=== PATIENT | male | born 1955 | race Caucasian/White ===

== ENCOUNTER 2016-09-21 14:53 | Emergency (ER) | payer BC ==
[2016-09-21 14:59] VITALS: RESP 18
--- NOTE | 2016-09-21 15:20 | ED ---
General Adult HPI - General Chief complaint: Wound/Laceration Stated complaint: Foot Pain Time Seen by Provider: 09/21/16 15:03 Source: patient, EMS Mode of arrival: EMS Limitations: no limitations - History of Present Illness Initial comments: Patient is a 61-year-old diabetic male who presents to the emergency department for evaluation of a laceration to the plantar surface of his left foot. Patient states that he stepped into a swimming pool and believes that he stepped on a broken plastic thermostat which immediately cut his foot. Patient reports that he saw a broken piece of plastic and is concerned that it may still be inside the wound. Patient takes 81 mg aspirin daily but no other antiplatelet or anticoagulant medications. He does have established follow-up care with the lay out machine operator. He is a poorly controlled diabetic but has no other obvious foot wounds or non-healing ulcers. Patient believes his last tetanus vaccination was in the past 3 years. Patient denies any other complaints or injuries. - Related Data Home Medications Medication Instructions Recorded Confirmed Aspirin EC [Ecotrin Low Dose] 81 mg PO DAILY 09/21/16 09/21/16 Diltiazem Cd [Cardizem Cd] 120 mg PO DAILY 09/21/16 09/21/16 HYDROcodone/APAP 10-325MG [Stanley 1 tab PO BID PRN 09/21/16 09/21/16 10-325] Metoprolol Tartrate [Lopressor] 25 mg PO BID 09/21/16 09/21/16 Pravastatin Sodium [Pravachol] 20 mg PO DAILY 09/21/16 09/21/16 Tamsulosin HCl [Flomax] 0.4 mg PO BID 09/21/16 09/21/16 Testosterone Cypionate 200 mg SQ Q84D 09/21/16 09/21/16 [Depo-Testosterone] metFORMIN HCL 1,000 mg PO BID 09/21/16 09/21/16 Allergies Allergy/AdvReac Type Severity Reaction Status Date / Time No Known Allergies Allergy Unverified 09/21/16 15:25 Review of Systems ROS Statement: Those systems with pertinent positive or pertinent negative responses have been documented in the HPI. ROS Other: All systems not noted in ROS Statement are negative. Eyes: Denies: vision change Respiratory: Denies: cough, dyspnea Cardiovascular: Denies: chest pain, palpitations Endocrine: Denies: fatigue Gastrointestinal: Denies: abdominal pain, nausea, vomiting Genitourinary: Denies: urgency, dysuria Musculoskeletal: Denies: back pain Skin: Reports: other (laceration to left foot) Neurological: Denies: headache Hematological/Lymphatic: Denies: easy bleeding, easy bruising Past Medical History Past Medical History: Diabetes Mellitus Additional Past Medical History / Comment(s): Bypass surgery History of Any Multi-Drug Resistant Organisms: None Reported Past Surgical History: Heart Catheterization Past Psychological History: No Psychological Hx Reported Smoking Status: Former smoker Past Alcohol Use History: None Reported Past Drug Use History: None Reported General Exam Limitations: no limitations General appearance: alert, in no apparent distress, obese Head exam: Present: atraumatic, normocephalic, normal inspection Eye exam: Present: normal appearance, PERRL, EOMI. Absent: scleral icterus, conjunctival injection, periorbital swelling ENT exam: Present: normal exam, mucous membranes moist Neck exam: Present: normal inspection. Absent: tenderness, meningismus, lymphadenopathy Respiratory exam: Present: normal lung sounds bilaterally. Absent: respiratory distress, wheezes, rales, rhonchi, stridor Cardiovascular Exam: Present: regular rate, normal rhythm, normal heart sounds. Absent: systolic murmur, diastolic murmur, rubs, gallop, clicks GI/Abdominal exam: Present: soft, normal bowel sounds. Absent: distended, tenderness, guarding, rebound, rigid Extremities exam: Present: full ROM, normal capillary refill. Absent: tenderness, pedal edema, joint swelling, calf tenderness Left Foot/Toe exam: Present: full ROM, laceration (Approximately 2 cm V-shaped laceration to the plantar surface of the foot). Absent: swelling, ecchymosis, deformity, crepitus, dislocation, erythema, amputation Back exam: Present: normal inspection Neurological exam: Present: alert, oriented X3, CN II-XII intact Psychiatric exam: Present: normal affect, normal mood Skin exam: Present: other (laceration as above) Course Vital Signs 09/21/16 14:55 Temperature 97.3 F L Pulse Rate 88 Respiratory 18 Rate Blood Pressure 150/70 O2 Sat by Pulse 96 Oximetry Procedures - Laceration Laceration #1 Consent Obtained: verbal consent Indication: laceration Site: foot Size (cm): 2 Description: linear Depth: simple, single layer Sedation/Analgesia: none Anesthetic Used: lidocaine 1% Anesthesia Technique: local infiltration Pre-repair: wound explored, irrigated extensively, deep structures intact Type of Sutures: vicryl Size of Sutures: 4-0 Number of Sutures: 4 Technique: simple, interrupted Patient Tolerated Procedure: well, no complications Medical Decision Making - Medical Decision Making Patient was seen and evaluated, vital signs were reviewed History is obtained from the patient Physical exam, laceration to the ball of the left foot Per patient his tetanus vaccination is up-to-date Patient has concern that there is foreign body X-ray ordered X-ray with no obvious foreign body Patient's wound was cleansed with Betadine, anesthetized with local anesthetic and explored there were no foreign bodies identified the wound was repaired with 4 simple interrupted sutures All questions pertaining to care were answered to the best my ability and the patient was discharged home in stable condition advised to follow up with PCP as well as podiatry for close monitoring of this foot wound. Had extensive conversation with the patient as well as his regarding the high risk of poor wound healing and development of chronic foot ulcers due to his poorly controlled diabetes. Patient and expressed understanding. Patient has follow-up appointment with an deckhand engineer next week to discuss further management of his diabetes. Disposition Clinical Impression: Laceration Disposition: HOME SELF-CARE Condition: Good Instructions: Care For Your Absorbable Stitches (ED) Referrals: Francesco Acosta MD [Primary Care Provider] - 1-2 days Time of Disposition: 16:15
--- NOTE | 2016-09-21 15:25 | XR ---
EXAMINATION TYPE: XR foot complete LT DATE OF EXAM: 09/21/2016 CLINICAL HISTORY: pain TECHNIQUE: Frontal, lateral and oblique images of the left foot are obtained. COMPARISON: None. FINDINGS: There is no acute fracture/dislocation evident. The joint spaces appear within normal tanner its. The overlying soft tissue appears unremarkable. IMPRESSION: There is no acute fracture or dislocation. ICD 10 NO FRACTURE, INITIAL EVALUATION
[2016-09-21] MEDS ORDERED: DIPH,PERTUS(ACELL)TETVAC-LF 0.5 ML VIAL IM ONE (16:47)
[2016-09-21 16:48] VITALS: BP 142/63; PULSE 86; TEMP 97.6
== END 2016-09-21 17:00 | disposition home or self-care (01) ==
LOC: EC 14:53
DX: S91.312A Laceration without foreign body, left foot, initial encounter (principal); E11.9 Type 2 diabetes mellitus without complications; Z23 Encounter for immunization; Z95.5 Presence of coronary angioplasty implant and graft; Z79.82 Long term (current) use of aspirin; Z79.84 Long term (current) use of oral hypoglycemic drugs; Z79.899 Other long term (current) drug therapy; Z87.891 Personal history of nicotine dependence; W45.8XXA Other foreign body or object entering through skin, initial encounter; Y92.34 Swimming pool (public) as the place of occurrence of the external cause
CPT/HCPCS: 12001; 90471; 90715; 99283

== ENCOUNTER 2016-10-01 10:28 | Emergency (ER) | payer BC ==
--- NOTE | 2016-10-01 12:17 | ED ---
Skin/Abscess/FB HPI - General Chief complaint: Skin/Abscess/Foreign Body Stated complaint: Revisit-Swollen Foot Source: patient Mode of arrival: wheelchair Limitations: no limitations - History of Present Illness Initial comments: 61-year-old male presented for reevaluation of laceration of the bottom of his left foot. He states 10 days ago that he was seen at this facility for a laceration to the foot which was repaired and he was discharged with instructions to follow with his primary care physician. He states during this time his foot remained sore and became harder to walk on. He was seen by billet worker and given a prescription for Cipro on Tuesday and although he's been taking it during this time his symptoms have continued progress. He states that there is also swelling to the left foot and erythema between his toes. He denies any nausea, vomiting, fevers, chills, chest pain, shortness of breath, myalgias, arthralgias. He states the wound remains intact and he's been cleaning it as often as possible. There is no discharge from the wound and is clean dry and intact. - Related Data Home Medications Medication Instructions Recorded Confirmed Aspirin EC [Ecotrin Low Dose] 81 mg PO DAILY 09/21/16 10/01/16 Diltiazem Cd [Cardizem Cd] 120 mg PO DAILY 09/21/16 10/01/16 HYDROcodone/APAP 10-325MG [Venus 1 tab PO BID PRN 09/21/16 10/01/16 10-325] Metoprolol Tartrate [Lopressor] 12.5 mg PO BID 09/21/16 10/01/16 Pravastatin Sodium [Pravachol] 20 mg PO DAILY 09/21/16 10/01/16 Tamsulosin HCl [Flomax] 0.4 mg PO BID 09/21/16 10/01/16 Testosterone Cypionate 200 mg SQ Q84D 09/21/16 10/01/16 [Depo-Testosterone] Repaglinide [Prandin] 2 mg PO TID 10/01/16 10/01/16 Previous Rx's Medication Instructions Recorded HYDROcodone/APAP 5-325MG [Venus 1 - 2 tab PO Q6HR PRN #14 tab 10/01/16 5-325] Allergies Allergy/AdvReac Type Severity Reaction Status Date / Time No Known Allergies Allergy Verified 10/01/16 10:50 Review of Systems ROS Statement: Those systems with pertinent positive or pertinent negative responses have been documented in the HPI. ROS Other: All systems not noted in ROS Statement are negative. Constitutional: Denies: fever, chills Eyes: Denies: eye pain, eye discharge ENT: Denies: ear pain, throat pain Respiratory: Denies: cough, dyspnea Cardiovascular: Denies: chest pain, palpitations, dyspnea on exertion, orthopnea Endocrine: Denies: fatigue, polydipsia, polyuria Gastrointestinal: Denies: abdominal pain, nausea, vomiting Genitourinary: Denies: urgency, dysuria Musculoskeletal: Reports: other (pain to the inferior portion of his left foot with overlying swelling). Denies: back pain, arthralgia Skin: Reports: other (healing laceration to the bottom of his left foot). Denies: rash, lesions Neurological: Denies: headache, weakness Psychiatric: Denies: anxiety, depression Hematological/Lymphatic: Denies: easy bleeding, easy bruising Past Medical History Past Medical History: Diabetes Mellitus Additional Past Medical History / Comment(s): Bypass surgery History of Any Multi-Drug Resistant Organisms: None Reported Past Surgical History: Heart Catheterization Past Psychological History: No Psychological Hx Reported Smoking Status: Former smoker Past Alcohol Use History: None Reported Past Drug Use History: None Reported General Exam Limitations: no limitations General appearance: alert, in no apparent distress Head exam: Present: atraumatic, normocephalic, normal inspection Eye exam: Present: normal appearance, PERRL, EOMI. Absent: scleral icterus, conjunctival injection, periorbital swelling ENT exam: Present: normal exam, mucous membranes moist Neck exam: Present: normal inspection. Absent: tenderness, meningismus, lymphadenopathy Respiratory exam: Present: normal lung sounds bilaterally. Absent: respiratory distress, wheezes, rales, rhonchi, stridor Cardiovascular Exam: Present: regular rate, normal rhythm, normal heart sounds. Absent: systolic murmur, diastolic murmur, rubs, gallop, clicks GI/Abdominal exam: Present: soft, normal bowel sounds. Absent: distended, tenderness, guarding, rebound, rigid Rectal exam: Present: deferred Extremities exam: Present: full ROM, tenderness (plantar surface of left foot), normal capillary refill, pedal edema (left foot). Absent: joint swelling, calf tenderness Back exam: Present: normal inspection Neurological exam: Present: alert, oriented X3, CN II-XII intact Psychiatric exam: Present: normal affect, normal mood Skin exam: Present: warm, dry, rash (Between toes most consistent with fungal infection), other (laceration well approximated, clean/dry/intact with minimal erythema and almost no induration. There is pedal edema to the left foot. ) Course Vital Signs 10/01/16 10/01/16 10:36 12:25 Temperature 99 F 97.7 F Pulse Rate 52 L 57 L Respiratory 20 16 Rate Blood Pressure 136/59 158/76 O2 Sat by Pulse 97 97 Oximetry Medical Decision Making - Medical Decision Making 61-year-old male presented for evaluation of laceration of bottom of his left foot. He was seen at this facility 10 days ago at which time the laceration was repaired without complication. Since then he has had progressively worsening pain to the foot and today started having swelling to the foot as well. On physical examination the laceration is clean dry and intact without discharge. There is minor erythema distal to the laceration with only minimal induration. There is swelling circumferentially to the foot however there is no spreading erythema/cellulitis. Rash to the interdigit webs is most consistent with a fungal infection. Given that the patient was just started on a course of Cipro and the wound appears to be healing well with only minimal surrounding cellulitis will advise him to continue on the ciprofloxacin , provide him with pain control, and have him follow-up with his primary care physician as an outpatient. He was given return instructions. The patient acknowledged an understanding of this information and agreed with this plan of care. Disposition Clinical Impression: Encounter for wound re-check, Cellulitis Disposition: HOME SELF-CARE Condition: Stable Instructions: Abscess Incision and Drainage (ED) Additional Instructions: Please use medication as discussed. Please follow up with family doctor if symptoms have not improved over the next two days. Please return to the emergency room if your symptoms increase or worsen or for any other concerns. Prescriptions: HYDROcodone/APAP 5-325MG [Venus 5-325] 1 - 2 tab PO Q6HR PRN #14 tab PRN Reason: Analgesia Referrals: Francesco Acosta MD [Primary Care Provider] - 1-2 days Time of Disposition: 12:17
[2016-10-01] MEDS ORDERED: HYDROcodone/APAP 5-325MG 1 EACH TAB PO STA (12:30)
[2016-10-01 12:40] VITALS: BP 158/76; PULSE 57; RESP 16; TEMP 97.7
== END 2016-10-01 12:37 | disposition home or self-care (01) ==
LOC: EC 10:28
DX: L03.116 Cellulitis of left lower limb (principal); S91.312D Laceration without foreign body, left foot, subsequent encounter; E11.9 Type 2 diabetes mellitus without complications; Z87.891 Personal history of nicotine dependence; Z79.82 Long term (current) use of aspirin; Z79.84 Long term (current) use of oral hypoglycemic drugs; Z79.899 Other long term (current) drug therapy; Y92.89 Other specified places as the place of occurrence of the external cause
CPT/HCPCS: 99282

== ENCOUNTER → 2017-09-23 | Outpatient (CLI) | payer BC ==
--- NOTE | 2017-09-23 11:56 | CT ---
EXAMINATION TYPE: CT pelvis w con DATE OF EXAM: 09/23/2017 COMPARISON: None HISTORY: Patient complains of pericoccygeal pain. CT DLP: 1155.1 mGycm Automated exposure control for dose reduction was used. CONTRAST: Performed with IV Contrast, patient injected with 100 mL of Isovue 300. FINDINGS: Right paracentral to the distal coccyx there is a 1.6 x 1.0 cm fluid collection containing foci of ai r and surrounding enhancing thick rim with adjacent phlegmonous changes. This is also adjacent to a l eft paracentral sacral decubitus ulceration with linear extent to the left ischial tuberosity. The di stal coccyx on the sagittal image is irregular and there is been destructive reabsorption of the most distal aspect of the coccyx such as on series 13 image 55. There is subsequent presacral soft tissue swelling and fluid measuring 2.4 cm without enhancing capsule to suggest additional site of abscess. There is thickening of the surrounding posterior pelvic floor musculature likely relating to myositi s. Surrounding the left ischial tuberosity at the most distal aspect of the left sacral linear decubitus ulceration there is surrounding extensive inflammatory fat stranding and phlegmonous changes with a very small fluid collection measuring approximately 0.9 x 1.0 cm and adjacent osseous irregularity kelly ch as on series 11 image 114 of the initial tuberosity suggesting osteomyelitis. Hagan catheter is seen within the nondistended urinary bladder. Bowel is nondilated. Mild mesenteric vascular congestion is seen although motion artifact is noted on the most superior images. Presumed l eft-sided ostomy is present. Increased density of the lower lumbar spine and lumbosacral junction in the region of the paraspinal musculature likely relates to postoperative fibrosis as there is no sign ificant surrounding inflammatory fat stranding and partial visualization of resection of the posterio r elements from L2 through S1 are noted. Anterior bridging osteophytes are seen with intervertebral d isc cage at L5-S1. There is a nonspecific sclerotic focus within the right pelvic bone measuring 1.2 cm with surrounding lucency. Extensive degenerative changes of the femoral acetabular joints are seen. IMPRESSION: 1. FINDINGS SUGGESTIVE OF MULTIFOCAL OSTEOMYELITIS. THE FIRST LOCATION INVOLVES THE DISTAL COCCYX WIT H RIGHT PARACENTRAL DISTAL COCCYGEAL SOFT TISSUE ABSCESS MEASURING ONLY 1.0 X 1.6 CM AND THE SECOND S ITE IS SEEN WITHIN THE LEFT ISCHIAL TUBEROSITY AND SURROUNDING SOFT TISSUE SWELLING IS WITHIN ABSCESS MEASURING 0.9 X 1.0 CM. BOTH SITES DEMONSTRATE CORTICAL IRREGULARITY COMPATIBLE WITH OSTEOMYELITIS. ELONGATED LEFT PARACENTRAL SACRAL DECUBITUS ULCERATION EXTENDS FROM THE SKIN SURFACE TO THE LEFT INIT IAL TUBEROSITY. 2. PRESACRAL SOFT TISSUE DENSITY AND LEFT-SIDED PELVIC FLOOR MUSCULATURE ENLARGEMENT LIKELY REACTIVE AND RELATED TO PRESACRAL EDEMA AND MYOSITIS. 3. SOFT TISSUE DENSITY IN THE PARASPINAL MUSCULATURE OF THE LUMBOSACRAL SPINE LIKELY RELATES TO POSTS URGICAL CHANGE. A Yellow level critical message alert has been initiated for Laureano Cancino MD via the [employer] Critical Results System on 09/23/2017 11:53 AM. This message alert has been sent to Laureano Cancino MD via the preferences provided by the clinician for the receipt of Radiology Critical Findings. [employer] e ID [id number].
== END | disposition home or self-care (01) ==
LOC: RADCTMAIN 10:13
PROVIDERS: ATTEND Internal Medicine Infectious Disease
DX: L02.212 Cutaneous abscess of back [any part, except buttock and flank] (principal); L89.159 Pressure ulcer of sacral region, unspecified stage
CPT/HCPCS: 72193; Q9967

== ENCOUNTER → 2017-10-05 | Day surgery (SDC) | payer BC ==
[2017-10-03 09:08] VITALS: BMI 31.6
[~2017-10-05] MED LIST: LIDOCAINE 1% INJ 10MG/ML (20 ML MDV) ONE; LIDOCAINE 1% INJ 10MG/ML (20 ML MDV) SQ ONE; PIPERACILLIN-TAZOBACTAM 3.375 GM in DEXTROSE/WATER 1 50ML.BAG IVPB ONE
[2017-10-05 11:52] LABS: Glucose,Whole Blood 163 mg/dL (75-99)
[2017-10-05 11:59] LABS: Basophils % (A) 0 %; Eosinophils # (A) 0.2 k/uL (0-0.7); Eosinophils % (A) 2 %; HCT 25.1 % (39.0-53.0); HGB 7.8 gm/dL (13.0-17.5); Hypochromasia Marked; Lymphocytes # (A) 0.8 k/uL (1.0-4.8); Lymphocytes % (A) 11 %; MCH 24.4 pg (25.0-35.0); MCV 78.4 fL (80.0-100.0); Mean Platelet Volume 6.7; Monocytes # (A) 0.3 k/uL (0-1.0); Monocytes % (A) 4 %; Neutrophils # (A) 5.9 k/uL (1.3-7.7); Neutrophils % (A) 80 %; Platelet Count 322 k/uL (150-450); RDW 14.8 % (11.5-15.5); WBC 7.3 k/uL (3.8-10.6)
[2017-10-05 12:05] LABS: Anion Gap 7 mmol/L; Blood Urea Nitrogen 10 mg/dL (9-20); Carbon Dioxide 27 mmol/L (22-30); Chloride 105 mmol/L (98-107); Potassium 3.9 mmol/L (3.5-5.1); Sodium 139 mmol/L (137-145)
--- NOTE | 2017-10-05 14:21 | IR ---
PICC LINE PLACEMENT: HISTORY: Infection requiring long-term antibiotic therapy PROCEDURE: Ultrasound and fluoroscopic guidance of PICC line placement. COMPLICATIONS: None ANESTHESIA: 1. 1% Lidocaine locally. FINDINGS/TECHNIQUE: The procedure was explained to the patient. The risks, complications, benefits and alternatives were discussed and any questions were answered. Informed consent was obtained. The patient was placed supine on the fluoroscopic table and prepped and draped in the usual sterile fas ion. Utilizing a 21 gauge needle and sonographic and fluoroscopic guidance, access in the vein was achieved and there is placement of a 0.018 guidewire. The vein is patent. A 4-F sheath was placed o ya the guidewire. The guidewire and dilator were removed and a 4-F. PICC line was placed through th e sheath with the tip at the level of the SVC. The sheath was removed, the catheter was flushed and sutured into position. The patient was stable throughout the procedure and remained stable upon disc harge from the Department of Radiology. The vein puncture was patent under ultrasound. A cuellar scale image was obtained to document patency of the vein punctured. All elements of the maximal barrier technique were utilized. FLUOROSCOPY TIME: 0.1 minute, one image submitted. IMPRESSION: Successful PICC line placement under ultrasound and fluoroscopic guidance.
[2017-10-05 14:36] VITALS: RESP 18
== END | disposition home or self-care (01) ==
LOC: CATHCVL 11:01
PROVIDERS: ATTEND Radiology Diagnostic Radiology
DX: M86.8X0 Other osteomyelitis, multiple sites (principal); L89.890 Pressure ulcer of other site, unstageable
CPT/HCPCS: 36569; 76937; 77001; 80051; 82565; 84520; 85025; C1751; C1769; J2001; J2543

== ENCOUNTER 2017-11-27 04:30 | Emergency (ER) | payer BC ==
--- NOTE | 2017-11-27 05:30 | XR ---
EXAM: XR Chest, 1 View CLINICAL HISTORY: Dyspnea. TECHNIQUE: Frontal view of the chest. COMPARISON: No relevant prior studies available. FINDINGS: Lungs: No focal consolidation. No evidence of pulmonary edema. Pleural space: No pleural effusion. No pneumothorax. Heart: Unremarkable. No cardiomegaly. Mediastinum: Unremarkable. No mediastinal widening. Bones/joints: Osseous degenerative changes. No evidence of acute fracture. Sternotomy wires present. IMPRESSION: No radiographic evidence of acute chest abnormality.
[2017-11-27 05:58] LABS: ALT 30 U/L (21-72); AST 22 U/L (17-59); Alkaline Phosphatase 94 U/L (38-126); Anion Gap 4 mmol/L; Blood Urea Nitrogen 12 mg/dL (9-20); Calcium 8.7 mg/dL (8.4-10.2); Carbon Dioxide 26 mmol/L (22-30); Chloride 110 mmol/L (98-107); Glucose 111 mg/dL (74-99); Magnesium 1.9 mg/dL (1.6-2.3); Potassium 3.7 mmol/L (3.5-5.1); Sodium 140 mmol/L (137-145); Total Bilirubin 0.6 mg/dL (0.2-1.3); Total Protein 6.2 g/dL (6.3-8.2)
[2017-11-27 06:23] LABS: Creatine Kinase 47 U/L (55-170)
[2017-11-27 06:29] LABS: Troponin I <0.012 ng/mL (0.000-0.034)
[2017-11-27 07:04] LABS: Anisocytosis Slight; Basophils % (A) 1 %; Eosinophils # (A) 0.3 k/uL (0-0.7); Eosinophils % (A) 5 %; HCT 33.7 % (39.0-53.0); HGB 10.8 gm/dL (13.0-17.5); Hypochromasia Slight; Lymphocytes # (A) 0.8 k/uL (1.0-4.8); Lymphocytes % (A) 13 %; MCH 27.7 pg (25.0-35.0); MCHC 32.2 g/dL (31.0-37.0); MCV 85.8 fL (80.0-100.0); Monocytes # (A) 0.4 k/uL (0-1.0); Monocytes % (A) 7 %; Neutrophils # (A) 4.3 k/uL (1.3-7.7); Neutrophils % (A) 74 %; Platelet Count 154 k/uL (150-450); Poikilocytosis Slight; RBC 3.92 m/uL (4.30-5.90); RDW 18.1 % (11.5-15.5); WBC 5.8 k/uL (3.8-10.6)
[2017-11-27 07:31] LABS: INR 1.2 (<1.2); Partial Thromboplastin Time 26.3 sec (22.0-30.0); Prothrombin Time 11.4 sec (9.0-12.0)
[2017-11-27 07:33] LABS: Creatine Kinase MB 1.7 ng/mL (0.0-2.4)
[2017-11-27 07:33] LABS: D-Dimer 0.69 mg/L FEU (<0.60)
--- NOTE | 2017-11-27 08:42 | CT ---
EXAMINATION TYPE: CT angio chest DATE OF EXAM: 11/27/2017 8:37 AM COMPARISON: HISTORY: SOB CT DLP: 798.5 mGycm Automated exposure control for dose reduction was used. CONTRAST: CTA scan of the thorax is performed with IV Contrast, patient injected with 66 mL of Isovue 370, pulm onary embolism protocol. . FINDINGS: There is dependent atelectasis or early consolidation in the dependent portions of both angella gs. There is no significant axillary, mediastinal or hilar adenopathy. There is no evidence of pulmonary embolus. The aorta is normal in caliber without evidence of dissection. The heart is enlarged. There is no pleural or pericardial fluid. There is some increased density with in the gallbladder. I could not exclude radiolucent gallstones. There is hypertrophic spondylosis within the spine. IMPRESSION: #1 THIS EXAMINATION IS NEGATIVE FOR PULMONARY EMBOLUS. 2. CARDIOMEGALY. 3. I CANNOT EXCLUDE RADIOLUCENT GALLSTONES.
--- NOTE | 2017-11-27 09:50 | ED ---
SOB HPI - General Chief Complaint: Shortness of Breath Stated Complaint: MALLIKA Time Seen by Provider: 11/27/17 04:55 Source: family, EMS Mode of arrival: EMS - History of Present Illness Initial Comments: This patient is a 62-year-old man who presents with an episode of dyspnea that came on tonight. The patient woke from sleep gasping to breathe and was feeling very short of breath. Patient's phoned EMS, who arrived promptly and place patient on oxygen. By the time the patient has arrived in the emergency department his symptoms have all resolved. Patient denies having any other associated symptoms. He did not have any chest pain or any sensation of palpitations. No fever or chills. No cough. Patient's does note that he recently has been given diazepam which she uses before bed, to help him relax for his hyperbaric oxygen chamber sessions. She does note that he has seemed very somnolent at times in the medicine seems to be giving him slurred speech. MD Complaint: shortness of breath -: minutes(s) Severity: severe Consistency: now resolved Improves With: oxygen Worsens With: nothing Context: other (medication change) Associated Symptoms: denies other symptoms Treatments Prior to Arrival: oxygen - Related Data Home Oxygen Therapy: No Home Medications Medication Instructions Recorded Confirmed Diltiazem Cd [Cardizem Cd] 120 mg PO DAILY 09/21/16 11/24/17 Metoprolol Tartrate [Lopressor] 25 mg PO BID 09/21/16 11/24/17 Apixaban [Eliquis] 5 mg PO BID 07/27/17 11/24/17 Atorvastatin [Lipitor] 20 mg PO HS 07/27/17 11/24/17 Finasteride [Proscar] 5 mg PO DAILY 07/27/17 11/24/17 HYDROcodone/APAP 7.5-325MG [[place] 1 tab PO Q6HR PRN 07/27/17 11/24/17 7.5-325] Insulin Glargine [Lantus] 40 unit SQ HS 07/27/17 11/24/17 Loratadine [Claritin] 10 mg PO DAILY 07/27/17 11/24/17 Multivitamins, Thera [Multivitamin 1 tab PO DAILY 07/27/17 11/24/17 (formulary)] Ferrous Sulfate [Feosol] 325 mg PO DAILY 10/03/17 11/24/17 Lisinopril [Prinivil] 5 mg PO DAILY 10/03/17 11/24/17 Pantoprazole Sodium 40 mg PO DAILY 10/03/17 11/24/17 Pravastatin Sodium [Pravachol] 20 mg PO DAILY 10/03/17 11/24/17 Repaglinide [Prandin] 2 mg PO AC-TID 10/03/17 11/24/17 Zinc 25 mg PO DAILY 10/03/17 11/24/17 amLODIPine [Norvasc] 5 mg PO DAILY 10/03/17 11/24/17 Piperacillin-Tazobactam [Zosyn] 3.375 gm IVPB Q6H 10/06/17 11/24/17 Diazepam [Valium] 5 mg PO HS 11/17/17 11/24/17 Allergies Allergy/AdvReac Type Severity Reaction Status Date / Time No Known Allergies Allergy Verified 11/24/17 09:00 Review of Systems ROS Statement: Those systems with pertinent positive or pertinent negative responses have been documented in the HPI. ROS Other: All systems not noted in ROS Statement are negative. Constitutional: Denies: fever, chills, weakness Eyes: Denies: vision change Respiratory: Reports: as per HPI, dyspnea. Denies: cough, wheezes, hemoptysis Cardiovascular: Denies: chest pain, palpitations, orthopnea, edema, syncope Gastrointestinal: Denies: abdominal pain, vomiting, diarrhea Genitourinary: Denies: dysuria, hematuria Musculoskeletal: Denies: back pain Skin: Denies: rash Neurological: Denies: headache Psychiatric: Reports: as per HPI, anxiety Past Medical History Past Medical History: Diabetes Mellitus, Deep Vein Thrombosis (DVT), GERD/Reflux , Hyperlipidemia, Hypertension Additional Past Medical History / Comment(s): DVT BILAT LEGS. PT IS BED RIDDEN- WOUNDS TO COCCYX AND BUTTOCKS WITH TUNNELLING. PARALIZED WAIST DOWN SINCE LAMINECTOMY FEB 15, 2017; has wound vac; History of Any Multi-Drug Resistant Organisms: MRSA, VRE Date of last positivie culture/infection: 07/28/17 VRE & MRSA MDRO Source:: Coccyx Past Surgical History: Back Surgery, Bowel Resection, Coronary Bypass/CABG, Heart Catheterization Additional Past Surgical History / Comment(s): LAMINECTOMY 02/15/17. COLONOSCOPY. COLOSTOMY. SUB PUBIC CATH. BACK SX X 4 Past Anesthesia/Blood Transfusion Reactions: Previous Problems w/ Anesthesia Additional Past Anesthesia/Blood Transfusion Reaction / Comment(s): SLOW TO COME OUT OF ANESTHESIA AFTER LAST PROCEDURE Past Psychological History: Anxiety Smoking Status: Former smoker Past Alcohol Use History: None Reported Past Drug Use History: None Reported - Past Family History Brother(s) Family Medical History: Cancer General Exam General appearance: alert, in no apparent distress Head exam: Present: atraumatic, normocephalic Eye exam: Present: normal appearance. Absent: scleral icterus, conjunctival injection ENT exam: Present: mucous membranes dry Neck exam: Present: normal inspection, other (No JVD) Respiratory exam: Present: normal lung sounds bilaterally. Absent: respiratory distress, wheezes, rales, rhonchi, stridor, accessory muscle use, decreased breath sounds, prolonged expiratory Cardiovascular Exam: Present: regular rate, normal rhythm, normal heart sounds. Absent: systolic murmur, diastolic murmur, rubs, gallop GI/Abdominal exam: Present: soft. Absent: distended, tenderness, guarding, rebound, mass Extremities exam: Present: normal inspection, normal capillary refill. Absent: pedal edema, calf tenderness Neurological exam: Present: alert Skin exam: Present: warm, dry, intact, normal color. Absent: rash, cyanosis, diaphoretic, erythema, petechiae, pallor, mottled Course Vital Signs 11/27/17 04:43 Temperature 97.0 F L Pulse Rate 67 Respiratory 16 Rate Blood Pressure 131/60 O2 Sat by Pulse 97 Oximetry Medical Decision Making - Medical Decision Making Patient is 62-year-old man presenting with an episode of dyspnea that has resolved by the time he has arrived. His workup is negative. I did have a fairly lengthy discussion with the patient and his and they informed me that he has been suspected of having sleep apnea by a number of his previous physicians, but they were not able to obtain a sleep study for him. I did take the patient also oxygen and had a 20 minute conversation and he at no point becomes dyspneic from conversation and he remains comfortable. I discussed admission for further workup, but he is feeling well and wants go home. I did discuss follow-up with the mold repair technician to see about having sleep study, as well as return parameters. - Lab Data Result diagrams: 11/27/17 06:31 11/27/17 05:29 Lab Results 11/27/17 11/27/17 11/27/17 Range/Units 05:29 05:29 06:30 WBC (3.8-10.6) k/uL RBC (4.30-5.90) m/uL Hgb (13.0-17.5) gm/dL Hct (39.0-53.0) % MCV (80.0-100.0) fL MCH (25.0-35.0) pg MCHC (31.0-37.0) g/dL RDW (11.5-15.5) % Plt Count (150-450) k/uL Neutrophils % % Lymphocytes % % Monocytes % % Eosinophils % % Basophils % % Neutrophils # (1.3-7.7) k/uL Lymphocytes # (1.0-4.8) k/uL Monocytes # (0-1.0) k/uL Eosinophils # (0-0.7) k/uL Basophils # (0-0.2) k/uL Hypochromasia Poikilocytosis Anisocytosis PT 11.4 (9.0-12.0) sec INR 1.2 H (<1.2) APTT 26.3 (22.0-30.0) sec D-Dimer 0.69 H (<0.60) mg/L FEU Sodium 140 (137-145) mmol/L Potassium 3.7 (3.5-5.1) mmol/L Chloride 110 H (98-107) mmol/L Carbon Dioxide 26 (22-30) mmol/L Anion Gap 4 mmol/L BUN 12 (9-20) mg/dL Creatinine 0.75 (0.66-1.25) mg/dL Est GFR (CKD-EPI)AfAm >90 (>60 ml/min/1.73 sqM) Est GFR (CKD-EPI)NonAf >90 (>60 ml/min/1.73 sqM) Glucose 111 H (74-99) mg/dL Plasma Lactic Acid [place] (0.7-2.0) mmol/L Calcium 8.7 (8.4-10.2) mg/dL Magnesium 1.9 (1.6-2.3) mg/dL Total Bilirubin 0.6 (0.2-1.3) mg/dL AST 22 (17-59) U/L ALT 30 (21-72) U/L Alkaline Phosphatase 94 (38-126) U/L Total Creatine Kinase 47 L (55-170) U/L CK-MB (CK-2) 2.0 (0.0-2.4) ng/mL CK-MB (CK-2) Rel Index 4.3 Troponin I <0.012 (0.000-0.034) ng/mL NT-Pro-B Natriuret Pep pg/mL Total Protein 6.2 L (6.3-8.2) g/dL Albumin 3.0 L (3.5-5.0) g/dL 11/27/17 11/27/17 11/27/17 Range/Units 06:30 06:31 06:31 WBC 5.8 (3.8-10.6) k/uL RBC 3.92 L (4.30-5.90) m/uL Hgb 10.8 L (13.0-17.5) gm/dL Hct 33.7 L (39.0-53.0) % MCV 85.8 (80.0-100.0) fL MCH 27.7 (25.0-35.0) pg MCHC 32.2 (31.0-37.0) g/dL RDW 18.1 H (11.5-15.5) % Plt Count 154 (150-450) k/uL Neutrophils % 74 % Lymphocytes % 13 % Monocytes % 7 % Eosinophils % 5 % Basophils % 1 % Neutrophils # 4.3 (1.3-7.7) k/uL Lymphocytes # 0.8 L (1.0-4.8) k/uL Monocytes # 0.4 (0-1.0) k/uL Eosinophils # 0.3 (0-0.7) k/uL Basophils # 0.0 (0-0.2) k/uL Hypochromasia Slight Poikilocytosis Slight Anisocytosis Slight PT (9.0-12.0) sec INR (<1.2) APTT (22.0-30.0) sec D-Dimer (<0.60) mg/L FEU Sodium (137-145) mmol/L Potassium (3.5-5.1) mmol/L Chloride (98-107) mmol/L Carbon Dioxide (22-30) mmol/L Anion Gap mmol/L BUN (9-20) mg/dL Creatinine (0.66-1.25) mg/dL Est GFR (CKD-EPI)AfAm (>60 ml/min/1.73 sqM) Est GFR (CKD-EPI)NonAf (>60 ml/min/1.73 sqM) Glucose (74-99) mg/dL Plasma Lactic Acid [place] 0.9 (0.7-2.0) mmol/L Calcium (8.4-10.2) mg/dL Magnesium (1.6-2.3) mg/dL Total Bilirubin (0.2-1.3) mg/dL AST (17-59) U/L ALT (21-72) U/L Alkaline Phosphatase (38-126) U/L Total Creatine Kinase (55-170) U/L CK-MB (CK-2) (0.0-2.4) ng/mL CK-MB (CK-2) Rel Index Troponin I (0.000-0.034) ng/mL NT-Pro-B Natriuret Pep 654 pg/mL Total Protein (6.3-8.2) g/dL Albumin (3.5-5.0) g/dL 11/27/17 Range/Units 06:31 WBC (3.8-10.6) k/uL RBC (4.30-5.90) m/uL Hgb (13.0-17.5) gm/dL Hct (39.0-53.0) % MCV (80.0-100.0) fL MCH (25.0-35.0) pg MCHC (31.0-37.0) g/dL RDW (11.5-15.5) % Plt Count (150-450) k/uL Neutrophils % % Lymphocytes % % Monocytes % % Eosinophils % % Basophils % % Neutrophils # (1.3-7.7) k/uL Lymphocytes # (1.0-4.8) k/uL Monocytes # (0-1.0) k/uL Eosinophils # (0-0.7) k/uL Basophils # (0-0.2) k/uL Hypochromasia Poikilocytosis Anisocytosis PT (9.0-12.0) sec INR (<1.2) APTT (22.0-30.0) sec D-Dimer (<0.60) mg/L FEU Sodium (137-145) mmol/L Potassium (3.5-5.1) mmol/L Chloride (98-107) mmol/L Carbon Dioxide (22-30) mmol/L Anion Gap mmol/L BUN (9-20) mg/dL Creatinine (0.66-1.25) mg/dL Est GFR (CKD-EPI)AfAm (>60 ml/min/1.73 sqM) Est GFR (CKD-EPI)NonAf (>60 ml/min/1.73 sqM) Glucose (74-99) mg/dL Plasma Lactic Acid [place] (0.7-2.0) mmol/L Calcium (8.4-10.2) mg/dL Magnesium (1.6-2.3) mg/dL Total Bilirubin (0.2-1.3) mg/dL AST (17-59) U/L ALT (21-72) U/L Alkaline Phosphatase (38-126) U/L Total Creatine Kinase 46 L (55-170) U/L CK-MB (CK-2) 1.7 (0.0-2.4) ng/mL CK-MB (CK-2) Rel Index 3.7 Troponin I (0.000-0.034) ng/mL NT-Pro-B Natriuret Pep pg/mL Total Protein (6.3-8.2) g/dL Albumin (3.5-5.0) g/dL - EKG Data -: EKG Interpreted by De EKG shows normal: sinus rhythm, axis (Normal), intervals (Normal), QRS complexes (There is an incomplete right bundle-branch block), ST-T waves (Normal ) Rate: normal (Rate is proximal 60 8 PM) Interpretation: LVH Disposition Clinical Impression: Dyspnea Disposition: HOME SELF-CARE Condition: Fair Instructions: Sleep Apnea (DC), Shortness of Breath (ED) Is patient prescribed a controlled substance at d/c from ED?: No Referrals: Gilmer Lopez MD [Primary Care Provider] - 1-2 days Bernice Abreu MD [STAFF PHYSICIAN] - 1-2 days
[2017-11-27 10:22] VITALS: BP 177/81; PULSE 62; RESP 18; TEMP 98.6
== END 2017-11-27 11:05 | disposition home or self-care (01) ==
LOC: EC 04:30
DX: R06.02 Shortness of breath (principal); E11.9 Type 2 diabetes mellitus without complications; K21.9 Gastro-esophageal reflux disease without esophagitis; E78.5 Hyperlipidemia, unspecified; I10 Essential (primary) hypertension; F41.9 Anxiety disorder, unspecified; Z79.01 Long term (current) use of anticoagulants; Z79.4 Long term (current) use of insulin; Z79.899 Other long term (current) drug therapy; Z86.718 Personal history of other venous thrombosis and embolism; Z87.891 Personal history of nicotine dependence; Z95.1 Presence of aortocoronary bypass graft
CPT/HCPCS: 99285; 36415; 93005; 85379; 83880; 80053; 82550; 82553; 83605; 83735; 84484; 85025; 85610; 85730; 87040; 71045; 71275; Q9967

== ENCOUNTER 2017-12-08 10:05 | Inpatient (IN) | payer BC ==
[2017-12-08] MEDS ORDERED: SODIUM CHLORIDE 0.9% 1,000 ML IV ONE ×2 (10:33)
--- NOTE | 2017-12-08 10:39 | ED ---
Altered Mental Status HPI - General Chief Complaint: Altered Mental Status Stated Complaint: ALTERED MENTAL STATUS Time Seen by Provider: 12/08/17 10:07 Source: family, RN/MD, RN notes reviewed Mode of arrival: wheelchair Limitations: altered mental status, physical limitation - History of Present Illness Initial Comments: This is a 62-year-old male who is receiving IV antibiotics through a PICC line and being seen in the wound clinic for chronic wound apparently has had a decline over last 2 weeks was discussed over this past week he's had lethargy mood swings decreased oral intake confusion and some difficulty with speech. He was sent here for further evaluation no reports of nausea vomiting fevers chills sweats. He has an indwelling [place] catheter. No reports of any falls. No other known modifying factors at this time. MD Complaint: altered mental status, confusion, decreased responsiveness, weakness - Related Data Home Medications Medication Instructions Recorded Confirmed Diltiazem Cd [Cardizem Cd] 120 mg PO DAILY 09/21/16 12/08/17 Metoprolol Tartrate [Lopressor] 25 mg PO BID 09/21/16 12/08/17 Apixaban [Eliquis] 5 mg PO BID 07/27/17 12/08/17 Atorvastatin [Lipitor] 20 mg PO HS 07/27/17 12/08/17 Finasteride [Proscar] 5 mg PO DAILY 07/27/17 12/08/17 HYDROcodone/APAP 7.5-325MG [[place] 1 tab PO Q6HR PRN 07/27/17 12/08/17 7.5-325] Insulin Glargine [Lantus] 40 unit SQ HS 07/27/17 12/08/17 Loratadine [Claritin] 10 mg PO DAILY 07/27/17 12/08/17 Multivitamins, Thera [Multivitamin 1 tab PO DAILY 07/27/17 12/08/17 (formulary)] Ferrous Sulfate [Feosol] 325 mg PO DAILY 10/03/17 12/08/17 Lisinopril [Prinivil] 5 mg PO DAILY 10/03/17 12/08/17 Pantoprazole Sodium 40 mg PO DAILY 10/03/17 12/08/17 Pravastatin Sodium [Pravachol] 20 mg PO DAILY 10/03/17 12/08/17 Repaglinide [Prandin] 2 mg PO AC-TID 10/03/17 12/08/17 Zinc 25 mg PO DAILY 10/03/17 12/08/17 amLODIPine [Norvasc] 5 mg PO DAILY 10/03/17 12/08/17 Piperacillin-Tazobactam [Zosyn] 3.375 gm IVPB Q6H 10/06/17 12/08/17 Diazepam [Valium] 5 mg PO HS 11/17/17 12/08/17 Allergies Allergy/AdvReac Type Severity Reaction Status Date / Time No Known Allergies Allergy Verified 12/08/17 10:36 Review of Systems ROS Statement: Those systems with pertinent positive or pertinent negative responses have been documented in the HPI. ROS Other: All systems not noted in ROS Statement are negative. Past Medical History Past Medical History: Diabetes Mellitus, Deep Vein Thrombosis (DVT), GERD/Reflux , Hyperlipidemia, Hypertension Additional Past Medical History / Comment(s): DVT BILAT LEGS. PT IS BED RIDDEN- WOUNDS TO COCCYX AND BUTTOCKS WITH TUNNELLING. PARALIZED WAIST DOWN SINCE LAMINECTOMY FEB 15, 2017; has wound vac; History of Any Multi-Drug Resistant Organisms: MRSA, VRE Date of last positivie culture/infection: 07/28/17 VRE & MRSA MDRO Source:: Coccyx Past Surgical History: Back Surgery, Bowel Resection, Coronary Bypass/CABG, Heart Catheterization Additional Past Surgical History / Comment(s): LAMINECTOMY 02/15/17. COLONOSCOPY. COLOSTOMY. SUB PUBIC CATH. BACK SX X 4 Past Anesthesia/Blood Transfusion Reactions: Previous Problems w/ Anesthesia Additional Past Anesthesia/Blood Transfusion Reaction / Comment(s): SLOW TO COME OUT OF ANESTHESIA AFTER LAST PROCEDURE Past Psychological History: Anxiety Smoking Status: Former smoker Past Alcohol Use History: None Reported Past Drug Use History: None Reported - Past Family History Brother(s) Family Medical History: Cancer General Exam - General Exam Comments Initial Comments: This a well-developed obtunded male Limitations: altered mental status, physical limitation General appearance: obtunded Head exam: Present: atraumatic, normocephalic, normal inspection Eye exam: Present: normal appearance, PERRL, EOMI. Absent: scleral icterus, conjunctival injection, periorbital swelling ENT exam: Present: mucous membranes dry Neck exam: Present: normal inspection. Absent: tenderness, meningismus, lymphadenopathy Respiratory exam: Present: normal lung sounds bilaterally. Absent: respiratory distress, wheezes, rales, rhonchi, stridor Cardiovascular Exam: Present: regular rate, normal rhythm, normal heart sounds. Absent: systolic murmur, diastolic murmur, rubs, gallop, clicks GI/Abdominal exam: Present: soft, normal bowel sounds. Absent: distended, tenderness, guarding, rebound, rigid Extremities exam: Present: normal inspection, full ROM, normal capillary refill , other (PICC line in the left upper extremity). Absent: tenderness, pedal edema, joint swelling, calf tenderness Back exam: Present: normal inspection Neurological exam: Present: altered, CN II-XII intact Psychiatric exam: Present: other (Able to evaluate) Skin exam: Present: warm, dry, intact, normal color. Absent: rash Course Vital Signs 12/08/17 12/08/17 10:07 12:00 Temperature 97.7 F Pulse Rate 62 69 Respiratory 20 18 Rate Blood Pressure 150/76 165/77 O2 Sat by Pulse 96 97 Oximetry Medical Decision Making - Medical Decision Making I did discuss Pfizer the patient has and with Dr. Lopez patient will be admitted with neurological consultation and continued monitoring. Patient still demonstrates some difficulty with speech which his did note has been going on for about a week or so. - Lab Data Result diagrams: 12/08/17 10:30 12/08/17 10:30 Lab Results 12/08/17 12/08/17 12/08/17 Range/Units 10:25 10:30 10:30 WBC (3.8-10.6) k/uL RBC (4.30-5.90) m/uL Hgb (13.0-17.5) gm/dL Hct (39.0-53.0) % MCV (80.0-100.0) fL MCH (25.0-35.0) pg MCHC (31.0-37.0) g/dL RDW (11.5-15.5) % Plt Count (150-450) k/uL Neutrophils % % Lymphocytes % % Monocytes % % Eosinophils % % Basophils % % Neutrophils # (1.3-7.7) k/uL Lymphocytes # (1.0-4.8) k/uL Monocytes # (0-1.0) k/uL Eosinophils # (0-0.7) k/uL Basophils # (0-0.2) k/uL Hypochromasia Poikilocytosis Anisocytosis PT (9.0-12.0) sec INR (<1.2) APTT (22.0-30.0) sec Sodium (137-145) mmol/L Potassium (3.5-5.1) mmol/L Chloride (98-107) mmol/L Carbon Dioxide (22-30) mmol/L Anion Gap mmol/L BUN (9-20) mg/dL Creatinine (0.66-1.25) mg/dL Est GFR (CKD-EPI)AfAm (>60 ml/min/1.73 sqM) Est GFR (CKD-EPI)NonAf (>60 ml/min/1.73 sqM) Glucose (74-99) mg/dL Calcium (8.4-10.2) mg/dL Magnesium (1.6-2.3) mg/dL Total Bilirubin (0.2-1.3) mg/dL AST (17-59) U/L ALT (21-72) U/L Alkaline Phosphatase (38-126) U/L Ammonia <9 (<30) umol/L Total Creatine Kinase 53 L (55-170) U/L CK-MB (CK-2) 2.3 (0.0-2.4) ng/mL CK-MB (CK-2) Rel Index 4.3 Troponin I <0.012 (0.000-0.034) ng/mL Total Protein (6.3-8.2) g/dL Albumin (3.5-5.0) g/dL Urine Color Yellow Urine Appearance Cloudy (Clear) Urine pH 5.5 (5.0-8.0) Ur Specific [place] 1.026 (1.001-1.035) Urine Protein 1+ H (Negative) Urine Glucose (UA) Trace H (Negative) Urine Ketones 2+ H (Negative) Urine Blood Moderate H (Negative) Urine Nitrite Negative (Negative) Urine Bilirubin Negative (Negative) Urine Urobilinogen <2.0 (<2.0) mg/dL Ur Leukocyte Esterase Small H (Negative) Urine RBC 36 H (0-5) /hpf Urine WBC 12 H (0-5) /hpf Ur Squamous Epith Cells <1 (0-4) /hpf Calcium Oxalate Crystal Occasional H (None) /hpf Urine Mucus Rare H (None) /hpf Urine Opiates Screen Not Detected (NotDetected) Ur Oxycodone Screen Not Detected (NotDetected) Urine Methadone Screen Not Detected (NotDetected) Ur Propoxyphene Screen Not Detected (NotDetected) Ur Barbiturates Screen Not Detected (NotDetected) U Tricyclic Antidepress Detected H (NotDetected) Ur Phencyclidine Scrn Not Detected (NotDetected) Ur Amphetamines Screen Not Detected (NotDetected) U Methamphetamines Scrn Not Detected (NotDetected) U Benzodiazepines Scrn Detected H (NotDetected) Urine Cocaine Screen Not Detected (NotDetected) U Marijuana (THC) Screen Not Detected (NotDetected) 12/08/17 12/08/17 12/08/17 Range/Units 10:30 10:30 10:30 WBC 6.8 (3.8-10.6) k/uL RBC 4.00 L (4.30-5.90) m/uL Hgb 11.2 L (13.0-17.5) gm/dL Hct 34.5 L (39.0-53.0) % MCV 86.1 (80.0-100.0) fL MCH 27.9 (25.0-35.0) pg MCHC 32.4 (31.0-37.0) g/dL RDW 17.9 H (11.5-15.5) % Plt Count 189 (150-450) k/uL Neutrophils % 75 % Lymphocytes % 14 % Monocytes % 5 % Eosinophils % 4 % Basophils % 0 % Neutrophils # 5.1 (1.3-7.7) k/uL Lymphocytes # 0.9 L (1.0-4.8) k/uL Monocytes # 0.4 (0-1.0) k/uL Eosinophils # 0.3 (0-0.7) k/uL Basophils # 0.0 (0-0.2) k/uL Hypochromasia Slight Poikilocytosis Slight Anisocytosis Slight PT 11.5 (9.0-12.0) sec INR 1.2 H (<1.2) APTT 26.1 (22.0-30.0) sec Sodium 143 (137-145) mmol/L Potassium 3.5 (3.5-5.1) mmol/L Chloride 109 H (98-107) mmol/L Carbon Dioxide 28 (22-30) mmol/L Anion Gap 6 mmol/L BUN 11 (9-20) mg/dL Creatinine 0.77 (0.66-1.25) mg/dL Est GFR (CKD-EPI)AfAm >90 (>60 ml/min/1.73 sqM) Est GFR (CKD-EPI)NonAf >90 (>60 ml/min/1.73 sqM) Glucose 118 H (74-99) mg/dL Calcium 9.1 (8.4-10.2) mg/dL Magnesium 1.9 (1.6-2.3) mg/dL Total Bilirubin 0.7 (0.2-1.3) mg/dL AST 23 (17-59) U/L ALT 24 (21-72) U/L Alkaline Phosphatase 115 (38-126) U/L Ammonia (<30) umol/L Total Creatine Kinase (55-170) U/L CK-MB (CK-2) (0.0-2.4) ng/mL CK-MB (CK-2) Rel Index Troponin I (0.000-0.034) ng/mL Total Protein 6.6 (6.3-8.2) g/dL Albumin 3.3 L (3.5-5.0) g/dL Urine Color Urine Appearance (Clear) Urine pH (5.0-8.0) Ur Specific [place] (1.001-1.035) Urine Protein (Negative) Urine Glucose (UA) (Negative) Urine Ketones (Negative) Urine Blood (Negative) Urine Nitrite (Negative) Urine Bilirubin (Negative) Urine Urobilinogen (<2.0) mg/dL Ur Leukocyte Esterase (Negative) Urine RBC (0-5) /hpf Urine WBC (0-5) /hpf Ur Squamous Epith Cells (0-4) /hpf Calcium Oxalate Crystal (None) /hpf Urine Mucus (None) /hpf Urine Opiates Screen (NotDetected) Ur Oxycodone Screen (NotDetected) Urine Methadone Screen (NotDetected) Ur Propoxyphene Screen (NotDetected) Ur Barbiturates Screen (NotDetected) U Tricyclic Antidepress (NotDetected) Ur Phencyclidine Scrn (NotDetected) Ur Amphetamines Screen (NotDetected) U Methamphetamines Scrn (NotDetected) U Benzodiazepines Scrn (NotDetected) Urine Cocaine Screen (NotDetected) U Marijuana (THC) Screen (NotDetected) - EKG Data -: EKG Interpreted by Me EKG shows normal: sinus rhythm (Sinus rhythm rate 67 appear interval 154 QRS duration 110 daily since QTC 442/467 nonspecific T-wave configuration prolonged QT) - Radiology Data Radiology results: report reviewed (I did review the imaging and reports there is evidence of maxillary sinus disease no other acute findings however.), image reviewed Disposition Clinical Impression: Delirium due to general medical condition, Altered mental status Disposition: ADMITTED IP TO THIS HOSP Condition: Stable Referrals: Gilmer Lopez MD [Primary Care Provider] - 1-2 days
[2017-12-08 11:03] LABS: Anisocytosis Slight; Basophils % (A) 0 %; Eosinophils # (A) 0.3 k/uL (0-0.7); Eosinophils % (A) 4 %; HCT 34.5 % (39.0-53.0); HGB 11.2 gm/dL (13.0-17.5); Hypochromasia Slight; Lymphocytes # (A) 0.9 k/uL (1.0-4.8); Lymphocytes % (A) 14 %; MCH 27.9 pg (25.0-35.0); MCHC 32.4 g/dL (31.0-37.0); MCV 86.1 fL (80.0-100.0); Mean Platelet Volume 7.3; Monocytes # (A) 0.4 k/uL (0-1.0); Monocytes % (A) 5 %; Neutrophils # (A) 5.1 k/uL (1.3-7.7); Neutrophils % (A) 75 %; Platelet Count 189 k/uL (150-450); Poikilocytosis Slight; RDW 17.9 % (11.5-15.5); WBC 6.8 k/uL (3.8-10.6)
[2017-12-08 11:08] LABS: INR 1.2 (<1.2); Partial Thromboplastin Time 26.1 sec (22.0-30.0); Prothrombin Time 11.5 sec (9.0-12.0)
[2017-12-08 11:17] LABS: ALT 24 U/L (21-72); AST 23 U/L (17-59); Albumin 3.3 g/dL (3.5-5.0); Alkaline Phosphatase 115 U/L (38-126); Anion Gap 6 mmol/L; Blood Urea Nitrogen 11 mg/dL (9-20); Calcium 9.1 mg/dL (8.4-10.2); Carbon Dioxide 28 mmol/L (22-30); Chloride 109 mmol/L (98-107); Glucose 118 mg/dL (74-99); Magnesium 1.9 mg/dL (1.6-2.3); Potassium 3.5 mmol/L (3.5-5.1); Sodium 143 mmol/L (137-145); Total Bilirubin 0.7 mg/dL (0.2-1.3); Total Protein 6.6 g/dL (6.3-8.2)
[2017-12-08 11:17] LABS: Appearance,Urine Cloudy (Clear); Bilirubin,Urine Negative (Negative); Blood,Urine Moderate (Negative); Calcium Oxalate Crystals,Urine Occasional /hpf; Color,Urine Yellow; Glucose,Urine (UA) Trace (Negative); Ketones,Urine 2+ (Negative); Leukocyte Esterase,Urine Small (Negative); Mucus,Urine Rare /hpf; Nitrite,Urine Negative (Negative); PH, Urine 5.5 (5.0-8.0); Protein,Urine 1+ (Negative); RBC,Urine 36 /hpf (0-5); Specific Gravity,Urine 1.026 (1.001-1.035); Squamous Epithelial Cell,Urine <1 /hpf (0-4); Urobilinogen,Urine <2.0 mg/dL (<2.0); WBC,Urine 12 /hpf (0-5)
[2017-12-08 11:23] LABS: Amphetamine Screen,Urine Not Detected (NotDetected); Barbiturate Screen,Urine Not Detected (NotDetected); Benzodiazepines Screen,Urine Detected (NotDetected); Cocaine Screen,Urine Not Detected (NotDetected); Methadone Screen, Urine Not Detected (NotDetected); Opiate Screen,Urine Not Detected (NotDetected); Oxycodone Screen, Urine Not Detected (NotDetected); Phencyclidine Screen,Urine Not Detected (NotDetected); Tricyclic Antidepressant,Urine Detected (NotDetected); Urn Cannabinoid Scrn Not Detected (NotDetected)
[2017-12-08 11:24] LABS: Creatine Kinase 53 U/L (55-170)
[2017-12-08 11:35] LABS: Creatine Kinase MB 2.3 ng/mL (0.0-2.4); Troponin I <0.012 ng/mL (0.000-0.034)
--- NOTE | 2017-12-08 11:49 | XR ---
EXAMINATION TYPE: XR chest 2V DATE OF EXAM: 12/08/2017 COMPARISON: Prior chest 11/27/2017 HISTORY: Altered mental status TECHNIQUE: Frontal and lateral views of the chest are obtained. FINDINGS: The patient is post median sternotomy. There are overlying cardiac leads. Left-sided PICC l ine is in place, distal tip is overlying the superior vena cava. There is no focal air space opacity, pleural effusion, or pneumothorax seen. The cardiac silhouette size is within normal limits. The osseous structures are intact. IMPRESSION: No acute cardiopulmonary process.
--- NOTE | 2017-12-08 11:57 | CT ---
EXAMINATION TYPE: CT brain wo con DATE OF EXAM: 12/08/2017 COMPARISON: None HISTORY: AMS CT DLP: 986.50 mGycm Automated exposure control for dose reduction was used. Helical imaging through the brain. FINDINGS: There is no hemorrhage or hydrocephalus. Cerebral vascular calcifications are present. Periventricula r white matter shows patchy low attenuation. Cortical atrophy is likely age-related. Calvarium is int act. Paranasal sinuses are well aerated, some mild mucosal disease present in the maxillary sinus. In flammatory changes are present in the bilateral mastoid air cells. IMPRESSION: AGE-RELATED CHANGES OF ATROPHY AND PROBABLE CHRONIC SMALL VESSEL ISCHEMIA, CONSIDER MRI FOLLOW-UP INDICATED. INFLAMMATORY CHANGES MASTOID AIR CELLS, MAXILLARY SINUSES.
[2017-12-08] MEDS ORDERED: LORazepam 2 MG/ML INJ IV STA (14:45)
[2017-12-08] MEDS ORDERED: NALOXONE 0.4 MG/ML 1 ML VIAL IV PRN (15:05)
[2017-12-08] MEDS ORDERED: HYDROcodone/APAP 7.5-325MG 1 EACH TAB PO PRN (15:07)
[2017-12-08] MEDS ORDERED: PIPERACILLIN-TAZOBACTAM 3.375 GM VIAL IVPB SCH (15:15)
[2017-12-08] MEDS: PIPERACILLIN-TAZOBACTAM 3.375 GM in DEXTROSE/WATER 1 50ML.BAG IVPB SCH (16:09)
[2017-12-08 19:53] LABS: Glucose,Whole Blood 121 mg/dL (75-99)
[2017-12-08] MEDS: REPAGLINIDE 1 MG TAB PO SCH (19:53)
[2017-12-08] MEDS ORDERED: LORazepam 2 MG/ML INJ IV PRN (20:34)
[2017-12-08] MEDS: APIXABAN 5 MG TAB PO SCH (20:35)
[2017-12-08] MEDS: METOPROLOL TARTRATE 25 MG TAB PO SCH (20:36)
[2017-12-08] MEDS ORDERED: ATORVASTATIN 20 MG TAB PO SCH (21:00)
[2017-12-08] MEDS ORDERED: DIAZEPAM 5 MG TAB PO SCH (21:00)
[2017-12-08] MEDS ORDERED: INSULIN DETEMIR 100 UNIT/ML 10 ML VIAL SQ SCH (21:00)
--- NOTE | 2017-12-08 21:40 | P.CNNES ---
History of Present Illness Consult date: 12/08/17 History of Present Illness: The patient is a 62-year-old man history of chronic wound infection who has been having decline over the last several weeks according to family. Apparently the patient has been more lethargic and has had increased confusion and has had some difficulty with swallowing and speech over the last several weeks. He was brought into the emergency room on December 08 with the above symptoms. History is obtained primarily from the chart. The patient has difficulty expressing himself due to dysarthria. He does have a history of paraplegia due to spinal injury after laminectomy in 2015. Patient is bedridden and has wounds to the coccyx and gluteal region. Patient was admitted to the hospital with delirium due to general medical condition and altered mental status. Neurology was requested to see the patient for altered mental status. Review of Systems ROS unobtainable: due to mental status Past Medical History Past Medical History: Diabetes Mellitus, Deep Vein Thrombosis (DVT), GERD/Reflux , Hyperlipidemia, Hypertension, Prostate Disorder Additional Past Medical History / Comment(s): DVT BILAT LEGS, anxiety/depression ,picc line lt arm, past uti-ecoli,. PT IS BED RIDDEN-WOUNDS TO COCCYX AND BUTTOCKS WITH TUNNELLING.[facility]. PARALIZED WAIST DOWN SINCE LAMINECTOMY FEB 15, 2017; has wound vac; sup pubic cath(changed last 11-29-17) History of Any Multi-Drug Resistant Organisms: MRSA, VRE Date of last positivie culture/infection: 07/28/17 VRE & MRSA MDRO Source:: Coccyx Past Surgical History: Back Surgery, Bowel Resection, Coronary Bypass/CABG, Heart Catheterization Additional Past Surgical History / Comment(s): LAMINECTOMY 02/15/17. COLONOSCOPY. COLOSTOMY. SUp PUBIC CATH. BACK SX X 4 Past Anesthesia/Blood Transfusion Reactions: Previous Problems w/ Anesthesia Additional Past Anesthesia/Blood Transfusion Reaction / Comment(s): SLOW TO COME OUT OF ANESTHESIA AFTER LAST PROCEDURE Smoking Status: Former smoker - Past Family History Brother(s) Family Medical History: Cancer Mother Additional Family Medical History / Comment(s): emphysema Father Additional Family Medical History / Comment(s): emphysema Medications and Allergies Home Medications Medication Instructions Recorded Confirmed Type Diltiazem Cd [Cardizem Cd] 120 mg PO DAILY 09/21/16 12/08/17 History Metoprolol Tartrate [Lopressor] 25 mg PO BID 09/21/16 12/08/17 History Apixaban [Eliquis] 5 mg PO BID 07/27/17 12/08/17 History Atorvastatin [Lipitor] 20 mg PO HS 07/27/17 12/08/17 History Finasteride [Proscar] 5 mg PO DAILY 07/27/17 12/08/17 History HYDROcodone/APAP 7.5-325MG [[place] 1 tab PO Q6HR PRN 07/27/17 12/08/17 History 7.5-325] Insulin Glargine [Lantus] 40 unit SQ HS 07/27/17 12/08/17 History Loratadine [Claritin] 10 mg PO DAILY 07/27/17 12/08/17 History Multivitamins, Thera [Multivitamin 1 tab PO DAILY 07/27/17 12/08/17 History (formulary)] Ferrous Sulfate [Feosol] 325 mg PO DAILY 10/03/17 12/08/17 History Lisinopril [Prinivil] 5 mg PO DAILY 10/03/17 12/08/17 History Pantoprazole Sodium 40 mg PO DAILY 10/03/17 12/08/17 History Pravastatin Sodium [Pravachol] 20 mg PO DAILY 10/03/17 12/08/17 History Repaglinide [Prandin] 2 mg PO AC-TID 10/03/17 12/08/17 History Zinc 25 mg PO DAILY 10/03/17 12/08/17 History amLODIPine [Norvasc] 5 mg PO DAILY 10/03/17 12/08/17 History Piperacillin-Tazobactam [Zosyn] 3.375 gm IVPB Q6H 10/06/17 12/08/17 History Diazepam [Valium] 5 - 10 mg PO HS 11/17/17 12/08/17 History Allergies Allergy/AdvReac Type Severity Reaction Status Date / Time No Known Allergies Allergy Verified 12/08/17 10:36 Physical Examination - Vital Signs Vital Signs: Vital Signs Temp Pulse Pulse Resp BP BP Pulse Ox 12/08/17 19:12 97.3 F L 90 18 171/88 95 12/08/17 18:00 97.5 F L 78 18 158/66 98 12/08/17 17:00 97.5 F L 70 18 150/70 97 12/08/17 16:00 97.5 F L 68 18 162/84 97 12/08/17 15:30 73 18 177/86 99 12/08/17 12:00 69 18 165/77 97 12/08/17 10:07 97.7 F 62 20 150/76 96 Intake and Output 12/08/17 12/08/17 12/08/17 06:59 14:59 22:59 Other: Weight 96.615 kg - Constitutional General appearance: average body habitus - EENT EENT: PERRL, hearing intact, vision intact - Respiratory Respiratory: rhonchi - Cardiovascular Cardiovascular: regular rate, normal S1, normal S2 - Neurologic Neurologic examination: Mental status the patient had some difficulty with verbal expression due to severe dysarthria. He did follow commands appropriately. To speak and answer questions however his speech was quite hypophonic and dysarthric. Cranial nerve examination also 2 mm and equal there was no ptosis visual smyth were full extraocular movements are intact there was no nystagmus no facial asymmetry he was able to protrude tongue which seemed to protrude to the right. Motor examination there was a flaccid paralysis in the lower extremities. Upper extremity strength he was able to lift both arms up against gravity next Coordination he was able to do finger to nose testing but slowly next Sensory examination was intact to light touch in the upper extremities Results - Laboratory Findings CBC and BMP: 12/08/17 10:30 12/08/17 10:30 Abnormal Lab Findings: Abnormal Labs 12/08/17 12/08/17 12/08/17 10:25 10:30 10:30 RBC 4.00 L Hgb 11.2 L Hct 34.5 L RDW 17.9 H Lymphocytes # 0.9 L INR Chloride Glucose POC Glucose (mg/dL) Total Creatine Kinase 53 L Albumin Urine Protein 1+ H Urine Glucose (UA) Trace H Urine Ketones 2+ H Urine Blood Moderate H Ur Leukocyte Esterase Small H Urine RBC 36 H Urine WBC 12 H Calcium Oxalate Crystal Occasional H Urine Mucus Rare H U Tricyclic Antidepress Detected H U Benzodiazepines Scrn Detected H 12/08/17 12/08/17 12/08/17 10:30 10:30 19:51 RBC Hgb Hct RDW Lymphocytes # INR 1.2 H Chloride 109 H Glucose 118 H POC Glucose (mg/dL) 121 H Total Creatine Kinase Albumin 3.3 L Urine Protein Urine Glucose (UA) Urine Ketones Urine Blood Ur Leukocyte Esterase Urine RBC Urine WBC Calcium Oxalate Crystal Urine Mucus U Tricyclic Antidepress U Benzodiazepines Scrn Assessment and Plan (1) Severe dysarthria Current Visit: Yes Status: Acute SNOMED Code(s): 5161903 (2) Dysphagia Current Visit: Yes Status: Acute SNOMED Code(s): 91841567 (3) Altered mental status Current Visit: Yes Status: Acute Code(s): R41.82 - ALTERED MENTAL STATUS, UNSPECIFIED SNOMED Code(s): 823014322 Plan: The patient is a 62-year-old man who is receiving IV antibiotics through a PICC line for wounds and is followed in the wound clinic for chronic wound care. He is bedridden and has paraplegia. Today and is brought to the hospital due to altered mental status and some speech disturbance and swallowing difficulty. Her logic examination he has severe dysarthria and dysphagia. The patient had a CT of the brain which showed age-related atrophy and chronic small vessel ischemia. The patient does not seem to be having any delirium at present. His dysarthria and dysphagia may be secondary to brainstem stroke . If possible we can do further investigation with MRI of the brain, for better visualization of the brainstem. Also we'll check a myasthenia gravis panel. The patient will have a swallow evaluation.
[2017-12-09] MEDS: SODIUM CHLORIDE 0.9% 1,000 ML IV SCH ×4 (00:19→15:08)
[2017-12-09] MEDS: PIPERACILLIN-TAZOBACTAM 3.375 GM in DEXTROSE/WATER 1 50ML.BAG IVPB SCH ×4 (00:45→23:27)
[2017-12-09 07:09] LABS: Glucose,Whole Blood 97 mg/dL (75-99)
[2017-12-09] MEDS ORDERED: PANTOPRAZOLE 40 MG TABLET PO SCH (07:30)
[2017-12-09] MEDS: APIXABAN 5 MG TAB PO SCH (08:51)
[2017-12-09] MEDS: REPAGLINIDE 1 MG TAB PO SCH ×2 (08:51→12:25)
[2017-12-09] MEDS: METOPROLOL TARTRATE 25 MG TAB PO SCH (08:52)
[2017-12-09] MEDS: ZINC SULFATE 220 MG CAP PO SCH (08:52)
[2017-12-09] MEDS ORDERED: PRAVASTATIN SODIUM 20 MG TAB PO SCH (09:00)
[2017-12-09] MEDS ORDERED: amLODIPine 5 MG TAB PO SCH (09:00)
[2017-12-09] MEDS ORDERED: DILTIAZEM CD 120 MG CAP.ER.24H PO SCH (09:00)
[2017-12-09] MEDS ORDERED: FERROUS SULFATE 325 MG TAB PO SCH (09:00)
[2017-12-09] MEDS ORDERED: LISINOPRIL 5 MG TAB PO SCH (09:00)
[2017-12-09] MEDS ORDERED: LORATADINE 10 MG TAB PO SCH (09:00)
[2017-12-09] MEDS ORDERED: FINASTERIDE 5 MG TAB PO SCH (09:00)
[2017-12-09] MEDS ORDERED: MULTIVITAMINS, THERA 1 EACH TAB PO SCH (12:00)
--- NOTE | 2017-12-09 13:22 | P.HPIM ---
History of Present Illness H&P Date: 12/09/17 Chief Complaint: Dysarthria, dysphagia, and anorexia This is a pleasant 62-year-old white male patient with diabetes. He underwent his fourth lumbar surgical repair in February 2017. He was debilitated due to his surgery and developed paralysis and paraplegia. During his disability at [facility], he developed a pressure ulcer to coccyx. This wound had worsened. He has been in and out of the hospital several times for cellulitis with abscess to the area. He's been debrided and followed by Dr. Rivas and Dr. Solomon previously. He's been treated with Santyl, Dakin's, and most recently with [facility] to the wound. He's had a wound VAC several times. He was brought in today via ambulance as he is unable to support himself in a wheelchair. He's been unable to participate in any physical therapy due to his wound. He already had a suprapubic catheter and a colostomy to keep the wound clean during an admission to [facility]. He's been on several rounds of antibiotics for UTIs, but has no recollection of being treated for the wound or a wound infection with antibiotics. Once home, in [place], [facility] referred him to us here at the wound center. His Primary care physician is Dr. Acosta. He has been treated in the [facility] since 07/28/2017. He was started in hyperbaric oxygen treatment and has been applying collagen silver to his wound recently. He is transported daily, Tuesday through Tuesday, by EMS. His at yesterday's wound care center visit, mentions he's been increasingly confused, trouble speaking, has not ate or drank anything in the past 24 hours. EMS confirm that over the past week his mentation and speech has become more more garbled and he has been more confused and combative. After briefly seeing him in the wound center, I sent him to the emergency room for further workup. He is now inpatient for further treatment. Review of Systems ROS unobtainable: due to mental status (His history is primarily obtained from his , and my knowledge of the patient directly.) Past Medical History Past Medical History: Diabetes Mellitus, Deep Vein Thrombosis (DVT), GERD/Reflux , Hyperlipidemia, Hypertension, Prostate Disorder Additional Past Medical History / Comment(s): DVT B/L LE, anxiety/depression, picc line lt arm. Paraplegia SINCE LAMINECTOMY FEB 15, 2017 History of Any Multi-Drug Resistant Organisms: MRSA, VRE Date of last positivie culture/infection: 07/28/17 VRE & MRSA MDRO Source:: Coccyx Past Surgical History: Back Surgery, Bowel Resection, Coronary Bypass/CABG, Heart Catheterization Additional Past Surgical History / Comment(s): LAMINECTOMY 02/15/17. COLONOSCOPY. COLOSTOMY. SUp PUBIC CATH (changed last 11-29-17). BACK SX X 4. PICC Line Past Anesthesia/Blood Transfusion Reactions: Previous Problems w/ Anesthesia Additional Past Anesthesia/Blood Transfusion Reaction / Comment(s): SLOW TO COME OUT OF ANESTHESIA AFTER LAST PROCEDURE Smoking Status: Former smoker - Past Family History Brother(s) Family Medical History: Cancer Mother Additional Family Medical History / Comment(s): emphysema Father Additional Family Medical History / Comment(s): emphysema Medications and Allergies Home Medications Medication Instructions Recorded Confirmed Type Diltiazem Cd [Cardizem Cd] 120 mg PO DAILY 09/21/16 12/08/17 History Metoprolol Tartrate [Lopressor] 25 mg PO BID 09/21/16 12/08/17 History Apixaban [Eliquis] 5 mg PO BID 07/27/17 12/08/17 History Atorvastatin [Lipitor] 20 mg PO HS 07/27/17 12/08/17 History Finasteride [Proscar] 5 mg PO DAILY 07/27/17 12/08/17 History HYDROcodone/APAP 7.5-325MG [[place]cer 1 tab PO Q6HR PRN 07/27/17 12/08/17 History 7.5-325] Insulin Glargine [Lantus] 40 unit SQ HS 07/27/17 12/08/17 History Loratadine [Claritin] 10 mg PO DAILY 07/27/17 12/08/17 History Multivitamins, Thera [Multivitamin 1 tab PO DAILY 07/27/17 12/08/17 History (formulary)] Ferrous Sulfate [Feosol] 325 mg PO DAILY 10/03/17 12/08/17 History Lisinopril [Prinivil] 5 mg PO DAILY 10/03/17 12/08/17 History Pantoprazole Sodium 40 mg PO DAILY 10/03/17 12/08/17 History Repaglinide [Prandin] 2 mg PO AC-TID 10/03/17 12/08/17 History Zinc 25 mg PO DAILY 10/03/17 12/08/17 History amLODIPine [Norvasc] 5 mg PO DAILY 10/03/17 12/08/17 History Piperacillin-Tazobactam [Zosyn] 3.375 gm IVPB Q6H 10/06/17 12/08/17 History Diazepam [Valium] 5 - 10 mg PO HS 11/17/17 12/08/17 History Allergies Allergy/AdvReac Type Severity Reaction Status Date / Time No Known Allergies Allergy Verified 12/08/17 10:36 Physical Exam Vitals: Vital Signs Temp Pulse Pulse Resp BP BP Pulse Ox 12/09/17 06:38 96.4 F L 84 16 171/81 97 12/08/17 23:00 96.4 F L 96 16 140/77 97 12/08/17 19:12 97.3 F L 90 18 171/88 95 12/08/17 18:00 97.5 F L 78 18 158/66 98 12/08/17 17:00 97.5 F L 70 18 150/70 97 12/08/17 16:00 97.5 F L 68 18 162/84 97 12/08/17 15:30 73 18 177/86 99 Intake and Output 12/08/17 12/09/17 12/09/17 22:59 06:59 14:59 Intake Total 0 0 Balance 0 0 Intake: Oral 0 0 Other: Voiding Method Indwelling Catheter GENERAL: Confused, bedridden 62-year-old male who looks his stated age. His speech is unintelligible. His is at his bedside. HEAD: Atraumatic, normocephalic. EYES: Pupils equal round and reactive to light, extraocular movements intact, sclera anicteric, conjunctiva are normal. ENT:nares patent, oropharynx clear without exudates. Moist mucous membranes. NECK: Normal range of motion, supple without lymphadenopathy or JVD, no thyromegaly LUNGS: Breath sounds clear to auscultation bilaterally and equal. No wheezes rales or rhonchi. HEART: Regular rate and rhythm without murmurs, rubs or gallops.S1S2 Normal ABDOMEN: Soft, nontender, normoactive bowel sounds. No guarding, no rebound. No masses appreciated. Colostomy bag and suprapubic catheter both intact. There is some discharge around the suprapubic catheter. EXTREMITIES: Normal range of motion, no pitting or edema. No clubbing or cyanosis. There is some evident atrophy of the lower extremities at the foot and ankles NEUROLOGICAL: Cranial nerves II through XII only tested by observation. There is evident defect with tongue motion. Patient is not following commands. Patient is able to extend tongue, but not move it [id number]. Grasp strength with hands is 5 out of 5 bilaterally. No purposeful motion of the lower extremities. PSYCH: Normal mood, normal affect. SKIN: Warm, Dry, normal turgor, no rashes, he has a left coccygeal wound, see below: Wound Clinic Measurements Start: 08/11/17 10: 18 Freq: Status: Active Protocol: Document 12/08/17 09:15 CAN (Rec: 12/08/17 09:15 CAN [id number]) Wound Clinic Measurements Wound Information Left Coccyx Number 1 Current Wound Stage/Grade Stage IV Stage/Grade Change No Length/cm 11.7 Width/cm 1 Depth/cm (cm) 0.8 Clustered Wound/Ulcer Yes: 2 Tunneling No Query Text:*If yes, specify position:_o' clock Undermining No Epithelialization None Granulation Amount Large 67-100% Granulation Quality Red Necrosis Amount Small 1-33% Necrosis Type Adherent Slough Stucture Exposed None Limited to Skin Breakdown Results CBC & Chem 7: 12/08/17 10:30 12/08/17 10:30 Labs: Abnormal Lab Results - Last 24 Hours (Table) 12/08/17 Range/Units 19:51 POC Glucose (mg/dL) 121 H (75-99) mg/dL Microbiology - Last 24 Hours (Table) 12/08/17 10:30 Blood Culture - Preliminary Blood No Growth after [address] Scan - head: report reviewed Thrombosis Risk Factor Assmnt - DVT/VTE Prophylaxis DVT/VTE Prophylaxis: Pharmacologic Prophylaxis ordered - Choose All That Apply Any of the Below Risk Factors Present?: Yes Each Factor Represents 1 point: Obesity (BMI >25) Other Risk Factors: Yes Each Risk Factor Represents 2 Points: Age 61-74 years Each Risk Factor Represents 3 Points: History of DVT/PE Other congenital or acquired thrombophilia - If yes, enter type in comment: No Thrombosis Risk Factor Assessment Total Risk Factor Score: 6 Thrombosis Risk Factor Assessment Level: High Risk Assessment and Plan (1) Presence of suprapubic catheter Current Visit: Yes Status: Acute Code(s): Z93.59 - OTHER CYSTOSTOMY STATUS SNOMED Code(s): 936368155 (2) Colostomy in place Current Visit: Yes Status: Acute Code(s): Z93.3 - COLOSTOMY STATUS SNOMED Code(s): 342794192 (3) Neurogenic bladder Current Visit: Yes Status: Chronic Code(s): N31.9 - NEUROMUSCULAR DYSFUNCTION OF BLADDER, UNSPECIFIED SNOMED Code(s): 652254961 (4) Altered mental status Current Visit: Yes Status: Acute Code(s): R41.82 - ALTERED MENTAL STATUS, UNSPECIFIED SNOMED Code(s): 716681892 (5) Delirium due to general medical condition Current Visit: Yes Status: Acute Code(s): F05 - DELIRIUM DUE TO KNOWN PHYSIOLOGICAL CONDITION SNOMED Code(s): 7183917 (6) Dysphagia Current Visit: Yes Status: Acute Code(s): R13.10 - DYSPHAGIA, UNSPECIFIED SNOMED Code(s): 27834630 (7) Paraplegia Current Visit: No Status: Chronic Code(s): G82.20 - PARAPLEGIA, UNSPECIFIED SNOMED Code(s): 12401533 (8) Severe dysarthria Current Visit: Yes Status: Acute Code(s): R47.1 - DYSARTHRIA AND ANARTHRIA SNOMED Code(s): 8619340 (9) Osteomyelitis of lumbar spine Current Visit: No Status: Chronic Code(s): M46.26 - OSTEOMYELITIS OF VERTEBRA, LUMBAR REGION SNOMED Code(s): 921521204 (10) Pressure ulcer of coccygeal region, stage 4 Current Visit: No Status: Chronic Code(s): L89.154 - PRESSURE ULCER OF SACRAL REGION, STAGE 4 SNOMED Code(s): 505951433 Plan: Neurology consult has been reviewed. We will set him up for an MRI of the brain. Repeat labs in a.m. Reorder home meds with substituting IV forms if available. Will anticoagulate with Lovenox. We'll await further neurology recommendations. We'll reevaluate patient in the next 24 hours.
--- NOTE | 2017-12-09 14:03 | FL ---
EXAMINATION TYPE: FL barium swallow w video DATE OF EXAM: 12/09/2017 MODIFIED SWALLOW / DEGLUTITION STUDY CLINICAL HISTORY: Dysphagia. TECHNIQUE: Deglutition study is performed utilizing thin 1 ounce of honey thick barium. 43 seconds o f fluoroscopy was utilized. COMPARISON: None. FINDINGS: With a solitary swallow of 1 ounce of honey thick barium the oral and pharyngeal phases ebony w satisfactory initiation and propagation. There is no evidence of penetration or aspiration. No sig nificant pharyngeal residue was appreciated. The patient refused any further testing. IMPRESSION: No evidence of laryngeal penetration or aspiration with a solitary swallow utilizing veronica y thick barium. The patient refused any further examination. Please refer to speech therapist notes for further details if necessary.
[2017-12-09 14:24] LABS: Glucose,Whole Blood 109 mg/dL (75-99)
[2017-12-09] MEDS: PANTOPRAZOLE 40 MG/10 ML VIAL IVP SCH (15:02)
[2017-12-09] MEDS: ENOXAPARIN 100 MG/ML SYRINGE SQ SCH ×2 (15:02→21:37)
[2017-12-09] MEDS: ENALAPRILAT 1.25 MG/ML 1 ML VIAL IVP PRN (15:18)
[2017-12-09] MEDS ORDERED: LORazepam 2 MG/ML INJ IV STA (15:33)
[2017-12-09 17:09] LABS: Glucose,Whole Blood 104 mg/dL (75-99)
[2017-12-09] MEDS: INSULIN ASPART 100 UNIT/ML 1 ML 10 ML VIAL SQ SCH ×2 (17:41→21:37)
[2017-12-09] MEDS ORDERED: ZOLPIDEM 10 MG TAB PO PRN (20:01)
--- NOTE | 2017-12-09 20:44 | MR ---
EXAMINATION TYPE: MR brain wo/w con DATE OF EXAM: 12/09/2017 COMPARISON: None HISTORY: Dysarthria, dysphagia, AMS TECHNIQUE: Multiplanar, multisequence images of the brain and brainstem is performed without and with IV contras t, utilizing 9.5 mL intravenous Gadavist . FINDINGS: There is mild cerebral cortical atrophy. There is no mass effect nor midline shift. There i s no sign of intracranial hemorrhage. There is increased signal throughout the mastoid air cells on t he T2 images. The brainstem is intact. There is some linear increased signal in the periventricular w kaitlyn matter. There is no pathologic enhancement. There is normal contrast opacification of the venous sinuses. IMPRESSION: White matter increased signal is smooth and symmetric and linear adjacent to the lateral ventricles and could relate to CSF pulsation. Mild cerebral atrophy. No hydrocephalus. White matter d isease cannot be entirely excluded. Bilateral mastoiditis.
[2017-12-09 21:25] LABS: Glucose,Whole Blood 89 mg/dL (75-99)
[2017-12-09 22:02] LABS: Hemoglobin A1C 4.7 % (4.0-6.0)
--- NOTE | 2017-12-09 22:58 | P.PN ---
Subjective Progress Note Date: 12/09/17 The patient is a 62-year-old man history of multiple lumbar surgeries and recent paraplegia after surgery in February 2017. He has been disabled at the extended care facility for prolonged time and developed a wound ulcer. He is undergoing treatments with hyperbaric oxygen and has been treated at the wound center. For the last 2 weeks he is been having change in mentation and severe dysarthria and dysphagia. The patient is doing about the same. Had an MRI of the brain which shows a normal brainstem. There was some white matter increased signal and mild cerebral atrophy. The patient's reports that he has had episodes of delirium off and on for several months. There has however been a more acute change in his mentation over the last 2 weeks. Patient has had a normal chest x-ray. His oxygenation seems to be intact with a saturation of 99%. His been no complaints of shortness of breath. His is also noticed some recent changes in his strength in the arms. She states over the last several weeks he has been getting weaker in the arms. Objective - Vital Signs Vital signs: Vital Signs Temp 99.3 F 12/09/17 15:00 Pulse 89 12/09/17 15:00 Resp 18 12/09/17 21:11 BP 184/88 12/09/17 16:26 Pulse Ox 99 12/09/17 21:11 Intake & Output 12/09/17 12/09/17 12/10/17 06:59 18:59 06:59 Intake Total 0 Output Total 700 Balance 0 -700 Intake: Oral 0 Output: Urine 600 Stool 100 Other: Voiding Method Indwelling Catheter Indwelling Catheter Indwelling Catheter - Constitutional General appearance: Present: average body habitus - EENT Eyes: Present: PERRLA ENT: Present: hearing grossly normal - Respiratory Respiratory: bilateral: rales - Cardiovascular Rhythm: regular - Neurologic Neurologic Comment(s): Her logic examination: Mental status patient attempted to speak but his speech is so hypophonic it was difficult to understand. He did not yes and no and seem to appropriately follow simple commands. Cranial nerve examination : Pupils were equal and reactive there was no ptosis , he was able to smile there was no facial asymmetry and he was able to protrude his tongue slightly Motor examination: He has paraplegia. He was able to lift both arms up against gravity but was not able to sustain his arms up for more than 10 seconds without showing a drift bilaterally. His hand store specialist were good but not sustainable - Labs CBC & Chem 7: 12/08/17 10:30 12/08/17 10:30 Labs: Abnormal Lab Results - Last 24 Hours (Table) 12/09/17 12/09/17 Range/Units 14:21 17:06 POC Glucose (mg/dL) 109 H 104 H (75-99) mg/dL Microbiology - Last 24 Hours (Table) 12/08/17 10:30 Blood Culture - Preliminary Blood No Growth after 24 hours Assessment and Plan (1) Severe dysarthria Current Visit: Yes Status: Acute SNOMED Code(s): 7307579 (2) Dysphagia Current Visit: Yes Status: Acute SNOMED Code(s): 55281942 (3) Altered mental status Current Visit: Yes Status: Acute Code(s): R41.82 - ALTERED MENTAL STATUS, UNSPECIFIED SNOMED Code(s): 440861147 Plan: The patient is a 62-year-old man with history of chronic wound infection who presents with severe dysarthria and dysphagia and change in mental status. This appears to be subacute onset over a period of 2 weeks. The differential diagnosis includes musk antibody myasthenia gravis or Aviles Mccormick variant. Myasthenia panel has been sent and is still pending. Recommend transfer to tertiary center for comprehensive and neuro intensive care. Discussed with patient's who is agreeable.
[2017-12-10] MEDS: SODIUM CHLORIDE 0.9% 1,000 ML IV SCH (06:10)
[2017-12-10 07:25] LABS: Glucose,Whole Blood 80 mg/dL (75-99)
[2017-12-10] MEDS: INSULIN ASPART 100 UNIT/ML 1 ML 10 ML VIAL SQ SCH (07:56)
[2017-12-10] MEDS: ZINC SULFATE 220 MG CAP PO SCH (07:56)
[2017-12-10] MEDS: PANTOPRAZOLE 40 MG/10 ML VIAL IVP SCH (08:00)
[2017-12-10] MEDS: PIPERACILLIN-TAZOBACTAM 3.375 GM in DEXTROSE/WATER 1 50ML.BAG IVPB SCH (08:00)
[2017-12-10] MEDS: ENALAPRILAT 1.25 MG/ML 1 ML VIAL IVP PRN (08:00)
[2017-12-10] MEDS: ENOXAPARIN 100 MG/ML SYRINGE SQ SCH (08:00)
[2017-12-10 08:38] VITALS: RESP 18; TEMP 96.3
[2017-12-10 09:41] LABS: Glucose,Whole Blood 84 mg/dL (75-99)
[2017-12-10 09:43] VITALS: BP 180/91; PULSE 91
--- NOTE | 2017-12-10 10:37 | P.DS ---
Providers Date of admission: 12/08/17 15:09 Expected date of discharge: 12/10/17 Attending physician: Gilmer Lopez Consults: 12/08/17 15:06 Consult Physician Routine Consulting Provider: David Ness Consult Reason/Comments: Altered mental status, speech difficulty Do you want consulting provider notified?: Yes Primary care physician: Gilmer Lopez - Discharge Diagnosis(es) (1) Presence of suprapubic catheter Status: Acute (2) Colostomy in place Status: Acute (3) Neurogenic bladder Status: Chronic (4) Altered mental status Status: Acute (5) Delirium due to general medical condition Status: Acute (6) Dysphagia Status: Acute (7) Paraplegia Status: Chronic (8) Severe dysarthria Status: Acute (9) Osteomyelitis of lumbar spine Status: Chronic (10) Pressure ulcer of coccygeal region, stage 4 Status: Chronic Hospital Course: This is a pleasant 62-year-old white male patient with diabetes. He underwent his fourth lumbar surgical repair in February 2017. He was debilitated due to his surgery and developed paralysis and paraplegia. During his disability at [facility], he developed a pressure ulcer to coccyx. This wound had worsened. He has been in and out of the hospital several times for cellulitis with abscess to the area. He's been debrided and followed by Dr. Rivas and Dr. Solomon previously. He's been treated with Santyl, Dakin's, and most recently with [facility] to the wound. He's had a wound VAC several times. He was brought in today via ambulance as he is unable to support himself in a wheelchair. He's been unable to participate in any physical therapy due to his wound. He already had a suprapubic catheter and a colostomy to keep the wound clean during an admission to [facility]. He's been on several rounds of antibiotics for UTIs, but has no recollection of being treated for the wound or a wound infection with antibiotics. Once home, in [place], [facility] referred him to us here at the wound center. His Primary care physician is Dr. Acosta. He has been treated in the [facility] since 07/28/2017. He was started in hyperbaric oxygen treatment and has been applying collagen silver to his wound recently. He is transported daily, Tuesday through Tuesday, by EMS. His at yesterday's wound care center visit, mentions he's been increasingly confused, trouble speaking, has not ate or drank anything in the past 24 hours. EMS confirm that over the past week his mentation and speech has become more more garbled and he has been more confused and combative. After briefly seeing him in the wound center, I sent him to the emergency room for further workup. He is now inpatient for further treatment. Hospital workup including CT and MRI of the Brain has bee Negative. No evidence of infection. Swallow study was failed and his conditoin remaind poor. He has not required intubation. Neurology is concerned about Myathenia Gravis and Requested Transfer to a tertiary care center. They have seen him twice. I discussed this with his and made arrangements for Prashant to go to [facility]Stepdown. Patient Condition at Discharge: Poor Plan - Discharge Summary Discharge Rx Participant: Yes New Discharge Prescriptions: No Action Diltiazem Cd [Cardizem Cd] 120 mg PO DAILY Metoprolol Tartrate [Lopressor] 25 mg PO BID Loratadine [Claritin] 10 mg PO DAILY Insulin Glargine [Lantus] 40 unit SQ HS HYDROcodone/APAP 7.5-325MG [[place] 7.5-325] 1 tab PO Q6HR PRN PRN Reason: Pain Finasteride [Proscar] 5 mg PO DAILY Atorvastatin [Lipitor] 20 mg PO HS Apixaban [Eliquis] 5 mg PO BID Multivitamins, Thera [Multivitamin (formulary)] 1 tab PO DAILY Ferrous Sulfate [Feosol] 325 mg PO DAILY amLODIPine [Norvasc] 5 mg PO DAILY Zinc 25 mg PO DAILY Repaglinide [Prandin] 2 mg PO AC-TID Pantoprazole Sodium 40 mg PO DAILY Lisinopril [Prinivil] 5 mg PO DAILY Piperacillin-Tazobactam [Zosyn] 3.375 gm IVPB Q6H Diazepam [Valium] 5 - 10 mg PO HS Discharge Medication List Diltiazem Cd [Cardizem Cd] 120 mg PO DAILY 09/21/16 [History] Metoprolol Tartrate [Lopressor] 25 mg PO BID 09/21/16 [History] Apixaban [Eliquis] 5 mg PO BID 07/27/17 [History] Atorvastatin [Lipitor] 20 mg PO HS 07/27/17 [History] Finasteride [Proscar] 5 mg PO DAILY 07/27/17 [History] HYDROcodone/APAP 7.5-325MG [[place] 7.5-325] 1 tab PO Q6HR PRN 07/27/17 [History] Insulin Glargine [Lantus] 40 unit SQ HS 07/27/17 [History] Loratadine [Claritin] 10 mg PO DAILY 07/27/17 [History] Multivitamins, Thera [Multivitamin (formulary)] 1 tab PO DAILY 07/27/17 [History ] Ferrous Sulfate [Feosol] 325 mg PO DAILY 10/03/17 [History] Lisinopril [Prinivil] 5 mg PO DAILY 10/03/17 [History] Pantoprazole Sodium 40 mg PO DAILY 10/03/17 [History] Repaglinide [Prandin] 2 mg PO AC-TID 10/03/17 [History] Zinc 25 mg PO DAILY 10/03/17 [History] amLODIPine [Norvasc] 5 mg PO DAILY 10/03/17 [History] Piperacillin-Tazobactam [Zosyn] 3.375 gm IVPB Q6H 10/06/17 [History] Diazepam [Valium] 5 - 10 mg PO HS 11/17/17 [History] Follow up Appointment(s)/Referral(s): [facility], [NON-STAFF] - Gilmer Lopez MD [Primary Care Provider] - 1-2 days Activity/Diet/Wound Care/Special Instructions: [facility] will be needed for transport home. Discharge Disposition: OTHER INSTITUTION NOT DEFINED
== END 2017-12-10 10:15 | disposition short-term general hospital (02) | DRG 91 ==
LOC: EC 10:05 → 4MS4W 15:09
PROVIDERS: ADMIT Family Medicine; ATTEND Family Medicine
DX: R47.1 Dysarthria and anarthria (principal); L89.154 Pressure ulcer of sacral region, stage 4; F05 Delirium due to known physiological condition; G82.20 Paraplegia, unspecified; M46.26 Osteomyelitis of vertebra, lumbar region; E11.69 Type 2 diabetes mellitus with other specified complication; N31.9 Neuromuscular dysfunction of bladder, unspecified; R13.10 Dysphagia, unspecified; K21.9 Gastro-esophageal reflux disease without esophagitis; E78.5 Hyperlipidemia, unspecified; F32.9 Major depressive disorder, single episode, unspecified; F41.9 Anxiety disorder, unspecified; N42.9 Disorder of prostate, unspecified; I10 Essential (primary) hypertension; Z79.01 Long term (current) use of anticoagulants; Z79.4 Long term (current) use of insulin; Z79.2 Long term (current) use of antibiotics; Z79.899 Other long term (current) drug therapy; Z86.718 Personal history of other venous thrombosis and embolism; Z74.01 Bed confinement status; Z86.19 Personal history of other infectious and parasitic diseases; Z95.1 Presence of aortocoronary bypass graft; Z93.3 Colostomy status; Z93.59 Other cystostomy status; Z87.891 Personal history of nicotine dependence; Z80.9 Family history of malignant neoplasm, unspecified; Z82.5 Family history of asthma and other chronic lower respiratory diseases; Z87.440 Personal history of urinary (tract) infections
CPT/HCPCS: 36415; 70450; 70553; 71046; 74230; 80053; 80306; 81001; 82140; 82550; 82553; 83036; 83519; 83735; 84484; 85025; 85610; 85730; 86255; 87040; 93005; 96361; 96365; 96366; 96375; 99285

== ENCOUNTER 2018-01-02 12:07 | Emergency (ER) | payer BC ==
[2018-01-02 12:34] VITALS: RESP 16
--- NOTE | 2018-01-02 14:13 | CT ---
EXAMINATION TYPE: CT brain andrés valiente con DATE OF EXAM: 01/02/2018 COMPARISON: 12/08/2017 HISTORY: 62-year-old male Patient poor historian. Fall. Pain. CT DLP: 1921.5 mGycm Automated exposure control for dose reduction was used. Technique: Examination of the head was done in axial plane without intravenous contrast. Coronal and sagittal reconstructions performed. CT of the cervical spine was obtained in axial plane without intravenous injection of contrast mater ial. Coronal and sagittal reformatted images were obtained from the axial views for evaluation of f ractures, spinal alignment and canal. FINDINGS: Head: There is no evidence of acute intracranial hemorrhage, acute ischemic changes, mass, mass-effect, or extra-axial fluid collection. There is no effacement of cerebral sulci or basal subarachnoid cister ns. There is no hydrocephalus. There is no midline shift. Weaver-white matter distinction is preserv ed. Layering fluid in the left mastoid air cells. Trace mucosal thickening posterior right maxillary sinu s. Orbital globes are intact. No calvarial fracture. Cervical spine: No craniocervical junction abnormality, predental space widening, or prevertebral soft tissue swellin g. 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 Heterotopic ossification posterior midline costa cent to the C5 spinous process. Hypertrophic facet arthropathy lower cervical spine and upper thoraci c spine. The OPLL contributes to moderate multilevel spinal canal stenosis. There is variable mild to moderate neural foraminal stenosis throughout. No acute fracture of the cervical spine. Sagittal and coronal reformatted images confirm above findings. COMBINED IMPRESSION: 1. No acute intracranial abnormality seen. 2. No acute fracture or malalignment of the cervical spine. 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 Variable moderate spinal canal stenos es throughout. 3. Layering fluid in the left mastoid air cells. Correlate for any mastoid pain to exclude mastoiditi s.
--- NOTE | 2018-01-02 14:42 | ED ---
General Adult HPI - General Chief complaint: Fall Stated complaint: Fall Time Seen by Provider: 01/02/18 12:33 Source: family, EMS, RN notes reviewed Mode of arrival: EMS Limitations: language barrier, physical limitation - History of Present Illness Initial comments: 62-year-old male with a past medical history of paraplegia, diabetes, hyperlipidemia hypertension presents to the emergency department for a chief complaint of fall occurring about one hour prior to arrival. Apparently patient fell out of the hospital bed onto the floor. Patient is currently on Eliquis. Patient did hit his head. Patient did not lose consciousness. Daughter was unable to get the patient off the floor and back into bed so called EMS. Patient does not have any rotation in his lower extremities. Patient denies upper extremity pain. Patient denies head or neck pain at this time. Patient does have stage IV cubitus ulcers which he is currently seeing wound care for.Patient has no other complaints at this time including shortness of breath, chest pain, abdominal pain, nausea or vomiting, headache, or visual changes. - Related Data Home Medications Medication Instructions Recorded Confirmed Diltiazem Cd [Cardizem Cd] 120 mg PO DAILY 09/21/16 01/02/18 Metoprolol Tartrate [Lopressor] 25 mg PO BID 09/21/16 01/02/18 Apixaban [Eliquis] 5 mg PO BID 07/27/17 01/02/18 Atorvastatin [Lipitor] 20 mg PO HS 07/27/17 01/02/18 Finasteride [Proscar] 5 mg PO DAILY 07/27/17 01/02/18 HYDROcodone/APAP 7.5-325MG [[place] 1 tab PO Q6HR PRN 07/27/17 01/02/18 7.5-325] Insulin Glargine [Lantus] 40 unit SQ HS 07/27/17 01/02/18 Loratadine [Claritin] 10 mg PO DAILY 07/27/17 01/02/18 Multivitamins, Thera [Multivitamin 1 tab PO DAILY 07/27/17 01/02/18 (formulary)] Ferrous Sulfate [Feosol] 325 mg PO DAILY 10/03/17 01/02/18 Lisinopril [Prinivil] 5 mg PO DAILY 10/03/17 01/02/18 Pantoprazole Sodium 40 mg PO DAILY 10/03/17 01/02/18 Repaglinide [Prandin] 2 mg PO AC-TID 10/03/17 01/02/18 Zinc 25 mg PO DAILY 10/03/17 01/02/18 amLODIPine [Norvasc] 5 mg PO DAILY 10/03/17 01/02/18 Diazepam [Valium] 5 - 10 mg PO HS 11/17/17 01/02/18 Allergies Allergy/AdvReac Type Severity Reaction Status Date / Time No Known Allergies Allergy Verified 01/02/18 12:39 Review of Systems ROS Statement: Those systems with pertinent positive or pertinent negative responses have been documented in the HPI. ROS Other: All systems not noted in ROS Statement are negative. Past Medical History Past Medical History: Diabetes Mellitus, Deep Vein Thrombosis (DVT), GERD/Reflux , Hyperlipidemia, Hypertension, Prostate Disorder Additional Past Medical History / Comment(s): DVT B/L LE, anxiety/depression, picc line lt arm. Paraplegia SINCE LAMINECTOMY FEB 15, 2017PARALIZED WAIST DOWN SINCE LAMINECTOMY FEB 15, 2017; has wound vac; History of Any Multi-Drug Resistant Organisms: MRSA, VRE Date of last positivie culture/infection: 07/28/17 VRE & MRSA MDRO Source:: Coccyx Past Surgical History: Back Surgery, Bowel Resection, Coronary Bypass/CABG, Heart Catheterization Additional Past Surgical History / Comment(s): LAMINECTOMY 02/15/17. COLONOSCOPY. COLOSTOMY. SUp PUBIC CATH (changed last 11-29-17). BACK SX X 4. PICC Line Past Anesthesia/Blood Transfusion Reactions: Previous Problems w/ Anesthesia Additional Past Anesthesia/Blood Transfusion Reaction / Comment(s): SLOW TO COME OUT OF ANESTHESIA AFTER LAST PROCEDURE Past Psychological History: Anxiety, Depression Smoking Status: Former smoker - Past Family History Brother(s) Family Medical History: Cancer Mother Additional Family Medical History / Comment(s): emphysema Father Additional Family Medical History / Comment(s): emphysema General Exam Limitations: language barrier, physical limitation General appearance: alert, in no apparent distress Head exam: Present: atraumatic, normocephalic, normal inspection Eye exam: Present: normal appearance, PERRL, EOMI. Absent: scleral icterus, conjunctival injection, periorbital swelling ENT exam: Present: normal exam, mucous membranes moist Neck exam: Present: normal inspection, full ROM. Absent: tenderness, meningismus, lymphadenopathy Respiratory exam: Present: normal lung sounds bilaterally. Absent: respiratory distress, wheezes, rales, rhonchi, stridor Cardiovascular Exam: Present: regular rate, normal rhythm, normal heart sounds. Absent: systolic murmur, diastolic murmur, rubs, gallop, clicks GI/Abdominal exam: Present: soft, normal bowel sounds. Absent: distended, tenderness, guarding, rebound, rigid Extremities exam: Present: normal capillary refill (Capillary refill less than 2 seconds in all extremities.), other (Patient does have abrasion noted to the left kaufman. No other signs of trauma, ecchymosis, erythema noted in extremities. ). Absent: full ROM (Patient has full range of motion of upper extremities. He is paraplegic and cannot move lower extremities.) Back exam: Present: tenderness (Patient does have thoracic spine tenderness, no lumbar tenderness.) Neurological exam: Present: alert, oriented X3, CN II-XII intact Psychiatric exam: Present: normal affect, normal mood Course Vital Signs 01/02/18 01/02/18 12:22 15:35 Temperature 96.9 F L 96.1 F L Pulse Rate 75 100 Respiratory 16 16 Rate Blood Pressure 128/77 121/81 O2 Sat by Pulse 99 98 Oximetry Medical Decision Making - Medical Decision Making 42-year-old male with a past medical history of paraplegia presents to the emergency department for chief complaint of fall out of bed about one hour prior to arrival. Patient does have a small abrasion noted on the left tib- fib. No other obvious injuries. X-ray shows No acute osseous abnormalities in the femurs or bilateral tibias. There is a large area of focal soft tissue protuberance along the medial aspect of the right mid leg which daughter states has been chronic. Lumbar and thoracic spine x-rays without vertebral compression claps or malalignment seen. There is extensive bridging endplate spondylolysis throughout and additional extensive laminectomy changes. Chest x- ray shows no acute cardiopulmonary process. CT brain shows no acute intracranial abnormality seen. No acute fracture or malalignment of the cervical spine. Patient was given pain medication here in the emergency department. At this time it is felt the patient can go home and follow-up with primary care in 1-2 days. If he has any worsening symptoms or headache he will return to the emergency department. He denies headache at this time. Disposition Clinical Impression: Fall Disposition: HOME SELF-CARE Condition: Good Instructions: Head Injury (ED) Additional Instructions: Please continue pain medication regimen at home. Please follow up with primary care in 1-2 days. Please return to the emergency department if you have any worsening symptoms. Is patient prescribed a controlled substance at d/c from ED?: No Referrals: Gilmer Lopez MD [Primary Care Provider] - 1-2 days Time of Disposition: 16:38
--- NOTE | 2018-01-02 15:05 | XR ---
EXAMINATION TYPE: XR chest 2V DATE OF EXAM: 01/02/2018 COMPARISON: 12/08/2017 HISTORY: Shortness of breath TECHNIQUE: Frontal and lateral views of the chest are obtained. FINDINGS: Scattered senescent parenchymal changes noted. No evidence for infiltrate. No evidence for atelectasis. Heart size is stable. Mediastinal structures are stable and grossly unremarkable. No evidence for hilar prominence. Degenerative changes dorsal spine. IMPRESSION: 1. No evidence for acute pulmonary disease.
--- NOTE | 2018-01-02 15:06 | XR ---
EXAMINATION TYPE: XR thoracic spine 2V, XR lumbar spine 2 or 3V DATE OF EXAM: 01/02/2018 COMPARISON: NONE HISTORY: 62-year-old male pain after falling out of bed today FINDINGS: Thoracic spine: Median sternotomy wires and post-CABG clips. A PEG tube is present. 12 rib bearing thoracic vertebral bodies. Bridging anterior endplate and some lateral endplate spondylosis suggesting dish. Overall ve rtebral body heights are maintained. Accentuated upper thoracic kyphosis. Some ACDF changes are noted at C5-C6. On the swimmer's view, thoracic alignment appears maintained. Lumbar spine: 5 lumbar type vertebral bodies. There is extensive laminectomy change throughout the lumbar spine wit h lateral osseous fusion changes. Bridging anterior thoracic spondylosis. L5-S1 interbody fusion hard cruz. Vertebral body heights are preserved and alignment is maintained. IMPRESSION: 1. Thoracic and lumbar spine without vertebral compression collapse or malalignment seen. 2. Extensive bridging endplate spondylosis throughout. 3. Additional extensive laminectomy changes throughout the lumbar spine with lateral osseous fusion.
--- NOTE | 2018-01-02 15:33 | XR ---
EXAMINATION TYPE: XR femur 2 views bilateral, XR tibia fibula 2 views bilateral DATE OF EXAM: 01/02/2018 COMPARISON: NONE HISTORY: 62-year-old male pain after falling out of bed today FINDINGS: Femurs: Moderate degenerative spurring at both hips. Prominent heterotopic ossification especially along the superior aspect of the left hip. Diffuse muscular atrophy. No acute fracture identified. Old Pellegri ni-Stieda at the left knee. No acute fracture seen. Tibia/fibula: There is a large area of focal soft tissue protuberance projecting medially at the right mid leg. Oth erwise, there is diffuse muscular atrophy. Again, previously left knee. No acute fracture seen on ei ther side. IMPRESSION: 1. Femurs: Mild to moderate bilateral hip osteoarthrosis. Prominent heterotopic ossification about th e superior aspect of the left hip. No acute fracture seen. 2. Tibias/fibulas: Large area of focal soft tissue protuberance along the medial aspect of the right mid leg. Correlate with physical exam findings. Focal hematoma is possible. Other mass including patrick gn masses such as lipoma are also considerations. Follow-up as indicated. Otherwise, no acute osseous abnormality seen.
[2018-01-02] MEDS ORDERED: HYDROcodone/APAP 7.5-325MG 1 EACH TAB PO ONE (16:37)
[2018-01-02 17:11] VITALS: BP 118/76; PULSE 92; TEMP 97
== END 2018-01-02 17:53 | disposition home or self-care (01) ==
LOC: EC 12:07
DX: S80.812A Abrasion, left lower leg, initial encounter (principal); M47.814 Spondylosis without myelopathy or radiculopathy, thoracic region; E11.9 Type 2 diabetes mellitus without complications; K21.9 Gastro-esophageal reflux disease without esophagitis; E78.5 Hyperlipidemia, unspecified; I10 Essential (primary) hypertension; N42.9 Disorder of prostate, unspecified; F41.9 Anxiety disorder, unspecified; F32.9 Major depressive disorder, single episode, unspecified; Z86.718 Personal history of other venous thrombosis and embolism; Z86.14 Personal history of Methicillin resistant Staphylococcus aureus infection; Z95.1 Presence of aortocoronary bypass graft; Z95.818 Presence of other cardiac implants and grafts; Z87.891 Personal history of nicotine dependence; Z79.01 Long term (current) use of anticoagulants; Z79.4 Long term (current) use of insulin; Z79.899 Other long term (current) drug therapy; W06.XXXA Fall from bed, initial encounter; Y92.009 Unspecified place in unspecified non-institutional (private) residence as the place of occurrence of the external cause
CPT/HCPCS: 70450; 71046; 72070; 72100; 72125; 99284

== ENCOUNTER → 2018-02-08 | Outpatient (CLI) | payer BC ==
--- NOTE | 2018-02-09 05:46 | MR ---
EXAMINATION TYPE: MR pelvis wo con DATE OF EXAM: 02/08/2018 COMPARISON: None HISTORY: R/O lt ischium osteomyelitis, ordered w/o contrast Standard multiplanar, multisequence MRI departmental protocol Multiplanar, multisequence images of the pelvis were acquired. FINDINGS: There is bilateral subcutaneous edema over the posterior lower pelvis. There is no evidence of free fluid in the pelvis. There is Hagan catheter in the urinary bladder. Proximal femurs are int act. Hip joint spaces are fairly normal. There is hypertrophic acetabular spur formation bilaterally. On the T2 images there is abnormal increased signal on both sides of the left sacroiliac joint. This has decreased signal on T1 and is consistent with diffuse bone edema. There is inflammatory mass exte nding into the left sciatic notch from the sacroiliac joint. There is increased edema signal extendin g from the left side of the sacrum at the sacroiliac joint into the lower left segments of the sacrum . There is slight increased signal in the left ischial tubercle that measures 4.2 x 1.9 cm. IMPRESSION: There is edema demonstrated on both sides of the left sacroiliac joint and phlegmon consistent with o steomyelitis. This extends into the lower sacral segments on the left side. There is edema in the left ischium at the ischial tubercle consistent with osteomyelitis.
== END | disposition home or self-care (01) ==
LOC: RADMRIMAIN 15:42
PROVIDERS: ATTEND Family Medicine
DX: R60.1 Generalized edema (principal)
CPT/HCPCS: 72195

== ENCOUNTER 2018-02-14 10:17 | Inpatient (IN) | payer BC ==
[2018-02-14] MEDS ORDERED: SODIUM CHLORIDE 0.9% 1,000 ML IV ONE (10:30)
--- NOTE | 2018-02-14 10:37 | ED ---
Altered Mental Status HPI - General Chief Complaint: Altered Mental Status Stated Complaint: Mental health Time Seen by Provider: 02/14/18 10:17 Source: patient, family, RN notes reviewed Mode of arrival: EMS Limitations: altered mental status - History of Present Illness Initial Comments: This is a 62-year-old male with a history of multiple medical problems including osteomyelitis of the coccyx paraplegia since spinal surgery last February hypertension urinary tract infections colostomy Adalid among other things who was brought in by EMS today after being sent in from home with complaints of altered mental status. Patient apparently is been hallucinating. He's been apparently seen things that aren't there. He was seen by visiting nurses this morning and the concern for psychosis versus stroke versus possible infection. Patient currently being treated for osteomyelitis but no new other medications patient had been eating and drinking well and had been doing very well up until the past several days. This progressed over the past several days. MD Complaint: altered mental status, confusion - Related Data Home Medications Medication Instructions Recorded Confirmed Diltiazem Cd [Cardizem Cd] 120 mg PO DAILY 09/21/16 02/14/18 Metoprolol Tartrate [Lopressor] 25 mg PO BID 09/21/16 02/14/18 Apixaban [Eliquis] 5 mg PO BID 07/27/17 02/14/18 Atorvastatin [Lipitor] 20 mg PO HS 07/27/17 02/14/18 Finasteride [Proscar] 5 mg PO DAILY 07/27/17 02/14/18 HYDROcodone/APAP 7.5-325MG [[place] 1 tab PO Q6HR PRN 07/27/17 02/14/18 7.5-325] Insulin Glargine [Lantus] 40 unit SQ HS PRN 07/27/17 02/14/18 Loratadine [Claritin] 10 mg PO DAILY 07/27/17 02/14/18 Multivitamins, Thera [Multivitamin 1 tab PO DAILY 07/27/17 02/14/18 (formulary)] Ferrous Sulfate [Feosol] 325 mg PO DAILY 10/03/17 02/14/18 Lisinopril [Prinivil] 5 mg PO DAILY 10/03/17 02/14/18 Pantoprazole Sodium 40 mg PO DAILY 10/03/17 02/14/18 Repaglinide [Prandin] 2 mg PO AC-TID 10/03/17 02/14/18 Zinc 25 mg PO DAILY 10/03/17 02/14/18 amLODIPine [Norvasc] 5 mg PO DAILY 10/03/17 02/14/18 Sulfamethox-Tmp 200-40Mg/5Ml 5 ml PO Q12HR 02/09/18 02/14/18 [Bactrim Suspension] Tetracycline HCl 500 mg PO BID 02/09/18 02/14/18 Allergies Allergy/AdvReac Type Severity Reaction Status Date / Time No Known Allergies Allergy Verified 02/14/18 11:10 Review of Systems ROS Statement: Those systems with pertinent positive or pertinent negative responses have been documented in the HPI. ROS Other: All systems not noted in ROS Statement are negative. Past Medical History Past Medical History: Diabetes Mellitus, Deep Vein Thrombosis (DVT), GERD/Reflux , Hyperlipidemia, Hypertension, Prostate Disorder Additional Past Medical History / Comment(s): DVT B/L LE, anxiety/depression, picc line lt arm. Paraplegia SINCE LAMINECTOMY FEB 15, 2017PARALIZED WAIST DOWN SINCE LAMINECTOMY FEB 15, 2017; has wound vac; History of Any Multi-Drug Resistant Organisms: MRSA, VRE Date of last positivie culture/infection: 01/12/18 MRSA; 07/28/17 VRE MDRO Source:: Hip-MRSA & VRE Past Surgical History: Back Surgery, Bowel Resection, Coronary Bypass/CABG, Heart Catheterization Additional Past Surgical History / Comment(s): LAMINECTOMY 02/15/17. COLONOSCOPY. COLOSTOMY. SUp PUBIC CATH (changed last 11-29-17). BACK SX X 4. PICC Line Past Anesthesia/Blood Transfusion Reactions: Previous Problems w/ Anesthesia Additional Past Anesthesia/Blood Transfusion Reaction / Comment(s): SLOW TO COME OUT OF ANESTHESIA AFTER LAST PROCEDURE Past Psychological History: Anxiety, Depression Smoking Status: Former smoker - Past Family History Brother(s) Family Medical History: Cancer Mother Additional Family Medical History / Comment(s): emphysema Father Additional Family Medical History / Comment(s): emphysema General Exam - General Exam Comments Initial Comments: This is a well-developed well-nourished awake but confused male Limitations: altered mental status, physical limitation General appearance: alert, lethargic, other (Confused) Head exam: Present: atraumatic, normocephalic, normal inspection Eye exam: Present: normal appearance, PERRL, EOMI. Absent: scleral icterus, conjunctival injection, periorbital swelling ENT exam: Present: normal exam, mucous membranes moist Neck exam: Present: normal inspection. Absent: tenderness, meningismus, lymphadenopathy Respiratory exam: Present: normal lung sounds bilaterally. Absent: respiratory distress, wheezes, rales, rhonchi, stridor Cardiovascular Exam: Present: regular rate, normal rhythm, normal heart sounds. Absent: systolic murmur, diastolic murmur, rubs, gallop, clicks GI/Abdominal exam: Present: soft, normal bowel sounds, other (Colostomy site intact). Absent: distended, tenderness, guarding, rebound, rigid Rectal exam: Present: deferred, other (Ulceration appears to be in his stated healing) exam: Present: other (Hagan catheter in place) Extremities exam: Present: normal inspection, full ROM, normal capillary refill. Absent: tenderness, pedal edema, joint swelling, calf tenderness Back exam: Present: normal inspection Neurological exam: Present: alert, altered, CN II-XII intact, motor sensory deficit (Lower extremity, chronic) Psychiatric exam: Present: flat affect Skin exam: Present: warm, dry, pallor. Absent: rash Course Vital Signs 02/14/18 02/14/18 02/14/18 10:25 11:41 12:33 Temperature 98.6 F 98.0 F Pulse Rate 88 88 88 Respiratory 18 18 18 Rate Blood Pressure 131/71 125/70 117/65 O2 Sat by Pulse 95 98 Oximetry 02/14/18 13:42 Temperature 98.0 F Pulse Rate 98 Respiratory 18 Rate Blood Pressure 145/68 O2 Sat by Pulse 98 Oximetry Medical Decision Making - Medical Decision Making Patient was evaluated by the psychiatric service and currently isn't a candidate for inpatient psychiatric care. He does have evidence of dehydration. I did discuss the case with Dr. Lopez and with family members patient be admitted for psychiatric and neurological consultation and IV hydration. - Lab Data Result diagrams: 02/14/18 10:40 02/14/18 10:40 Lab Results 02/14/18 02/14/18 02/14/18 Range/Units 10:40 10:40 10:40 WBC 5.0 (3.8-10.6) k/uL RBC 3.31 L (4.30-5.90) m/uL Hgb 9.3 L (13.0-17.5) gm/dL Hct 28.3 L (39.0-53.0) % MCV 85.4 D (80.0-100.0) fL MCH 28.0 (25.0-35.0) pg MCHC 32.8 (31.0-37.0) g/dL RDW 14.6 (11.5-15.5) % Plt Count 251 (150-450) k/uL Neutrophils % 81 % Lymphocytes % 9 % Monocytes % 6 % Eosinophils % 1 % Basophils % 0 % Neutrophils # 4.1 (1.3-7.7) k/uL Lymphocytes # 0.5 L (1.0-4.8) k/uL Monocytes # 0.3 (0-1.0) k/uL Eosinophils # 0.1 (0-0.7) k/uL Basophils # 0.0 (0-0.2) k/uL PT (9.0-12.0) sec INR (<1.2) APTT (22.0-30.0) sec Sodium (137-145) mmol/L Potassium (3.5-5.1) mmol/L Chloride (98-107) mmol/L Carbon Dioxide (22-30) mmol/L Anion Gap mmol/L BUN (9-20) mg/dL Creatinine (0.66-1.25) mg/dL Est GFR (CKD-EPI)AfAm (>60 ml/min/1.73 sqM) Est GFR (CKD-EPI)NonAf (>60 ml/min/1.73 sqM) Glucose (74-99) mg/dL POC Glucose (mg/dL) (75-99) mg/dL POC Glu Fuel Verification Technician ID Calcium (8.4-10.2) mg/dL Magnesium (1.6-2.3) mg/dL Total Bilirubin (0.2-1.3) mg/dL AST (17-59) U/L ALT (21-72) U/L Alkaline Phosphatase (38-126) U/L Ammonia 11 (<30) umol/L Total Creatine Kinase 334 H (55-170) U/L CK-MB (CK-2) 4.8 H (0.0-2.4) ng/mL CK-MB (CK-2) Rel Index 1.4 Troponin I <0.012 (0.000-0.034) ng/mL Total Protein (6.3-8.2) g/dL Albumin (3.5-5.0) g/dL Urine Color Urine Appearance (Clear) Urine pH (5.0-8.0) Ur Specific [place] (1.001-1.035) Urine Protein (Negative) Urine Glucose (UA) (Negative) Urine Ketones (Negative) Urine Blood (Negative) Urine Nitrite (Negative) Urine Bilirubin (Negative) Urine Urobilinogen (<2.0) mg/dL Ur Leukocyte Esterase (Negative) Urine RBC (0-5) /hpf Urine WBC (0-5) /hpf Urine Mucus (None) /hpf Urine Opiates Screen (NotDetected) Ur Oxycodone Screen (NotDetected) Urine Methadone Screen (NotDetected) Ur Propoxyphene Screen (NotDetected) Ur Barbiturates Screen (NotDetected) U Tricyclic Antidepress (NotDetected) Ur Phencyclidine Scrn (NotDetected) Ur Amphetamines Screen (NotDetected) U Methamphetamines Scrn (NotDetected) U Benzodiazepines Scrn (NotDetected) Urine Cocaine Screen (NotDetected) U Marijuana (THC) Screen (NotDetected) 02/14/18 02/14/18 02/14/18 Range/Units 10:40 10:40 10:50 WBC (3.8-10.6) k/uL RBC (4.30-5.90) m/uL Hgb (13.0-17.5) gm/dL Hct (39.0-53.0) % MCV (80.0-100.0) fL MCH (25.0-35.0) pg MCHC (31.0-37.0) g/dL RDW (11.5-15.5) % Plt Count (150-450) k/uL Neutrophils % % Lymphocytes % % Monocytes % % Eosinophils % % Basophils % % Neutrophils # (1.3-7.7) k/uL Lymphocytes # (1.0-4.8) k/uL Monocytes # (0-1.0) k/uL Eosinophils # (0-0.7) k/uL Basophils # (0-0.2) k/uL PT 10.8 (9.0-12.0) sec INR 1.0 (<1.2) APTT 26.6 (22.0-30.0) sec Sodium 138 (137-145) mmol/L Potassium 4.8 (3.5-5.1) mmol/L Chloride 105 (98-107) mmol/L Carbon Dioxide 26 (22-30) mmol/L Anion Gap 7 mmol/L BUN 20 (9-20) mg/dL Creatinine 0.82 (0.66-1.25) mg/dL Est GFR (CKD-EPI)AfAm >90 (>60 ml/min/1.73 sqM) Est GFR (CKD-EPI)NonAf >90 (>60 ml/min/1.73 sqM) Glucose 116 H (74-99) mg/dL POC Glucose (mg/dL) (75-99) mg/dL POC Glu Fuel Verification Technician ID Calcium 9.1 (8.4-10.2) mg/dL Magnesium 2.0 (1.6-2.3) mg/dL Total Bilirubin 0.4 (0.2-1.3) mg/dL AST 25 (17-59) U/L ALT 42 (21-72) U/L Alkaline Phosphatase 94 (38-126) U/L Ammonia (<30) umol/L Total Creatine Kinase (55-170) U/L CK-MB (CK-2) (0.0-2.4) ng/mL CK-MB (CK-2) Rel Index Troponin I (0.000-0.034) ng/mL Total Protein 7.3 (6.3-8.2) g/dL Albumin 3.2 L (3.5-5.0) g/dL Urine Color Urine Appearance (Clear) Urine pH (5.0-8.0) Ur Specific [place] (1.001-1.035) Urine Protein (Negative) Urine Glucose (UA) (Negative) Urine Ketones (Negative) Urine Blood (Negative) Urine Nitrite (Negative) Urine Bilirubin (Negative) Urine Urobilinogen (<2.0) mg/dL Ur Leukocyte Esterase (Negative) Urine RBC (0-5) /hpf Urine WBC (0-5) /hpf Urine Mucus (None) /hpf Urine Opiates Screen Detected H (NotDetected) Ur Oxycodone Screen Not Detected (NotDetected) Urine Methadone Screen Not Detected (NotDetected) Ur Propoxyphene Screen Not Detected (NotDetected) Ur Barbiturates Screen Not Detected (NotDetected) U Tricyclic Antidepress Not Detected (NotDetected) Ur Phencyclidine Scrn Not Detected (NotDetected) Ur Amphetamines Screen Not Detected (NotDetected) U Methamphetamines Scrn Not Detected (NotDetected) U Benzodiazepines Scrn Detected H (NotDetected) Urine Cocaine Screen Not Detected (NotDetected) U Marijuana (THC) Screen Not Detected (NotDetected) 02/14/18 02/14/18 Range/Units 10:50 11:13 WBC (3.8-10.6) k/uL RBC (4.30-5.90) m/uL Hgb (13.0-17.5) gm/dL Hct (39.0-53.0) % MCV (80.0-100.0) fL MCH (25.0-35.0) pg MCHC (31.0-37.0) g/dL RDW (11.5-15.5) % Plt Count (150-450) k/uL Neutrophils % % Lymphocytes % % Monocytes % % Eosinophils % % Basophils % % Neutrophils # (1.3-7.7) k/uL Lymphocytes # (1.0-4.8) k/uL Monocytes # (0-1.0) k/uL Eosinophils # (0-0.7) k/uL Basophils # (0-0.2) k/uL PT (9.0-12.0) sec INR (<1.2) APTT (22.0-30.0) sec Sodium (137-145) mmol/L Potassium (3.5-5.1) mmol/L Chloride (98-107) mmol/L Carbon Dioxide (22-30) mmol/L Anion Gap mmol/L BUN (9-20) mg/dL Creatinine (0.66-1.25) mg/dL Est GFR (CKD-EPI)AfAm (>60 ml/min/1.73 sqM) Est GFR (CKD-EPI)NonAf (>60 ml/min/1.73 sqM) Glucose (74-99) mg/dL POC Glucose (mg/dL) 119 H (75-99) mg/dL POC Glu Fuel Verification Technician ID Leela Beebe Calcium (8.4-10.2) mg/dL Magnesium (1.6-2.3) mg/dL Total Bilirubin (0.2-1.3) mg/dL AST (17-59) U/L ALT (21-72) U/L Alkaline Phosphatase (38-126) U/L Ammonia (<30) umol/L Total Creatine Kinase (55-170) U/L CK-MB (CK-2) (0.0-2.4) ng/mL CK-MB (CK-2) Rel Index Troponin I (0.000-0.034) ng/mL Total Protein (6.3-8.2) g/dL Albumin (3.5-5.0) g/dL Urine Color Yellow Urine Appearance Clear (Clear) Urine pH 5.5 (5.0-8.0) Ur Specific [place] 1.016 (1.001-1.035) Urine Protein Trace H (Negative) Urine Glucose (UA) Negative (Negative) Urine Ketones Negative (Negative) Urine Blood Small H (Negative) Urine Nitrite Negative (Negative) Urine Bilirubin Negative (Negative) Urine Urobilinogen <2.0 (<2.0) mg/dL Ur Leukocyte Esterase Small H (Negative) Urine RBC 20 H (0-5) /hpf Urine WBC 4 (0-5) /hpf Urine Mucus Rare H (None) /hpf Urine Opiates Screen (NotDetected) Ur Oxycodone Screen (NotDetected) Urine Methadone Screen (NotDetected) Ur Propoxyphene Screen (NotDetected) Ur Barbiturates Screen (NotDetected) U Tricyclic Antidepress (NotDetected) Ur Phencyclidine Scrn (NotDetected) Ur Amphetamines Screen (NotDetected) U Methamphetamines Scrn (NotDetected) U Benzodiazepines Scrn (NotDetected) Urine Cocaine Screen (NotDetected) U Marijuana (THC) Screen (NotDetected) - EKG Data -: EKG Interpreted by Me (Normal sinus rhythm a 91 appear interval 1:30 QRS duration 96 QT since QTC ) - Radiology Data Radiology results: report reviewed (I did review the imaging and report no acute findings), image reviewed Disposition Clinical Impression: Psychosis, Dehydration, Failure to thrive syndrome, adult Disposition: ADMITTED IP TO THIS [facility] Condition: Stable Referrals: Gilmer Lopez MD [Primary Care Provider] - 1-2 days
[2018-02-14 11:15] LABS: ALT 42 U/L (21-72); AST 25 U/L (17-59); Albumin 3.2 g/dL (3.5-5.0); Alkaline Phosphatase 94 U/L (38-126); Anion Gap 7 mmol/L; Blood Urea Nitrogen 20 mg/dL (9-20); Calcium 9.1 mg/dL (8.4-10.2); Carbon Dioxide 26 mmol/L (22-30); Chloride 105 mmol/L (98-107); Glucose 116 mg/dL (74-99); Potassium 4.8 mmol/L (3.5-5.1); Sodium 138 mmol/L (137-145); Total Bilirubin 0.4 mg/dL (0.2-1.3); Total Protein 7.3 g/dL (6.3-8.2)
[2018-02-14 11:16] LABS: Glucose,Whole Blood 119 mg/dL (75-99)
[2018-02-14 11:18] LABS: Basophils % (A) 0 %; Eosinophils # (A) 0.1 k/uL (0-0.7); Eosinophils % (A) 1 %; HCT 28.3 % (39.0-53.0); HGB 9.3 gm/dL (13.0-17.5); Lymphocytes # (A) 0.5 k/uL (1.0-4.8); Lymphocytes % (A) 9 %; MCHC 32.8 g/dL (31.0-37.0); Mean Platelet Volume 6.7; Monocytes # (A) 0.3 k/uL (0-1.0); Monocytes % (A) 6 %; Neutrophils # (A) 4.1 k/uL (1.3-7.7); Neutrophils % (A) 81 %; Platelet Count 251 k/uL (150-450); RBC 3.31 m/uL (4.30-5.90); RDW 14.6 % (11.5-15.5)
[2018-02-14 11:22] LABS: Appearance,Urine Clear (Clear); Bilirubin,Urine Negative (Negative); Blood,Urine Small (Negative); Color,Urine Yellow; Glucose,Urine (UA) Negative (Negative); Ketones,Urine Negative (Negative); Leukocyte Esterase,Urine Small (Negative); Mucus,Urine Rare /hpf; Nitrite,Urine Negative (Negative); PH, Urine 5.5 (5.0-8.0); Protein,Urine Trace (Negative); RBC,Urine 20 /hpf (0-5); Specific Gravity,Urine 1.016 (1.001-1.035); Urobilinogen,Urine <2.0 mg/dL (<2.0)
[2018-02-14 11:22] LABS: MCV 85.4 fL (80.0-100.0)
[2018-02-14 11:25] LABS: Partial Thromboplastin Time 26.6 sec (22.0-30.0); Prothrombin Time 10.8 sec (9.0-12.0)
[2018-02-14 11:31] LABS: Creatine Kinase 334 U/L (55-170)
[2018-02-14 11:35] LABS: Amphetamine Screen,Urine Not Detected (NotDetected); Barbiturate Screen,Urine Not Detected (NotDetected); Benzodiazepines Screen,Urine Detected (NotDetected); Cocaine Screen,Urine Not Detected (NotDetected); Methadone Screen, Urine Not Detected (NotDetected); Opiate Screen,Urine Detected (NotDetected); Oxycodone Screen, Urine Not Detected (NotDetected); Phencyclidine Screen,Urine Not Detected (NotDetected); Tricyclic Antidepressant,Urine Not Detected (NotDetected); Urn Cannabinoid Scrn Not Detected (NotDetected)
[2018-02-14 11:44] LABS: Creatine Kinase MB 4.8 ng/mL (0.0-2.4); Troponin I <0.012 ng/mL (0.000-0.034)
--- NOTE | 2018-02-14 11:45 | XR ---
EXAMINATION TYPE: XR chest 2V DATE OF EXAM: 02/14/2018 COMPARISON: 12/13/2017 INDICATION: Recurring pneumonia difficulty breathing TECHNIQUE: Frontal and lateral views of the chest are obtained. FINDINGS: The heart size is normal. The pulmonary vasculature is normal. The lungs are clear. IMPRESSION: 1. No acute pulmonary process.
--- NOTE | 2018-02-14 12:36 | CT ---
EXAMINATION TYPE: CT brain wo con DATE OF EXAM: 02/14/2018 COMPARISON: 01/02/2018 INDICATION: Altered mental status x3 days DLP: 1197.4 mGycm, Automated exposure control for dose reduction was used. CONTRAST: None CT of the brain is performed utilizing 3 mm thick sections through the posterior fossa and 3 mm thick sections through the remaining calvarium. Study is performed within 24 hours of arrival to the hosp ital. No abnormal hyperdensity is present to suggest an acute intracranial hemorrhage. No mass lesion is evident. No acute infarcts are evident. Mild periventricular white matter changes may be present, most likely on the basis of chronic white matter ischemic change. Ventricles and sulci are appropriate for the patient age. Paranasal sinuses and mastoid air cells within the [id number] are clear. IMPRESSIONS: 1. Mild periventricular white matter ischemic type change.
[2018-02-14] MEDS ORDERED: LORazepam 2 MG/ML INJ IV STA ×2 (14:41→15:32)
[2018-02-14] MEDS ORDERED: NALOXONE 0.4 MG/ML 1 ML VIAL IV PRN (15:06)
[2018-02-14] MEDS ORDERED: HYDROcodone/APAP 7.5-325MG 1 EACH TAB PO PRN (15:10)
[2018-02-14] MEDS ORDERED: INSULIN GLARGINE 40 UNIT SQ PRN (15:10)
[2018-02-14] MEDS ORDERED: levETIRAcetam IV 1,000 MG in SALINE 1 100ML.BAG IVPB STA (19:15)
[2018-02-14] MEDS: REPAGLINIDE 1 MG TAB PO SCH (19:33)
[2018-02-14] MEDS: SODIUM CHLORIDE 0.9% 1,000 ML IV SCH ×2 (19:34→21:22)
[2018-02-14] MEDS: TETRACYCLINE 500 MG PO SCH (21:18)
[2018-02-14] MEDS: ATORVASTATIN 20 MG TAB PO SCH (21:20)
[2018-02-14] MEDS: METOPROLOL TARTRATE 25 MG TAB PO SCH (21:20)
[2018-02-14] MEDS: APIXABAN 5 MG TAB PO SCH (21:20)
[2018-02-14] MEDS: SULFAMETHOX-TMP 200-40MG/5ML 20 ML CUP PO SCH (21:20)
[2018-02-14 21:27] LABS: Glucose,Whole Blood 101 mg/dL (75-99)
[2018-02-15 07:54] LABS: Glucose,Whole Blood 92 mg/dL (75-99)
[2018-02-15] MEDS: REPAGLINIDE 1 MG TAB PO SCH ×3 (08:03→17:23)
--- NOTE | 2018-02-15 08:44 | CONS ---
CONSULTATION DATE OF CONSULTATION: 02/14/2018 CHIEF COMPLAINT: Altered mental status. HISTORY OF PRESENT ILLNESS: The patient is a pleasant 62-year-old male, who is being evaluated today on 02/14/2018 by the neurology service per the request of Dr. Lopez for altered mental status. The patient was brought in to [facility] Emergency Room by his family after they noticed that he has been having recurrent episodes of altered consciousness and confusion along with some abnormal movements involving his arms. The patient has history of paraplegia secondary to a failed lumbar spine surgery and recently had complications from that surgery with osteomyelitis. He had been receiving IV antibiotics. A CT scan of the brain was done, which showed no acute intracranial abnormalities. Small vessel ischemic changes were seen. His chest x-ray showed no evidence of any infiltrate. His CBC showed anemia with a hemoglobin of 9.3 and hematocrit of 28%. His comprehensive metabolic profile was normal. His cardiac enzymes showed slightly elevated CPK and CK-MB but his troponin was normal. His urine drug screen was positive for opiates and benzodiazepines. The patient is prescribed these medications. 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 SOCIAL HISTORY: The patient is a former smoker. There is no history of any alcohol or drug use. FAMILY HISTORY: Positive for cancer and emphysema. HOME MEDICATIONS: Reviewed in the chart. ALLERGIES: No known drug allergies. REVIEW OF SYSTEM: Unable to obtain due to altered mental status. PHYSICAL EXAM: Vital signs show a temperature of 98.0, pulse 99, respiration 18, blood pressure 125/72. GENERAL APPEARANCE: The patient is a well-developed male who has recurrent episodes of unresponsiveness during my history taking. HEENT: Normocephalic, atraumatic. No obvious facial asymmetry is seen. NECK: Supple with no masses felt. CARDIOVASCULAR: Regular rate and rhythm. ABDOMEN: Nontender, nondistended. Extremities showed edema with no clubbing seen. NEUROLOGICAL EXAM: The patient did have multiple episodes of sudden onset of unresponsiveness with occasional right facial twitching and bilateral upper extremity twitching, each lasting approximately 5 seconds. After the episodes, the patient is oriented to person only. He does follow simple commands. Strength is 1/5 in bilateral lower extremities and 4/5 in bilateral upper extremities. Sensation is absent in bilateral lower extremities. Postural tremors are seen in bilateral upper extremities. IMPRESSION: 1. Recurrent seizures. 2. Altered mental status. 3. Chronic pain syndrome. 4. Osteomyelitis. RECOMMENDATION: The patient's recurrent episode of unresponsiveness and altered mental status along with mild facial and upper extremity twitching, are concerning for epileptic activity. The patient has no previous history of seizures but is currently on IV antibiotics for his osteomyelitis. I do recommend Infectious Disease to consider various antibiotics that do not reduce seizure threshold. For now, I will give the patient a stat dose of Keppra 1000 mg IV and will keep him on Keppra 750 mg IV b.i.d. An EEG has been ordered. Continue neuro checks. Further outpatient neurological treatments will be discussed with him after his discharge. I will continue to follow with you. Further recommendations to follow. Thank you Dr. Lopez for allowing me to participate in the care of your patient. If you have any questions, please feel free to contact me. IVANA / DOYLEN: [id number] /
[2018-02-15] MEDS: levETIRAcetam IV 750 MG in SODIUM CHLORIDE 0.9% 100 ML IVPB SCH ×3 (09:02→21:49)
[2018-02-15] MEDS: MULTIVITAMINS, THERA 1 EACH TAB PO SCH (09:02)
[2018-02-15] MEDS: METOPROLOL TARTRATE 25 MG TAB PO SCH ×2 (09:02→21:49)
[2018-02-15] MEDS: amLODIPine 5 MG TAB PO SCH (09:02)
[2018-02-15] MEDS: PANTOPRAZOLE 40 MG TABLET PO SCH (09:02)
[2018-02-15] MEDS: FINASTERIDE 5 MG TAB PO SCH (09:04)
[2018-02-15] MEDS: APIXABAN 5 MG TAB PO SCH ×2 (09:04→21:49)
[2018-02-15] MEDS: DILTIAZEM CD 120 MG CAP.ER.24H PO SCH (09:04)
[2018-02-15] MEDS: LISINOPRIL 5 MG TAB PO SCH (09:04)
[2018-02-15] MEDS: FERROUS SULFATE 325 MG TAB PO SCH (09:04)
[2018-02-15] MEDS: LORATADINE 10 MG TAB PO SCH (09:04)
[2018-02-15] MEDS: SULFAMETHOX-TMP 200-40MG/5ML 20 ML CUP PO SCH ×2 (09:05→21:49)
[2018-02-15] MEDS: ZINC SULFATE 220 MG CAP PO SCH (09:06)
[2018-02-15] MEDS: TETRACYCLINE 500 MG PO SCH ×2 (09:06→21:50)
[2018-02-15 09:52] LABS: ALT 32 U/L (21-72); AST 22 U/L (17-59); Albumin 2.8 g/dL (3.5-5.0); Alkaline Phosphatase 81 U/L (38-126); Anion Gap 5 mmol/L; Blood Urea Nitrogen 24 mg/dL (9-20); Calcium 8.6 mg/dL (8.4-10.2); Carbon Dioxide 26 mmol/L (22-30); Chloride 108 mmol/L (98-107); Glucose 94 mg/dL (74-99); Potassium 4.3 mmol/L (3.5-5.1); Sodium 139 mmol/L (137-145); Total Bilirubin 0.3 mg/dL (0.2-1.3); Total Protein 6.5 g/dL (6.3-8.2)
[2018-02-15 09:58] LABS: Basophils % (A) 0 %; Eosinophils # (A) 0.2 k/uL (0-0.7); Eosinophils % (A) 5 %; HGB 8.2 gm/dL (13.0-17.5); Hypochromasia Slight; Lymphocytes # (A) 0.5 k/uL (1.0-4.8); Lymphocytes % (A) 11 %; MCHC 31.7 g/dL (31.0-37.0); MCV 88.4 fL (80.0-100.0); Mean Platelet Volume 6.7; Monocytes # (A) 0.3 k/uL (0-1.0); Monocytes % (A) 6 %; Neutrophils # (A) 3.7 k/uL (1.3-7.7); Neutrophils % (A) 76 %; Platelet Count 218 k/uL (150-450); RBC 2.94 m/uL (4.30-5.90); WBC 4.9 k/uL (3.8-10.6)
[2018-02-15 10:55] VITALS: BMI 29.4
[2018-02-15 11:04] LABS: Glucose,Whole Blood 99 mg/dL (75-99)
--- NOTE | 2018-02-15 13:45 | P.HPIM ---
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 Patients daughter is at the bedside and reports patient has "not been himself". She reports he has been agitated and pulled himself out of bed a few days ago onto the floor. She states he was shaking his upper extremities uncontrollably and then would stop and have a glazed over look on his face and was confused afterwards. She does report that the patient has been awake for four days straight and has not slept. Chest x-ray completed in the emergency room was negative for an acute cardiopulmonary process. CT of the brain revealed mild periventricular white matter ischemic changes. Laboratory data upon admission reveals white count 5.0. Hemoglobin 9.3. Platelet count 251. Sodium 138. Potassium 4.8. BUN 20. Creatinine 0.82. Glucose 116. Magnesium 2.0 Urinalysis reveals: Trace protein, small blood, small leukocyte esterase, RBC 20 , WBC 4 The patient was admitted to the hospital under the care of Dr. Lopez. Consultations were placed to neurology. REVIEW OF SYSTEMS: Unable to thoroughly assess due to patients mental status PHYSICAL EXAM: GENERAL: This is a 62-year-old male in no apparent distress at the time of examination. Patient is lethargic HEENT: Head is atraumatic, normocephalic. Pupils are equal, round, and reactive to light. Sclerae anicteric. Conjunctivae are clear. Mucus membranes of the mouth are moist. Neck is supple. RESPIRATORY: Clear to auscultation.. No wheezes, rales, or rhonchi. No use of accessory muscles. Patient maintaining oxygen saturation greater than 92%. No chest wall tenderness is noted on palpation or with deep breathing. CARDIOVASCULAR: Regular rate and rhythm. S1 and S2 noted. No systolic or diastolic murmur auscultated. No JVD noted. No S3 or S4 noted. GASTROINTESTINAL: No distention noted. Abdomen soft and round. Normal active bowel sounds auscultated x 4 quadrants. Colostomy present. GI: Suprapubic catheter noted with clear yellow urine. INTEGUMENTARY: Stage IV wound to coccyx. No cyanosis. No jaundice. No rashes noted. No cellulitis noted. EXTREMITIES: 2+ peripheral pulses. No evidence of peripheral edema. NEUROLOGIC: Patient without sensation or motor activity of lower extremities secondary to paraplegia. No tremors or seizure activity noted during examination. Patient remains lethargic. Patient oriented to self. Stated he was in a hospital but unable to correctly name hospital. ASSESSMENT: Altered mental status and abnormal involuntary movements of upper extremities, suspect seizure activity per neurology History of laminectomy, February 2017 Paraplegia, s/p laminectomy History of three previous back surgeries prior to laminectomy in 2017 History of stage IV coccyx wound, present on admission, with hx of multiple antibiotic therapies, wound vac multiple times, and hyperbaric oxygen treatments History of suprapubic catheter insertion and colostomy, in an attempt to keep wound clean and improve healing Neurogenic bladder Osteomyelitis of lumbar spine Diabetes mellitus, type II Hypertension Hyperlipidemia History of bilateral DVT History of Guillain-Suazo syndrome History of MRSA, coccyx wound History of VRE, coccyx wound PLAN: Neurology on consult. Appreciate recommendations and input Seizure precautions EEG ordered. await results Patient has been following with Dr. Lopez weekly in the wound center and managing antibiotics and wound care Continue antibiotics: Bactrim and tetracycline Continue wound care to coccyx. Collagen silver to wound Patient must be on an auto-rotation bed, not just a pressure reduction mattress. Per Dr. Lopez, patient is to be transferred to the ICU for auto- rotation bed. Patient usually has nocturnal tube feeding only and eats meals during the day. However, patient has had decreased PO intake and lethargic. patient to receive Glucerna 1.2 at 70ml around the clock until patients PO intake improves. Home meds as appropriate Monitor labs GI prophylaxis: Protonix 40 mg PO Daily DVT prophylaxis: Eliquis 5 mg by mouth twice a day Monitor vital signs and address as appropriate Discharge planning: Patient to return home when stable. Patients spouse cares for him and also has home care. Further recommendations pending patient's course Nurse practitioner note has been reviewed by physician. Signing provider agrees with the documented findings, assessment, and plan of care. Past Medical History Past Medical History: Diabetes Mellitus, Deep Vein Thrombosis (DVT), GERD/Reflux , Hyperlipidemia, Hypertension, Prostate Disorder Additional Past Medical History / Comment(s): DVT B/L LE, anxiety/depression, difficulty sleeping,history of osteomeylitis- coccyx wound has had hyerbaric tx and wound vac. currently has coccyx wound goes to [facility] every thurd at 9am.,uti' s. 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 Paraplegia SINCE LAMINECTOMY FEB 15, 2017PARALIZED WAIST DOWN SINCE LAMINECTOMY FEB 15, 2017; abd hernia. per "pt gets tube feeding but eats 3 meals a day but carefull with thin liquids or any tough meat. crush all meds put thru peg tube" History of Any Multi-Drug Resistant Organisms: MRSA, VRE Date of last positivie culture/infection: 01/12/18 MRSA; 07/28/17 VRE MDRO Source:: Hip-MRSA & VRE Past Surgical History: Back Surgery, Bowel Resection, Coronary Bypass/CABG, Heart Catheterization Additional Past Surgical History / Comment(s): LAMINECTOMY 02/15/17-has had total of 4 sx, lt arm picc line-since removed. COLONOSCOPY, 5 vessel cabg. COLOSTOMY(was done d/t non healing coccyx wound. SUpra PUBIC CATH (changed last 02-11-18), picc line-since removed. peg tube. PICC Line Past Anesthesia/Blood Transfusion Reactions: Previous Problems w/ Anesthesia Additional Past Anesthesia/Blood Transfusion Reaction / Comment(s): SLOW TO COME OUT OF ANESTHESIA AFTER LAST PROCEDURE. blood transfusion-no reaction Past Psychological History: Anxiety, Depression Additional Psychological History / Comment(s): pt lives at home w/spouse. has [facility] home care. has hospital bed/air mattress, temitope lift but stated pt is currently bedridden -not to sit in chair d/t wounds coccyx/buttocks, turn every 2 hours(per ) Smoking Status: Former smoker Past Alcohol Use History: Occasional Additional Past Alcohol Use History / Comment(s): started smoking at age 17 and QUIT SMOKING cigarettes 1992-started smoking cigars and , QUIT CIGARS 2009, no alcohol now Past Drug Use History: None Reported - Past Family History Brother(s) Family Medical History: Cancer Mother Additional Family Medical History / Comment(s): emphysema Father Additional Family Medical History / Comment(s): emphysema Medications and Allergies Home Medications Medication Instructions Recorded Confirmed Type Diltiazem Cd [Cardizem Cd] 120 mg PO DAILY 09/21/16 02/14/18 History Metoprolol Tartrate [Lopressor] 25 mg PO BID 09/21/16 02/14/18 History Apixaban [Eliquis] 5 mg PO BID 07/27/17 02/14/18 History Atorvastatin [Lipitor] 20 mg PO HS 07/27/17 02/14/18 History Finasteride [Proscar] 5 mg PO DAILY 07/27/17 02/14/18 History HYDROcodone/APAP 7.5-325MG [[place] 1 tab PO Q6HR PRN 07/27/17 02/14/18 History 7.5-325] Insulin Glargine [Lantus] 40 unit SQ HS PRN 07/27/17 02/14/18 History Loratadine [Claritin] 10 mg PO DAILY 07/27/17 02/14/18 History Multivitamins, Thera [Multivitamin 1 tab PO DAILY 07/27/17 02/14/18 History (formulary)] Ferrous Sulfate [Feosol] 325 mg PO DAILY 10/03/17 02/14/18 History Lisinopril [Prinivil] 5 mg PO DAILY 10/03/17 02/14/18 History Pantoprazole Sodium 40 mg PO DAILY 10/03/17 02/14/18 History Repaglinide [Prandin] 2 mg PO AC-TID 10/03/17 02/14/18 History Zinc 25 mg PO DAILY 10/03/17 02/14/18 History amLODIPine [Norvasc] 5 mg PO DAILY 10/03/17 02/14/18 History Sulfamethox-Tmp 200-40Mg/5Ml 20 ml PO Q12HR 02/09/18 02/14/18 History [Bactrim Suspension] Tetracycline HCl 500 mg PO BID 02/09/18 02/14/18 History Allergies Allergy/AdvReac Type Severity Reaction Status Date / Time No Known Allergies Allergy Verified 02/14/18 11:10 Physical Exam Vitals: Vital Signs Temp Pulse Pulse Resp BP BP Pulse Ox 02/15/18 08:00 20 02/15/18 06:00 96.7 F L 68 20 127/61 96 02/14/18 23:00 98.9 F 98 20 114/75 98 02/14/18 18:00 97.0 F L 115 H 18 142/72 97 02/14/18 16:16 98.0 F 99 18 125/72 98 02/14/18 13:42 98.0 F 98 18 145/68 98 02/14/18 12:33 88 18 117/65 02/14/18 11:41 98.0 F 88 18 125/70 98 Intake and Output 02/14/18 02/15/18 02/15/18 22:59 06:59 14:59 Intake Total 100 0 Output Total 400 Balance 100 -400 Intake: Oral 100 0 Output: Urine 400 Other: Voiding Method Indwelling Catheter Weight 92.986 kg 92.986 kg Results CBC & Chem 7: 02/15/18 09:08 02/15/18 09:08 Labs: Abnormal Lab Results - Last 24 Hours (Table) 02/14/18 02/14/18 02/15/18 Range/Units 10:40 21:12 09:08 RBC 2.94 L (4.30-5.90) m/uL Hgb 8.2 L (13.0-17.5) gm/dL Hct 26.0 L (39.0-53.0) % Lymphocytes # 0.5 L (1.0-4.8) k/uL Chloride (98-107) mmol/L BUN (9-20) mg/dL POC Glucose (mg/dL) 101 H (75-99) mg/dL CK-MB (CK-2) 4.8 H (0.0-2.4) ng/mL Albumin (3.5-5.0) g/dL 02/15/18 Range/Units 09:08 RBC (4.30-5.90) m/uL Hgb (13.0-17.5) gm/dL Hct (39.0-53.0) % Lymphocytes # (1.0-4.8) k/uL Chloride 108 H (98-107) mmol/L BUN 24 H (9-20) mg/dL POC Glucose (mg/dL) (75-99) mg/dL CK-MB (CK-2) (0.0-2.4) ng/mL Albumin 2.8 L (3.5-5.0) g/dL Thrombosis Risk Factor Assmnt - Choose All That Apply Any of the Below Risk Factors Present?: Yes Each Factor Represents 1 point: Obesity (BMI >25) Other Risk Factors: Yes Each Risk Factor Represents 2 Points: Age 61-74 years Thrombosis Risk Factor Assessment Total Risk Factor Score: 3 Thrombosis Risk Factor Assessment Level: Moderate Risk
--- NOTE | 2018-02-15 14:05 | P.CN ---
Psychiatric Consult - . Consult date: 02/15/18 Consult:: 02/15/18 09:05 altered mental status Assessment and Plan Assessment: HPI: This is a 62-year-old male with a history of multiple medical problems including osteomyelitis of the coccyx paraplegia since spinal surgery last February hypertension urinary tract infections colostomy Adalid among other things who was brought in by EMS today after being sent in from home with complaints of altered mental status. Patient apparently is been hallucinating. He's been apparently seen things that aren't there. He was seen by visiting nurses this morning and the concern for psychosis versus stroke versus possible infection. Patient currently being treated for osteomyelitis but no new other medications patient had been eating and drinking well and had been doing very well up until the past several days. This progressed over the past several days. MD Complaint: altered mental status, confusion - Related Data Home Medications Medication Instructions Recorded Confirmed Diltiazem Cd [Cardizem Cd] 120 mg PO DAILY 09/21/16 02/14/18 Metoprolol Tartrate [Lopressor] 25 mg PO BID 09/21/16 02/14/18 Apixaban [Eliquis] 5 mg PO BID 07/27/17 02/14/18 Atorvastatin [Lipitor] 20 mg PO HS 07/27/17 02/14/18 Finasteride [Proscar] 5 mg PO DAILY 07/27/17 02/14/18 HYDROcodone/APAP 7.5-325MG [[place] 1 tab PO Q6HR PRN 07/27/17 02/14/18 7.5-325] Insulin Glargine [Lantus] 40 unit SQ HS PRN 07/27/17 02/14/18 Loratadine [Claritin] 10 mg PO DAILY 07/27/17 02/14/18 Multivitamins, Thera [Multivitamin 1 tab PO DAILY 07/27/17 02/14/18 (formulary)] Ferrous Sulfate [Feosol] 325 mg PO DAILY 10/03/17 02/14/18 Lisinopril [Prinivil] 5 mg PO DAILY 10/03/17 02/14/18 Pantoprazole Sodium 40 mg PO DAILY 10/03/17 02/14/18 Repaglinide [Prandin] 2 mg PO AC-TID 07/30/18 12/11/18 Zinc 25 mg PO DAILY 10/03/17 02/14/18 amLODIPine [Norvasc] 5 mg PO DAILY 10/03/17 02/14/18 Sulfamethox-Tmp 200-40Mg/5Ml 5 ml PO Q12HR 02/09/18 02/14/18 [Bactrim Suspension] Tetracycline HCl 500 mg PO BID 02/09/18 02/14/18 Allergies Allergy/AdvReac Type Severity Reaction Status Date / Time No Known Allergies Allergy Verified 02/14/18 11:10 Past Medical History Past Medical History: Diabetes Mellitus, Deep Vein Thrombosis (DVT), GERD/Reflux , Hyperlipidemia, Hypertension, Prostate Disorder Additional Past Medical History / Comment(s): DVT B/L LE, anxiety/depression, picc line lt arm. Paraplegia SINCE LAMINECTOMY FEB 15, 2017PARALIZED WAIST DOWN SINCE LAMINECTOMY FEB 15, 2017; has wound vac; History of Any Multi-Drug Resistant Organisms: MRSA, VRE Date of last positivie culture/infection: 01/12/18 MRSA; 07/28/17 VRE MDRO Source:: Hip-MRSA & VRE Past Surgical History: Back Surgery, Bowel Resection, Coronary Bypass/CABG, Heart Catheterization Additional Past Surgical History / Comment(s): LAMINECTOMY 02/15/17. COLONOSCOPY. COLOSTOMY. SUp PUBIC CATH (changed last 11-29-17). BACK SX X 4. PICC Line Past Anesthesia/Blood Transfusion Reactions: Previous Problems w/ Anesthesia Additional Past Anesthesia/Blood Transfusion Reaction / Comment(s): SLOW TO COME OUT OF ANESTHESIA AFTER LAST PROCEDURE Past Psychological History: Anxiety, Depression Smoking Status: Former smoker - Past Family History Brother(s) Family Medical History: Cancer Mother Additional Family Medical History / Comment(s): emphysema Father Additional Family Medical History / Comment(s): emphysema Mental Status Examination - This is a 62-year-old male who is seen with his daughter bedside and nurse caring for him. It appears that he has another episode of psychosis. He is unable to participate mental status examination is delusional recognizes his name but I unable to participate in a meaningful way and a mental status examination. I reviewed with the daughter her Showing pictures of her father and the emergency room where he was grabbing at the matt clapping and talking to the ceiling. Psychiatric impression: Delirium versus cerebrovascular event: He is not a candidate for the psychiatric unit Psychiatric recommendations: Use of haloperidol 0.5 mg by mouth or IV when necessary 6 hours for agitation. Thank you for the consult Antonio Mae D.O. PhD (1) Altered mental status Current Visit: No Status: Acute Code(s): R41.82 - ALTERED MENTAL STATUS, UNSPECIFIED SNOMED Code(s): 849930792 Time with Patient: Less than 30
[2018-02-15] MEDS: INSULIN ASPART 100 UNIT/ML 1 ML 10 ML VIAL SQ SCH ×2 (17:19→21:05)
[2018-02-15] MEDS: SODIUM CHLORIDE 0.9% 1,000 ML IV SCH (17:21)
[2018-02-15 17:38] LABS: Glucose,Whole Blood 85 mg/dL (75-99)
--- NOTE | 2018-02-15 18:22 | P.PN ---
Subjective Progress Note Date: 02/15/18 Patient is a pleasant 62-year-old male who is being followed by the neurology service for altered mental status. Patient came to [facility] after family noticed he has been having recurrent episodes of altered consciousness and confusion along with abnormal movements of his arms. Patient has history of paraplegia secondary to failed spine surgery. Computed tomography scan of the brain showed no acute intracranial abnormality. Patient also has pressure sores that are being followed by Dr. Lopez and Dr. Cancino. Patient was having multiple episodes of sudden onset facial twitching and upper extremity twitching. He was placed on Keppra with an IV loading dose followed by Keppra 750 mg IV twice a day. Patient has received a couple doses and has made significant improvement. At the time of my evaluation, patient sitting up in bed and visiting with family. Patient does not appear to be in any acute distress. Objective - Vital Signs Vital signs: Vital Signs Temp 97.9 F 02/15/18 15:00 Pulse 60 02/15/18 15:00 Resp 20 02/15/18 15:29 BP 97/56 02/15/18 15:00 Pulse Ox 96 02/15/18 15:00 Intake & Output 02/14/18 02/15/18 02/15/18 18:59 06:59 18:59 Intake Total 100 Output Total 400 1100 Balance -300 -1100 Weight 92.986 kg 92.986 kg 97 kg Intake: Oral 100 Output: Urine 400 300 Stool 800 Other: Voiding Method Indwelling Catheter - Exam PHYSICAL EXAM: GENERAL APPEARANCE: Patient is a well-developed, male who appears to be in no acute distress. HEENT: Normocephalic, atraumatic, no facial asymmetry is seen. Neck is supple with no masses felt. CARDIOVASCULAR: Regular rate and rhythm. ABDOMEN: Nontender, nondistended. EXTREMITIES: Show no edema or clubbing. NEUROLOGICAL EXAM: Patient is awake, alert, and oriented 2. Patient is not clear what year this is. Strength is 1/5 in bilateral lower extremities and 4/ 5 in bilateral upper extremities. Mild postural tremors of bilateral upper extremities. Patient denies sensation to light touch in bilateral lower extremities. - Labs CBC & Chem 7: 02/15/18 09:08 02/15/18 09:08 Labs: Abnormal Lab Results - Last 24 Hours (Table) 02/14/18 02/15/18 02/15/18 Range/Units 21:12 09:08 09:08 RBC 2.94 L (4.30-5.90) m/uL Hgb 8.2 L (13.0-17.5) gm/dL Hct 26.0 L (39.0-53.0) % Lymphocytes # 0.5 L (1.0-4.8) k/uL Chloride 108 H (98-107) mmol/L BUN 24 H (9-20) mg/dL POC Glucose (mg/dL) 101 H (75-99) mg/dL Albumin 2.8 L (3.5-5.0) g/dL Microbiology - Last 24 Hours (Table) 02/14/18 10:40 Blood Culture - Preliminary Blood No Growth after 24 hours Assessment and Plan Plan: Impression: 1. Recurrent seizures 2. Altered mental status 3. Chronic pain syndrome 4. Osteomyelitis Recommendation: Patient has made significant improvement since being placed on Keppra. Computed tomography scan of the brain showed no acute intracranial abnormality. Continue Keppra 750 twice a day. Keppra can be switched to oral when patient is taking regular diet. EEG was done and results are pending. Continue medical management as well as infectious disease management. Continue neurological checks. Continue seizure precautions. Patient can follow up in the office after discharge for further neurological evaluation and treatment options. I will continue to follow with you. Further recommendations to follow. I performed an examination of the patient and discussed the management with the DEPARTMENT COORDINATOR. I have reviewed the DEPARTMENT COORDINATOR notes and agree with the findings and plan of care.
--- NOTE | 2018-02-15 18:52 | EEG ---
ELECTROENCEPHALOGRAM REPORT DATE OF SERVICE: 02/15/2018. REASON FOR TESTING: Seizure. CURRENT ANTIEPILEPTIC MEDICATION: Keppra. DESCRIPTION OF THE PROCEDURE: This EEG was performed using a 21 channel digital electroencephalograph, following international 10-20 system. DESCRIPTION OF THE RECORDING: From the beginning of the tracing, and with patient's eyes closed, the background rhythm was mostly consisting of 6-7 Hz theta frequency in the posterior occipital leads. No obvious asymmetry is seen. Photic stimulation was performed with a minimal driving response seen. No pathological waves were elicited. Occasional sharp wave activity is seen. Hyperventilation was not performed. The patient remains awake throughout the tracing. Occasional movement and muscle artifacts are seen. His EKG lead showed a regular rate and rhythm. INTERPRETATION: This awake EEG is abnormal due to the presence of generalized slowing of the background rhythm, mostly in the theta range. This is consistent with mild encephalopathy. Occasional sharp wave activity was also seen, consistent with a reduced seizure threshold. No generalized epileptic discharges are seen. Clinical correlation is recommended. MMALAINA / IJN: [id number] /
[2018-02-15 20:42] LABS: Glucose,Whole Blood 51 mg/dL (75-99)
[2018-02-15 20:56] LABS: Glucose,Whole Blood 58 mg/dL (75-99)
[2018-02-15 21:13] LABS: Glucose,Whole Blood 72 mg/dL (75-99)
[2018-02-15 21:37] LABS: Glucose,Whole Blood 93 mg/dL (75-99)
[2018-02-15] MEDS: ATORVASTATIN 20 MG TAB PO SCH (21:49)
[2018-02-16] MEDS: SODIUM CHLORIDE 0.9% 1,000 ML IV SCH ×2 (05:34→16:30)
[2018-02-16 07:41] LABS: Glucose,Whole Blood 122 mg/dL (75-99)
[2018-02-16] MEDS: INSULIN ASPART 100 UNIT/ML 1 ML 10 ML VIAL SQ SCH ×4 (08:34→23:36)
[2018-02-16] MEDS: LISINOPRIL 5 MG TAB PO SCH (08:42)
[2018-02-16] MEDS: METOPROLOL TARTRATE 25 MG TAB PO SCH ×2 (08:42→23:43)
[2018-02-16] MEDS: amLODIPine 5 MG TAB PO SCH (08:42)
[2018-02-16] MEDS: APIXABAN 5 MG TAB PO SCH ×2 (08:42→23:43)
[2018-02-16] MEDS: FERROUS SULFATE 325 MG TAB PO SCH (08:42)
[2018-02-16] MEDS: PANTOPRAZOLE 40 MG TABLET PO SCH (08:42)
[2018-02-16] MEDS: FINASTERIDE 5 MG TAB PO SCH (08:42)
[2018-02-16] MEDS: LORATADINE 10 MG TAB PO SCH (08:43)
[2018-02-16] MEDS: DILTIAZEM CD 120 MG CAP.ER.24H PO SCH (08:44)
[2018-02-16] MEDS: REPAGLINIDE 1 MG TAB PO SCH ×3 (08:44→17:39)
[2018-02-16] MEDS: SULFAMETHOX-TMP 200-40MG/5ML 20 ML CUP PO SCH (08:44)
[2018-02-16] MEDS: TETRACYCLINE 500 MG PO SCH ×2 (08:46→23:48)
[2018-02-16] MEDS: ZINC SULFATE 220 MG CAP PO SCH (08:46)
[2018-02-16] MEDS: levETIRAcetam IV 750 MG in SODIUM CHLORIDE 0.9% 100 ML IVPB SCH ×2 (08:49→23:44)
[2018-02-16 09:01] LABS: Basophils % (A) 0 %; Eosinophils # (A) 0.2 k/uL (0-0.7); Eosinophils % (A) 3 %; HCT 23.9 % (39.0-53.0); HGB 7.6 gm/dL (13.0-17.5); Hypochromasia Slight; Lymphocytes # (A) 0.6 k/uL (1.0-4.8); Lymphocytes % (A) 10 %; MCHC 31.6 g/dL (31.0-37.0); MCV 88.6 fL (80.0-100.0); Mean Platelet Volume 6.9; Monocytes # (A) 0.4 k/uL (0-1.0); Monocytes % (A) 7 %; Neutrophils # (A) 4.1 k/uL (1.3-7.7); Neutrophils % (A) 77 %; Platelet Count 222 k/uL (150-450); RDW 14.8 % (11.5-15.5); WBC 5.3 k/uL (3.8-10.6)
[2018-02-16 09:09] LABS: ALT 26 U/L (21-72); AST 18 U/L (17-59); Albumin 2.6 g/dL (3.5-5.0); Alkaline Phosphatase 71 U/L (38-126); Anion Gap 5 mmol/L; Blood Urea Nitrogen 25 mg/dL (9-20); Calcium 8.4 mg/dL (8.4-10.2); Carbon Dioxide 24 mmol/L (22-30); Chloride 110 mmol/L (98-107); Glucose 81 mg/dL (74-99); Potassium 4.1 mmol/L (3.5-5.1); Sodium 139 mmol/L (137-145); Total Bilirubin 0.1 mg/dL (0.2-1.3); Total Protein 6.1 g/dL (6.3-8.2)
[2018-02-16] MEDS: MULTIVITAMINS, THERA 1 EACH TAB PO SCH (09:09)
[2018-02-16 11:58] LABS: Glucose,Whole Blood 81 mg/dL (75-99)
--- NOTE | 2018-02-16 12:15 | P.PN ---
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 Patients daughter is at the bedside and reports patient has "not been himself". She reports he has been agitated and pulled himself out of bed a few days ago onto the floor. She states he was shaking his upper extremities uncontrollably and then would stop and have a glazed over look on his face and was confused afterwards. She does report that the patient has been awake for four days straight and has not slept. Chest x-ray completed in the emergency room was negative for an acute cardiopulmonary process. CT of the brain revealed mild periventricular white matter ischemic changes. Laboratory data upon admission reveals white count 5.0. Hemoglobin 9.3. Platelet count 251. Sodium 138. Potassium 4.8. BUN 20. Creatinine 0.82. Glucose 116. Magnesium 2.0 Urinalysis reveals: Trace protein, small blood, small leukocyte esterase, RBC 20 , WBC 4 The patient was admitted to the hospital under the care of Dr. Lopez. Consultations were placed to neurology. 02/16/2018 Patient seen and examined at the bedside with Dr. Lopez. Patient is awake and alert. Mentation has improved since yesterday. Patient had an EEG completed which did not reveal clear evidence of seizure activity but did reveal decreased seizure threshold. He remains on Keppra. No further seizure activity has been witnessed. He appears to be back to his baseline and anticipate discharge home tomorrow. PHYSICAL EXAM: GENERAL: This is a 62-year-old male in no apparent distress at the time of examination. Patient is lethargic HEENT: Head is atraumatic, normocephalic. Pupils are equal, round, and reactive to light. Sclerae anicteric. Conjunctivae are clear. Mucus membranes of the mouth are moist. Neck is supple. RESPIRATORY: Clear to auscultation.. No wheezes, rales, or rhonchi. No use of accessory muscles. Patient maintaining oxygen saturation greater than 92%. No chest wall tenderness is noted on palpation or with deep breathing. CARDIOVASCULAR: Regular rate and rhythm. S1 and S2 noted. No systolic or diastolic murmur auscultated. No JVD noted. No S3 or S4 noted. GASTROINTESTINAL: No distention noted. Abdomen soft and round. Normal active bowel sounds auscultated x 4 quadrants. Colostomy present. GI: Suprapubic catheter noted with clear yellow urine. INTEGUMENTARY: Stage IV wound to coccyx. No cyanosis. No jaundice. No rashes noted. No cellulitis noted. EXTREMITIES: 2+ peripheral pulses. No evidence of peripheral edema. NEUROLOGIC: Patient without sensation or motor activity of lower extremities secondary to paraplegia. No tremors or seizure activity noted during examination. Patient remains lethargic. Patient oriented to self. Stated he was in a hospital but unable to correctly name hospital. ASSESSMENT: Altered mental status and abnormal involuntary movements of upper extremities, suspect seizure activity per neurology History of laminectomy, February 2017 Paraplegia, s/p laminectomy History of three previous back surgeries prior to laminectomy in 2016 History of stage IV coccyx wound, present on admission, with hx of multiple antibiotic therapies, wound vac multiple times, and hyperbaric oxygen treatments History of suprapubic catheter insertion and colostomy, in an attempt to keep wound clean and improve healing Neurogenic bladder Osteomyelitis of lumbar spine Diabetes mellitus, type II Hypertension Hyperlipidemia History of bilateral DVT History of Guillain-Suazo syndrome History of MRSA, coccyx wound History of VRE, coccyx wound PLAN: Neurology on consult. Appreciate recommendations and input Seizure precautions Patient has been following with Dr. Lopez weekly in the wound center and managing antibiotics and wound care Continue antibiotics: Bactrim and tetracycline Daily dressing changes. Begin medihoney daily to wound. Patient must be on an auto-rotation bed, not just a pressure reduction mattress. Per Dr. Lopez, patient is to be transferred to the ICU for auto- rotation bed. Patient is tolerating PO intake during the day. Stop around the clock tube feeding. Resume tube feeding at night only as patient was doing prior to hospitalization Home meds as appropriate Monitor labs GI prophylaxis: Protonix 40 mg PO Daily DVT prophylaxis: Eliquis 5 mg by mouth twice a day Monitor vital signs and address as appropriate Discharge planning: Patient to return home when stable. Patients spouse cares for him and also has home care. Further recommendations pending patient's course Anticipate discharge home tomorrow Objective - Vital Signs Vital signs: Vital Signs Temp 99.0 F 02/16/18 07:00 Pulse 74 02/16/18 08:00 Resp 20 02/16/18 08:00 BP 111/58 02/16/18 07:00 Pulse Ox 98 02/16/18 07:00 Intake & Output 02/15/18 02/16/18 02/16/18 18:59 06:59 18:59 Output Total 1100 400 600 Balance -1100 -400 -600 Weight 97 kg Output: Urine 300 400 Stool 800 600 Other: Voiding Method Indwelling Catheter Indwelling Catheter Indwelling Catheter - Labs CBC & Chem 7: 02/16/18 08:24 02/16/18 08:24 Labs: Abnormal Lab Results - Last 24 Hours (Table) 02/15/18 02/15/18 02/15/18 Range/Units 20:40 20:54 21:12 RBC (4.30-5.90) m/uL Hgb (13.0-17.5) gm/dL Hct (39.0-53.0) % Lymphocytes # (1.0-4.8) k/uL Chloride (98-107) mmol/L BUN (9-20) mg/dL POC Glucose (mg/dL) 51 L 58 L 72 L (75-99) mg/dL Total Bilirubin (0.2-1.3) mg/dL Total Protein (6.3-8.2) g/dL Albumin (3.5-5.0) g/dL 02/16/18 02/16/18 02/16/18 Range/Units 07:32 08:24 08:24 RBC 2.70 L (4.30-5.90) m/uL Hgb 7.6 L (13.0-17.5) gm/dL Hct 23.9 L (39.0-53.0) % Lymphocytes # 0.6 L (1.0-4.8) k/uL Chloride 110 H (98-107) mmol/L BUN 25 H (9-20) mg/dL POC Glucose (mg/dL) 122 H (75-99) mg/dL Total Bilirubin 0.1 L (0.2-1.3) mg/dL Total Protein 6.1 L (6.3-8.2) g/dL Albumin 2.6 L (3.5-5.0) g/dL Microbiology - Last 24 Hours (Table) 02/14/18 10:40 Blood Culture - Preliminary Blood No Growth after 24 hours
[2018-02-16] MEDS ORDERED: VANCOMYCIN IV PER PHARMACY 1 EACH MISC MISCELLANE PRN (12:58)
[2018-02-16] MEDS: VANCOMYCIN 1,750 MG in SODIUM CHLORIDE 0.9% 500 ML 500 ML IVPB SCH (15:43)
[2018-02-16] MEDS ORDERED: cefTRIAXone 2,000 MG in SODIUM CHLORIDE 0.9% 100 ML IVPB SCH (16:00)
[2018-02-16 17:58] LABS: Glucose,Whole Blood 64 mg/dL (75-99)
[2018-02-16 18:42] LABS: Glucose,Whole Blood 67 mg/dL (75-99)
[2018-02-16 18:42] LABS: Glucose,Whole Blood 85 mg/dL (75-99)
[2018-02-16 20:01] LABS: Hemoglobin A1C 5.1 % (4.0-6.0)
--- NOTE | 2018-02-16 23:39 | P.CONS ---
History of Present Illness - Reason for Consult Consult date: 02/16/18 - Chief Complaint altered mental status - History of Present Illness This is a 62-year-old white male patient with diabetes. He underwent his fourth lumbar surgical repair in February 2017. He was debilitated due to his surgery and developed paralysis and paraplegia. During his disability at [facility], he developed a pressure ulcer to coccyx. This wound had worsened. He has been in and out of the hospital several times. He's been debrided and followed by Dr. Solomon previously. He's been treated with Santyl, Dakin's, and most recently with [facility] to the wound. He's had a wound VAC several times. He was brought in today via ambulance as he is unable to support himself in a wheelchair. He's been unable to participate in any physical therapy due to his wound. He already had a suprapubic catheter and a colostomy to keep the wound clean during an admission to [facility]. He's been on several rounds of antibiotics for UTIs, but has no recollection of being treated for the wound or a wound infection with antibiotics. The patient's was concerned that he continue to have an alteration of his mental status over the last few days before he was brought in the hospital. With his worsening mental status and some other activity changes in the days before admission which included falling out of bed and twitching of his face and arms he presented to the emergency center. She's been seen by neurology and Keppra has been started and apparently is no improvement of his status. No further seizure-like activities been noted. He is arousable. He does appear to recognize me but is not able to state my name. He does seem comfortable at this time. No further information is available from the patient. Review of Systems ROS unobtainable: due to mental status Past Medical History Past Medical History: Diabetes Mellitus, Deep Vein Thrombosis (DVT), GERD/Reflux , Hyperlipidemia, Hypertension, Prostate Disorder Additional Past Medical History / Comment(s): DVT B/L LE, anxiety/depression, difficulty sleeping,history of osteomeylitis- coccyx wound has had hyerbaric tx and wound vac. currently has coccyx wound goes to [facility] every thurd at 9am.,uti' s. 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 Paraplegia SINCE LAMINECTOMY FEB 15, 2017PARALIZED WAIST DOWN SINCE LAMINECTOMY FEB 15, 2017; abd hernia. per "pt gets tube feeding but eats 3 meals a day but carefull with thin liquids or any tough meat. crush all meds put thru peg tube" History of Any Multi-Drug Resistant Organisms: MRSA, VRE Year Discovered:: 01/12/18 MRSA; 07/28/17 VRE MDRO Source:: Hip-MRSA & VRE Past Surgical History: Back Surgery, Bowel Resection, Coronary Bypass/CABG, Heart Catheterization Additional Past Surgical History / Comment(s): LAMINECTOMY 02/15/17-has had total of 4 sx, lt arm picc line-since removed. COLONOSCOPY, 5 vessel cabg. COLOSTOMY(was done d/t non healing coccyx wound. SUpra PUBIC CATH (changed last 02-11-18), picc line-since removed. peg tube. PICC Line Past Anesthesia/Blood Transfusion Reactions: Previous Problems w/ Anesthesia Additional Past Anesthesia/Blood Transfusion Reaction / Comm: SLOW TO COME OUT OF ANESTHESIA AFTER LAST PROCEDURE. blood transfusion-no reaction Past Psychological History: Anxiety, Depression Additional Psychological History / Comment(s): pt lives at home w/spouse. has [facility] home care. has hospital bed/air mattress, temitope lift but stated pt is currently bedridden -not to sit in chair d/t wounds coccyx/buttocks, turn every 2 hours(per ) Smoking Status: Former smoker Past Alcohol Use History: Occasional Additional Past Alcohol Use History / Comment(s): started smoking at age 17 and QUIT SMOKING cigarettes 1992-started smoking cigars and , QUIT CIGARS 2009, no alcohol now Past Drug Use History: None Reported - Past Family History Brother(s) Family Medical History: Cancer Mother Additional Family Medical History / Comment(s): emphysema Father Additional Family Medical History / Comment(s): emphysema Medications and Allergies Home Medications and Allergies Comment(s): Current Medications Hydrocodone Bitart/Acetaminophen ([place] 7.5-325) 1 each PO Q6HR PRN PRN Reason: Pain Amlodipine Besylate (Norvasc) 5 mg PO DAILY [facility] Last Admin: 02/16/18 08:42 Dose: 5 mg Apixaban (Eliquis) 5 mg PO BID [facility] Last Admin: 02/16/18 08:42 Dose: 5 mg Atorvastatin Calcium (Lipitor) 20 mg PO HS [facility] Last Admin: 02/15/18 21:49 Dose: 20 mg Diltiazem HCl (Cardizem Cd) 120 mg PO DAILY [facility] Last Admin: 02/16/18 08:44 Dose: 120 mg Ferrous Sulfate (Feosol) 325 mg PO DAILY [facility] Last Admin: 02/16/18 08:42 Dose: 325 mg Finasteride (Proscar) 5 mg PO DAILY [facility] Last Admin: 02/16/18 08:42 Dose: 5 mg Sodium Chloride (Saline 0.9%) 1,000 mls @ 80 mls/hr IV .[id number] [facility] Last Admin: 02/16/18 16:30 Dose: 80 mls/hr Levetiracetam 750 mg/ Sodium (Chloride) 107.5 mls @ 400 mls/hr IVPB Q12HR [facility] Last Admin: 02/16/18 08:49 Dose: 400 mls/hr Ceftriaxone Sodium 2,000 mg/ (Sodium Chloride) 100 mls @ 100 mls/hr IVPB Q24H [facility] Last Admin: 02/16/18 18:44 Dose: 100 mls/hr Vancomycin HCl 1,750 mg/ (Sodium Chloride) 500 mls @ 167 mls/hr IVPB Q12HR@0200 ,1400 [facility] Last Admin: 02/16/18 15:43 Dose: 167 mls/hr Insulin Aspart (Novolog) 0 unit SQ ACHS [facility]; Protocol Last Admin: 02/16/18 17:39 Dose: Not Given Lisinopril (Zestril) 5 mg PO DAILY [facility] Last Admin: 02/16/18 08:42 Dose: 5 mg Loratadine (Claritin) 10 mg PO DAILY [facility] Last Admin: 02/16/18 08:43 Dose: 10 mg Metoprolol Tartrate (Lopressor) 25 mg PO BID [facility] Last Admin: 02/16/18 08:42 Dose: 25 mg Miscellaneous Information (Pharmacy To Dose Iv Vancomycin) 1 each MISCELLANE DIRECTED PRN PRN Reason: Per Protocol Multivitamins (Theragran) 1 each PO DAILY [facility] Last Admin: 02/16/18 09:09 Dose: 1 each Naloxone HCl (Narcan) 0.2 mg IV Q2M PRN PRN Reason: Opioid Reversal Tetracycline 500mg 500 mg PO BID [facility] Last Admin: 02/16/18 08:46 Dose: Not Given Pantoprazole Sodium (Protonix) 40 mg PO AC-BRKFST [facility] Last Admin: 02/16/18 08:42 Dose: 40 mg Repaglinide (Prandin) 2 mg PO AC-TID [facility] Last Admin: 02/16/18 17:39 Dose: Not Given Zinc Sulfate (Orazinc) 220 mg PO DAILY [facility] Last Admin: 02/16/18 08:46 Dose: 220 mg Home Medications Medication Instructions Recorded Confirmed Type Diltiazem Cd [Cardizem Cd] 120 mg PO DAILY 09/21/16 02/14/18 History Metoprolol Tartrate [Lopressor] 25 mg PO BID 09/21/16 02/14/18 History Apixaban [Eliquis] 5 mg PO BID 07/27/17 02/14/18 History Atorvastatin [Lipitor] 20 mg PO HS 07/27/17 02/14/18 History Finasteride [Proscar] 5 mg PO DAILY 07/27/17 02/14/18 History HYDROcodone/APAP 7.5-325MG [[place] 1 tab PO Q6HR PRN 07/27/17 02/14/18 History 7.5-325] Insulin Glargine [Lantus] 40 unit SQ HS PRN 07/27/17 02/14/18 History Loratadine [Claritin] 10 mg PO DAILY 07/27/17 02/14/18 History Multivitamins, Thera [Multivitamin 1 tab PO DAILY 07/27/17 02/14/18 History (formulary)] Ferrous Sulfate [Feosol] 325 mg PO DAILY 10/03/17 02/14/18 History Lisinopril [Prinivil] 5 mg PO DAILY 10/03/17 02/14/18 History Pantoprazole Sodium 40 mg PO DAILY 10/03/17 02/14/18 History Repaglinide [Prandin] 2 mg PO AC-TID 10/03/17 02/14/18 History Zinc 25 mg PO DAILY 10/03/17 02/14/18 History amLODIPine [Norvasc] 5 mg PO DAILY 10/03/17 02/14/18 History Sulfamethox-Tmp 200-40Mg/5Ml 20 ml PO Q12HR 02/09/18 02/14/18 History [Bactrim Suspension] Tetracycline HCl 500 mg PO BID 02/09/18 02/14/18 History Allergies Allergy/AdvReac Type Severity Reaction Status Date / Time No Known Allergies Allergy Verified 02/14/18 11:10 Physical Exam Vitals: Vital Signs Temp Pulse Resp BP Pulse Ox 02/16/18 15:44 20 02/16/18 15:00 97.0 F L 53 L 16 106/47 97 02/16/18 08:00 74 20 02/16/18 07:00 99.0 F 74 20 111/58 98 Intake and Output 02/16/18 02/16/18 02/17/18 14:59 22:59 06:59 Output Total 600 Balance -600 Output: Stool 600 Other: Voiding Method Indwelling Catheter Indwelling Catheter Weight 97 kg 62-year-old male who has confusion and his profound debility with paraparesis. Is comfortable at this time. HEENT: Anicteric conjunctiva are pink and moist nasal mucosa grossly intact without significant lesions, there is no thrush. Neck: The neck is supple without significant lymphadenopathy or thyromegaly. Lungs: symmetrical air entry is noted with no dullness or egophony Heart: Regular rate and rhythm with an audible S1-S2, no S3 no S4. There is no significant murmur click or rub, PMI was nondisplaced. Abdomen: Positive bowel sounds soft and nontender without palpable masses or organomegaly. There was no guarding or rebound.diverting colostomy and suprapubic catheter remain in place Extremities: The upper extremities have symmetric pulses, no significant petechiae or telangiectasia. No splinter hemorrhages were noted. extremities have evidence of the wasting of the musculature and some chronic edema. The coccyx shows evidence of the stage IV pressure ulceration that is present on admission, measuring at 2.7 x 1.5 x 0.2 cm. There is scant drainage. The patient has no sensation in the site is not painful Neuro: the patient is arousable, poor historian, has paraparesis. Results CBC & Chem 7: 02/16/18 08:24 02/16/18 08:24 Labs: Abnormal Lab Results - Last 24 Hours (Table) 02/16/18 02/16/18 02/16/18 Range/Units 07:32 08:24 08:24 RBC 2.70 L (4.30-5.90) m/uL Hgb 7.6 L (13.0-17.5) gm/dL Hct 23.9 L (39.0-53.0) % Lymphocytes # 0.6 L (1.0-4.8) k/uL Chloride 110 H (98-107) mmol/L BUN 25 H (9-20) mg/dL POC Glucose (mg/dL) 122 H (75-99) mg/dL Total Bilirubin 0.1 L (0.2-1.3) mg/dL Total Protein 6.1 L (6.3-8.2) g/dL Albumin 2.6 L (3.5-5.0) g/dL Prealbumin (18.0-42.0) mg/dL 02/16/18 02/16/18 02/16/18 Range/Units 08:24 17:56 18:13 RBC (4.30-5.90) m/uL Hgb (13.0-17.5) gm/dL Hct (39.0-53.0) % Lymphocytes # (1.0-4.8) k/uL Chloride (98-107) mmol/L BUN (9-20) mg/dL POC Glucose (mg/dL) 64 L 67 L (75-99) mg/dL Total Bilirubin (0.2-1.3) mg/dL Total Protein (6.3-8.2) g/dL Albumin (3.5-5.0) g/dL Prealbumin 12.0 L (18.0-42.0) mg/dL Microbiology - Last 24 Hours (Table) 02/14/18 10:40 Blood Culture - Preliminary Blood No Growth after 48 hours Laboratory Results WBC 5.3 k/uL (3.8-10.6) 02/16/18 08:24 RBC 2.70 m/uL (4.30-5.90) L 02/16/18 08:24 Hgb 7.6 gm/dL (13.0-17.5) L 02/16/18 08:24 Hct 23.9 % (39.0-53.0) L 02/16/18 08:24 MCV 88.6 fL (80.0-100.0) 02/16/18 08:24 MCH 28.0 pg (25.0-35.0) 02/16/18 08:24 MCHC 31.6 g/dL (31.0-37.0) 02/16/18 08:24 RDW 14.8 % (11.5-15.5) 02/16/18 08:24 Plt Count 222 k/uL (150-450) 02/16/18 08:24 Neutrophils % 77 % 02/16/18 08:24 Lymphocytes % 10 % 02/16/18 08:24 Monocytes % 7 % 02/16/18 08:24 Eosinophils % 3 % 02/16/18 08:24 Basophils % 0 % 02/16/18 08:24 Neutrophils # 4.1 k/uL (1.3-7.7) 02/16/18 08:24 Lymphocytes # 0.6 k/uL (1.0-4.8) L 02/16/18 08:24 Monocytes # 0.4 k/uL (0-1.0) 02/16/18 08:24 Eosinophils # 0.2 k/uL (0-0.7) 02/16/18 08:24 Basophils # 0.0 k/uL (0-0.2) 02/16/18 08:24 Hypochromasia Slight 02/16/18 08:24 PT 10.8 sec (9.0-12.0) 02/14/18 10:40 INR 1.0 (<1.2) 02/14/18 10:40 APTT 26.6 sec (22.0-30.0) 02/14/18 10:40 Sodium 139 mmol/L (137-145) 02/16/18 08:24 Potassium 4.1 mmol/L (3.5-5.1) 02/16/18 08:24 Chloride 110 mmol/L (98-107) H 02/16/18 08:24 Carbon Dioxide 24 mmol/L (22-30) 02/16/18 08:24 Anion Gap 5 mmol/L 02/16/18 08:24 BUN 25 mg/dL (9-20) H 02/16/18 08:24 Creatinine 0.89 mg/dL (0.66-1.25) 02/16/18 08:24 Est GFR (CKD-EPI)AfAm >90 (>60 ml/min/1.73 sqM) 02/16/18 08:24 Est GFR (CKD-EPI)NonAf >90 (>60 ml/min/1.73 sqM) 02/16/18 08:24 Glucose 81 mg/dL (74-99) 02/16/18 08:24 POC Glucose (mg/dL) 85 mg/dL (75-99) 02/16/18 18:38 POC Glu [facility]ox[facility] Specialist Nyla Sepulveda 02/16/18 18:[address] Glu mg/dL 100 02/16/18 08:24 Hemoglobin A1c 5.1 % (4.0-6.0) 02/16/18 08:24 Calcium 8.4 mg/dL (8.4-10.2) 02/16/18 08:24 Magnesium 2.0 mg/dL (1.6-2.3) 02/14/18 10:40 Total Bilirubin 0.1 mg/dL (0.2-1.3) L 02/16/18 08:24 AST 18 U/L (17-59) 02/16/18 08:24 ALT 26 U/L (21-72) 02/16/18 08:24 Alkaline Phosphatase 71 U/L (38-126) 02/16/18 08:24 Ammonia 11 umol/L (<30) 02/14/18 10:40 Total Creatine Kinase 334 U/L (55-170) H 02/14/18 10:40 CK-MB (CK-2) 4.8 ng/mL (0.0-2.4) H 02/14/18 10:40 CK-MB (CK-2) Rel Index 1.4 02/14/18 10:40 Troponin I <0.012 ng/mL (0.000-0.034) 02/14/18 10:40 Total Protein 6.1 g/dL (6.3-8.2) L 02/16/18 08:24 Albumin 2.6 g/dL (3.5-5.0) L 02/16/18 08:24 Prealbumin 12.0 mg/dL (18.0-42.0) L 02/16/18 08:24 Urine Color Yellow 02/14/18 10:50 Urine Appearance Clear (Clear) 02/14/18 10:50 Urine pH 5.5 (5.0-8.0) 02/14/18 10:50 Ur Specific [place] 1.016 (1.001-1.035) 02/14/18 10:50 Urine Protein Trace (Negative) H 02/14/18 10:50 Urine Glucose (UA) Negative (Negative) 02/14/18 10:50 Urine Ketones Negative (Negative) 02/14/18 10:50 Urine Blood Small (Negative) H 02/14/18 10:50 Urine Nitrite Negative (Negative) 02/14/18 10:50 Urine Bilirubin Negative (Negative) 02/14/18 10:50 Urine Urobilinogen <2.0 mg/dL (<2.0) 02/14/18 10:50 Ur Leukocyte Esterase Small (Negative) H 02/14/18 10:50 Urine RBC 20 /hpf (0-5) H 02/14/18 10:50 Urine WBC 4 /hpf (0-5) 02/14/18 10:50 Urine Mucus Rare /hpf (None) H 02/14/18 10:50 Urine Opiates Screen Detected (NotDetected) H 02/14/18 10:50 Ur Oxycodone Screen Not Detected (NotDetected) 02/14/18 10:50 Urine Methadone Screen Not Detected (NotDetected) 02/14/18 10:50 Ur Propoxyphene Screen Not Detected (NotDetected) 02/14/18 10:50 Ur Barbiturates Screen Not Detected (NotDetected) 02/14/18 10:50 U Tricyclic Antidepress Not Detected (NotDetected) 02/14/18 10:50 Ur Phencyclidine Scrn Not Detected (NotDetected) 02/14/18 10:50 Ur Amphetamines Screen Not Detected (NotDetected) 02/14/18 10:50 U Methamphetamines Scrn Not Detected (NotDetected) 02/14/18 10:50 U Benzodiazepines Scrn Detected (NotDetected) H 02/14/18 10:50 Urine Cocaine Screen Not Detected (NotDetected) 02/14/18 10:50 U Marijuana (THC) Screen Not Detected (NotDetected) 02/14/18 10:50 Microbiology 02/14/18 10:40 Blood Blood Culture - Preliminary No Growth after 48 hours Comments: outpatient MRI of the pelvis confers ongoning osteomyelitis left sacroiliac area Assessment and Plan (1) Altered mental status Current Visit: No Status: Acute Code(s): R41.82 - ALTERED MENTAL STATUS, UNSPECIFIED SNOMED Code(s): 706321804 (2) Seizure Current Visit: Yes Status: Acute Code(s): R56.9 - UNSPECIFIED CONVULSIONS SNOMED Code(s): 22795126 (3) Pressure ulcer of coccygeal region, stage 4 Narrative/Plan: 62-year-old male presents to hospital with altered mental status and worsening over several days before admission. Also probably was having some jerking motions and actually pull himself out of bed onto the floor. His seamen neurology this concerns of seizures, is been loaded with Keppra improvementofhisstatus. Outpatient evaluation of the wound healing Center reveals evidence of a stage IV pressure ulceration, recent cultures are reviewed and constantly vancomycin and Rocephin are requested for treatment of the underlying process. Outpatient MRI confirms ongoing osteomyelitis. Is undergoing offloading, local wound care antibiotic therapy, unclear if she'll be able to have an IV at home. Current Visit: No Status: Chronic Code(s): L89.154 - PRESSURE ULCER OF SACRAL REGION, STAGE 4 SNOMED Code(s): 636767791
[2018-02-16] MEDS: ATORVASTATIN 20 MG TAB PO SCH (23:44)
[2018-02-17 02:16] LABS: Glucose,Whole Blood 73 mg/dL (75-99)
[2018-02-17 02:16] LABS: Glucose,Whole Blood 55 mg/dL (75-99)
[2018-02-17 02:16] LABS: Glucose,Whole Blood 74 mg/dL (75-99)
[2018-02-17 02:16] LABS: Glucose,Whole Blood 89 mg/dL (75-99)
[2018-02-17 02:16] LABS: Glucose,Whole Blood 61 mg/dL (75-99)
[2018-02-17 02:16] LABS: Glucose,Whole Blood 68 mg/dL (75-99)
[2018-02-17] MEDS: VANCOMYCIN 1,750 MG in SODIUM CHLORIDE 0.9% 500 ML 500 ML IVPB SCH (02:26)
[2018-02-17] MEDS: SODIUM CHLORIDE 0.9% 1,000 ML IV SCH (07:42)
[2018-02-17] MEDS: INSULIN ASPART 100 UNIT/ML 1 ML 10 ML VIAL SQ SCH ×2 (07:42→13:11)
[2018-02-17] MEDS: PANTOPRAZOLE 40 MG TABLET PO SCH (07:42)
[2018-02-17] MEDS: REPAGLINIDE 1 MG TAB PO SCH (07:43)
[2018-02-17 07:48] VITALS: BP 120/51; PULSE 56; RESP 20; TEMP 98.9
[2018-02-17] MEDS: LISINOPRIL 5 MG TAB PO SCH (08:02)
[2018-02-17] MEDS: MULTIVITAMINS, THERA 1 EACH TAB PO SCH (08:02)
[2018-02-17] MEDS: ZINC SULFATE 220 MG CAP PO SCH (08:02)
[2018-02-17] MEDS: LORATADINE 10 MG TAB PO SCH (08:02)
[2018-02-17] MEDS: FERROUS SULFATE 325 MG TAB PO SCH (08:02)
[2018-02-17] MEDS: METOPROLOL TARTRATE 25 MG TAB PO SCH (08:02)
[2018-02-17] MEDS: amLODIPine 5 MG TAB PO SCH (08:02)
[2018-02-17] MEDS: DILTIAZEM CD 120 MG CAP.ER.24H PO SCH (08:02)
[2018-02-17] MEDS: APIXABAN 5 MG TAB PO SCH (08:02)
[2018-02-17] MEDS: FINASTERIDE 5 MG TAB PO SCH (08:02)
[2018-02-17] MEDS: levETIRAcetam IV 750 MG in SODIUM CHLORIDE 0.9% 100 ML IVPB SCH (08:04)
[2018-02-17] MEDS: TETRACYCLINE 500 MG PO SCH (08:14)
[2018-02-17] MEDS ORDERED: LINEZOLID 600 MG TAB PO STA (09:40)
[2018-02-17] MEDS ORDERED: SULFAMETHOX-TMP 800-160MG 1 EACH TAB PO SCH (09:45)
[2018-02-17 12:52] LABS: Glucose,Whole Blood 105 mg/dL (75-99)
--- NOTE | 2018-02-17 13:54 | P.DS ---
Providers Date of admission: 02/15/18 11:38 Expected date of discharge: 02/17/18 Attending physician: Gilmer Lopez Consults: 02/14/18 15:08 Consult Physician Routine Consulting Provider: Antonio Mae Consult Reason/Comments: Psychosis Do you want consulting provider notified?: Yes 02/14/18 15:09 Consult Physician Routine Consulting Provider: Collins Patel Consult Reason/Comments: Altered mental status Do you want consulting provider notified?: Yes 02/15/18 14:48 Consult Physician Routine Consulting Provider: Laureano Cnacino Consult Reason/Comments: hx of stage IV coccyx wound, osteomyelitis Do you want consulting provider notified?: Yes Primary care physician: Gilmer Lopez Hospital Course: 62-year-old male with a past medical history significant for paraplegia after laminectomy in 2017, diabetes mellitus, hypertension, hyperlipidemia, 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 Patients daughter is at the bedside and reports patient has "not been himself". She reports he has been agitated and pulled himself out of bed a few days ago onto the floor. She states he was shaking his upper extremities uncontrollably and then would stop and have a glazed over look on his face and was confused afterwards. She does report that the patient has been awake for four days straight and has not slept. Chest x-ray completed in the emergency room was negative for an acute cardiopulmonary process. CT of the brain revealed mild periventricular white matter ischemic changes. Laboratory data upon admission reveals white count 5.0. Hemoglobin 9.3. Platelet count 251. Sodium 138. Potassium 4.8. BUN 20. Creatinine 0.82. Glucose 116. Magnesium 2.0 Urinalysis reveals: Trace protein, small blood, small leukocyte esterase, RBC 20 , WBC 4 The patient was admitted to the hospital under the care of Dr. Lopez. Consultations were placed to neurology. 02/16/2018 Patient seen and examined at the bedside with Dr. Lopez. Patient is awake and alert. Mentation has improved since yesterday. Patient had an EEG completed which did not reveal clear evidence of seizure activity but did reveal decreased seizure threshold. He remains on Keppra. No further seizure activity has been witnessed. He appears to be back to his baseline and anticipate discharge home tomorrow. 02/17/2018 Patients mentation is back to his baseline. He is awake and alert. No further seizure activity. Blood sugars have been running on the lower side. Prandin has been held by nursing. states they do not give it to the patient at home and he is diet controlled. Prandin will be discontinued upon discharge as well. Patient was evaluated by Dr. Cancino. Prescriptions for Bactrim and Linezolid were sent to the patients preferred pharmacy by Dr. Cancino. Prescription for Keppra 750 mg twice a day was also sent to patient's preferred pharmacy. He is stable for discharge home today. Discharge Diagnosis: Altered mental status and abnormal involuntary movements of upper extremities, secondary to seizure activity per neurology History of laminectomy, February 2017 Paraplegia, s/p laminectomy History of three previous back surgeries prior to laminectomy in 2016 History of stage IV coccyx wound, present on admission, with hx of multiple antibiotic therapies, wound vac multiple times, and hyperbaric oxygen treatments History of suprapubic catheter insertion and colostomy, in an attempt to keep wound clean and improve healing Neurogenic bladder Osteomyelitis of lumbar spine Diabetes mellitus, type II Hypertension Hyperlipidemia History of bilateral DVT History of Guillain-Suazo syndrome History of MRSA, coccyx wound History of VRE, coccyx wound Patient Condition at Discharge: Stable Plan - Discharge Summary Discharge Rx Participant: No New Discharge Prescriptions: New Linezolid 600 mg PO BID #60 tablet Sulfamethox-Tmp 800-160Mg [Bactrim DS 800-160 mg] 1 tab PO Q12HR #60 tab levETIRAcetam [Keppra] 750 mg PO BID #60 tab Continue Diltiazem Cd [Cardizem CD] 120 mg PO DAILY Metoprolol Tartrate [Lopressor] 25 mg PO BID Loratadine [Claritin] 10 mg PO DAILY HYDROcodone/APAP 7.5-325MG [[place] 7.5-325] 1 tab PO Q6HR PRN PRN Reason: Pain Finasteride [Proscar] 5 mg PO DAILY Atorvastatin [Lipitor] 20 mg PO HS Apixaban [Eliquis] 5 mg PO BID Multivitamins, Thera [Multivitamin (formulary)] 1 tab PO DAILY Ferrous Sulfate [Iron (65 MG Elemental)] 325 mg PO DAILY amLODIPine [Norvasc] 5 mg PO DAILY Zinc 25 mg PO DAILY Pantoprazole Sodium 40 mg PO DAILY Lisinopril [Prinivil] 5 mg PO DAILY Discontinued Insulin Glargine [Lantus] 40 unit SQ HS PRN PRN Reason: Blood Sugar - High Repaglinide [Prandin] 2 mg PO AC-TID Sulfamethox-Tmp 200-40Mg/5Ml [Bactrim Suspension] 20 ml PO Q12HR Tetracycline HCl 500 mg PO BID Discharge Medication List Diltiazem Cd [Cardizem CD] 120 mg PO DAILY 09/21/16 [History] Metoprolol Tartrate [Lopressor] 25 mg PO BID 09/21/16 [History] Apixaban [Eliquis] 5 mg PO BID 07/27/17 [History] Atorvastatin [Lipitor] 20 mg PO HS 07/27/17 [History] Finasteride [Proscar] 5 mg PO DAILY 07/27/17 [History] HYDROcodone/APAP 7.5-325MG [[place] 7.5-325] 1 tab PO Q6HR PRN 07/27/17 [History] Loratadine [Claritin] 10 mg PO DAILY 07/27/17 [History] Multivitamins, Thera [Multivitamin (formulary)] 1 tab PO DAILY 07/27/17 [History ] Ferrous Sulfate [Iron (65 MG Elemental)] 325 mg PO DAILY 10/03/17 [History] Lisinopril [Prinivil] 5 mg PO DAILY 10/03/17 [History] Pantoprazole Sodium 40 mg PO DAILY 10/03/17 [History] Zinc 25 mg PO DAILY 10/03/17 [History] amLODIPine [Norvasc] 5 mg PO DAILY 10/03/17 [History] Linezolid 600 mg PO BID #60 tablet 02/17/18 [Rx] Sulfamethox-Tmp 800-160Mg [Bactrim DS 800-160 mg] 1 tab PO Q12HR #60 tab [Rx] levETIRAcetam [Keppra] 750 mg PO BID #60 tab 02/17/18 [Rx] Follow up Appointment(s)/Referral(s): [facility], [NON-STAFF] - Collins Patel MD [STAFF PHYSICIAN] - 3 Weeks [facility] [[facility] - 1 Week Gilmer Lopez MD [Primary Care Provider] - 2 Weeks (Patient has an appointment scheduled in March ) Patient Instructions/Handouts: Dehydration (DC), Recurrent Seizures in Adults ( DC) Activity/Diet/Wound Care/Special Instructions: Diabetic diet. Glycerna 1.2 @ 40 ml/hr from 7pm to 7 am thru PEG tube. HOB elevated during feeds. Daily PEG site care and dressing change. Hagan to gravity, pericare every 8 hours. Colostomy supplies at home,continue routine care. Last changed 02/17/18 Wound care to coccyx daily and as needed with therahoney and gauze cover. Keep off coccyx wound, change position every 2 hours. Fall precautions. Seizure precautions.
[2018-02-18 00:49] LABS: Glucose,Whole Blood 81 mg/dL (75-99)
== END 2018-02-17 15:09 | disposition home health service (06) | DRG 100 ==
LOC: EC 10:17 → 4MS4W 15:06 → INTOOBSV 15:06 → OBSVTOIN 02-15 11:38
PROVIDERS: ADMIT Family Medicine; ATTEND Family Medicine
DX: G40.909 Epilepsy, unspecified, not intractable, without status epilepticus (principal); L89.154 Pressure ulcer of sacral region, stage 4; M46.26 Osteomyelitis of vertebra, lumbar region; G82.20 Paraplegia, unspecified; D64.9 Anemia, unspecified; E11.69 Type 2 diabetes mellitus with other specified complication; E78.5 Hyperlipidemia, unspecified; E86.0 Dehydration; F32.9 Major depressive disorder, single episode, unspecified; F41.9 Anxiety disorder, unspecified; G89.4 Chronic pain syndrome; I10 Essential (primary) hypertension; K21.9 Gastro-esophageal reflux disease without esophagitis; N31.9 Neuromuscular dysfunction of bladder, unspecified; R62.7 Adult failure to thrive; R74.8 Abnormal levels of other serum enzymes; E66.9 Obesity, unspecified; Z68.30 Body mass index [BMI] 30.0-30.9, adult; I25.10 Atherosclerotic heart disease of native coronary artery without angina pectoris; N42.9 Disorder of prostate, unspecified; Z74.01 Bed confinement status; Z79.01 Long term (current) use of anticoagulants; Z79.4 Long term (current) use of insulin; Z79.899 Other long term (current) drug therapy; Z95.1 Presence of aortocoronary bypass graft; Z93.3 Colostomy status; Z90.49 Acquired absence of other specified parts of digestive tract; Z87.891 Personal history of nicotine dependence; Z86.718 Personal history of other venous thrombosis and embolism; Z86.14 Personal history of Methicillin resistant Staphylococcus aureus infection; Z82.5 Family history of asthma and other chronic lower respiratory diseases; Z80.9 Family history of malignant neoplasm, unspecified; W06.XXXA Fall from bed, initial encounter
CPT/HCPCS: 36415; 70450; 71046; 80053; 80306; 81001; 82140; 82550; 82553; 83036; 83735; 84134; 84484; 85025; 85610; 85730; 87040; 93005; 95819; 96361; 96374; 96376; 99285

== ENCOUNTER 2018-03-07 13:18 | Inpatient (IN) | payer BC ==
[2018-03-07] MEDS ORDERED: SODIUM CHLORIDE 0.9% 1,000 ML IV ONE ×2 (13:21)
[2018-03-07] MEDS ORDERED: LORazepam 2 MG/ML INJ IV STA (13:26)
[2018-03-07] MEDS ORDERED: diphenhydrAMINE 50 MG/ML 1 ML VIAL IVP STA (13:27)
--- NOTE | 2018-03-07 13:28 | ED ---
General Adult HPI - General Stated complaint: altered mental status Time Seen by Provider: 03/07/18 13:21 Source: family, EMS, RN notes reviewed, old records reviewed Mode of arrival: EMS Limitations: altered mental status - History of Present Illness Initial comments: 62-year-old male presenting for worsening altered level of consciousness. Patient is paraplegic, bedbound. He's had history of seizure disorder, recently started on Keppra which was then switched of Vimpat. He has seen his neurologist and primary care physician. He follows regularly at the wound clinic for subclinical decubitus ulcer. Patient is coming by his was able to give history, there is been no vomiting or diarrhea. He said decreased by mouth intake and she has had increase feeding through his PEG tube. He has a colostomy and suprapubic catheter. No history of fever. Patient states he has been staring up at the ceiling up to 36 hours, not been sleeping well. Patient's paraplegia is from previous lumbar surgery. - Related Data Home Medications Medication Instructions Recorded Confirmed Metoprolol Tartrate [Lopressor] 12.5 mg PO BID 09/21/16 03/07/18 Apixaban [Eliquis] 5 mg PO BID 07/27/17 03/07/18 HYDROcodone/APAP 7.5-325MG [[place] 1 tab PO Q6HR PRN 07/27/17 03/07/18 7.5-325] Lisinopril [Prinivil] 5 mg PO DAILY 10/03/17 03/07/18 Pantoprazole Sodium 40 mg PO DAILY 10/03/17 03/07/18 amLODIPine [Norvasc] 5 mg PO DAILY 10/03/17 03/07/18 Acetaminophen [Tylenol Extra 1,000 mg PO Q6H PRN 03/07/18 03/07/18 Strength] Aspirin EC [Ecotrin Low Dose] 81 mg PO DAILY 03/07/18 03/07/18 Cetirizine HCl 10 mg PO DAILY 03/07/18 03/07/18 Lacosamide [Vimpat] 100 mg PO BID 03/07/18 03/07/18 Previous Rx's Medication Instructions Recorded Linezolid 600 mg PO BID #60 tablet 02/17/18 Sulfamethox-Tmp 800-160Mg [Bactrim 1 tab PO Q12HR #60 tab 02/17/18 DS 800-160 mg] levETIRAcetam [Keppra] 750 mg PO BID #60 tab 02/17/18 Allergies Allergy/AdvReac Type Severity Reaction Status Date / Time No Known Allergies Allergy Verified 03/07/18 13:46 Review of Systems ROS Statement: Those systems with pertinent positive or pertinent negative responses have been documented in the HPI. ROS Other: All systems not noted in ROS Statement are negative. Past Medical History Past Medical History: Diabetes Mellitus, Deep Vein Thrombosis (DVT), GERD/Reflux , Hyperlipidemia, Hypertension, Prostate Disorder Additional Past Medical History / Comment(s): DVT B/L LE, anxiety/depression, difficulty sleeping,history of osteomeylitis- coccyx wound has had hyerbaric tx and wound vac. currently has coccyx wound goes to [facility] every thurd at 9am.,uti' s. 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 Paraplegia SINCE LAMINECTOMY FEB 15, 2017PARALIZED WAIST DOWN SINCE LAMINECTOMY FEB 15, 2017; abd hernia. per "pt gets tube feeding but eats 3 meals a day but carefull with thin liquids or any tough meat. crush all meds put thru peg tube" History of Any Multi-Drug Resistant Organisms: MRSA, VRE Date of last positivie culture/infection: 01/12/18 MRSA; 07/28/17 VRE MDRO Source:: Hip-MRSA & VRE Past Surgical History: Back Surgery, Bowel Resection, Coronary Bypass/CABG, Heart Catheterization Additional Past Surgical History / Comment(s): LAMINECTOMY 02/15/17-has had total of 4 sx, lt arm picc line-since removed. COLONOSCOPY, 5 vessel cabg. COLOSTOMY(was done d/t non healing coccyx wound. SUpra PUBIC CATH (changed last 02-11-18), picc line-since removed. peg tube. PICC Line Past Anesthesia/Blood Transfusion Reactions: Previous Problems w/ Anesthesia Additional Past Anesthesia/Blood Transfusion Reaction / Comment(s): SLOW TO COME OUT OF ANESTHESIA AFTER LAST PROCEDURE. blood transfusion-no reaction Past Psychological History: Anxiety, Depression Smoking Status: Former smoker Past Alcohol Use History: Occasional Past Drug Use History: None Reported - Past Family History Brother(s) Family Medical History: Cancer Mother Additional Family Medical History / Comment(s): emphysema Father Additional Family Medical History / Comment(s): emphysema General Exam Limitations: altered mental status General appearance: lethargic Head exam: Present: atraumatic, normocephalic Eye exam: Present: normal appearance, PERRL ENT exam: Present: mucous membranes dry Neck exam: Present: normal inspection. Absent: tenderness, meningismus Respiratory exam: Present: normal lung sounds bilaterally, respiratory distress Cardiovascular Exam: Present: regular rate, normal rhythm GI/Abdominal exam: Present: soft, other (Colostomy, PEG tube, suprapubic catheter, no surrounding erythema). Absent: distended, tenderness Course Vital Signs 03/07/18 03/07/18 13:20 15:00 Temperature 97.6 F Pulse Rate 85 81 Respiratory 18 16 Rate Blood Pressure 142/86 138/79 O2 Sat by Pulse 99 99 Oximetry EKG Findings - EKG Comments: EKG Findings:: EKG: Normal sinus rhythm and LVH, rate of 84, OK interval 164, QRS duration 104, QTC 460, no ST segment elevation Medical Decision Making - Medical Decision Making 62-year-old male presenting with slow progression, worsening of mental status. Head CT obtained, no acute process, no intracranial hemorrhage. Chest x-ray negative for focal pneumonia. CBC shows some anemia, hemoglobin 9.4 which is baseline. Normal CMP, normal urinalysis. Patient was started on linezolid one week ago, concerned this may be worsening symptoms. Case is discussed with patient's primary care physician Dr. Lopez, he is familiar with this patient. Patient will be admitted at this time, neurology on consult. All medications held awaiting reevaluation. - Lab Data Result diagrams: 03/07/18 13:43 03/07/18 13:43 Lab Results 03/07/18 03/07/18 03/07/18 Range/Units 13:43 13:43 13:43 WBC 4.8 (3.8-10.6) k/uL RBC 3.51 L (4.30-5.90) m/uL Hgb 9.4 L (13.0-17.5) gm/dL Hct 29.5 L (39.0-53.0) % MCV 84.1 (80.0-100.0) fL MCH 26.8 (25.0-35.0) pg MCHC 31.9 (31.0-37.0) g/dL RDW 15.1 (11.5-15.5) % Plt Count 189 (150-450) k/uL Neutrophils % 79 % Lymphocytes % 12 % Monocytes % 6 % Eosinophils % 2 % Basophils % 1 % Neutrophils # 3.8 (1.3-7.7) k/uL Lymphocytes # 0.6 L (1.0-4.8) k/uL Monocytes # 0.3 (0-1.0) k/uL Eosinophils # 0.1 (0-0.7) k/uL Basophils # 0.0 (0-0.2) k/uL PT (9.0-12.0) sec INR (<1.2) APTT (22.0-30.0) sec VBG pH (7.31-7.41) VBG pCO2 (37-51) mmHg VBG HCO3 (24-28) mmol/L Sodium 138 (137-145) mmol/L Potassium 4.4 (3.5-5.1) mmol/L Chloride 105 (98-107) mmol/L Carbon Dioxide 27 (22-30) mmol/L Anion Gap 6 mmol/L BUN 16 (9-20) mg/dL Creatinine 0.88 (0.66-1.25) mg/dL Est GFR (CKD-EPI)AfAm >90 (>60 ml/min/1.73 sqM) Est GFR (CKD-EPI)NonAf >90 (>60 ml/min/1.73 sqM) Glucose 130 H (74-99) mg/dL Plasma Lactic Acid Stanley (0.7-2.0) mmol/L Calcium 9.0 (8.4-10.2) mg/dL Total Bilirubin 0.3 (0.2-1.3) mg/dL AST 25 (17-59) U/L ALT 35 (21-72) U/L Alkaline Phosphatase 98 (38-126) U/L Total Creatine Kinase 47 L (55-170) U/L CK-MB (CK-2) 2.9 H (0.0-2.4) ng/mL CK-MB (CK-2) Rel Index 6.2 Troponin I <0.012 (0.000-0.034) ng/mL Total Protein 7.3 (6.3-8.2) g/dL Albumin 3.2 L (3.5-5.0) g/dL Urine Color Urine Appearance (Clear) Urine pH (5.0-8.0) Ur Specific [place] (1.001-1.035) Urine Protein (Negative) Urine Glucose (UA) (Negative) Urine Ketones (Negative) Urine Blood (Negative) Urine Nitrite (Negative) Urine Bilirubin (Negative) Urine Urobilinogen (<2.0) mg/dL Ur Leukocyte Esterase (Negative) Urine WBC (0-5) /hpf Amorphous Sediment (None) /hpf Urine Mucus (None) /hpf Urine Opiates Screen (NotDetected) Ur Oxycodone Screen (NotDetected) Urine Methadone Screen (NotDetected) Ur Propoxyphene Screen (NotDetected) Ur Barbiturates Screen (NotDetected) U Tricyclic Antidepress (NotDetected) Ur Phencyclidine Scrn (NotDetected) Ur Amphetamines Screen (NotDetected) U Methamphetamines Scrn (NotDetected) U Benzodiazepines Scrn (NotDetected) Urine Cocaine Screen (NotDetected) U Marijuana (THC) Screen (NotDetected) 03/07/18 03/07/18 03/07/18 Range/Units 13:43 13:43 13:43 WBC (3.8-10.6) k/uL RBC (4.30-5.90) m/uL Hgb (13.0-17.5) gm/dL Hct (39.0-53.0) % MCV (80.0-100.0) fL MCH (25.0-35.0) pg MCHC (31.0-37.0) g/dL RDW (11.5-15.5) % Plt Count (150-450) k/uL Neutrophils % % Lymphocytes % % Monocytes % % Eosinophils % % Basophils % % Neutrophils # (1.3-7.7) k/uL Lymphocytes # (1.0-4.8) k/uL Monocytes # (0-1.0) k/uL Eosinophils # (0-0.7) k/uL Basophils # (0-0.2) k/uL PT 11.1 (9.0-12.0) sec INR 1.0 (<1.2) APTT 28.8 (22.0-30.0) sec VBG pH 7.37 (7.31-7.41) VBG pCO2 47 (37-51) mmHg VBG HCO3 27 (24-28) mmol/L Sodium (137-145) mmol/L Potassium (3.5-5.1) mmol/L Chloride (98-107) mmol/L Carbon Dioxide (22-30) mmol/L Anion Gap mmol/L BUN (9-20) mg/dL Creatinine (0.66-1.25) mg/dL Est GFR (CKD-EPI)AfAm (>60 ml/min/1.73 sqM) Est GFR (CKD-EPI)NonAf (>60 ml/min/1.73 sqM) Glucose (74-99) mg/dL Plasma Lactic Acid Stanley 0.9 (0.7-2.0) mmol/L Calcium (8.4-10.2) mg/dL Total Bilirubin (0.2-1.3) mg/dL AST (17-59) U/L ALT (21-72) U/L Alkaline Phosphatase (38-126) U/L Total Creatine Kinase (55-170) U/L CK-MB (CK-2) (0.0-2.4) ng/mL CK-MB (CK-2) Rel Index Troponin I (0.000-0.034) ng/mL Total Protein (6.3-8.2) g/dL Albumin (3.5-5.0) g/dL Urine Color Urine Appearance (Clear) Urine pH (5.0-8.0) Ur Specific [place] (1.001-1.035) Urine Protein (Negative) Urine Glucose (UA) (Negative) Urine Ketones (Negative) Urine Blood (Negative) Urine Nitrite (Negative) Urine Bilirubin (Negative) Urine Urobilinogen (<2.0) mg/dL Ur Leukocyte Esterase (Negative) Urine WBC (0-5) /hpf Amorphous Sediment (None) /hpf Urine Mucus (None) /hpf Urine Opiates Screen (NotDetected) Ur Oxycodone Screen (NotDetected) Urine Methadone Screen (NotDetected) Ur Propoxyphene Screen (NotDetected) Ur Barbiturates Screen (NotDetected) U Tricyclic Antidepress (NotDetected) Ur Phencyclidine Scrn (NotDetected) Ur Amphetamines Screen (NotDetected) U Methamphetamines Scrn (NotDetected) U Benzodiazepines Scrn (NotDetected) Urine Cocaine Screen (NotDetected) U Marijuana (THC) Screen (NotDetected) 03/07/18 Range/Units 15:20 WBC (3.8-10.6) k/uL RBC (4.30-5.90) m/uL Hgb (13.0-17.5) gm/dL Hct (39.0-53.0) % MCV (80.0-100.0) fL MCH (25.0-35.0) pg MCHC (31.0-37.0) g/dL RDW (11.5-15.5) % Plt Count (150-450) k/uL Neutrophils % % Lymphocytes % % Monocytes % % Eosinophils % % Basophils % % Neutrophils # (1.3-7.7) k/uL Lymphocytes # (1.0-4.8) k/uL Monocytes # (0-1.0) k/uL Eosinophils # (0-0.7) k/uL Basophils # (0-0.2) k/uL PT (9.0-12.0) sec INR (<1.2) APTT (22.0-30.0) sec VBG pH (7.31-7.41) VBG pCO2 (37-51) mmHg VBG HCO3 (24-28) mmol/L Sodium (137-145) mmol/L Potassium (3.5-5.1) mmol/L Chloride (98-107) mmol/L Carbon Dioxide (22-30) mmol/L Anion Gap mmol/L BUN (9-20) mg/dL Creatinine (0.66-1.25) mg/dL Est GFR (CKD-EPI)AfAm (>60 ml/min/1.73 sqM) Est GFR (CKD-EPI)NonAf (>60 ml/min/1.73 sqM) Glucose (74-99) mg/dL Plasma Lactic Acid Stanley (0.7-2.0) mmol/L Calcium (8.4-10.2) mg/dL Total Bilirubin (0.2-1.3) mg/dL AST (17-59) U/L ALT (21-72) U/L Alkaline Phosphatase (38-126) U/L Total Creatine Kinase (55-170) U/L CK-MB (CK-2) (0.0-2.4) ng/mL CK-MB (CK-2) Rel Index Troponin I (0.000-0.034) ng/mL Total Protein (6.3-8.2) g/dL Albumin (3.5-5.0) g/dL Urine Color Yellow Urine Appearance Turbid (Clear) Urine pH 5.5 (5.0-8.0) Ur Specific [place] 1.014 (1.001-1.035) Urine Protein Trace H (Negative) Urine Glucose (UA) Negative (Negative) Urine Ketones Negative (Negative) Urine Blood Small H (Negative) Urine Nitrite Negative (Negative) Urine Bilirubin Negative (Negative) Urine Urobilinogen <2.0 (<2.0) mg/dL Ur Leukocyte Esterase Moderate H (Negative) Urine WBC 8 H (0-5) /hpf Amorphous Sediment Rare H (None) /hpf Urine Mucus Rare H (None) /hpf Urine Opiates Screen Not Detected (NotDetected) Ur Oxycodone Screen Not Detected (NotDetected) Urine Methadone Screen Not Detected (NotDetected) Ur Propoxyphene Screen Not Detected (NotDetected) Ur Barbiturates Screen Not Detected (NotDetected) U Tricyclic Antidepress Detected H (NotDetected) Ur Phencyclidine Scrn Not Detected (NotDetected) Ur Amphetamines Screen Not Detected (NotDetected) U Methamphetamines Scrn Not Detected (NotDetected) U Benzodiazepines Scrn Detected H (NotDetected) Urine Cocaine Screen Not Detected (NotDetected) U Marijuana (THC) Screen Not Detected (NotDetected) Disposition Clinical Impression: Altered mental status, Delirium due to general medical condition Disposition: ADMITTED IP TO THIS HOSP Condition: Stable Is patient prescribed a controlled substance at d/c from ED?: No Referrals: Gilmer Lopez MD [Primary Care Provider] - 1-2 days Time of Disposition: 16:05
[2018-03-07 13:57] LABS: VBG PH 7.37 (7.31-7.41)
[2018-03-07 13:58] LABS: Basophils % (A) 1 %; Eosinophils # (A) 0.1 k/uL (0-0.7); Eosinophils % (A) 2 %; HCT 29.5 % (39.0-53.0); HGB 9.4 gm/dL (13.0-17.5); Lymphocytes # (A) 0.6 k/uL (1.0-4.8); Lymphocytes % (A) 12 %; MCH 26.8 pg (25.0-35.0); MCHC 31.9 g/dL (31.0-37.0); MCV 84.1 fL (80.0-100.0); Mean Platelet Volume 6.9; Monocytes # (A) 0.3 k/uL (0-1.0); Monocytes % (A) 6 %; Neutrophils # (A) 3.8 k/uL (1.3-7.7); Neutrophils % (A) 79 %; Platelet Count 189 k/uL (150-450); RBC 3.51 m/uL (4.30-5.90); RDW 15.1 % (11.5-15.5); WBC 4.8 k/uL (3.8-10.6)
[2018-03-07 14:09] LABS: ALT 35 U/L (21-72); AST 25 U/L (17-59); Albumin 3.2 g/dL (3.5-5.0); Alkaline Phosphatase 98 U/L (38-126); Anion Gap 6 mmol/L; Blood Urea Nitrogen 16 mg/dL (9-20); Carbon Dioxide 27 mmol/L (22-30); Chloride 105 mmol/L (98-107); Glucose 130 mg/dL (74-99); Potassium 4.4 mmol/L (3.5-5.1); Sodium 138 mmol/L (137-145); Total Bilirubin 0.3 mg/dL (0.2-1.3); Total Protein 7.3 g/dL (6.3-8.2)
--- NOTE | 2018-03-07 14:14 | CT ---
EXAMINATION TYPE: CT brain wo con DATE OF EXAM: 03/07/2018 COMPARISON: 02/14/2018 CT and MRI brain dated 12/09/2017 HISTORY: Altered mental status CT DLP: 1087.4 mGycm Automated exposure control for dose reduction was used. TECHNIQUE: CT scan of the head is performed without contrast. FINDINGS: There is no acute intracranial hemorrhage or midline shift identified. There is diffuse v entricular and sulcal prominence consistent with diffuse age-related cerebral atrophy. Within or inte rface appears well-differentiated. There is chronic asymmetry of the size of the lateral ventricles, likely congenital. The globes are intact and the visualized sinuses are clear. There is is an expan sile lesion within the clivus measuring 2.4 cm, retrospectively unchanged from priors. 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 Atheromatous changes are seen of the intracranial vasculature. There is scant fluid within the depend ent mastoid air cells bilaterally. Scant mucosal thickening is noted within the right maxillary sinus . IMPRESSION: 1. No acute intracranial hemorrhage or midline shift. 2. Diffuse age-related cerebral atrophy appearing similar to the prior in degree. 3. Slightly expansile clival lesion that retrospectively appears similar to the prior and is not well appreciated on the MRI given motion artifact through this region. Repeat MRI could be considered if there is further clinical concern. 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
[2018-03-07 14:16] LABS: Creatine Kinase 47 U/L (55-170)
[2018-03-07 14:17] LABS: Partial Thromboplastin Time 28.8 sec (22.0-30.0); Prothrombin Time 11.1 sec (9.0-12.0)
--- NOTE | 2018-03-07 14:28 | XR ---
EXAMINATION TYPE: XR chest 2V DATE OF EXAM: 03/07/2018 COMPARISON: 02/14/2018 HISTORY: Altered mental status TECHNIQUE: Frontal and lateral views of the chest are obtained. FINDINGS: Heart and mediastinum are normal. Lungs are clear. Diaphragm is normal. Bony thorax appear s normal. There are sternal wires. IMPRESSION: No active cardiopulmonary disease. Normal heart. No change.
[2018-03-07 14:29] LABS: Creatine Kinase MB 2.9 ng/mL (0.0-2.4); Troponin I <0.012 ng/mL (0.000-0.034)
[2018-03-07 15:38] LABS: Amorphous Sediment,Urine Rare /hpf; Appearance,Urine Turbid (Clear); Bilirubin,Urine Negative (Negative); Blood,Urine Small (Negative); Color,Urine Yellow; Glucose,Urine (UA) Negative (Negative); Ketones,Urine Negative (Negative); Leukocyte Esterase,Urine Moderate (Negative); Mucus,Urine Rare /hpf; Nitrite,Urine Negative (Negative); PH, Urine 5.5 (5.0-8.0); Protein,Urine Trace (Negative); Specific Gravity,Urine 1.014 (1.001-1.035); Urobilinogen,Urine <2.0 mg/dL (<2.0); WBC,Urine 8 /hpf (0-5)
[2018-03-07 15:40] LABS: Amphetamine Screen,Urine Not Detected (NotDetected); Barbiturate Screen,Urine Not Detected (NotDetected); Benzodiazepines Screen,Urine Detected (NotDetected); Cocaine Screen,Urine Not Detected (NotDetected); Methadone Screen, Urine Not Detected (NotDetected); Opiate Screen,Urine Not Detected (NotDetected); Oxycodone Screen, Urine Not Detected (NotDetected); Phencyclidine Screen,Urine Not Detected (NotDetected); Tricyclic Antidepressant,Urine Detected (NotDetected); Urn Cannabinoid Scrn Not Detected (NotDetected)
[2018-03-07] MEDS ORDERED: LORazepam 2 MG/ML INJ IV PRN (15:54)
[2018-03-07] MEDS ORDERED: NALOXONE 0.4 MG/ML 1 ML VIAL IV PRN (15:54)
--- NOTE | 2018-03-07 18:25 | P.CNNES ---
History of Present Illness Consult date: 03/07/18 History of Present Illness: The patient is a 42-year-old man with history of paraplegia and seizure disorder who presents to the hospital with recent increased lethargy upper respiratory congestion and altered mental status. His is at the bedside. She states there is been no witnessed seizure. He patient is currently getting Vimpat 100 mg twice a day via feeding tube. The patient's also reports that he's been having more paranoid delusions recently. He is also had rambling speech. This all began about 3 days ago. She denied any history of fevers. He's been complaining of burning feet which she's been complaining of for one year.. The patient had a CAT scan of the brain in the emergency room showed no acute intracranial hemorrhage. There was age-related atrophy. There was slightly expansile clival lesion and recommendation was made by radiology for MRI. The patient was admitted to the hospital with delirium due to general medical condition. The patient follows regularly at the wound clinic for decubitus ulcer. Review of Systems ROS unobtainable: due to mental status Past Medical History Past Medical History: Diabetes Mellitus, Deep Vein Thrombosis (DVT), GERD/Reflux , Hyperlipidemia, Hypertension, Prostate Disorder Additional Past Medical History / Comment(s): DVT B/L LE, anxiety/depression, difficulty sleeping,history of osteomeylitis- coccyx wound has had hyerbaric tx and wound vac. currently has coccyx wound goes to [facility] every thurd at 9am.,uti' s. 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 Paraplegia SINCE LAMINECTOMY FEB 15, 2017PARALIZED WAIST DOWN SINCE LAMINECTOMY FEB 15, 2017; abd hernia. per "pt gets tube feeding but eats 3 meals a day but carefull with thin liquids or any tough meat. crush all meds put thru peg tube" History of Any Multi-Drug Resistant Organisms: MRSA, VRE Date of last positivie culture/infection: 01/12/18 MRSA; 07/28/17 VRE MDRO Source:: Hip-MRSA & VRE Past Surgical History: Back Surgery, Bowel Resection, Coronary Bypass/CABG, Heart Catheterization Additional Past Surgical History / Comment(s): LAMINECTOMY 02/15/17-has had total of 4 sx, lt arm picc line-since removed. COLONOSCOPY, 5 vessel cabg. COLOSTOMY(was done d/t non healing coccyx wound. SUpra PUBIC CATH (changed last 02-11-18), picc line-since removed. peg tube. PICC Line Past Anesthesia/Blood Transfusion Reactions: Previous Problems w/ Anesthesia Additional Past Anesthesia/Blood Transfusion Reaction / Comment(s): SLOW TO COME OUT OF ANESTHESIA AFTER LAST PROCEDURE. blood transfusion-no reaction Past Psychological History: Anxiety, Depression Additional Psychological History / Comment(s): pt lives at home w/spouse. has [facility] home care. has hospital bed/air mattress, temitope lift but stated pt is currently bedridden -not to sit in chair d/t wounds coccyx/buttocks, turn every 2 hours(per ) Smoking Status: Former smoker Past Alcohol Use History: Occasional Additional Past Alcohol Use History / Comment(s): started smoking at age 17 and QUIT SMOKING cigarettes 1992-started smoking cigars and , QUIT CIGARS 2009, no alcohol now Past Drug Use History: None Reported - Past Family History Brother(s) Family Medical History: Cancer Mother Additional Family Medical History / Comment(s): emphysema Father Additional Family Medical History / Comment(s): emphysema Medications and Allergies Home Medications Medication Instructions Recorded Confirmed Type Metoprolol Tartrate [Lopressor] 12.5 mg PO BID 09/21/16 03/07/18 History Apixaban [Eliquis] 5 mg PO BID 07/27/17 03/07/18 History HYDROcodone/APAP 7.5-325MG [[place] 1 tab PO Q6HR PRN 07/27/17 03/07/18 History 7.5-325] Lisinopril [Prinivil] 5 mg PO DAILY 10/03/17 03/07/18 History Pantoprazole Sodium 40 mg PO DAILY 10/03/17 03/07/18 History amLODIPine [Norvasc] 5 mg PO DAILY 10/03/17 03/07/18 History Linezolid 600 mg PO BID #60 tablet 02/17/18 03/07/18 Rx Sulfamethox-Tmp 800-160Mg [Bactrim 1 tab PO Q12HR #60 tab 02/17/18 03/07/18 Rx DS 800-160 mg] levETIRAcetam [Keppra] 750 mg PO BID #60 tab 02/17/18 03/07/18 Rx Acetaminophen [Tylenol Extra 1,000 mg PO Q6H PRN 03/07/18 03/07/18 History Strength] Aspirin EC [Ecotrin Low Dose] 81 mg PO DAILY 03/07/18 03/07/18 History Cetirizine HCl 10 mg PO DAILY 03/07/18 03/07/18 History Lacosamide [Vimpat] 100 mg PO BID 03/07/18 03/07/18 History Allergies Allergy/AdvReac Type Severity Reaction Status Date / Time No Known Allergies Allergy Verified 03/07/18 13:46 Physical Examination - Vital Signs Vital Signs: Vital Signs Temp Pulse Pulse Resp BP BP Pulse Ox 03/07/18 16:34 97.7 F 86 18 138/70 100 03/07/18 16:30 80 18 143/75 97 03/07/18 15:00 81 16 138/79 99 03/07/18 13:20 97.6 F 85 18 142/86 99 Intake and Output 03/07/18 03/07/18 03/07/18 06:59 14:59 22:59 Other: Weight 93.44 kg 93.44 kg - Constitutional General appearance: average body habitus - EENT EENT: PERRL - Respiratory Respiratory: rhonchi - Cardiovascular Cardiovascular: regular rate - Neurologic Neurologic examination: Mental status: The patient was awake and staring. He seemed to follow some commands such as squeezing and but this was intermittent and not consistent. Cranial nerve examination: Pupils were 2 mm equal and reactive Motor examination: He was able to move both arms and he had good well tester in both hands Results - Laboratory Findings CBC and BMP: 03/07/18 13:43 03/07/18 13:43 Abnormal Lab Findings: Abnormal Labs 03/07/18 03/07/18 03/07/18 13:43 13:43 13:43 RBC 3.51 L Hgb 9.4 L Hct 29.5 L Lymphocytes # 0.6 L Glucose 130 H Total Creatine Kinase 47 L CK-MB (CK-2) 2.9 H Albumin 3.2 L Urine Protein Urine Blood Ur Leukocyte Esterase Urine WBC Amorphous Sediment Urine Mucus U Tricyclic Antidepress U Benzodiazepines Scrn 03/07/18 15:20 RBC Hgb Hct Lymphocytes # Glucose Total Creatine Kinase CK-MB (CK-2) Albumin Urine Protein Trace H Urine Blood Small H Ur Leukocyte Esterase Moderate H Urine WBC 8 H Amorphous Sediment Rare H Urine Mucus Rare H U Tricyclic Antidepress Detected H U Benzodiazepines Scrn Detected H Assessment and Plan (1) Delirium due to general medical condition Current Visit: Yes Status: Acute SNOMED Code(s): 5485437 (2) Dehydration Current Visit: No Status: Acute SNOMED Code(s): 15923064 (3) Decubitus ulcer Current Visit: Yes Status: Acute Code(s): L89.90 - PRESSURE ULCER OF UNSPECIFIED SITE, UNSPECIFIED STAGE SNOMED Code(s): 363817242 (4) History of seizure disorder Current Visit: Yes Status: Acute SNOMED Code(s): 891914030 Plan: The patient is a 62-year-old man with history of paraplegia seizure disorder who has been on Vimpat 200 mg twice a day at home. There's been no breakthrough seizures. He has had some altered mental status recently and presents to the hospital with delirium. He has a had some upper respiratory coughing for the last few days at home and has had had some paranoid delusions. Recommend MRI of the brain for further evaluation . Recommend Vimpat level. Recommend continue home dose of Vimpat Recommend follow-up EEG.
[2018-03-07] MEDS ORDERED: ACETAMINOPHEN TAB 500 MG TAB PO PRN (18:45)
[2018-03-07] MEDS ORDERED: HYDROcodone/APAP 7.5-325MG 1 EACH TAB PO PRN (18:45)
[2018-03-07 20:10] LABS: Glucose,Whole Blood 110 mg/dL (75-99)
[2018-03-07] MEDS ORDERED: LACOSAMIDE 50 MG TABLET PO SCH (21:00)
[2018-03-07] MEDS: INSULIN ASPART 100 UNIT/ML 1 ML 10 ML VIAL SQ SCH (22:23)
[2018-03-07] MEDS: LACOSAMIDE 50 MG TABLET PEG/G-TUBE SCH (23:55)
[2018-03-07] MEDS: LINEZOLID 600 MG TAB PO SCH (23:55)
[2018-03-07] MEDS: APIXABAN 5 MG TAB PO SCH (23:55)
[2018-03-07] MEDS: METOPROLOL TARTRATE 12.5 MG TAB PO SCH (23:55)
[2018-03-08 07:00] LABS: Glucose,Whole Blood 114 mg/dL (75-99)
[2018-03-08] MEDS: INSULIN ASPART 100 UNIT/ML 1 ML 10 ML VIAL SQ SCH ×4 (07:08→22:01)
[2018-03-08] MEDS ORDERED: PANTOPRAZOLE 40 MG TABLET PO SCH (07:30)
[2018-03-08 10:34] LABS: Basophils % (A) 0 %; Eosinophils # (A) 0.1 k/uL (0-0.7); Eosinophils % (A) 2 %; HGB 8.3 gm/dL (13.0-17.5); Hypochromasia Slight; Lymphocytes # (A) 0.7 k/uL (1.0-4.8); Lymphocytes % (A) 15 %; MCH 26.5 pg (25.0-35.0); MCHC 30.9 g/dL (31.0-37.0); MCV 85.6 fL (80.0-100.0); Mean Platelet Volume 6.5; Monocytes # (A) 0.3 k/uL (0-1.0); Monocytes % (A) 6 %; Neutrophils # (A) 3.5 k/uL (1.3-7.7); Neutrophils % (A) 75 %; Platelet Count 178 k/uL (150-450); RBC 3.16 m/uL (4.30-5.90); RDW 15.3 % (11.5-15.5); WBC 4.7 k/uL (3.8-10.6)
[2018-03-08 10:39] LABS: Anion Gap 7 mmol/L; Blood Urea Nitrogen 13 mg/dL (9-20); Calcium 8.7 mg/dL (8.4-10.2); Carbon Dioxide 25 mmol/L (22-30); Chloride 109 mmol/L (98-107); Glucose 102 mg/dL (74-99); Magnesium 1.9 mg/dL (1.6-2.3); Potassium 4.1 mmol/L (3.5-5.1); Sodium 141 mmol/L (137-145)
[2018-03-08] MEDS: LACOSAMIDE 50 MG TABLET PEG/G-TUBE SCH ×2 (11:03→22:16)
[2018-03-08] MEDS: PANTOPRAZOLE SODIUM 40 MG GRANULE PKT PEG/G-TUBE SCH ×2 (11:03→11:07)
[2018-03-08] MEDS: METOPROLOL TARTRATE 12.5 MG TAB PO SCH ×2 (11:04→22:16)
[2018-03-08] MEDS: LISINOPRIL 5 MG TAB PO SCH (11:04)
[2018-03-08] MEDS: LINEZOLID 600 MG TAB PO SCH ×2 (11:04→22:15)
[2018-03-08] MEDS: APIXABAN 5 MG TAB PO SCH ×2 (11:04→22:16)
[2018-03-08] MEDS: ASPIRIN 81 MG PO SCH (11:04)
[2018-03-08] MEDS: SODIUM CHLORIDE 0.9% 1,000 ML IV SCH ×2 (11:08→22:17)
--- NOTE | 2018-03-08 11:20 | FL ---
MODIFIED SWALLOW / DEGLUTITION STUDY DATE OF EXAM: 03/08/2018 CLINICAL HISTORY: 62-year-old male aspiration, respiratory problems and when prior PEG tube, removed 1 month ago. Now patient beginning to cough with eating. Dysphagia. TECHNIQUE: Deglutition study is performed utilizing thin liquid barium, honey and nectar thick liqui d barium, barium thick applesauce, and barium coated cracker. Total fluoroscopy time: 2 minutes 51 seconds. Total images: None. Real-time fluoroscopy support was provided to speech pathology. COMPARISON: None. FINDINGS: Swallow initiation was mildly delayed with bolus free spilling to the level of the piriform sinuses i ntermittently. Normal mastication is seen with solid modalities tested. There is intermittent aspiration during swallows of thin liquid that inconsistently elicits a cough r eflex. A single episode of transient penetration with nectar liquid. No other penetration or aspirati on seen. No significant pharyngeal residue was appreciated. C5-C6 ACDF. IMPRESSION: Intermittent aspiration with thin liquids. This inconsistently elicits the cough reflex. Please refer to speech therapist notes for further details if necessary.
[2018-03-08 11:44] LABS: Glucose,Whole Blood 138 mg/dL (75-99)
--- NOTE | 2018-03-08 13:07 | P.HPIM ---
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 Patients is at the bedside and reports that patient has not slept in 3 days. She states he has been staring at the ceiling for over 24 hours. She reports he has been agitated when she is trying to provide care to him which is not his baseline. He has not been eating or drinking much over the past few days and she reports she increased his tube feedings. Patient was recently admitted to the hospital from 02/15/2018-02/17/2018 due to altered mental status. He was discharged with new onset seizures. He was started on Keppra which has since been changed to Vimpat. Chest x-ray completed in the emergency room reveals no acute process. CT of the brain was negative for acute process. Diffuse age related cerebral atrophy. Laboratory data upon admission revealed WBC 4.8. Hemoglobin 9.4. Platelet count 189. Sodium 138. Potassium 4.4. BUN 16. Creatinine 0.88. Lactic acid 0.9. Troponin negative x 1. TSH 1.910. REVIEW OF SYSTEMS: Unable to thoroughly assess due to patients mental status PHYSICAL EXAM: GENERAL: This is a 62-year-old male in no apparent distress at the time of examination. Patient is lethargic HEENT: Head is atraumatic, normocephalic. Pupils are equal, round, and reactive to light. Sclerae anicteric. Conjunctivae are clear. Mucus membranes of the mouth are moist. Neck is supple. RESPIRATORY: Clear to auscultation.. No wheezes, rales, or rhonchi. No use of accessory muscles. Patient maintaining oxygen saturation greater than 92%. No chest wall tenderness is noted on palpation or with deep breathing. CARDIOVASCULAR: Regular rate and rhythm. S1 and S2 noted. No systolic or diastolic murmur auscultated. No JVD noted. No S3 or S4 noted. GASTROINTESTINAL: No distention noted. Abdomen soft and round. Normal active bowel sounds auscultated x 4 quadrants. Colostomy present. GI: Suprapubic catheter noted with clear yellow urine. INTEGUMENTARY: Stage IV wound to coccyx. No cyanosis. No jaundice. No rashes noted. No cellulitis noted. EXTREMITIES: 2+ peripheral pulses. No evidence of peripheral edema. NEUROLOGIC: A/O x 1. Patient with little movement of lower extremities secondary to paraplegia. No tremors or seizure activity noted during examination. Patient remains lethargic. ASSESSMENT: Acute delirium, may be secondary to insomnia, reports patient hasnt sleep in 3-4 days History of recent hospitalization due to encephalopathy, diagnosed with new onset seizures History of laminectomy, February 2017 Paraplegia, s/p laminectomy History of three previous back surgeries prior to laminectomy in 2017 History of stage IV coccyx wound, present on admission, with hx of multiple antibiotic therapies, wound vac multiple times, and hyperbaric oxygen treatments History of suprapubic catheter insertion and colostomy, in an attempt to keep wound clean and improve healing Neurogenic bladder Osteomyelitis of lumbar spine Diabetes mellitus, type II Hypertension Hyperlipidemia History of bilateral DVT History of Guillain-Suazo syndrome History of MRSA, coccyx wound History of VRE, coccyx wound PLAN: Neurology on consult. Appreciate recommendations and input Patient scheduled for EEG and MRI of the brain Seizure precautions Begin seroquel 50mg HS PO intake as tolerated Consult dietary to resume tube feeding IV fluids at 100cc/hr until tube feeding initiated, then may decrease to KVO Home meds as appropriate Monitor labs GI prophylaxis: Protonix 40 mg Daily DVT prophylaxis: Eliquis 5mg PO BID Monitor vital signs and address as appropriate Discharge planning: Patient to return home when stable. Patients spouse cares for him and also has home care. Further recommendations pending patient's course Nurse practitioner note has been reviewed by physician. Signing provider agrees with the documented findings, assessment, and plan of care. Past Medical History Past Medical History: Diabetes Mellitus, Deep Vein Thrombosis (DVT), GERD/Reflux , Hyperlipidemia, Hypertension, Prostate Disorder Additional Past Medical History / Comment(s): DVT B/L LE, anxiety/depression, difficulty sleeping,history of osteomeylitis- coccyx wound has had hyerbaric tx and wound vac. currently has coccyx wound goes to [facility] every thurd at 9am.,uti' s. 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 Paraplegia SINCE LAMINECTOMY FEB 15, 2017PARALIZED WAIST DOWN SINCE LAMINECTOMY FEB 15, 2017; abd hernia. per "pt gets tube feeding but eats 3 meals a day but carefull with thin liquids or any tough meat. crush all meds put thru peg tube" History of Any Multi-Drug Resistant Organisms: MRSA, VRE Date of last positivie culture/infection: 01/12/18 MRSA; 07/28/17 VRE MDRO Source:: Hip-MRSA & VRE Past Surgical History: Back Surgery, Bowel Resection, Coronary Bypass/CABG, Heart Catheterization Additional Past Surgical History / Comment(s): LAMINECTOMY 02/15/17-has had total of 4 sx, lt arm picc line-since removed. COLONOSCOPY, 5 vessel cabg. COLOSTOMY(was done d/t non healing coccyx wound. SUpra PUBIC CATH (changed last 02-11-18), picc line-since removed. peg tube. PICC Line Past Anesthesia/Blood Transfusion Reactions: Previous Problems w/ Anesthesia Additional Past Anesthesia/Blood Transfusion Reaction / Comment(s): SLOW TO COME OUT OF ANESTHESIA AFTER LAST PROCEDURE. blood transfusion-no reaction Past Psychological History: Anxiety, Depression Additional Psychological History / Comment(s): pt lives at home w/spouse. has [facility] home care. has hospital bed/air mattress, temitope lift but stated pt is currently bedridden -not to sit in chair d/t wounds coccyx/buttocks, turn every 2 hours(per ) Smoking Status: Former smoker Past Alcohol Use History: Occasional Additional Past Alcohol Use History / Comment(s): started smoking at age 17 and QUIT SMOKING cigarettes 1992-started smoking cigars and , QUIT CIGARS 2009, no alcohol now Past Drug Use History: None Reported - Past Family History Brother(s) Family Medical History: Cancer Mother Additional Family Medical History / Comment(s): emphysema Father Additional Family Medical History / Comment(s): emphysema Medications and Allergies Home Medications Medication Instructions Recorded Confirmed Type Metoprolol Tartrate [Lopressor] 12.5 mg PEG/G-TUBE BID 09/21/16 03/07/18 History Apixaban [Eliquis] 5 mg PO BID 07/27/17 03/07/18 History HYDROcodone/APAP 7.5-325MG [[place] 1 tab PO Q6HR PRN 07/27/17 03/07/18 History 7.5-325] Lisinopril [Prinivil] 5 mg PEG/G-TUBE DAILY 10/03/17 03/07/18 History Pantoprazole Sodium 40 mg PO DAILY 10/03/17 03/07/18 History amLODIPine [Norvasc] 5 mg PEG/G-TUBE DAILY 10/03/17 03/07/18 History Linezolid 600 mg PO BID #60 tablet 02/17/18 03/07/18 Rx Sulfamethox-Tmp 800-160Mg [Bactrim 1 tab PO Q12HR #60 tab 02/17/18 03/07/18 Rx DS 800-160 mg] levETIRAcetam [Keppra] 750 mg PO BID #60 tab 02/17/18 03/07/18 Rx Acetaminophen [Tylenol Extra 1,000 mg PEG/G-TUBE Q6H PRN 03/07/18 03/07/18 History Strength] Aspirin EC [Ecotrin Low Dose] 81 mg PEG/G-TUBE DAILY 03/07/18 03/07/18 History Cetirizine HCl 10 mg PEG/G-TUBE DAILY 03/07/18 03/07/18 History Lacosamide [Vimpat] 100 mg PO BID 03/07/18 03/07/18 History Allergies Allergy/AdvReac Type Severity Reaction Status Date / Time No Known Allergies Allergy Verified 03/07/18 13:46 Physical Exam Vitals: Vital Signs Temp Pulse Pulse Pulse Resp BP BP 03/08/18 10:06 12 03/08/18 08:34 98.8 F 74 12 153/74 03/08/18 00:30 97.7 F 101 H 14 132/76 03/07/18 19:15 97.8 F 85 14 132/81 03/07/18 18:07 18 03/07/18 16:34 97.7 F 86 18 03/07/18 16:30 80 18 143/75 03/07/18 15:00 81 16 138/79 03/07/18 13:20 97.6 F 85 18 142/86 BP Pulse Ox 03/08/18 10:06 03/08/18 08:34 97 03/08/18 00:30 98 03/07/18 19:15 100 03/07/18 18:07 01/01/19 16:34 138/70 100 03/07/18 16:30 97 03/07/18 15:00 99 03/07/18 13:20 99 Intake and Output 03/07/18 03/08/18 03/08/18 22:59 06:59 14:59 Intake Total 800 Output Total 600 Balance -600 800 Intake: Intake, IV Titration 800 Amount Sodium Chloride 0.9% 1, 800 000 ml @ 100 mls/hr IV . Q10H ONE Rx#:[id number] Output: Urine 600 Other: Voiding Method Indwelling Catheter Indwelling Catheter Weight 93.44 kg 93.44 kg Results CBC & Chem 7: 03/08/18 07:57 03/08/18 07:57 Labs: Abnormal Lab Results - Last 24 Hours (Table) 03/07/18 03/07/18 03/07/18 Range/Units 13:43 13:43 13:43 RBC 3.51 L (4.30-5.90) m/uL Hgb 9.4 L (13.0-17.5) gm/dL Hct 29.5 L (39.0-53.0) % MCHC (31.0-37.0) g/dL Lymphocytes # 0.6 L (1.0-4.8) k/uL Chloride (98-107) mmol/L Glucose 130 H (74-99) mg/dL POC Glucose (mg/dL) (75-99) mg/dL Total Creatine Kinase 47 L (55-170) U/L CK-MB (CK-2) 2.9 H (0.0-2.4) ng/mL Albumin 3.2 L (3.5-5.0) g/dL Urine Protein (Negative) Urine Blood (Negative) Ur Leukocyte Esterase (Negative) Urine WBC (0-5) /hpf Amorphous Sediment (None) /hpf Urine Mucus (None) /hpf U Tricyclic Antidepress (NotDetected) U Benzodiazepines Scrn (NotDetected) 03/07/18 03/07/18 03/08/18 Range/Units 15:20 19:59 06:58 RBC (4.30-5.90) m/uL Hgb (13.0-17.5) gm/dL Hct (39.0-53.0) % MCHC (31.0-37.0) g/dL Lymphocytes # (1.0-4.8) k/uL Chloride (98-107) mmol/L Glucose (74-99) mg/dL POC Glucose (mg/dL) 110 H 114 H (75-99) mg/dL Total Creatine Kinase (55-170) U/L CK-MB (CK-2) (0.0-2.4) ng/mL Albumin (3.5-5.0) g/dL Urine Protein Trace H (Negative) Urine Blood Small H (Negative) Ur Leukocyte Esterase Moderate H (Negative) Urine WBC 8 H (0-5) /hpf Amorphous Sediment Rare H (None) /hpf Urine Mucus Rare H (None) /hpf U Tricyclic Antidepress Detected H (NotDetected) U Benzodiazepines Scrn Detected H (NotDetected) 03/08/18 03/08/18 Range/Units 07:57 07:57 RBC 3.16 L (4.30-5.90) m/uL Hgb 8.3 L (13.0-17.5) gm/dL Hct 27.0 L (39.0-53.0) % MCHC 30.9 L (31.0-37.0) g/dL Lymphocytes # 0.7 L (1.0-4.8) k/uL Chloride 109 H (98-107) mmol/L Glucose 102 H (74-99) mg/dL POC Glucose (mg/dL) (75-99) mg/dL Total Creatine Kinase (55-170) U/L CK-MB (CK-2) (0.0-2.4) ng/mL Albumin (3.5-5.0) g/dL Urine Protein (Negative) Urine Blood (Negative) Ur Leukocyte Esterase (Negative) Urine WBC (0-5) /hpf Amorphous Sediment (None) /hpf Urine Mucus (None) /hpf U Tricyclic Antidepress (NotDetected) U Benzodiazepines Scrn (NotDetected) Thrombosis Risk Factor Assmnt - Choose All That Apply Any of the Below Risk Factors Present?: Yes Each Factor Represents 1 point: Medical pt on bed rest Other Risk Factors: Yes Each Risk Factor Represents 2 Points: Age 61-74 years Each Risk Factor Represents 3 Points: History of DVT/PE Thrombosis Risk Factor Assessment Total Risk Factor Score: 6 Thrombosis Risk Factor Assessment Level: High Risk
[2018-03-08 17:18] LABS: Glucose,Whole Blood 105 mg/dL (75-99)
[2018-03-08 20:27] LABS: Glucose,Whole Blood 122 mg/dL (75-99)
--- NOTE | 2018-03-08 21:15 | P.PN ---
Subjective Progress Note Date: 03/08/18 The patient is a 62-year-old man with history of paraplegia status post laminectomy and recently diagnosed with seizure disorder. He has a history of GBS and is on PEG tube feedings at home. The patient presents to the hospital with paranoid delusions confusion and dehydration. He also had severe insomnia. The patient is doing doing better today. He is more alert and is able to respond verbally today. He had an EEG which showed's abnormal sharp wave activity. He has not had any breakthrough seizure in the hospital. He is currently taking Vimpat for seizure management. Vimpat level is pending. He is scheduled for an MRI of the brain. He is being treated for decubitus ulcer. Objective - Vital Signs Vital signs: Vital Signs Temp 98.3 F 03/08/18 19:47 Pulse 65 03/08/18 19:47 Resp 16 03/08/18 19:47 BP 110/63 03/08/18 19:47 Pulse Ox 99 03/08/18 19:47 Intake & Output 03/08/18 03/08/18 03/09/18 06:59 18:59 06:59 Intake Total 800 Output Total 600 1400 Balance 200 -1400 Weight 93.44 kg Intake: Intake, IV Titration 800 Amount Sodium Chloride 0.9% 1, 800 000 ml @ 100 mls/hr IV . Q10H ONE Rx#:[id number] Output: Urine 600 600 Stool 800 Other: Voiding Method Indwelling Catheter Indwelling Catheter Indwelling Catheter - Constitutional General appearance: Present: cooperative - Respiratory Respiratory: bilateral: CTA - Cardiovascular Rhythm: regular - Neurologic Neurologic Comment(s): Neurologic examination: Mental status: The patient had some mild dysarthria. He was awake and alert. He did respond to questions. He did follow simple commands. Next Cranial nerve examination: Pupils 2 mm and equal. Motor examination: He was able to lift both arms up against gravity. He has paraplegia. Next - Labs CBC & Chem 7: 03/08/18 07:57 03/08/18 07:57 Labs: Abnormal Lab Results - Last 24 Hours (Table) 03/08/18 03/08/18 03/08/18 Range/Units 06:58 07:57 07:57 RBC 3.16 L (4.30-5.90) m/uL Hgb 8.3 L (13.0-17.5) gm/dL Hct 27.0 L (39.0-53.0) % MCHC 30.9 L (31.0-37.0) g/dL Lymphocytes # 0.7 L (1.0-4.8) k/uL Chloride 109 H (98-107) mmol/L Glucose 102 H (74-99) mg/dL POC Glucose (mg/dL) 114 H (75-99) mg/dL 03/08/18 03/08/18 03/08/18 Range/Units 11:38 16:57 20:15 RBC (4.30-5.90) m/uL Hgb (13.0-17.5) gm/dL Hct (39.0-53.0) % MCHC (31.0-37.0) g/dL Lymphocytes # (1.0-4.8) k/uL Chloride (98-107) mmol/L Glucose (74-99) mg/dL POC Glucose (mg/dL) 138 H 105 H 122 H (75-99) mg/dL Microbiology - Last 24 Hours (Table) 03/07/18 13:43 Blood Culture - Preliminary Blood No Growth after 24 hours Assessment and Plan (1) Delirium due to general medical condition Current Visit: Yes Status: Acute SNOMED Code(s): 4960696 (2) Dehydration Current Visit: No Status: Acute SNOMED Code(s): 42539315 (3) Decubitus ulcer Current Visit: Yes Status: Acute Code(s): L89.90 - PRESSURE ULCER OF UNSPECIFIED SITE, UNSPECIFIED STAGE SNOMED Code(s): 844801607 (4) History of seizure disorder Current Visit: Yes Status: Acute SNOMED Code(s): 332000817 Plan: The patient is a 62-year-old man with history of paraplegia seizure disorder who has been on Vimpat 100 mg twice a day at home. There's been no breakthrough seizures. Vimpat level is pending. He is awaiting MRI of the brain. Neurologically he is improved since yesterday and is more alert. He did have an EEG which showed some abnormal sharp wave activity.
--- NOTE | 2018-03-08 21:45 | EEG ---
ELECTROENCEPHALOGRAM REPORT DATE OF EE03/08/2018 ELECTROENCEPHALOGRAPHIC EXAMINATION REPORT: INDICATION FOR EXAMINATION: This patient is a 62-year-old male with history of paraplegia and seizure disorder. Patient admitted with increasing lethargy and altered mental status. AGE: [age]. EEG FINDINGS: A routine 21-channel awake digital EEG recording was accomplished utilizing the 10-20 international system with bipolar and referential montages. The background activity in the most alert resting state consists of a low to medium amplitude, poorly developed and poorly sustained 5 Hz activity over the posterior head region. This posterior rhythm attenuates to eye opening. There is a small amount of low amplitude 18-20 Hz beta activity seen maximally over the anterior head regions. Muscle and movement artifact was observed on several occasions throughout the tracing. Hyperventilation was not performed. Photic stimulation at flash frequencies of 2-30 Hz produced a minimal occipital driving response. The main feature of this tracing is the frequent occurrence of bitemporal sharp waves noted lasting for 1-2 seconds in duration. No other epileptiform discharges were seen. IMPRESSION: This EEG is abnormal due to the presence of bitemporal sharp waves and diffuse slowing of the EEG background. This EEG finding would be compatible with seizure disorder of deep level origin. If clinically indicated, a follow-up EEG is recommended. Clinical correlation is recommended. MMODL / IJN: [id number] /
[2018-03-08] MEDS: QUEtiapine 50 MG TAB PO SCH (22:16)
[2018-03-09 07:17] LABS: Glucose,Whole Blood 127 mg/dL (75-99)
[2018-03-09] MEDS: INSULIN ASPART 100 UNIT/ML 1 ML 10 ML VIAL SQ SCH ×4 (08:00→21:33)
[2018-03-09] MEDS: PANTOPRAZOLE SODIUM 40 MG GRANULE PKT PEG/G-TUBE SCH (08:01)
[2018-03-09] MEDS: LACOSAMIDE 50 MG TABLET PEG/G-TUBE SCH ×2 (08:09→21:33)
[2018-03-09] MEDS: LISINOPRIL 5 MG TAB PO SCH (08:09)
[2018-03-09] MEDS: amLODIPine 5 MG TAB PEG/G-TUBE SCH (08:10)
[2018-03-09] MEDS: APIXABAN 5 MG TAB PO SCH ×2 (08:10→21:33)
[2018-03-09] MEDS: LINEZOLID 600 MG TAB PO SCH ×2 (08:10→21:33)
[2018-03-09] MEDS: METOPROLOL TARTRATE 12.5 MG TAB PO SCH ×2 (08:10→21:33)
[2018-03-09] MEDS: SODIUM CHLORIDE 0.9% 1,000 ML IV SCH ×2 (08:11→17:43)
[2018-03-09] MEDS: ASPIRIN 81 MG PO SCH (08:11)
[2018-03-09 09:25] LABS: Basophils % (A) 0 %; Eosinophils % (A) 3 %; HCT 26.5 % (39.0-53.0); HGB 8.2 gm/dL (13.0-17.5); Hypochromasia Moderate; Lymphocytes % (A) 14 %; MCH 26.8 pg (25.0-35.0); MCHC 31.1 g/dL (31.0-37.0); MCV 86.2 fL (80.0-100.0); Mean Platelet Volume 6.6; Monocytes % (A) 6 %; Neutrophils % (A) 76 %; Platelet Count 177 k/uL (150-450); RBC 3.07 m/uL (4.30-5.90); RDW 15.5 % (11.5-15.5); WBC 5.3 k/uL (3.8-10.6)
[2018-03-09 09:26] LABS: Eosinophils # (A) 0.1 k/uL (0-0.7); Lymphocytes # (A) 0.7 k/uL (1.0-4.8); Monocytes # (A) 0.3 k/uL (0-1.0)
[2018-03-09 09:36] LABS: Anion Gap 6 mmol/L; Blood Urea Nitrogen 14 mg/dL (9-20); Calcium 8.6 mg/dL (8.4-10.2); Carbon Dioxide 23 mmol/L (22-30); Chloride 110 mmol/L (98-107); Glucose 116 mg/dL (74-99); Potassium 3.9 mmol/L (3.5-5.1); Sodium 139 mmol/L (137-145)
--- NOTE | 2018-03-09 10:16 | P.PN ---
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 Patients is at the bedside and reports that patient has not slept in 3 days. She states he has been staring at the ceiling for over 24 hours. She reports he has been agitated when she is trying to provide care to him which is not his baseline. He has not been eating or drinking much over the past few days and she reports she increased his tube feedings. Patient was recently admitted to the hospital from 02/15/2018-02/17/2018 due to altered mental status. He was discharged with new onset seizures. He was started on Keppra which has since been changed to Vimpat. Chest x-ray completed in the emergency room reveals no acute process. CT of the brain was negative for acute process. Diffuse age related cerebral atrophy. Laboratory data upon admission revealed WBC 4.8. Hemoglobin 9.4. Platelet count 189. Sodium 138. Potassium 4.4. BUN 16. Creatinine 0.88. Lactic acid 0.9. Troponin negative x 1. TSH 1.910. 03/09/2018 Patient examined at the bedside. Patient is much more alert today. Speech is more clear today and easier to understand. Patient was started on Seroquel last night. He did finally get some sleep per daughter. Tube feedings infusing. Patient tolerating well. Patient also tolerating some PO intake. Patient underwent EEG revealing presence of bitemporal sharp waves and diffuse slowing of EEG background, compatible with seizure disorder of deep level origin. Patient unable to have MRI of the brain due to kyphosis and unable to fit into MRI coil and unable to scan head without the coil per environmental services floor tech. Patient sees Dr. Espino outpatient. May require outpatient open MRI after discharge from hospital. PHYSICAL EXAM: GENERAL: This is a 62-year-old male in no apparent distress at the time of examination. HEENT: Head is atraumatic, normocephalic. Pupils are equal, round, and reactive to light. Sclerae anicteric. Conjunctivae are clear. Mucus membranes of the mouth are moist. Neck is supple. RESPIRATORY: Clear to auscultation. No wheezes, rales, or rhonchi. No use of accessory muscles. Patient maintaining oxygen saturation greater than 92%. No chest wall tenderness is noted on palpation or with deep breathing. CARDIOVASCULAR: Regular rate and rhythm. S1 and S2 noted. No systolic or diastolic murmur auscultated. No JVD noted. No S3 or S4 noted. GASTROINTESTINAL: No distention noted. Abdomen soft and round. Normal active bowel sounds auscultated x 4 quadrants. Colostomy present. : Suprapubic catheter noted with clear yellow urine. INTEGUMENTARY: Stage IV wound to coccyx. No cyanosis. No jaundice. No rashes noted. No cellulitis noted. EXTREMITIES: 2+ peripheral pulses. No evidence of peripheral edema. NEUROLOGIC: More more awake and alert today. A/O x 2. Patient is a paraplegic. No tremors or seizure activity noted during examination. ASSESSMENT: Acute delirium, may be secondary to insomnia, reports patient hasnt sleep in 3-4 days, improving History of recent hospitalization due to encephalopathy, diagnosed with new onset seizures History of laminectomy, February 2017 Paraplegia, s/p laminectomy History of three previous back surgeries prior to laminectomy in 2017 History of stage IV coccyx wound, present on admission, with hx of multiple antibiotic therapies, wound vac multiple times, and hyperbaric oxygen treatments History of suprapubic catheter insertion and colostomy, in an attempt to keep wound clean and improve healing Neurogenic bladder Osteomyelitis of lumbar spine Diabetes mellitus, type II Hypertension Hyperlipidemia History of bilateral DVT History of Guillain-Suazo syndrome History of MRSA, coccyx wound History of VRE, coccyx wound PLAN: Neurology on consult. Appreciate recommendations and input Seizure precautions Continue Seroquel 50mg HS PO intake as tolerated. Continue tube feedings. Decrease IVF to KVO Home meds as appropriate Monitor labs GI prophylaxis: Protonix 40 mg Daily DVT prophylaxis: Eliquis 5mg PO BID Monitor vital signs and address as appropriate Discharge planning: Patient to return home when stable. Patients spouse cares for him and also has home care. Further recommendations pending patient's course Possible discharge home tomorrow if patient remains stable and continues to make improvements Nurse practitioner note has been reviewed by physician. Signing provider agrees with the documented findings, assessment, and plan of care. Objective - Vital Signs Vital signs: Vital Signs Temp 98.9 F 03/09/18 07:00 Pulse 58 L 03/09/18 07:00 Resp 12 03/09/18 07:00 BP 107/56 03/09/18 07:00 Pulse Ox 98 03/09/18 07:00 Intake & Output 03/08/18 03/09/18 03/09/18 18:59 06:59 18:59 Intake Total 1760 Output Total 1400 900 Balance -1400 860 Weight 93.44 kg Intake: Intake, IV Titration 1200 Amount Sodium Chloride 0.9% 1, 1200 000 ml @ 100 mls/hr IV . Q10H [facility] Rx#:[id number] Tube Feeding 560 Output: Urine 600 250 Stool 800 650 Other: Voiding Method Indwelling Catheter Indwelling Catheter - Labs CBC & Chem 7: 03/09/18 08:29 03/09/18 08:29 Labs: Abnormal Lab Results - Last 24 Hours (Table) 03/08/18 03/08/18 03/08/18 Range/Units 07:57 07:57 11:38 RBC 3.16 L (4.30-5.90) m/uL Hgb 8.3 L (13.0-17.5) gm/dL Hct 27.0 L (39.0-53.0) % MCHC 30.9 L (31.0-37.0) g/dL Lymphocytes # 0.7 L (1.0-4.8) k/uL Chloride 109 H (98-107) mmol/L Glucose 102 H (74-99) mg/dL POC Glucose (mg/dL) 138 H (75-99) mg/dL 03/08/18 03/08/18 03/09/18 Range/Units 16:57 20:15 07:06 RBC (4.30-5.90) m/uL Hgb (13.0-17.5) gm/dL Hct (39.0-53.0) % MCHC (31.0-37.0) g/dL Lymphocytes # (1.0-4.8) k/uL Chloride (98-107) mmol/L Glucose (74-99) mg/dL POC Glucose (mg/dL) 105 H 122 H 127 H (75-99) mg/dL Microbiology - Last 24 Hours (Table) 03/07/18 13:43 Blood Culture - Preliminary Blood No Growth after 24 hours
[2018-03-09 11:48] LABS: Glucose,Whole Blood 138 mg/dL (75-99)
[2018-03-09 17:28] LABS: Glucose,Whole Blood 120 mg/dL (75-99)
[2018-03-09 20:04] LABS: Glucose,Whole Blood 121 mg/dL (75-99)
[2018-03-09] MEDS: QUEtiapine 50 MG TAB PO SCH (21:33)
--- NOTE | 2018-03-09 22:26 | P.PN ---
Subjective Progress Note Date: 03/09/18 The patient is a 62-year-old man with history of paraplegia status post laminectomy and recently diagnosed with seizure disorder. He has a history of GBS and is on PEG tube feedings at home. The patient presents to the hospital with paranoid delusions confusion and dehydration. He also had severe insomnia. The patient is doing doing better today. He is more alert and is able to respond verbally today. He had an EEG which showed's abnormal sharp wave activity. Vimpat level is pending. The patient was unable to undergo MRI because he could not lay flat on the table. MRI was requested for further evaluation of abnormal CT brain. Another attempt may be made tomorrow. Patient may receive pain medication prior to attempt of MRI. Also patient's family is requesting transfer to [facility] for further monitoring of his seizures.. Patient can be transferred to EMU at [facility]. Alternatively, the patient can be set up for outpatient 30 day ambulatory EEG [facility]. Objective - Vital Signs Vital signs: Vital Signs Temp 98.7 F 03/09/18 19:51 Pulse 65 03/09/18 19:51 Resp 16 03/09/18 19:51 BP 132/79 03/09/18 19:51 Pulse Ox 98 03/09/18 19:51 Intake & Output 03/09/18 03/09/18 03/10/18 06:59 18:59 06:59 Intake Total 1760 Output Total 900 Balance 860 Weight 83.21 kg Intake: Intake, IV Titration 1200 Amount Sodium Chloride 0.9% 1, 1200 000 ml @ 100 mls/hr IV . Q10H [facility] Rx#:[id number] Tube Feeding 560 Output: Urine 250 Stool 650 Other: Voiding Method Indwelling Catheter Indwelling Catheter - Constitutional General appearance: Present: cooperative - Cardiovascular Rhythm: regular - Neurologic Neurologic Comment(s): Neurologic examination: Mental status: He was awake alert and oriented to person and place. Speech was mildly dysarthric. There is no a aphasia Cranial nerve examination: Pupils were 2 mm and equal. There was no facial asymmetry. Motor examination: He had paraplegia - Labs CBC & Chem 7: 03/09/18 08:29 03/09/18 08:29 Labs: Abnormal Lab Results - Last 24 Hours (Table) 03/09/18 03/09/18 03/09/18 Range/Units 07:06 08:29 08:29 RBC 3.07 L (4.30-5.90) m/uL Hgb 8.2 L (13.0-17.5) gm/dL Hct 26.5 L (39.0-53.0) % Lymphocytes # 0.7 L (1.0-4.8) k/uL Chloride 110 H (98-107) mmol/L Glucose 116 H (74-99) mg/dL POC Glucose (mg/dL) 127 H (75-99) mg/dL 03/09/18 03/09/18 03/09/18 Range/Units 11:44 17:25 20:02 RBC (4.30-5.90) m/uL Hgb (13.0-17.5) gm/dL Hct (39.0-53.0) % Lymphocytes # (1.0-4.8) k/uL Chloride (98-107) mmol/L Glucose (74-99) mg/dL POC Glucose (mg/dL) 138 H 120 H 121 H (75-99) mg/dL Microbiology - Last 24 Hours (Table) 03/07/18 13:43 Blood Culture - Preliminary Blood No Growth after 48 hours Assessment and Plan (1) Delirium due to general medical condition Current Visit: Yes Status: Acute SNOMED Code(s): 7675894 (2) Dehydration Current Visit: No Status: Acute SNOMED Code(s): 47091758 (3) Decubitus ulcer Current Visit: Yes Status: Acute Code(s): L89.90 - PRESSURE ULCER OF UNSPECIFIED SITE, UNSPECIFIED STAGE SNOMED Code(s): 063389983 (4) History of seizure disorder Current Visit: Yes Status: Acute SNOMED Code(s): 777685418 Plan: The patient is a 62-year-old man with history of paraplegia seizure disorder who has been on Vimpat 100 mg twice a day at home. There's been no breakthrough seizures. Vimpat level is pending. Recommend reattempt MRI of the brain after getting pain medication to patient. Neurologically he is improved since yesterday and is more alert. He did have an EEG which showed some abnormal sharp wave activity. The patient's family is requesting transfer to [facility] for EMU monitoring of seizure activity. He has not had any breakthrough seizures in the hospital but their concern is that he may not require the anticonvulsant medication that he may not be having seizures.
[2018-03-10] MEDS: INSULIN ASPART 100 UNIT/ML 1 ML 10 ML VIAL SQ SCH ×2 (07:29→12:25)
[2018-03-10 07:38] LABS: Glucose,Whole Blood 151 mg/dL (75-99)
[2018-03-10 08:07] LABS: Basophils % (A) 0 %; Eosinophils # (A) 0.1 k/uL (0-0.7); Eosinophils % (A) 3 %; HCT 24.1 % (39.0-53.0); HGB 7.5 gm/dL (13.0-17.5); Hypochromasia Moderate; Lymphocytes # (A) 0.6 k/uL (1.0-4.8); Lymphocytes % (A) 13 %; MCH 26.8 pg (25.0-35.0); MCV 86.5 fL (80.0-100.0); Mean Platelet Volume 6.6; Monocytes # (A) 0.3 k/uL (0-1.0); Monocytes % (A) 7 %; Neutrophils # (A) 3.7 k/uL (1.3-7.7); Neutrophils % (A) 77 %; Platelet Count 135 k/uL (150-450); RBC 2.78 m/uL (4.30-5.90); RDW 15.4 % (11.5-15.5); WBC 4.8 k/uL (3.8-10.6)
[2018-03-10 08:27] LABS: Anion Gap 5 mmol/L; Blood Urea Nitrogen 17 mg/dL (9-20); Calcium 8.1 mg/dL (8.4-10.2); Carbon Dioxide 25 mmol/L (22-30); Chloride 110 mmol/L (98-107); Glucose 133 mg/dL (74-99); Potassium 4.1 mmol/L (3.5-5.1); Sodium 140 mmol/L (137-145)
[2018-03-10] MEDS: APIXABAN 5 MG TAB PO SCH (08:33)
[2018-03-10] MEDS: LACOSAMIDE 50 MG TABLET PEG/G-TUBE SCH (08:33)
[2018-03-10] MEDS: METOPROLOL TARTRATE 12.5 MG TAB PO SCH (08:33)
[2018-03-10] MEDS: ASPIRIN 81 MG PO SCH (08:33)
[2018-03-10] MEDS: amLODIPine 5 MG TAB PEG/G-TUBE SCH (08:33)
[2018-03-10] MEDS: LISINOPRIL 5 MG TAB PO SCH (08:33)
[2018-03-10] MEDS: PANTOPRAZOLE SODIUM 40 MG GRANULE PKT PEG/G-TUBE SCH (08:34)
[2018-03-10] MEDS: LINEZOLID 600 MG TAB PO SCH (08:34)
[2018-03-10 11:39] LABS: Glucose,Whole Blood 142 mg/dL (75-99)
--- NOTE | 2018-03-10 14:20 | P.DS ---
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 Patients is at the bedside and reports that patient has not slept in 3 days. She states he has been staring at the ceiling for over 24 hours. She reports he has been agitated when she is trying to provide care to him which is not his baseline. He has not been eating or drinking much over the past few days and she reports she increased his tube feedings. Patient was recently admitted to the hospital from 02/15/2018-02/17/2018 due to altered mental status. He was discharged with new onset seizures. He was started on Keppra which has since been changed to Vimpat. Chest x-ray completed in the emergency room reveals no acute process. CT of the brain was negative for acute process. Diffuse age related cerebral atrophy. Laboratory data upon admission revealed WBC 4.8. Hemoglobin 9.4. Platelet count 189. Sodium 138. Potassium 4.4. BUN 16. Creatinine 0.88. Lactic acid 0.9. Troponin negative x 1. TSH 1.910. 03/09/2018 Patient examined at the bedside. Patient is much more alert today. Speech is more clear today and easier to understand. Patient was started on Seroquel last night. He did finally get some sleep per daughter. Tube feedings infusing. Patient tolerating well. Patient also tolerating some PO intake. Patient underwent EEG revealing presence of bitemporal sharp waves and diffuse slowing of EEG background, compatible with seizure disorder of deep level origin. Patient unable to have MRI of the brain due to kyphosis and unable to fit into MRI coil and unable to scan head without the coil per telemetry tech. Patient sees Dr. Espino outpatient. May require outpatient open MRI after discharge from hospital. 03/10/2018 Patient seen and examined in bed. He is awake alert and oriented 2 at this time. Which is his baseline. reports sleeping much better. He is on tube feeds. We discussed the free water he needs. He is on Seroquel to help him with sleeping. Dr. Boyle it seen her in adjust his medications. He was unable to have an MRI inpatient as he was unable to lay flat due to kyphosis. We discussed at length him possibly going to [facility] for further evaluation outpatient. Although he may follow-up with Dr. Patel initially and we will see him in the office in 1 week to further discuss the matter. His symptoms seem more consistent with sleep deprivation leading to delirium and any infection at this visit. Patient Condition at Discharge: Fair Plan - Discharge Summary Discharge Rx Participant: No New Discharge Prescriptions: New QUEtiapine [SEROquel] 50 mg PO HS #30 tab Continue Metoprolol Tartrate [Lopressor] 12.5 mg PEG/G-TUBE BID HYDROcodone/APAP 7.5-325MG [[place] 7.5-325] 1 tab PO Q6HR PRN PRN Reason: Pain Apixaban [Eliquis] 5 mg PO BID amLODIPine [Norvasc] 5 mg PEG/G-TUBE DAILY Pantoprazole Sodium 40 mg PO DAILY Lisinopril [Prinivil] 5 mg PEG/G-TUBE DAILY Linezolid 600 mg PO BID #60 tablet Sulfamethox-Tmp 800-160Mg [Bactrim DS 800-160 mg] 1 tab PO Q12HR #60 tab levETIRAcetam [Keppra] 750 mg PO BID #60 tab Cetirizine HCl 10 mg PEG/G-TUBE DAILY Aspirin EC [Ecotrin Low Dose] 81 mg PEG/G-TUBE DAILY Lacosamide [Vimpat] 100 mg PO BID Acetaminophen [Tylenol Extra Strength] 1,000 mg PEG/G-TUBE Q6H PRN PRN Reason: Pain Discharge Medication List Metoprolol Tartrate [Lopressor] 12.5 mg PEG/G-TUBE BID 09/21/16 [History] Apixaban [Eliquis] 5 mg PO BID 07/27/17 [History] HYDROcodone/APAP 7.5-325MG [[place] 7.5-325] 1 tab PO Q6HR PRN 07/27/17 [History] Lisinopril [Prinivil] 5 mg PEG/G-TUBE DAILY 10/03/17 [History] Pantoprazole Sodium 40 mg PO DAILY 10/03/17 [History] amLODIPine [Norvasc] 5 mg PEG/G-TUBE DAILY 10/03/17 [History] Linezolid 600 mg PO BID #60 tablet 02/17/18 [Rx] Sulfamethox-Tmp 800-160Mg [Bactrim DS 800-160 mg] 1 tab PO Q12HR #60 tab [Rx] levETIRAcetam [Keppra] 750 mg PO BID #60 tab 02/17/18 [Rx] Acetaminophen [Tylenol Extra Strength] 1,000 mg PEG/G-TUBE Q6H PRN 03/07/18 [ History] Aspirin EC [Ecotrin Low Dose] 81 mg PEG/G-TUBE DAILY 03/07/18 [History] Cetirizine HCl 10 mg PEG/G-TUBE DAILY 03/07/18 [History] Lacosamide [Vimpat] 100 mg PO BID 03/07/18 [History] QUEtiapine [SEROquel] 50 mg PO HS #30 tab 03/10/18 [Rx] Follow up Appointment(s)/Referral(s): [facility], [NON-STAFF] - Gilmer Lopez MD [Primary Care Provider] - 1-2 days Collins Patel MD [Family Provider] - 1 Week Ambulatory/Diagnostic Orders: Complete Blood Count w/diff [LAB.AMB] Time Frame: 3 Days, Location: None Selected Comprehensive Metabolic Panel [LAB.AMB] Location: None Selected Discharge Disposition: HOME WITH HOME HEALTH SERVICES
[2018-03-10 14:42] VITALS: BP 134/67; PULSE 66; RESP 20; TEMP 98.1
[2018-03-10 15:24] VITALS: BMI 26.3
--- NOTE | 2018-03-10 15:37 | FL ---
EXAMINATION TYPE: FL barium swallow w video DATE OF EXAM: 03/10/2018 COMPARISON: NONE HISTORY: Failed bedside, aspiration. TECHNIQUE: Fluoroscopy. FINDINGS: Fluoroscopic guidance was provided for the procedure performed in conjunction with the [facility] pathology department. Please see complete report forthcoming from the Speech Pathology departmen t. Liquid consistency was administered. Fluoroscopy time 27 seconds Number of images: 0. No aspiration or penetration was evident. No significant pooling was observed in the vallecula. There was normal propulsion of the bolus. IMPRESSION: 1. Normal swallowing with thin liquids.
[2018-03-10 17:18] LABS: Glucose,Whole Blood 149 mg/dL (75-99)
== END 2018-03-10 18:22 | disposition home health service (06) | DRG 880 ==
LOC: EC 13:18 → 4SSUR 15:54
PROVIDERS: ADMIT Family Medicine; ATTEND Family Medicine
DX: F05 Delirium due to known physiological condition (principal); L89.154 Pressure ulcer of sacral region, stage 4; G82.20 Paraplegia, unspecified; M46.26 Osteomyelitis of vertebra, lumbar region; E11.69 Type 2 diabetes mellitus with other specified complication; G40.909 Epilepsy, unspecified, not intractable, without status epilepticus; N31.9 Neuromuscular dysfunction of bladder, unspecified; E86.0 Dehydration; D64.9 Anemia, unspecified; E78.5 Hyperlipidemia, unspecified; F32.9 Major depressive disorder, single episode, unspecified; F41.9 Anxiety disorder, unspecified; G47.00 Insomnia, unspecified; I10 Essential (primary) hypertension; K21.9 Gastro-esophageal reflux disease without esophagitis; N42.9 Disorder of prostate, unspecified; Z74.01 Bed confinement status; Z79.01 Long term (current) use of anticoagulants; Z79.899 Other long term (current) drug therapy; Z79.82 Long term (current) use of aspirin; Z93.3 Colostomy status; Z95.1 Presence of aortocoronary bypass graft; Z87.891 Personal history of nicotine dependence; Z86.718 Personal history of other venous thrombosis and embolism; Z86.14 Personal history of Methicillin resistant Staphylococcus aureus infection; Z87.440 Personal history of urinary (tract) infections; Z86.69 Personal history of other diseases of the nervous system and sense organs; Z90.49 Acquired absence of other specified parts of digestive tract; Z93.1 Gastrostomy status; Z82.5 Family history of asthma and other chronic lower respiratory diseases; Z80.9 Family history of malignant neoplasm, unspecified
CPT/HCPCS: 36415; 70450; 71046; 74230; 80048; 80053; 80306; 81001; 82550; 82553; 82803; 83605; 83735; 84443; 84484; 85025; 85610; 85730; 87040; 93005; 95819; 96361; 96374; 96375; 99285

== ENCOUNTER 2018-03-16 08:58 | Observation (INO) | payer BC ==
[2018-03-16] MEDS ORDERED: SODIUM CHLORIDE 0.9% 1,000 ML IV STA ×2 (09:03)
[2018-03-16] MEDS ORDERED: SODIUM CHLORIDE 0.9% 500 ML 500 ML IV STA (09:03)
--- NOTE | 2018-03-16 09:06 | ED ---
Altered Mental Status HPI - General Chief Complaint: Altered Mental Status Stated Complaint: altered Time Seen by Provider: 03/16/18 09:03 Source: patient, family, RN notes reviewed, old records reviewed Mode of arrival: EMS Limitations: no limitations - History of Present Illness Initial Comments: This is a 62-year-old male the ER for evaluation. Patient coming in for evaluation of unresponsiveness and altered mental state. A she has a lot of chronic debility, para paralyzed, the patient remains unresponsive currently. Family denies recent complaints, patient was apparently doing better that he was today last night. The symptoms do continue to wax and wane with this patient. He has had multiple ER visits and hospitalizations for this. Patient was on his way to wound care today with ause wasn't acting appropriately, becoming more unresponsive. Patient remains that way currently, unable to give history history. From MD Complaint: altered mental status, decreased responsiveness -: hour(s) Severity: moderate Consistency of Symptoms: waxing and waning, getting worse Context: history of similar presentation Associated Symptoms: denies other symptoms - Related Data Home Medications Medication Instructions Recorded Confirmed Apixaban [Eliquis] 5 mg PO BID 07/27/17 03/16/18 HYDROcodone/APAP 7.5-325MG [[place] 1 tab PO Q6HR PRN 07/27/17 03/16/18 7.5-325] Pantoprazole Sodium 40 mg PO DAILY 10/03/17 03/16/18 Lacosamide [Vimpat] 100 mg PO BID 03/07/18 03/16/18 Acetaminophen [Tylenol Extra 1,000 mg PO Q6HR PRN 03/16/18 03/16/18 Strength] Aspirin EC [Ecotrin Low Dose] 81 mg PO DAILY 03/16/18 03/16/18 Cetirizine HCl [Zyrtec] 10 mg PO DAILY 03/16/18 03/16/18 Ferrous Sulfate [Feosol] 325 mg PO BID 03/16/18 03/16/18 Lisinopril [Prinivil] 5 mg PO DAILY 03/16/18 03/16/18 Metoprolol Tartrate [Lopressor] 12.5 mg PO BID 03/16/18 03/16/18 amLODIPine [Norvasc] 5 mg PO DAILY 01/10/19 01/10/19 Previous Rx's Medication Instructions Recorded Linezolid 600 mg PO BID #60 tablet 02/17/18 Sulfamethox-Tmp 800-160Mg [Bactrim 1 tab PO Q12HR #60 tab 02/17/18 DS 800-160 mg] levETIRAcetam [Keppra] 750 mg PO BID #60 tab 02/17/18 QUEtiapine [SEROquel] 50 mg PO HS #30 tab 03/10/18 Allergies Allergy/AdvReac Type Severity Reaction Status Date / Time No Known Allergies Allergy Verified 03/16/18 10:00 Review of Systems ROS Statement: Those systems with pertinent positive or pertinent negative responses have been documented in the HPI. ROS Other: All systems not noted in ROS Statement are negative. Past Medical History Past Medical History: Diabetes Mellitus, Deep Vein Thrombosis (DVT), GERD/Reflux , Hyperlipidemia, Hypertension, Prostate Disorder Additional Past Medical History / Comment(s): DVT B/L LE, anxiety/depression, difficulty sleeping,history of osteomeylitis- coccyx wound has had hyerbaric tx and wound vac. currently has coccyx wound goes to [facility] every thurd at 9am.,uti' s. 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 Paraplegia SINCE LAMINECTOMY FEB 15, 2017PARALIZED WAIST DOWN SINCE LAMINECTOMY FEB 15, 2017; abd hernia. per "pt gets tube feeding but eats 3 meals a day but carefull with thin liquids or any tough meat. crush all meds put thru peg tube" History of Any Multi-Drug Resistant Organisms: MRSA, VRE Date of last positivie culture/infection: 01/12/18 MRSA; 07/28/17 VRE MDRO Source:: Hip-MRSA & VRE Past Surgical History: Back Surgery, Bowel Resection, Coronary Bypass/CABG, Heart Catheterization Additional Past Surgical History / Comment(s): LAMINECTOMY 02/15/17-has had total of 4 sx, lt arm picc line-since removed. COLONOSCOPY, 5 vessel cabg. COLOSTOMY(was done d/t non healing coccyx wound. SUpra PUBIC CATH (changed last 02-11-18), picc line-since removed. peg tube. PICC Line Past Anesthesia/Blood Transfusion Reactions: Previous Problems w/ Anesthesia Additional Past Anesthesia/Blood Transfusion Reaction / Comment(s): SLOW TO COME OUT OF ANESTHESIA AFTER LAST PROCEDURE. blood transfusion-no reaction Past Psychological History: Anxiety, Depression Smoking Status: Former smoker Past Alcohol Use History: Occasional Past Drug Use History: None Reported - Past Family History Brother(s) Family Medical History: Cancer Mother Additional Family Medical History / Comment(s): emphysema Father Additional Family Medical History / Comment(s): emphysema General Exam Limitations: altered mental status General appearance: alert, in no apparent distress Head exam: Present: atraumatic, normocephalic, normal inspection Eye exam: Present: normal appearance, PERRL, EOMI. Absent: scleral icterus, conjunctival injection, periorbital swelling ENT exam: Present: normal exam, mucous membranes moist Neck exam: Present: normal inspection. Absent: tenderness, meningismus, lymphadenopathy Respiratory exam: Present: normal lung sounds bilaterally. Absent: respiratory distress, wheezes, rales, rhonchi, stridor Cardiovascular Exam: Present: regular rate, normal rhythm, normal heart sounds. Absent: systolic murmur, diastolic murmur, rubs, gallop, clicks GI/Abdominal exam: Present: soft, normal bowel sounds. Absent: distended, tenderness, guarding, rebound, rigid Extremities exam: Present: normal inspection, full ROM, normal capillary refill. Absent: tenderness, pedal edema, joint swelling, calf tenderness Back exam: Present: normal inspection Neurological exam: Present: alert, oriented X3, CN II-XII intact Psychiatric exam: Present: normal affect, normal mood Skin exam: Present: warm, dry, intact, normal color. Absent: rash Course Vital Signs 03/16/18 03/16/18 03/16/18 09:00 10:00 10:30 Temperature 98.9 F Pulse Rate 77 74 69 Respiratory 18 12 4 L Rate Blood Pressure 82/46 78/43 91/51 O2 Sat by Pulse 96 100 100 Oximetry - Reevaluation(s) Reevaluation #1: 03/16/18 11:44 Medical record is reviewed Reevaluation #2: 03/16/18 11:44 Patient currently with no improvement in symptoms Medical Decision Making - Medical Decision Making 62 male the ER for evaluation of unresponsiveness. Patient remains unresponsive , patient will be admitted for monitoring of medications and continued evaluation of sleeping medications - Lab Data Result diagrams: 03/16/18 09:10 03/16/18 09:10 Lab Results 03/16/18 03/16/18 03/16/18 Range/Units 09:10 09:10 09:10 WBC 4.5 (3.8-10.6) k/uL RBC 3.11 L (4.30-5.90) m/uL Hgb 8.4 L (13.0-17.5) gm/dL Hct 26.4 L (39.0-53.0) % MCV 85.1 (80.0-100.0) fL MCH 26.9 (25.0-35.0) pg MCHC 31.6 (31.0-37.0) g/dL RDW 16.2 H (11.5-15.5) % Plt Count 244 (150-450) k/uL Neutrophils % 71 % Lymphocytes % 18 % Monocytes % 6 % Eosinophils % 2 % Basophils % 1 % Neutrophils # 3.2 (1.3-7.7) k/uL Lymphocytes # 0.8 L (1.0-4.8) k/uL Monocytes # 0.3 (0-1.0) k/uL Eosinophils # 0.1 (0-0.7) k/uL Basophils # 0.0 (0-0.2) k/uL Hypochromasia Slight Anisocytosis Slight PT (9.0-12.0) sec INR (<1.2) APTT (22.0-30.0) sec Sodium (137-145) mmol/L Potassium (3.5-5.1) mmol/L Chloride (98-107) mmol/L Carbon Dioxide (22-30) mmol/L Anion Gap mmol/L BUN (9-20) mg/dL Creatinine (0.66-1.25) mg/dL Est GFR (CKD-EPI)AfAm (>60 ml/min/1.73 sqM) Est GFR (CKD-EPI)NonAf (>60 ml/min/1.73 sqM) Glucose (74-99) mg/dL Plasma Lactic Acid Stanley 0.9 (0.7-2.0) mmol/L Calcium (8.4-10.2) mg/dL Phosphorus (2.5-4.5) mg/dL Magnesium (1.6-2.3) mg/dL Total Bilirubin (0.2-1.3) mg/dL AST (17-59) U/L ALT (21-72) U/L Alkaline Phosphatase (38-126) U/L Ammonia <9 (<30) umol/L Total Creatine Kinase 64 (55-170) U/L CK-MB (CK-2) 3.8 H (0.0-2.4) ng/mL CK-MB (CK-2) Rel Index 5.9 Troponin I <0.012 (0.000-0.034) ng/mL Total Protein (6.3-8.2) g/dL Albumin (3.5-5.0) g/dL Urine Color Urine Appearance (Clear) Urine pH (5.0-8.0) Ur Specific [place] (1.001-1.035) Urine Protein (Negative) Urine Glucose (UA) (Negative) Urine Ketones (Negative) Urine Blood (Negative) Urine Nitrite (Negative) Urine Bilirubin (Negative) Urine Urobilinogen (<2.0) mg/dL Ur Leukocyte Esterase (Negative) Urine RBC (0-5) /hpf Urine WBC (0-5) /hpf Ur Squamous Epith Cells (0-4) /hpf Amorphous Sediment (None) /hpf Urine Bacteria (None) /hpf Urine Mucus (None) /hpf 03/16/18 03/16/18 03/16/18 Range/Units 09:10 09:10 09:15 WBC (3.8-10.6) k/uL RBC (4.30-5.90) m/uL Hgb (13.0-17.5) gm/dL Hct (39.0-53.0) % MCV (80.0-100.0) fL MCH (25.0-35.0) pg MCHC (31.0-37.0) g/dL RDW (11.5-15.5) % Plt Count (150-450) k/uL Neutrophils % % Lymphocytes % % Monocytes % % Eosinophils % % Basophils % % Neutrophils # (1.3-7.7) k/uL Lymphocytes # (1.0-4.8) k/uL Monocytes # (0-1.0) k/uL Eosinophils # (0-0.7) k/uL Basophils # (0-0.2) k/uL Hypochromasia Anisocytosis PT 11.3 (9.0-12.0) sec INR 1.1 (<1.2) APTT 28.1 (22.0-30.0) sec Sodium 140 (137-145) mmol/L Potassium 3.9 (3.5-5.1) mmol/L Chloride 108 H (98-107) mmol/L Carbon Dioxide 27 (22-30) mmol/L Anion Gap 5 mmol/L BUN 14 (9-20) mg/dL Creatinine 0.87 (0.66-1.25) mg/dL Est GFR (CKD-EPI)AfAm >90 (>60 ml/min/1.73 sqM) Est GFR (CKD-EPI)NonAf >90 (>60 ml/min/1.73 sqM) Glucose 121 H (74-99) mg/dL Plasma Lactic Acid Stanley (0.7-2.0) mmol/L Calcium 8.8 (8.4-10.2) mg/dL Phosphorus 3.8 (2.5-4.5) mg/dL Magnesium 2.2 (1.6-2.3) mg/dL Total Bilirubin 0.4 (0.2-1.3) mg/dL AST 19 (17-59) U/L ALT 29 (21-72) U/L Alkaline Phosphatase 81 (38-126) U/L Ammonia (<30) umol/L Total Creatine Kinase (55-170) U/L CK-MB (CK-2) (0.0-2.4) ng/mL CK-MB (CK-2) Rel Index Troponin I (0.000-0.034) ng/mL Total Protein 6.5 (6.3-8.2) g/dL Albumin 2.9 L (3.5-5.0) g/dL Urine Color Yellow Urine Appearance Cloudy (Clear) Urine pH 6.0 (5.0-8.0) Ur Specific [place] 1.010 (1.001-1.035) Urine Protein Trace H (Negative) Urine Glucose (UA) Negative (Negative) Urine Ketones Negative (Negative) Urine Blood Moderate H (Negative) Urine Nitrite Negative (Negative) Urine Bilirubin Negative (Negative) Urine Urobilinogen <2.0 (<2.0) mg/dL Ur Leukocyte Esterase Large H (Negative) Urine RBC 27 H (0-5) /hpf Urine WBC 36 H (0-5) /hpf Ur Squamous Epith Cells 1 (0-4) /hpf Amorphous Sediment Rare H (None) /hpf Urine Bacteria Occasional H (None) /hpf Urine Mucus Few H (None) /hpf - EKG Data -: EKG Interpreted by Me (EKG shows normal sinus rhythm rate of 74, ID 136, QRS 102, QTc 452) - Radiology Data Radiology results: report reviewed (Chest x-rays negative for acute disease), image reviewed Disposition Clinical Impression: Psychosis, Altered mental status, Delirium due to general medical condition Disposition: ADMITTED IP TO THIS [facility] Condition: Undetermined Is patient prescribed a controlled substance at d/c from ED?: No Referrals: Gilmer Lopez MD [Primary Care Provider] - 1-2 days
[2018-03-16 09:39] LABS: Anisocytosis Slight; Basophils % (A) 1 %; Eosinophils # (A) 0.1 k/uL (0-0.7); Eosinophils % (A) 2 %; HCT 26.4 % (39.0-53.0); HGB 8.4 gm/dL (13.0-17.5); Hypochromasia Slight; Lymphocytes # (A) 0.8 k/uL (1.0-4.8); Lymphocytes % (A) 18 %; MCH 26.9 pg (25.0-35.0); MCHC 31.6 g/dL (31.0-37.0); MCV 85.1 fL (80.0-100.0); Mean Platelet Volume 5.7; Monocytes # (A) 0.3 k/uL (0-1.0); Monocytes % (A) 6 %; Neutrophils # (A) 3.2 k/uL (1.3-7.7); Neutrophils % (A) 71 %; Platelet Count 244 k/uL (150-450); RBC 3.11 m/uL (4.30-5.90); RDW 16.2 % (11.5-15.5); WBC 4.5 k/uL (3.8-10.6)
[2018-03-16 09:40] LABS: INR 1.1 (<1.2); Partial Thromboplastin Time 28.1 sec (22.0-30.0); Prothrombin Time 11.3 sec (9.0-12.0)
[2018-03-16 09:42] LABS: Ammonia <9 umol/L (<30); Lactic Acid, Venous 0.9 mmol/L (0.7-2.0)
[2018-03-16 09:43] LABS: ALT 29 U/L (21-72); AST 19 U/L (17-59); Albumin 2.9 g/dL (3.5-5.0); Alkaline Phosphatase 81 U/L (38-126); Anion Gap 5 mmol/L; Blood Urea Nitrogen 14 mg/dL (9-20); Calcium 8.8 mg/dL (8.4-10.2); Carbon Dioxide 27 mmol/L (22-30); Chloride 108 mmol/L (98-107); Glucose 121 mg/dL (74-99); Magnesium 2.2 mg/dL (1.6-2.3); Phosphorus 3.8 mg/dL (2.5-4.5); Potassium 3.9 mmol/L (3.5-5.1); Sodium 140 mmol/L (137-145); Total Bilirubin 0.4 mg/dL (0.2-1.3); Total Protein 6.5 g/dL (6.3-8.2)
--- NOTE | 2018-03-16 09:50 | XR ---
EXAMINATION TYPE: XR chest 2V DATE OF EXAM: 03/16/2018 COMPARISON: Chest x-ray from 9 days ago. HISTORY: Unresponsive and weakness. TECHNIQUE: Frontal and lateral views of the chest are obtained. FINDINGS: Post CABG changes with mediastinal clips and sternal wires is redemonstrated. Low lung vol umes are again seen. There is no focal air space opacity, pleural effusion, or pneumothorax seen. Th e cardiac silhouette size is within normal limits. Surgical change to the cervical spine is redemonst rated. Overlying EKG leads are again seen. IMPRESSION: Low lung volumes without acute cardiopulmonary process. No significant change from prior chest x-ray.
[2018-03-16 10:08] LABS: Amorphous Sediment,Urine Rare /hpf; Appearance,Urine Cloudy (Clear); Bacteria,Urine Occasional /hpf; Bilirubin,Urine Negative (Negative); Blood,Urine Moderate (Negative); Color,Urine Yellow; Glucose,Urine (UA) Negative (Negative); Ketones,Urine Negative (Negative); Leukocyte Esterase,Urine Large (Negative); Mucus,Urine Few /hpf; Nitrite,Urine Negative (Negative); Protein,Urine Trace (Negative); RBC,Urine 27 /hpf (0-5); Squamous Epithelial Cell,Urine 1 /hpf (0-4); Urobilinogen,Urine <2.0 mg/dL (<2.0); WBC,Urine 36 /hpf (0-5)
[2018-03-16 10:29] LABS: Creatine Kinase 64 U/L (55-170)
[2018-03-16 10:42] LABS: Creatine Kinase MB 3.8 ng/mL (0.0-2.4); Troponin I <0.012 ng/mL (0.000-0.034)
[2018-03-16 17:15] LABS: Glucose,Whole Blood 111 mg/dL (75-99)
[2018-03-16] MEDS ORDERED: ACETAMINOPHEN TAB 500 MG TAB PO PRN (18:05)
[2018-03-16] MEDS: HYDROcodone/APAP 7.5-325MG 1 EACH TAB PO PRN (18:22)
[2018-03-16] MEDS: SULFAMETHOX-TMP 800-160MG 1 EACH TAB PO SCH (20:20)
[2018-03-16] MEDS: APIXABAN 5 MG TAB PO SCH (20:20)
[2018-03-16] MEDS: FERROUS SULFATE 325 MG TAB PO SCH (20:20)
[2018-03-16] MEDS: METOPROLOL TARTRATE 12.5 MG TAB PO SCH (20:20)
[2018-03-16] MEDS: LACOSAMIDE 50 MG TABLET PO SCH (20:20)
[2018-03-16] MEDS: LINEZOLID 600 MG TAB PO SCH (20:20)
[2018-03-16] MEDS ORDERED: QUEtiapine 25 MG TAB PO SCH (21:00)
[2018-03-16 21:14] LABS: Glucose,Whole Blood 137 mg/dL (75-99)
[2018-03-17 07:15] LABS: Glucose,Whole Blood 124 mg/dL (75-99)
[2018-03-17] MEDS: METOPROLOL TARTRATE 12.5 MG TAB PO SCH (07:27)
[2018-03-17] MEDS: FERROUS SULFATE 325 MG TAB PO SCH (07:27)
[2018-03-17] MEDS: LACOSAMIDE 50 MG TABLET PO SCH (07:28)
[2018-03-17] MEDS: SULFAMETHOX-TMP 800-160MG 1 EACH TAB PO SCH (07:29)
[2018-03-17] MEDS: APIXABAN 5 MG TAB PO SCH (07:29)
[2018-03-17] MEDS: LINEZOLID 600 MG TAB PO SCH (07:30)
[2018-03-17] MEDS ORDERED: PANTOPRAZOLE 40 MG TABLET PO SCH (07:30)
[2018-03-17] MEDS ORDERED: LISINOPRIL 5 MG TAB PO SCH (09:00)
[2018-03-17] MEDS ORDERED: amLODIPine 5 MG TAB PO SCH (09:00)
[2018-03-17] MEDS ORDERED: LORATADINE 10 MG TAB PO SCH (09:00)
[2018-03-17] MEDS ORDERED: ASPIRIN 81 MG PO SCH (09:00)
[2018-03-17 09:06] LABS: Hemoglobin A1C 5.7 % (4.0-6.0)
[2018-03-17 12:04] LABS: Glucose,Whole Blood 117 mg/dL (75-99)
[2018-03-17] MEDS: HYDROcodone/APAP 7.5-325MG 1 EACH TAB PO PRN (13:13)
[2018-03-17 13:32] VITALS: BMI 30.5
[2018-03-17 15:40] VITALS: BP 100/58; PULSE 56; RESP 16; TEMP 98.2
--- NOTE | 2018-03-17 16:10 | P.TRANS ---
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 This is the patient's third admission recently for similar symptoms. The first admission was thought to be due to seizure activity. His most recent admission was thought to be secondary to delirium as the patient had not slept for 3 or 4 days. The patient is currently back to his baseline but his family is frustrated regarding his readmissions and his behavior. Patient will be transferred to [facility] for further neuro evaluation as there is no neurology service available at this time at current facility. Patient is stable at the time of transfer. Discharge diagnosis: Acute delirium, etiology unclear, this is patients third admission recently for similar symptoms History of laminectomy, February 2017 Paraplegia, s/p laminectomy History of three previous back surgeries prior to laminectomy in 2017 History of stage IV coccyx wound, present on admission, with hx of multiple antibiotic therapies, wound vac multiple times, and hyperbaric oxygen treatments History of suprapubic catheter insertion and colostomy, in an attempt to keep wound clean and improve healing Neurogenic bladder Osteomyelitis of lumbar spine Diabetes mellitus, type II Hypertension Hyperlipidemia History of bilateral DVT History of Guillain-Suazo syndrome History of MRSA, coccyx wound History of VRE, coccyx wound History of seizure disorder Nurse practitioner note has been reviewed by physician. Signing provider agrees with the documented findings, assessment, and plan of care. Patient Condition at Discharge: Stable Plan - Transfer Summary Transfer Medications: Active Medications Generic Name Dose Route Start Last Admin Trade Name Freq PRN Reason Stop Dose Admin Acetaminophen 1,000 mg 03/16/18 18:05 Tylenol Tab PO Q6HR PRN Pain Hydrocodone Bitart/Acetaminophen 1 each 03/16/18 18:05 03/17/18 13:13 [place] 7.5-325 PO 1 each Q6HR PRN Administration Pain Amlodipine Besylate 5 mg 03/17/18 09:00 03/17/18 07:28 Norvasc PO 5 mg DAILY ALIRIO Administration Apixaban 5 mg 03/16/18 21:00 03/17/18 07:29 Eliquis PO 5 mg BID ALIRIO Administration Aspirin 81 mg 03/17/18 09:00 03/17/18 07:27 Aspirin PO 81 mg DAILY ALIRIO Administration Ferrous Sulfate 325 mg 03/16/18 21:00 03/17/18 07:27 Feosol PO 325 mg BID ALIRIO Administration Lacosamide 100 mg 03/16/18 21:00 03/17/18 07:28 Vimpat PO 100 mg BID ALIRIO Administration Levetiracetam 750 mg 03/16/18 21:00 03/17/18 07:29 Keppra PO 750 mg BID ALIRIO Administration Linezolid 600 mg 03/16/18 21:00 03/17/18 07:30 Zyvox PO 600 mg BID ALIRIO Administration Lisinopril 5 mg 03/17/18 09:00 03/17/18 07:28 Zestril PO 5 mg DAILY ALIRIO Administration Loratadine 10 mg 03/17/18 09:00 03/17/18 07:28 Claritin PO 10 mg DAILY ALIRIO Administration Metoprolol Tartrate 12.5 mg 03/16/18 21:00 03/17/18 07:27 Lopressor PO 12.5 mg BID ALIRIO Administration Pantoprazole Sodium 40 mg 03/17/18 07:30 03/17/18 07:28 Protonix PO 40 mg [id number] ALIRIO Administration Quetiapine Fumarate 25 mg 03/16/18 21:00 03/16/18 20:20 Seroquel PO 25 mg HS ALIRIO Administration Trimethoprim/Sulfamethoxazole 1 each 03/16/18 21:00 03/17/18 07:29 Bactrim Ds PO 1 each Q12HR ALIRIO Administration Follow up Appointment(s)/Referral(s): Gilmer Lopez MD [Primary Care Provider] - 1-2 days
== END 2018-03-17 16:40 | disposition short-term general hospital (02) ==
LOC: EC 08:58 → 4MS4W 12:11 → 4SSUR 15:26
PROVIDERS: ADMIT Family Medicine; ATTEND Family Medicine
DX: R41.0 Disorientation, unspecified (principal); E11.9 Type 2 diabetes mellitus without complications; E78.5 Hyperlipidemia, unspecified; S31.000A Unspecified open wound of lower back and pelvis without penetration into retroperitoneum, initial encounter; I10 Essential (primary) hypertension; K21.9 Gastro-esophageal reflux disease without esophagitis; M46.26 Osteomyelitis of vertebra, lumbar region; N42.9 Disorder of prostate, unspecified; G82.20 Paraplegia, unspecified; N31.9 Neuromuscular dysfunction of bladder, unspecified; G40.909 Epilepsy, unspecified, not intractable, without status epilepticus; G61.0 Guillain-Barre syndrome; R53.81 Other malaise; Z86.718 Personal history of other venous thrombosis and embolism; Z79.01 Long term (current) use of anticoagulants; Z79.82 Long term (current) use of aspirin; Z87.891 Personal history of nicotine dependence; Z95.1 Presence of aortocoronary bypass graft; Z86.14 Personal history of Methicillin resistant Staphylococcus aureus infection; Z93.1 Gastrostomy status; Z87.440 Personal history of urinary (tract) infections; Z82.5 Family history of asthma and other chronic lower respiratory diseases; Z93.59 Other cystostomy status; Z86.19 Personal history of other infectious and parasitic diseases
CPT/HCPCS: 96361 ×3; 96360; 99285; 36415; 93005; 80053; 82140; 82550; 82553; 83605; 83735; 84100; 84484; 85025; 85610; 85730; 81001; 87040; 87086; 83036; 71046; G0378 ×2

== ENCOUNTER 2018-04-20 11:37 | Inpatient (IN) | payer BC ==
[2018-04-20] MEDS ORDERED: SODIUM CHLORIDE 0.9% 500 ML 500 ML IV STA (11:52)
[2018-04-20 12:37] LABS: Anisocytosis Slight; Basophils % (A) 0 %; Eosinophils # (A) 0.1 k/uL (0-0.7); Eosinophils % (A) 3 %; HCT 26.6 % (39.0-53.0); HGB 8.3 gm/dL (13.0-17.5); Hypochromasia Moderate; Lymphocytes # (A) 0.7 k/uL (1.0-4.8); Lymphocytes % (A) 15 %; MCH 27.5 pg (25.0-35.0); MCHC 31.2 g/dL (31.0-37.0); MCV 88.2 fL (80.0-100.0); Mean Platelet Volume 6.1; Monocytes # (A) 0.3 k/uL (0-1.0); Monocytes % (A) 6 %; Neutrophils # (A) 3.4 k/uL (1.3-7.7); Neutrophils % (A) 75 %; Platelet Count 130 k/uL (150-450); RBC 3.01 m/uL (4.30-5.90); RDW 18.9 % (11.5-15.5); WBC 4.5 k/uL (3.8-10.6)
--- NOTE | 2018-04-20 12:43 | ED ---
General Adult HPI - General Chief complaint: Recheck/Abnormal Lab/Rx Stated complaint: Low BP Time Seen by Provider: 04/20/18 11:41 Source: patient, family, RN notes reviewed, old records reviewed Mode of arrival: wheelchair Limitations: physical limitation - History of Present Illness Initial comments: 62-year-old male history of Lewy body dementia, history is bedbound, presenting from the wound care center for evaluation of hypotension. Concern for sepsis and dehydration. Patient does have significant decubitus ulcer which is being followed by Wound Center as well as the ulcer on the left heel. Patient does complain of some mild cough over the past several days. No fever or chills. No abdominal pain. No vomiting or diarrhea. Patient has indwelling suprapubic catheter as well as colostomy. Denies pain complaints. - Related Data Home Medications Medication Instructions Recorded Confirmed Apixaban [Eliquis] 5 mg PO BID 07/27/17 04/20/18 HYDROcodone/APAP 7.5-325MG [Dawson 1 tab PO Q6HR PRN 07/27/17 04/20/18 7.5-325] Pantoprazole Sodium 40 mg PO DAILY 10/03/17 04/20/18 Lacosamide [Vimpat] 100 mg PO BID 03/07/18 04/20/18 Acetaminophen [Tylenol Extra 1,000 mg PO Q6HR PRN 03/16/18 04/20/18 Strength] Aspirin EC [Ecotrin Low Dose] 81 mg PO DAILY 03/16/18 04/20/18 Cetirizine HCl [Zyrtec] 10 mg PO DAILY 03/16/18 04/20/18 Ferrous Sulfate [Feosol] 325 mg PO BID 03/16/18 04/20/18 Lisinopril [Prinivil] 5 mg PO DAILY 03/16/18 04/20/18 Metoprolol Tartrate [Lopressor] 12.5 mg PO BID 03/16/18 04/20/18 amLODIPine [Norvasc] 5 mg PO DAILY 03/16/18 04/20/18 Ascorbic Acid [Vitamin C] 500 mg PO BID 04/06/18 04/20/18 Carbidopa-Levodopa 10-100 mg 1 each PO TID 04/06/18 04/20/18 [Sinemet 10-100] Divalproex Sodium [Depakote] 500 mg PO BID 04/06/18 04/20/18 Donepezil [Aricept] 5 mg PO HS 04/06/18 04/20/18 Melatonin 3 mg PO HS 04/06/18 04/20/18 Zinc Sulfate [Orazinc] 220 mg PO DAILY 04/06/18 04/20/18 Previous Rx's Medication Instructions Recorded levETIRAcetam [Keppra] 750 mg PO BID #60 tab 02/17/18 QUEtiapine [SEROquel] 50 mg PO HS #30 tab 03/10/18 Allergies Allergy/AdvReac Type Severity Reaction Status Date / Time No Known Allergies Allergy Verified 04/20/18 12:08 Review of Systems ROS Statement: Those systems with pertinent positive or pertinent negative responses have been documented in the HPI. ROS Other: All systems not noted in ROS Statement are negative. Past Medical History Past Medical History: Diabetes Mellitus, Deep Vein Thrombosis (DVT), GERD/Reflux , Hyperlipidemia, Hypertension, Prostate Disorder Additional Past Medical History / Comment(s): Spouse states pt has pulled out IVs and other equipment and has thrown himself out of bed in the past- recommends side rails be up at all times, DVT B/L LE, insomnia, osteomeylitis- coccyx wound has had hyerbaric tx and wound vac in the past-now nearly healed, [facility] thurd at 9am-needs airbed, colostomy d/t coccyx wound, uti's, guillain barre syndrome, neurogenic bladder has suprapubic cath-last changed 03/14, paraplegia SINCE LAMINECTOMY FEB 15, 2017-PARALIZED WAIST DOWN, abd hernia , per pt has peg tube but is now able to eat, limited ROM with neck, NIDDM now diet controlled/possible bilateral foot neuropathy. History of Any Multi-Drug Resistant Organisms: MRSA, VRE Date of last positivie culture/infection: 01/12/18 MRSA; 07/28/17 VRE MDRO Source:: Hip-MRSA & VRE Past Surgical History: Back Surgery, Bowel Resection, Coronary Bypass/CABG, Heart Catheterization Additional Past Surgical History / Comment(s): LAMINECTOMY 02/15/17-has had total of 4 sx, 2016 CABG-5 vessel, piccs-none now, COLONOSCOPY, COLOSTOMY(was done d/t non healing coccyx wound. Supra PUBIC CATH (changed last 03-14-18), picc lines-since removed, peg tube. PICC Line Past Anesthesia/Blood Transfusion Reactions: Previous Problems w/ Anesthesia Additional Past Anesthesia/Blood Transfusion Reaction / Comment(s): SLOW TO COME OUT OF ANESTHESIA. Past blood transfusion-no reaction Past Psychological History: Anxiety, Depression Smoking Status: Former smoker Past Alcohol Use History: Occasional Past Drug Use History: None Reported - Past Family History Brother(s) Family Medical History: Cancer Mother Additional Family Medical History / Comment(s): emphysema Father Additional Family Medical History / Comment(s): emphysema General Exam Limitations: physical limitation General appearance: alert, in no apparent distress Head exam: Present: atraumatic, normocephalic Eye exam: Present: normal appearance, PERRL ENT exam: Present: mucous membranes dry Neck exam: Present: normal inspection. Absent: tenderness, meningismus Respiratory exam: Present: normal lung sounds bilaterally. Absent: respiratory distress, wheezes, rhonchi Cardiovascular Exam: Present: regular rate, normal rhythm GI/Abdominal exam: Present: soft, other (Colostomy, and suprapubic catheter). Absent: distended, tenderness, guarding Neurological exam: Present: alert Psychiatric exam: Present: normal affect, normal mood Skin exam: Present: warm, dry. Absent: cyanosis, diaphoretic Course Vital Signs 04/20/18 04/20/18 04/20/18 11:47 12:00 13:00 Temperature 98.5 F Pulse Rate 55 L 55 L 55 L Respiratory 18 18 18 Rate Blood Pressure 97/55 97/55 97/52 O2 Sat by Pulse 98 99 99 Oximetry Medical Decision Making - Medical Decision Making 62-year-old presenting for evaluation of hypotension, dehydration, and concern for sepsis. Patient has indwelling suprapubic catheter, he has sacral decubitus ulcer which is being followed by 1 cm. He was seen by his primary care physician today and noted to be hypotensive. Sent to the emergency department. Workup in the emergency department reveals normal white blood cell count, hemoglobin is low at 0.3 but this is stable. Patient has a normal CMP, influenza A, chest x-ray negative for focal pneumonia, urinalysis does show signs of infection with greater than 182 red cells. Urine culture and blood cultures are pending. Patient is started on ceftriaxone as previous urine culture result was susceptible to Rocephin. He will be admitted for IV hydration, IV antibiotics and awaiting culture results. Case discussed with Dr. Lopez who will admit. - Lab Data Result diagrams: 04/20/18 12:10 04/20/18 12:10 Lab Results 04/20/18 04/20/18 04/20/18 Range/Units 12:10 12:10 12:10 WBC 4.5 (3.8-10.6) k/uL RBC 3.01 L (4.30-5.90) m/uL Hgb 8.3 L (13.0-17.5) gm/dL Hct 26.6 L (39.0-53.0) % MCV 88.2 (80.0-100.0) fL MCH 27.5 (25.0-35.0) pg MCHC 31.2 (31.0-37.0) g/dL RDW 18.9 H (11.5-15.5) % Plt Count 130 L (150-450) k/uL Neutrophils % 75 % Lymphocytes % 15 % Monocytes % 6 % Eosinophils % 3 % Basophils % 0 % Neutrophils # 3.4 (1.3-7.7) k/uL Lymphocytes # 0.7 L (1.0-4.8) k/uL Monocytes # 0.3 (0-1.0) k/uL Eosinophils # 0.1 (0-0.7) k/uL Basophils # 0.0 (0-0.2) k/uL Hypochromasia Moderate Anisocytosis Slight Sodium 140 (137-145) mmol/L Potassium 4.7 (3.5-5.1) mmol/L Chloride 107 (98-107) mmol/L Carbon Dioxide 28 (22-30) mmol/L Anion Gap 5 mmol/L BUN 21 H (9-20) mg/dL Creatinine 0.58 L (0.66-1.25) mg/dL Est GFR (CKD-EPI)AfAm >90 (>60 ml/min/1.73 sqM) Est GFR (CKD-EPI)NonAf >90 (>60 ml/min/1.73 sqM) Glucose 93 (74-99) mg/dL Plasma Lactic Acid Stanley (0.7-2.0) mmol/L Calcium 8.3 L (8.4-10.2) mg/dL Total Bilirubin 0.6 (0.2-1.3) mg/dL AST 29 (17-59) U/L ALT 30 (21-72) U/L Alkaline Phosphatase 62 (38-126) U/L Total Protein 6.1 L (6.3-8.2) g/dL Albumin 2.7 L (3.5-5.0) g/dL Urine Color Urine Appearance (Clear) Urine pH (5.0-8.0) Ur Specific [place] (1.001-1.035) Urine Protein (Negative) Urine Glucose (UA) (Negative) Urine Ketones (Negative) Urine Blood (Negative) Urine Nitrite (Negative) Urine Bilirubin (Negative) Urine Urobilinogen (<2.0) mg/dL Ur Leukocyte Esterase (Negative) Urine RBC (0-5) /hpf Urine WBC (0-5) /hpf Ur Squamous Epith Cells (0-4) /hpf Urine Mucus (None) /hpf Influenza Type A RNA Not Detected (Not Detectd) Influenza Type B (PCR) Not Detected (Not Detectd) 04/20/18 04/20/18 Range/Units 12:10 12:40 WBC (3.8-10.6) k/uL RBC (4.30-5.90) m/uL Hgb (13.0-17.5) gm/dL Hct (39.0-53.0) % MCV (80.0-100.0) fL MCH (25.0-35.0) pg MCHC (31.0-37.0) g/dL RDW (11.5-15.5) % Plt Count (150-450) k/uL Neutrophils % % Lymphocytes % % Monocytes % % Eosinophils % % Basophils % % Neutrophils # (1.3-7.7) k/uL Lymphocytes # (1.0-4.8) k/uL Monocytes # (0-1.0) k/uL Eosinophils # (0-0.7) k/uL Basophils # (0-0.2) k/uL Hypochromasia Anisocytosis Sodium (137-145) mmol/L Potassium (3.5-5.1) mmol/L Chloride (98-107) mmol/L Carbon Dioxide (22-30) mmol/L Anion Gap mmol/L BUN (9-20) mg/dL Creatinine (0.66-1.25) mg/dL Est GFR (CKD-EPI)AfAm (>60 ml/min/1.73 sqM) Est GFR (CKD-EPI)NonAf (>60 ml/min/1.73 sqM) Glucose (74-99) mg/dL Plasma Lactic Acid Stanley 1.2 (0.7-2.0) mmol/L Calcium (8.4-10.2) mg/dL Total Bilirubin (0.2-1.3) mg/dL AST (17-59) U/L ALT (21-72) U/L Alkaline Phosphatase (38-126) U/L Total Protein (6.3-8.2) g/dL Albumin (3.5-5.0) g/dL Urine Color Yellow Urine Appearance Turbid (Clear) Urine pH 6.0 (5.0-8.0) Ur Specific [place] 1.018 (1.001-1.035) Urine Protein 2+ H (Negative) Urine Glucose (UA) Negative (Negative) Urine Ketones Negative (Negative) Urine Blood Trace H (Negative) Urine Nitrite Negative (Negative) Urine Bilirubin Negative (Negative) Urine Urobilinogen <2.0 (<2.0) mg/dL Ur Leukocyte Esterase Large H (Negative) Urine RBC 14 H (0-5) /hpf Urine WBC >182 H (0-5) /hpf Ur Squamous Epith Cells 10 H (0-4) /hpf Urine Mucus Many H (None) /hpf Influenza Type A RNA (Not Detectd) Influenza Type B (PCR) (Not Detectd) Disposition Clinical Impression: UTI (urinary tract infection), Hypotension, Dehydration Disposition: ADMITTED IP TO THIS [facility] Condition: Stable Is patient prescribed a controlled substance at d/c from ED?: No Referrals: Gilmer Lopez MD [Primary Care Provider] - 1-2 days Decision to Admit Reason: Admit from EC Decision Date: 04/20/18 Decision Time: 14:44
[2018-04-20 12:46] LABS: ALT 30 U/L (21-72); AST 29 U/L (17-59); Albumin 2.7 g/dL (3.5-5.0); Alkaline Phosphatase 62 U/L (38-126); Anion Gap 5 mmol/L; Blood Urea Nitrogen 21 mg/dL (9-20); Calcium 8.3 mg/dL (8.4-10.2); Carbon Dioxide 28 mmol/L (22-30); Chloride 107 mmol/L (98-107); Glucose 93 mg/dL (74-99); Sodium 140 mmol/L (137-145); Total Bilirubin 0.6 mg/dL (0.2-1.3); Total Protein 6.1 g/dL (6.3-8.2)
[2018-04-20 12:54] LABS: Potassium 4.7 mmol/L (3.5-5.1)
--- NOTE | 2018-04-20 13:06 | XR ---
EXAMINATION TYPE: XR chest 2V DATE OF EXAM: 04/20/2018 COMPARISON: Prior chest x-ray 03/16/2018 HISTORY: Hypotension TECHNIQUE: Frontal and lateral views of the chest are obtained. FINDINGS: There is no focal air space opacity, pleural effusion, or pneumothorax seen. The cardiac silhouette size is within normal limits. The osseous structures are intact. There are cardiac leads . Patient is post median sternotomy. Arthropathy present at the acromioclavicular joints. IMPRESSION: No acute cardiopulmonary process.
[2018-04-20 13:09] LABS: Appearance,Urine Turbid (Clear); Bilirubin,Urine Negative (Negative); Blood,Urine Trace (Negative); Color,Urine Yellow; Glucose,Urine (UA) Negative (Negative); Ketones,Urine Negative (Negative); Leukocyte Esterase,Urine Large (Negative); Mucus,Urine Many /hpf; Nitrite,Urine Negative (Negative); Protein,Urine 2+ (Negative); RBC,Urine 14 /hpf (0-5); Specific Gravity,Urine 1.018 (1.001-1.035); Squamous Epithelial Cell,Urine 10 /hpf (0-4); Urobilinogen,Urine <2.0 mg/dL (<2.0); WBC,Urine >182 /hpf (0-5)
[2018-04-20] MEDS: SODIUM CHLORIDE 0.9% 1,000 ML IV SCH (14:14)
[2018-04-20] MEDS ORDERED: ACETAMINOPHEN TAB 325 MG TAB PO PRN (14:37)
[2018-04-20] MEDS ORDERED: NALOXONE 0.4 MG/ML 1 ML VIAL IV PRN (14:37)
[2018-04-20] MEDS: ASCORBIC ACID 500 MG TAB PO SCH (21:12)
[2018-04-20] MEDS: FERROUS SULFATE 325 MG TAB PO SCH (21:12)
[2018-04-20] MEDS: METOPROLOL TARTRATE 12.5 MG TAB PO SCH (21:12)
[2018-04-20] MEDS: APIXABAN 5 MG TAB PO SCH (21:12)
[2018-04-20] MEDS: QUEtiapine 50 MG TAB PO SCH (21:13)
[2018-04-20] MEDS: DONEPEZIL 5 MG TAB PO SCH (21:13)
[2018-04-20] MEDS: MELATONIN 3 MG TABLET PO SCH (21:13)
[2018-04-20] MEDS: LACOSAMIDE 50 MG TABLET PO SCH (21:13)
[2018-04-20] MEDS: CARBIDOPA-LEVODOPA 10-100 MG 1 EACH TAB PO SCH (21:14)
[2018-04-20] MEDS: DIVALPROEX 500 MG TABLET.DR PO SCH (22:09)
[2018-04-21] MEDS: SODIUM CHLORIDE 0.9% 1,000 ML IV SCH ×3 (03:15→21:13)
[2018-04-21] MEDS: PANTOPRAZOLE 40 MG TABLET PO SCH (10:37)
[2018-04-21] MEDS: METOPROLOL TARTRATE 12.5 MG TAB PO SCH ×2 (10:38→20:23)
[2018-04-21] MEDS: LISINOPRIL 5 MG TAB PO SCH (10:40)
[2018-04-21] MEDS: LORATADINE 10 MG TAB PO SCH (10:40)
[2018-04-21] MEDS: APIXABAN 5 MG TAB PO SCH ×2 (10:40→21:13)
[2018-04-21] MEDS: LACOSAMIDE 50 MG TABLET PO SCH ×2 (10:40→21:13)
[2018-04-21] MEDS: ZINC SULFATE 220 MG CAP PO SCH (10:40)
[2018-04-21] MEDS: ASCORBIC ACID 500 MG TAB PO SCH ×2 (10:41→21:13)
[2018-04-21] MEDS: amLODIPine 5 MG TAB PO SCH (10:41)
[2018-04-21] MEDS: ASPIRIN 81 MG PO SCH (10:41)
[2018-04-21] MEDS: CARBIDOPA-LEVODOPA 10-100 MG 1 EACH TAB PO SCH ×3 (10:41→21:13)
[2018-04-21] MEDS: DIVALPROEX 500 MG TABLET.DR PO SCH ×2 (10:41→21:13)
[2018-04-21] MEDS: FERROUS SULFATE 325 MG TAB PO SCH ×2 (10:41→21:13)
[2018-04-21] MEDS: COLLAGENASE 250 UNIT/GM OINTMENT 30 GM TUBE TOPICAL SCH (10:42)
--- NOTE | 2018-04-21 13:42 | P.HPIM ---
History of Present Illness This is a pleasant 62 years old male with past medical history of dementia, diabetes mellitus, GERD, hyperlipidemia, hypertension, seizure disorder, DVT on Eliquis, osteomyelitis of the coccygeal on that follow-up with the wound clinic every , status post colostomy, neurogenic bladder status post suprapubic catheter, paraplegia since laminectomy in February 2017 and paralyzed from waist down, previous infection with MRSA and VRE. And Parkinson disease Patient was sent from the wound care center for hypotension. Patient denies dysuria, he has suprapubic copy last changed on 04/11/2018. No suprapubic tenderness, no purulent discharge. No surrounding cellulitis. He complains also from right knee pain with no history of trauma. Since admission and his been afebrile, blood pressure on admission was 97/55, and currently 114/73 with heart rate of 52, after he received 1 L of normal saline bolus. WBC is 4.5K, hemoglobin 8.3. Creatinine 0.5. Liver enzymes and dressed of BMP were unremarkable. Urinalysis is suspicious for infection. If there was a checked and was negative. Urine culture was sent and the result is pending. He has chest x-ray which showed no acute cardiopulmonary process as per Radiologist. Patient was started on ceftriaxone. Review of Systems CONSTITUTIONAL: No fever, no malaise, no fatigue. HEENT: No recent visual problems or hearing problems. Denied any sore throat. CARDIOVASCULAR: No orthopnea, PND, no palpitations, no syncope. PULMONARY: No shortness of breath, no cough, no hemoptysis. GASTROINTESTINAL: No diarrhea, no nausea, no vomiting, no abdominal pain. Normoactive bowel sounds. NEUROLOGICAL: No headaches, no weakness, no numbness. HEMATOLOGICAL: Denies any bleeding or petechiae. GENITOURINARY: Denies any burning micturition, frequency, or urgency. MUSCULOSKELETAL/RHEUMATOLOGICAL: Denies any joint pain, swelling, or any muscle pain. ENDOCRINE: Denies any polyuria or polydipsia. Past Medical History Past Medical History: Dementia, Diabetes Mellitus, Deep Vein Thrombosis (DVT), GERD/Reflux, Hyperlipidemia, Hypertension, Prostate Disorder, Seizure Disorder Additional Past Medical History / Comment(s): Spouse states pt has pulled out IVs and other equipment and has thrown himself out of bed in the past- recommends side rails be up at all times, DVT B/L LE, insomnia, osteomeylitis- coccyx wound has had hyerbaric tx and wound vac in the past- goes to [facility] , colostomy d/t coccyx wound, uti's, guillain barre syndrome, neurogenic bladder has suprapubic cath-last changed 04-11-18, paraplegia SINCE LAMINECTOMY FEB 15, 2017-PARALIZED WAIST DOWN, abd hernia, per pt has peg tube but is now able to eat, limited ROM with neck, NIDDM now diet controlled/possible bilateral foot neuropathy. stated "that the dementia pt has also has parkinson like symptoms". History of Any Multi-Drug Resistant Organisms: MRSA, VRE Date of last positivie culture/infection: 01/12/18 MRSA; 07/28/17 VRE MDRO Source:: Hip-MRSA & VRE Past Surgical History: Back Surgery, Bowel Resection, Coronary Bypass/CABG, Heart Catheterization Additional Past Surgical History / Comment(s): LAMINECTOMY 02/15/17-has had total of 4 sx, 2015 CABG-5 vessel, piccs-none now, COLONOSCOPY, COLOSTOMY(was done d/t non healing coccyx wound. Supra PUBIC CATH (changed last 03-14-18), picc lines-since removed, peg tube. PICC Line Past Anesthesia/Blood Transfusion Reactions: Previous Problems w/ Anesthesia Additional Past Anesthesia/Blood Transfusion Reaction / Comment(s): when pt had 2 sx within a short time from each other ,he had diffiuclty waking up. Past blood transfusion-no reaction Smoking Status: Former smoker - Past Family History Brother(s) Family Medical History: Cancer Mother Additional Family Medical History / Comment(s): emphysema Father Additional Family Medical History / Comment(s): emphysema Medications and Allergies Home Medications Medication Instructions Recorded Confirmed Type Apixaban [Eliquis] 5 mg PO BID 07/27/17 04/20/18 History HYDROcodone/APAP 7.5-325MG [Braman 1 tab PO Q6HR PRN 07/27/17 04/20/18 History 7.5-325] Pantoprazole Sodium 40 mg PO DAILY 10/03/17 04/20/18 History levETIRAcetam [Keppra] 750 mg PO BID #60 tab 12/14/18 02/14/19 Rx Lacosamide [Vimpat] 100 mg PO BID 03/07/18 04/20/18 History QUEtiapine [SEROquel] 50 mg PO HS #30 tab 03/10/18 04/20/18 Rx Acetaminophen [Tylenol Extra 1,000 mg PO Q6HR PRN 03/16/18 04/20/18 History Strength] Aspirin EC [Ecotrin Low Dose] 81 mg PO DAILY 03/16/18 04/20/18 History Cetirizine HCl [Zyrtec] 10 mg PO DAILY 03/16/18 04/20/18 History Ferrous Sulfate [Feosol] 325 mg PO BID 03/16/18 04/20/18 History Lisinopril [Prinivil] 5 mg PO DAILY 03/16/18 04/20/18 History Metoprolol Tartrate [Lopressor] 12.5 mg PO BID 03/16/18 04/20/18 History amLODIPine [Norvasc] 5 mg PO DAILY 03/16/18 04/20/18 History Ascorbic Acid [Vitamin C] 500 mg PO BID 04/06/18 04/20/18 History Carbidopa-Levodopa 10-100 mg 1 each PO TID 04/06/18 04/20/18 History [Sinemet 10-100] Divalproex Sodium [Depakote] 500 mg PO BID 04/06/18 04/20/18 History Donepezil [Aricept] 5 mg PO HS 04/06/18 04/20/18 History Melatonin 3 mg PO HS 04/06/18 04/20/18 History Zinc Sulfate [Orazinc] 220 mg PO DAILY 04/06/18 04/20/18 History Allergies Allergy/AdvReac Type Severity Reaction Status Date / Time No Known Allergies Allergy Verified 04/20/18 12:08 Physical Exam Vitals: Vital Signs Temp Pulse Pulse Resp BP BP Pulse Ox 04/21/18 07:00 97.5 F L 52 L 16 114/73 100 04/21/18 04:53 20 04/21/18 03:37 16 04/21/18 00:44 97.9 F 61 16 119/58 94 L 04/20/18 19:00 98.8 F 61 16 110/70 100 04/20/18 16:00 98.3 F 55 L 16 109/66 98 04/20/18 15:30 97.3 F L 59 L 18 99/56 93 L 04/20/18 13:00 55 L 18 97/52 99 Intake and Output 04/20/18 04/21/18 04/21/18 22:59 06:59 14:59 Intake Total 716 600 Balance 716 600 Intake: Intake, IV Titration 600 Amount Sodium Chloride 0.9% 1, 600 000 ml @ 75 mls/hr IV . [id number] [facility] Rx#:[id number] Oral 716 Other: Voiding Method Indwelling Catheter Indwelling Catheter Indwelling Catheter GENERAL: The patient is alert and oriented x3, not in any acute distress. Well developed, well nourished. HEENT: Pupils are round and equally reacting to light. EOMI. No scleral icterus. No conjunctival pallor. Normocephalic, atraumatic. No pharyngeal erythema. No thyromegaly. CARDIOVASCULAR: S1 and S2 present. No murmurs, rubs, or gallops. PULMONARY: Chest is clear to auscultation, no wheezing or crackles. ABDOMEN: Soft, nontender, nondistended, normoactive bowel sounds. No palpable organomegaly. MUSCULOSKELETAL: No joint swelling or deformity. EXTREMITIES: No cyanosis, clubbing, or pedal edema. NEUROLOGICAL: Gross neurological examination did not reveal any focal deficits. SKIN: No rashes. Results CBC & Chem 7: 04/20/18 12:10 04/20/18 12:10 Labs: Abnormal Lab Results - Last 24 Hours (Table) 04/20/18 04/20/18 04/20/18 Range/Units 12:10 12:10 12:40 RBC 3.01 L (4.30-5.90) m/uL Hgb 8.3 L (13.0-17.5) gm/dL Hct 26.6 L (39.0-53.0) % RDW 18.9 H (11.5-15.5) % Plt Count 130 L (150-450) k/uL Lymphocytes # 0.7 L (1.0-4.8) k/uL BUN 21 H (9-20) mg/dL Creatinine 0.58 L (0.66-1.25) mg/dL Calcium 8.3 L (8.4-10.2) mg/dL Total Protein 6.1 L (6.3-8.2) g/dL Albumin 2.7 L (3.5-5.0) g/dL Urine Protein 2+ H (Negative) Urine Blood Trace H (Negative) Ur Leukocyte Esterase Large H (Negative) Urine RBC 14 H (0-5) /hpf Urine WBC >182 H (0-5) /hpf Ur Squamous Epith Cells 10 H (0-4) /hpf Urine Mucus Many H (None) /hpf Microbiology - Last 24 Hours (Table) 04/20/18 12:40 Urine Culture - Preliminary Urine,Suprapubic Thrombosis Risk Factor Assmnt - Choose All That Apply Any of the Below Risk Factors Present?: Yes Each Factor Represents 1 point: Medical pt on bed rest, Obesity (BMI >25) Other Risk Factors: Yes Each Risk Factor Represents 2 Points: Age 61-74 years, Patient confined to bed Each Risk Factor Represents 3 Points: History of DVT/PE Other congenital or acquired thrombophilia - If yes, enter type in comment: No Thrombosis Risk Factor Assessment Total Risk Factor Score: 9 Thrombosis Risk Factor Assessment Level: High Risk Assessment and Plan Assessment: Hypotension and dehydration on admission, improved Urosepsis, urine culture has been sent Right knee pain Decubitus ulcer with history of coccygeal osteomyelitis, status post wound VAC, follow-up with the wound care center History of dementia Diabetes mellitus Hypertension Hyperlipidemia History of GERD History of seizure disorder on Keppra History of DVT on Eliquis Plan: This is a pleasant 62 years old male who presents because of urosepsis. Continue antibiotics and IV fluids. Follow-up urine culture. Labs and medication were reviewed.. Continue same treatment. Continue with symptomatic treatment. Resume home medication. Monitor lytes and vitals. DVT and GI prophylaxis. Further recommendations of the clinical course of the patient DVT prophylaxis: Eliquis GI Prophylaxis: Protonix PT/OT: Pending Prognosis is guarded
[2018-04-21 14:56] VITALS: BMI 30.8
--- NOTE | 2018-04-21 15:07 | XR ---
EXAMINATION TYPE: XR knee complete RT DATE OF EXAM: 04/21/2018 COMPARISON: 01/02/2013 HISTORY: Right knee pain under side TECHNIQUE: Three-view right knee FINDINGS: No acute displaced fractures are evident. Some mild joint space narrowing is present. No sheng int effusion is evident. IMPRESSION: 1. Mild degenerative joint changes. 2. No acute osseous abnormality evident.
[2018-04-21] MEDS: HYDROcodone/APAP 7.5-325MG 1 EACH TAB PO PRN (16:41)
[2018-04-21] MEDS ORDERED: SODIUM CHLORIDE 0.9% 250 ML IV STA (20:42)
[2018-04-21] MEDS: MELATONIN 3 MG TABLET PO SCH (21:13)
[2018-04-21] MEDS: QUEtiapine 50 MG TAB PO SCH (21:13)
[2018-04-21] MEDS: DONEPEZIL 5 MG TAB PO SCH (21:13)
[2018-04-22] MEDS: SODIUM CHLORIDE 0.9% 1,000 ML IV SCH ×4 (03:34→23:03)
[2018-04-22 06:03] LABS: Glucose,Whole Blood 102 mg/dL (75-99)
[2018-04-22] MEDS: ASCORBIC ACID 500 MG TAB PO SCH ×2 (08:51→20:17)
[2018-04-22] MEDS: ASPIRIN 81 MG PO SCH (08:51)
[2018-04-22] MEDS: LACOSAMIDE 50 MG TABLET PO SCH ×2 (08:52→20:17)
[2018-04-22] MEDS: DIVALPROEX 500 MG TABLET.DR PO SCH ×2 (08:52→20:17)
[2018-04-22] MEDS: METOPROLOL TARTRATE 12.5 MG TAB PO SCH ×2 (08:53→20:15)
[2018-04-22] MEDS: FERROUS SULFATE 325 MG TAB PO SCH ×2 (08:53→20:17)
[2018-04-22] MEDS: PANTOPRAZOLE 40 MG TABLET PO SCH (08:54)
[2018-04-22] MEDS: ZINC SULFATE 220 MG CAP PO SCH (08:54)
[2018-04-22] MEDS: LORATADINE 10 MG TAB PO SCH (08:54)
[2018-04-22] MEDS: APIXABAN 5 MG TAB PO SCH ×2 (08:54→20:17)
[2018-04-22] MEDS: CARBIDOPA-LEVODOPA 10-100 MG 1 EACH TAB PO SCH ×3 (08:55→20:17)
[2018-04-22] MEDS: amLODIPine 5 MG TAB PO SCH (09:00)
[2018-04-22] MEDS: LISINOPRIL 5 MG TAB PO SCH (09:00)
[2018-04-22] MEDS: COLLAGENASE 250 UNIT/GM OINTMENT 30 GM TUBE TOPICAL SCH (09:07)
[2018-04-22] MEDS ORDERED: SODIUM CHLORIDE 0.9% 500 ML 500 ML IV ONE (09:09)
[2018-04-22 09:20] LABS: Anion Gap 5 mmol/L; Blood Urea Nitrogen 16 mg/dL (9-20); Calcium 8.1 mg/dL (8.4-10.2); Carbon Dioxide 24 mmol/L (22-30); Chloride 113 mmol/L (98-107); Glucose 93 mg/dL (74-99); Potassium 3.6 mmol/L (3.5-5.1); Sodium 142 mmol/L (137-145)
[2018-04-22 09:25] LABS: Anisocytosis Slight; Basophils % (A) 1 %; Eosinophils # (A) 0.1 k/uL (0-0.7); Eosinophils % (A) 5 %; HCT 22.8 % (39.0-53.0); Hypochromasia Marked; Lymphocytes # (A) 0.7 k/uL (1.0-4.8); Lymphocytes % (A) 22 %; MCH 28.4 pg (25.0-35.0); MCV 91.7 fL (80.0-100.0); Mean Platelet Volume 6.3; Monocytes # (A) 0.2 k/uL (0-1.0); Monocytes % (A) 8 %; Neutrophils # (A) 2.1 k/uL (1.3-7.7); Neutrophils % (A) 64 %; Platelet Count 112 k/uL (150-450); RBC 2.48 m/uL (4.30-5.90); RDW 18.6 % (11.5-15.5); WBC 3.2 k/uL (3.8-10.6)
--- NOTE | 2018-04-22 19:24 | P.PN ---
Subjective This is a pleasant 62 years old male with past medical history of dementia, diabetes mellitus, GERD, hyperlipidemia, hypertension, seizure disorder, DVT on Eliquis, osteomyelitis of the coccygeal on that follow-up with the wound clinic every , status post colostomy, neurogenic bladder status post suprapubic catheter, paraplegia since laminectomy in February 2017 and paralyzed from waist down, previous infection with MRSA and VRE. And Parkinson disease Patient was sent from the wound care center for hypotension. Patient denies dysuria, he has suprapubic copy Dr. roger changed on 04/11/2018. No suprapubic tenderness, no purulent discharge. No surrounding cellulitis. He complains also from right knee pain with no history of trauma. Since admission and his been afebrile, blood pressure on admission was 97/55, and currently 114/73 with heart rate of 52, after he received 1 L of normal saline bolus. WBC is 4.5K, hemoglobin 8.3. Creatinine 0.5. Liver enzymes and dressed of BMP were unremarkable. Urinalysis is suspicious for infection. If there was a checked and was negative. Urine culture was sent and the result is pending. He has chest x-ray which showed no acute cardiopulmonary process as per Radiologist. Patient was started on ceftriaxone. 04/22/2018 Patient is a fully awake and oriented, not in distress or pain. He still has suprapubic catheter in a Place. However blood pressure yesterday was on the low side as well as this morning, his Coreg was decreased down to 3.125 mg twice a day, we held Norvasc and lisinopril and give him another bolus of normal saline, his blood pressure improved from 90s/50s up to 122/62 currently. Continue with IV fluids but decrease the rate from 150 down to 75 mL/h . Will consult infectious disease for management of his UTI, and urology for his suprapubic catheter management. Right knee x-ray is negative and no more pain in his right knee area Review of systems CONSTITUTIONAL: No fever, no malaise, no fatigue. HEENT: No recent visual problems or hearing problems. Denied any sore throat. CARDIOVASCULAR: No orthopnea, PND, no palpitations, no syncope. PULMONARY: No shortness of breath, no cough, no hemoptysis. GASTROINTESTINAL: No diarrhea, no nausea, no vomiting, no abdominal pain. Normoactive bowel sounds. NEUROLOGICAL: No headaches, no weakness, no numbness. HEMATOLOGICAL: Denies any bleeding or petechiae. MUSCULOSKELETAL/RHEUMATOLOGICAL: Denies any joint pain, swelling, or any muscle pain. ENDOCRINE: Denies any polyuria or polydipsia. Medication: Tylenol, Norvasc (held) , lisinopril (stopped), Eliquis, vitamin C, Sinemet, ceftriaxone, Depakote, Aricept, ferrous sulfate, Robitussin, Dulce, Vimpat, Coreg, loratadine, Keppra,, protonix, seroquel, normal saline, zinc sulfate. Objective - Vital Signs Vital signs: Vital Signs Temp 97.6 F 04/22/18 19:07 Pulse 54 L 04/22/18 19:07 Resp 18 04/22/18 19:07 BP 122/62 04/22/18 19:07 Pulse Ox 100 04/22/18 19:07 Intake & Output 04/22/18 04/22/18 04/23/18 06:59 18:59 06:59 Intake Total 590 736 Output Total 400 500 Balance 190 236 Intake: Intake, IV Titration 500 Amount Sodium Chloride 0.9% 500 500 ml 500 ml @ 999 mls/hr IV .Q31M ONE Rx#:[id number] Oral 590 236 Output: Urine 400 500 Suprapubic 400 Other: Voiding Method Indwelling Catheter Indwelling Catheter - Exam GENERAL: The patient is alert and oriented x3, not in any acute distress. Well developed, well nourished. HEENT: Pupils are round and equally reacting to light. EOMI. No scleral icterus. No conjunctival pallor. Normocephalic, atraumatic. No pharyngeal erythema. No thyromegaly. CARDIOVASCULAR: S1 and S2 present. No murmurs, rubs, or gallops. PULMONARY: Chest is clear to auscultation, no wheezing or crackles. -ABDOMEN: Soft, nontender, nondistended, normoactive bowel sounds. No palpable organomegaly. Suprapubic catheter in place MUSCULOSKELETAL: No joint swelling or deformity. EXTREMITIES: No cyanosis, clubbing, or pedal edema. -NEUROLOGICAL: Gross neurological examination did not reveal any focal deficits. Paraplegia SKIN: No rashes. - Labs CBC & Chem 7: 04/22/18 08:36 04/22/18 08:36 Labs: Abnormal Lab Results - Last 24 Hours (Table) 04/22/18 04/22/18 04/22/18 Range/Units 05:50 08:36 08:36 WBC 3.2 L (3.8-10.6) k/uL RBC 2.48 L (4.30-5.90) m/uL Hgb 7.0 L (13.0-17.5) gm/dL Hct 22.8 L (39.0-53.0) % RDW 18.6 H (11.5-15.5) % Plt Count 112 L (150-450) k/uL Lymphocytes # 0.7 L (1.0-4.8) k/uL Chloride 113 H (98-107) mmol/L Creatinine 0.56 L (0.66-1.25) mg/dL POC Glucose (mg/dL) 102 H (75-99) mg/dL Calcium 8.1 L (8.4-10.2) mg/dL Microbiology - Last 24 Hours (Table) 04/20/18 12:10 Blood Culture - Preliminary Blood No Growth after 48 hours 04/20/18 12:40 Urine Culture - Final Urine,Suprapubic Debby albicans Assessment and Plan Assessment: Hypotension and dehydration on admission, improved Urosepsis, urine culture has been sent Right knee pain, improved Decubitus ulcer with history of coccygeal osteomyelitis, status post wound VAC, follow-up with the wound care center History of dementia Diabetes mellitus Hypertension Hyperlipidemia History of GERD History of seizure disorder on Keppra History of DVT on Eliquis Plan: This is a pleasant 62 years old male who presents because of urosepsis. Continue antibiotics and IV fluids. Follow-up urine culture. Consult infectious disease and urology services. Labs and medication were reviewed.. Continue same treatment. Continue with symptomatic treatment. Resume home medication. Monitor lytes and vitals. DVT and GI prophylaxis. Further recommendations of the clinical course of the patient DVT prophylaxis: Eliquis GI Prophylaxis: Protonix Prognosis is guarded
[2018-04-22] MEDS: DONEPEZIL 5 MG TAB PO SCH (20:17)
[2018-04-22] MEDS: QUEtiapine 50 MG TAB PO SCH (20:17)
[2018-04-22] MEDS: MELATONIN 3 MG TABLET PO SCH (20:17)
[2018-04-22] MEDS: HYDROcodone/APAP 7.5-325MG 1 EACH TAB PO PRN (20:20)
[2018-04-22] MEDS ORDERED: ANIDULAFUNGIN 200 MG in SODIUM CHLORIDE 0.9% 200 ML IVPB ONE (22:19)
[2018-04-23 06:56] LABS: Glucose,Whole Blood 82 mg/dL (75-99)
[2018-04-23 08:19] LABS: Anisocytosis Slight; Basophils % (A) 1 %; Eosinophils # (A) 0.2 k/uL (0-0.7); Eosinophils % (A) 5 %; Hypochromasia Slight; Lymphocytes # (A) 0.8 k/uL (1.0-4.8); Lymphocytes % (A) 26 %; MCH 28.8 pg (25.0-35.0); MCHC 33.3 g/dL (31.0-37.0); MCV 86.6 fL (80.0-100.0); Mean Platelet Volume 6.8; Monocytes # (A) 0.2 k/uL (0-1.0); Monocytes % (A) 6 %; Neutrophils # (A) 1.8 k/uL (1.3-7.7); Neutrophils % (A) 60 %; Platelet Count 118 k/uL (150-450); RBC 2.21 m/uL (4.30-5.90)
[2018-04-23 08:22] LABS: HCT 19.1 % (39.0-53.0); HGB 6.4 gm/dL (13.0-17.5)
[2018-04-23 08:29] LABS: Anion Gap 3 mmol/L; Blood Urea Nitrogen 11 mg/dL (9-20); Calcium 7.8 mg/dL (8.4-10.2); Carbon Dioxide 25 mmol/L (22-30); Chloride 116 mmol/L (98-107); Glucose 83 mg/dL (74-99); Potassium 3.5 mmol/L (3.5-5.1); Sodium 144 mmol/L (137-145)
[2018-04-23] MEDS: DIVALPROEX 500 MG TABLET.DR PO SCH ×2 (09:27→20:50)
[2018-04-23] MEDS: METOPROLOL TARTRATE 12.5 MG TAB PO SCH ×2 (09:27→20:39)
[2018-04-23] MEDS: amLODIPine 5 MG TAB PO SCH (09:29)
[2018-04-23] MEDS: FERROUS SULFATE 325 MG TAB PO SCH ×2 (09:29→20:49)
[2018-04-23] MEDS: ZINC SULFATE 220 MG CAP PO SCH (09:29)
[2018-04-23] MEDS: LORATADINE 10 MG TAB PO SCH (09:30)
[2018-04-23] MEDS: PANTOPRAZOLE 40 MG TABLET PO SCH (09:30)
[2018-04-23] MEDS: ASCORBIC ACID 500 MG TAB PO SCH ×2 (09:30→20:49)
[2018-04-23] MEDS: ASPIRIN 81 MG PO SCH (09:30)
[2018-04-23] MEDS: CARBIDOPA-LEVODOPA 10-100 MG 1 EACH TAB PO SCH ×3 (09:30→20:49)
[2018-04-23] MEDS: LACOSAMIDE 50 MG TABLET PO SCH ×2 (09:30→20:48)
[2018-04-23] MEDS: APIXABAN 5 MG TAB PO SCH ×2 (09:31→20:49)
[2018-04-23] MEDS: COLLAGENASE 250 UNIT/GM OINTMENT 30 GM TUBE TOPICAL SCH (09:35)
[2018-04-23] MEDS: SODIUM CHLORIDE 0.9% 1,000 ML IV SCH (09:38)
[2018-04-23] MEDS: HYDROcodone/APAP 7.5-325MG 1 EACH TAB PO PRN ×2 (12:06→20:48)
--- NOTE | 2018-04-23 12:17 | P.GSCN ---
History of Present Illness Consult date: 04/23/18 Reason for Consult: Neurogenic bladder, UTI Requesting physician: Mart E Sheet History of present illness: The patient is a 62 years old male with past medical history of dementia, diabetes mellitus, GERD, Parkinson's disease, hyperlipidemia, hypertension, seizure disorder, DVT, osteomyelitis of the coccyx. He underwent a lumbar laminectomy in February 2017 and has been paraplegic since that time, resulting in a neurogenic bladder. This was initially managed with an indwelling Hagan catheter, largely to improve the management of a sacral ulcer. He developed hypospadias, and for this reason underwent insertion of a suprapubic cystostomy tube. He also has a colostomy. His suprapubic tube was last changed on 2018. He is currently admitted for treatment of hypotension. There is no suprapubic tenderness or drainage around the suprapubic cystostomy tube. Review of Systems - Constitutional Denies fever - Gastrointestinal Denies nausea, Denies vomiting - Genitourinary Denies hematuria Past Medical History Past Medical History: Dementia, Diabetes Mellitus, Deep Vein Thrombosis (DVT), GERD/Reflux, Hyperlipidemia, Hypertension, Prostate Disorder, Seizure Disorder Additional Past Medical History / Comment(s): Spouse states pt has pulled out IVs and other equipment and has thrown himself out of bed in the past- recommends side rails be up at all times, DVT B/L LE, insomnia, osteomeylitis- coccyx wound has had hyerbaric tx and wound vac in the past- goes to [facility] every , colostomy d/t coccyx wound, uti's, guillain barre syndrome, neurogenic bladder has suprapubic cath-last changed 04-11-18, paraplegia SINCE LAMINECTOMY FEB 15, 2017-PARALIZED WAIST DOWN, abd hernia, per pt has peg tube but is now able to eat, limited ROM with neck, NIDDM now diet controlled/possible bilateral foot neuropathy. stated "that the dementia pt has also has parkinson like symptoms". History of Any Multi-Drug Resistant Organisms: MRSA, VRE Year Discovered:: 01/12/18 MRSA; 07/28/17 VRE MDRO Source:: Hip-MRSA & VRE Past Surgical History: Back Surgery, Bowel Resection, Coronary Bypass/CABG, Heart Catheterization Additional Past Surgical History / Comment(s): LAMINECTOMY 02/15/17-has had total of 4 sx, 2016 CABG-5 vessel, piccs-none now, COLONOSCOPY, COLOSTOMY(was done d/t non healing coccyx wound. Supra PUBIC CATH (changed last 03-14-18), picc lines-since removed, peg tube. PICC Line Past Anesthesia/Blood Transfusion Reactions: Previous Problems w/ Anesthesia Additional Past Anesthesia/Blood Transfusion Reaction / Comm: when pt had 2 sx within a short time from each other ,he had diffiuclty waking up. Past blood transfusion-no reaction Smoking Status: Former smoker - Past Family History Brother(s) Family Medical History: Cancer Mother Additional Family Medical History / Comment(s): emphysema Father Additional Family Medical History / Comment(s): emphysema Medications and Allergies Home Medications Medication Instructions Recorded Confirmed Type Apixaban [Eliquis] 5 mg PO BID 07/27/17 04/20/18 History HYDROcodone/APAP 7.5-325MG [[place] 1 tab PO Q6HR PRN 07/27/17 04/20/18 History 7.5-325] Pantoprazole Sodium 40 mg PO DAILY 10/03/17 04/20/18 History levETIRAcetam [Keppra] 750 mg PO BID #60 tab 02/17/18 04/20/18 Rx Lacosamide [Vimpat] 100 mg PO BID 03/07/18 04/20/18 History QUEtiapine [SEROquel] 50 mg PO HS #30 tab 03/10/18 04/20/18 Rx Acetaminophen [Tylenol Extra 1,000 mg PO Q6HR PRN 03/16/18 04/20/18 History Strength] Aspirin EC [Ecotrin Low Dose] 81 mg PO DAILY 03/16/18 04/20/18 History Cetirizine HCl [Zyrtec] 10 mg PO DAILY 03/16/18 04/20/18 History Ferrous Sulfate [Feosol] 325 mg PO BID 03/16/18 04/20/18 History Lisinopril [Prinivil] 5 mg PO DAILY 03/16/18 04/20/18 History Metoprolol Tartrate [Lopressor] 12.5 mg PO BID 03/16/18 04/20/18 History amLODIPine [Norvasc] 5 mg PO DAILY 03/16/18 04/20/18 History Ascorbic Acid [Vitamin C] 500 mg PO BID 04/06/18 04/20/18 History Carbidopa-Levodopa 10-100 mg 1 each PO TID 04/06/18 04/20/18 History [Sinemet 10-100] Divalproex Sodium [Depakote] 500 mg PO BID 04/06/18 04/20/18 History Donepezil [Aricept] 5 mg PO HS 04/06/18 04/20/18 History Melatonin 3 mg PO HS 04/06/18 04/20/18 History Zinc Sulfate [Orazinc] 220 mg PO DAILY 04/06/18 04/20/18 History Allergies Allergy/AdvReac Type Severity Reaction Status Date / Time No Known Allergies Allergy Verified 04/20/18 12:08 Surgical - Exam Vital Signs Temp Pulse Resp BP Pulse Ox 98.5 F 55 L 18 97/55 98 04/20/18 11:47 04/20/18 11:47 04/20/18 11:47 04/20/18 11:47 04/20/18 11:47 - General well developed, well nourished, no distress - Respiratory normal respiratory effort - Abdomen The suprapubic tube is draining well. The site is clean. Abdomen: soft, non tender, no guarding, no rigid, no rebound - Genitourinary testicles non-tender, other (The penis shows evidence of hypospadias down to the midshaft.) - Psychiatric oriented to time, oriented to person, oriented to place, speech is normal, memory intact Results - Labs 04/23/18 07:27 04/23/18 07:27 Abnormal Lab Results - Last 24 Hours (Table) 04/23/18 04/23/18 Range/Units 07:27 07:27 WBC 3.0 L (3.8-10.6) k/uL RBC 2.21 L (4.30-5.90) m/uL Hgb 6.4 L* (13.0-17.5) gm/dL Hct 19.1 L* (39.0-53.0) % RDW 19.0 H (11.5-15.5) % Plt Count 118 L (150-450) k/uL Lymphocytes # 0.8 L (1.0-4.8) k/uL Chloride 116 H (98-107) mmol/L Creatinine 0.54 L (0.66-1.25) mg/dL Calcium 7.8 L (8.4-10.2) mg/dL Microbiology - Last 24 Hours (Table) 04/20/18 12:10 Blood Culture - Preliminary Blood No Growth after 48 hours Diabetes panel 04/23/18 Range/Units 07:27 Sodium 144 (137-145) mmol/L Potassium 3.5 (3.5-5.1) mmol/L Chloride 116 H (98-107) mmol/L Carbon Dioxide 25 (22-30) mmol/L BUN 11 (9-20) mg/dL Creatinine 0.54 L (0.66-1.25) mg/dL Glucose 83 (74-99) mg/dL Calcium 7.8 L (8.4-10.2) mg/dL Calcium panel 04/23/18 Range/Units 07:27 Calcium 7.8 L (8.4-10.2) mg/dL Pituitary panel 04/23/18 Range/Units 07:27 Sodium 144 (137-145) mmol/L Potassium 3.5 (3.5-5.1) mmol/L Chloride 116 H (98-107) mmol/L Carbon Dioxide 25 (22-30) mmol/L BUN 11 (9-20) mg/dL Creatinine 0.54 L (0.66-1.25) mg/dL Glucose 83 (74-99) mg/dL Calcium 7.8 L (8.4-10.2) mg/dL Adrenal panel 04/23/18 Range/Units 07:27 Sodium 144 (137-145) mmol/L Potassium 3.5 (3.5-5.1) mmol/L Chloride 116 H (98-107) mmol/L Carbon Dioxide 25 (22-30) mmol/L BUN 11 (9-20) mg/dL Creatinine 0.54 L (0.66-1.25) mg/dL Glucose 83 (74-99) mg/dL Calcium 7.8 L (8.4-10.2) mg/dL Assessment and Plan (1) Neurogenic bladder Current Visit: No Status: Chronic Code(s): N31.9 - NEUROMUSCULAR DYSFUNCTION OF BLADDER, UNSPECIFIED SNOMED Code(s): 070830306 (2) UTI (urinary tract infection) Current Visit: Yes Status: Acute Code(s): N39.0 - URINARY TRACT INFECTION, SITE NOT SPECIFIED SNOMED Code(s): 02955728 Plan: I had a lengthy discussion with the patient and his . I explained that he likely has a neurogenic bladder resulting from his spinal cord injury, and that an indwelling (urethral) Hagan catheter is no longer a viable option. He is unable to perform intermittent self-catheterization, and in view of this a suprapubic cystostomy tube is likely the best way to manage his neurogenic bladder. However, this results in chronic bacteriuria which at times can cause a clinical infection. His states that the urine sometimes contains sediment, and I explained to her that this could represent infection but could also simply represent urinary crystals. They have never had the suprapubic tube become plugged, but if this becomes a problem in the future he may benefit from Renacidin irrigation. I changed the 18-[place] suprapubic cystostomy tube under sterile conditions. The urine culture has shown greater than 100,000 Debby species, and I will defer to Infectious Disease how best to manage this. Please notify me if I can be of any further assistance.
--- NOTE | 2018-04-23 15:02 | P.CONS ---
History of Present Illness - Reason for Consult Consult date: 04/22/18 Catheter associated urinary tract infection Requesting physician: Mart E Sheet - Chief Complaint Weakness and hypotension - History of Present Illness Patient is a 62 year male with a past medical history significant for paraplegia after the patient did have a lumbar laminectomy in the summer of 2016 leading to a neurogenic bladder initially managed with indwelling Hagan catheter however subsequently did have suprapubic catheter the patient did have a sacral pressure ulcer for the patient follow at [facility] wound care hurt patient was evaluated the wound care center on 04/20/2018 with the patient is complaining of feeling weak and tired and no energy and he was noticed to be hypotensive with concern for possible sepsis the patient was sent to the ER for further evaluation of the same, on presentation to the ER the patient was afebrile his white count was normal the patient did have a chest x-ray that was reported to be negative for any acute infiltrate patient a UA was positive with diagnoses of urinary tract infection and possible sepsis the patient was admitted hospital the patient was started on IV Rocephin and urine cultures this morning is showing the yeast and that prompted this infection disease consultation, the sacral dressing was changed just before my visit to see the patient by the RN and mentioned no significant swelling or redness or any foul- smelling drainage around the wound Review of Systems Positive part has been mentioned in HPI rest of the system has been negative Past Medical History Past Medical History: Dementia, Diabetes Mellitus, Deep Vein Thrombosis (DVT), GERD/Reflux, Hyperlipidemia, Hypertension, Prostate Disorder, Seizure Disorder Additional Past Medical History / Comment(s): Spouse states pt has pulled out IVs and other equipment and has thrown himself out of bed in the past- recommends side rails be up at all times, DVT B/L LE, insomnia, osteomeylitis- coccyx wound has had hyerbaric tx and wound vac in the past- goes to [facility] every , colostomy d/t coccyx wound, uti's, guillain barre syndrome, neurogenic bladder has suprapubic cath-last changed 04-11-18, paraplegia SINCE LAMINECTOMY FEB 15, 2017-PARALIZED WAIST DOWN, abd hernia, per pt has peg tube but is now able to eat, limited ROM with neck, NIDDM now diet controlled/possible bilateral foot neuropathy. stated "that the dementia pt has also has parkinson like symptoms". History of Any Multi-Drug Resistant Organisms: MRSA, VRE Year Discovered:: 01/12/18 MRSA; 07/28/17 VRE MDRO Source:: Hip-MRSA & VRE Past Surgical History: Back Surgery, Bowel Resection, Coronary Bypass/CABG, Heart Catheterization Additional Past Surgical History / Comment(s): LAMINECTOMY 02/15/17-has had total of 4 sx, 2015 CABG-5 vessel, piccs-none now, COLONOSCOPY, COLOSTOMY(was done d/t non healing coccyx wound. Supra PUBIC CATH (changed last 03-14-18), picc lines-since removed, peg tube. PICC Line Past Anesthesia/Blood Transfusion Reactions: Previous Problems w/ Anesthesia Additional Past Anesthesia/Blood Transfusion Reaction / Comm: when pt had 2 sx within a short time from each other ,he had diffiuclty waking up. Past blood transfusion-no reaction Smoking Status: Former smoker - Past Family History Brother(s) Family Medical History: Cancer Mother Additional Family Medical History / Comment(s): emphysema Father Additional Family Medical History / Comment(s): emphysema Medications and Allergies Home Medications Medication Instructions Recorded Confirmed Type Apixaban [Eliquis] 5 mg PO BID 07/27/17 04/20/18 History HYDROcodone/APAP 7.5-325MG [[place] 1 tab PO Q6HR PRN 07/27/17 04/20/18 History 7.5-325] Pantoprazole Sodium 40 mg PO DAILY 10/03/17 04/20/18 History levETIRAcetam [Keppra] 750 mg PO BID #60 tab 02/17/18 04/20/18 Rx Lacosamide [Vimpat] 100 mg PO BID 03/07/18 04/20/18 History QUEtiapine [SEROquel] 50 mg PO HS #30 tab 03/10/18 04/20/18 Rx Acetaminophen [Tylenol Extra 1,000 mg PO Q6HR PRN 03/16/18 04/20/18 History Strength] Aspirin EC [Ecotrin Low Dose] 81 mg PO DAILY 03/16/18 04/20/18 History Cetirizine HCl [Zyrtec] 10 mg PO DAILY 03/16/18 04/20/18 History Ferrous Sulfate [Feosol] 325 mg PO BID 03/16/18 04/20/18 History Lisinopril [Prinivil] 5 mg PO DAILY 03/16/18 04/20/18 History Metoprolol Tartrate [Lopressor] 12.5 mg PO BID 03/16/18 04/20/18 History amLODIPine [Norvasc] 5 mg PO DAILY 03/16/18 04/20/18 History Ascorbic Acid [Vitamin C] 500 mg PO BID 04/06/18 04/20/18 History Carbidopa-Levodopa 10-100 mg 1 each PO TID 04/06/18 04/20/18 History [Sinemet 10-100] Divalproex Sodium [Depakote] 500 mg PO BID 04/06/18 04/20/18 History Donepezil [Aricept] 5 mg PO HS 04/06/18 04/20/18 History Melatonin 3 mg PO HS 04/06/18 04/20/18 History Zinc Sulfate [Orazinc] 220 mg PO DAILY 04/06/18 04/20/18 History Allergies Allergy/AdvReac Type Severity Reaction Status Date / Time No Known Allergies Allergy Verified 04/20/18 12:08 Physical Exam Vitals: Vital Signs Temp Pulse Resp BP Pulse Ox 04/22/18 19:48 18 04/22/18 19:07 97.6 F 54 L 18 122/62 100 04/22/18 14:42 97.9 F 53 L 20 110/54 100 04/22/18 07:08 16 04/22/18 07:00 97.9 F 50 L 20 106/66 98 04/22/18 03:18 16 04/22/18 01:41 97.9 F 53 L 16 102/60 100 04/22/18 00:00 16 04/21/18 22:37 98.2 F 50 L 16 102/60 99 Intake and Output 04/22/18 04/22/18 04/22/18 06:59 14:59 22:59 Intake Total 590 500 236 Output Total 400 500 Balance 190 0 236 Intake: Intake, IV Titration 500 Amount Sodium Chloride 0.9% 500 500 ml 500 ml @ 999 mls/hr IV .Q31M ONE Rx#:[id number] Oral 590 236 Output: Urine 400 500 Suprapubic 400 Other: Voiding Method Indwelling Catheter Indwelling Catheter Indwelling Catheter General: The patient is awake and alert, in no distress. Skin: no rashes and no masses palpable. Eye: Pupils are equal, round, there is normal conjunctiva bilaterally. Ears, nose, mouth and throat: There are moist mucous membranes and no oral lesions. Neck: The neck is supple, there is no thyromegaly. Cardiovascular: S1-S2 regular rate and rhythm. No murmur. Respiratory: Unlabored breathing clear to auscultation bilaterally Gastrointestinal: Soft, non-distended, non-tender abdomen without masses or organomegaly noted. Psychiatric: Patient is awake and alert and oriented 3, appropriate mood & affect, normal judgment. Results CBC & Chem 7: 04/23/18 07:27 04/23/18 07:27 Labs: Abnormal Lab Results - Last 24 Hours (Table) 04/22/18 04/22/18 04/22/18 Range/Units 05:50 08:36 08:36 WBC 3.2 L (3.8-10.6) k/uL RBC 2.48 L (4.30-5.90) m/uL Hgb 7.0 L (13.0-17.5) gm/dL Hct 22.8 L (39.0-53.0) % RDW 18.6 H (11.5-15.5) % Plt Count 112 L (150-450) k/uL Lymphocytes # 0.7 L (1.0-4.8) k/uL Chloride 113 H (98-107) mmol/L Creatinine 0.56 L (0.66-1.25) mg/dL POC Glucose (mg/dL) 102 H (75-99) mg/dL Calcium 8.1 L (8.4-10.2) mg/dL Microbiology - Last 24 Hours (Table) 04/20/18 12:10 Blood Culture - Preliminary Blood No Growth after 48 hours 04/20/18 12:40 Urine Culture - Final Urine,Suprapubic Debby albicans Assessment and Plan (1) UTI (urinary tract infection) Current Visit: Yes Status: Acute Code(s): N39.0 - URINARY TRACT INFECTION, SITE NOT SPECIFIED SNOMED Code(s): 36430927 Plan: 1-patient admitted hospital with generalized weakness and hypotension source is likely multifactorial in this patient did have a component of dehydration and likely a component of catheter associated infection in this patient who do have a chronic suprapubic catheter for his neurogenic bladder with urination currently showing yeast 2- recommend change of the suprapubic catheter and obtain a urine culture from the new Hagan 3- as the patient is on medication with drug interaction to Diflucan it cannot be used 4- we will start the patient on Eraxis 200 mg 1 and then 100 mg daily 5- continue local wound care to the sacral wound and it is evaluated tomorrow we will follow-up on clinical condition to further adjust medication if needed , thank you for this consultation will follow this patient along with you Time with Patient: Greater than 30
--- NOTE | 2018-04-23 16:10 | P.PN ---
Subjective This is a pleasant 62 years old male with past medical history of dementia, diabetes mellitus, GERD, hyperlipidemia, hypertension, seizure disorder, DVT on Eliquis, osteomyelitis of the coccygeal on that follow-up with the wound clinic every , status post colostomy, neurogenic bladder status post suprapubic catheter, paraplegia since laminectomy in February 2017 and paralyzed from waist down, previous infection with MRSA and VRE. And Parkinson disease Patient was sent from the wound care center for hypotension. Patient denies dysuria, he has suprapubic copy last changed on 04/11/2018. No suprapubic tenderness, no purulent discharge. No surrounding cellulitis. He complains also from right knee pain with no history of trauma. Since admission and his been afebrile, blood pressure on admission was 97/55, and currently 114/73 with heart rate of 52, after he received 1 L of normal saline bolus. WBC is 4.5K, hemoglobin 8.3. Creatinine 0.5. Liver enzymes and dressed of BMP were unremarkable. Urinalysis is suspicious for infection. If there was a checked and was negative. Urine culture was sent and the result is pending. He has chest x-ray which showed no acute cardiopulmonary process as per Radiologist. Patient was started on ceftriaxone. 04/22/2018 Patient is a fully awake and oriented, not in distress or pain. He still has suprapubic catheter in a Place. However blood pressure yesterday was on the low side as well as this morning, his Coreg was decreased down to 3.125 mg twice a day, we held Norvasc and lisinopril and give him another bolus of normal saline, his blood pressure improved from 90s/50s up to 122/62 currently. Continue with IV fluids but decrease the rate from 150 down to 75 mL/h . Will consult infectious disease for management of his UTI, and urology for his suprapubic catheter management. Right knee x-ray is negative and no more pain in his right knee area 04/23/2018 Patient is awake, not in distress or confused. No pain. Infectious disease evaluated the patient and start him on Eraxis, for Debby in the urine. Urology team evaluated the patient and they changed his suprapubic catheter. Labs from yesterday was showing pancytopenia, and today her his hemoglobin was dropping down from 7 down to 6.4, anemia workup was initiated, and will call hematology oncology consult for further evaluation. Vitals remained stable. And infectious disease R following the case. Since patient has severe anemia of 6.4, to recommended to have blood transfusion. Risks and benefits are explained to the patient for blood transfusion and he verbalized understanding and acceptance. Discussed with the staff Review of systems CONSTITUTIONAL: No fever, no malaise, no fatigue. HEENT: No recent visual problems or hearing problems. Denied any sore throat. CARDIOVASCULAR: No orthopnea, PND, no palpitations, no syncope. PULMONARY: No shortness of breath, no cough, no hemoptysis. GASTROINTESTINAL: No diarrhea, no nausea, no vomiting, no abdominal pain. Normoactive bowel sounds. NEUROLOGICAL: No headaches, no weakness, no numbness. HEMATOLOGICAL: Denies any bleeding or petechiae. MUSCULOSKELETAL/RHEUMATOLOGICAL: Denies any joint pain, swelling, or any muscle pain. ENDOCRINE: Denies any polyuria or polydipsia. Medication: Tylenol, Norvasc (held) , lisinopril (stopped), Eliquis, vitamin C, Sinemet, ceftriaxone, Depakote, Aricept, ferrous sulfate, Robitussin, [place], Vimpat, Coreg, loratadine, Keppra,, protonix, seroquel, normal saline, zinc sulfate. Objective - Vital Signs Vital signs: Vital Signs Temp 98.6 F 04/23/18 14:25 Pulse 96 04/23/18 14:25 Resp 16 04/23/18 14:25 BP 154/79 04/23/18 14:25 Pulse Ox 93 L 04/23/18 14:25 Intake & Output 04/22/18 04/23/18 04/23/18 18:59 06:59 18:59 Intake Total 736 925 Output Total 500 400 Balance 236 525 Intake: Intake, IV Titration 500 525 Amount Sodium Chloride 0.9% 1, 525 000 ml @ 75 mls/hr IV . [id number] [facility] Rx#:[id number] Sodium Chloride 0.9% 500 500 ml 500 ml @ 999 mls/hr IV .Q31M ONE Rx#:[id number] Oral 236 400 Output: Urine 500 400 Other: Voiding Method Indwelling Catheter Indwelling Catheter Indwelling Catheter - Exam GENERAL: The patient is alert and oriented x3, not in any acute distress. Well developed, well nourished. HEENT: Pupils are round and equally reacting to light. EOMI. No scleral icterus. No conjunctival pallor. Normocephalic, atraumatic. No pharyngeal erythema. No thyromegaly. CARDIOVASCULAR: S1 and S2 present. No murmurs, rubs, or gallops. PULMONARY: Chest is clear to auscultation, no wheezing or crackles. -ABDOMEN: Soft, nontender, nondistended, normoactive bowel sounds. No palpable organomegaly. Suprapubic catheter in place MUSCULOSKELETAL: No joint swelling or deformity. EXTREMITIES: No cyanosis, clubbing, or pedal edema. -NEUROLOGICAL: Gross neurological examination did not reveal any focal deficits. Paraplegia SKIN: No rashes. - Labs CBC & Chem 7: 04/23/18 07:27 04/23/18 07:27 Labs: Abnormal Lab Results - Last 24 Hours (Table) 04/23/18 04/23/18 Range/Units 07:27 07:27 WBC 3.0 L (3.8-10.6) k/uL RBC 2.21 L (4.30-5.90) m/uL Hgb 6.4 L* (13.0-17.5) gm/dL Hct 19.1 L* (39.0-53.0) % RDW 19.0 H (11.5-15.5) % Plt Count 118 L (150-450) k/uL Lymphocytes # 0.8 L (1.0-4.8) k/uL Chloride 116 H (98-107) mmol/L Creatinine 0.54 L (0.66-1.25) mg/dL Calcium 7.8 L (8.4-10.2) mg/dL Microbiology - Last 24 Hours (Table) 04/20/18 12:10 Blood Culture - Preliminary Blood No Growth after 72 hours Assessment and Plan Assessment: Hypotension and dehydration on admission, improved Pancytopenia Severe anemia needed blood transfusion Urosepsis, urine culture has been sent Right knee pain, improved Decubitus ulcer with history of coccygeal osteomyelitis, status post wound VAC, follow-up with the wound care center History of dementia Diabetes mellitus Hypertension Hyperlipidemia History of GERD History of seizure disorder on Keppra History of DVT on Eliquis Plan: This is a pleasant 62 years old male who presents because of urosepsis. Continue antibiotics and IV fluids. Follow-up urine culture. Consult infectious disease and urology services. Labs and medication were reviewed.. Continue same treatment. Continue with symptomatic treatment. Resume home medication. Monitor lytes and vitals. DVT and GI prophylaxis. Further recommendations of the clinical course of the patient DVT prophylaxis: Eliquis GI Prophylaxis: Protonix Prognosis is guarded
[2018-04-23 16:15] LABS: Reticulocyte % 0.9 % (0.5-2.0)
[2018-04-23 16:31] LABS: Appearance,Urine Turbid (Clear); Bacteria,Urine Rare /hpf; Bilirubin,Urine Negative (Negative); Blood,Urine Small (Negative); Color,Urine Yellow; Glucose,Urine (UA) Negative (Negative); Ketones,Urine Negative (Negative); Leukocyte Esterase,Urine Large (Negative); Mucus,Urine Rare /hpf; Nitrite,Urine Negative (Negative); PH, Urine 5.5 (5.0-8.0); Protein,Urine 1+ (Negative); Specific Gravity,Urine 1.015 (1.001-1.035); Urobilinogen,Urine <2.0 mg/dL (<2.0); WBC,Urine >182 /hpf (0-5)
[2018-04-23] MEDS: DONEPEZIL 5 MG TAB PO SCH (20:49)
[2018-04-23] MEDS: MELATONIN 3 MG TABLET PO SCH (20:49)
[2018-04-23] MEDS: QUEtiapine 50 MG TAB PO SCH (20:49)
[2018-04-23 20:50] LABS: Reticulocyte % 1.3 % (0.5-2.0)
[2018-04-23 22:10] LABS: INR 1.1 (<1.2); Partial Thromboplastin Time 31.2 sec (22.0-30.0); Prothrombin Time 11.3 sec (9.0-12.0)
[2018-04-23] MEDS: ANIDULAFUNGIN 100 MG in SODIUM CHLORIDE 0.9% 100 ML IVPB SCH (22:51)
--- NOTE | 2018-04-23 23:47 | P.CONS ---
History of Present Illness - Reason for Consult Consult date: 04/23/18 Pancytopenia Requesting physician: Mart E Sheet - Chief Complaint Hypotension - History of Present Illness Mr. Adam is a pleasant male patient with known history of diabetes, HLD, HTN, Seizure disorder, Dementia, DVT on Eliquis, neurogenic bladder with a suprapubic catheter, paraplegia since laminectomy in 02/2017, parkinsons disease , hx: MRSA and VRE, and ongoing osteomyelitis of the coccygeal in which he follows with wound clinic. He was sent to emergency from wound clinic for hypotensions. On Admission chest xray negative. His WBC and Lymphocytes are mildly decreased, Hemoglobin tends to be chronically low, although he did have a further drop from his normal baseline today hemoglobin 6.4, he received one unit of PRBC, his platlet count was 244 on 03/16/18, today 118, has slowly decreased since admission. Because of these cytopenias hematology has been asked to further evaluate. Note he is currently being treated for positive debby in suprapubic catheter, and on 03/30/18 he had positive coccyx wound culture revealing Ecoli and Pseudomonas. He was on antibiotics as outpatient. Review of Systems A 14 point was assessed and completed and all neg except HPI Past Medical History Past Medical History: Dementia, Diabetes Mellitus, Deep Vein Thrombosis (DVT), GERD/Reflux, Hyperlipidemia, Hypertension, Prostate Disorder, Seizure Disorder Additional Past Medical History / Comment(s): Spouse states pt has pulled out IVs and other equipment and has thrown himself out of bed in the past- recommends side rails be up at all times, DVT B/L LE, insomnia, osteomeylitis- coccyx wound has had hyerbaric tx and wound vac in the past- goes to [facility] every , colostomy d/t coccyx wound, uti's, guillain barre syndrome, neurogenic bladder has suprapubic cath-last changed 04-11-18, paraplegia SINCE LAMINECTOMY FEB 15, 2017-PARALIZED WAIST DOWN, abd hernia, per pt has peg tube but is now able to eat, limited ROM with neck, NIDDM now diet controlled/possible bilateral foot neuropathy. stated "that the dementia pt has also has parkinson like symptoms". History of Any Multi-Drug Resistant Organisms: MRSA, VRE Year Discovered:: 01/12/18 MRSA; 07/28/17 VRE MDRO Source:: Hip-MRSA & VRE Past Surgical History: Back Surgery, Bowel Resection, Coronary Bypass/CABG, Heart Catheterization Additional Past Surgical History / Comment(s): LAMINECTOMY 02/15/17-has had total of 4 sx, 2015 CABG-5 vessel, piccs-none now, COLONOSCOPY, COLOSTOMY(was done d/t non healing coccyx wound. Supra PUBIC CATH (changed last 03-14-18), picc lines-since removed, peg tube. PICC Line Past Anesthesia/Blood Transfusion Reactions: Previous Problems w/ Anesthesia Additional Past Anesthesia/Blood Transfusion Reaction / Comm: when pt had 2 sx within a short time from each other ,he had diffiuclty waking up. Past blood transfusion-no reaction Smoking Status: Former smoker - Past Family History Brother(s) Family Medical History: Cancer Mother Additional Family Medical History / Comment(s): emphysema Father Additional Family Medical History / Comment(s): emphysema Medications and Allergies Home Medications Medication Instructions Recorded Confirmed Type Apixaban [Eliquis] 5 mg PO BID 07/27/17 04/20/18 History HYDROcodone/APAP 7.5-325MG [[place] 1 tab PO Q6HR PRN 07/27/17 04/20/18 History 7.5-325] Pantoprazole Sodium 40 mg PO DAILY 10/03/17 04/20/18 History levETIRAcetam [Keppra] 750 mg PO BID #60 tab 02/17/18 04/20/18 Rx Lacosamide [Vimpat] 100 mg PO BID 03/07/18 04/20/18 History QUEtiapine [SEROquel] 50 mg PO HS #30 tab 03/10/18 04/20/18 Rx Acetaminophen [Tylenol Extra 1,000 mg PO Q6HR PRN 03/16/18 04/20/18 History Strength] Aspirin EC [Ecotrin Low Dose] 81 mg PO DAILY 03/16/18 04/20/18 History Cetirizine HCl [Zyrtec] 10 mg PO DAILY 03/16/18 04/20/18 History Ferrous Sulfate [Feosol] 325 mg PO BID 03/16/18 04/20/18 History Lisinopril [Prinivil] 5 mg PO DAILY 03/16/18 04/20/18 History Metoprolol Tartrate [Lopressor] 12.5 mg PO BID 03/16/18 04/20/18 History amLODIPine [Norvasc] 5 mg PO DAILY 03/16/18 04/20/18 History Ascorbic Acid [Vitamin C] 500 mg PO BID 04/06/18 04/20/18 History Carbidopa-Levodopa 10-100 mg 1 each PO TID 04/06/18 04/20/18 History [Sinemet 10-100] Divalproex Sodium [Depakote] 500 mg PO BID 04/06/18 04/20/18 History Donepezil [Aricept] 5 mg PO HS 04/06/18 04/20/18 History Melatonin 3 mg PO HS 04/06/18 04/20/18 History Zinc Sulfate [Orazinc] 220 mg PO DAILY 04/06/18 04/20/18 History Allergies Allergy/AdvReac Type Severity Reaction Status Date / Time No Known Allergies Allergy Verified 04/20/18 12:08 Physical Exam Vitals: Vital Signs Temp Pulse Pulse Resp BP BP BP 04/23/18 18:20 51 L 12 122/64 04/23/18 17:50 60 13 138/75 04/23/18 17:45 98.4 F 57 L 12 135/63 04/23/18 17:27 97.5 F L 57 L 12 135/73 04/23/18 14:25 98.6 F 96 16 154/79 04/23/18 06:59 97.2 F L 51 L 12 115/64 04/23/18 03:19 15 04/23/18 01:00 97.9 F 59 L 15 108/52 04/22/18 23:16 18 04/22/18 19:48 18 04/22/18 19:07 97.6 F 54 L 18 122/62 Pulse Ox 04/23/18 18:20 04/23/18 17:50 04/23/18 17:45 04/23/18 17:27 04/23/18 14:25 93 L 04/23/18 06:59 100 04/23/18 03:19 04/23/18 01:00 100 04/22/18 23:16 04/22/18 19:48 04/22/18 19:07 100 Intake and Output 04/23/18 04/23/18 04/23/18 06:59 14:59 22:59 Intake Total 925 0 Output Total 400 Balance 525 0 Intake: Intake, IV Titration 525 Amount Sodium Chloride 0.9% 1, 525 000 ml @ 75 mls/hr IV . [id number] [facility] Rx#:[id number] Oral 400 Blood Product 0 Rc As-1 Unit 0 [id number] Output: Urine 400 Other: Voiding Method Indwelling Catheter Indwelling Catheter Indwelling Catheter Gen: No acute distress, Alert Neck: Supple, Trachea Midline Head: NC NT Heart: RRR, S2S2 Lungs: CTA Bilateral, no increased effort Abdomen: Suprapubic catheter in place, ND, NT Ex: Paraplegia no rashes oor edema Neuro: Paraplegia otherwise non focal. Results CBC & Chem 7: 04/23/18 07:27 04/23/18 07:27 Labs: Abnormal Lab Results - Last 24 Hours (Table) 04/23/18 04/23/18 04/23/18 Range/Units 07:27 07:27 15:16 WBC 3.0 L (3.8-10.6) k/uL RBC 2.21 L (4.30-5.90) m/uL Hgb 6.4 L* (13.0-17.5) gm/dL Hct 19.1 L* (39.0-53.0) % RDW 19.0 H (11.5-15.5) % Plt Count 118 L (150-450) k/uL Lymphocytes # 0.8 L (1.0-4.8) k/uL Chloride 116 H (98-107) mmol/L Creatinine 0.54 L (0.66-1.25) mg/dL Calcium 7.8 L (8.4-10.2) mg/dL Urine Protein (Negative) Urine Blood (Negative) Ur Leukocyte Esterase (Negative) Urine WBC (0-5) /hpf Urine WBC Clumps (None) /hpf Urine Bacteria (None) /hpf Urine Mucus (None) /hpf Crossmatch See Detail 04/23/18 Range/Units 16:11 WBC (3.8-10.6) k/uL RBC (4.30-5.90) m/uL Hgb (13.0-17.5) gm/dL Hct (39.0-53.0) % RDW (11.5-15.5) % Plt Count (150-450) k/uL Lymphocytes # (1.0-4.8) k/uL Chloride (98-107) mmol/L Creatinine (0.66-1.25) mg/dL Calcium (8.4-10.2) mg/dL Urine Protein 1+ H (Negative) Urine Blood Small H (Negative) Ur Leukocyte Esterase Large H (Negative) Urine WBC >182 H (0-5) /hpf Urine WBC Clumps Many H (None) /hpf Urine Bacteria Rare H (None) /hpf Urine Mucus Rare H (None) /hpf Crossmatch Microbiology - Last 24 Hours (Table) 04/20/18 12:10 Blood Culture - Preliminary Blood No Growth after 72 hours Chest x-ray: report reviewed Assessment and Plan Plan: Assessment and Recommendations: 1. Pancytopenia: likely result of bone marrow suppression from [facility]p infections, antibiotics, and inflammation Leukopenia: Mild and likely reactive to chronic inflammation, infections, antibiotics - Monitor CBC Daily - Lymphocytopenia Normocytic Anemia: - Chronic anemia with a baseline between 9-10 - Today 6.4 and agree with PRBC Transfusion - The cause of the rapid decrease is not entirely known - Work-up has been ordered and Dr. Mchugh will review when results are back - Continue supportive transfusions when hemoglobin less than 7 Thrombocytopenia: This is mild and remains in a safe range although his baseline platlet count is over 200K - Platlets today 113 - This is likely secondary to prolonged infection and antibiotis plus or minus component of ITP, HIT antibody less likely as he has not had heparin exposure as he is on Eliquis for his hx: DVT 2. Debby Infection Suprapuic cath 3. Ecoli and [place] at coccyx wound 4. Hx: of DVT on eliquis, rec continuing 5. Paraplegia Multiple other co-morbidies managed by primary team Physician Attest: I have reviewed above history and physical with dictator, developed the complete impression and plan and agree with above dictation dictated as a scribe.
[2018-04-24] MEDS: SODIUM CHLORIDE 0.9% 1,000 ML IV SCH ×2 (01:58→22:46)
--- NOTE | 2018-04-24 05:56 | PN ---
PROGRESS NOTE DATE OF SERVICE: 04/23/2018. REASON FOR FOLLOWUP: Catheter-associated urinary tract infection. INTERVAL HISTORY: The patient is afebrile. The patient's suprapubic catheter has been changed. The patient denies having any chest pain or shortness of breath or cough. Repeat urine cultures were ordered, not completed. PHYSICAL EXAMINATION: On examination, blood pressure 145/77 with a pulse of 51, temperature 98.1. He is 98% on room air. General description is a middle-aged male lying in bed in no distress. RESPIRATORY SYSTEM: Unlabored breathing, clear to auscultation anteriorly. HEART: S1, S2. Regular rate and rhythm. ABDOMEN: Soft, no tenderness. LABS: Hemoglobin 6.4, white count 3.0. BUN of 11, creatinine 0.54. DIAGNOSTIC IMPRESSION AND PLAN: 1. Patient with Debby albicans positive cultures from suprapubic catheter that has been changed. The patient is on medication that currently can be used of as the patient is currently on that will be continued while waiting for repeat cultures to finalize. 2. Patient with stage III sacral pressure ulcer. Local wound care with a Santyl. Advised to keep the area off the pressure. present at bedside. Questions were answered. MMODL / IJN: [id number] /
[2018-04-24 06:12] LABS: Glucose,Whole Blood 82 mg/dL (75-99)
[2018-04-24] MEDS: HYDROcodone/APAP 7.5-325MG 1 EACH TAB PO PRN ×2 (07:44→20:49)
[2018-04-24 08:02] LABS: Anisocytosis Slight; Basophils % (A) 0 %; Eosinophils # (A) 0.1 k/uL (0-0.7); Eosinophils % (A) 4 %; HCT 24.2 % (39.0-53.0); HGB 7.5 gm/dL (13.0-17.5); Hypochromasia Marked; Lymphocytes # (A) 0.5 k/uL (1.0-4.8); Lymphocytes % (A) 17 %; MCH 27.7 pg (25.0-35.0); MCHC 31.1 g/dL (31.0-37.0); MCV 89.1 fL (80.0-100.0); Mean Platelet Volume 6.7; Monocytes # (A) 0.2 k/uL (0-1.0); Monocytes % (A) 6 %; Neutrophils # (A) 2.1 k/uL (1.3-7.7); Neutrophils % (A) 71 %; Platelet Count 124 k/uL (150-450); Poikilocytosis Slight; RBC 2.71 m/uL (4.30-5.90); RDW 18.4 % (11.5-15.5)
[2018-04-24 08:08] LABS: Anion Gap 3 mmol/L; Blood Urea Nitrogen 6 mg/dL (9-20); Calcium 7.7 mg/dL (8.4-10.2); Carbon Dioxide 25 mmol/L (22-30); Chloride 114 mmol/L (98-107); Glucose 83 mg/dL (74-99); Potassium 3.5 mmol/L (3.5-5.1); Sodium 142 mmol/L (137-145)
[2018-04-24] MEDS: METOPROLOL TARTRATE 12.5 MG TAB PO SCH ×2 (09:29→20:46)
[2018-04-24] MEDS: ZINC SULFATE 220 MG CAP PO SCH (09:30)
[2018-04-24] MEDS: FERROUS SULFATE 325 MG TAB PO SCH ×2 (09:30→20:45)
[2018-04-24] MEDS: ASPIRIN 81 MG PO SCH (09:30)
[2018-04-24] MEDS: LACOSAMIDE 50 MG TABLET PO SCH ×2 (09:30→20:45)
[2018-04-24] MEDS: CARBIDOPA-LEVODOPA 10-100 MG 1 EACH TAB PO SCH ×3 (09:30→20:46)
[2018-04-24] MEDS: ASCORBIC ACID 500 MG TAB PO SCH ×2 (09:30→20:44)
[2018-04-24] MEDS: LORATADINE 10 MG TAB PO SCH (09:31)
[2018-04-24] MEDS: PANTOPRAZOLE 40 MG TABLET PO SCH (09:31)
[2018-04-24] MEDS: amLODIPine 5 MG TAB PO SCH (09:31)
[2018-04-24] MEDS: APIXABAN 5 MG TAB PO SCH ×2 (09:31→20:44)
[2018-04-24] MEDS: DIVALPROEX 500 MG TABLET.DR PO SCH ×2 (09:31→20:44)
[2018-04-24 10:36] LABS: Folate, Serum 13.1 ng/mL; Iron Saturation 4.81 (15.00-50.00)
[2018-04-24 11:58] LABS: Immunoglobulin M 73.6 mg/dL (40.0-280.0)
[2018-04-24] MEDS: LEUCOVORIN 5 MG TAB PO SCH (12:44)
[2018-04-24 13:47] LABS: Protein, Total 4.8 g/dL (6.2-8.2)
--- NOTE | 2018-04-24 14:17 | CDI ---
Documentation Clarification Form Date: 04/24/2018 1:44:52 PM From: Nelly Suazo RN CCDS Admit Date: 04/23/2018 10:42:00 AM Patient Name: Alonzo Adam Visit Number: [id number] Discharge Date: ATTENTION: The Clinical Documentation Specialists (CDI) and [facility] Coding Staff appreciate your assistance in clarifying documentation. Please respond to the clarification below the line at the bottom and electronically sign. The CDI & [facility] Coding staff will review the response and follow-up if needed. Please note: Queries are made part of the Legal Health Record. If you have any questions, please contact the author of this message via ITS. Dr. Mart Borja A diagnosis of urosepsis has been documented in the H & P and in Progress Notes. History/Risk Factors: 62 yr old male presents to the ED from wound care for evaluation of hypotension. Medical history DM , HTN , stage 3 coccyx wound, neurogenic bladder with suprapubic catheter. Paraplegic . Per documentation in the ED note and ID consult this patient was admitted with an indwelling suprapubic catheter. Clinical Indicators: Urinalysis: 04/20/2018 protein 2+, Blood Trace, Leucocyte esterase large , Wbc >182, Squamous cell 10, mucus many UA 04/23/2018 protein 1+, Blood small, Leukocyte esterase Large , WBC >182, wbc clumps many , bacteria rare, mucus rare, Urine culture: 04/20/2018 Debby albicans 04/23/2018 culture pending. Lab results: 04/20 hgb 8.3, plt 130, Total protein 6.1, albumin 2.7 , 04/23 hgb 6.4 platelet 118 Treatment: insertion of new supbrapubic catheter. Rocpehin ivpb , Anidulafungin ivpb In your professional opinion, can you please clarify the etiology of the UTI, if known? UTI related to suprapubic catheter with Sepsis. UTI related to suprapubic catheter without Sepsis UTI not related to suprabuic catheter with Sepsis UTI not related to suprapubic catheter without Sepsis Other condition, please specify Unable to determine If an infective organism is present, please specify cause and effect relationship if applicable. (Last Revision: June 2017) Dx: UTI related to suprapubic catheter without Sepsis, present on admission MTDD
--- NOTE | 2018-04-24 14:48 | P.PN ---
Subjective This is a pleasant 62 years old male with past medical history of dementia, diabetes mellitus, GERD, hyperlipidemia, hypertension, seizure disorder, DVT on Eliquis, osteomyelitis of the coccygeal on that follow-up with the wound clinic every , status post colostomy, neurogenic bladder status post suprapubic catheter, paraplegia since laminectomy in February 2017 and paralyzed from waist down, previous infection with MRSA and VRE. And Parkinson disease Patient was sent from the wound care center for hypotension. Patient denies dysuria, he has suprapubic copy last changed on 04/11/2018. No suprapubic tenderness, no purulent discharge. No surrounding cellulitis. He complains also from right knee pain with no history of trauma. Since admission and his been afebrile, blood pressure on admission was 97/55, and currently 114/73 with heart rate of 52, after he received 1 L of normal saline bolus. WBC is 4.5K, hemoglobin 8.3. Creatinine 0.5. Liver enzymes and dressed of BMP were unremarkable. Urinalysis is suspicious for infection. If there was a checked and was negative. Urine culture was sent and the result is pending. He has chest x-ray which showed no acute cardiopulmonary process as per Radiologist. Patient was started on ceftriaxone. 04/22/2018 Patient is a fully awake and oriented, not in distress or pain. He still has suprapubic catheter in a Place. However blood pressure yesterday was on the low side as well as this morning, his Coreg was decreased down to 3.125 mg twice a day, we held Norvasc and lisinopril and give him another bolus of normal saline, his blood pressure improved from 90s/50s up to 122/62 currently. Continue with IV fluids but decrease the rate from 150 down to 75 mL/h . Will consult infectious disease for management of his UTI, and urology for his suprapubic catheter management. Right knee x-ray is negative and no more pain in his right knee area 04/23/2018 Patient is awake, not in distress or confused. No pain. Infectious disease evaluated the patient and start him on Eraxis, for Debby in the urine. Urology team evaluated the patient and they changed his suprapubic catheter. Labs from yesterday was showing pancytopenia, and today her his hemoglobin was dropping down from 7 down to 6.4, anemia workup was initiated, and will call hematology oncology consult for further evaluation. Vitals remained stable. And infectious disease R following the case. Since patient has severe anemia of 6.4, to recommended to have blood transfusion. Risks and benefits are explained to the patient for blood transfusion and he verbalized understanding and acceptance. Discussed with the staff 04/24/2018 Patient is awake, no abdominal pain. His blood pressure has improved in today 159/63. Oxygen saturation 97 on room air. Her WBC is 3K, hemoglobin is better today at 7.5 after 1 unit of blood transfusion. Platelets 124. Creatinine 0.5. Repeat UA from yesterday still showing infection. Patient remains still on anidulafungin and ceftriaxone. Infectious disease input is appreciated. Dairy Chemist team R following the case and he was started on leucovorin. Objective - Vital Signs Vital signs: Vital Signs Temp 97.6 F 04/24/18 07:00 Pulse 53 L 04/24/18 07:00 Resp 17 04/24/18 07:00 BP 159/63 04/24/18 07:00 Pulse Ox 97 04/24/18 07:00 Intake & Output 04/23/18 04/24/18 04/24/18 18:59 06:59 18:59 Intake Total 060 239 9065 Output Total 400 600 Balance 525 -290 1080 Intake: Intake, IV Titration 525 Amount Sodium Chloride 0.9% 1, 525 000 ml @ 75 mls/hr IV . [id number] [facility] Rx#:[id number] Oral 400 1080 Blood Product 0 310 Rc As-1 Unit 0 310 [id number] Output: Urine 400 600 Other: Voiding Method Indwelling Catheter Indwelling Catheter Indwelling Catheter - Exam GENERAL: The patient is alert and oriented x3, not in any acute distress. Well developed, well nourished. HEENT: Pupils are round and equally reacting to light. EOMI. No scleral icterus. No conjunctival pallor. Normocephalic, atraumatic. No pharyngeal erythema. No thyromegaly. CARDIOVASCULAR: S1 and S2 present. No murmurs, rubs, or gallops. PULMONARY: Chest is clear to auscultation, no wheezing or crackles. -ABDOMEN: Soft, nontender, nondistended, normoactive bowel sounds. No palpable organomegaly. Suprapubic catheter in place MUSCULOSKELETAL: No joint swelling or deformity. EXTREMITIES: No cyanosis, clubbing, or pedal edema. -NEUROLOGICAL: Gross neurological examination did not reveal any focal deficits. Paraplegia SKIN: No rashes. - Labs CBC & Chem 7: 04/24/18 07:21 04/24/18 07:21 Labs: Abnormal Lab Results - Last 24 Hours (Table) 04/23/18 04/23/18 04/23/18 Range/Units 15:16 15:16 16:11 WBC (3.8-10.6) k/uL RBC (4.30-5.90) m/uL Hgb (13.0-17.5) gm/dL Hct (39.0-53.0) % RDW (11.5-15.5) % Plt Count (150-450) k/uL Lymphocytes # (1.0-4.8) k/uL APTT (22.0-30.0) sec Chloride (98-107) mmol/L BUN (9-20) mg/dL Creatinine (0.66-1.25) mg/dL Calcium (8.4-10.2) mg/dL Iron 10 L (65-175) ug/dL TIBC 208 L (228-460) ug/dL Iron Saturation 4.81 L (15.00-50.00) Ferritin 433.2 H (22.0-322.0) ng/mL Total Protein (PEP) (6.2-8.2) g/dL Vitamin B12 982.0 H (200.0-944.0) pg/mL Urine Protein 1+ H (Negative) Urine Blood Small H (Negative) Ur Leukocyte Esterase Large H (Negative) Urine WBC >182 H (0-5) /hpf Urine WBC Clumps Many H (None) /hpf Urine Bacteria Rare H (None) /hpf Urine Mucus Rare H (None) /hpf Free [place] LC, Quant (0.33-1.94) mg/dL Crossmatch See Detail 04/23/18 04/23/18 04/24/18 Range/Units 20:30 21:40 07:21 WBC 3.0 L (3.8-10.6) k/uL RBC 2.71 L (4.30-5.90) m/uL Hgb 7.5 L (13.0-17.5) gm/dL Hct 24.2 L (39.0-53.0) % RDW 18.4 H (11.5-15.5) % Plt Count 124 L (150-450) k/uL Lymphocytes # 0.5 L (1.0-4.8) k/uL APTT 31.2 H (22.0-30.0) sec Chloride (98-107) mmol/L BUN (9-20) mg/dL Creatinine (0.66-1.25) mg/dL Calcium (8.4-10.2) mg/dL Iron 27 L (65-175) ug/dL TIBC (228-460) ug/dL Iron Saturation (15.00-50.00) Ferritin (22.0-322.0) ng/mL Total Protein (PEP) 4.8 L (6.2-8.2) g/dL Vitamin B12 (200.0-944.0) pg/mL Urine Protein (Negative) Urine Blood (Negative) Ur Leukocyte Esterase (Negative) Urine WBC (0-5) /hpf Urine WBC Clumps (None) /hpf Urine Bacteria (None) /hpf Urine Mucus (None) /hpf Free [place] LC, Quant 3.21 H (0.33-1.94) mg/dL Crossmatch 04/24/18 Range/Units 07:21 WBC (3.8-10.6) k/uL RBC (4.30-5.90) m/uL Hgb (13.0-17.5) gm/dL Hct (39.0-53.0) % RDW (11.5-15.5) % Plt Count (150-450) k/uL Lymphocytes # (1.0-4.8) k/uL APTT (22.0-30.0) sec Chloride 114 H (98-107) mmol/L BUN 6 L (9-20) mg/dL Creatinine 0.50 L (0.66-1.25) mg/dL Calcium 7.7 L (8.4-10.2) mg/dL Iron (65-175) ug/dL TIBC (228-460) ug/dL Iron Saturation (15.00-50.00) Ferritin (22.0-322.0) ng/mL Total Protein (PEP) (6.2-8.2) g/dL Vitamin B12 (200.0-944.0) pg/mL Urine Protein (Negative) Urine Blood (Negative) Ur Leukocyte Esterase (Negative) Urine WBC (0-5) /hpf Urine WBC Clumps (None) /hpf Urine Bacteria (None) /hpf Urine Mucus (None) /hpf Free [place] LC, Quant (0.33-1.94) mg/dL Crossmatch Microbiology - Last 24 Hours (Table) 04/20/18 12:10 Blood Culture - Preliminary Blood No Growth after 96 hours 04/23/18 16:11 Urine Culture - Preliminary Urine,Suprapubic Assessment and Plan Assessment: Hypotension and dehydration on admission, improved Pancytopenia Severe anemia needed blood transfusion Urosepsis, urine culture has been sent Right knee pain, improved Decubitus ulcer with history of coccygeal osteomyelitis, status post wound VAC, follow-up with the wound care center History of dementia Diabetes mellitus Hypertension Hyperlipidemia History of GERD History of seizure disorder on Keppra History of DVT on Eliquis Plan: This is a pleasant 62 years old male who presents because of urosepsis. Continue antibiotics and IV fluids. Follow-up urine culture. Consult infectious disease and urology services. Labs and medication were reviewed.. Continue same treatment. Continue with symptomatic treatment. Resume home medication. Monitor lytes and vitals. DVT and GI prophylaxis. Further recommendations of the clinical course of the patient DVT prophylaxis: Eliquis GI Prophylaxis: Protonix Prognosis is guarded
--- NOTE | 2018-04-24 18:21 | P.PN ---
Subjective Progress Note Date: 04/24/18 Principal diagnosis: pancytopenia In f/u today pt is tearful at times, feeling scared and uncertain about his diagnoses and health, he denies fever, headache, pain, recent seizure, nose, gum or other bleeding. Objective - Vital Signs Vital signs: Vital Signs Temp 97.2 F L 04/24/18 15:00 Pulse 53 L 04/24/18 15:00 Resp 16 04/24/18 15:00 BP 127/62 04/24/18 15:00 Pulse Ox 100 04/24/18 15:00 Intake & Output 04/23/18 04/24/18 04/24/18 18:59 06:59 18:59 Intake Total 194 361 7745 Output Total 460 789 6775 Balance 525 -290 -120 Intake: Intake, IV Titration 525 Amount Sodium Chloride 0.9% 1, 525 000 ml @ 75 mls/hr IV . [id number] [facility] Rx#:[id number] Oral 400 1080 Blood Product 0 310 Rc As-1 Unit 0 310 [id number] Output: Urine 458 804 2627 Other: Voiding Method Indwelling Catheter Indwelling Catheter Indwelling Catheter # Bowel Movements 0 - Constitutional General appearance: Present: average body habitus, cooperative, mild distress - EENT EENT Comment(s): dry mucus membranes Eyes: Present: anicteric sclerae, EOMI ENT: Present: hearing grossly normal - Respiratory Respiratory: bilateral: CTA, diminished - Cardiovascular Heart sounds: normal: S1, S2 Abnormal Heart Sounds: Absent: systolic murmur, diastolic murmur, rub, S3 Gallop , S4 Gallop, click, other - Peripheral edema leg Peripheral Edema: bilateral: Trace - Gastrointestinal General gastrointestinal: Present: normal bowel sounds, soft. Absent: absent bowel sounds, decreased bowel sounds, distended, hepatomegaly, hyperactive bowel sounds, organomegaly, rigid, scaphoid, splenomegaly, tenderness, umbilical hernia, ventral hernia - Integumentary Integumentary: Present: pale - Neurologic Neurologic: Present: CNII-XII intact - Musculoskeletal Musculoskeletal: Present: generalized weakness, strength equal bilaterally - Psychiatric Psychiatric: Present: A&O x's 3, intact judgment & insight - Labs CBC & Chem 7: 04/24/18 07:21 04/24/18 07:21 Labs: Abnormal Lab Results - Last 24 Hours (Table) 04/23/18 04/23/18 04/23/18 Range/Units 15:16 15:16 20:30 WBC (3.8-10.6) k/uL RBC (4.30-5.90) m/uL Hgb (13.0-17.5) gm/dL Hct (39.0-53.0) % RDW (11.5-15.5) % Plt Count (150-450) k/uL Lymphocytes # (1.0-4.8) k/uL APTT (22.0-30.0) sec Chloride (98-107) mmol/L BUN (9-20) mg/dL Creatinine (0.66-1.25) mg/dL Calcium (8.4-10.2) mg/dL Iron 10 L 27 L (65-175) ug/dL TIBC 208 L (228-460) ug/dL Iron Saturation 4.81 L (15.00-50.00) Ferritin 433.2 H (22.0-322.0) ng/mL Total Protein (PEP) 4.8 L (6.2-8.2) g/dL Vitamin B12 982.0 H (200.0-944.0) pg/mL Free [place] LC, Quant 3.21 H (0.33-1.94) mg/dL Crossmatch See Detail 04/23/18 04/24/18 04/24/18 Range/Units 21:40 07:21 07:21 WBC 3.0 L (3.8-10.6) k/uL RBC 2.71 L (4.30-5.90) m/uL Hgb 7.5 L (13.0-17.5) gm/dL Hct 24.2 L (39.0-53.0) % RDW 18.4 H (11.5-15.5) % Plt Count 124 L (150-450) k/uL Lymphocytes # 0.5 L (1.0-4.8) k/uL APTT 31.2 H (22.0-30.0) sec Chloride 114 H (98-107) mmol/L BUN 6 L (9-20) mg/dL Creatinine 0.50 L (0.66-1.25) mg/dL Calcium 7.7 L (8.4-10.2) mg/dL Iron (65-175) ug/dL TIBC (228-460) ug/dL Iron Saturation (15.00-50.00) Ferritin (22.0-322.0) ng/mL Total Protein (PEP) (6.2-8.2) g/dL Vitamin B12 (200.0-944.0) pg/mL Free [place] LC, Quant (0.33-1.94) mg/dL Crossmatch Microbiology - Last 24 Hours (Table) 04/20/18 12:10 Blood Culture - Preliminary Blood No Growth after 96 hours 04/23/18 16:11 Urine Culture - Preliminary Urine,Suprapubic Assessment and Plan (1) Pancytopenia Narrative/Plan: Anemia documented in the chart as far back as 07/2017, anemia work up pending. Thrombocytopenia is of new onset, this visit, platelets are not normal but, certainly not at a dangerous low or a low requiring intervention at this time Leukopenia is of new onset, ANC is normal at 2.1. No acute intervention needed Panycytopenia work up is pending, recommendations will follow Suspect that pt long standing history of anticonvulsants coupled with acute illness/infection has led to marrow stress that is affecting all cell lines. Leucovorin has been ordered to reverse effects of folate antagonistic medications. Current Visit: Yes Status: Acute Priority: High Code(s): D61.818 - OTHER PANCYTOPENIA SNOMED Code(s): 179594960
[2018-04-24] MEDS: COLLAGENASE 250 UNIT/GM OINTMENT 30 GM TUBE TOPICAL SCH (18:50)
[2018-04-24] MEDS: DONEPEZIL 5 MG TAB PO SCH (20:45)
[2018-04-24] MEDS: MELATONIN 3 MG TABLET PO SCH (20:45)
[2018-04-24] MEDS: QUEtiapine 50 MG TAB PO SCH (20:46)
--- NOTE | 2018-04-24 23:08 | PN ---
PROGRESS NOTE DATE OF SERVICE: 04/24/2018. REASON FOR FOLLOW UP: Catheter-associated urinary tract infection. INTERVAL HISTORY: The patient is afebrile. The patient seemed to be slightly more sleepy today. He did provide adequate history. No nausea or vomiting has been reported, or any diarrhea but the nursing staff. PHYSICAL EXAMINATION: Blood pressure is 127/52 with a pulse of 66, temperature 97.9, he is 98% on room air. GENERAL DESCRIPTION: A middle-aged male lying in bed in no distress. RESPIRATORY SYSTEM: Unlabored breathing. Clear to auscultation anteriorly. HEART: S1, S2. Regular rate and rhythm. ABDOMEN: Soft, no tenderness. LABS: Hemoglobin 7.5, white count 3.0, BUN of 6, creatinine 0.50. Repeat urine culture currently pending. DIAGNOSTIC IMPRESSION AND PLAN: Patient with catheter-associated urinary tract infection. Urine with Debby albicans. Patient is currently on because of drug interaction with his medications and Diflucan. Repeat urine after change of Hagan catheter has been pending. Keep the patient on and Rocephin at this point while waiting for repeat cultures to finalize. Continue supportive care. MMODL / IJN: [id number] /
[2018-04-25] MEDS: ANIDULAFUNGIN 100 MG in SODIUM CHLORIDE 0.9% 100 ML IVPB SCH ×2 (00:31→21:20)
[2018-04-25] MEDS: SODIUM CHLORIDE 0.9% 1,000 ML IV SCH ×2 (05:15→22:49)
[2018-04-25 05:38] LABS: Glucose,Whole Blood 93 mg/dL (75-99)
[2018-04-25 08:36] LABS: Anisocytosis Slight; Basophils % (A) 0 %; Eosinophils # (A) 0.1 k/uL (0-0.7); Eosinophils % (A) 4 %; HCT 22.6 % (39.0-53.0); Hypochromasia Moderate; Lymphocytes # (A) 0.6 k/uL (1.0-4.8); Lymphocytes % (A) 19 %; MCH 27.2 pg (25.0-35.0); MCHC 30.2 g/dL (31.0-37.0); MCV 89.9 fL (80.0-100.0); Mean Platelet Volume 7.3; Monocytes # (A) 0.2 k/uL (0-1.0); Monocytes % (A) 6 %; Neutrophils # (A) 2.2 k/uL (1.3-7.7); Neutrophils % (A) 68 %; Platelet Count 152 k/uL (150-450); RBC 2.52 m/uL (4.30-5.90); RDW 18.7 % (11.5-15.5); WBC 3.3 k/uL (3.8-10.6)
[2018-04-25 08:40] LABS: HGB 6.8 gm/dL (13.0-17.5)
[2018-04-25 08:47] LABS: Anion Gap 2 mmol/L; Blood Urea Nitrogen 6 mg/dL (9-20); Calcium 7.6 mg/dL (8.4-10.2); Carbon Dioxide 27 mmol/L (22-30); Chloride 112 mmol/L (98-107); Glucose 78 mg/dL (74-99); Potassium 3.4 mmol/L (3.5-5.1); Sodium 141 mmol/L (137-145)
[2018-04-25] MEDS: DIVALPROEX 500 MG TABLET.DR PO SCH ×2 (09:33→21:21)
[2018-04-25] MEDS: LACOSAMIDE 50 MG TABLET PO SCH ×2 (09:33→21:21)
[2018-04-25] MEDS: PANTOPRAZOLE 40 MG TABLET PO SCH (09:33)
[2018-04-25] MEDS: ASCORBIC ACID 500 MG TAB PO SCH ×2 (09:33→21:21)
[2018-04-25] MEDS: METOPROLOL TARTRATE 12.5 MG TAB PO SCH ×2 (09:33→21:22)
[2018-04-25] MEDS: LORATADINE 10 MG TAB PO SCH (09:33)
[2018-04-25] MEDS: ASPIRIN 81 MG PO SCH (09:33)
[2018-04-25] MEDS: FERROUS SULFATE 325 MG TAB PO SCH ×2 (09:33→21:21)
[2018-04-25] MEDS: APIXABAN 5 MG TAB PO SCH ×2 (09:33→21:21)
[2018-04-25] MEDS: amLODIPine 5 MG TAB PO SCH (09:33)
[2018-04-25] MEDS: CARBIDOPA-LEVODOPA 10-100 MG 1 EACH TAB PO SCH ×3 (09:36→21:22)
[2018-04-25] MEDS: LEUCOVORIN 5 MG TAB PO SCH (09:37)
[2018-04-25] MEDS: ZINC SULFATE 220 MG CAP PO SCH (09:37)
[2018-04-25] MEDS: HYDROcodone/APAP 7.5-325MG 1 EACH TAB PO PRN (10:42)
[2018-04-25] MEDS: COLLAGENASE 250 UNIT/GM OINTMENT 30 GM TUBE TOPICAL SCH ×2 (10:42→16:22)
--- NOTE | 2018-04-25 14:54 | P.PN ---
Subjective Progress Note Date: 04/25/18 Principal diagnosis: pancytopenia In f/u today pt is more comfortable, at bedside, states trouble sleeping last night but is comfortable today, no fever, nausea, MALLIKA, bleeding or pain. Objective - Vital Signs Vital signs: Vital Signs Temp 98.5 F 04/25/18 13:08 Pulse 62 04/25/18 13:08 Resp 16 04/25/18 13:08 BP 114/63 04/25/18 13:08 Pulse Ox 94 L 04/25/18 13:08 Intake & Output 04/24/18 04/25/18 04/25/18 18:59 06:59 18:59 Intake Total 1440 200 310 Output Total 1200 1700 200 Balance 240 -1500 110 Intake: Oral 1440 200 Blood Product 310 Rc As-1 Unit 310 [id number] Output: Urine 1200 1300 Suprapubic 1300 Stool 400 200 Other: Voiding Method Indwelling Catheter Indwelling Catheter Indwelling Catheter # Bowel Movements 0 - Constitutional General appearance: Present: average body habitus, cooperative, no acute distress - EENT Eyes: Present: anicteric sclerae, EOMI ENT: Present: hearing grossly normal - Respiratory Respiratory: bilateral: CTA - Cardiovascular Heart sounds: normal: S1, S2 - Gastrointestinal General gastrointestinal: Present: normal bowel sounds, soft - Integumentary Integumentary: Present: pale - Neurologic Neurologic: Present: CNII-XII intact - Musculoskeletal Musculoskeletal: Present: generalized weakness, strength equal bilaterally - Psychiatric Psychiatric: Present: A&O x's 3, appropriate affect, intact judgment & insight - Labs CBC & Chem 7: 04/25/18 07:30 04/25/18 07:30 Labs: Abnormal Lab Results - Last 24 Hours (Table) 04/23/18 04/25/18 04/25/18 Range/Units 15:16 07:30 07:30 WBC 3.3 L (3.8-10.6) k/uL RBC 2.52 L (4.30-5.90) m/uL Hgb 6.8 L* (13.0-17.5) gm/dL Hct 22.6 L (39.0-53.0) % MCHC 30.2 L (31.0-37.0) g/dL RDW 18.7 H (11.5-15.5) % Lymphocytes # 0.6 L (1.0-4.8) k/uL Potassium 3.4 L (3.5-5.1) mmol/L Chloride 112 H (98-107) mmol/L BUN 6 L (9-20) mg/dL Creatinine 0.53 L (0.66-1.25) mg/dL Calcium 7.6 L (8.4-10.2) mg/dL Crossmatch See Detail Microbiology - Last 24 Hours (Table) 04/20/18 12:10 Blood Culture - Preliminary Blood No Growth after 120 hours Assessment and Plan (1) Pancytopenia Narrative/Plan: Anemia documented in the chart as far back as 07/2017, baseline is between 8-9. Anemia work up showing no deficiencies and more consistent with chronic inflammation. His Hgb is 6.8 today, 1 unit PRBCs ordered. No other interventions at this time Thrombocytopenia was of new onset this visit, platelets normal today Leukopenia is of new onset, improving slowly. Panycytopenia work up still has some labs pending but, do not suspect a primary marrow disorder, no deficiencies. Work up to finalize, recommendations will follow Suspect that pt long standing history of anticonvulsants coupled with acute illness/infection has led to marrow stress that is affecting all cell lines. Leucovorin has been ordered to reverse effects of folate antagonistic medications. Cont as ordered for now Ongoing CBC monitoring Current Visit: Yes Status: Acute Priority: High Code(s): D61.818 - OTHER PANCYTOPENIA SNOMED Code(s): 104030055
[2018-04-25] MEDS: DONEPEZIL 5 MG TAB PO SCH (21:21)
[2018-04-25] MEDS: MELATONIN 3 MG TABLET PO SCH (21:22)
[2018-04-25] MEDS: QUEtiapine 50 MG TAB PO SCH (21:22)
[2018-04-25] MEDS: guaiFENesin SYRUP 100MG/5ML 200 MG/10 ML CUP PO PRN (21:30)
--- NOTE | 2018-04-25 21:48 | P.PN ---
Subjective This is a pleasant 62 years old male with past medical history of dementia, diabetes mellitus, GERD, hyperlipidemia, hypertension, seizure disorder, DVT on Eliquis, osteomyelitis of the coccygeal on that follow-up with the wound clinic every , status post colostomy, neurogenic bladder status post suprapubic catheter, paraplegia since laminectomy in February 2017 and paralyzed from waist down, previous infection with MRSA and VRE. And Parkinson disease Patient was sent from the wound care center for hypotension. Patient denies dysuria, he has suprapubic copy last changed on 04/11/2018. No suprapubic tenderness, no purulent discharge. No surrounding cellulitis. He complains also from right knee pain with no history of trauma. Since admission and his been afebrile, blood pressure on admission was 97/55, and currently 114/73 with heart rate of 52, after he received 1 L of normal saline bolus. WBC is 4.5K, hemoglobin 8.3. Creatinine 0.5. Liver enzymes and dressed of BMP were unremarkable. Urinalysis is suspicious for infection. If there was a checked and was negative. Urine culture was sent and the result is pending. He has chest x-ray which showed no acute cardiopulmonary process as per Radiologist. Patient was started on ceftriaxone. 04/22/2018 Patient is a fully awake and oriented, not in distress or pain. He still has suprapubic catheter in a Place. However blood pressure yesterday was on the low side as well as this morning, his Coreg was decreased down to 3.125 mg twice a day, we held Norvasc and lisinopril and give him another bolus of normal saline, his blood pressure improved from 90s/50s up to 122/62 currently. Continue with IV fluids but decrease the rate from 150 down to 75 mL/h . Will consult infectious disease for management of his UTI, and urology for his suprapubic catheter management. Right knee x-ray is negative and no more pain in his right knee area 04/23/2018 Patient is awake, not in distress or confused. No pain. Infectious disease evaluated the patient and start him on Eraxis, for Debby in the urine. Urology team evaluated the patient and they changed his suprapubic catheter. Labs from yesterday was showing pancytopenia, and today her his hemoglobin was dropping down from 7 down to 6.4, anemia workup was initiated, and will call hematology oncology consult for further evaluation. Vitals remained stable. And infectious disease R following the case. Since patient has severe anemia of 6.4, to recommended to have blood transfusion. Risks and benefits are explained to the patient for blood transfusion and he verbalized understanding and acceptance. Discussed with the staff 04/24/2018 Patient is awake, no abdominal pain. His blood pressure has improved in today 159/63. Oxygen saturation 97 on room air. Her WBC is 3K, hemoglobin is better today at 7.5 after 1 unit of blood transfusion. Platelets 124. Creatinine 0.5. Repeat UA from yesterday still showing infection. Patient remains still on anidulafungin and ceftriaxone. Infectious disease input is appreciated. Supervisor Painting Department team R following the case and he was started on leucovorin. 04/25/2018 pt is awake and his blood pressure is stable, repeat urine culture is still pending although pt remains on ceftriaxone and anidulafungin, his hemoglobin dropped to 6.8 that needed another unit of blood transfusion , explained the risks and pt understood and agrees to blood transfusion . platelet up to normal level today. pt remains on leucoverin . Objective - Vital Signs Vital signs: Vital Signs Temp 98.5 F 04/25/18 13:08 Pulse 62 04/25/18 13:08 Resp 16 04/25/18 13:08 BP 114/63 04/25/18 13:08 Pulse Ox 94 L 04/25/18 13:08 Intake & Output 04/25/18 04/25/18 04/26/18 06:59 18:59 06:59 Intake Total 200 310 Output Total 1700 200 Balance -1500 110 Intake: Oral 200 Blood Product 310 Rc As-1 Unit 310 [id number] Output: Urine 1300 Suprapubic 1300 Stool 400 200 Other: Voiding Method Indwelling Catheter Indwelling Catheter - Exam GENERAL: The patient is alert and oriented x3, not in any acute distress. Well developed, well nourished. HEENT: Pupils are round and equally reacting to light. EOMI. No scleral icterus. No conjunctival pallor. Normocephalic, atraumatic. No pharyngeal erythema. No thyromegaly. CARDIOVASCULAR: S1 and S2 present. No murmurs, rubs, or gallops. PULMONARY: Chest is clear to auscultation, no wheezing or crackles. -ABDOMEN: Soft, nontender, nondistended, normoactive bowel sounds. No palpable organomegaly. Suprapubic catheter in place MUSCULOSKELETAL: No joint swelling or deformity. EXTREMITIES: No cyanosis, clubbing, or pedal edema. -NEUROLOGICAL: Gross neurological examination did not reveal any focal deficits. Paraplegia SKIN: No rashes. - Labs CBC & Chem 7: 04/25/18 07:30 04/25/18 07:30 Labs: Abnormal Lab Results - Last 24 Hours (Table) 04/23/18 04/25/18 04/25/18 Range/Units 15:16 07:30 07:30 WBC 3.3 L (3.8-10.6) k/uL RBC 2.52 L (4.30-5.90) m/uL Hgb 6.8 L* (13.0-17.5) gm/dL Hct 22.6 L (39.0-53.0) % MCHC 30.2 L (31.0-37.0) g/dL RDW 18.7 H (11.5-15.5) % Lymphocytes # 0.6 L (1.0-4.8) k/uL Potassium 3.4 L (3.5-5.1) mmol/L Chloride 112 H (98-107) mmol/L BUN 6 L (9-20) mg/dL Creatinine 0.53 L (0.66-1.25) mg/dL Calcium 7.6 L (8.4-10.2) mg/dL Crossmatch See Detail Microbiology - Last 24 Hours (Table) 04/23/18 16:11 Urine Culture - Preliminary Urine,Suprapubic Yeast species 04/20/18 12:10 Blood Culture - Preliminary Blood No Growth after 120 hours Assessment and Plan Assessment: Hypotension and dehydration on admission, improved Pancytopenia Severe anemia needed blood transfusion Urosepsis, urine culture has been sent Right knee pain, improved Decubitus ulcer with history of coccygeal osteomyelitis, status post wound VAC, follow-up with the wound care center History of dementia Diabetes mellitus Hypertension Hyperlipidemia History of GERD History of seizure disorder on Keppra History of DVT on Eliquis Plan: This is a pleasant 62 years old male who presents because of urosepsis. Continue antibiotics and IV fluids. Follow-up urine culture. Consult infectious disease and urology services. Labs and medication were reviewed.. Continue same treatment. Continue with symptomatic treatment. Resume home medication. Monitor lytes and vitals. DVT and GI prophylaxis. Further recommendations of the clinical course of the patient DVT prophylaxis: Eliquis GI Prophylaxis: Protonix Prognosis is guarded
[2018-04-26 00:32] LABS: Appearance,Urine Clear (Clear); Bilirubin,Urine Negative (Negative); Blood,Urine Negative (Negative); Color,Urine Light Yellow; Glucose,Urine (UA) Negative (Negative); Ketones,Urine Negative (Negative); Leukocyte Esterase,Urine Small (Negative); Mucus,Urine Rare /hpf; Nitrite,Urine Negative (Negative); Protein,Urine Negative (Negative); RBC,Urine 3 /hpf (0-5); Specific Gravity,Urine 1.006 (1.001-1.035); Urobilinogen,Urine <2.0 mg/dL (<2.0)
[2018-04-26 06:17] LABS: Glucose,Whole Blood 102 mg/dL (75-99)
--- NOTE | 2018-04-26 06:43 | PN ---
PROGRESS NOTE DATE OF SERVICE: 04/25/2018 REASON FOR FOLLOWUP: Catheter-associated urinary intact infection. INTERVAL HISTORY: The patient is currently afebrile, has been breathing comfortably. Denies having chest pain or any cough. No abdominal pain or any diarrhea. PHYSICAL EXAMINATION: On examination, blood pressure 157/73 with a pulse of 68, temperature 98.6. He is 97% on room air. General description is a middle-aged male lying in bed in no distress. RESPIRATORY SYSTEM: Unlabored breathing, clear to auscultation anteriorly. HEART: S1, S2. Regular rate and rhythm. ABDOMEN: Soft, no tenderness. LABS: Hemoglobin 6.8, white count 3.3, BUN of 6, creatinine 0.53. Repeat urine also showing the yeast. DIAGNOSTIC IMPRESSION AND PLAN: Patient with yeast catheter-associated urinary tract infection in this patient who is currently on the medication that was currently getting the use of the Diflucan especially . The patient is currently on Eraxis with repeat urine after change of Hagan was also showing same pathogen. Patient may need to continue with short course of Eraxis in the outpatient setting. Will repeat another UA and culture today and if it has not cleared will order a Midline for tomorrow. Continue supportive care. MMODL / IJN: [id number] /
[2018-04-26 07:24] LABS: Anion Gap 2 mmol/L; Blood Urea Nitrogen 5 mg/dL (9-20); Calcium 7.6 mg/dL (8.4-10.2); Carbon Dioxide 28 mmol/L (22-30); Chloride 111 mmol/L (98-107); Glucose 103 mg/dL (74-99); Potassium 3.3 mmol/L (3.5-5.1); Sodium 141 mmol/L (137-145)
[2018-04-26 07:59] LABS: Anisocytosis Slight; Basophils % (A) 1 %; Eosinophils # (A) 0.2 k/uL (0-0.7); Eosinophils % (A) 5 %; HCT 26.8 % (39.0-53.0); Hypochromasia Moderate; Lymphocytes # (A) 0.5 k/uL (1.0-4.8); Lymphocytes % (A) 12 %; MCH 27.6 pg (25.0-35.0); MCHC 30.6 g/dL (31.0-37.0); MCV 90.2 fL (80.0-100.0); Mean Platelet Volume 6.9; Monocytes # (A) 0.3 k/uL (0-1.0); Monocytes % (A) 6 %; Neutrophils # (A) 3.3 k/uL (1.3-7.7); Neutrophils % (A) 76 %; Platelet Count 162 k/uL (150-450); Poikilocytosis Slight; RBC 2.97 m/uL (4.30-5.90); RDW 18.2 % (11.5-15.5); WBC 4.3 k/uL (3.8-10.6)
[2018-04-26 08:03] LABS: HGB 8.2 gm/dL (13.0-17.5)
[2018-04-26] MEDS: SODIUM CHLORIDE 0.9% 1,000 ML IV SCH ×2 (08:59→21:53)
[2018-04-26] MEDS: ASPIRIN 81 MG PO SCH (09:00)
[2018-04-26] MEDS: ZINC SULFATE 220 MG CAP PO SCH (09:00)
[2018-04-26] MEDS: FERROUS SULFATE 325 MG TAB PO SCH ×2 (09:00→21:20)
[2018-04-26] MEDS: APIXABAN 5 MG TAB PO SCH ×2 (09:00→21:20)
[2018-04-26] MEDS: METOPROLOL TARTRATE 12.5 MG TAB PO SCH ×2 (09:00→21:20)
[2018-04-26] MEDS: LEUCOVORIN 5 MG TAB PO SCH (09:00)
[2018-04-26] MEDS: CARBIDOPA-LEVODOPA 10-100 MG 1 EACH TAB PO SCH ×3 (09:00→21:21)
[2018-04-26] MEDS: ASCORBIC ACID 500 MG TAB PO SCH ×2 (09:00→21:21)
[2018-04-26] MEDS: DIVALPROEX 500 MG TABLET.DR PO SCH ×2 (09:00→21:21)
[2018-04-26] MEDS: amLODIPine 5 MG TAB PO SCH (09:00)
[2018-04-26] MEDS: PANTOPRAZOLE 40 MG TABLET PO SCH (09:00)
[2018-04-26] MEDS: LORATADINE 10 MG TAB PO SCH (09:00)
[2018-04-26] MEDS: LACOSAMIDE 50 MG TABLET PO SCH ×2 (09:01→21:20)
[2018-04-26 10:32] LABS: Albumin 2.06 g/dL (3.80-4.90); Gamma Globulin 1.05 g/dL (0.70-1.50)
[2018-04-26] MEDS: COLLAGENASE 250 UNIT/GM OINTMENT 30 GM TUBE TOPICAL SCH (13:57)
--- NOTE | 2018-04-26 17:13 | P.PN ---
Subjective This is a pleasant 62 years old male with past medical history of dementia, diabetes mellitus, GERD, hyperlipidemia, hypertension, seizure disorder, DVT on Eliquis, osteomyelitis of the coccygeal on that follow-up with the wound clinic every , status post colostomy, neurogenic bladder status post suprapubic catheter, paraplegia since laminectomy in February 2017 and paralyzed from waist down, previous infection with MRSA and VRE. And Parkinson disease Patient was sent from the wound care center for hypotension. Patient denies dysuria, he has suprapubic copy last changed on 04/11/2018. No suprapubic tenderness, no purulent discharge. No surrounding cellulitis. He complains also from right knee pain with no history of trauma. Since admission and his been afebrile, blood pressure on admission was 97/55, and currently 114/73 with heart rate of 52, after he received 1 L of normal saline bolus. WBC is 4.5K, hemoglobin 8.3. Creatinine 0.5. Liver enzymes and dressed of BMP were unremarkable. Urinalysis is suspicious for infection. If there was a checked and was negative. Urine culture was sent and the result is pending. He has chest x-ray which showed no acute cardiopulmonary process as per Radiologist. Patient was started on ceftriaxone. 04/22/2018 Patient is a fully awake and oriented, not in distress or pain. He still has suprapubic catheter in a Place. However blood pressure yesterday was on the low side as well as this morning, his Coreg was decreased down to 3.125 mg twice a day, we held Norvasc and lisinopril and give him another bolus of normal saline, his blood pressure improved from 90s/50s up to 122/62 currently. Continue with IV fluids but decrease the rate from 150 down to 75 mL/h . Will consult infectious disease for management of his UTI, and urology for his suprapubic catheter management. Right knee x-ray is negative and no more pain in his right knee area 04/23/2018 Patient is awake, not in distress or confused. No pain. Infectious disease evaluated the patient and start him on Eraxis, for Debby in the urine. Urology team evaluated the patient and they changed his suprapubic catheter. Labs from yesterday was showing pancytopenia, and today her his hemoglobin was dropping down from 7 down to 6.4, anemia workup was initiated, and will call hematology oncology consult for further evaluation. Vitals remained stable. And infectious disease R following the case. Since patient has severe anemia of 6.4, to recommended to have blood transfusion. Risks and benefits are explained to the patient for blood transfusion and he verbalized understanding and acceptance. Discussed with the staff 04/24/2018 Patient is awake, no abdominal pain. His blood pressure has improved in today 159/63. Oxygen saturation 97 on room air. Her WBC is 3K, hemoglobin is better today at 7.5 after 1 unit of blood transfusion. Platelets 124. Creatinine 0.5. Repeat UA from yesterday still showing infection. Patient remains still on anidulafungin and ceftriaxone. Infectious disease input is appreciated. Manufacturing Project Manager team R following the case and he was started on leucovorin. 04/25/2018 pt is awake and his blood pressure is stable, repeat urine culture is still pending although pt remains on ceftriaxone and anidulafungin, his hemoglobin dropped to 6.8 that needed another unit of blood transfusion , explained the risks and pt understood and agrees to blood transfusion . platelet up to normal level today. pt remains on leucoverin . 04/26/2018 Patient is more lethargic. However his blood pressure is stabilized and no more hypotension. His pancytopenia is improving after starting leucoverin . Potassium 3.3 which is replaced, creatinine 0.6. Repeat urine culture is growing Debby. A third set of repeat UA and urine culture will be ordered and patient may need a midline for continue antibiotic as an outpatient. Objective - Vital Signs Vital signs: Vital Signs Temp 98.4 F 04/26/18 14:27 Pulse 54 L 04/26/18 14:27 Resp 16 04/26/18 14:27 BP 136/82 04/26/18 14:27 Pulse Ox 96 04/26/18 14:27 Intake & Output 04/25/18 04/26/18 04/26/18 18:59 06:59 18:59 Intake Total 310 150 400 Output Total 200 1350 1100 Balance 110 -1200 -700 Weight 97.522 kg Intake: Intake, IV Titration 400 Amount Sodium Chloride 0.9% 1, 400 000 ml @ 50 mls/hr IV . Q20H [facility] Rx#:[id number] Oral 150 Blood Product 310 Rc As-1 Unit 310 [id number] Output: Urine 1350 1100 Suprapubic 1100 Stool 200 Other: Voiding Method Indwelling Catheter Indwelling Catheter Indwelling Catheter - Exam GENERAL: The patient is alert and oriented x3, not in any acute distress. Well developed, well nourished. HEENT: Pupils are round and equally reacting to light. EOMI. No scleral icterus. No conjunctival pallor. Normocephalic, atraumatic. No pharyngeal erythema. No thyromegaly. CARDIOVASCULAR: S1 and S2 present. No murmurs, rubs, or gallops. PULMONARY: Chest is clear to auscultation, no wheezing or crackles. -ABDOMEN: Soft, nontender, nondistended, normoactive bowel sounds. No palpable organomegaly. Suprapubic catheter in place MUSCULOSKELETAL: No joint swelling or deformity. EXTREMITIES: No cyanosis, clubbing, or pedal edema. -NEUROLOGICAL: Gross neurological examination did not reveal any focal deficits. Paraplegia SKIN: No rashes. - Labs CBC & Chem 7: 04/26/18 06:30 04/26/18 06:30 Labs: Abnormal Lab Results - Last 24 Hours (Table) 04/23/18 04/26/18 04/26/18 Range/Units 20:30 00:12 06:05 RBC (4.30-5.90) m/uL Hgb (13.0-17.5) gm/dL Hct (39.0-53.0) % MCHC (31.0-37.0) g/dL RDW (11.5-15.5) % Lymphocytes # (1.0-4.8) k/uL Potassium (3.5-5.1) mmol/L Chloride (98-107) mmol/L BUN (9-20) mg/dL Creatinine (0.66-1.25) mg/dL Glucose (74-99) mg/dL POC Glucose (mg/dL) 102 H (75-99) mg/dL Calcium (8.4-10.2) mg/dL Albumin (PEP) 2.06 L (3.80-4.90) g/dL Beta Globulins 0.58 L (0.60-1.30) g/dL Ur Leukocyte Esterase Small H (Negative) Urine Mucus Rare H (None) /hpf 04/26/18 04/26/18 Range/Units 06:30 06:30 RBC 2.97 L (4.30-5.90) m/uL Hgb 8.2 L (13.0-17.5) gm/dL Hct 26.8 L (39.0-53.0) % MCHC 30.6 L (31.0-37.0) g/dL RDW 18.2 H (11.5-15.5) % Lymphocytes # 0.5 L (1.0-4.8) k/uL Potassium 3.3 L (3.5-5.1) mmol/L Chloride 111 H (98-107) mmol/L BUN 5 L (9-20) mg/dL Creatinine 0.61 L (0.66-1.25) mg/dL Glucose 103 H (74-99) mg/dL POC Glucose (mg/dL) (75-99) mg/dL Calcium 7.6 L (8.4-10.2) mg/dL Albumin (PEP) (3.80-4.90) g/dL Beta Globulins (0.60-1.30) g/dL Ur Leukocyte Esterase (Negative) Urine Mucus (None) /hpf Microbiology - Last 24 Hours (Table) 04/20/18 12:10 Blood Culture - Final Blood No Growth after 144 hours 04/23/18 16:11 Urine Culture - Preliminary Urine,Suprapubic Debby albicans Assessment and Plan Assessment: Hypotension and dehydration on admission, improved Pancytopenia Severe anemia needed blood transfusion Urosepsis, urine culture has been sent Right knee pain, improved Decubitus ulcer with history of coccygeal osteomyelitis, status post wound VAC, follow-up with the wound care center History of dementia Diabetes mellitus Hypertension Hyperlipidemia History of GERD History of seizure disorder on Keppra History of DVT on Eliquis Plan: This is a pleasant 62 years old male who presents because of urosepsis. Continue antibiotics and IV fluids. Follow-up urine culture. Consult infectious disease and urology services. Labs and medication were reviewed.. Continue same treatment. Continue with symptomatic treatment. Resume home medication. Monitor lytes and vitals. DVT and GI prophylaxis. Further recommendations of the clinical course of the patient DVT prophylaxis: Eliquis GI Prophylaxis: Protonix Prognosis is guarded
--- NOTE | 2018-04-26 17:59 | P.PN ---
Subjective Progress Note Date: 04/26/18 Principal diagnosis: Pancytopenia Blood counts improving, patient is fatigue, able to be awaken but Objective - Vital Signs Vital signs: Vital Signs Temp 98.4 F 04/26/18 14:27 Pulse 54 L 04/26/18 14:27 Resp 16 04/26/18 14:27 BP 136/82 04/26/18 14:27 Pulse Ox 96 04/26/18 14:27 Intake & Output 04/25/18 04/26/18 04/26/18 18:59 06:59 18:59 Intake Total 310 150 400 Output Total 200 1350 1100 Balance 110 -1200 -700 Weight 97.522 kg Intake: Intake, IV Titration 400 Amount Sodium Chloride 0.9% 1, 400 000 ml @ 50 mls/hr IV . Q20H [facility] Rx#:[id number] Oral 150 Blood Product 310 Rc As-1 Unit 310 [id number] Output: Urine 1350 1100 Suprapubic 1100 Stool 200 Other: Voiding Method Indwelling Catheter Indwelling Catheter Indwelling Catheter - Exam Constitutional General appearance: Present: average body habitus, cooperative, no acute distress - EENT Eyes: Present: anicteric sclerae, EOMI ENT: Present: hearing grossly normal - Respiratory Respiratory: bilateral: CTA - Cardiovascular Heart sounds: normal: S1, S2 - Gastrointestinal General gastrointestinal: Present: normal bowel sounds, soft - Integumentary Integumentary: Present: pale - Neurologic Neurologic: Present: CNII-XII intact - Musculoskeletal Musculoskeletal: Present: generalized weakness, strength equal bilaterally - Psychiatric Psychiatric: Present: A&O x's 3, appropriate affect, intact judgment & insight - Labs CBC & Chem 7: 04/26/18 06:30 04/26/18 06:30 Labs: Abnormal Lab Results - Last 24 Hours (Table) 04/23/18 04/26/18 04/26/18 Range/Units 20:30 00:12 06:05 RBC (4.30-5.90) m/uL Hgb (13.0-17.5) gm/dL Hct (39.0-53.0) % MCHC (31.0-37.0) g/dL RDW (11.5-15.5) % Lymphocytes # (1.0-4.8) k/uL Potassium (3.5-5.1) mmol/L Chloride (98-107) mmol/L BUN (9-20) mg/dL Creatinine (0.66-1.25) mg/dL Glucose (74-99) mg/dL POC Glucose (mg/dL) 102 H (75-99) mg/dL Calcium (8.4-10.2) mg/dL Albumin (PEP) 2.06 L (3.80-4.90) g/dL Beta Globulins 0.58 L (0.60-1.30) g/dL Ur Leukocyte Esterase Small H (Negative) Urine Mucus Rare H (None) /hpf 04/26/18 04/26/18 Range/Units 06:30 06:30 RBC 2.97 L (4.30-5.90) m/uL Hgb 8.2 L (13.0-17.5) gm/dL Hct 26.8 L (39.0-53.0) % MCHC 30.6 L (31.0-37.0) g/dL RDW 18.2 H (11.5-15.5) % Lymphocytes # 0.5 L (1.0-4.8) k/uL Potassium 3.3 L (3.5-5.1) mmol/L Chloride 111 H (98-107) mmol/L BUN 5 L (9-20) mg/dL Creatinine 0.61 L (0.66-1.25) mg/dL Glucose 103 H (74-99) mg/dL POC Glucose (mg/dL) (75-99) mg/dL Calcium 7.6 L (8.4-10.2) mg/dL Albumin (PEP) (3.80-4.90) g/dL Beta Globulins (0.60-1.30) g/dL Ur Leukocyte Esterase (Negative) Urine Mucus (None) /hpf Microbiology - Last 24 Hours (Table) 04/20/18 12:10 Blood Culture - Final Blood No Growth after 144 hours 04/23/18 16:11 Urine Culture - Preliminary Urine,Suprapubic Debby albicans Assessment and Plan Plan: Assessment and Recommendations: 1. 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 Mchugh will review when results are back - Continue supportive transfusions when hemoglobin less than 7 Thrombocytopenia: This is mild and remains in a safe range although his baseline platlet count is over 200K - Platlets improving - This is likely secondary to Depakote and continue on leucovorin at this time as a rescue for that. - Other Factors may include prolonged infection and antibiotis plus or minus component of ITP, 2. Debby Infection Suprapuic cath 3. Ecoli and Peseudomona at coccyx wound 4. Hx: of DVT on eliquis, rec continuing 5. Paraplegia Multiple other co-morbidies managed by primary team Physician Attest: I have reviewed above history and physical with dictator, developed the complete impression and plan and agree with above dictation dictated as a scribe.
[2018-04-26] MEDS: guaiFENesin SYRUP 100MG/5ML 200 MG/10 ML CUP PO PRN (20:15)
[2018-04-26] MEDS: DONEPEZIL 5 MG TAB PO SCH (21:21)
[2018-04-26] MEDS: MELATONIN 3 MG TABLET PO SCH (21:21)
[2018-04-26] MEDS: QUEtiapine 50 MG TAB PO SCH (21:21)
[2018-04-26] MEDS: ANIDULAFUNGIN 100 MG in SODIUM CHLORIDE 0.9% 100 ML IVPB SCH (21:22)
--- NOTE | 2018-04-26 21:47 | PN ---
PROGRESS NOTE DATE OF SERVICE: 04/26/2018 REASON FOR FOLLOWUP: Catheter-associated urinary tract infection. INTERVAL HISTORY: The patient is afebrile. He is currently breathing comfortably. Denies having any chest pain or any cough. No nausea, vomiting, abdominal pain or any diarrhea. PHYSICAL EXAMINATION: Blood pressure is 136/82 with a pulse of 54, temperature 98.4. He is 96% on room air. General description is a middle-aged male lying in bed in no distress. RESPIRATORY SYSTEM: Unlabored breathing. Clear to auscultation anteriorly. HEART: S1, S2. Regular rate and rhythm. ABDOMEN: Soft. No tenderness. LABS: Creatinine 0.61. The patient did have repeat UA that was essentially clear. DIAGNOSTIC IMPRESSION AND PLAN: Patient with a catheter-associated urinary tract infection. The patient's suprapubic catheter has been changed. The patient's underlying infection has been adequately treated; repeat UA done this morning is negative. We will recommend to discontinue Eraxis at time of discharge. No need for any antifungal on discharge. MMODL / IJN: [id number] /
[2018-04-27 05:56] LABS: Glucose,Whole Blood 92 mg/dL (75-99)
[2018-04-27 08:10] LABS: Anisocytosis Slight; Basophils % (A) 0 %; Eosinophils # (A) 0.3 k/uL (0-0.7); Eosinophils % (A) 6 %; HCT 26.8 % (39.0-53.0); HGB 8.5 gm/dL (13.0-17.5); Hypochromasia Marked; Lymphocytes # (A) 0.7 k/uL (1.0-4.8); Lymphocytes % (A) 16 %; MCH 28.4 pg (25.0-35.0); MCHC 31.5 g/dL (31.0-37.0); MCV 90.1 fL (80.0-100.0); Mean Platelet Volume 6.3; Monocytes # (A) 0.3 k/uL (0-1.0); Monocytes % (A) 7 %; Neutrophils # (A) 3.1 k/uL (1.3-7.7); Neutrophils % (A) 70 %; Platelet Count 170 k/uL (150-450); Poikilocytosis Slight; RBC 2.98 m/uL (4.30-5.90); WBC 4.5 k/uL (3.8-10.6)
[2018-04-27 08:22] LABS: Anion Gap 1 mmol/L; Blood Urea Nitrogen 6 mg/dL (9-20); Calcium 7.7 mg/dL (8.4-10.2); Carbon Dioxide 30 mmol/L (22-30); Chloride 110 mmol/L (98-107); Glucose 86 mg/dL (74-99); Potassium 3.4 mmol/L (3.5-5.1); Sodium 141 mmol/L (137-145)
[2018-04-27] MEDS: METOPROLOL TARTRATE 12.5 MG TAB PO SCH ×2 (10:25→21:25)
[2018-04-27] MEDS: LACOSAMIDE 50 MG TABLET PO SCH ×2 (10:27→21:24)
[2018-04-27] MEDS: DIVALPROEX 500 MG TABLET.DR PO SCH ×2 (10:31→21:24)
[2018-04-27] MEDS: PANTOPRAZOLE 40 MG TABLET PO SCH (10:31)
[2018-04-27] MEDS: FERROUS SULFATE 325 MG TAB PO SCH ×2 (10:32→21:24)
[2018-04-27] MEDS: amLODIPine 5 MG TAB PO SCH (10:32)
[2018-04-27] MEDS: ASPIRIN 81 MG PO SCH (10:32)
[2018-04-27] MEDS: APIXABAN 5 MG TAB PO SCH ×2 (10:32→21:24)
[2018-04-27] MEDS: LORATADINE 10 MG TAB PO SCH (10:32)
[2018-04-27] MEDS: ASCORBIC ACID 500 MG TAB PO SCH ×2 (10:32→21:24)
[2018-04-27] MEDS: CARBIDOPA-LEVODOPA 10-100 MG 1 EACH TAB PO SCH ×3 (10:32→21:24)
[2018-04-27] MEDS: LEUCOVORIN 5 MG TAB PO SCH (10:33)
[2018-04-27] MEDS: ZINC SULFATE 220 MG CAP PO SCH (10:34)
[2018-04-27] MEDS: COLLAGENASE 250 UNIT/GM OINTMENT 30 GM TUBE TOPICAL SCH (12:09)
[2018-04-27] MEDS: guaiFENesin SYRUP 100MG/5ML 200 MG/10 ML CUP PO PRN ×2 (16:20→22:07)
--- NOTE | 2018-04-27 16:47 | P.PN ---
Subjective Progress Note Date: 04/27/18 Principal diagnosis: Pancytopenia, weakness and hypotension was present with patient patient was awake alert vital signs are currently stable hemoglobin is in the eights, patient would like to go home preferentially tomorrow but at this time my concern is that he bounces back in the hospital within the next week will continue to follow hemoglobin we'll review labs in the morning and make decisions at that time Objective - Vital Signs Vital signs: Vital Signs Temp 98.0 F 04/27/18 15:00 Pulse 54 L 04/27/18 15:00 Resp 12 04/27/18 15:00 BP 129/72 04/27/18 15:00 Pulse Ox 97 04/27/18 15:00 Intake & Output 04/26/18 04/27/18 04/27/18 18:59 06:59 18:59 Intake Total 750 400 Output Total 1700 750 400 Balance -950 -750 0 Weight 97.522 kg Intake: Intake, IV Titration 400 400 Amount Sodium Chloride 0.9% 1, 400 400 000 ml @ 50 mls/hr IV . Q20H [facility] Rx#:[id number] Oral 350 Output: Urine 1700 550 400 Suprapubic 1100 400 Stool 200 Other: Voiding Method Indwelling Catheter Indwelling Catheter - Exam General: [Patient awake, alert and oriented times 3. Patient in no acute distress.] HEENT: [PERRL. EOMI. No pharyngeal erythema or exudate.] Neck: [No adenopathy.] Cardiac: [Heart regular in rate and rhythm. No S3. No S4. No clicks, rubs. No murmur.] Lungs: [Clear to auscultation bilaterally.] Abdomen: [No mass. No organomegaly. Bowel sounds presnt and normoactive in all 4 quadrants.] Large sacral decubitus ulcer which appears to be decreased in size since last hospitalization Extremes: [No edema no cyanosis no claudication normal pulses] paraplegia : [] Musculoskeletal: [No joint erythema, edema or tenderness.] Skin: [No rash.] Neurologic: [No lateralizing deficits. CN II - XII grossly intact.] Lymphatic: [No adenopathy.] - Labs CBC & Chem 7: 04/27/18 07:28 04/27/18 07:28 Labs: Abnormal Lab Results - Last 24 Hours (Table) 04/27/18 04/27/18 Range/Units 07:28 07:28 RBC 2.98 L (4.30-5.90) m/uL Hgb 8.5 L (13.0-17.5) gm/dL Hct 26.8 L (39.0-53.0) % RDW 18.0 H (11.5-15.5) % Lymphocytes # 0.7 L (1.0-4.8) k/uL Potassium 3.4 L (3.5-5.1) mmol/L Chloride 110 H (98-107) mmol/L BUN 6 L (9-20) mg/dL Creatinine 0.63 L (0.66-1.25) mg/dL Calcium 7.7 L (8.4-10.2) mg/dL Microbiology - Last 24 Hours (Table) 04/23/18 16:11 Urine Culture - Final Urine,Suprapubic Debby albicans 04/20/18 12:10 Blood Culture - Final Blood No Growth after 144 hours Assessment and Plan (1) Severe anemia Current Visit: Yes Status: Acute Code(s): D64.9 - ANEMIA, UNSPECIFIED SNOMED Code(s): 841899898 (2) UTI (urinary tract infection) Current Visit: Yes Status: Acute Code(s): N39.0 - URINARY TRACT INFECTION, SITE NOT SPECIFIED SNOMED Code(s): 15478072 (3) Hypotension Current Visit: Yes Status: Acute Code(s): I95.9 - HYPOTENSION, UNSPECIFIED SNOMED Code(s): 98285696 (4) Pancytopenia Current Visit: Yes Status: Acute Priority: High Code(s): D61.818 - OTHER PANCYTOPENIA SNOMED Code(s): 392071456 (5) At risk for readmission to hospital Current Visit: No Status: Acute Code(s): Z91.89 - OTH PERSONAL RISK FACTORS , NOT ELSEWHERE CLASSIFIED SNOMED Code(s): 9672760688016 (6) Osteomyelitis of lumbar spine Current Visit: No Status: Chronic Code(s): M46.26 - OSTEOMYELITIS OF VERTEBRA, LUMBAR REGION SNOMED Code(s): 008434955 (7) Pressure ulcer of coccygeal region, stage 4 Current Visit: No Status: Chronic Code(s): L89.154 - PRESSURE ULCER OF SACRAL REGION, STAGE 4 SNOMED Code(s): 792088079 (8) Paraplegia Current Visit: No Status: Chronic Code(s): G82.20 - PARAPLEGIA, UNSPECIFIED SNOMED Code(s): 73498824 Plan: Pancytopenia has improved Urinary tract infection appears to be resolved if not resolving Hypotension appears to be resolved Sacral decubitus ulcer has improved currently being managed by wound care Currently being treated for Debby in the suprapubic catheter which has been changed Patient in fact appears to be stronger we'll review labs tomorrow continue current plan Time with Patient: Greater than 30
--- NOTE | 2018-04-27 16:53 | P.PN ---
Subjective Progress Note Date: 04/27/18 Principal diagnosis: Pancytopenia Blood counts continue to improve, continue on leucovorin and will plan high dose Folate 2mg po daily at discharge. Objective - Vital Signs Vital signs: Vital Signs Temp 98.0 F 04/27/18 15:00 Pulse 54 L 04/27/18 15:00 Resp 12 04/27/18 15:00 BP 129/72 04/27/18 15:00 Pulse Ox 97 04/27/18 15:00 Intake & Output 04/26/18 04/27/18 04/27/18 18:59 06:59 18:59 Intake Total 750 400 Output Total 1700 750 400 Balance -950 -750 0 Weight 97.522 kg Intake: Intake, IV Titration 400 400 Amount Sodium Chloride 0.9% 1, 400 400 000 ml @ 50 mls/hr IV . Q20H [facility] Rx#:[id number] Oral 350 Output: Urine 1700 550 400 Suprapubic 1100 400 Stool 200 Other: Voiding Method Indwelling Catheter Indwelling Catheter - Exam Constitutional General appearance: Present: average body habitus, cooperative, no acute distress - EENT Eyes: Present: anicteric sclerae, EOMI ENT: Present: hearing grossly normal - Respiratory Respiratory: bilateral: CTA - Cardiovascular Heart sounds: normal: S1, S2 - Gastrointestinal General gastrointestinal: Present: normal bowel sounds, soft - Integumentary Integumentary: Present: pale - Neurologic Neurologic: Present: CNII-XII intact - Musculoskeletal Musculoskeletal: Present: generalized weakness, strength equal bilaterally - Psychiatric Psychiatric: Present: A&O x's 3, appropriate affect, intact judgment & insight - Labs CBC & Chem 7: 04/27/18 07:28 04/27/18 07:28 Labs: Abnormal Lab Results - Last 24 Hours (Table) 04/27/18 04/27/18 Range/Units 07:28 07:28 RBC 2.98 L (4.30-5.90) m/uL Hgb 8.5 L (13.0-17.5) gm/dL Hct 26.8 L (39.0-53.0) % RDW 18.0 H (11.5-15.5) % Lymphocytes # 0.7 L (1.0-4.8) k/uL Potassium 3.4 L (3.5-5.1) mmol/L Chloride 110 H (98-107) mmol/L BUN 6 L (9-20) mg/dL Creatinine 0.63 L (0.66-1.25) mg/dL Calcium 7.7 L (8.4-10.2) mg/dL Microbiology - Last 24 Hours (Table) 04/23/18 16:11 Urine Culture - Final Urine,Suprapubic Debby albicans 04/20/18 12:10 Blood Culture - Final Blood No Growth after 144 hours Assessment and Plan Plan: Assessment and Recommendations: 1. 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 Mchugh will review when results are back - Continue supportive transfusions when hemoglobin less than 7 Thrombocytopenia: This is mild and remains in a safe range although his baseline platlet count is over 200K - Platlets improving - This is likely secondary to Depakote and continue on leucovorin at this time as a rescue for that. - Other Factors may include prolonged infection and antibiotis plus or minus component of ITP, 2. Debby Infection Suprapuic cath 3. Ecoli and Peseudomona at coccyx wound 4. Hx: of DVT on eliquis, rec continuing 5. Paraplegia Multiple other co-morbidies managed by primary team Plan: - Continue Leucovorin during hospitalization - Plan for high dose Folic Acid at discharge 2mg po Daily - Continue to monitor CBC Physician Attest: I have reviewed above history and physical with dictator, developed the complete impression and plan and agree with above dictation dictated as a scribe.
[2018-04-27] MEDS: SODIUM CHLORIDE 0.9% 1,000 ML IV SCH (18:05)
[2018-04-27] MEDS: ANIDULAFUNGIN 100 MG in SODIUM CHLORIDE 0.9% 100 ML IVPB SCH (21:23)
[2018-04-27] MEDS: MELATONIN 3 MG TABLET PO SCH (21:24)
[2018-04-27] MEDS: QUEtiapine 50 MG TAB PO SCH (21:25)
[2018-04-27] MEDS: DONEPEZIL 5 MG TAB PO SCH (21:25)
--- NOTE | 2018-04-27 22:42 | PN ---
PROGRESS NOTE DATE OF SERVICE: 04/27/2018. REASON FOR FOLLOWUP: Debby albicans as well as associated urinary tract infection. INTERVAL HISTORY: The patient is afebrile. The patient is more awake and alert. He is breathing comfortably. Denies having any chest pain or shortness of breath or cough. No abdominal pain or any diarrhea reported by the nursing staff. PHYSICAL EXAMINATION: Blood pressure 129/72 with a pulse of 54, temperature 98. He is 97% on room air. General description is a middle-aged male lying in bed in no distress. RESPIRATORY SYSTEM: Unlabored breathing. Clear to auscultation anteriorly. HEART: S1, S2. Regular rate and rhythm. ABDOMEN: Soft. No tenderness. LABS: Hemoglobin 8.5, white count 4.5, BUN of 6, creatinine 0.63. UA completed yesterday morning is negative. DIAGNOSTIC IMPRESSION AND PLAN: Patient with Debby albicans catheter-associated urinary tract infection. Underlying UTI has been adequately treated. Recommend discontinuing Eraxis on discharge. There is no need for any fungal on outpatient basis. Continue with supportive care. MMODL / IJN: [id number] /
[2018-04-28 09:16] LABS: Anisocytosis Slight; Basophils % (A) 0 %; Eosinophils # (A) 0.3 k/uL (0-0.7); Eosinophils % (A) 6 %; HCT 27.7 % (39.0-53.0); HGB 8.8 gm/dL (13.0-17.5); Hypochromasia Marked; Lymphocytes # (A) 0.6 k/uL (1.0-4.8); Lymphocytes % (A) 13 %; MCH 28.5 pg (25.0-35.0); MCHC 31.9 g/dL (31.0-37.0); MCV 89.3 fL (80.0-100.0); Mean Platelet Volume 6.3; Monocytes # (A) 0.3 k/uL (0-1.0); Monocytes % (A) 6 %; Neutrophils # (A) 3.2 k/uL (1.3-7.7); Neutrophils % (A) 74 %; Platelet Count 194 k/uL (150-450); Poikilocytosis Slight; RBC 3.11 m/uL (4.30-5.90); RDW 17.5 % (11.5-15.5); WBC 4.4 k/uL (3.8-10.6)
[2018-04-28 09:30] LABS: Anion Gap 3 mmol/L; Blood Urea Nitrogen 7 mg/dL (9-20); Calcium 7.6 mg/dL (8.4-10.2); Carbon Dioxide 28 mmol/L (22-30); Chloride 108 mmol/L (98-107); Glucose 109 mg/dL (74-99); Potassium 3.5 mmol/L (3.5-5.1); Sodium 139 mmol/L (137-145)
[2018-04-28] MEDS: FERROUS SULFATE 325 MG TAB PO SCH ×2 (10:27→21:45)
[2018-04-28] MEDS: DIVALPROEX 500 MG TABLET.DR PO SCH ×2 (10:27→21:45)
[2018-04-28] MEDS: guaiFENesin SYRUP 100MG/5ML 200 MG/10 ML CUP PO PRN (10:27)
[2018-04-28] MEDS: APIXABAN 5 MG TAB PO SCH ×2 (10:27→21:45)
[2018-04-28] MEDS: amLODIPine 5 MG TAB PO SCH (10:27)
[2018-04-28] MEDS: ASCORBIC ACID 500 MG TAB PO SCH ×2 (10:28→21:45)
[2018-04-28] MEDS: PANTOPRAZOLE 40 MG TABLET PO SCH (10:28)
[2018-04-28] MEDS: LORATADINE 10 MG TAB PO SCH (10:28)
[2018-04-28] MEDS: LACOSAMIDE 50 MG TABLET PO SCH ×2 (10:28→21:45)
[2018-04-28] MEDS: METOPROLOL TARTRATE 12.5 MG TAB PO SCH ×2 (10:28→21:46)
[2018-04-28] MEDS: ASPIRIN 81 MG PO SCH (10:29)
[2018-04-28] MEDS: CARBIDOPA-LEVODOPA 10-100 MG 1 EACH TAB PO SCH ×3 (10:30→21:45)
[2018-04-28] MEDS: LEUCOVORIN 5 MG TAB PO SCH (10:30)
[2018-04-28] MEDS: ZINC SULFATE 220 MG CAP PO SCH (10:30)
[2018-04-28] MEDS: COLLAGENASE 250 UNIT/GM OINTMENT 30 GM TUBE TOPICAL SCH (10:30)
[2018-04-28 12:05] LABS: Glucose,Whole Blood 120 mg/dL (75-99)
[2018-04-28 12:05] LABS: Glucose,Whole Blood 110 mg/dL (75-99)
--- NOTE | 2018-04-28 15:13 | PN ---
PROGRESS NOTE DATE OF SERVICE: 04/28/2018 REASON FOR FOLLOWUP: Debby albicans catheter-associated urinary tract infection. INTERVAL HISTORY: The patient is currently afebrile. The patient has been breathing comfortably. He denies having any chest pain. He did have some cough, not bringing up any sputum. No nausea. No vomiting. No abdominal pain. No diarrhea. PHYSICAL EXAMINATION: Blood pressure 133/74 with a pulse of 59, temperature 98.3. He is 95% on room air. General description is a middle-aged male lying in bed in no distress. RESPIRATORY SYSTEM: Unlabored breathing. Clear to auscultation anteriorly. HEART: S1, S2. Regular rate and rhythm. ABDOMEN: Soft. No tenderness. LABS: Hemoglobin is 8.8, white count 4.4, BUN of 7, creatinine 0.59. Patient did have a repeat UA done on 04/26/2018 that was negative. DIAGNOSTIC IMPRESSION AND PLAN: 1. Patient with Debby albicans catheter-associated urinary tract infection. The patient's suprapubic catheter has been changed. The patient has been on medication that use of Diflucan, as the patient is treated with Eraxis, which can be discontinued on discharge. 2. Patient with sacral wound, stage III. Local wound care to continue with Santyl. Keep the area off pressure. present at bedside. Questions were answered. MMODL / IJN: [id number] /
[2018-04-28] MEDS ORDERED: BENZONATATE 100 MG CAP PO PRN (17:10)
--- NOTE | 2018-04-28 17:14 | P.PN ---
Subjective Progress Note Date: 04/28/18 Principal diagnosis: Pancytopenia, weakness and hypotension was present with patient patient was awake alert vital signs are currently stable hemoglobin is in the eights, patient would like to go home preferentially tomorrow but at this time my concern is that he bounces back in the hospital within the next week will continue to follow hemoglobin we'll review labs in the morning and make decisions at that time 04/28/2018 Patient's awake alert hemoglobin has been stable will order reticulocyte count to be sure patient's making new red cells will also order Tessalon Perles for cough patient states Robitussin is not helping As long as patient is making new red cells anticipate discharge home the next 24 hours Objective - Vital Signs Vital signs: Vital Signs Temp 98.3 F 04/28/18 14:33 Pulse 59 L 04/28/18 14:33 Resp 18 04/28/18 14:33 BP 133/74 04/28/18 14:33 Pulse Ox 95 04/28/18 14:33 Intake & Output 04/27/18 04/28/18 04/28/18 18:59 06:59 18:59 Intake Total 400 250 Output Total 400 700 600 Balance 0 -450 -600 Intake: Intake, IV Titration 400 250 Amount Anidulafungin 100 mg In 100 Sodium Chloride 0.9% 100 ml @ 84 mls/hr IVPB DAILY @2200 [facility] Rx#:[id number] Sodium Chloride 0.9% 1, 400 150 000 ml @ 50 mls/hr IV . Q20H [facility] Rx#:[id number] Output: Urine 400 500 600 Suprapubic 400 Stool 200 Other: Voiding Method Indwelling Catheter - Exam General: [Patient awake, alert and oriented times 3. Patient in no acute distress.] HEENT: [PERRL. EOMI. No pharyngeal erythema or exudate.] Neck: [No adenopathy.] Cardiac: [Heart regular in rate and rhythm. No S3. No S4. No clicks, rubs. No murmur.] Lungs: [Clear to auscultation bilaterally.] Abdomen: [No mass. No organomegaly. Bowel sounds presnt and normoactive in all 4 quadrants.] Large sacral decubitus ulcer which appears to be decreased in size since last hospitalization Extremes: [No edema no cyanosis no claudication normal pulses] paraplegia : [] Musculoskeletal: [No joint erythema, edema or tenderness.] Skin: [No rash.] Neurologic: [No lateralizing deficits. CN II - XII grossly intact.] Lymphatic: [No adenopathy.] - Labs CBC & Chem 7: 04/28/18 08:02 04/28/18 08:02 Labs: Abnormal Lab Results - Last 24 Hours (Table) 04/28/18 04/28/18 04/28/18 Range/Units 05:53 07:01 08:02 RBC 3.11 L (4.30-5.90) m/uL Hgb 8.8 L (13.0-17.5) gm/dL Hct 27.7 L (39.0-53.0) % RDW 17.5 H (11.5-15.5) % Lymphocytes # 0.6 L (1.0-4.8) k/uL Chloride (98-107) mmol/L BUN (9-20) mg/dL Creatinine (0.66-1.25) mg/dL Glucose (74-99) mg/dL POC Glucose (mg/dL) 120 H 110 H (75-99) mg/dL Calcium (8.4-10.2) mg/dL 04/28/18 Range/Units 08:02 RBC (4.30-5.90) m/uL Hgb (13.0-17.5) gm/dL Hct (39.0-53.0) % RDW (11.5-15.5) % Lymphocytes # (1.0-4.8) k/uL Chloride 108 H (98-107) mmol/L BUN 7 L (9-20) mg/dL Creatinine 0.59 L (0.66-1.25) mg/dL Glucose 109 H (74-99) mg/dL POC Glucose (mg/dL) (75-99) mg/dL Calcium 7.6 L (8.4-10.2) mg/dL Microbiology - Last 24 Hours (Table) 04/23/18 16:11 Urine Culture - Final Urine,Suprapubic Debby albicans Assessment and Plan (1) Severe anemia Current Visit: Yes Status: Acute Code(s): D64.9 - ANEMIA, UNSPECIFIED SNOMED Code(s): 962068411 (2) UTI (urinary tract infection) Current Visit: Yes Status: Acute Code(s): N39.0 - URINARY TRACT INFECTION, SITE NOT SPECIFIED SNOMED Code(s): 23507831 (3) Hypotension Current Visit: Yes Status: Acute Code(s): I95.9 - HYPOTENSION, UNSPECIFIED SNOMED Code(s): 55215806 (4) Pancytopenia Current Visit: Yes Status: Acute Priority: High Code(s): D61.818 - OTHER PANCYTOPENIA SNOMED Code(s): 345742476 (5) At risk for readmission to hospital Current Visit: No Status: Acute Code(s): Z91.89 - OTH PERSONAL RISK FACTORS , NOT ELSEWHERE CLASSIFIED SNOMED Code(s): 5602482338714 (6) Osteomyelitis of lumbar spine Current Visit: No Status: Chronic Code(s): M46.26 - OSTEOMYELITIS OF VERTEBRA, LUMBAR REGION SNOMED Code(s): 296643052 (7) Pressure ulcer of coccygeal region, stage 4 Current Visit: No Status: Chronic Code(s): L89.154 - PRESSURE ULCER OF SACRAL REGION, STAGE 4 SNOMED Code(s): 400561167 (8) Paraplegia Current Visit: No Status: Chronic Code(s): G82.20 - PARAPLEGIA, UNSPECIFIED SNOMED Code(s): 95716006 Plan: Pancytopenia has improved Urinary tract infection appears to be resolved if not resolving Hypotension appears to be resolved Sacral decubitus ulcer has improved currently being managed by wound care Currently being treated for Debby in the suprapubic catheter which has been changed Patient in fact appears to be stronger we'll review labs tomorrow, assessing for reticulocytes Anticipate discharge home tomorrow Time with Patient: Greater than 30
[2018-04-28] MEDS: SODIUM CHLORIDE 0.9% 1,000 ML IV SCH (17:24)
[2018-04-28 17:35] LABS: Reticulocyte % 3.5 % (0.5-2.0)
--- NOTE | 2018-04-28 19:37 | P.PN ---
Subjective Progress Note Date: 04/28/18 Principal diagnosis: Pancytopenia Blood counts continue to improve, continue on leucovorin while hospitalized Objective - Vital Signs Vital signs: Vital Signs Temp 98.3 F 04/28/18 14:33 Pulse 59 L 04/28/18 14:33 Resp 18 04/28/18 14:33 BP 133/74 04/28/18 14:33 Pulse Ox 95 04/28/18 14:33 Intake & Output 04/28/18 04/28/18 04/29/18 06:59 18:59 06:59 Intake Total 250 Output Total 700 600 Balance -450 -600 Intake: Intake, IV Titration 250 Amount Anidulafungin 100 mg In 100 Sodium Chloride 0.9% 100 ml @ 84 mls/hr IVPB DAILY @2200 [facility] Rx#:[id number] Sodium Chloride 0.9% 1, 150 000 ml @ 50 mls/hr IV . Q20H [facility] Rx#:[id number] Output: Urine 500 600 Stool 200 Other: Voiding Method Indwelling Catheter - Exam Constitutional General appearance: Present: average body habitus, cooperative, no acute distress - EENT Eyes: Present: anicteric sclerae, EOMI ENT: Present: hearing grossly normal - Respiratory Respiratory: bilateral: CTA - Cardiovascular Heart sounds: normal: S1, S2 - Gastrointestinal General gastrointestinal: Present: normal bowel sounds, soft - Integumentary Integumentary: Present: pale - Neurologic Neurologic: Present: CNII-XII intact - Musculoskeletal Musculoskeletal: Present: generalized weakness, strength equal bilaterally - Psychiatric Psychiatric: Present: A&O x's 3, appropriate affect, intact judgment & insight - Labs CBC & Chem 7: 04/28/18 08:02 04/28/18 08:02 Labs: Abnormal Lab Results - Last 24 Hours (Table) 04/28/18 04/28/18 04/28/18 Range/Units 05:53 07:01 08:02 RBC 3.11 L (4.30-5.90) m/uL Hgb 8.8 L (13.0-17.5) gm/dL Hct 27.7 L (39.0-53.0) % RDW 17.5 H (11.5-15.5) % Lymphocytes # 0.6 L (1.0-4.8) k/uL Retic Count (0.5-2.0) % Chloride (98-107) mmol/L BUN (9-20) mg/dL Creatinine (0.66-1.25) mg/dL Glucose (74-99) mg/dL POC Glucose (mg/dL) 120 H 110 H (75-99) mg/dL Calcium (8.4-10.2) mg/dL 04/28/18 04/28/18 Range/Units 08:02 08:02 RBC (4.30-5.90) m/uL Hgb (13.0-17.5) gm/dL Hct (39.0-53.0) % RDW (11.5-15.5) % Lymphocytes # (1.0-4.8) k/uL Retic Count 3.5 H (0.5-2.0) % Chloride 108 H (98-107) mmol/L BUN 7 L (9-20) mg/dL Creatinine 0.59 L (0.66-1.25) mg/dL Glucose 109 H (74-99) mg/dL POC Glucose (mg/dL) (75-99) mg/dL Calcium 7.6 L (8.4-10.2) mg/dL Microbiology - Last 24 Hours (Table) 04/23/18 16:11 Urine Culture - Final Urine,Suprapubic Debby albicans Assessment and Plan Plan: Assessment and Recommendations: 1. Pancytopenia: likely result of bone marrow suppression from group home infections, antibiotics, and inflammation Leukopenia: Mild and likely reactive to chronic inflammation, infections, antibiotics - Monitor CBC Daily - Lymphocytopenia improving Normocytic Anemia: - Chronic anemia with a baseline between 9-10 - Today 8.5 - The cause of the rapid decrease is not entirely known - Work-up has been ordered and Dr. Mchugh will review when results are back - Continue supportive transfusions when hemoglobin less than 7 Thrombocytopenia: This is mild and remains in a safe range although his baseline platlet count is over 200K - Platlets improving - This is likely secondary to Depakote and continue on leucovorin at this time as a rescue for that. - Other Factors may include prolonged infection and antibiotis plus or minus component of ITP, 2. Debby Infection Suprapuic cath 3. Ecoli and [place] at coccyx wound 4. Hx: of DVT on eliquis, rec continuing 5. Paraplegia Multiple other co-morbidies managed by primary team Plan: - Continue Leucovorin during hospitalization as his counts continue to show improvement. - Plan for high dose Folic Acid at discharge 2mg po Daily - Continue to monitor CBC Physician Attest: I have reviewed above history and physical with dictator, developed the complete impression and plan and agree with above dictation dictated as a scribe.
[2018-04-28 21:15] VITALS: RESP 16
[2018-04-28] MEDS: ANIDULAFUNGIN 100 MG in SODIUM CHLORIDE 0.9% 100 ML IVPB SCH (21:44)
[2018-04-28] MEDS: MELATONIN 3 MG TABLET PO SCH (21:45)
[2018-04-28] MEDS: QUEtiapine 50 MG TAB PO SCH (21:46)
[2018-04-28] MEDS: DONEPEZIL 5 MG TAB PO SCH (21:46)
[2018-04-29 05:59] LABS: Glucose,Whole Blood 88 mg/dL (75-99)
[2018-04-29 08:06] LABS: Anion Gap 3 mmol/L; Blood Urea Nitrogen 7 mg/dL (9-20); Calcium 7.7 mg/dL (8.4-10.2); Carbon Dioxide 27 mmol/L (22-30); Chloride 110 mmol/L (98-107); Glucose 80 mg/dL (74-99); Potassium 3.7 mmol/L (3.5-5.1); Sodium 140 mmol/L (137-145)
[2018-04-29 08:22] LABS: Anisocytosis Slight; Basophils % (A) 0 %; Eosinophils # (A) 0.4 k/uL (0-0.7); Eosinophils % (A) 7 %; HCT 26.2 % (39.0-53.0); HGB 8.5 gm/dL (13.0-17.5); Hypochromasia Moderate; Lymphocytes # (A) 0.8 k/uL (1.0-4.8); Lymphocytes % (A) 17 %; MCH 28.3 pg (25.0-35.0); MCHC 32.5 g/dL (31.0-37.0); MCV 87.2 fL (80.0-100.0); Mean Platelet Volume 6.8; Monocytes # (A) 0.3 k/uL (0-1.0); Monocytes % (A) 7 %; Neutrophils # (A) 3.3 k/uL (1.3-7.7); Neutrophils % (A) 68 %; Platelet Count 190 k/uL (150-450); Poikilocytosis Slight; RBC 3.01 m/uL (4.30-5.90); RDW 17.3 % (11.5-15.5); WBC 4.9 k/uL (3.8-10.6)
[2018-04-29 10:03] VITALS: BP 160/78; PULSE 58; TEMP 98.7
[2018-04-29] MEDS: METOPROLOL TARTRATE 12.5 MG TAB PO SCH (10:07)
[2018-04-29] MEDS: ASCORBIC ACID 500 MG TAB PO SCH (10:07)
[2018-04-29] MEDS: LORATADINE 10 MG TAB PO SCH (10:08)
[2018-04-29] MEDS: APIXABAN 5 MG TAB PO SCH (10:08)
[2018-04-29] MEDS: CARBIDOPA-LEVODOPA 10-100 MG 1 EACH TAB PO SCH (10:08)
[2018-04-29] MEDS: ASPIRIN 81 MG PO SCH (10:09)
[2018-04-29] MEDS: COLLAGENASE 250 UNIT/GM OINTMENT 30 GM TUBE TOPICAL SCH (10:09)
[2018-04-29] MEDS: amLODIPine 5 MG TAB PO SCH (10:09)
[2018-04-29] MEDS: LEUCOVORIN 5 MG TAB PO SCH (10:09)
[2018-04-29] MEDS: FERROUS SULFATE 325 MG TAB PO SCH (10:09)
[2018-04-29] MEDS: PANTOPRAZOLE 40 MG TABLET PO SCH (10:09)
[2018-04-29] MEDS: DIVALPROEX 500 MG TABLET.DR PO SCH (10:09)
[2018-04-29] MEDS: LACOSAMIDE 50 MG TABLET PO SCH (10:09)
[2018-04-29] MEDS: ZINC SULFATE 220 MG CAP PO SCH (10:09)
[2018-04-29] MEDS: SODIUM CHLORIDE 0.9% 1,000 ML IV SCH (10:12)
[2018-04-29] MEDS: guaiFENesin SYRUP 100MG/5ML 200 MG/10 ML CUP PO PRN (10:18)
--- NOTE | 2018-04-29 11:09 | P.DS ---
Providers Date of admission: 04/23/18 10:42 Expected date of discharge: 04/29/18 Attending physician: Gilmer Lopez Consults: 04/22/18 00:20 Consult Physician Routine Consulting Provider: Mary Anne Hansen Consult Reason/Comments: UTI with hypotension, aiyana in urine Do you want consulting provider notified?: Yes 04/22/18 16:37 Consult Physician Routine Consulting Provider: Roge Landers Consult Reason/Comments: suprapubic cath change Do you want consulting provider notified?: Yes 04/23/18 13:48 Consult Physician Urgent Consulting Provider: Maximiliano Mchugh Consult Reason/Comments: pancytopenia, new Do you want consulting provider notified?: Yes Primary care physician: Gilmer Lopez - Discharge Diagnosis(es) (1) Severe anemia Current Visit: Yes Status: Acute (2) UTI (urinary tract infection) Current Visit: Yes Status: Acute (3) Hypotension Current Visit: Yes Status: Acute (4) Pancytopenia Current Visit: Yes Status: Acute Priority: High (5) At risk for readmission to hospital Current Visit: No Status: Acute (6) Osteomyelitis of lumbar spine Current Visit: No Status: Chronic (7) Pressure ulcer of coccygeal region, stage 4 Current Visit: No Status: Chronic (8) Paraplegia Current Visit: No Status: Chronic Hospital Course: Patient presented to hospital with evidence of urinary tract infection was with hypotension, elevated white count chronic anemia The patient was started on antibiotics culture of urine and wound were performed Appropriate antibiotic therapy was startedGeneral: [Patient awake, alert and oriented times 3. Patient in no acute distress.] HEENT: [PERRL. EOMI. No pharyngeal erythema or exudate.] Neck: [No adenopathy.] Cardiac: [Heart regular in rate and rhythm. No S3. No S4. No clicks, rubs. No murmur.] Lungs: [Clear to auscultation bilaterally.] Abdomen: [No mass. No organomegaly. Bowel sounds presnt and normoactive in all 4 quadrants.] Extremes: [No edema no cyanosis no claudication normal pulses] : [] Musculoskeletal: [No joint erythema, edema or tenderness.] Skin: [No rash.] Neurologic: [No lateralizing deficits. CN II - XII grossly intact.] Paraplegia , sacral decubitus ulcer Lymphatic: [No adenopathy.] Patient Condition at Discharge: Stable Plan - Discharge Summary Discharge Rx Participant: Yes New Discharge Prescriptions: No Action HYDROcodone/APAP 7.5-325MG [Ganado 7.5-325] 1 tab PO Q6HR PRN PRN Reason: Pain Apixaban [Eliquis] 5 mg PO BID Pantoprazole Sodium 40 mg PO DAILY levETIRAcetam [Keppra] 750 mg PO BID #60 tab Lacosamide [Vimpat] 100 mg PO BID QUEtiapine [SEROquel] 50 mg PO HS #30 tab Cetirizine HCl [Zyrtec] 10 mg PO DAILY Metoprolol Tartrate [Lopressor] 12.5 mg PO BID Lisinopril [Prinivil] 5 mg PO DAILY Aspirin EC [Ecotrin Low Dose] 81 mg PO DAILY amLODIPine [Norvasc] 5 mg PO DAILY Acetaminophen [Tylenol Extra Strength] 1,000 mg PO Q6HR PRN PRN Reason: Pain Ferrous Sulfate [Feosol] 325 mg PO BID Divalproex Sodium [Depakote] 500 mg PO BID Carbidopa-Levodopa 10-100 mg [Sinemet 10-100] 1 each PO TID Ascorbic Acid [Vitamin C] 500 mg PO BID Zinc Sulfate [Orazinc] 220 mg PO DAILY Donepezil [Aricept] 5 mg PO HS Melatonin 3 mg PO HS Discharge Medication List Apixaban [Eliquis] 5 mg PO BID 07/27/17 [History] HYDROcodone/APAP 7.5-325MG [Ganado 7.5-325] 1 tab PO Q6HR PRN 07/27/17 [History] Pantoprazole Sodium 40 mg PO DAILY 10/03/17 [History] levETIRAcetam [Keppra] 750 mg PO BID #60 tab 02/17/18 [Rx] Lacosamide [Vimpat] 100 mg PO BID 03/07/18 [History] QUEtiapine [SEROquel] 50 mg PO HS #30 tab 03/10/18 [Rx] Acetaminophen [Tylenol Extra Strength] 1,000 mg PO Q6HR PRN 03/16/18 [History] Aspirin EC [Ecotrin Low Dose] 81 mg PO DAILY 03/16/18 [History] Cetirizine HCl [Zyrtec] 10 mg PO DAILY 03/16/18 [History] Ferrous Sulfate [Feosol] 325 mg PO BID 03/16/18 [History] Lisinopril [Prinivil] 5 mg PO DAILY 03/16/18 [History] Metoprolol Tartrate [Lopressor] 12.5 mg PO BID 03/16/18 [History] amLODIPine [Norvasc] 5 mg PO DAILY 03/16/18 [History] Ascorbic Acid [Vitamin C] 500 mg PO BID 04/06/18 [History] Carbidopa-Levodopa 10-100 mg [Sinemet 10-100] 1 each PO TID 04/06/18 [History] Divalproex Sodium [Depakote] 500 mg PO BID 04/06/18 [History] Donepezil [Aricept] 5 mg PO HS 04/06/18 [History] Melatonin 3 mg PO HS 04/06/18 [History] Zinc Sulfate [Orazinc] 220 mg PO DAILY 04/06/18 [History] Follow up Appointment(s)/Referral(s): [facility], [NON-STAFF] - As Needed Gilmer Lopez MD [Primary Care Provider] - 1-2 days Activity/Diet/Wound Care/Special Instructions: Will discharge patient home tomorrow morning Discharge Disposition: HOME WITH HOME HEALTH SERVICES
== END 2018-04-29 14:35 | disposition home health service (06) | DRG 727 ==
LOC: EC 11:37 → 4SSUR 14:37 → OBSVTOIN 04-23 10:42
PROVIDERS: ADMIT Family Medicine; ATTEND Family Medicine
PROC: 30233N1 Transfusion of Nonautologous Red Blood Cells into Peripheral Vein, Percutaneous Approach (ICD-10-PCS; principal; 2018-04-23)
DX: B37.49 Other urogenital candidiasis (principal); L89.154 Pressure ulcer of sacral region, stage 4; D61.818 Other pancytopenia; G82.20 Paraplegia, unspecified; M46.26 Osteomyelitis of vertebra, lumbar region; E11.69 Type 2 diabetes mellitus with other specified complication; I95.9 Hypotension, unspecified; E11.42 Type 2 diabetes mellitus with diabetic polyneuropathy; D69.6 Thrombocytopenia, unspecified; L89.622 Pressure ulcer of left heel, stage 2; N31.9 Neuromuscular dysfunction of bladder, unspecified; G31.83 Neurocognitive disorder with Lewy bodies; E78.5 Hyperlipidemia, unspecified; E86.0 Dehydration; G40.909 Epilepsy, unspecified, not intractable, without status epilepticus; I10 Essential (primary) hypertension; K21.9 Gastro-esophageal reflux disease without esophagitis; Q54.9 Hypospadias, unspecified; F32.9 Major depressive disorder, single episode, unspecified; F41.9 Anxiety disorder, unspecified; N42.9 Disorder of prostate, unspecified; B96.20 Unspecified Escherichia coli [E. coli] as the cause of diseases classified elsewhere; B96.5 Pseudomonas (aeruginosa) (mallei) (pseudomallei) as the cause of diseases classified elsewhere; G47.00 Insomnia, unspecified; D72.810 Lymphocytopenia; Z79.01 Long term (current) use of anticoagulants; Z79.82 Long term (current) use of aspirin; Z79.899 Other long term (current) drug therapy; Z95.1 Presence of aortocoronary bypass graft; Z93.3 Colostomy status; Z87.891 Personal history of nicotine dependence; Z86.718 Personal history of other venous thrombosis and embolism; Z86.14 Personal history of Methicillin resistant Staphylococcus aureus infection; Z82.5 Family history of asthma and other chronic lower respiratory diseases
CPT/HCPCS: 36415; 71046; 80048; 80053; 81001; 82607; 82728; 82746; 82784; 83036; 83540; 83550; 83605; 83615; 83883; 83921; 84165; 85025; 85045; 85610; 85730; 86334; 86850; 86900; 86901; 86920; 87040; 87086; 87502; 96361; 96365; 99285

== ENCOUNTER 2018-05-15 10:30 | Emergency (ER) | payer BC ==
[2018-05-15 10:37] VITALS: RESP 18
--- NOTE | 2018-05-15 11:50 | ED ---
Recheck HPI - General Chief Complaint: Recheck/Abnormal Lab/Rx Stated Complaint: peg tube removed Time Seen by Provider: 05/15/18 10:59 Source: patient, family, EMS, RN notes reviewed, old records reviewed Mode of arrival: EMS Limitations: no limitations - History of Present Illness Initial Comments: Patient is 62-year-old male who presents emergency department today with complaints of PEG tube falling out on Tuesday. Patient reports that he's had this PEG tube since January. Patient reports that he does not use that within the past 2 months as he does not need that. 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 He's had multiple infections within the past few months and was recently discharged from hospital. He has no other complaints at this time. Patient states that he is concerned that his PEG tube site may become infected. He is currently on 3 antibiotics for urinary tract infections and pneumonia. Patient states that the PEG tube site has already closed over. Visiting nurse was contacted and referred the Patient to come to the ER. Patient is here with his . They deny any other complaints at this time. - Related Data Home Medications Medication Instructions Recorded Confirmed Apixaban [Eliquis] 5 mg PO BID 07/27/17 05/15/18 Lacosamide [Vimpat] 100 mg PO BID 03/07/18 05/15/18 Aspirin EC [Ecotrin Low Dose] 81 mg PO DAILY 03/16/18 05/15/18 Ferrous Sulfate [Feosol] 325 mg PO BID 03/16/18 05/15/18 Lisinopril [Prinivil] 5 mg PO DAILY 03/16/18 05/15/18 Metoprolol Tartrate [Lopressor] 12.5 mg PO BID 03/16/18 05/15/18 amLODIPine [Norvasc] 5 mg PO DAILY 03/16/18 05/15/18 Carbidopa-Levodopa 10-100 mg 1 tab PO TID 04/06/18 05/15/18 [Sinemet 10-100] Divalproex Sodium [Depakote] 500 mg PO BID 04/06/18 05/15/18 Donepezil [Aricept] 5 mg PO HS 04/06/18 05/15/18 Melatonin 3 mg PO HS 04/06/18 05/15/18 Folic Acid 0.4 mg PO DAILY 05/15/18 05/15/18 Levofloxacin [Levaquin] 500 mg PO DAILY 05/15/18 05/15/18 Zinc 50 mg PO DAILY 05/15/18 05/15/18 Previous Rx's Medication Instructions Recorded levETIRAcetam [Keppra] 750 mg PO BID #60 tab 02/17/18 Allergies Allergy/AdvReac Type Severity Reaction Status Date / Time No Known Allergies Allergy Verified 05/15/18 11:11 Review of Systems ROS Statement: Those systems with pertinent positive or pertinent negative responses have been documented in the HPI. ROS Other: All systems not noted in ROS Statement are negative. Past Medical History Past Medical History: Dementia, Diabetes Mellitus, Deep Vein Thrombosis (DVT), GERD/Reflux, Hyperlipidemia, Hypertension, Prostate Disorder, Seizure Disorder Additional Past Medical History / Comment(s): Spouse states pt has pulled out IV s and other equipment and has thrown himself out of bed in the past-recommends side rails be up at all times, DVT B/L LE, insomnia, osteomeylitis- coccyx wound has had hyerbaric tx and wound vac in the past- goes to [facility] every , colostomy d/t coccyx wound, uti's, guillain barre syndrome, neurogenic bladder has suprapubic cath-last changed 04-11-18, paraplegia SINCE LAMINECTOMY FEB 15, 2017-PARALIZED WAIST DOWN, abd hernia, per pt has peg tube but is now able to eat, limited ROM with neck, NIDDM now diet controlled/possible bilateral foot neuropathy. stated "that the dementia pt has also has parkinson like symptoms". History of Any Multi-Drug Resistant Organisms: MRSA, VRE Date of last positivie culture/infection: 01/12/18 MRSA; 07/28/17 VRE MDRO Source:: Hip-MRSA & VRE Past Surgical History: Back Surgery, Bowel Resection, Coronary Bypass/CABG, Heart Catheterization Additional Past Surgical History / Comment(s): LAMINECTOMY 02/15/17-has had total of 4 sx, 2016 CABG-5 vessel, piccs-none now, COLONOSCOPY, COLOSTOMY(was done d/t non healing coccyx wound. Supra PUBIC CATH (changed last 03-14-18), picc lines-since removed, peg tube. PICC Line Past Anesthesia/Blood Transfusion Reactions: Previous Problems w/ Anesthesia Additional Past Anesthesia/Blood Transfusion Reaction / Comment(s): when pt had 2 sx within a short time from each other ,he had diffiuclty waking up. Past blood transfusion-no reaction Past Psychological History: Anxiety, Depression Smoking Status: Former smoker Past Alcohol Use History: None Reported Past Drug Use History: None Reported - Past Family History Brother(s) Family Medical History: Cancer Mother Additional Family Medical History / Comment(s): emphysema Father Additional Family Medical History / Comment(s): emphysema General Exam - General Exam Comments Initial Comments: 62-year-old male. Alert and oriented 3. No acute distress. Limitations: no limitations General appearance: alert, in no apparent distress Head exam: Present: atraumatic, normocephalic, normal inspection Eye exam: Present: normal appearance, PERRL, EOMI. Absent: scleral icterus, conjunctival injection, periorbital swelling ENT exam: Present: normal exam, mucous membranes moist Neck exam: Present: normal inspection. Absent: tenderness, meningismus, lymphadenopathy Respiratory exam: Present: normal lung sounds bilaterally. Absent: respiratory distress, wheezes, rales, rhonchi, stridor Cardiovascular Exam: Present: regular rate, normal rhythm, normal heart sounds. Absent: systolic murmur, diastolic murmur, rubs, gallop, clicks GI/Abdominal exam: Present: soft, normal bowel sounds, other (Evidence of colostomy site. Patient's PEG tube site is closed over at this time and scabbed. No evidence of surrounding erythema or drainage.). Absent: distended, tenderness, guarding, rebound, rigid Extremities exam: Present: normal inspection, full ROM, normal capillary refill. Absent: tenderness, pedal edema, joint swelling, calf tenderness Back exam: Present: normal inspection Neurological exam: Present: alert, oriented X3, CN II-XII intact Psychiatric exam: Present: normal affect, normal mood Course Vital Signs 05/15/18 10:33 Temperature 96.9 F L Pulse Rate 50 L Respiratory 18 Rate Blood Pressure 119/69 O2 Sat by Pulse 96 Oximetry Medical Decision Making - Medical Decision Making 62-year-old male presents for evaluation after his PEG tube was removed on Tuesday. The site of the PEG tube opening is 30 closed over at this time. There is no surrounding erythema or drainage. It does not appear to be infected. It was patient's main concern. Patient denies any other complaints at this time. I discussed applying antibiotic ointment over the skin and putting a clean dressing over the area. Discussed that they can follow-up with her primary care physician. They do not use the PEG tube at this time. Discussed that he was to need a PEG tube for any further reason it would be a 16-[place] size. He has been tolerating by mouth and has not used this PEG tube in over month. I discussed close follow-up and return parameters. Patient be discharged back home via EMS. Patient is bedbound. Disposition Clinical Impression: Encounter for care related to feeding tube Disposition: HOME SELF-CARE Condition: Good Instructions (If sedation given, give patient instructions): Acute Wound Care (ED) Additional Instructions: Patient advised to apply antibiotic ointment over the scabbed area and a clean dressing over the site. Patient should have follow-up with her primary care physician. Return to the emergency department if any alarming signs or symptoms occur. Is patient prescribed a controlled substance at d/c from ED?: No Referrals: Gilmer Lopez MD [Primary Care Provider] - 1-2 days Time of Disposition: 11:50
[2018-05-15 12:09] VITALS: BP 127/67; PULSE 51; TEMP 97.6
== END 2018-05-15 12:05 | disposition home or self-care (01) ==
LOC: EC 10:30
DX: Z43.1 Encounter for attention to gastrostomy (principal); F03.90 Unspecified dementia, unspecified severity, without behavioral disturbance, psychotic disturbance, mood disturbance, and anxiety; K21.9 Gastro-esophageal reflux disease without esophagitis; I10 Essential (primary) hypertension; G40.909 Epilepsy, unspecified, not intractable, without status epilepticus; F32.9 Major depressive disorder, single episode, unspecified; F41.9 Anxiety disorder, unspecified; Z86.14 Personal history of Methicillin resistant Staphylococcus aureus infection; Z87.891 Personal history of nicotine dependence; Z86.718 Personal history of other venous thrombosis and embolism; Z79.82 Long term (current) use of aspirin; Z79.899 Other long term (current) drug therapy; Z79.01 Long term (current) use of anticoagulants; Z95.1 Presence of aortocoronary bypass graft; Z95.818 Presence of other cardiac implants and grafts
CPT/HCPCS: 99284

== ENCOUNTER 2018-05-25 10:34 | Emergency (ER) | payer BC ==
[2018-05-25 10:42] VITALS: RESP 18
[2018-05-25] MEDS ORDERED: SODIUM CHLORIDE 0.9% 500 ML 500 ML IV STA (11:22)
[2018-05-25 11:58] LABS: Partial Thromboplastin Time 27.3 sec (22.0-30.0); Prothrombin Time 11.1 sec (9.0-12.0)
[2018-05-25 12:06] LABS: ALT 22 U/L (21-72); AST 18 U/L (17-59); Albumin 2.4 g/dL (3.5-5.0); Alkaline Phosphatase 63 U/L (38-126); Anion Gap 4 mmol/L; Blood Urea Nitrogen 22 mg/dL (9-20); Calcium 8.4 mg/dL (8.4-10.2); Carbon Dioxide 27 mmol/L (22-30); Chloride 112 mmol/L (98-107); Glucose 100 mg/dL (74-99); Sodium 143 mmol/L (137-145); Total Bilirubin 0.3 mg/dL (0.2-1.3); Total Protein 5.5 g/dL (6.3-8.2)
[2018-05-25 12:10] LABS: Anisocytosis Slight; Basophils % (A) 1 %; Eosinophils # (A) 0.4 k/uL (0-0.7); Eosinophils % (A) 7 %; HGB 9.9 gm/dL (13.0-17.5); Hypochromasia Moderate; Lymphocytes # (A) 0.9 k/uL (1.0-4.8); Lymphocytes % (A) 19 %; MCH 28.8 pg (25.0-35.0); MCHC 31.9 g/dL (31.0-37.0); MCV 90.1 fL (80.0-100.0); Mean Platelet Volume 6.6; Monocytes # (A) 0.3 k/uL (0-1.0); Monocytes % (A) 6 %; Neutrophils # (A) 3.2 k/uL (1.3-7.7); Neutrophils % (A) 66 %; Platelet Count 199 k/uL (150-450); RBC 3.44 m/uL (4.30-5.90); RDW 16.2 % (11.5-15.5); WBC 4.8 k/uL (3.8-10.6)
--- NOTE | 2018-05-25 12:14 | XR ---
EXAMINATION TYPE: XR chest 2V DATE OF EXAM: 05/25/2018 COMPARISON: 04/20/2018 HISTORY: Hypotension and fever TECHNIQUE: Frontal and lateral views of the chest are obtained. FINDINGS: There is no focal air space opacity, pleural effusion, or pneumothorax seen. The cardiac silhouette size is enlarged with post CABG changes. The osseous structures are intact. IMPRESSION: No acute cardiopulmonary process.
[2018-05-25 12:18] LABS: Potassium 4.1 mmol/L (3.5-5.1)
[2018-05-25 12:44] LABS: Appearance,Urine Turbid (Clear); Bacteria,Urine Moderate /hpf; Bilirubin,Urine Negative (Negative); Blood,Urine Small (Negative); Color,Urine Yellow; Glucose,Urine (UA) Negative (Negative); Ketones,Urine Negative (Negative); Leukocyte Esterase,Urine Large (Negative); Mucus,Urine Rare /hpf; Nitrite,Urine Positive (Negative); Protein,Urine 1+ (Negative); RBC,Urine 7 /hpf (0-5); Specific Gravity,Urine 1.018 (1.001-1.035); Urobilinogen,Urine <2.0 mg/dL (<2.0); WBC,Urine >182 /hpf (0-5)
[2018-05-25] MEDS ORDERED: cefTRIAXone IN SWFI 1,000 MG/10 ML SYRINGE IVP STA (13:02)
--- NOTE | 2018-05-25 13:07 | ED ---
General Adult HPI - General Chief complaint: Recheck/Abnormal Lab/Rx Stated complaint: Hypotension Time Seen by Provider: 05/25/18 10:58 Source: patient, EMS, RN notes reviewed Mode of arrival: EMS Limitations: physical limitation - History of Present Illness Initial comments: 62-year-old male with complicated past medical history including paraplegia, hyperlipidemia, hypertension, CABG presents to the emergency department for a chief complaint of hypotension. Patient was seen at wound care clinic for a wound on his tailbone earlier today. He was in the ambulance on the way back when he was found to be hypotensive with a blood pressure of 78/40 and a heart rate in the 40s. Patient denies any complaints but does admit that he is feeling somewhat tired than normal. He has felt similar when he had an anemic episode in the past. Patient has a suprapubic catheter and was told that he is prone to getting urinary tract infections. Patient denies any fevers or chills. Patient states his wound is healing well and is down from about 10 cm x 10 cm to the size of a nickel.Patient has no other complaints at this time including shortness of breath, chest pain, abdominal pain, nausea or vomiting, headache, or visual changes. - Related Data Home Medications Medication Instructions Recorded Confirmed Apixaban [Eliquis] 5 mg PO BID 07/27/17 05/25/18 Lacosamide [Vimpat] 100 mg PO BID 03/07/18 05/25/18 Aspirin EC [Ecotrin Low Dose] 81 mg PO DAILY 03/16/18 05/25/18 Ferrous Sulfate [Feosol] 325 mg PO BID 03/16/18 05/25/18 Metoprolol Tartrate [Lopressor] 12.5 mg PO BID 03/16/18 05/25/18 amLODIPine [Norvasc] 5 mg PO DAILY 03/16/18 05/25/18 Carbidopa-Levodopa 10-100 mg 0.5 tab PO TID 04/06/18 05/25/18 [Sinemet 10-100] Divalproex Sodium [Depakote] 500 mg PO BID 04/06/18 05/25/18 Donepezil [Aricept] 5 mg PO HS 04/06/18 05/25/18 Melatonin 3 mg PO HS 04/06/18 05/25/18 Folic Acid 0.4 mg PO DAILY 05/15/18 05/25/18 Levofloxacin [Levaquin] 500 mg PO DAILY 05/15/18 05/25/18 Zinc 50 mg PO DAILY 05/15/18 05/25/18 Gabapentin [Neurontin] 100 mg PO TID 05/25/18 05/25/18 Methocarbamol [Robaxin] 750 mg PO Q6H PRN 05/25/18 05/25/18 Previous Rx's Medication Instructions Recorded levETIRAcetam [Keppra] 750 mg PO BID #60 tab 02/17/18 Sulfamethox-Tmp 800-160Mg [Bactrim 1 tab PO Q12HR #14 tab 05/25/18 DS 800-160 mg] Allergies Allergy/AdvReac Type Severity Reaction Status Date / Time No Known Allergies Allergy Verified 05/25/18 11:50 Review of Systems ROS Statement: Those systems with pertinent positive or pertinent negative responses have been documented in the HPI. ROS Other: All systems not noted in ROS Statement are negative. Past Medical History Past Medical History: Dementia, Diabetes Mellitus, Deep Vein Thrombosis (DVT), GERD/Reflux, Hyperlipidemia, Hypertension, Prostate Disorder, Seizure Disorder Additional Past Medical History / Comment(s): Spouse states pt has pulled out IVs and other equipment and has thrown himself out of bed in the past-recommends side rails be up at all times, DVT B/L LE, insomnia, osteomeylitis- coccyx wound has had hyerbaric tx and wound vac in the past- goes to [facility] every , colostomy d/t coccyx wound, uti's, guillain barre syndrome, neurogenic bladder has suprapubic cath-last changed 04-11-18, paraplegia SINCE LAMINECTOMY FEB 15, 2017-PARALIZED WAIST DOWN, abd hernia, per pt has peg tube but is now able to eat, limited ROM with neck, NIDDM now diet controlled/possible bilateral foot neuropathy. stated "that the dementia pt has also has parkinson like symptoms". History of Any Multi-Drug Resistant Organisms: MRSA, VRE Date of last positivie culture/infection: 01/12/18 MRSA; 07/28/17 VRE MDRO Source:: Hip-MRSA & VRE Past Surgical History: Back Surgery, Bowel Resection, Coronary Bypass/CABG, Heart Catheterization Additional Past Surgical History / Comment(s): LAMINECTOMY 02/15/17-has had total of 4 sx, 2016 CABG-5 vessel, piccs-none now, COLONOSCOPY, COLOSTOMY(was done d/t non healing coccyx wound. Supra PUBIC CATH (changed last 03-14-18), picc lines-since removed, peg tube. PICC Line Past Anesthesia/Blood Transfusion Reactions: Previous Problems w/ Anesthesia Additional Past Anesthesia/Blood Transfusion Reaction / Comment(s): when pt had 2 sx within a short time from each other ,he had diffiuclty waking up. Past blo od transfusion-no reaction Past Psychological History: Anxiety, Depression Smoking Status: Never smoker Past Alcohol Use History: None Reported Past Drug Use History: None Reported - Past Family History Brother(s) Family Medical History: Cancer Mother Additional Family Medical History / Comment(s): emphysema Father Additional Family Medical History / Comment(s): emphysema General Exam Limitations: physical limitation General appearance: alert, in no apparent distress Head exam: Present: atraumatic, normocephalic, normal inspection Eye exam: Present: normal appearance, PERRL, EOMI. Absent: scleral icterus, conjunctival injection, periorbital swelling ENT exam: Present: normal exam, mucous membranes moist Neck exam: Present: normal inspection, full ROM. Absent: tenderness, meningismus, lymphadenopathy Respiratory exam: Present: normal lung sounds bilaterally. Absent: respiratory distress, wheezes, rales, rhonchi, stridor Cardiovascular Exam: Present: regular rate, normal rhythm, normal heart sounds. Absent: systolic murmur, diastolic murmur, rubs, gallop, clicks GI/Abdominal exam: Present: soft, normal bowel sounds. Absent: distended, tenderness, guarding, rebound, rigid exam: Present: other (suprapubic catheter) Neurological exam: Present: alert, oriented X3, CN II-XII intact Psychiatric exam: Present: normal affect, normal mood Course Vital Signs 05/25/18 05/25/18 05/25/18 10:36 10:40 11:00 Temperature 97.5 F L Pulse Rate 47 L 47 L Respiratory 18 Rate Blood Pressure 126/65 126/65 115/60 O2 Sat by Pulse 99 99 99 Oximetry 05/25/18 05/25/18 05/25/18 11:10 11:20 11:40 Temperature Pulse Rate 47 L 46 L 45 L Respiratory Rate Blood Pressure 114/63 121/66 107/62 O2 Sat by Pulse 100 98 98 Oximetry 05/25/18 05/25/18 05/25/18 12:00 12:20 12:40 Temperature Pulse Rate 46 L 46 L Respiratory Rate Blood Pressure 117/56 130/61 122/60 O2 Sat by Pulse 98 100 Oximetry 05/25/18 05/25/18 12:50 13:10 Temperature Pulse Rate 49 L 45 L Respiratory Rate Blood Pressure 138/58 148/66 O2 Sat by Pulse 100 99 Oximetry EKG Findings - EKG Comments: EKG Findings:: Sinus bradycardia with a ventricular rate of 46, MT interval 156, QTc 427, no ST elevation or depression Medical Decision Making - Medical Decision Making 62-year-old male with a complicated past medical history presents to the emergency department for a chief complaint of hypotension and bradycardia. This was asymptomatic the patient was brought in by EMS. Patient does have a heart rate in the mid to high 40s. On review of previous charts patient's heart rate is often in the low 50s. Patient was also hypotensive according to EMS. However patient has been normotensive throughout his stay here in the emergency department. Patient was given fluids and lab work was obtained. CBC is unremar kable. Hemoglobin is 9.9 which is higher than patient's previous lab work. CMP is unremarkable. Urine does show evidence of infection. However patient does have a suprapubic catheter. This will be cultured. Troponin negative, EKG unremarkable besides for sinus bradycardia. At this time Dr. Burgos discussed case with Dr. Lopez patient's primary care doctor in depth. Dr. Lopez recommends outpatient follow-up as patient has home nurses that can monitor his vitals. Patient will be treated with Bactrim however was given a dose of Rocephin here in the emergency department. Vitals stable on discharge besides for bradycardia, with an improved rate of 51. - Lab Data Result diagrams: 05/25/18 11:36 05/25/18 11:36 Lab Results 05/25/18 05/25/18 05/25/18 Range/Units 11:36 11:36 11:36 WBC 4.8 (3.8-10.6) k/uL RBC 3.44 L (4.30-5.90) m/uL Hgb 9.9 L (13.0-17.5) gm/dL Hct 31.0 L (39.0-53.0) % MCV 90.1 (80.0-100.0) fL MCH 28.8 (25.0-35.0) pg MCHC 31.9 (31.0-37.0) g/dL RDW 16.2 H (11.5-15.5) % Plt Count 199 (150-450) k/uL Neutrophils % 66 % Lymphocytes % 19 % Monocytes % 6 % Eosinophils % 7 % Basophils % 1 % Neutrophils # 3.2 (1.3-7.7) k/uL Lymphocytes # 0.9 L (1.0-4.8) k/uL Monocytes # 0.3 (0-1.0) k/uL Eosinophils # 0.4 (0-0.7) k/uL Basophils # 0.0 (0-0.2) k/uL Hypochromasia Moderate Anisocytosis Slight PT (9.0-12.0) sec INR (<1.2) APTT (22.0-30.0) sec Sodium 143 (137-145) mmol/L Potassium 4.1 (3.5-5.1) mmol/L Chloride 112 H (98-107) mmol/L Carbon Dioxide 27 (22-30) mmol/L Anion Gap 4 mmol/L BUN 22 H (9-20) mg/dL Creatinine 0.60 L (0.66-1.25) mg/dL Est GFR (CKD-EPI)AfAm >90 (>60 ml/min/1.73 sqM) Est GFR (CKD-EPI)NonAf >90 (>60 ml/min/1.73 sqM) Glucose 100 H (74-99) mg/dL Plasma Lactic Acid Stanley 0.8 (0.7-2.0) mmol/L Calcium 8.4 (8.4-10.2) mg/dL Total Bilirubin 0.3 (0.2-1.3) mg/dL AST 18 (17-59) U/L ALT 22 (21-72) U/L Alkaline Phosphatase 63 (38-126) U/L Troponin I (0.000-0.034) ng/mL Total Protein 5.5 L (6.3-8.2) g/dL Albumin 2.4 L (3.5-5.0) g/dL Urine Color Urine Appearance (Clear) Urine pH (5.0-8.0) Ur Specific [place] (1.001-1.035) Urine Protein (Negative) Urine Glucose (UA) (Negative) Urine Ketones (Negative) Urine Blood (Negative) Urine Nitrite (Negative) Urine Bilirubin (Negative) Urine Urobilinogen (<2.0) mg/dL Ur Leukocyte Esterase (Negative) Urine RBC (0-5) /hpf Urine WBC (0-5) /hpf Urine WBC Clumps (None) /hpf Urine Bacteria (None) /hpf Urine Mucus (None) /hpf 05/25/18 05/25/18 05/25/18 Range/Units 11:36 11:36 12:00 WBC (3.8-10.6) k/uL RBC (4.30-5.90) m/uL Hgb (13.0-17.5) gm/dL Hct (39.0-53.0) % MCV (80.0-100.0) fL MCH (25.0-35.0) pg MCHC (31.0-37.0) g/dL RDW (11.5-15.5) % Plt Count (150-450) k/uL Neutrophils % % Lymphocytes % % Monocytes % % Eosinophils % % Basophils % % Neutrophils # (1.3-7.7) k/uL Lymphocytes # (1.0-4.8) k/uL Monocytes # (0-1.0) k/uL Eosinophils # (0-0.7) k/uL Basophils # (0-0.2) k/uL Hypochromasia Anisocytosis PT 11.1 (9.0-12.0) sec INR 1.0 (<1.2) APTT 27.3 (22.0-30.0) sec Sodium (137-145) mmol/L Potassium (3.5-5.1) mmol/L Chloride (98-107) mmol/L Carbon Dioxide (22-30) mmol/L Anion Gap mmol/L BUN (9-20) mg/dL Creatinine (0.66-1.25) mg/dL Est GFR (CKD-EPI)AfAm (>60 ml/min/1.73 sqM) Est GFR (CKD-EPI)NonAf (>60 ml/min/1.73 sqM) Glucose (74-99) mg/dL Plasma Lactic Acid Stanley (0.7-2.0) mmol/L Calcium (8.4-10.2) mg/dL Total Bilirubin (0.2-1.3) mg/dL AST (17-59) U/L ALT (21-72) U/L Alkaline Phosphatase (38-126) U/L Troponin I <0.012 (0.000-0.034) ng/mL Total Protein (6.3-8.2) g/dL Albumin (3.5-5.0) g/dL Urine Color Yellow Urine Appearance Turbid (Clear) Urine pH 6.0 (5.0-8.0) Ur Specific [place] 1.018 (1.001-1.035) Urine Protein 1+ H (Negative) Urine Glucose (UA) Negative (Negative) Urine Ketones Negative (Negative) Urine Blood Small H (Negative) Urine Nitrite Positive (Negative) Urine Bilirubin Negative (Negative) Urine Urobilinogen <2.0 (<2.0) mg/dL Ur Leukocyte Esterase Large H (Negative) Urine RBC 7 H (0-5) /hpf Urine WBC >182 H (0-5) /hpf Urine WBC Clumps Few H (None) /hpf Urine Bacteria Moderate H (None) /hpf Urine Mucus Rare H (None) /hpf Disposition Clinical Impression: Bradycardia, Urinary tract infection Disposition: HOME SELF-CARE Condition: Good Instructions (If sedation given, give patient instructions): Urinary Tract Infection in Men (ED) Additional Instructions: Please take antibiotic as directed. Please follow-up with primary care in 1-2 days. Please return to the emergency department if you have any worsening symptoms.e Prescriptions: Sulfamethox-Tmp 800-160Mg [Bactrim DS 800-160 mg] 1 tab PO Q12HR #14 tab Is patient prescribed a controlled substance at d/c from ED?: No Referrals: Gilmer Lopez MD [Primary Care Provider] - 1-2 days Time of Disposition: 13:26
[2018-05-25 14:06] VITALS: BP 125/62; PULSE 48; TEMP 98.1
== END 2018-05-25 15:39 | disposition home or self-care (01) ==
LOC: EC 10:34
DX: R00.1 Bradycardia, unspecified (principal); N39.0 Urinary tract infection, site not specified; F03.90 Unspecified dementia, unspecified severity, without behavioral disturbance, psychotic disturbance, mood disturbance, and anxiety; D64.9 Anemia, unspecified; Z86.718 Personal history of other venous thrombosis and embolism; I10 Essential (primary) hypertension; G40.909 Epilepsy, unspecified, not intractable, without status epilepticus; Z86.14 Personal history of Methicillin resistant Staphylococcus aureus infection; Z79.01 Long term (current) use of anticoagulants; Z79.82 Long term (current) use of aspirin; Z79.899 Other long term (current) drug therapy; Z95.1 Presence of aortocoronary bypass graft; Z95.818 Presence of other cardiac implants and grafts
CPT/HCPCS: 36415; 93005; 80053; 83605; 84484; 85025; 85610; 85730; 81001; 87040; 87086; 87077; 87186; 71046; 99285; 96365; 96361; J0696

== ENCOUNTER 2018-12-21 15:53 | Emergency (ER) | payer MEDICARE, OTHER ==
[2018-12-21 16:11] VITALS: BP 172/80; PULSE 53; RESP 20; TEMP 97.7
[2018-12-21] MEDS ORDERED: APIXABAN 5 MG TAB PO STA (17:01)
--- NOTE | 2018-12-21 17:03 | ED ---
Extremity Problem HPI - General Chief complaint: Extremity Problem,Nontraumatic Stated complaint: DVT Time Seen by Provider: 12/21/18 16:13 Source: patient Mode of arrival: EMS Limitations: physical limitation - History of Present Illness Initial comments: Patient is 63-year-old male with history of DVTs presenting to the emergency department with a chief complaint of a DVT. Patient has a home health physician who panama visit. Patient reports that they've noticed unilateral left-sided lower extremity swelling that has developed the last 2-3 days. Doppler ultrasound was obtained this morning and the results were relayed to the home health physician. Patient was informed that it DVTs present a left lower extremity and advised to go to the ED. Patient denies any shortness of breath, cough, chest pain, hemoptysis, headache, lightheadedness or dizziness at this time. Patient denies calf tenderness. - Related Data Home Medications Medication Instructions Recorded Confirmed Apixaban [Eliquis] 5 mg PO BID 07/27/17 06/08/18 Lacosamide [Vimpat] 100 mg PO BID 03/07/18 06/08/18 Aspirin EC [Ecotrin Low Dose] 81 mg PO DAILY 03/16/18 06/08/18 Ferrous Sulfate [Feosol] 325 mg PO BID 03/16/18 06/08/18 Metoprolol Tartrate [Lopressor] 12.5 mg PO BID 03/16/18 06/08/18 amLODIPine [Norvasc] 5 mg PO DAILY 03/16/18 06/08/18 Carbidopa-Levodopa 10-100 mg 0.5 tab PO TID 04/06/18 06/08/18 [Sinemet 10-100] Divalproex Sodium [Depakote] 500 mg PO BID 04/06/18 06/08/18 Donepezil [Aricept] 5 mg PO HS 04/06/18 06/08/18 Melatonin 3 mg PO HS 04/06/18 06/08/18 Folic Acid 0.4 mg PO DAILY 05/15/18 06/08/18 Zinc 50 mg PO DAILY 05/15/18 06/08/18 Gabapentin [Neurontin] 100 mg PO TID 05/25/18 06/08/18 Methocarbamol [Robaxin] 750 mg PO Q6H PRN 05/25/18 06/08/18 Nitrofurantoin Monohyd/M-Cryst 100 mg PO Q12HR 06/01/18 06/08/18 [Macrobid] Previous Rx's Medication Instructions Recorded levETIRAcetam [Keppra] 750 mg PO BID #60 tab 02/17/18 Apixaban [Eliquis] 0 mg PO DIRECTED #74 tablet 12/21/18 Allergies Allergy/AdvReac Type Severity Reaction Status Date / Time No Known Allergies Allergy Verified 12/21/18 16:11 Review of Systems ROS Statement: Those systems with pertinent positive or pertinent negative responses have been documented in the HPI. ROS Other: All systems not noted in ROS Statement are negative. Past Medical History Past Medical History: Dementia, Diabetes Mellitus, Deep Vein Thrombosis (DVT), GERD/Reflux, Hyperlipidemia, Hypertension, Prostate Disorder, Seizure Disorder Additional Past Medical History / Comment(s): Spouse states pt has pulled out IVs and other equipment and has thrown himself out of bed in the past-recommends side rails be up at all times, DVT B/L LE, insomnia, osteomeylitis- coccyx wound has had hyerbaric tx and wound vac in the past- goes to [facility] , colostomy d/t coccyx wound, uti's, guillain barre syndrome, neurogenic bladder has suprapubic cath-last changed 04-11-18, paraplegia SINCE LAMINECTOMY FEB 15, 2017-PARALIZED WAIST DOWN, abd hernia, per pt has peg tube but is now able to eat, limited ROM with neck, NIDDM now diet controlled/possible bilateral foot neuropathy. stated "that the dementia pt has also has parkinson like symptoms". History of Any Multi-Drug Resistant Organisms: MRSA, VRE Date of last positivie culture/infection: 05/25/18 MRSA; 07/28/17 VRE MDRO Source:: URINE-MRSA & HIP VRE Past Surgical History: Back Surgery, Bowel Resection, Coronary Bypass/CABG, Heart Catheterization Additional Past Surgical History / Comment(s): LAMINECTOMY 02/15/17-has had total of 4 sx, 2016 CABG-5 vessel, piccs-none now, COLONOSCOPY, COLOSTOMY(was done d/t non healing coccyx wound. Supra PUBIC CATH (changed last 03-14-18), picc lines-since removed, peg tube. PICC Line Past Anesthesia/Blood Transfusion Reactions: Previous Problems w/ Anesthesia Additional Past Anesthesia/Blood Transfusion Reaction / Comment(s): when pt had 2 sx within a short time from each other ,he had diffiuclty waking up. Past blood transfusion-no reaction Past Psychological History: Anxiety, Depression Smoking Status: Never smoker Past Alcohol Use History: None Reported Past Drug Use History: None Reported - Past Family History Brother(s) Family Medical History: Cancer Mother Additional Family Medical History / Comment(s): emphysema Father Additional Family Medical History / Comment(s): emphysema General Exam Limitations: physical limitation General appearance: alert, in no apparent distress Head exam: Present: atraumatic, normocephalic, normal inspection Eye exam: Present: normal appearance Pupils: Present: normal accommodation ENT exam: Present: normal exam, mucous membranes moist, normal external ear exam Neck exam: Present: normal inspection, full ROM Respiratory exam: Present: normal lung sounds bilaterally Cardiovascular Exam: Present: regular rate, normal rhythm, normal heart sounds Extremities exam: Present: normal capillary refill, pedal edema (+1 pitting edema). Absent: normal inspection (Bilateral lower extremity petechia. +1 pedal edema in the left lower extremity.), calf tenderness (Negative Homans bilaterally.) Back exam: Present: normal inspection, full ROM Neurological exam: Present: alert, oriented X3 Psychiatric exam: Present: normal affect, normal mood Skin exam: Present: warm, intact, normal color Course Vital Signs 12/21/18 16:02 Temperature 97.7 F Pulse Rate 53 L Respiratory 20 Rate Blood Pressure 172/80 O2 Sat by Pulse 97 Oximetry Medical Decision Making - Medical Decision Making Patient is a 63-year-old male with history of DVTs is presenting to emergency Department with a chief complaint of a DVT. Patient has a home health physician who visit him today and noticed unilateral lower extremity swelling. Doppler ultrasound was obtained and revealed a DVT. Patient has a history of DVTs. Patient is not on blood thinners at this moment. Patient given a single dose of eliquis. Patient will be discharged on a eliquis taper. Patient also given a 30 day for the trial of the medication. Patient advised to follow-up with home health physician regarding further management. No signs of PE detected at this time. Strict return parameters were thoroughly discussed with patient is a nursing agreeable. Case discussed physician. Disposition Clinical Impression: Deep vein thrombosis (DVT) of lower extremity Disposition: HOME SELF-CARE Condition: Stable Instructions (If sedation given, give patient instructions): Deep Vein Thrombosis (DC) Additional Instructions: Please take prescribed medication as directed. Please follow up with primary care. Prescriptions: Apixaban [Eliquis] 0 mg PO DIRECTED #74 tablet Is patient prescribed a controlled substance at d/c from ED?: No Referrals: Duke Rice MD [Primary Care Provider] - 1-2 days Time of Disposition: 17:03
[2018-12-21] MEDS ORDERED: APIXABAN 5 MG TAB PO SCH (21:00)
== END 2018-12-21 18:34 | disposition home or self-care (01) ==
LOC: EC 15:53
DX: I82.402 Acute embolism and thrombosis of unspecified deep veins of left lower extremity (principal); F03.90 Unspecified dementia, unspecified severity, without behavioral disturbance, psychotic disturbance, mood disturbance, and anxiety; I10 Essential (primary) hypertension; G40.909 Epilepsy, unspecified, not intractable, without status epilepticus; E11.69 Type 2 diabetes mellitus with other specified complication; M86.9 Osteomyelitis, unspecified; E11.40 Type 2 diabetes mellitus with diabetic neuropathy, unspecified; F41.9 Anxiety disorder, unspecified; Z86.14 Personal history of Methicillin resistant Staphylococcus aureus infection; Z87.440 Personal history of urinary (tract) infections; Z95.1 Presence of aortocoronary bypass graft; Z98.890 Other specified postprocedural states; Z93.3 Colostomy status; Z79.01 Long term (current) use of anticoagulants; Z79.82 Long term (current) use of aspirin; Z79.899 Other long term (current) drug therapy
CPT/HCPCS: 99284

== ENCOUNTER 2019-11-05 10:01 | Inpatient (IN) | payer MEDICARE ==
--- NOTE | 2019-11-05 10:25 | ED ---
Weakness HPI - General Stated complaint: UTI Time Seen by Provider: 11/05/19 10:01 Source: patient, family, EMS Mode of arrival: EMS Limitations: no limitations - History of Present Illness Initial comments: This is a 64-year-old male with a history of multiple medical problems including be bedbound who apparently has frequent UTIs and currently is being treated with non-antibiotic methods was getting worse he came in because of increased weakness over last several days blood sugar has been elevated it was 367 today. Currently also some open draining wounds in his legs. No reports of fevers chills or sweats. MD Complaint: generalized weakness - Related Data Home Medications Medication Instructions Recorded Confirmed Apixaban [Eliquis] 5 mg PO BID 07/27/17 06/08/18 Lacosamide [Vimpat] 100 mg PO BID 03/07/18 06/08/18 Aspirin EC [Ecotrin Low Dose] 81 mg PO DAILY 03/16/18 06/08/18 Ferrous Sulfate [Feosol] 325 mg PO BID 03/16/18 06/08/18 Metoprolol Tartrate [Lopressor] 12.5 mg PO BID 03/16/18 06/08/18 amLODIPine [Norvasc] 5 mg PO DAILY 03/16/18 06/08/18 Carbidopa-Levodopa 10-100 mg 0.5 tab PO TID 04/06/18 06/08/18 [Sinemet 10-100] Divalproex Sodium [Depakote] 500 mg PO BID 04/06/18 06/08/18 Donepezil [Aricept] 5 mg PO HS 04/06/18 06/08/18 Melatonin 3 mg PO HS 04/06/18 06/08/18 Folic Acid 0.4 mg PO DAILY 05/15/18 06/08/18 Zinc 50 mg PO DAILY 05/15/18 06/08/18 Gabapentin [Neurontin] 100 mg PO TID 05/25/18 06/08/18 methocarbamoL [Robaxin] 750 mg PO Q6H PRN 05/25/18 06/08/18 Nitrofurantoin Monohyd/M-Cryst 100 mg PO Q12HR 06/01/18 06/08/18 [Macrobid] Previous Rx's Medication Instructions Recorded levETIRAcetam [Keppra] 750 mg PO BID #60 tab 02/17/18 Apixaban [Eliquis] 0 mg PO DIRECTED #74 tablet 12/21/18 Allergies Allergy/AdvReac Type Severity Reaction Status Date / Time No Known Allergies Allergy Verified 12/21/18 16:11 Review of Systems ROS Statement: Those systems with pertinent positive or pertinent negative responses have been documented in the HPI. ROS Other: All systems not noted in ROS Statement are negative. Past Medical History Past Medical History: Dementia, Diabetes Mellitus, Deep Vein Thrombosis (DVT), GERD/Reflux, Hyperlipidemia, Hypertension, Prostate Disorder, Seizure Disorder Additional Past Medical History / Comment(s): Spouse states pt has pulled out IVs and other equipment and has thrown himself out of bed in the past-recommends side rails be up at all times, DVT B/L LE, insomnia, osteomeylitis- coccyx wound has had hyerbaric tx and wound vac in the past- goes to [facility] , colostomy d/t coccyx wound, uti's, guillain barre syndrome, neurogenic bladder has suprapubic cath-last changed 04-11-18, paraplegia SINCE LAMINECTOMY FEB 15, 2017-PARALIZED WAIST DOWN, abd hernia, per pt has peg tube but is now able to eat, limited ROM with neck, NIDDM now diet controlled/possible bilateral foot neuropathy. stated "that the dementia pt has also has parkinson like symptoms". 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 Supra PUBIC CATH (changed last 03-14-18), picc lines-since removed, peg tube. PICC Line Past Anesthesia/Blood Transfusion Reactions: Previous Problems w/ Anesthesia Additional Past Anesthesia/Blood Transfusion Reaction / Comment(s): when pt had 2 sx within a short time from each other ,he had diffiuclty waking up. Past blood transfusion-no reaction Past Psychological History: Anxiety, Depression Smoking Status: Former smoker Past Alcohol Use History: None Reported Past Drug Use History: None Reported - Past Family History Brother(s) Family Medical History: Cancer Mother Additional Family Medical History / Comment(s): emphysema Father Additional Family Medical History / Comment(s): emphysema General Exam - General Exam Comments Initial Comments: This is a well-developed well-nourished awake alert male Limitations: physical limitation General appearance: alert, in no apparent distress Head exam: Present: atraumatic, normocephalic, normal inspection Eye exam: Present: normal appearance, PERRL, EOMI. Absent: scleral icterus, conjunctival injection, periorbital swelling ENT exam: Present: mucous membranes dry Neck exam: Present: normal inspection. Absent: tenderness, meningismus, lymphadenopathy Respiratory exam: Present: decreased breath sounds. Absent: respiratory distress, wheezes, rales, rhonchi, stridor Cardiovascular Exam: Present: regular rate, normal rhythm, normal heart sounds. Absent: systolic murmur, diastolic murmur, rubs, gallop, clicks GI/Abdominal exam: Present: soft, normal bowel sounds. Absent: distended, tenderness, guarding, rebound, rigid Extremities exam: Present: full ROM, normal capillary refill, pedal edema. Absent: tenderness, joint swelling, calf tenderness Back exam: Present: normal inspection Neurological exam: Present: alert, oriented X3, CN II-XII intact, motor sensory deficit Psychiatric exam: Present: normal affect, normal mood Skin exam: Present: warm, dry, intact, normal color. Absent: rash Course Vital Signs 11/05/19 11/05/19 11/05/19 10:08 10:20 11:20 Temperature 97.9 F Pulse Rate 62 62 76 Respiratory 16 18 18 Rate Blood Pressure 133/71 133/71 137/71 O2 Sat by Pulse 96 96 Oximetry 11/05/19 12:00 Temperature Pulse Rate 67 Respiratory 18 Rate Blood Pressure 108/61 O2 Sat by Pulse 95 Oximetry EKG Findings - EKG Results: EKG: interpreted by VINH, sinus rhythm (Sinus rhythm a 64. Interval 178 QRS duration 112 QT/QTC 400/412 incomplete left bundle-branch block evidence of LVH nonspecific T-wave configuration) Medical Decision Making - Lab Data Result diagrams: 11/05/19 10:42 11/05/19 10:42 Lab Results 11/05/19 11/05/19 11/05/19 Range/Units 10:42 10:42 10:42 WBC 5.0 (3.8-10.6) k/uL RBC 3.78 L (4.30-5.90) m/uL Hgb 11.1 L (13.0-17.5) gm/dL Hct 34.0 L (39.0-53.0) % MCV 89.9 (80.0-100.0) fL MCH 29.3 (25.0-35.0) pg MCHC 32.6 (31.0-37.0) g/dL RDW 14.2 (11.5-15.5) % Plt Count 174 (150-450) k/uL Neutrophils % 71 % Lymphocytes % 19 % Monocytes % 4 % Eosinophils % 3 % Basophils % 1 % Neutrophils # 3.5 (1.3-7.7) k/uL Lymphocytes # 1.0 (1.0-4.8) k/uL Monocytes # 0.2 (0-1.0) k/uL Eosinophils # 0.2 (0-0.7) k/uL Basophils # 0.1 (0-0.2) k/uL Sodium 135 L (137-145) mmol/L Potassium 4.0 (3.5-5.1) mmol/L Chloride 106 (98-107) mmol/L Carbon Dioxide 24 (22-30) mmol/L Anion Gap 5 mmol/L BUN 15 (9-20) mg/dL Creatinine 0.83 (0.66-1.25) mg/dL Est GFR (CKD-EPI)AfAm >90 (>60 ml/min/1.73 sqM) Est GFR (CKD-EPI)NonAf >90 (>60 ml/min/1.73 sqM) Glucose 298 H (74-99) mg/dL Plasma Lactic Acid Stanley (0.7-2.0) mmol/L Calcium 8.3 L (8.4-10.2) mg/dL Magnesium 1.9 (1.6-2.3) mg/dL Total Bilirubin 0.6 (0.2-1.3) mg/dL AST 30 (17-59) U/L ALT 18 (4-49) U/L Alkaline Phosphatase 85 (38-126) U/L Creatine Kinase 81 (55-170) U/L Total Protein 6.6 (6.3-8.2) g/dL Albumin 3.4 L (3.5-5.0) g/dL Urine Color Yellow Urine Appearance Turbid (Clear) Urine pH 5.5 (5.0-8.0) Ur Specific Sebastian 1.022 (1.001-1.035) Urine Protein 1+ H (Negative) Urine Glucose (UA) 4+ H (Negative) Urine Ketones Negative (Negative) Urine Blood Small H (Negative) Urine Nitrite Positive (Negative) Urine Bilirubin Negative (Negative) Urine Urobilinogen <2.0 (<2.0) mg/dL Ur Leukocyte Esterase Large H (Negative) Urine RBC 6 H (0-5) /hpf Urine WBC >182 H (0-5) /hpf Urine WBC Clumps Many H (None) /hpf Ur Squamous Epith Cells 1 (0-4) /hpf Calcium Oxalate Crystal Rare H (None) /hpf Amorphous Sediment Occasional H (None) /hpf Urine Bacteria Moderate H (None) /hpf 11/05/19 Range/Units 10:42 WBC (3.8-10.6) k/uL RBC (4.30-5.90) m/uL Hgb (13.0-17.5) gm/dL Hct (39.0-53.0) % MCV (80.0-100.0) fL MCH (25.0-35.0) pg MCHC (31.0-37.0) g/dL RDW (11.5-15.5) % Plt Count (150-450) k/uL Neutrophils % % Lymphocytes % % Monocytes % % Eosinophils % % Basophils % % Neutrophils # (1.3-7.7) k/uL Lymphocytes # (1.0-4.8) k/uL Monocytes # (0-1.0) k/uL Eosinophils # (0-0.7) k/uL Basophils # (0-0.2) k/uL Sodium (137-145) mmol/L Potassium (3.5-5.1) mmol/L Chloride (98-107) mmol/L Carbon Dioxide (22-30) mmol/L Anion Gap mmol/L BUN (9-20) mg/dL Creatinine (0.66-1.25) mg/dL Est GFR (CKD-EPI)AfAm (>60 ml/min/1.73 sqM) Est GFR (CKD-EPI)NonAf (>60 ml/min/1.73 sqM) Glucose (74-99) mg/dL Plasma Lactic Acid Stanley 0.9 (0.7-2.0) mmol/L Calcium (8.4-10.2) mg/dL Magnesium (1.6-2.3) mg/dL Total Bilirubin (0.2-1.3) mg/dL AST (17-59) U/L ALT (4-49) U/L Alkaline Phosphatase (38-126) U/L Creatine Kinase (55-170) U/L Total Protein (6.3-8.2) g/dL Albumin (3.5-5.0) g/dL Urine Color Urine Appearance (Clear) Urine pH (5.0-8.0) Ur Specific Sebastian (1.001-1.035) Urine Protein (Negative) Urine Glucose (UA) (Negative) Urine Ketones (Negative) Urine Blood (Negative) Urine Nitrite (Negative) Urine Bilirubin (Negative) Urine Urobilinogen (<2.0) mg/dL Ur Leukocyte Esterase (Negative) Urine RBC (0-5) /hpf Urine WBC (0-5) /hpf Urine WBC Clumps (None) /hpf Ur Squamous Epith Cells (0-4) /hpf Calcium Oxalate Crystal (None) /hpf Amorphous Sediment (None) /hpf Urine Bacteria (None) /hpf Disposition Clinical Impression: Urinary tract infection, Dehydration, Failure to thrive Disposition[facility] Condition: Fair Referrals: None,Stated [REFERRING] - 1-2 days
[2019-11-05 10:54] LABS: Basophils # (A) 0.1 k/uL (0-0.2); Basophils % (A) 1 %; Eosinophils # (A) 0.2 k/uL (0-0.7); Eosinophils % (A) 3 %; HGB 11.1 gm/dL (13.0-17.5); Lymphocytes % (A) 19 %; MCH 29.3 pg (25.0-35.0); MCHC 32.6 g/dL (31.0-37.0); MCV 89.9 fL (80.0-100.0); Monocytes # (A) 0.2 k/uL (0-1.0); Monocytes % (A) 4 %; Neutrophils # (A) 3.5 k/uL (1.3-7.7); Neutrophils % (A) 71 %; Platelet Count 174 k/uL (150-450); RBC 3.78 m/uL (4.30-5.90); RDW 14.2 % (11.5-15.5)
[2019-11-05 11:03] LABS: ALT 18 U/L (4-49); AST 30 U/L (17-59); African American GFR (CKD) >90 (>60 ml/min/1.73 sqM); Albumin 3.4 g/dL (3.5-5.0); Alkaline Phosphatase 85 U/L (38-126); Anion Gap 5 mmol/L; Blood Urea Nitrogen 15 mg/dL (9-20); Calcium 8.3 mg/dL (8.4-10.2); Carbon Dioxide 24 mmol/L (22-30); Chloride 106 mmol/L (98-107); Creatine Kinase 81 U/L (55-170); Glucose 298 mg/dL (74-99); Magnesium 1.9 mg/dL (1.6-2.3); Non-African American GFR(CKD) >90 (>60 ml/min/1.73 sqM); Sodium 135 mmol/L (137-145); Total Bilirubin 0.6 mg/dL (0.2-1.3); Total Protein 6.6 g/dL (6.3-8.2)
[2019-11-05 11:14] LABS: Amorphous Sediment,Urine Occasional /hpf; Appearance,Urine Turbid (Clear); Bacteria,Urine Moderate /hpf; Bilirubin,Urine Negative (Negative); Blood,Urine Small (Negative); Calcium Oxalate Crystals,Urine Rare /hpf; Color,Urine Yellow; Glucose,Urine (UA) 4+ (Negative); Ketones,Urine Negative (Negative); Leukocyte Esterase,Urine Large (Negative); Nitrite,Urine Positive (Negative); PH, Urine 5.5 (5.0-8.0); Protein,Urine 1+ (Negative); RBC,Urine 6 /hpf (0-5); Specific Gravity,Urine 1.022 (1.001-1.035); Squamous Epithelial Cell,Urine 1 /hpf (0-4); Urobilinogen,Urine <2.0 mg/dL (<2.0); WBC,Urine >182 /hpf (0-5)
[2019-11-05] MEDS ORDERED: cefTRIAXone IN SWFI 1,000 MG/10 ML SYRINGE IVP STA (11:31)
--- NOTE | 2019-11-05 11:57 | XR ---
EXAMINATION TYPE: XR chest 2V DATE OF EXAM: 11/05/2019 CLINICAL HISTORY: Weakness TECHNIQUE: Frontal and lateral views of the chest are obtained. COMPARISON: 05/25/2018 FINDINGS: Low lung volumes. Sternotomy wires. Redemonstrated cardiomegaly. Pulmonary vasculature is normal. No pleural effusion. No pneumothorax. No evidence of displaced osseous fracture. There are br idging osteophytes of the thoracic spine. IMPRESSION: Cardiomegaly. No acute cardiopulmonary process.
[2019-11-05] MEDS ORDERED: NALOXONE 0.4 MG/ML 1 ML VIAL IV PRN (12:50)
[2019-11-05] MEDS ORDERED: methocarbamoL 750 MG TAB PO PRN (12:51)
[2019-11-05] MEDS ORDERED: APIXABAN 5 MG TAB PO SCH (13:00)
[2019-11-05] MEDS: SODIUM CHLORIDE 0.9% 1,000 ML IV SCH (13:22)
[2019-11-05 15:23] LABS: Glucose,Whole Blood 262 mg/dL (75-99)
[2019-11-05] MEDS: CARBIDOPA-LEVODOPA 10-100 MG 1 EACH TAB PO SCH ×2 (16:23→22:15)
[2019-11-05] MEDS: GABAPENTIN 100 MG CAP PO SCH ×3 (16:27→21:24)
[2019-11-05] MEDS: INSULIN ASPART (NovoLOG) 100 UNIT/ML VIAL SQ SCH ×2 (18:07→21:24)
[2019-11-05 18:10] LABS: Glucose,Whole Blood 305 mg/dL (75-99)
[2019-11-05 20:40] LABS: Glucose,Whole Blood 305 mg/dL (75-99)
[2019-11-05] MEDS ORDERED: LACOSAMIDE 50 MG TABLET PO SCH (21:00)
[2019-11-05] MEDS ORDERED: METOPROLOL TARTRATE 12.5 MG TAB PO SCH (21:00)
[2019-11-05] MEDS ORDERED: DIVALPROEX 500 MG TABLET.DR PO SCH (21:00)
[2019-11-05] MEDS ORDERED: FERROUS SULFATE 325 MG TAB PO SCH (21:00)
[2019-11-05] MEDS ORDERED: MELATONIN 3 MG TABLET PO SCH (21:00)
[2019-11-05] MEDS: APIXABAN 5 MG TAB PO SCH (21:24)
[2019-11-06] MEDS: SODIUM CHLORIDE 0.9% 1,000 ML IV SCH ×2 (05:52→17:15)
[2019-11-06 07:03] LABS: Glucose,Whole Blood 261 mg/dL (75-99)
[2019-11-06] MEDS: INSULIN ASPART (NovoLOG) 100 UNIT/ML VIAL SQ SCH ×5 (07:22→21:33)
[2019-11-06] MEDS: APIXABAN 5 MG TAB PO SCH ×2 (07:23→21:31)
[2019-11-06] MEDS: CARBIDOPA-LEVODOPA 10-100 MG 1 EACH TAB PO SCH ×3 (07:23→21:31)
[2019-11-06] MEDS: GABAPENTIN 100 MG CAP PO SCH ×3 (07:24→21:31)
[2019-11-06 08:44] LABS: Basophils % (A) 1 %; Eosinophils # (A) 0.3 k/uL (0-0.7); Eosinophils % (A) 6 %; HCT 35.4 % (39.0-53.0); HGB 11.5 gm/dL (13.0-17.5); Hypochromasia Slight; Lymphocytes # (A) 1.2 k/uL (1.0-4.8); Lymphocytes % (A) 23 %; MCH 30.1 pg (25.0-35.0); MCHC 32.6 g/dL (31.0-37.0); MCV 92.2 fL (80.0-100.0); Mean Platelet Volume 7.2; Monocytes # (A) 0.3 k/uL (0-1.0); Monocytes % (A) 5 %; Neutrophils # (A) 3.5 k/uL (1.3-7.7); Neutrophils % (A) 65 %; Platelet Count 166 k/uL (150-450); RBC 3.84 m/uL (4.30-5.90); RDW 14.3 % (11.5-15.5); WBC 5.4 k/uL (3.8-10.6)
[2019-11-06] MEDS ORDERED: NON FORMULARY DRUG (Folic Acid [Folic Acid] 0.4 MG) PO SCH (09:00)
[2019-11-06] MEDS ORDERED: amLODIPine 5 MG TAB PO SCH (09:00)
[2019-11-06] MEDS ORDERED: ASPIRIN 81 MG PO SCH (09:00)
[2019-11-06] MEDS ORDERED: NON FORMULARY DRUG (Zinc [Zinc] 50 MG) PO SCH (09:00)
[2019-11-06] MEDS ORDERED: [UNRECOGNIZED DRUG - OTHER] SQ SCH (09:00)
[2019-11-06 09:10] LABS: African American GFR (CKD) >90 (>60 ml/min/1.73 sqM); Anion Gap 7 mmol/L; Blood Urea Nitrogen 16 mg/dL (9-20); Calcium 8.4 mg/dL (8.4-10.2); Carbon Dioxide 22 mmol/L (22-30); Chloride 107 mmol/L (98-107); Glucose 253 mg/dL (74-99); Non-African American GFR(CKD) >90 (>60 ml/min/1.73 sqM); Potassium 3.9 mmol/L (3.5-5.1); Sodium 136 mmol/L (137-145)
[2019-11-06 11:59] LABS: Glucose,Whole Blood 277 mg/dL (75-99)
[2019-11-06 17:05] LABS: Glucose,Whole Blood 332 mg/dL (75-99)
--- NOTE | 2019-11-06 17:24 | P.HPIM ---
History of Present Illness H&P Date: 11/06/19 This is a pleasant 64 years old male with past medical history of dementia, diabetes mellitus, GERD, hyperlipidemia, hypertension, seizure disorder, DVT , osteomyelitis of the coccyx, status post colostomy, neurogenic bladder status post suprapubic catheter, paraplegia since laminectomy in February 2017 and paralyzed from waist down, previous infection with MRSA/VRE and Parkinson disease, presented to the ER with increased weakness, visual hallucinations, elevated blood sugars up into the mid 300s and bilateral lower extremity draining wounds. Denies fevers, chills. Denies chest pain, palpitations or increasing shortness of breath. Denies nausea vomiting or diarrhea. Afebrile, normal WBC. Blood and urine cultures obtained, IV antibiotics initiated of Rocephin. Review of Systems ROS Statement: Those systems with pertinent positive or pertinent negative responses have been documented in the HPI. ROS Other: All systems not noted in ROS Statement are negative. Past Medical History Past Medical History: Dementia, Diabetes Mellitus, Deep Vein Thrombosis (DVT), GERD/Reflux, Hyperlipidemia, Hypertension, Prostate Disorder, Seizure Disorder Additional Past Medical History / Comment(s): Spouse states pt has pulled out IVs and other equipment and has thrown himself out of bed in the past-recommends side rails be up at all times, DVT B/L LE, insomnia, osteomeylitis- coccyx wound has had hyerbaric tx and wound vac in the past- goes to [facility] every , colostomy d/t coccyx wound, uti's, guillain barre syndrome, neurogenic bladder has suprapubic cath-last changed 04-11-18, paraplegia SINCE LAMINECTOMY FEB 15, 2017-PARALIZED WAIST DOWN, abd hernia, per pt has peg tube but is now able to eat, limited ROM with neck, NIDDM now diet controlled/possible bilateral foot neuropathy. stated "that the dementia pt has also has parkinson like sympt oms". 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 Supra PUBIC CATH (changed last 03-14-18), picc lines-since removed, peg tube. PICC Line Past Anesthesia/Blood Transfusion Reactions: Previous Problems w/ Anesthesia Additional Past Anesthesia/Blood Transfusion Reaction / Comment(s): when pt had 2 sx within a short time from each other ,he had diffiuclty waking up. Past blood transfusion-no reaction Past Psychological History: Anxiety, Depression Additional Psychological History / Comment(s): pt lives at home w/spouse. [facility]. Has hospital bed/air mattress, temitope lift but stated pt is currently bedridden -not to sit in chair d/t wounds coccyx/buttocks, turn every 2 hours(per ) Smoking Status: Former smoker Past Alcohol Use History: None Reported Additional Past Alcohol Use History / Comment(s): started smoking at age 17 and QUIT SMOKING cigarettes 1992-started smoking cigars and , QUIT CIGARS 2009, no alcohol now Past Drug Use History: None Reported - Past Family History Brother(s) Family Medical History: Cancer Mother Additional Family Medical History / Comment(s): emphysema Father Additional Family Medical History / Comment(s): emphysema Medications and Allergies Home Medications Medication Instructions Recorded Confirmed Type Apixaban [Eliquis] 5 mg PO BID 07/27/17 11/05/19 History Carbidopa-Levodopa 10-100 mg 0.5 tab PO TID 04/06/18 11/05/19 History [Sinemet 10-100] Donepezil [Aricept] 5 mg PO HS 04/06/18 11/05/19 History Gabapentin 800 mg PO TID 11/05/19 11/05/19 History Insulin Glargine/Lixisenatide 26 units SQ DAILY 11/05/19 11/05/19 History [Soliqua 100 Unit-33 Mcg/ml Pen] Losartan [Cozaar] 25 mg PO DAILY 11/05/19 11/05/19 History methocarbamoL [Robaxin] 500 mg PO TID PRN 11/05/19 11/05/19 History Allergies Allergy/AdvReac Type Severity Reaction Status Date / Time No Known Allergies Allergy Verified 12/21/18 16:11 Physical Exam Vitals: Vital Signs Temp Pulse Pulse Resp BP BP Pulse Ox 11/06/19 12:14 98 F 74 18 163/78 95 11/06/19 06:10 97.8 F 69 18 148/73 96 11/05/19 21:00 97.9 F 62 18 148/72 97 11/05/19 18:30 97.9 F 78 18 114/83 95 11/05/19 18:00 78 18 114/83 95 11/05/19 17:00 18 95 Intake and Output 11/06/19 11/06/19 11/06/19 06:59 14:59 22:59 Output Total 400 Balance -400 Output: Urine 200 Stool 200 Other: Voiding Method Incontinent Ileal Conduit (Right) GENERAL: The patient is alert and oriented x3, not in any acute distress. Well developed, well nourished. HEENT: Pupils are round and equally reacting to light. EOMI. No scleral icterus. No conjunctival pallor. Normocephalic, atraumatic. No pharyngeal erythema. No thyromegaly. CARDIOVASCULAR: S1 and S2 present. No murmurs, rubs, or gallops. PULMONARY: Chest is clear to auscultation, no wheezing or crackles. ABDOMEN: Soft, nontender, nondistended, normoactive bowel sounds. Functioning Colostomy present LLQ. No palpable organomegaly. Coccyx Pressure wound dressing clean dry and intact, please refer to pictures in chart MUSCULOSKELETAL: No joint swelling or deformity. EXTREMITIES: No cyanosis, clubbing, or pedal edema. Bilateral lower extremity stage II pressure ulcers: Left is approximately 0.5 x 1, right is approximate 2 x 2.5, draining serosanguineous. NEUROLOGICAL: Gross neurological examination did not reveal any focal deficits. Paraplegic SKIN: Warm and dry, No rashes. Results CBC & Chem 7: 11/06/19 07:49 11/06/19 07:49 Labs: Abnormal Lab Results - Last 24 Hours (Table) 11/05/19 11/05/19 11/06/19 Range/Units 17:58 20:28 07:02 RBC (4.30-5.90) m/uL Hgb (13.0-17.5) gm/dL Hct (39.0-53.0) % Sodium (137-145) mmol/L Glucose (74-99) mg/dL POC Glucose (mg/dL) 305 H 305 H 261 H (75-99) mg/dL 11/06/19 11/06/19 11/06/19 Range/Units 07:49 07:49 11:57 RBC 3.84 L (4.30-5.90) m/uL Hgb 11.5 L (13.0-17.5) gm/dL Hct 35.4 L (39.0-53.0) % Sodium 136 L (137-145) mmol/L Glucose 253 H (74-99) mg/dL POC Glucose (mg/dL) 277 H (75-99) mg/dL Microbiology - Last 24 Hours (Table) 11/05/19 10:42 Urine Culture - Preliminary Urine,Voided Gram Neg Bacilli 11/05/19 10:42 Blood Culture - Preliminary Blood No Growth after 24 hours Thrombosis Risk Factor Assmnt - Choose All That Apply Any of the Below Risk Factors Present?: Yes Each Factor Represents 1 point: Medical pt on bed rest, Obesity (BMI >25), Swollen legs (current) Other Risk Factors: Yes Each Risk Factor Represents 2 Points: Age 61-74 years, Patient confined to bed Other congenital or acquired thrombophilia - If yes, enter type in comment: No Thrombosis Risk Factor Assessment Total Risk Factor Score: 7 Thrombosis Risk Factor Assessment Level: High Risk Assessment and Plan Assessment: Sepsis secondary to Acute UTI in a patient with an SP catheter last changed on October 22 by home care nurse, cultures pending Acute metabolic encephalopathy secondary to the above Borderline Hypotension on admission, improved Bilateral lower extremity stage II pressure ulcers Coccyx Decubitus ulcer with history of coccygeal osteomyelitis, status post wound VAC, follow-up with the wound care center. Measurements being obtained by nursing, pending. Parkinson's disease Diabetes mellitus, hyperglycemia Hypertension Hyperlipidemia GERD History of seizure disorder on Keppra History of DVT on Eliquis Paraplegia Plan: Continue on current medication regime ,monitoring and symptomatic treatment. Maintain IV antibiotics, IV fluid hydration. Blood and Urine cultures pending. Wound care with aqua cell silver followed by Ramon wraps. Increase long-acting insulin to 30 units and added premeal insulin with close monitoring of blood sugars. A1c pending. Planning care discussed at bedside with both patient and significant other. Home meds have been reviewed and res umed accordingly. GI and DVT prophylaxis in place. Close monitoring of electrolytes, renal function with repeat labs ordered for a.m. prognosis guarded given multiple complex medical issues. The impression and plan of care has been dictated as directed. : I performed a history and examination of this patient, discussed the same with the dictator. I agree with the dictator's note ,documented as a scribe. Any additional findings or plans will be noted.
[2019-11-06 19:57] LABS: Glucose,Whole Blood 313 mg/dL (75-99)
[2019-11-06] MEDS: PANTOPRAZOLE 40 MG/10 ML VIAL IVP SCH (21:34)
[2019-11-07] MEDS: SODIUM CHLORIDE 0.9% 1,000 ML IV SCH ×2 (02:29→17:24)
[2019-11-07 06:19] LABS: Glucose,Whole Blood 263 mg/dL (75-99)
[2019-11-07] MEDS ORDERED: INSULIN DETEMIR (LEVEMIR) 100 UNIT/ML SYR SQ SCH ×2 (07:00)
[2019-11-07] MEDS: INSULIN ASPART (NovoLOG) 100 UNIT/ML VIAL SQ SCH ×7 (07:17→20:56)
[2019-11-07] MEDS: GABAPENTIN 100 MG CAP PO SCH ×3 (07:18→20:55)
[2019-11-07] MEDS: CARBIDOPA-LEVODOPA 10-100 MG 1 EACH TAB PO SCH ×3 (07:18→20:55)
[2019-11-07] MEDS: APIXABAN 5 MG TAB PO SCH ×2 (07:18→20:55)
[2019-11-07] MEDS: PANTOPRAZOLE 40 MG/10 ML VIAL IVP SCH (07:19)
[2019-11-07 07:40] LABS: Basophils % (A) 1 %; Eosinophils # (A) 0.3 k/uL (0-0.7); Eosinophils % (A) 5 %; HCT 34.3 % (39.0-53.0); HGB 10.9 gm/dL (13.0-17.5); Hypochromasia Slight; Lymphocytes # (A) 0.9 k/uL (1.0-4.8); Lymphocytes % (A) 17 %; MCH 28.9 pg (25.0-35.0); MCHC 31.7 g/dL (31.0-37.0); MCV 91.3 fL (80.0-100.0); Mean Platelet Volume 7.3; Monocytes # (A) 0.3 k/uL (0-1.0); Monocytes % (A) 5 %; Neutrophils # (A) 3.8 k/uL (1.3-7.7); Neutrophils % (A) 71 %; Platelet Count 154 k/uL (150-450); RBC 3.75 m/uL (4.30-5.90); RDW 14.2 % (11.5-15.5); WBC 5.4 k/uL (3.8-10.6)
[2019-11-07 07:55] LABS: African American GFR (CKD) >90 (>60 ml/min/1.73 sqM); Anion Gap 4 mmol/L; Blood Urea Nitrogen 16 mg/dL (9-20); Calcium 8.1 mg/dL (8.4-10.2); Carbon Dioxide 25 mmol/L (22-30); Chloride 108 mmol/L (98-107); Glucose 267 mg/dL (74-99); Non-African American GFR(CKD) 82 (>60 ml/min/1.73 sqM); Potassium 3.9 mmol/L (3.5-5.1); Sodium 137 mmol/L (137-145)
[2019-11-07 11:48] LABS: Glucose,Whole Blood 307 mg/dL (75-99)
[2019-11-07 13:57] VITALS: BMI 46.6
--- NOTE | 2019-11-07 15:04 | P.PN ---
Subjective Progress Note Date: 11/07/19 This is a pleasant 64 years old male with past medical history of dementia, diabetes mellitus, GERD, hyperlipidemia, hypertension, seizure disorder, DVT , osteomyelitis of the coccyx, status post colostomy, neurogenic bladder status post suprapubic catheter, paraplegia since laminectomy in February 2017 and paralyzed from waist down, previous infection with MRSA/VRE and Parkinson disease, presented to the ER with increased weakness, visual hallucinations, elevated blood sugars up into the mid 300s and bilateral lower extremity draining wounds. Denies fevers, chills. Denies chest pain, palpitations or increasing shortness of breath. Denies nausea vomiting or diarrhea. Afebrile, normal WBC. Blood and urine cultures obtained, IV antibiotics initiated of Rocephin. 11/07/19 19 on IV antibiotics of Rocephin, IV fluid hydration. Urine cultures reporting Citrobacter freundii and Klebsiella pneumonia. Afebrile, WBC trending down to 17.9. Confusion improving but reports did not sleep well. Reports phantom leg sensations. Denies chest pain, palpitations or shortness of breath. Objective - Vital Signs Vital signs: Vital Signs Temp 97.7 F 11/07/19 12:02 Pulse 78 11/07/19 12:02 Resp 18 11/07/19 12:02 BP 173/77 11/07/19 12:02 Pulse Ox 97 11/07/19 12:02 Intake & Output 11/06/19 11/07/19 11/07/19 18:59 06:59 18:59 Intake Total 1060 540 Output Total 500 1075 Balance -500 -15 540 Weight 147.418 kg Intake: Intake, IV Titration 960 Amount Sodium Chloride 0.9% 1, 960 000 ml @ 80 mls/hr IV . [id number] Rx#:[id number] Oral 100 540 Output: Urine 500 775 Stool 300 Other: Voiding Method Incontinent Incontinent Incontinent Ileal Conduit (Right) Indwelling Catheter Indwelling Catheter # Bowel Movements 1 - Exam GENERAL: The patient is alert and oriented x3, not in any acute distress. HEENT: Pupils are round and equally reacting to light. EOMI. No scleral icterus. No conjunctival pallor. Normocephalic, atraumatic. No pharyngeal erythema. No thyromegaly. CARDIOVASCULAR: S1 and S2 present. No murmurs, rubs, or gallops. PULMONARY: Chest is clear to auscultation, no wheezing or crackles. ABDOMEN: Soft, nontender, nondistended, normoactive bowel sounds. Functioning Colostomy present LLQ. No palpable organomegaly. Stage III coccyx ulcer/dressing clean dry and intact EXTREMITIES: Bilateral lower extremity stage II pressure ulcers: Left is approximately 0.5 x 1, right is approximate 2 x 2.5, draining serosanguineous, positive edema. NEUROLOGICAL: Gross neurological examination did not reveal any focal deficits. Paraplegic SKIN: Warm and dry, No rashes. - Labs CBC & Chem 7: 11/07/19 06:57 11/07/19 06:57 Labs: Abnormal Lab Results - Last 24 Hours (Table) 11/06/19 11/06/19 11/07/19 Range/Units 17:03 19:56 06:16 RBC (4.30-5.90) m/uL Hgb (13.0-17.5) gm/dL Hct (39.0-53.0) % Lymphocytes # (1.0-4.8) k/uL Chloride (98-107) mmol/L Glucose (74-99) mg/dL POC Glucose (mg/dL) 332 H 313 H 263 H (75-99) mg/dL Calcium (8.4-10.2) mg/dL 11/07/19 11/07/19 11/07/19 Range/Units 06:57 06:57 11:34 RBC 3.75 L (4.30-5.90) m/uL Hgb 10.9 L (13.0-17.5) gm/dL Hct 34.3 L (39.0-53.0) % Lymphocytes # 0.9 L (1.0-4.8) k/uL Chloride 108 H (98-107) mmol/L Glucose 267 H (74-99) mg/dL POC Glucose (mg/dL) 307 H (75-99) mg/dL Calcium 8.1 L (8.4-10.2) mg/dL Microbiology - Last 24 Hours (Table) 11/05/19 10:42 Blood Culture - Preliminary Blood No Growth after 48 hours 11/05/19 10:42 Urine Culture - Final Urine,Voided Citrobacter freundii Klebsiella pneumoniae Assessment and Plan Assessment: Sepsis secondary to Acute UTI with Citrobacter freundii and Klebsiella pneumonia,in a patient with an SP catheter last changed on October 22 by home care nurse, cultures pending Acute metabolic encephalopathy secondary to the above Borderline Hypotension on admission, improved Bilateral lower extremity stage II pressure ulcers Stage III Coccyx Decubitus ulcer with history of coccygeal osteomyelitis, status post wound VAC, follow-up with the wound care center. Parkinson's disease Diabetes mellitus, hyperglycemia Hypertension Hyperlipidemia GERD History of seizure disorder on Keppra History of DVT on Eliquis Paraplegia Plan: Continue on current medication regime ,monitoring and symptomatic treatment. Maintain IV antibiotics, IV fluid hydration. Blood cultures pending. Local wound care with aqua cell silver followed by Ramon wraps. Hyperglycemia, tighter blood sugar control with Levemir and premeal insulin increased.Close monitoring of blood sugars. A1c pending. Planning care discussed at bedside with both patient and significant other. Close monitoring of electrolytes, renal function with repeat labs ordered for a.m. discharge planning in progress for potentially tomorrow. The impression and plan of care has been dictated as directed. : I performed a history and examination of this patient, discussed the same with the dictator. I agree with the dictator's note ,documented as a scribe. Any additional findings or plans will be noted.
[2019-11-07] MEDS: LOSARTAN 25 MG TAB PO SCH (15:56)
[2019-11-07 17:07] LABS: Glucose,Whole Blood 269 mg/dL (75-99)
[2019-11-07 18:46] LABS: Hemoglobin A1C 8.3 % (4.0-6.0)
[2019-11-07 19:55] LABS: Glucose,Whole Blood 239 mg/dL (75-99)
[2019-11-08] MEDS: SODIUM CHLORIDE 0.9% 1,000 ML IV SCH (01:57)
[2019-11-08 04:47] VITALS: TEMP 97.7
[2019-11-08] MEDS ORDERED: INSULIN DETEMIR (LEVEMIR) 100 UNIT/ML SYR SQ SCH (07:00)
[2019-11-08 07:12] LABS: Glucose,Whole Blood 225 mg/dL (75-99)
[2019-11-08] MEDS: INSULIN ASPART (NovoLOG) 100 UNIT/ML VIAL SQ SCH ×2 (07:53)
[2019-11-08] MEDS: APIXABAN 5 MG TAB PO SCH (07:54)
[2019-11-08] MEDS: CARBIDOPA-LEVODOPA 10-100 MG 1 EACH TAB PO SCH (07:54)
[2019-11-08] MEDS: GABAPENTIN 100 MG CAP PO SCH (07:54)
[2019-11-08] MEDS: LOSARTAN 25 MG TAB PO SCH (07:54)
[2019-11-08 08:03] LABS: Basophils % (A) 1 %; Eosinophils # (A) 0.3 k/uL (0-0.7); Eosinophils % (A) 7 %; HCT 35.6 % (39.0-53.0); HGB 11.3 gm/dL (13.0-17.5); Lymphocytes # (A) 1.1 k/uL (1.0-4.8); Lymphocytes % (A) 22 %; MCH 28.8 pg (25.0-35.0); MCHC 31.7 g/dL (31.0-37.0); MCV 90.8 fL (80.0-100.0); Mean Platelet Volume 7.2; Monocytes # (A) 0.2 k/uL (0-1.0); Monocytes % (A) 5 %; Neutrophils # (A) 3.1 k/uL (1.3-7.7); Neutrophils % (A) 64 %; Platelet Count 149 k/uL (150-450); RBC 3.92 m/uL (4.30-5.90); RDW 14.1 % (11.5-15.5); WBC 4.9 k/uL (3.8-10.6)
[2019-11-08 08:15] LABS: African American GFR (CKD) >90 (>60 ml/min/1.73 sqM); Anion Gap 5 mmol/L; Blood Urea Nitrogen 14 mg/dL (9-20); Calcium 8.3 mg/dL (8.4-10.2); Carbon Dioxide 25 mmol/L (22-30); Chloride 108 mmol/L (98-107); Glucose 223 mg/dL (74-99); Non-African American GFR(CKD) >90 (>60 ml/min/1.73 sqM); Potassium 3.7 mmol/L (3.5-5.1); Sodium 138 mmol/L (137-145)
[2019-11-08] MEDS ORDERED: PANTOPRAZOLE 40 MG TABLET PO SCH (09:00)
[2019-11-08 11:04] LABS: Glucose,Whole Blood 230 mg/dL (75-99)
[2019-11-08 11:54] VITALS: BP 177/76; PULSE 70; RESP 18
--- NOTE | 2019-11-08 13:39 | P.DS ---
Providers Date of admission: 11/07/19 09:49 Expected date of discharge: 11/08/19 Attending physician: Gilmer Lopez Primary care physician: Gilmer Lopez [facility] Course: final Diagnoses: Sepsis secondary to Acute UTI with Citrobacter freundii and Klebsiella pneumonia,in a patient with an SP catheter last changed on October 22 by home care nurse, cultures reporting Citrobacter freundii and Klebsiella pneumonia. Acute metabolic encephalopathy secondary to the above Borderline Hypotension on admission, improved Bilateral lower extremity stage II pressure ulcers Stage III Coccyx Decubitus ulcer with history of coccygeal osteomyelitis, status post wound VAC, follow-up with the wound care center. Parkinson's disease Diabetes mellitus, hyperglycemia Hypertension Hyperlipidemia GERD History of seizure disorder on Keppra [facility] Hospital course:This is a pleasant 64 years old male with past medical history of dementia, diabetes mellitus, GERD, hyperlipidemia, hypertension, seizure disorder, DVT , osteomyelitis of the coccyx, status post colostomy, neurogenic bladder status post suprapubic catheter, paraplegia since laminectomy in February 2017 and paralyzed from waist down, previous infection with MRSA/VRE and Parkinson disease, presented to the ER with increased weakness, visual hallucinations, elevated blood sugars up into the mid 300s and bilateral lower extremity draining wounds. Denies fevers, chills. Denies chest pain, palpitations or increasing shortness of breath. Denies nausea vomiting or diarrhea. Afebrile, normal WBC. Blood and urine cultures obtained, IV antibiotics initiated of Rocephin. 11/07/19 19 on IV antibiotics of Rocephin, IV fluid hydration. Urine cultures reporting Citrobacter freundii and Klebsiella pneumonia. Afebrile, WBC trending down to 17.9. Confusion improving but reports did not sleep well. Reports phantom leg sensations. Denies chest pain, palpitations or shortness of breath. maintained on IV antibiotics.sensorium significantly improved. patient is being discharged home today in stable condition with guarded prognosis. The impression and plan of care has been dictated as directed. : I performed a history and examination of this patient, discussed the same with the dictator. I agree with the dictator's note ,documented as a scribe. Any additional findings or plans will be noted. Patient Condition at Discharge: Stable Plan - Discharge Summary Discharge Rx Participant: Yes New Discharge Prescriptions: New Cefdinir 300 mg PO Q12HR 7 Days #14 cap Gabapentin [Neurontin] 100 mg PO TID #9 cap Pantoprazole [Protonix] 40 mg PO DAILY #30 tablet.dr Continue Apixaban [Eliquis] 5 mg PO BID Carbidopa-Levodopa 10-100 mg [Sinemet 10-100 mg] 0.5 tab PO TID Donepezil [Aricept] 5 mg PO HS methocarbamoL [Robaxin] 500 mg PO TID PRN PRN Reason: Pain Losartan [Cozaar] 25 mg PO DAILY Changed Insulin Glargine/Lixisenatide [Soliqua 100 Unit-33 Mcg/ml Pen] 30 units SQ DAILY #0 Discontinued Gabapentin 800 mg PO TID Discharge Medication List Apixaban [Eliquis] 5 mg PO BID 07/27/17 [History] Carbidopa-Levodopa 10-100 mg [Sinemet 10-100 mg] 0.5 tab PO TID 04/06/18 [History] Donepezil [Aricept] 5 mg PO HS 04/06/18 [History] Losartan [Cozaar] 25 mg PO DAILY 11/05/19 [History] methocarbamoL [Robaxin] 500 mg PO TID PRN 11/05/19 [History] Cefdinir 300 mg PO Q12HR 7 Days #14 cap 11/08/19 [Rx] Gabapentin [Neurontin] 100 mg PO TID #9 cap 11/08/19 [Rx] Insulin Glargine/Lixisenatide [Soliqua 100 Unit-33 Mcg/ml Pen] 30 units SQ DAILY #0 11/08/19 [Rx] Pantoprazole [Protonix] 40 mg PO DAILY #30 tablet. 11/08/19 [Rx] Follow up Appointment(s)/Referral(s): None,Stated [REFERRING] - 1-2 days Gilmer Lopez MD [Primary Care Provider] - 11/13/19 3:00 pm Ambulatory/Diagnostic Orders: Complete Blood Count w/diff [LAB.AMB] Time Frame: 3 Days, Location: None Selected Patient Instructions/Handouts: Gabapentin (By mouth), Cefdinir (By mouth), Pantoprazole (By mouth), Dehydration (DC), Urinary Tract Infection in Men (DC) Activity/Diet/Wound Care/Special Instructions: local wound care as previously advised
--- NOTE | 2019-11-10 01:21 | CDI ---
Documentation Clarification Form Date: 11/10/2019 From: Ashwin Anderson Phone: If you have a question about this query, please contact Meryl Govea Tariff Clerk at [phone] between 8am and 5pm. Admit Date: 11/07/2019 Discharge Date: 11/08/2019 Patient Name: Alonzo Adam Visit Number: [id number] ATTENTION: The Clinical Documentation Specialists (CDI) and [facility] Coding Staff appreciate your assistance in clarifying documentation. Please respond to the clarification below the line at the bottom and electronically sign. The CDI & [facility] Coding staff will review the response and follow-up if needed. Please note: Queries are made part of the Legal Health Record. If you have any questions, please contact the author of this message via ITS. Dear Gilmer Maki MD., Sepsis secondary to Acute UTI with Citrobacter freundii and Klebsiella pneumonia,in a patient with an SP catheter last changed on October 22 by home care nurse, cultures reporting Citrobacter freundii and Klebsiella pneumonia. History/Risk Factors: UTI, HTN, Hyperlipidemia, Paraplegia Sepsis secondary to Acute UTI in a patient with an SP catheter last changed on October 22 by home care nurse. Urine culture:Gram Neg Bacilli, Citrobacter freundii and Klebsiella pneumonia In your professional opinion, can you please clarify the etiology of the UTI, if known? ---->>Related Suprapubic catheter UTI not related to catheter Other condition, please specify Unable to determine MTDD
== END 2019-11-08 13:41 | disposition home health service (06) | DRG 698 ==
LOC: EC 10:01 → 4SSUR 12:50 → 5NMEDONC 15:12 → 6NMEDSUR 11-07 07:05 → OBSVTOIN 11-07 09:49
PROVIDERS: ADMIT Family Medicine; ATTEND Family Medicine
DX: T83.518A Infection and inflammatory reaction due to other urinary catheter, initial encounter (principal); A41.59 Other Gram-negative sepsis; L89.153 Pressure ulcer of sacral region, stage 3; L89.893 Pressure ulcer of other site, stage 3; G93.41 Metabolic encephalopathy; G61.0 Guillain-Barre syndrome; G82.20 Paraplegia, unspecified; N39.0 Urinary tract infection, site not specified; K21.9 Gastro-esophageal reflux disease without esophagitis; E78.5 Hyperlipidemia, unspecified; F32.9 Major depressive disorder, single episode, unspecified; F41.9 Anxiety disorder, unspecified; G20 Parkinson's disease; G40.909 Epilepsy, unspecified, not intractable, without status epilepticus; I10 Essential (primary) hypertension; E11.65 Type 2 diabetes mellitus with hyperglycemia; F02.80 Dementia in other diseases classified elsewhere, unspecified severity, without behavioral disturbance, psychotic disturbance, mood disturbance, and anxiety; G47.00 Insomnia, unspecified; E86.0 Dehydration; R62.7 Adult failure to thrive; Z87.440 Personal history of urinary (tract) infections; Z79.82 Long term (current) use of aspirin; Z79.4 Long term (current) use of insulin; Z79.899 Other long term (current) drug therapy; Z79.01 Long term (current) use of anticoagulants; Z86.718 Personal history of other venous thrombosis and embolism; Z87.891 Personal history of nicotine dependence; Z93.3 Colostomy status; Z86.14 Personal history of Methicillin resistant Staphylococcus aureus infection; Z86.19 Personal history of other infectious and parasitic diseases; Z95.1 Presence of aortocoronary bypass graft; Z98.890 Other specified postprocedural states; Z82.5 Family history of asthma and other chronic lower respiratory diseases; Z80.9 Family history of malignant neoplasm, unspecified; Z74.01 Bed confinement status
CPT/HCPCS: 36415; 71046; 80048; 80053; 81001; 82550; 83036; 83605; 83735; 85025; 87040; 87077; 87086; 87186; 93005; 96361; 96374; 99285

== ENCOUNTER → 2020-01-10 | Outpatient (CLI) | payer MEDICARE ==
--- NOTE | 2020-01-10 13:34 | US ---
"EXAMINATION TYPE: US venous doppler duplex LE BI DATE OF EXAM: 01/10/2020 11:48 AM COMPARISON: NONE CLINICAL HISTORY: E11.621 type 2 diabetes with foot ulcer. history of DVT, patient on blood thinner, diabetes, foot ulcer SIDE PERFORMED: bilateral TECHNIQUE: The lower extremity deep venous system is examined utilizing real time linear array sonog davidson with graded compression, doppler sonography and color-flow sonography. VESSELS IMAGED: External Iliac Vein (EIV) Common Femoral Vein Deep Femoral Vein Greater Saphenous Vein * Femoral Vein Popliteal Vein Small Saphenous Vein * Proximal Calf Veins (* superficial vessels) Right Leg: technical limitations due to patient's body habitus and large amount of edema. thready flow with partial compression femoral vein and popliteal vein Left Leg: technical limitations due to patient's body habitus and large amount of edema. thready f low with partial compression femoral vein and popliteal vein IMPRESSION: Exam is limited. Only partial compression although there is some thready flow noted as de scribed. Deep venous thrombosis not entirely excluded. Findings may be technical. A [place] level critical message alert has been initiated for Gilmer Lopez MD via the [employer] | Critical Results System on 01/10/2020 1:31 PM. This message alert has been sent to Gilmer woodruff MD via the preferences provided by the clinician for the receipt of Radiology Critical Findings. Yojana essage ID [id number]."
--- NOTE | 2020-01-17 11:47 | P.ARTDOP ---
Arterial Doppler LOWER EXTREMITY ARTERIAL DOPPLER: DATE OF SERVICE: 01/10/2020 Reason for study: Bilateral lower leg ulcers. Doppler waveforms: Multiphasic bilaterally throughout. Pulse volume recording: []. Pressure gradients: Mild femoral gradient on the right and toe gradient on the right Ankle-brachial indices: 0.94 on the right and 0.98 on the left. Toe brachial indices: 0.37 on the right, 0.76 on the left Impression: Possible mild right fem-pop disease. Probably not of clinical significance. Lower toe pressures more likely to be vasospastic phenomenon then distal disease. Clinical correlation recommended.
== END | disposition home or self-care (01) ==
LOC: RADUSWWP 01-07 10:20
PROVIDERS: ATTEND Family Medicine
DX: E11.621 Type 2 diabetes mellitus with foot ulcer (principal); E11.622 Type 2 diabetes mellitus with other skin ulcer; L89.513 Pressure ulcer of right ankle, stage 3; L89.313 Pressure ulcer of right buttock, stage 3; L89.523 Pressure ulcer of left ankle, stage 3; M62.3 Immobility syndrome (paraplegic)
CPT/HCPCS: 93922; 93970

== ENCOUNTER 2020-02-01 18:13 | Emergency (ER) | payer MEDICARE ==
[2020-02-01 18:20] VITALS: RESP 16
--- NOTE | 2020-02-01 19:19 | ED ---
Male Urogenital HPI - General Chief complaint: Urogenital Stated complaint: Blood in Catheter Time Seen by Provider: 02/01/20 18:20 Source: EMS Mode of arrival: EMS Limitations: physical limitation - History of Present Illness Initial comments: 64-year-old male paraplegic, presenting to the emergency department with chief complaint of blood in the catheter and penis. states the patient has had a suprapubic catheter for the past 3 years. She reports typically catheter is replaced on monthly basis. The patient's with Reports that a new home care nurse was present today in place the suprapubic catheter a lot further down that she typically does. She reports the patient almost immediately began to develop bleeding that was noticed in the catheter as well as some bleeding from the penis. She reports the blood has since clotted in the penis. She states the urine full catheter has since cleared up. Patient denies any pain. - Related Data Home Medications Medication Instructions Recorded Confirmed Apixaban [Eliquis] 5 mg PO BID 07/27/17 11/05/19 Carbidopa-Levodopa 10-100 mg 0.5 tab PO TID 04/06/18 11/05/19 [Sinemet 10-100 mg] Donepezil [Aricept] 5 mg PO HS 04/06/18 11/05/19 Losartan [Cozaar] 25 mg PO DAILY 11/05/19 11/05/19 methocarbamoL [Robaxin] 500 mg PO TID PRN 11/05/19 11/05/19 Previous Rx's Medication Instructions Recorded Cefdinir 300 mg PO Q12HR 7 Days #14 cap 11/08/19 Gabapentin [Neurontin] 100 mg PO TID #9 cap 11/08/19 Insulin Glargine/Lixisenatide 30 units SQ DAILY #0 11/08/19 [Soliqua 100 Unit-33 Mcg/ml Pen] Pantoprazole [Protonix] 40 mg PO DAILY #30 tablet. 11/08/19 Allergies Allergy/AdvReac Type Severity Reaction Status Date / Time No Known Allergies Allergy Verified 12/21/18 16:11 Review of Systems ROS Statement: Those systems with pertinent positive or pertinent negative responses have been documented in the HPI. ROS Other: All systems not noted in ROS Statement are negative. Past Medical History Past Medical History: Dementia, Diabetes Mellitus, Deep Vein Thrombosis (DVT), GERD/Reflux, Hyperlipidemia, Hypertension, Prostate Disorder, Seizure Disorder Additional Past Medical History / Comment(s): Spouse states pt has pulled out IVs and other equipment and has thrown himself out of bed in the past-recommends side rails be up at all times, DVT B/L LE, insomnia, osteomeylitis- coccyx wound has had hyerbaric tx and wound vac in the past- goes to [facility] every th , colostomy d/t coccyx wound, uti's, guillain barre syndrome, neurogenic bladder has suprapubic cath-last changed 04-11-18, paraplegia SINCE LAMINECTOMY FEB 15, 2017-PARALIZED WAIST DOWN, abd hernia, per pt has peg tube but is now able to eat, limited ROM with neck, NIDDM now diet controlled/possible bilateral foot neuropathy. stated "that the dementia pt has also has parkinson like symptoms". History of Any Multi-Drug Resistant Organisms: MRSA, VRE Date of last positivie culture/infection: 01/03/20 MRSA; 07/28/17 VRE MDRO Source:: LEG-MRSA & HIP VRE Past Surgical History: Back Surgery, Bowel Resection, Coronary Bypass/CABG, Heart Catheterization Additional Past Surgical History / Comment(s): LAMINECTOMY 02/15/17-has had to amy of 4 sx, 2016 CABG-5 vessel, piccs-none now, COLONOSCOPY, COLOSTOMY(was done d/t non healing coccyx wound. Supra PUBIC CATH (changed last 03-14-18), picc lines-since removed, peg tube. PICC Line Past Anesthesia/Blood Transfusion Reactions: Previous Problems w/ Anesthesia Additional Past Anesthesia/Blood Transfusion Reaction / Comment(s): when pt had 2 sx within a short time from each other ,he had diffiuclty waking up. Past blood transfusion-no reaction Past Psychological History: Anxiety, Depression Smoking Status: Former smoker Past Alcohol Use History: None Reported Past Drug Use History: None Reported - Past Family History Brother(s) Family Medical History: Cancer Mother Additional Family Medical History / Comment(s): emphysema Father Additional Family Medical History / Comment(s): emphysema General Exam Limitations: physical limitation General appearance: alert, in no apparent distress, obese Head exam: Present: atraumatic, normocephalic, normal inspection Eye exam: Present: normal appearance, PERRL, EOMI Pupils: Present: normal accommodation ENT exam: Present: normal exam, normal oropharynx, mucous membranes moist, TM's normal bilaterally, normal external ear exam Neck exam: Present: normal inspection, full ROM. Absent: tenderness Respiratory exam: Present: normal lung sounds bilaterally. Absent: respiratory distress, wheezes, rales Cardiovascular Exam: Present: regular rate, normal rhythm, normal heart sounds GI/Abdominal exam: Present: soft, other (Colostomy bag. Urostomy bag also noted with catheter in place. ) Extremities exam: Present: normal inspection, full ROM, normal capillary refill. Absent: tenderness Back exam: Present: normal inspection, full ROM. Absent: tenderness, CVA tenderness (R), CVA tenderness (L) Neurological exam: Present: alert, oriented X3 Psychiatric exam: Present: normal affect, normal mood Skin exam: Present: warm, dry, intact, normal color Course Vital Signs 02/01/20 18:17 Pulse Rate 79 Respiratory 16 Rate Blood Pressure 152/96 O2 Sat by Pulse 98 Oximetry Medical Decision Making - Medical Decision Making 64-year-old male presenting to emergency Department chief complaint of blood in the catheter bag as well as the penis. On physical examination, patient does have some residual blood on the penis. Hagan catheter seems to be draining well and yellow urine. No signs of gross hematuria in the Hagan itself. Case discussed with . Patient advised to follow-up with urologist. Return parameters were thoroughly discussed with patient is understanding and agreeable. Case discussed with physician. Disposition Clinical Impression: Gross hematuria Disposition: HOME SELF-CARE Condition: Stable Instructions (If sedation given, give patient instructions): Hematuria (ED) Additional Instructions: Follow-up with with urologist. Return to emergency department if symptoms w jacqueline. Is patient prescribed a controlled substance at d/c from ED?: No Referrals: Gilmer Lopez MD [Primary Care Provider] - 1-2 days Time of Disposition: 19:19
[2020-02-01 20:19] VITALS: BP 154/74; PULSE 88; TEMP 99
== END 2020-02-01 20:10 | disposition home or self-care (01) ==
LOC: EC 18:13
DX: R31.0 Gross hematuria (principal); Z87.891 Personal history of nicotine dependence; F03.90 Unspecified dementia, unspecified severity, without behavioral disturbance, psychotic disturbance, mood disturbance, and anxiety; I10 Essential (primary) hypertension; G40.909 Epilepsy, unspecified, not intractable, without status epilepticus; G47.00 Insomnia, unspecified; G20 Parkinson's disease; Z79.01 Long term (current) use of anticoagulants; Z79.899 Other long term (current) drug therapy; Z86.718 Personal history of other venous thrombosis and embolism; Z95.1 Presence of aortocoronary bypass graft; Z98.890 Other specified postprocedural states; Z93.3 Colostomy status; Z86.14 Personal history of Methicillin resistant Staphylococcus aureus infection
CPT/HCPCS: 99283

== ENCOUNTER 2020-06-02 19:56 | Emergency (ER) | payer MEDICARE ==
--- NOTE | 2020-06-02 21:12 | ED ---
General Adult HPI - General Chief complaint: Urogenital Stated complaint: catheter issues Time Seen by Provider: 06/02/20 20:05 Source: patient, EMS, RN notes reviewed Mode of arrival: EMS Limitations: altered mental status - History of Present Illness Initial comments: 64-year-old male with a past medical history of dementia, diabetes mellitus, hyperlipidemia, hypertension, GERD, paraplegia presents to the emergency room for a chief complaint of defective suprapubic catheter. Patient reports that for the past several hours he has not been getting urine drainage from his catheter. States his tried to flush it but it is not working. States he has this problem from time to time as he always has a lot of sediment in his urine. Patient denies any fevers. Is edematous and pressure but denies abdominal pain. states patient is not exhibiting any signs of urinary tract infection which usually include fever and altered mental status for him.Patient has no other complaints at this time including shortness of breath, chest pain, abdominal pain, nausea or vomiting, headache, or visual changes. - Related Data Home Medications Medication Instructions Recorded Confirmed Apixaban [Eliquis] 5 mg PO BID 07/27/17 11/05/19 Carbidopa-Levodopa 10-100 mg 0.5 tab PO TID 04/06/18 11/05/19 [Sinemet 10-100 mg] Donepezil [Aricept] 5 mg PO HS 04/06/18 11/05/19 Losartan [Cozaar] 25 mg PO DAILY 11/05/19 11/05/19 methocarbamoL [Robaxin] 500 mg PO TID PRN 11/05/19 11/05/19 Previous Rx's Medication Instructions Recorded Cefdinir 300 mg PO Q12HR 7 Days #14 cap 11/08/19 Gabapentin [Neurontin] 100 mg PO TID #9 cap 11/08/19 Insulin Glargine/Lixisenatide 30 units SQ DAILY #0 11/08/19 [Soliqua 100 Unit-33 Mcg/ml Pen] Pantoprazole [Protonix] 40 mg PO DAILY #30 tablet. 11/08/19 Allergies Allergy/AdvReac Type Severity Reaction Status Date / Time No Known Allergies Allergy Verified 12/21/18 16:11 Review of Systems ROS Statement: Those systems with pertinent positive or pertinent negative responses have been documented in the HPI. ROS Other: All systems not noted in ROS Statement are negative. Past Medical History Past Medical History: Dementia, Diabetes Mellitus, Deep Vein Thrombosis (DVT), GERD/Reflux, Hyperlipidemia, Hypertension, Prostate Disorder, Seizure Disorder Additional Past Medical History / Comment(s): Spouse states pt has pulled out IVs and other equipment and has thrown himself out of bed in the past-recommends side rails be up at all times, DVT B/L LE, insomnia, osteomeylitis- coccyx wound has had hyerbaric tx and wound vac in the past- goes to [facility] every , colostomy d/t coccyx wound, uti's, guillain barre syndrome, neurogenic bladder has suprapubic cath-last changed 04-11-18, paraplegia SINCE LAMINECTOMY FEB 15, 2017-PARALIZED WAIST DOWN, abd hernia, per pt has peg tube but is now able to eat, limited ROM with neck, NIDDM now diet controlled/possible bilateral foot neuropathy. stated "that the dementia pt has also has parkinson like symptoms". History of Any Multi-Drug Resistant Organisms: MRSA, VRE Date of last positivie culture/infection: 01/03/20 MRSA; 07/28/17 VRE MDRO Source:: LEG-MRSA & HIP VRE Past Surgical History: Back Surgery, Bowel Resection, Coronary Bypass/CABG, Heart Catheterization Additional Past Surgical History / Comment(s): LAMINECTOMY 02/15/17-has had total of 4 sx, 2015 CABG-5 vessel, piccs-none now, COLONOSCOPY, COLOSTOMY(was done d/t non healing coccyx wound. Supra PUBIC CATH (changed last 03-14-18), picc lines-since removed, peg tube. PICC Line Past Anesthesia/Blood Transfusion Reactions: Previous Problems w/ Anesthesia Additional Past Anesthesia/Blood Transfusion Reaction / Comment(s): when pt had 2 sx within a short time from each other ,he had diffiuclty waking up. Past blood transfusion-no reaction Past Psychological History: Anxiety, Depression Smoking Status: Former smoker Past Alcohol Use History: None Reported Past Drug Use History: None Reported - Past Family History Brother(s) Family Medical History: Cancer Mother Additional Family Medical History / Comment(s): emphysema Father Additional Family Medical History / Comment(s): emphysema General Exam Limitations: altered mental status General appearance: alert, in no apparent distress Head exam: Present: atraumatic, normocephalic, normal inspection Eye exam: Present: normal appearance, PERRL, EOMI. Absent: scleral icterus, conjunctival injection, periorbital swelling ENT exam: Present: normal exam, mucous membranes moist Neck exam: Present: normal inspection, full ROM. Absent: tenderness, meningismus, lymphadenopathy Respiratory exam: Present: normal lung sounds bilaterally. Absent: respiratory distress, wheezes, rales, rhonchi, stridor Cardiovascular Exam: Present: regular rate, normal rhythm, normal heart sounds. Absent: systolic murmur, diastolic murmur, rubs, gallop, clicks GI/Abdominal exam: Present: soft, normal bowel sounds, other (No abdominal tenderness. Suprapubic catheter in place at this time.). Absent: distended, tenderness, guarding, rebound, rigid Course Vital Signs 06/02/20 19:58 Temperature 98.0 F Pulse Rate 81 Respiratory 18 Rate Blood Pressure 131/76 O2 Sat by Pulse 98 Oximetry Procedures - Catheter Insertion (Urinary) Indications: replaced: fell out/removed/no longer functioning Preparation: Povidone-Iodine Type of Catheter Inserted: Hagan Catheter Balloon Size (mLs): 10 Topical Anesthesia Used: No Results: successfully catheterized-immediate flow Patient Tolerated Procedure: well, no complications Additional Comments: suprapubic catheter Medical Decision Making - Medical Decision Making Suprapubic catheter was removed and replaced. Immediate urine drainage achie windy. Patient is not exhibiting any typical signs of urinary tract infection for him such as fever or altered mental status. At this time discussed case with Dr. Burgos. Patient will be discharged home to follow up with urology. He does see Dr. ribeiro. He will return here for any worsening symptoms. Disposition Clinical Impression: Suprapubic catheter dysfunction Disposition: HOME SELF-CARE Condition: Good Instructions (If sedation given, give patient instructions): How to Care for Your Suprapubic Catheter (DC) Additional Instructions: Please follow up with primary care or urology. If patient develops fevers, confusion, or catheter stops working return to the emergency room. Is patient prescribed a controlled substance at d/c from ED?: No Referrals: Gilmer Lopez MD [Primary Care Provider] - 1-2 days Time of Disposition: 21:12
[2020-06-02 21:53] VITALS: BP 121/81; PULSE 75; RESP 16; TEMP 97.8
== END 2020-06-02 21:48 | disposition home or self-care (01) ==
LOC: EC 19:56
DX: T83.098A Other mechanical complication of other urinary catheter, initial encounter (principal); F03.90 Unspecified dementia, unspecified severity, without behavioral disturbance, psychotic disturbance, mood disturbance, and anxiety; I10 Essential (primary) hypertension; Z79.01 Long term (current) use of anticoagulants; Z79.899 Other long term (current) drug therapy; Z86.718 Personal history of other venous thrombosis and embolism; Z95.5 Presence of coronary angioplasty implant and graft; Z95.1 Presence of aortocoronary bypass graft; Z90.49 Acquired absence of other specified parts of digestive tract; Z87.891 Personal history of nicotine dependence; Z86.14 Personal history of Methicillin resistant Staphylococcus aureus infection
CPT/HCPCS: 51702; 99283

== ENCOUNTER 2020-08-23 19:07 | Inpatient (IN) | payer MEDICARE ==
[2020-08-23] MEDS ORDERED: SODIUM CHLORIDE 0.9% 1,000 ML IV STA ×2 (19:14)
--- NOTE | 2020-08-23 19:19 | ED ---
General Adult HPI - General Stated complaint: UTI Time Seen by Provider: 08/23/20 19:07 Source: patient, family, EMS, RN notes reviewed, old records reviewed Mode of arrival: EMS - History of Present Illness Initial comments: This is a 65-year-old L with a history of being confined to a bed with multiple medical issues including a suprapubic catheter and a recent UTI which she just finished Levaquin for was brought in by EMS today because of decreased activity decrease level of consciousness decreased oral intake for the past 2 days no reports of any nausea or vomiting. His output from his catheter appears be cloudy. Patient states has some sharp right sided flank pain and no history kidney stones - Related Data Home Medications Medication Instructions Recorded Confirmed Apixaban [Eliquis] 5 mg PO BID 07/27/17 11/05/19 Carbidopa-Levodopa 10-100 mg 0.5 tab PO TID 04/06/18 11/05/19 [Sinemet 10-100 mg] Donepezil [Aricept] 5 mg PO HS 04/06/18 11/05/19 Losartan [Cozaar] 25 mg PO DAILY 11/05/19 11/05/19 methocarbamoL [Robaxin] 500 mg PO TID PRN 11/05/19 11/05/19 Previous Rx's Medication Instructions Recorded Cefdinir 300 mg PO Q12HR 7 Days #14 cap 11/08/19 Gabapentin [Neurontin] 100 mg PO TID #9 cap 11/08/19 Insulin Glargine/Lixisenatide 30 units SQ DAILY #0 11/08/19 [Soliqua 100 Unit-33 Mcg/ml Pen] Pantoprazole [Protonix] 40 mg PO DAILY #30 tablet. 11/08/19 Allergies Allergy/AdvReac Type Severity Reaction Status Date / Time No Known Allergies Allergy Verified 08/23/20 19:19 Review of Systems ROS Statement: Those systems with pertinent positive or pertinent negative responses have been documented in the HPI. ROS Other: All systems not noted in ROS Statement are negative. Past Medical History Past Medical History: Dementia, Diabetes Mellitus, Deep Vein Thrombosis (DVT), GERD/Reflux, Hyperlipidemia, Hypertension, Prostate Disorder, Seizure Disorder Additional Past Medical History / Comment(s): Spouse states pt has pulled out IVs and other equipment and has thrown himself out of bed in the past-recommends side rails be up at all times, DVT B/L LE, insomnia, osteomeylitis- coccyx wound has had hyerbaric tx and wound vac in the past- goes to [facility] , colostomy d/t coccyx wound, uti's, guillain barre syndrome, neurogenic bladder has suprapubic cath-last changed 04-11-18, paraplegia SINCE LAMINECTOMY FEB 15, 2017-PARALIZED WAIST DOWN, abd hernia, per pt has peg tube but is now able to eat, limited ROM with neck, NIDDM now diet controlled/possible bilateral foot neuropathy. stated "that the dementia pt has also has parkinson like symptoms". History of Any Multi-Drug Resistant Organisms: MRSA, VRE Date of last positivie culture/infection: 08/12/20MRSA; 07/28/17 VRE MDRO Source:: Urine-MRSA; Hip- VRE Past Surgical History: Back Surgery, Bowel Resection, Coronary Bypass/CABG, Heart Catheterization Additional Past Surgical History / Comment(s): LAMINECTOMY 02/15/17-has had total of 4 sx, 2015 CABG-5 vessel, piccs-none now, COLONOSCOPY, COLOSTOMY(was done d/t non healing coccyx wound. Supra PUBIC CATH (changed last 03-14-18), picc lines-since removed, peg tube. PICC Line Past Anesthesia/Blood Transfusion Reactions: Previous Problems w/ Anesthesia Additional Past Anesthesia/Blood Transfusion Reaction / Comment(s): when pt had 2 sx within a short time from each other ,he had diffiuclty waking up. Past bloo d transfusion-no reaction Past Psychological History: Anxiety, Depression Smoking Status: Former smoker Past Alcohol Use History: None Reported Past Drug Use History: None Reported - Past Family History Brother(s) Family Medical History: Cancer Mother Additional Family Medical History / Comment(s): emphysema Father Additional Family Medical History / Comment(s): emphysema General Exam - General Exam Comments Initial Comments: This is a well-developed well-nourished awake alert though somewhat lethargic male General appearance: alert, in no apparent distress Head exam: Present: atraumatic, normocephalic, normal inspection Eye exam: Present: normal appearance, PERRL, EOMI. Absent: scleral icterus, conjunctival injection, periorbital swelling ENT exam: Present: mucous membranes dry Neck exam: Present: normal inspection. Absent: tenderness, meningismus, lymphadenopathy Respiratory exam: Present: normal lung sounds bilaterally. Absent: respiratory distress, wheezes, rales, rhonchi, stridor Cardiovascular Exam: Present: regular rate, normal rhythm, normal heart sounds. Absent: systolic murmur, diastolic murmur, rubs, gallop, clicks GI/Abdominal exam: Present: soft, tenderness (Right flank tenderness no guarding rebound masses or bruits), normal bowel sounds. Absent: distended, guarding, rebound, rigid Rectal exam: Present: deferred Extremities exam: Present: normal capillary refill. Absent: tenderness, pedal edema, joint swelling, calf tenderness Back exam: Present: full ROM Neurological exam: Present: alert, oriented X3, CN II-XII intact Psychiatric exam: Present: normal affect, normal mood Skin exam: Present: warm, dry, normal color, other (Pressure sores noted). Absent: intact, rash Course Vital Signs 08/23/20 19:12 Temperature 98.7 F Pulse Rate 69 Respiratory 16 Rate Blood Pressure 126/75 O2 Sat by Pulse 100 Oximetry EKG Findings - EKG Results: EKG: interpreted by ERMD, sinus rhythm (Sinus rhythm with sinus arrhythmia rate 62. Interval 188 QRS duration 114 QT since QTC 4:30/444 left exodeviation minimal voltage criteria for LVH nonspecific T-wave configuration.) Medical Decision Making - Medical Decision Making Patient is more responsive after IV fluids I did have a discussion with the patient is family and Dr. Amos the patient will be admitted. Antibiotic she'll be changed from Levaquin to Unasyn. - Lab Data Result diagrams: 08/23/20 19:28 08/23/20 19:28 Lab Results 08/23/20 08/23/20 08/23/20 Range/Units 19:28 19:28 19:28 WBC 5.8 (3.8-10.6) k/uL RBC 4.02 L (4.30-5.90) m/uL Hgb 11.7 L (13.0-17.5) gm/dL Hct 34.6 L (39.0-53.0) % MCV 86.0 (80.0-100.0) fL MCH 29.1 (25.0-35.0) pg MCHC 33.9 (31.0-37.0) g/dL RDW 14.1 (11.5-15.5) % Plt Count 214 (150-450) k/uL MPV 6.8 Neutrophils % 65 % Lymphocytes % 23 % Monocytes % 5 % Eosinophils % 5 % Basophils % 1 % Neutrophils # 3.8 (1.3-7.7) k/uL Lymphocytes # 1.3 (1.0-4.8) k/uL Monocytes # 0.3 (0-1.0) k/uL Eosinophils # 0.3 (0-0.7) k/uL Basophils # 0.0 (0-0.2) k/uL Sodium 136 L (137-145) mmol/L Potassium 3.4 L (3.5-5.1) mmol/L Chloride 102 (98-107) mmol/L Carbon Dioxide 28 (22-30) mmol/L Anion Gap 6 mmol/L BUN 18 (9-20) mg/dL Creatinine 0.98 (0.66-1.25) mg/dL Est GFR (CKD-EPI)AfAm >90 (>60 ml/min/1.73 sqM) Est GFR (CKD-EPI)NonAf 80 (>60 ml/min/1.73 sqM) Glucose 235 H (74-99) mg/dL Plasma Lactic Acid Stanley (0.7-2.0) mmol/L Calcium 8.2 L (8.4-10.2) mg/dL Magnesium 2.0 (1.6-2.3) mg/dL Total Bilirubin 0.4 (0.2-1.3) mg/dL AST 23 (17-59) U/L ALT 14 (4-49) U/L Alkaline Phosphatase 80 (38-126) U/L Creatine Kinase 54 L (55-170) U/L Total Protein 6.3 (6.3-8.2) g/dL Albumin 3.1 L (3.5-5.0) g/dL Urine Color Yellow Urine Appearance Turbid (Clear) Urine pH 6.5 (5.0-8.0) Ur Specific [place] 1.020 (1.001-1.035) Urine Protein 2+ H (Negative) Urine Glucose (UA) 3+ H (Negative) Urine Ketones Negative (Negative) Urine Blood Moderate H (Negative) Urine Nitrite Positive (Negative) Urine Bilirubin Negative (Negative) Urine Urobilinogen <2.0 (<2.0) mg/dL Ur Leukocyte Esterase Large H (Negative) Urine RBC 13 H (0-5) /hpf Urine WBC >182 H (0-5) /hpf Urine WBC Clumps Many H (None) /hpf Amorphous Sediment Rare H (None) /hpf Urine Bacteria Many H (None) /hpf 08/23/20 Range/Units 19:28 WBC (3.8-10.6) k/uL RBC (4.30-5.90) m/uL Hgb (13.0-17.5) gm/dL Hct (39.0-53.0) % MCV (80.0-100.0) fL MCH (25.0-35.0) pg MCHC (31.0-37.0) g/dL RDW (11.5-15.5) % Plt Count (150-450) k/uL MPV Neutrophils % % Lymphocytes % % Monocytes % % Eosinophils % % Basophils % % Neutrophils # (1.3-7.7) k/uL Lymphocytes # (1.0-4.8) k/uL Monocytes # (0-1.0) k/uL Eosinophils # (0-0.7) k/uL Basophils # (0-0.2) k/uL Sodium (137-145) mmol/L Potassium (3.5-5.1) mmol/L Chloride (98-107) mmol/L Carbon Dioxide (22-30) mmol/L Anion Gap mmol/L BUN (9-20) mg/dL Creatinine (0.66-1.25) mg/dL Est GFR (CKD-EPI)AfAm (>60 ml/min/1.73 sqM) Est GFR (CKD-EPI)NonAf (>60 ml/min/1.73 sqM) Glucose (74-99) mg/dL Plasma Lactic Acid Stanley 1.0 (0.7-2.0) mmol/L Calcium (8.4-10.2) mg/dL Magnesium (1.6-2.3) mg/dL Total Bilirubin (0.2-1.3) mg/dL AST (17-59) U/L ALT (4-49) U/L Alkaline Phosphatase (38-126) U/L Creatine Kinase (55-170) U/L Total Protein (6.3-8.2) g/dL Albumin (3.5-5.0) g/dL Urine Color Urine Appearance (Clear) Urine pH (5.0-8.0) Ur Specific [place] (1.001-1.035) Urine Protein (Negative) Urine Glucose (UA) (Negative) Urine Ketones (Negative) Urine Blood (Negative) Urine Nitrite (Negative) Urine Bilirubin (Negative) Urine Urobilinogen (<2.0) mg/dL Ur Leukocyte Esterase (Negative) Urine RBC (0-5) /hpf Urine WBC (0-5) /hpf Urine WBC Clumps (None) /hpf Amorphous Sediment (None) /hpf Urine Bacteria (None) /hpf - Radiology Data Radiology results: report reviewed (Imaging reviewed no acute findings.), image reviewed Disposition Clinical Impression: Urinary tract infection, Dehydration, Delirium due to general medical condition Disposition: ADMITTED IP TO THIS [facility] Condition: Fair Referrals: Gilmer Lopez MD [Primary Care Provider] - 1-2 days
[2020-08-23 19:50] LABS: Basophils % (A) 1 %; Eosinophils # (A) 0.3 k/uL (0-0.7); Eosinophils % (A) 5 %; HCT 34.6 % (39.0-53.0); HGB 11.7 gm/dL (13.0-17.5); Lymphocytes # (A) 1.3 k/uL (1.0-4.8); Lymphocytes % (A) 23 %; MCH 29.1 pg (25.0-35.0); MCHC 33.9 g/dL (31.0-37.0); Mean Platelet Volume 6.8; Monocytes # (A) 0.3 k/uL (0-1.0); Monocytes % (A) 5 %; Neutrophils # (A) 3.8 k/uL (1.3-7.7); Neutrophils % (A) 65 %; Platelet Count 214 k/uL (150-450); RBC 4.02 m/uL (4.30-5.90); RDW 14.1 % (11.5-15.5); WBC 5.8 k/uL (3.8-10.6)
--- NOTE | 2020-08-23 19:54 | XR ---
EXAMINATION TYPE: XR chest 1V portable DATE OF EXAM: 08/23/2020 COMPARISON: 11/05/2019. HISTORY: Increased weakness. TECHNIQUE: Single frontal view of the chest is obtained. FINDINGS: There is mild perihilar hazy opacities, compatible with atelectasis. No pleural effusion, or pneumothorax seen. Stable cardiomegaly and CABG. The osseous structures are intact. IMPRESSION: No acute process.
[2020-08-23 19:56] LABS: Amorphous Sediment,Urine Rare /hpf; Appearance,Urine Turbid (Clear); Bacteria,Urine Many /hpf; Bilirubin,Urine Negative (Negative); Blood,Urine Moderate (Negative); Color,Urine Yellow; Glucose,Urine (UA) 3+ (Negative); Ketones,Urine Negative (Negative); Leukocyte Esterase,Urine Large (Negative); Nitrite,Urine Positive (Negative); PH, Urine 6.5 (5.0-8.0); Protein,Urine 2+ (Negative); RBC,Urine 13 /hpf (0-5); Urobilinogen,Urine <2.0 mg/dL (<2.0); WBC,Urine >182 /hpf (0-5)
[2020-08-23 19:59] LABS: ALT 14 U/L (4-49); AST 23 U/L (17-59); African American GFR (CKD) >90 (>60 ml/min/1.73 sqM); Albumin 3.1 g/dL (3.5-5.0); Alkaline Phosphatase 80 U/L (38-126); Anion Gap 6 mmol/L; Blood Urea Nitrogen 18 mg/dL (9-20); Calcium 8.2 mg/dL (8.4-10.2); Carbon Dioxide 28 mmol/L (22-30); Chloride 102 mmol/L (98-107); Creatine Kinase 54 U/L (55-170); Glucose 235 mg/dL (74-99); Non-African American GFR(CKD) 80 (>60 ml/min/1.73 sqM); Potassium 3.4 mmol/L (3.5-5.1); Sodium 136 mmol/L (137-145); Total Bilirubin 0.4 mg/dL (0.2-1.3); Total Protein 6.3 g/dL (6.3-8.2)
[2020-08-23] MEDS ORDERED: LEVOFLOXACIN 750MG-D5W PMX 750 MG in DEXTROSE/WATER 1 150ML.BAG IVPB STA (19:59)
--- NOTE | 2020-08-23 20:18 | CT ---
EXAMINATION TYPE: CT abdomen pelvis wo con DATE OF EXAM: 08/23/2020 COMPARISON: None available. HISTORY: flank pain x2 days CT DLP: 2134.4 mGycm Automated exposure control for dose reduction was used. TECHNIQUE: Helical acquisition of images was performed from the lung bases through the pelvis. FINDINGS: LUNG BASES: No significant abnormality is appreciated. LIVER/GB: No significant abnormality is appreciated. PANCREAS: No significant abnormality is seen. SPLEEN: No significant abnormality is seen. ADRENALS: No significant abnormality is seen. KIDNEYS: No significant abnormality is seen. FREE AIR: No free air is visualized RETROPERITONEAL ADENOPATHY: None visualized REPRODUCTIVE ORGANS: No significant abnormality is seen URINARY BLADDER: Suprapubic catheter in place. Moderate irregular wall thickening with moderate intr aluminal gas. PELVIC ADENOPATHY: None visualized. OSSEOUS STRUCTURES: No acute abnormality is seen. Prior multilevel lumbar laminectomies. BOWEL: Left-sided colostomy. No bowel obstruction, free air or fluid. Mild anasarca is seen. OTHER: Right-sided decubitus ulcer. IMPRESSION: URINARY BLADDER WALL THICKENING WITH MODERATE GAS AND SUPRAPUBIC CATHETER IN PLACE. CORRELATE FOR GAS FORMING INFECTION. NO EVIDENCE OF OBSTRUCTIVE UROPATHY. Right-sided decubitus ulcer.
[2020-08-23] MEDS ORDERED: NALOXONE 0.4 MG/ML 1 ML VIAL IV PRN (20:41)
[2020-08-23] MEDS ORDERED: AMPICILLIN-SULBACTAM 1.5 GM in SODIUM CHLORIDE 0.9% 50 ML IVPB STA (20:43)
[2020-08-23] MEDS: SODIUM CHLORIDE 0.9% 1,000 ML IV SCH (22:42)
[2020-08-23] MEDS ORDERED: GABAPENTIN 100 MG CAP PO SCH (23:15)
[2020-08-23] MEDS: CARBIDOPA-LEVODOPA 10-100 MG 1 EACH TAB PO SCH (23:34)
[2020-08-23] MEDS: APIXABAN 5 MG TAB PO SCH (23:35)
[2020-08-23 23:36] LABS: Glucose,Whole Blood 211 mg/dL (75-99)
[2020-08-23] MEDS: INSULIN ASPART (NovoLOG) 100 UNIT/ML VIAL SQ SCH (23:48)
[2020-08-23] MEDS: GABAPENTIN 400 MG CAP PO SCH (23:48)
[2020-08-23] MEDS: methocarbamoL 500 MG TAB PO PRN (23:48)
[2020-08-24] MEDS: SODIUM CHLORIDE 0.9% 1,000 ML IV SCH ×2 (04:50→12:00)
[2020-08-24 07:12] LABS: Glucose,Whole Blood 197 mg/dL (75-99)
[2020-08-24] MEDS: GABAPENTIN 400 MG CAP PO SCH ×3 (08:28→20:33)
[2020-08-24] MEDS: CARBIDOPA-LEVODOPA 10-100 MG 1 EACH TAB PO SCH ×3 (08:28→20:33)
[2020-08-24] MEDS: APIXABAN 5 MG TAB PO SCH ×2 (08:28→20:34)
[2020-08-24] MEDS: hydroCHLOROthiazide 12.5 MG CAP PO SCH (08:28)
[2020-08-24] MEDS: LOSARTAN 25 MG TAB PO SCH (08:28)
[2020-08-24] MEDS: INSULIN DETEMIR (LEVEMIR) 100 UNIT/ML SYR SQ SCH (08:29)
[2020-08-24] MEDS: AMPICILLIN-SULBACTAM 3 GM in SODIUM CHLORIDE 0.9% 100 ML IVPB SCH ×3 (08:30→17:25)
[2020-08-24] MEDS: INSULIN ASPART (NovoLOG) 100 UNIT/ML VIAL SQ SCH ×4 (08:30→20:34)
[2020-08-24 10:44] LABS: Basophils % (A) 1 %; Eosinophils # (A) 0.3 k/uL (0-0.7); Eosinophils % (A) 5 %; HCT 33.1 % (39.0-53.0); HGB 11.5 gm/dL (13.0-17.5); Lymphocytes # (A) 0.8 k/uL (1.0-4.8); Lymphocytes % (A) 15 %; MCH 30.2 pg (25.0-35.0); MCHC 34.8 g/dL (31.0-37.0); MCV 86.9 fL (80.0-100.0); Mean Platelet Volume 6.5; Monocytes # (A) 0.3 k/uL (0-1.0); Monocytes % (A) 5 %; Neutrophils # (A) 3.9 k/uL (1.3-7.7); Neutrophils % (A) 72 %; Platelet Count 193 k/uL (150-450); WBC 5.3 k/uL (3.8-10.6)
[2020-08-24 11:02] LABS: African American GFR (CKD) >90 (>60 ml/min/1.73 sqM); Anion Gap 5 mmol/L; Blood Urea Nitrogen 15 mg/dL (9-20); Calcium 7.7 mg/dL (8.4-10.2); Carbon Dioxide 26 mmol/L (22-30); Chloride 105 mmol/L (98-107); Glucose 249 mg/dL (74-99); Non-African American GFR(CKD) 89 (>60 ml/min/1.73 sqM); Potassium 3.5 mmol/L (3.5-5.1); Sodium 136 mmol/L (137-145)
[2020-08-24 11:38] LABS: Glucose,Whole Blood 237 mg/dL (75-99)
--- NOTE | 2020-08-24 11:51 | P.HPIM ---
History of Present Illness H&P Date: 08/24/20 Chief Complaint: UTI, mental status change Mr. Adam is a 65-year-old paraplegic typically seen by Dr. Lopez who recently had suprapubic catheter changed in recent UTI which he was taking Levaquin for patient was brought in by EMS to the emergency room with decreased somewhat consciousness mental status change for the past 2 days no nausea no vomiting catheter output was cloudy thick some right-sided flank pain past history of kidney stones. On presentation this morning after cessation of Levaquin patient was started on Unasyn to 6 hours IV, patient had completely cleared from a mental status change process, awake alert oriented 3 Carlitos was who is a president is and very hungry because patient hadn't eaten in 2 days fluid consumption orally was significant anticipate complete recovery of urinary tract process waiting on cultures no fever was noted, no elevated white count was noted Lactic acid was 1.0 patient did have cloudy urine positive for protein and positive for glucose moderate blood and positive for nitrites and large white count large leukocyte esterase persistent with urinary tract infection without sepsis Suspect mental status changes for a result of Levaquin side effect Review of Systems Constitutional: Reports as per HPI Ears, nose, mouth and throat: Reports as per HPI Cardiovascular: Reports as per HPI Respiratory: Reports as per HPI Gastrointestinal: Reports as per HPI Genitourinary: Reports dysuria, Reports flank pain, Reports hematuria (Kidney stones by history) Musculoskeletal: Reports as per HPI (Known paraplegia) Integumentary: Reports wounds (Sacral decubitus ulcer currently under [facility]) Neurological: Reports spasticity (Paraplegia) Psychiatric: Reports as per HPI, Reports confusion (Mental status changes probably secondary to Levaquin) Hematologic/Lymphatic: Reports easy bleeding Allergic/Immunologic: Reports as per HPI Past Medical History Past Medical History: Dementia, Diabetes Mellitus, Deep Vein Thrombosis (DVT), Hyperlipidemia, Hypertension, Memory Impairment, Prostate Disorder Additional Past Medical History / Comment(s): Spouse states pt has pulled out IVs and other equipment and has thrown himself out of bed in the past-recommends side rails be up at all times, DVT B/L LE, insomnia, osteomeylitis- coccyx wound has had hyerbaric tx and wound vac in the past- goes to [facility] every , colostomy d/t coccyx wound, uti's, guillain barre syndrome, neurogenic bladder has suprapubic cath-last changed 04-11-18, paraplegia SINCE LAMINECTOMY FEB 15, 2017-PARALIZED WAIST DOWN, abd hernia, per pt has peg tube but is now able to eat, limited ROM with neck, NIDDM now diet controlled/possible bilateral foot neuropathy. stated "that the dementia pt has also has parkinson like symptoms". History of Any Multi-Drug Resistant Organisms: MRSA, VRE Date of last positivie culture/infection: 08/12/20MRSA; 07/28/17 VRE MDRO Source:: Urine-MRSA; Hip- VRE Past Surgical History: Back Surgery, Bowel Resection, Coronary Bypass/CABG, Heart Catheterization Additional Past Surgical History / Comment(s): LAMINECTOMY 02/15/17-has had total of 4 sx (cervical and lumbar), 2015 CABG-5 vessel, piccs-none now, COLONOSCOPY, COLOSTOMY(was done d/t non healing coccyx wound. Supra PUBIC CATH (changed last 03-14-18), picc lines-since removed, peg tube. PICC Line Past Anesthesia/Blood Transfusion Reactions: Previous Problems w/ Anesthesia Additional Past Anesthesia/Blood Transfusion Reaction / Comment(s): when pt had 2 sx within a short time from each other ,he had diffiuclty waking up. Past blood transfusion-no reaction Past Psychological History: Anxiety, Depression Additional Psychological History / Comment(s): pt lives at home w/spouse. He has [facility] home care once a week. Has hospital bed/air mattress, temitope lift but stated pt is currently bedridden -not to sit in chair d/t wounds coccyx/buttocks, turn every 2 hours(per ) Smoking Status: Former smoker Past Alcohol Use History: Rare Additional Past Alcohol Use History / Comment(s): started smoking at age 17 and QUIT SMOKING cigarettes 1992-started smoking cigars and , QUIT CIGARS 2009, no alcohol now Past Drug Use History: None Reported - Past Family History Brother(s) Family Medical History: Cancer Additional Family Medical History / Comment(s): Lung cancer Mother Additional Family Medical History / Comment(s): emphysema Father Additional Family Medical History / Comment(s): emphysema Medications and Allergies Home Medications Medication Instructions Recorded Confirmed Type Apixaban [Eliquis] 5 mg PO BID 07/27/17 08/24/20 History Carbidopa-Levodopa 10-100 mg 0.5 tab PO TID 04/06/18 08/24/20 History [Sinemet 10-100 mg] Losartan [Cozaar] 25 mg PO DAILY 11/05/19 08/24/20 History methocarbamoL [Robaxin] 500 mg PO TID PRN 11/05/19 08/24/20 History Gabapentin 800 mg PO Q8H 08/24/20 08/24/20 History Hydrochlorothiazide 12.5 mg PO DAILY 08/24/20 08/24/20 History [hydroCHLOROthiazide] Insulin Glargine/Lixisenatide 55 units SQ HS 08/24/20 08/24/20 History [Soliqua 100 Unit-33 Mcg/ml Pen] Melatonin 20 mg PO HS 08/24/20 08/24/20 History Allergies Allergy/AdvReac Type Severity Reaction Status Date / Time No Known Allergies Allergy Verified 08/24/20 07:39 Physical Exam Osteopathic Statement: *. No significant issues noted on an osteopathic structural exam other than those noted in the History and Physical/Consult. Vitals: Vital Signs Temp Pulse Pulse Resp BP BP Pulse Ox 08/24/20 10:10 117/75 08/24/20 07:41 97.8 F 71 18 90/48 98 08/24/20 02:12 73 128/81 93 L 08/23/20 22:42 97.6 F 72 17 127/60 97 08/23/20 21:47 88 16 125/70 100 08/23/20 20:19 62 08/23/20 19:12 98.7 F 69 16 126/75 100 Intake and Output 08/23/20 08/24/20 08/24/20 22:59 06:59 14:59 Output Total 600 200 Balance -600 -200 Output: Urine 600 Stool 200 Other: Voiding Method Indwelling Catheter Weight 135 kg General: [Patient awake, alert and oriented times 3. Patient in no acute distress.] HEENT: [PERRL. EOMI. No pharyngeal erythema or exudate.] Neck: [No adenopathy.] Cardiac: [Heart regular in rate and rhythm. No S3. No S4. No clicks, rubs. No murmur.] Lungs: [Clear to auscultation bilaterally.] Abdomen: [No mass. No organomegaly. Bowel sounds positive all 4 quadrants, suprapubic catheter in place Extremes: Paraplegia, spastic paralysis patient has use of upper extremes : Normal male genitalia, indwelling suprapubic catheter noted, urine milk E White Musculoskeletal: [No joint erythema, edema or tenderness.] Skin: Sacral decubitus ulcer, Neurologic: [No lateralizing deficits. CN II - XII grossly intact.] Lymphatic: [No adenopathy.] Results CBC & Chem 7: 08/24/20 10:25 08/23/20 19:28 Labs: Abnormal Lab Results - Last 24 Hours (Table) 08/23/20 08/23/20 08/23/20 Range/Units 19:28 19: 19: RBC 4.02 L (4.30-5.90) m/uL Hgb 11.7 L (13.0-17.5) gm/dL Hct 34.6 L (39.0-53.0) % Lymphocytes # (1.0-4.8) k/uL Sodium 136 L (137-145) mmol/L Potassium 3.4 L (3.5-5.1) mmol/L Glucose 235 H (74-99) mg/dL POC Glucose (mg/dL) (75-99) mg/dL Calcium 8.2 L (8.4-10.2) mg/dL Creatine Kinase 54 L (55-170) U/L Albumin 3.1 L (3.5-5.0) g/dL Urine Protein 2+ H (Negative) Urine Glucose (UA) 3+ H (Negative) Urine Blood Moderate H (Negative) Ur Leukocyte Esterase Large H (Negative) Urine RBC 13 H (0-5) /hpf Urine WBC >182 H (0-5) /hpf Urine WBC Clumps Many H (None) /hpf Amorphous Sediment Rare H (None) /hpf Urine Bacteria Many H (None) /hpf 08/23/20 08/24/20 08/24/20 Range/Units 23:35 07:11 10:25 RBC 3.80 L (4.30-5.90) m/uL Hgb 11.5 L (13.0-17.5) gm/dL Hct 33.1 L (39.0-53.0) % Lymphocytes # 0.8 L (1.0-4.8) k/uL Sodium (137-145) mmol/L Potassium (3.5-5.1) mmol/L Glucose (74-99) mg/dL POC Glucose (mg/dL) 211 H 197 H (75-99) mg/dL Calcium (8.4-10.2) mg/dL Creatine Kinase (55-170) U/L Albumin (3.5-5.0) g/dL Urine Protein (Negative) Urine Glucose (UA) (Negative) Urine Blood (Negative) Ur Leukocyte Esterase (Negative) Urine RBC (0-5) /hpf Urine WBC (0-5) /hpf Urine WBC Clumps (None) /hpf Amorphous Sediment (None) /hpf Urine Bacteria (None) /hpf Microbiology - Last 24 Hours (Table) 08/23/20 19:28 Urine Culture - Preliminary Urine,Voided Thrombosis Risk Factor Assmnt - DVT/VTE Prophylaxis DVT/VTE Prophylaxis: Pharmacologic Prophylaxis ordered (Patient is already on apixaban) - Choose All That Apply Any of the Below Risk Factors Present?: Yes Each Factor Represents 1 point: Age 41-60 years, Medical pt on bed rest, Obesity (BMI >25) Other Risk Factors: Yes Each Risk Factor Represents 2 Points: Patient confined to bed Each Risk Factor Represents 3 Points: History of DVT/PE Other congenital or acquired thrombophilia - If yes, enter type in comment: No Thrombosis Risk Factor Assessment Total Risk Factor Score: 8 Thrombosis Risk Factor Assessment Level: High Risk Assessment and Plan (1) Mental status change resolved Current Visit: Yes Status: Acute Code(s): Z86.59 - PERSONAL HISTORY OF OTHER MENTAL AND BEHAVIORAL DISORDERS SNOMED Code(s): 587479345 (2) Side effect of drug Current Visit: Yes Status: Acute Code(s): T88.7XXA - UNSP ADVERSE EFFECT OF DRUG OR MEDICAMENT, INIT ENCNTR SNOMED Code(s): 347326072 (3) Dehydration Current Visit: Yes Status: Acute Code(s): E86.0 - DEHYDRATION SNOMED Code(s): 22909278 (4) Delirium due to general medical condition Current Visit: Yes Status: Acute Code(s): F05 - DELIRIUM DUE TO KNOWN PHYSIOLOGICAL CONDITION SNOMED Code(s): 3065659 (5) UTI (urinary tract infection) Current Visit: Yes Status: Acute Code(s): N39.0 - URINARY TRACT INFECTION, SITE NOT SPECIFIED SNOMED Code(s): 59964152 (6) Altered mental status Current Visit: No Status: Acute Code(s): R41.82 - ALTERED MENTAL STATUS, UNSPECIFIED SNOMED Code(s): 212194225 Plan: Admitted to the hospital Mental status. Change resolved , probably secondary to Levaquin Urinary tract infection no fever, no elevated white count, positive red cells and white cells in urine Sacral decubitus ulcer currently under treatment and the wound center Paraplegia by history CT abdomen and pelvis suggested of bladder wall thickening with moderate gas suggestive of gas forming infection Cultures performed waiting on urinary cultures are preliminarily currently on IV Unasyn Infectious disease consultation case discussed with Urology consultation We'll follow closely Time with Patient: Greater than 30
[2020-08-24] MEDS ORDERED: GABAPENTIN 400 MG CAP PO SCH (12:00)
--- NOTE | 2020-08-24 13:07 | P.GSCN ---
History of Present Illness Consult date: 08/24/20 Reason for Consult: Suprapubic tube, UTI History of present illness: Mr. Adam is a 65-year-old paraplegic with history of chronic urinary re tention, being managed with a suprapubic catheter for the past 4 years. Presents to the hospital with altered mental status, he recently was diagnosed with a UTI and was placed PO antibiotics. Suprapubic catheter was last changed 2 weeks ago. He underwent a CT on presentation, the showed no evidence of kidney stones, but of note that it showed a thickened bladder wall. He denies any fevers/chills. Review of Systems - Constitutional Reports fatigue, Reports weakness, Reports weight loss, Denies fever - EENT Ears, nose, mouth and throat: Denies dysphagia - Cardiovascular Denies chest pain, Denies shortness of breath - Respiratory Denies cough, Denies 7 - Gastrointestinal Reports as per HPI - Genitourinary Reports urinary retention - Integumentary Denies rash, Denies unusual bruising - Neurological Denies headaches, Denies syncope Past Medical History Past Medical History: Dementia, Diabetes Mellitus, Deep Vein Thrombosis (DVT), Hyperlipidemia, Hypertension, Memory Impairment, Prostate Disorder Additional Past Medical History / Comment(s): Spouse states pt has pulled out IVs and other equipment and has thrown himself out of bed in the past-recommends side rails be up at all times, DVT B/L LE, insomnia, osteomeylitis- coccyx wound has had hyerbaric tx and wound vac in the past- goes to [facility] every , colostomy d/t coccyx wound, uti's, guillain barre syndrome, neurogenic bladder has suprapubic cath-last changed 04-11-18, paraplegia SINCE LAMINECTOMY FEB 15, 2017-PARALIZED WAIST DOWN, abd hernia, per pt has peg tube but is now able to eat, limited ROM with neck, NIDDM now diet controlled/possible bilateral foot neuropathy. stated "that the dementia pt has also has parkinson like symptoms". History of Any Multi-Drug Resistant Organisms: MRSA, VRE Year Discovered:: 08/12/20MRSA; 07/28/17 VRE MDRO Source:: Urine-MRSA; Hip- VRE Past Surgical History: Back Surgery, Bowel Resection, Coronary Bypass/CABG, Heart Catheterization Additional Past Surgical History / Comment(s): LAMINECTOMY 02/15/17-has had total of 4 sx (cervical and lumbar), 2016 CABG-5 vessel, piccs-none now, COLONOSCOPY, COLOSTOMY(was done d/t non healing coccyx wound. Supra PUBIC CATH (changed last 03-14-18), picc lines-since removed, peg tube. PICC Line Past Anesthesia/Blood Transfusion Reactions: Previous Problems w/ Anesthesia Additional Past Anesthesia/Blood Transfusion Reaction / Comm: when pt had 2 sx within a short time from each other ,he had diffiuclty waking up. Past blood transfusion-no reaction Past Psychological History: Anxiety, Depression Additional Psychological History / Comment(s): pt lives at home w/spouse. He has [facility] home care once a week. Has hospital bed/air mattress, temitope lift but stated pt is currently bedridden -not to sit in chair d/t wounds coccyx/buttocks, turn every 2 hours(per ) Smoking Status: Former smoker Past Alcohol Use History: Rare Additional Past Alcohol Use History / Comment(s): started smoking at age 17 and QUIT SMOKING cigarettes 1992-started smoking cigars and , QUIT CIGARS 2009, no alcohol now Past Drug Use History: None Reported - Past Family History Brother(s) Family Medical History: Cancer Additional Family Medical History / Comment(s): Lung cancer Mother Additional Family Medical History / Comment(s): emphysema Father Additional Family Medical History / Comment(s): emphysema Medications and Allergies Home Medications Medication Instructions Recorded Confirmed Type Apixaban [Eliquis] 5 mg PO BID 07/27/17 08/24/20 History Carbidopa-Levodopa 10-100 mg 0.5 tab PO TID 04/06/18 08/24/20 History [Sinemet 10-100 mg] Losartan [Cozaar] 25 mg PO DAILY 11/05/19 08/24/20 History methocarbamoL [Robaxin] 500 mg PO TID PRN 11/05/19 08/24/20 History Gabapentin 800 mg PO Q8H 08/24/20 08/24/20 History Hydrochlorothiazide 12.5 mg PO DAILY 08/24/20 08/24/20 History [hydroCHLOROthiazide] Insulin Glargine/Lixisenatide 55 units SQ HS 08/24/20 08/24/20 History [Soliqua 100 Unit-33 Mcg/ml Pen] Melatonin 20 mg PO HS 08/24/20 08/24/20 History Allergies Allergy/AdvReac Type Severity Reaction Status Date / Time No Known Allergies Allergy Verified 08/24/20 07:39 Surgical - Exam Vital Signs Temp Pulse Resp BP Pulse Ox 98.7 F 69 16 126/75 100 08/23/20 19:12 08/23/20 19:12 08/23/20 19:12 08/23/20 19:12 08/23/20 19:12 - General well developed, well nourished, no distress, no pain - Eyes PERRL, normal ocular movement - ENT normal nares, normal mucosa - Respiratory normal expansion, normal respiratory effort - Abdomen Suprapubic in place, draining cloudy urine Abdomen: soft, non tender - Genitourinary normal penis with no external lesions, testicles present - Psychiatric oriented to time, oriented to person, oriented to place Results - Labs 08/24/20 10:25 08/24/20 10:25 Abnormal Lab Results - Last 24 Hours (Table) 08/23/20 08/23/20 08/23/20 Range/Units 19:28 19:28 19:28 RBC 4.02 L (4.30-5.90) m/uL Hgb 11.7 L (13.0-17.5) gm/dL Hct 34.6 L (39.0-53.0) % Lymphocytes # (1.0-4.8) k/uL Sodium 136 L (137-145) mmol/L Potassium 3.4 L (3.5-5.1) mmol/L Glucose 235 H (74-99) mg/dL POC Glucose (mg/dL) (75-99) mg/dL Calcium 8.2 L (8.4-10.2) mg/dL Creatine Kinase 54 L (55-170) U/L Albumin 3.1 L (3.5-5.0) g/dL Urine Protein 2+ H (Negative) Urine Glucose (UA) 3+ H (Negative) Urine Blood Moderate H (Negative) Ur Leukocyte Esterase Large H (Negative) Urine RBC 13 H (0-5) /hpf Urine WBC >182 H (0-5) /hpf Urine WBC Clumps Many H (None) /hpf Amorphous Sediment Rare H (None) /hpf Urine Bacteria Many H (None) /hpf 08/23/20 08/24/20 08/24/20 Range/Units 23:35 07:11 10:25 RBC 3.80 L (4.30-5.90) m/uL Hgb 11.5 L (13.0-17.5) gm/dL Hct 33.1 L (39.0-53.0) % Lymphocytes # 0.8 L (1.0-4.8) k/uL Sodium (137-145) mmol/L Potassium (3.5-5.1) mmol/L Glucose (74-99) mg/dL POC Glucose (mg/dL) 211 H 197 H (75-99) mg/dL Calcium (8.4-10.2) mg/dL Creatine Kinase (55-170) U/L Albumin (3.5-5.0) g/dL Urine Protein (Negative) Urine Glucose (UA) (Negative) Urine Blood (Negative) Ur Leukocyte Esterase (Negative) Urine RBC (0-5) /hpf Urine WBC (0-5) /hpf Urine WBC Clumps (None) /hpf Amorphous Sediment (None) /hpf Urine Bacteria (None) /hpf 08/24/20 08/24/20 Range/Units 10:25 11:37 RBC (4.30-5.90) m/uL Hgb (13.0-17.5) gm/dL Hct (39.0-53.0) % Lymphocytes # (1.0-4.8) k/uL Sodium 136 L (137-145) mmol/L Potassium (3.5-5.1) mmol/L Glucose 249 H (74-99) mg/dL POC Glucose (mg/dL) 237 H (75-99) mg/dL Calcium 7.7 L (8.4-10.2) mg/dL Creatine Kinase (55-170) U/L Albumin (3.5-5.0) g/dL Urine Protein (Negative) Urine Glucose (UA) (Negative) Urine Blood (Negative) Ur Leukocyte Esterase (Negative) Urine RBC (0-5) /hpf Urine WBC (0-5) /hpf Urine WBC Clumps (None) /hpf Amorphous Sediment (None) /hpf Urine Bacteria (None) /hpf Microbiology - Last 24 Hours (Table) 06/19/21 19:28 Urine Culture - Preliminary Urine,Voided Diabetes panel 08/23/20 08/24/20 Range/Units 19:28 10:25 Sodium 136 L 136 L (137-145) mmol/L Potassium 3.4 L 3.5 (3.5-5.1) mmol/L Chloride 102 105 (98-107) mmol/L Carbon Dioxide 28 26 (22-30) mmol/L BUN 18 15 (9-20) mg/dL Creatinine 0.98 0.88 (0.66-1.25) mg/dL Glucose 235 H 249 H (74-99) mg/dL Calcium 8.2 L 7.7 L (8.4-10.2) mg/dL AST 23 (17-59) U/L ALT 14 (4-49) U/L Alkaline Phosphatase 80 (38-126) U/L Total Protein 6.3 (6.3-8.2) g/dL Albumin 3.1 L (3.5-5.0) g/dL Calcium panel 08/23/20 08/24/20 Range/Units 19:28 10:25 Calcium 8.2 L 7.7 L (8.4-10.2) mg/dL Albumin 3.1 L (3.5-5.0) g/dL Pituitary panel 08/23/20 08/24/20 Range/Units 19:28 10:25 Sodium 136 L 136 L (137-145) mmol/L Potassium 3.4 L 3.5 (3.5-5.1) mmol/L Chloride 102 105 (98-107) mmol/L Carbon Dioxide 28 26 (22-30) mmol/L BUN 18 15 (9-20) mg/dL Creatinine 0.98 0.88 (0.66-1.25) mg/dL Glucose 235 H 249 H (74-99) mg/dL Calcium 8.2 L 7.7 L (8.4-10.2) mg/dL Adrenal panel 08/23/20 08/24/20 Range/Units 19:28 10:25 Sodium 136 L 136 L (137-145) mmol/L Potassium 3.4 L 3.5 (3.5-5.1) mmol/L Chloride 102 105 (98-107) mmol/L Carbon Dioxide 28 26 (22-30) mmol/L BUN 18 15 (9-20) mg/dL Creatinine 0.98 0.88 (0.66-1.25) mg/dL Glucose 235 H 249 H (74-99) mg/dL Calcium 8.2 L 7.7 L (8.4-10.2) mg/dL Total Bilirubin 0.4 (0.2-1.3) mg/dL AST 23 (17-59) U/L ALT 14 (4-49) U/L Alkaline Phosphatase 80 (38-126) U/L Total Protein 6.3 (6.3-8.2) g/dL Albumin 3.1 L (3.5-5.0) g/dL Assessment and Plan Assessment: 65-year-old male with history of chronic urinary retention, been managed with a suprapubic catheter. Catheter was last changed in 2 weeks ago, he is admitted to the hospital with UTI. Infectious disease is on board for UTI, Urine cultures is pending. CT on presentation showed bladder wall thickness -We will change suprapubic catheter -Follow-up on urine culture, ID is onboard -Can f/u as an outpatient for cystoscopy given bladder wall thickening
--- NOTE | 2020-08-24 13:08 | P.PCN ---
Date of Procedure: 08/24/20 Preoperative Diagnosis: Urinary retention Postoperative Diagnosis: Same Procedure(s) Performed: Suprapubic tube change Implants: None Anesthesia: none Surgeon: Eddie Hook Estimated Blood Loss (ml): 1 Pathology: none sent Condition: stable Disposition: PACU Indications for Procedure: 65-year-old male admitted to the hospital with UTI, history of chronic retention be managed by suprapubic tube. Given his UTI will change his suprapubic tube catheter Description of Procedure: The previous 16-Slovak Hagan catheter was removed. Under sterile technique a new 16-Slovak catheter was placed, balloon was inflated with 10 mL's, there was a return of cloudy urine. Patient tolerated the procedure well
[2020-08-24 16:29] LABS: Glucose,Whole Blood 281 mg/dL (75-99)
[2020-08-24 20:26] LABS: Glucose,Whole Blood 281 mg/dL (75-99)
[2020-08-24] MEDS: methocarbamoL 500 MG TAB PO PRN (20:33)
[2020-08-24] MEDS ORDERED: VANCOMYCIN IV PER PHARMACY 1 EACH MISC MISCELLANE PRN (22:53)
[2020-08-24] MEDS ORDERED: INSULIN ASPART (NovoLOG) 100 UNIT/ML VIAL SQ SCH (23:14)
[2020-08-24] MEDS ORDERED: VANCOMYCIN 2,000 MG in SODIUM CHLORIDE 0.9% 500 ML 500 ML IVPB ONE (23:30)
[2020-08-25] MEDS: AMPICILLIN-SULBACTAM 3 GM in SODIUM CHLORIDE 0.9% 100 ML IVPB SCH ×5 (02:14→23:35)
[2020-08-25] MEDS: SODIUM CHLORIDE 0.9% 1,000 ML IV SCH ×2 (05:13→21:56)
[2020-08-25 07:10] LABS: Glucose,Whole Blood 196 mg/dL (75-99)
[2020-08-25] MEDS: LOSARTAN 25 MG TAB PO SCH (07:21)
[2020-08-25] MEDS: hydroCHLOROthiazide 12.5 MG CAP PO SCH (07:21)
[2020-08-25] MEDS: APIXABAN 5 MG TAB PO SCH ×2 (07:21→20:17)
[2020-08-25] MEDS: GABAPENTIN 400 MG CAP PO SCH ×3 (07:21→21:56)
[2020-08-25] MEDS: CARBIDOPA-LEVODOPA 10-100 MG 1 EACH TAB PO SCH ×3 (07:21→22:15)
[2020-08-25] MEDS: INSULIN ASPART (NovoLOG) 100 UNIT/ML VIAL SQ SCH ×4 (07:22→21:55)
[2020-08-25] MEDS: INSULIN DETEMIR (LEVEMIR) 100 UNIT/ML SYR SQ SCH (07:22)
--- NOTE | 2020-08-25 07:32 | CONS ---
CONSULTATION DATE OF SERVICE: 08/24/2020 REASON FOR CONSULTATION: Urinary tract infection. HISTORY OF PRESENT ILLNESS: The patient is a 65-year-old male with past medical history significant for urinary retention requiring a suprapubic catheter placement which is usually changed every week by the home care nurse. The patient also has a chronic nonhealing sacral pressure ulcer as well as bilateral lower extremity pressure ulcers. The patient was brought to the [facility] ER last evening with concern for decreased activity, decreased level of consciousness and decreased oral intake with symptoms getting worse over the last 2 days. No clear history of any fever, no vomiting or any diarrhea. The patient did have decreased output in his Hagan catheter that has been mostly more cloudy. The patient recently completed a course of oral Levaquin for UTI. The patient on presentation to the hospital was afebrile. The patient did have a normal white count of 5.8 and repeat is 5.3. Kidney function was normal. The patient did have significantly positive UA with large leukocyte esterase more than 1-2 WBCs. The patient did have a CT of abdomen and pelvis with evidence of bladder wall thickening with moderate gas in the suprapubic catheter. Correlate for gas-forming infection. Right-sided pressure ulcer. No mention of any osteomyelitis. The patient was started on Unasyn. The patient's Hagan catheter has been changed by Urology. Infectious Disease was consulted for further management of antibiotic therapy. REVIEW OF SYSTEMS: Positive points have been mentioned in HPI. Rest of systems are negative. PAST MEDICAL HISTORY: Dementia, diabetes mellitus, DVT, gastroesophageal reflux disease , hypertension, hyperlipidemia, seizure disorder, prostate disorder, previous history of MRSA infection. PAST SURGICAL HISTORY: Back surgery, bowel resection, coronary artery bypass grafting, heart catheterization, laminectomy and suprapubic catheter placement. SOCIAL HISTORY: Remote history of smoking. No drinking or drug use. FAMILY HISTORY: Both parents with history of emphysema. ALLERGIES: No known drug allergies. MEDICATIONS: The patient is currently on Unasyn, Eliquis, Sinemet, Neurontin, hydrochlorothiazide, NovoLog, Levemir, Cozaar, Robaxin. PHYSICAL EXAMINATION: VITAL SIGNS: Blood pressure 125/75 with a pulse of 50, temperature 98, he is 97% on room air. GENERAL DESCRIPTION: Patient is an elderly male lying in bed in no distress. No tachypnea or accessory muscles of respiration use. HEENT: Examination shows pallor, no scleral icterus. Oral mucous membrane is dry. NECK: Trachea central, no thyromegaly. LUNGS: Unlabored breathing, clear to auscultation anteriorly. No wheeze or crackle. HEART: S1-S2, regular rate and rhythm. ABDOMEN: Soft, no tenderness. No guarding or rigidity. No organomegaly. EXTREMITIES: No edema of the feet. SKIN: No rash or mass palpable. Examination of sacral area did have a stage III pressure ulcer to the right gluteal area with some foul smelling drainage. No significant surrounding redness. There was some slough at the base. The patient also had a stage II ulceration to bilateral posterior leg area with no slough tissue. No surrounding redness or any drainage. NEUROLOGICAL: Patient is awake, alert, oriented times three. Mood and affect normal. LABS: Hemoglobin 11.5, white count 5.3, BUN of 15, creatinine 0.88. Urine was positive. Culture now showing Staph aureus. DIAGNOSTIC IMPRESSION: 1. Patient admitted to the hospital with decreased activity, weakness and concerning for a symptomatic urinary tract infection in this patient who does have a chronic indwelling Hagan catheter suprapubic for urinary retention, last changed 2 weeks ago before presentation to the hospital. 2. Patient did have a stage III pressure ulcer to the right ischial area. 3. Stage II pressure ulceration of bilateral posterior leg area. No evidence of any cellulitis. PLAN: 1. Hagan catheter has been changed. Will obtain urine culture from new Hagan. 2. Urine showing Staph aureus with the previous history of MRSA infection, we will add vancomycin Pharmacy to dose target of 15. Continue Unasyn. 3. Local wound care to the wound to the right gluteal area with Santyl followed by moist dressing. 4. Local wound care to bilateral posterior leg wounds with dry Aquacel Silver dressing. 5. We will follow on clinical condition and culture to further adjust medication if needed. at the bedside. Questions and concerns were answered. MMODL / IJN: [id number] /
[2020-08-25 12:09] LABS: Glucose,Whole Blood 262 mg/dL (75-99)
--- NOTE | 2020-08-25 13:28 | PN ---
PROGRESS NOTE DATE OF SERVICE: 08/25/2020 REASON FOR FOLLOWUP: 1. UTI infection. 2. Multiple pressure ulcer. INTERVAL HISTORY: Patient is afebrile. The patient is currently breathing comfortably. The patient denies having any chest pain. No shortness of breath, cough, no abdominal pain or diarrhea. PHYSICAL EXAMINATION: Blood pressure 121/73 with a pulse of 65, temperature 97.4. He is 98% on room air. General description is an elderly male lying in in no distress. Respiratory system: Unlabored breathing. Clear to auscultation anteriorly. Heart S1, S2. Regular rate and rhythm. ABDOMEN: Soft, no tenderness. LABS: Hemoglobin 11.5, white count 5.3, BUN of 15, creatinine 0.88. Cultures showing presumptive Staph aureus. DIAGNOSTIC IMPRESSION/PLAN: 1. Patient with catheter associated urinary tract infection. Urine showing presumptive Staph aureus and previous history of MRSA infection. Patient is covered with vancomycin to continue. New UA will be obtained from the Hagan catheter which was placed yesterday. 2. Patient with bilateral leg wounds. Local care with Aquacel Silver dressing, keep the area off the pressure. 3. Patient with wound to the right gluteal area. Local wound care with Santyl followed by moist dressing. at the bedside. Questions were answered. MMODL / IJN: [id number] /
[2020-08-25] MEDS: COLLAGENASE 250 UNIT/GM OINTMENT 30 GM TUBE TOPICAL SCH (13:30)
[2020-08-25 13:37] VITALS: BMI 42.5
[2020-08-25] MEDS: VANCOMYCIN 2,000 MG in SODIUM CHLORIDE 0.9% 500 ML 500 ML IVPB SCH (14:09)
[2020-08-25 16:31] LABS: Glucose,Whole Blood 236 mg/dL (75-99)
--- NOTE | 2020-08-25 17:12 | P.PN ---
Subjective Progress Note Date: 08/25/20 Mr. Adam is a 65-year-old paraplegic typically seen by Dr. Lopez who recently had suprapubic catheter changed in recent UTI which he was taking Levaquin for patient was brought in by EMS to the emergency room with decreased somewhat consciousness mental status change for the past 2 days no nausea no vomiting catheter output was cloudy thick some right-sided flank pain past history of kidney stones. On presentation this morning after cessation of Levaquin patient was started on Unasyn to 6 hours IV, patient had completely cleared from a mental status change process, awake alert oriented 3 Carlitos was who is a president is and very hungry because patient hadn't eaten in 2 days fluid consumption orally was significant anticipate complete recovery of urinary tract process waiting on cultures no fever was noted, no elevated white count was noted Lactic acid was 1.0 patient did have cloudy urine positive for protein and positive for glucose moderate blood and positive for nitrites and large white count large leukocyte esterase persistent with urinary tract infection without sepsis Suspect mental status changes for a result of Levaquin side effect. 08/25/2020 maintained on IV antibiotics as per ID, IV fluid hydration. Suprapubic catheter tube changed yesterday. Urine cloudy/purulent. Preliminary Urine culture reporting presumptive staph aureus. Afebrile. Blood sugars uncontrolled in the 200s. Objective - Vital Signs Vital signs: Vital Signs Temp 97.7 F 08/25/20 14:00 Pulse 76 08/25/20 14:00 Resp 16 08/25/20 14:00 BP 137/83 08/25/20 14:00 Pulse Ox 97 08/25/20 14:00 Intake & Output 08/24/20 08/25/20 08/25/20 18:59 06:59 18:59 Output Total 450 1500 700 Balance -450 -1500 -700 Weight 138.5 kg 138.5 kg Output: Urine 100 1500 700 Stool 350 Other: Voiding Method Indwelling Catheter Indwelling Catheter Indwelling Catheter # Bowel Movements 500 - Exam General: [Patient awake, alert and oriented times 3. Patient in no acute distress.] HEENT: [PERRL. EOMI. No pharyngeal erythema or exudate.] Neck: [No adenopathy.] Cardiac: [Heart regular in rate and rhythm. No S3. No S4. No clicks, rubs. No murmur.] Lungs: [Clear to auscultation bilaterally.] Abdomen: [No mass. No organomegaly. Bowel sounds positive all 4 quadrants, suprapubic catheter in place Extremes: Paraplegia, spastic paralysis patient has use of upper extremes : indwelling suprapubic catheter noted, urine cloudy, purulent Skin: Sacral and bilateral posterior lateral ankles decubitus ulcers, STage III, refer to specific sizing per nursing documentation/pictures Neurologic: [No lateralizing deficits. CN II - XII grossly intact.] Microbiology 08/23/20 19:28 Urine,Voided Urine Culture - Preliminary Presumptive Staph aureus 08/23/20 19:28 Blood Blood Culture - Preliminary No Growth after 24 hours - Labs CBC & Chem 7: 08/24/20 10:25 08/24/20 10:25 Labs: Abnormal Lab Results - Last 24 Hours (Table) 08/24/20 08/25/20 08/25/20 Range/Units 20:24 07:08 12:06 POC Glucose (mg/dL) 281 H 196 H 262 H (75-99) mg/dL 08/25/20 Range/Units 16:26 POC Glucose (mg/dL) 236 H (75-99) mg/dL Microbiology - Last 24 Hours (Table) 08/23/20 19:28 Urine Culture - Preliminary Urine,Voided Presumptive Staph aureus 08/23/20 19:28 Blood Culture - Preliminary Blood No Growth after 24 hours Assessment and Plan Assessment: Acute metabolic encephalopathy secondary to acute UTI, related to chronic suprapubic catheter, present on admission. Cultures reporting presumptive staph aureus Acute toxic encephalopathy secondary to suspected side effect of drug, probably Levaquin Delirium multifactorial secondary to dementia, Parkinson's disease General medical debility Dehydration secondary to infection Stage III pressure ulcers of the right ischium and bilateral posterior lateral ankles. Chronic Urinary retention, suprapubic catheter changed 2 weeks prior to admission, status post suprapubic tube change with urology on 08/24/2020. Bladder wall thickness per CT, urology recommending outpatient cystoscopy Diabetes mellitus, hyperglycemia Hypertension Hyperlipidemia GERD History of seizure disorder on Keppra History of DVT on Eliquis Paraplegia Plan: Continue on current medication regime ,monitoring and symptomatic treatment. Obtain specialty mattress that facilitates turning, related to wounds-patient unable to turn self, he is a total transfer/bed ridden. Wound care with Santyl daily followed by moist gauze, and ABD. antibiotics as per infectious disease. Lantus dose increased, close monitoring of Accu-Cheks. Hemoglobin A1c ordered. PT/OT/social work; subacute rehab at discharge. The impression and plan of care has been dictated as directed. : I performed a history and examination of this patient, discussed the same with the dictator. I agree with the dictator's note ,documented as a scribe. Any additional findings or plans will be noted.
[2020-08-25] MEDS ORDERED: INSULIN DETEMIR (LEVEMIR) 100 UNIT/ML SYR SQ SCH (21:00)
[2020-08-25 21:29] LABS: Glucose,Whole Blood 281 mg/dL (75-99)
[2020-08-26] MEDS: VANCOMYCIN 2,000 MG in SODIUM CHLORIDE 0.9% 500 ML 500 ML IVPB SCH ×3 (00:25→23:23)
[2020-08-26 00:57] LABS: Hemoglobin A1C 9.2 % (4.0-6.0)
[2020-08-26] MEDS: AMPICILLIN-SULBACTAM 3 GM in SODIUM CHLORIDE 0.9% 100 ML IVPB SCH ×4 (05:14→23:23)
[2020-08-26 06:35] LABS: African American GFR (CKD) >90 (>60 ml/min/1.73 sqM); Anion Gap 3 mmol/L; Blood Urea Nitrogen 15 mg/dL (9-20); Calcium 7.7 mg/dL (8.4-10.2); Carbon Dioxide 26 mmol/L (22-30); Chloride 108 mmol/L (98-107); Glucose 245 mg/dL (74-99); Non-African American GFR(CKD) >90 (>60 ml/min/1.73 sqM); Potassium 3.5 mmol/L (3.5-5.1); Sodium 137 mmol/L (137-145)
[2020-08-26 07:00] LABS: Glucose,Whole Blood 250 mg/dL (75-99)
[2020-08-26] MEDS: INSULIN DETEMIR (LEVEMIR) 100 UNIT/ML SYR SQ SCH (07:53)
[2020-08-26] MEDS: CARBIDOPA-LEVODOPA 10-100 MG 1 EACH TAB PO SCH ×3 (07:53→20:36)
[2020-08-26] MEDS: LOSARTAN 25 MG TAB PO SCH (07:54)
[2020-08-26] MEDS: GABAPENTIN 400 MG CAP PO SCH ×3 (07:54→20:37)
[2020-08-26] MEDS: APIXABAN 5 MG TAB PO SCH ×2 (07:54→20:37)
[2020-08-26] MEDS: hydroCHLOROthiazide 12.5 MG CAP PO SCH (07:54)
[2020-08-26] MEDS: COLLAGENASE 250 UNIT/GM OINTMENT 30 GM TUBE TOPICAL SCH (07:55)
[2020-08-26] MEDS: INSULIN ASPART (NovoLOG) 100 UNIT/ML VIAL SQ SCH ×4 (07:57→20:30)
[2020-08-26 09:20] LABS: Basophils # (A) 0.04 X 10*3/uL (0.00-0.10); Basophils % (A) 0.8 %; Eosinophils # (A) 0.28 X 10*3/uL (0.04-0.35); Eosinophils % (A) 5.4 %; HCT 31.6 % (39.6-50.0); HGB 9.9 g/dL (13.0-17.0); Lymphocytes # (A) 1.34 X 10*3/uL (0.90-5.00); Lymphocytes % (A) 26.1 %; MCH 28.2 pg (27.0-32.0); MCHC 31.3 g/dL (32.0-37.0); Mean Platelet Volume 9.1 fL (9.5-12.2); Monocytes # (A) 0.37 X 10*3/uL (0.20-1.00); Monocytes % (A) 7.2 %; Neutrophils # (A) 3.05 X 10*3/uL (1.80-7.70); Neutrophils % (A) 59.3 %; Platelet Count 186 X 10*3/uL (140-440); RBC 3.51 X 10*6/uL (4.40-5.60); RDW 13.9 % (11.5-14.5); WBC 5.14 X 10*3/uL (4.50-10.00)
[2020-08-26 11:12] LABS: Appearance,Urine Cloudy (Clear); Bacteria,Urine Rare /hpf; Bilirubin,Urine Negative (Negative); Blood,Urine Small (Negative); Color,Urine Light Yellow; Glucose,Urine (UA) 3+ (Negative); Ketones,Urine Negative (Negative); Leukocyte Esterase,Urine Large (Negative); Mucus,Urine Rare /hpf; Nitrite,Urine Positive (Negative); PH, Urine 5.5 (5.0-8.0); Protein,Urine Trace (Negative); RBC,Urine 13 /hpf (0-5); Specific Gravity,Urine 1.012 (1.001-1.035); Urobilinogen,Urine <2.0 mg/dL (<2.0); WBC,Urine >182 /hpf (0-5)
[2020-08-26 11:26] LABS: Glucose,Whole Blood 247 mg/dL (75-99)
--- NOTE | 2020-08-26 13:49 | P.PN ---
Subjective Progress Note Date: 08/26/20 Mr. Adam is a 65-year-old paraplegic typically seen by Dr. Lopez who recently had suprapubic catheter changed in recent UTI which he was taking Levaquin for patient was brought in by EMS to the emergency room with decreased somewhat consciousness mental status change for the past 2 days no nausea no vomiting catheter output was cloudy thick some right-sided flank pain past history of kidney stones. On presentation this morning after cessation of Levaquin patient was started on Unasyn to 6 hours IV, patient had completely cleared from a mental status change process, awake alert oriented 3 Carlitos was who is a president is and very hungry because patient hadn't eaten in 2 days fluid consumption orally was significant anticipate complete recovery of urinary tract process waiting on cultures no fever was noted, no elevated white count was noted Lactic acid was 1.0 patient did have cloudy urine positive for protein and positive for glucose moderate blood and positive for nitrites and large white count large leukocyte esterase persistent with urinary tract infection without sepsis Suspect mental status changes for a result of Levaquin side effect. 08/25/2020 maintained on IV antibiotics as per ID, IV fluid hydration. Suprapubic catheter tube changed yesterday. Urine cloudy/purulent. Preliminary Urine culture reporting presumptive staph aureus. Afebrile. Blood sugars uncontrolled in the 200s. 08/26/2020 continue on IV fluid hydration.maintained on vancomycin as per ID .repeat UA/ culture in progress. Feels better. Urine clearing up with minimal sediment. Social work at bedside stating [employer] authorization pending. Hemoglobin 9.9. Potassium 3.5. Objective - Vital Signs Vital signs: Vital Signs Temp 97.8 F 08/26/20 08:00 Pulse 59 L 08/26/20 08:00 Resp 18 08/26/20 08:00 BP 134/77 08/26/20 08:00 Pulse Ox 97 08/26/20 08:00 Intake & Output 08/25/20 08/26/20 08/26/20 18:59 06:59 18:59 Output Total 1600 2600 300 Balance -1600 -2600 -300 Weight 138.5 kg 124.738 kg Output: Urine 1600 1500 300 Stool 1100 Other: Voiding Method Indwelling Catheter Indwelling Catheter Indwelling Catheter # Bowel Movements 500 - Exam General: Alert and oriented 3, sitting up on specialty bed, no acute distress. HEENT: [PERRL. EOMI. No pharyngeal erythema or exudate.] Neck: [No adenopathy.] Cardiac: [Heart regular in rate and rhythm. No S3. No S4. No clicks, rubs. No murmur.] Lungs: [Clear to auscultation bilaterally.] Abdomen: [No mass. No organomegaly. Bowel sounds positive all 4 quadrants, suprapubic catheter in place Extremes: Paraplegia, spastic paralysis patient has use of upper extremitites. Skin: Sacral and bilateral posterior lateral ankles decubitus ulcers, STage III, refer to specific sizing per nursing documentation/pictures Neurologic: [No lateralizing deficits. CN II - XII grossly intact.] Microbiology 08/23/20 19:28 Urine,Voided Urine Culture - Final Methicillin resist S. aureus 08/23/20 19:28 Blood Blood Culture - Preliminary No Growth after 48 hours - Labs CBC & Chem 7: 08/26/20 05:32 08/26/20 05:32 Labs: Abnormal Lab Results - Last 24 Hours (Table) 08/25/20 08/25/20 08/25/20 Range/Units 10:25 12:06 16:26 RBC (4.40-5.60) X 10*6/uL Hgb (13.0-17.0) g/dL Hct (39.6-50.0) % MCHC (32.0-37.0) g/dL MPV (9.5-12.2) fL Immature Gran # (0.00-0.04) X 10*3/uL Chloride (98-107) mmol/L Glucose (74-99) mg/dL POC Glucose (mg/dL) 262 H 236 H (75-99) mg/dL Hemoglobin A1c 9.2 H (4.0-6.0) % Calcium (8.4-10.2) mg/dL 08/25/20 08/26/20 08/26/20 Range/Units 21:27 05:32 05:32 RBC 3.51 L (4.40-5.60) X 10*6/uL Hgb 9.9 L (13.0-17.0) g/dL Hct 31.6 L (39.6-50.0) % MCHC 31.3 L (32.0-37.0) g/dL MPV 9.1 L (9.5-12.2) fL Immature Gran # 0.06 H (0.00-0.04) X 10*3/uL Chloride 108 H (98-107) mmol/L Glucose 245 H (74-99) mg/dL POC Glucose (mg/dL) 281 H (75-99) mg/dL Hemoglobin A1c (4.0-6.0) % Calcium 7.7 L (8.4-10.2) mg/dL 08/26/20 Range/Units 06:59 RBC (4.40-5.60) X 10*6/uL Hgb (13.0-17.0) g/dL Hct (39.6-50.0) % MCHC (32.0-37.0) g/dL MPV (9.5-12.2) fL Immature Gran # (0.00-0.04) X 10*3/uL Chloride (98-107) mmol/L Glucose (74-99) mg/dL POC Glucose (mg/dL) 250 H (75-99) mg/dL Hemoglobin A1c (4.0-6.0) % Calcium (8.4-10.2) mg/dL Microbiology - Last 24 Hours (Table) 08/23/20 19:28 Urine Culture - Final Urine,Voided Methicillin resist S. aureus 08/23/20 19:28 Blood Culture - Preliminary Blood No Growth after 48 hours Assessment and Plan Assessment: Acute metabolic encephalopathy secondary to acute UTI, related to chronic suprapubic catheter, present on admission. Cultures reporting presumptive staph aureus Acute toxic encephalopathy secondary to suspected side effect of drug, probably Levaquin Delirium multifactorial secondary to dementia, Parkinson's disease General medical debility Dehydration secondary to infection Stage III pressure ulcers of the right ischium and bilateral posterior lateral ankles. Chronic Urinary retention, suprapubic catheter changed 2 weeks prior to admissi on, status post suprapubic tube change with urology on 08/24/2020. Bladder wall thickness per CT, urology recommending outpatient cystoscopy Diabetes mellitus, hyperglycemia Hypertension Hyperlipidemia GERD History of seizure disorder on Keppra History of DVT on Eliquis Paraplegia Plan: Continue on current medication regime ,monitoring and symptomatic treatment. Repeat UA/culture in progress Wound care with Eliuyl daily. Antibiotics as per infectious disease. Lantus dose further increased, for tighter coverage, close monitoring of Accu-Cheks. PT/OT/social work; [facility] at discharge. [employer] authorization pending as per social work. The impression and plan of care has been dictated as directed. : I performed a history and examination of this patient, discussed the same with the dictator. I agree with the dictator's note ,documented as a scribe. Any additional findings or plans will be noted.
[2020-08-26] MEDS: SODIUM CHLORIDE 0.9% 1,000 ML IV SCH (16:22)
[2020-08-26 16:30] LABS: Glucose,Whole Blood 245 mg/dL (75-99)
[2020-08-26 20:16] LABS: Glucose,Whole Blood 241 mg/dL (75-99)
[2020-08-26] MEDS ORDERED: INSULIN DETEMIR (LEVEMIR) 100 UNIT/ML SYR SQ SCH (21:00)
--- NOTE | 2020-08-27 04:39 | PN ---
PROGRESS NOTE DATE OF SERVICE: 08/26/2020 REASON FOR FOLLOWUP: 1. MRSA catheter associated urinary tract infection. 2. Multiple pressure ulcers. INTERVAL HISTORY: The patient is afebrile, has been breathing comfortably. No chest pain or cough. No abdominal pain or diarrhea. PHYSICAL EXAMINATION: Blood pressure 136/79, pulse of 71, temperature 98. He is 98% on room air. General description is an elderly male lying in bed in no distress. Respiratory system: Unlabored breathing, decreased breath sounds. No wheeze. Heart: S1, S2. Regular rate. Abdomen: Soft, no tenderness. LABS: Repeat culture still positive. DIAGNOSTIC IMPRESSION AND PLAN: 1. Patient with MRSA catheter associated urinary tract infection with significant positive drainage of the Hagan catheter. The patient may benefit from a short course of IV vancomycin on discharge for a PICC line should be placed. 2. Multiple pressure ulceration leg and the gluteal area. Local wound care to continue as ordered. at the bedside. Questions were answered. MMODL / IJN: [id number] /
[2020-08-27] MEDS: AMPICILLIN-SULBACTAM 3 GM in SODIUM CHLORIDE 0.9% 100 ML IVPB SCH ×2 (05:40→11:14)
[2020-08-27 06:44] LABS: Glucose,Whole Blood 198 mg/dL (75-99)
[2020-08-27] MEDS: CARBIDOPA-LEVODOPA 10-100 MG 1 EACH TAB PO SCH ×2 (07:22→15:40)
[2020-08-27] MEDS: LOSARTAN 25 MG TAB PO SCH (07:22)
[2020-08-27] MEDS: hydroCHLOROthiazide 12.5 MG CAP PO SCH (07:22)
[2020-08-27] MEDS: GABAPENTIN 400 MG CAP PO SCH ×2 (07:22→15:40)
[2020-08-27] MEDS: INSULIN ASPART (NovoLOG) 100 UNIT/ML VIAL SQ SCH ×2 (07:23→12:30)
[2020-08-27] MEDS: APIXABAN 5 MG TAB PO SCH (07:23)
[2020-08-27] MEDS: COLLAGENASE 250 UNIT/GM OINTMENT 30 GM TUBE TOPICAL SCH (07:23)
[2020-08-27] MEDS: INSULIN DETEMIR (LEVEMIR) 100 UNIT/ML SYR SQ SCH (07:24)
[2020-08-27] MEDS: SODIUM CHLORIDE 0.9% 1,000 ML IV SCH (07:24)
[2020-08-27 09:21] LABS: Basophils # (A) 0.05 X 10*3/uL (0.00-0.10); Basophils % (A) 0.9 %; Eosinophils # (A) 0.27 X 10*3/uL (0.04-0.35); HCT 31.9 % (39.6-50.0); HGB 10.2 g/dL (13.0-17.0); Lymphocytes # (A) 1.18 X 10*3/uL (0.90-5.00); Lymphocytes % (A) 22.1 %; MCH 28.6 pg (27.0-32.0); MCV 89.4 fL (80.0-97.0); Mean Platelet Volume 9.3 fL (9.5-12.2); Monocytes # (A) 0.37 X 10*3/uL (0.20-1.00); Monocytes % (A) 6.9 %; Neutrophils # (A) 3.42 X 10*3/uL (1.80-7.70); Platelet Count 187 X 10*3/uL (140-440); RBC 3.57 X 10*6/uL (4.40-5.60); RDW 13.8 % (11.5-14.5); WBC 5.35 X 10*3/uL (4.50-10.00)
--- NOTE | 2020-08-27 10:30 | P.DS ---
Providers Date of admission: 08/23/20 20:41 Expected date of discharge: 08/27/20 Attending physician: Boogie mAos Consults: 08/23/20 23:15 Consult Physician Routine Consulting Provider: Mary Anne Hansen Consult Reason/Comments: urosepsis Do you want consulting provider notified?: Yes, Notify in am 08/24/20 11:38 Consult Physician Routine Consulting Provider: Roge Landers Consult Reason/Comments: Suprapubic catheter possible bladder wall infection Do you want consulting provider notified?: Yes Primary care physician: Gilmer Lopez Hospital Course: Final Diagnoses: Acute metabolic encephalopathy secondary to acute UTI with MRSA, related to chronic suprapubic catheter, present on admission. Repeat culture finalizing. Acute toxic encephalopathy secondary to suspected side effect of drug, probably Levaquin Delirium multifactorial secondary to dementia, Parkinson's disease General medical debility Dehydration secondary to infection Stage III pressure ulcers of the right ischium and bilateral posterior lateral ankles. Chronic Urinary retention, suprapubic catheter changed 2 weeks prior to admission, status post suprapubic tube change with urology on 08/24/2020. Bladder wall thickness per CT, urology recommending outpatient cystoscopy Diabetes mellitus, hyperglycemia Hypertension Hyperlipidemia GERD History of seizure disorder on [facility] History of DVT on [facility] Hospital course:Mr. Adam is a 65-year-old paraplegic typically seen by Dr. Lopez who recently had suprapubic catheter changed in recent UTI which he was taking Levaquin for patient was brought in by EMS to the emergency room with decreased somewhat consciousness mental status change for the past 2 days no nausea no vomiting catheter output was cloudy thick some right-sided flank pain past history of kidney stones. On presentation this morning after cessation of Levaquin patient was started on Unasyn to 6 hours IV, patient had completely cleared from a mental status change process, awake alert oriented 3 Carlitos was who is a president is and very hungry because patient hadn't eaten in 2 days fluid consumption orally was significant anticipate complete recovery of urinary tract process waiting on cultures no fever was noted, no elevated white count was noted Lactic acid was 1.0 patient did have cloudy urine positive for protein and positive for glucose moderate blood and positive for nitrites and large white count large leukocyte esterase persistent with urinary tract infection without sepsis Suspect mental status changes for a result of Levaquin side effect. 08/25/2020 maintained on IV antibiotics as per ID, IV fluid hydration. Suprapubic catheter tube changed yesterday. Urine cloudy/purulent. Preliminary Urine culture reporting presumptive staph aureus. Afebrile. Blood sugars uncontrolled in the 200s. 08/26/2020 continue on IV fluid hydration.maintained on vancomycin as per ID .repeat UA/ culture in progress. Feels better. Urine clearing up with minimal sediment. Social work at bedside stating [employer] authorization pending. Hemoglobin 9.9. Potassium 3.5. Significant clinical improvement. Patient will be discharged to [facility] rehab. today in a stable condition with guarded prognosis, pending PICC line placement, DC IV antibiotics and clearance from ID. Microbiology 08/23/20 19:28 Blood Blood Culture - Preliminary No Growth after 72 hours 08/26/20 10:45 Urine,Voided Urine Culture - Preliminary 08/23/20 19:28 Urine,Voided Urine Culture - Final Methicillin resist S. aureus The impression and plan of care has been dictated as directed. : I performed a history and examination of this patient, discussed the same with the dictator. I agree with the dictator's note ,documented as a scribe. Any additional findings or plans will be noted. Patient Condition at Discharge: Stable Plan - Discharge Summary Discharge Rx Participant: No New Discharge Prescriptions: New Gabapentin [Neurontin] 800 mg PO TID #9 cap Collagenase [Santyl] 1 applic TOPICAL DAILY applic Continue Apixaban [Eliquis] 5 mg PO BID Carbidopa-Levodopa 10-100 mg [Sinemet 10-100 mg] 0.5 tab PO TID methocarbamoL [Robaxin] 500 mg PO TID PRN PRN Reason: Pain Losartan [Cozaar] 25 mg PO DAILY Insulin Glargine/Lixisenatide [Soliqua 100 Unit-33 Mcg/ml Pen] 55 units SQ HS Melatonin 20 mg PO HS Hydrochlorothiazide [hydroCHLOROthiazide] 12.5 mg PO DAILY Discontinued Gabapentin 800 mg PO Q8H Discharge Medication List Apixaban [Eliquis] 5 mg PO BID 07/27/17 [History] Carbidopa-Levodopa 10-100 mg [Sinemet 10-100 mg] 0.5 tab PO TID 04/06/18 [History] Losartan [Cozaar] 25 mg PO DAILY 11/05/19 [History] methocarbamoL [Robaxin] 500 mg PO TID PRN 11/05/19 [History] Hydrochlorothiazide [hydroCHLOROthiazide] 12.5 mg PO DAILY 08/24/20 [History] Insulin Glargine/Lixisenatide [Soliqua 100 Unit-33 Mcg/ml Pen] 55 units SQ HS 08/24/20 [History] Melatonin 20 mg PO HS 08/24/20 [History] Collagenase [Santyl] 1 applic TOPICAL DAILY applic 08/27/20 [Rx] Gabapentin [Neurontin] 800 mg PO TID #9 cap 08/27/20 [Rx] Follow up Appointment(s)/Referral(s): Eddie Hook MD [STAFF PHYSICIAN] - 4 Weeks (To be seen for a cystoscopy. would like to make appointment to coordinate with wound care appointment. ) Mojgan Agosto Senior [NON-STAFF] - Gilmer Lopez MD [Primary Care Provider] - 3 Days Activity/Diet/Wound Care/Special Instructions: [facility] CBC, BMP in 3 days Wound care as previously ordered to coccyx and bilateral ankles.
[2020-08-27] MEDS: VANCOMYCIN 2,000 MG in SODIUM CHLORIDE 0.9% 500 ML 500 ML IVPB SCH (10:37)
[2020-08-27] MEDS ORDERED: VANCOMYCIN TROUGH DUE 1 EACH MISC MISCELLANE ONE (11:00)
[2020-08-27 11:50] LABS: Glucose,Whole Blood 265 mg/dL (75-99)
[2020-08-27 14:14] LABS: African American GFR (CKD) 89.9 (60.0-200.0); Anion Gap 6.3 mmol/L (4.00-12.00); Calcium 7.7 mg/dL (8.7-10.3); Carbon Dioxide 24.7 mmol/L (21.6-31.8); Non-African American GFR(CKD) 77.5 (60.0-200.0); Potassium 3.4 mmol/L (3.5-5.5)
[2020-08-27] MEDS ORDERED: LIDOCAINE 1% INJ 10MG/ML (20 ML MDV) ONE (14:14)
[2020-08-27] MEDS ORDERED: LIDOCAINE 1% INJ 10MG/ML (20 ML MDV) SQ ONE (14:19)
--- NOTE | 2020-08-27 15:12 | IR ---
EXAMINATION TYPE: IR cvc insert >=5 years DATE OF EXAM: 08/27/2020 COMPARISON: NONE CLINICAL HISTORY: Infection Needs long-term intravenous access for antibiotics. PROCEDURE: Hand hygiene obtained with soap and water and alcohol-based hand rub. After informed consent, the skin overlying the left basilic vein was localized with ultrasound and no kavitha to be compressible and patent. An ultrasound image was obtained and submitted on the patient's c montoya. The overlying skin was prepped and draped and Lidocaine was used for local anesthesia. A skin gerda was made with a scalpel. Access was gained to the vein under ultrasound guidance with a 21 gau ge needle and a 0.018 inch wire was advanced. Access site was dilated with Peel-Away sheath and cath eter tailored to the appropriate length and advanced such that the distal tip is at the cavoatrial ju nction. Spot image was obtained verifying placement. Catheter was fixed to the skin and a sterile d ressing was placed following hemostasis. Catheter was aspirated and flushed with saline. Patient wa s discharged in stable condition without complication. Maximal barrier technique is utilized. Ultras ound image is documented on the chart. Ultrasound used with sterile technique. Fluoro time and fluoroscopic images submitted to document procedure: 0.2 minutes fluoroscopy time, 20 intraoperative C-arm images document the procedure IMPRESSION: STATUS POST ULTRASOUND AND FLUOROSCOPIC GUIDED PICC LINE PLACEMENT, READY FOR USE. THIS PROCEDURE WAS PERFORMED BY THE UNDERSIGNED.
[2020-08-27 15:33] VITALS: BP 139/62; PULSE 71; RESP 18; TEMP 97.7
--- NOTE | 2020-08-27 17:00 | PN ---
PROGRESS NOTE DATE OF SERVICE: 08/27/2020 REASON FOR FOLLOWUP: 1. Catheter associated urinary tract infection. 2. Right groin infected ulcer. INTERVAL HISTORY: Patient is afebrile. The patient is breathing comfortably. Denies having any chest pain. No shortness of breath, cough or abdominal pain or diarrhea. PHYSICAL EXAMINATION: Blood pressure 155/74 with a pulse of 61, temperature of 98. He is 97% on room air. General description is an elderly male lying in bed in no distress. Respiratory system: Unlabored breathing, clear to auscultation anteriorly. Heart S1, S2. Regular rate and rhythm. Abdomen soft, no tenderness. LAB: Repeat urine now showing MRSA. DIAGNOSTIC IMPRESSION AND PLAN: 1. Patient with MRSA catheter associated urinary tract infection. After changing catheter, urine is still positive. We will continue with vancomycin, pharmacy to dose for 2-3 weeks. 2. Right groin infected wound. Cultures were previously positive for MRSA and anaerobes. We will continue vancomycin he is getting for the UTI and oral Flagyl. Local care with Santyl. 3. Close outpatient follow up. 4. at the bedside. Questions and concerns were answered. MMODL / IJN: [id number] /
[2020-08-27] MEDS ORDERED: INSULIN DETEMIR (LEVEMIR) 100 UNIT/ML SYR SQ SCH (21:00)
[2020-08-28] MEDS ORDERED: VANCOMYCIN 2,000 MG in SODIUM CHLORIDE 0.9% 500 ML 500 ML IVPB SCH (04:00)
[2020-08-28] MEDS ORDERED: INSULIN DETEMIR (LEVEMIR) 100 UNIT/ML SYR SQ SCH (07:00)
== END 2020-08-27 16:20 | disposition home or self-care (01) | DRG 698 ==
LOC: EC 19:07 → 4SSUR 20:41
PROVIDERS: ADMIT Family Medicine; ATTEND Family Medicine
PROC: 0T2BX0Z Change Drainage Device in Bladder, External Approach (ICD-10-PCS; principal; 2020-08-24)
PROC: 02HV33Z Insertion of Infusion Device into Superior Vena Cava, Percutaneous Approach (ICD-10-PCS; 2020-08-27)
PROC: B548ZZA Ultrasonography of Superior Vena Cava, Guidance (ICD-10-PCS; 2020-08-27)
DX: T83.518A Infection and inflammatory reaction due to other urinary catheter, initial encounter (principal); L89.523 Pressure ulcer of left ankle, stage 3; L89.513 Pressure ulcer of right ankle, stage 3; L89.153 Pressure ulcer of sacral region, stage 3; G93.41 Metabolic encephalopathy; G92 Toxic encephalopathy; N39.0 Urinary tract infection, site not specified; F05 Delirium due to known physiological condition; G82.20 Paraplegia, unspecified; G61.0 Guillain-Barre syndrome; L97.909 Non-pressure chronic ulcer of unspecified part of unspecified lower leg with unspecified severity; Z79.01 Long term (current) use of anticoagulants; F02.80 Dementia in other diseases classified elsewhere, unspecified severity, without behavioral disturbance, psychotic disturbance, mood disturbance, and anxiety; Z20.822 Contact with and (suspected) exposure to COVID-19; E11.9 Type 2 diabetes mellitus without complications; Z86.718 Personal history of other venous thrombosis and embolism; E78.5 Hyperlipidemia, unspecified; E86.0 Dehydration; Y84.6 Urinary catheterization as the cause of abnormal reaction of the patient, or of later complication, without mention of misadventure at the time of the procedure; Z79.4 Long term (current) use of insulin; B95.62 Methicillin resistant Staphylococcus aureus infection as the cause of diseases classified elsewhere; T36.8X5A Adverse effect of other systemic antibiotics, initial encounter; Z93.3 Colostomy status; Z93.1 Gastrostomy status; Z93.59 Other cystostomy status; Z95.1 Presence of aortocoronary bypass graft; Z86.14 Personal history of Methicillin resistant Staphylococcus aureus infection; Z87.891 Personal history of nicotine dependence; Z82.5 Family history of asthma and other chronic lower respiratory diseases; Z80.1 Family history of malignant neoplasm of trachea, bronchus and lung; F32.9 Major depressive disorder, single episode, unspecified; F41.9 Anxiety disorder, unspecified; G20 Parkinson's disease; G40.909 Epilepsy, unspecified, not intractable, without status epilepticus; I10 Essential (primary) hypertension; K21.9 Gastro-esophageal reflux disease without esophagitis; Z74.01 Bed confinement status; Z79.899 Other long term (current) drug therapy; L89.899 Pressure ulcer of other site, unspecified stage
CPT/HCPCS: 36415; 36573; 71045; 74176; 80048; 80053; 80202; 81001; 82550; 83036; 83605; 83735; 85025; 87040; 87077; 87086; 87186; 87635; 93005; 96361; 96374; 99285

== ENCOUNTER 2020-09-28 23:19 | Inpatient (IN) | payer MEDICARE ==
--- NOTE | 2020-09-29 00:26 | XR ---
EXAMINATION TYPE: XR chest 1V portable DATE OF EXAM: 09/29/2020 COMPARISON: 08/23/2020 HISTORY: Altered mental status TECHNIQUE: Single view FINDINGS: There is no heart failure nor confluent pneumonic infiltrate. There are sternal wires. Hear t size is normal. There are chest leads. Costophrenic angles are clear. IMPRESSION: No cardiopulmonary disease. No change.
--- NOTE | 2020-09-29 00:28 | CT ---
EXAMINATION TYPE: CT brain wo con DATE OF EXAM: 09/29/2020 COMPARISON: 03/07/2018 HISTORY: AMS CT DLP: 1072.4 mGycm Automated exposure control for dose reduction was used. Images of the brain obtained with no contrast. There is some cerebral cortical atrophy. There is no mass effect nor midline shift. There is no sign of intracranial hemorrhage. Calvarium is intact. The skull base is intact. IMPRESSION: Cerebral atrophy. No acute intracranial abnormality. No change.
[2020-09-29 01:03] LABS: Basophils # (A) 0.1 k/uL (0-0.2); Basophils % (A) 1 %; Eosinophils # (A) 0.1 k/uL (0-0.7); Eosinophils % (A) 2 %; HCT 37.7 % (39.0-53.0); HGB 11.9 gm/dL (13.0-17.5); Lymphocytes # (A) 1.2 k/uL (1.0-4.8); Lymphocytes % (A) 18 %; MCH 27.8 pg (25.0-35.0); MCHC 31.5 g/dL (31.0-37.0); MCV 88.3 fL (80.0-100.0); Mean Platelet Volume 7.1; Monocytes # (A) 0.4 k/uL (0-1.0); Monocytes % (A) 6 %; Neutrophils # (A) 4.9 k/uL (1.3-7.7); Neutrophils % (A) 72 %; Platelet Count 258 k/uL (150-450); RBC 4.27 m/uL (4.30-5.90); RDW 14.9 % (11.5-15.5); WBC 6.8 k/uL (3.8-10.6)
[2020-09-29 01:10] LABS: INR 1.1 (<1.2); Prothrombin Time 11.5 sec (9.0-12.0)
[2020-09-29 01:36] LABS: Appearance,Urine Turbid (Clear); Bacteria,Urine Moderate /hpf; Bilirubin,Urine Negative (Negative); Blood,Urine Moderate (Negative); Color,Urine Yellow; Glucose,Urine (UA) 1+ (Negative); Ketones,Urine Negative (Negative); Leukocyte Esterase,Urine Large (Negative); Mucus,Urine Rare /hpf; Nitrite,Urine Positive (Negative); PH, Urine 8.5 (5.0-8.0); Protein,Urine 4+ (Negative); RBC,Urine >182 /hpf (0-5); Specific Gravity,Urine 1.021 (1.001-1.035); Urobilinogen,Urine <2.0 mg/dL (<2.0); WBC,Urine >182 /hpf (0-5)
[2020-09-29 01:47] LABS: Albumin 3.7 g/dL (3.5-5.0); Potassium 3.7 mmol/L (3.5-5.1); Total Bilirubin 0.5 mg/dL (0.2-1.3); Total Protein 7.4 g/dL (6.3-8.2)
[2020-09-29] MEDS ORDERED: ACETAMINOPHEN TAB 325 MG TAB PO PRN (04:18)
[2020-09-29] MEDS ORDERED: NALOXONE 0.4 MG/ML 1 ML VIAL IV PRN (04:18)
[2020-09-29] MEDS: SODIUM CHLORIDE 0.9% 1,000 ML IV SCH ×2 (06:14→21:06)
--- NOTE | 2020-09-29 07:45 | ED ---
Altered Mental Status HPI - General Chief Complaint: Altered Mental Status Stated Complaint: altered mental status Time Seen by Provider: 09/28/20 23:34 Source: EMS Mode of arrival: EMS - History of Present Illness Initial Comments: This patient is a 65-year-old man sent here from longterm to have evaluation for altered mental status. Most of the history comes from the patient's who is at the bedside. She states that she noticed that his oral intake had decreased from usual going back a number of days now. Since the morning he has been less alert, more disoriented and confused. When I interview the patient, he can answer simple direct questions. He is denying pain. No dyspnea. Fevers noted. MD Complaint: altered mental status, confusion -: days(s) Severity: moderate Consistency of Symptoms: getting worse Context: history of similar presentation Associated Symptoms: denies other symptoms, loss of appetite - Related Data Home Medications Medication Instructions Recorded Confirmed Apixaban [Eliquis] 5 mg PO BID@0800,1700 07/27/17 09/28/20 Carbidopa-Levodopa 10-100 mg 1 tab PO TID@0600,1400,2200 04/06/18 09/28/20 [Sinemet 10-100 mg] Losartan [Cozaar] 25 mg PO DAILY@0800 11/05/19 09/28/20 methocarbamoL [Robaxin] 500 mg PO TID PRN 11/05/19 09/28/20 Hydrochlorothiazide 12.5 mg PO DAILY@0800 08/24/20 09/28/20 [hydroCHLOROthiazide] Melatonin 20 mg PO HS 08/24/20 09/28/20 INSULIN ASPART (NovoLOG) [NovoLOG See Protocol SQ 09/28/20 09/28/20 (formulary)] ACHS@07,11,1630,2130 L.acidoph,Paracasei, B.lactis 1 cap PO DAILY@0800 09/28/20 09/28/20 [Probiotic] Magnesium Hydroxide [Milk of 7,200 mg PO Q48H PRN 09/28/20 09/28/20 Magnesia Concentrate] Na Phos,M-B/Na Phos,Di-Ba [Fleet 133 ml RECTAL DAILY PRN 09/28/20 09/28/20 Adult] bisacodyL [Bisacodyl] 10 mg RECTAL DAILY PRN 09/28/20 09/28/20 Previous Rx's Medication Instructions Recorded Acetaminophen Tab [Tylenol] 650 mg PO Q6HR PRN tab 10/03/20 Cefuroxime Axetil [Ceftin] 500 mg PO BID 7 Days #14 tab 10/03/20 Collagenase [Santyl] 1 applic TOPICAL DAILY applic 10/03/20 Gabapentin [Neurontin] 800 mg PO TID@0600,1400,2200 #18 10/03/20 cap Insulin Glargine/Lixisenatide 20 units SQ HS@2130 #0 10/03/20 [Soliqua 100 Unit-33 Mcg/ml Pen] Liquacel 30 ml PO BID@1200,2100 #0 10/03/20 Oxybutynin ER [Ditropan Xl] 15 mg PO DAILY tab.er.24 10/03/20 Pantoprazole Sodium [Protonix] 40 mg PO DAILY #1 tablet. 10/03/20 Allergies Allergy/AdvReac Type Severity Reaction Status Date / Time levofloxacin [From Levaquin] Allergy Unknown Verified 09/30/20 16:39 Review of Systems ROS Statement: Those systems with pertinent positive or pertinent negative responses have been documented in the HPI. ROS Other: All systems not noted in ROS Statement are negative. Constitutional: Denies: fever Respiratory: Denies: cough, dyspnea Cardiovascular: Denies: chest pain Gastrointestinal: Denies: abdominal pain Neurological: Denies: headache Past Medical History Past Medical History: Dementia, Diabetes Mellitus, Deep Vein Thrombosis (DVT), Hyperlipidemia, Hypertension, Memory Impairment, Prostate Disorder Additional Past Medical History / Comment(s): Spouse states pt has pulled out IVs and other equipment and has thrown himself out of bed in the past-recommends side rails be up at all times, DVT B/L LE, insomnia, osteomeylitis- coccyx wound has had hyerbaric tx and wound vac in the past- goes to [facility] every , colostomy d/t coccyx wound, uti's, guillain barre syndrome, neurogenic bladder has suprapubic cath-last changed 08/24/20, paraplegia SINCE LAMINECTOMY FEB 15, 2017-PARALIZED WAIST DOWN, abd hernia, peg tube previously, limited ROM with neck, NIDDM now diet controlled/possible bilateral foot neuropathy. stated "that the dementia pt has also has parkinson like symptoms". 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 Supra PUBIC CATH (changed last 08/24/20), picc lines-since removed, previous peg tube Past Anesthesia/Blood Transfusion Reactions: Previous Problems w/ Anesthesia Additional Past Anesthesia/Blood Transfusion Reaction / Comment(s): when pt had 2 sx within a short time from each other ,he had diffiuclty waking up. Past blood transfusion-no reaction Past Psychological History: Anxiety, Depression Smoking Status: Former smoker Past Alcohol Use History: Rare Past Drug Use History: None Reported - Past Family History Brother(s) Family Medical History: Cancer Additional Family Medical History / Comment(s): Lung cancer Mother Additional Family Medical History / Comment(s): emphysema Father Additional Family Medical History / Comment(s): emphysema General Exam General appearance: in no apparent distress, other (Patient is somnolent but arouses to voice.) Head exam: Present: atraumatic, normocephalic Eye exam: Present: normal appearance, PERRL, EOMI. Absent: scleral icterus, conjunctival injection ENT exam: Present: mucous membranes dry Neck exam: Present: normal inspection, full ROM Respiratory exam: Present: normal lung sounds bilaterally. Absent: respiratory distress, wheezes, rales, rhonchi, stridor Cardiovascular Exam: Present: regular rate, normal rhythm, normal heart sounds. Absent: systolic murmur, diastolic murmur, rubs, gallop GI/Abdominal exam: Present: soft, other (There is a colostomy present on the left side of the abdomen with normal appearing output. There is a suprapubic urinary catheter.). Absent: distended, tenderness, guarding, rebound, rigid Extremities exam: Present: normal capillary refill, other (Patient has inflatable venous stasis boot). Absent: pedal edema Back exam: Present: normal inspection Neurological exam: Present: CN II-XII intact. Absent: oriented X3, motor sensory deficit Skin exam: Present: warm, dry, intact, normal color. Absent: rash Course Vital Signs 09/28/20 09/29/20 09/29/20 23:20 01:22 03:49 Temperature 100 F H 99.1 F Pulse Rate 88 83 81 Respiratory 19 18 20 Rate Blood Pressure 138/75 130/66 136/70 O2 Sat by Pulse 96 95 98 Oximetry 09/29/20 09/29/20 09/29/20 05:00 05:54 08:04 Temperature 98.8 F Pulse Rate 84 84 77 Respiratory 16 19 18 Rate Blood Pressure 132/69 127/66 140/73 O2 Sat by Pulse 98 98 96 Oximetry 09/29/20 09/29/20 09/29/20 10:28 15:03 16:31 Temperature 98.2 F Pulse Rate 75 71 71 Respiratory 19 19 18 Rate Blood Pressure 140/73 111/52 113/52 O2 Sat by Pulse 100 96 100 Oximetry Medical Decision Making - Lab Data Result diagrams: 10/03/20 05:49 10/03/20 05:49 Lab Results 09/28/20 09/28/20 09/28/20 Range/Units 23:50 23:50 23:50 WBC 6.8 (3.8-10.6) k/uL RBC 4.27 L (4.30-5.90) m/uL Hgb 11.9 L (13.0-17.5) gm/dL Hct 37.7 L (39.0-53.0) % MCV 88.3 (80.0-100.0) fL MCH 27.8 (25.0-35.0) pg MCHC 31.5 (31.0-37.0) g/dL RDW 14.9 (11.5-15.5) % Plt Count 258 (150-450) k/uL MPV 7.1 Neutrophils % 72 % Lymphocytes % 18 % Monocytes % 6 % Eosinophils % 2 % Basophils % 1 % Neutrophils # 4.9 (1.3-7.7) k/uL Lymphocytes # 1.2 (1.0-4.8) k/uL Monocytes # 0.4 (0-1.0) k/uL Eosinophils # 0.1 (0-0.7) k/uL Basophils # 0.1 (0-0.2) k/uL Hypochromasia Poikilocytosis PT 11.5 (9.0-12.0) sec INR 1.1 (<1.2) APTT 25.0 (22.0-30.0) sec Sodium 138 (137-145) mmol/L Potassium 3.7 (3.5-5.1) mmol/L Chloride 99 (98-107) mmol/L Carbon Dioxide 29 (22-30) mmol/L Anion Gap 10 mmol/L BUN 45 H (9-20) mg/dL Creatinine 1.17 (0.66-1.25) mg/dL Est GFR (CKD-EPI)AfAm 74 (>60 ml/min/1.73 sqM) Est GFR (CKD-EPI)NonAf 64 (>60 ml/min/1.73 sqM) BUN/Creatinine Ratio (12.00-20.00) Ratio Glucose 255 H (74-99) mg/dL POC Glucose (mg/dL) (75-99) mg/dL POC Glu Swimming Pool Attendant ID Estimated Ave Glu mg/dL Hemoglobin A1c (4.0-6.0) % Calcium 9.0 (8.4-10.2) mg/dL Total Bilirubin 0.5 (0.2-1.3) mg/dL AST 16 L (17-59) U/L ALT 6 (4-49) U/L Alkaline Phosphatase 77 (38-126) U/L Troponin I (0.000-0.034) ng/mL Total Protein 7.4 (6.3-8.2) g/dL Albumin 3.7 (3.5-5.0) g/dL Urine Color Urine Appearance (Clear) Urine pH (5.0-8.0) Ur Specific [place] (1.001-1.035) Urine Protein (Negative) Urine Glucose (UA) (Negative) Urine Ketones (Negative) Urine Blood (Negative) Urine Nitrite (Negative) Urine Bilirubin (Negative) Urine Urobilinogen (<2.0) mg/dL Ur Leukocyte Esterase (Negative) Urine RBC (0-5) /hpf Urine WBC (0-5) /hpf Urine WBC Clumps (None) /hpf Urine Bacteria (None) /hpf Urine Mucus (None) /hpf 09/28/20 09/29/20 09/29/20 Range/Units 23:50 01:10 17:15 WBC (3.8-10.6) k/uL RBC (4.30-5.90) m/uL Hgb (13.0-17.5) gm/dL Hct (39.0-53.0) % MCV (80.0-100.0) fL MCH (25.0-35.0) pg MCHC (31.0-37.0) g/dL RDW (11.5-15.5) % Plt Count (150-450) k/uL MPV Neutrophils % % Lymphocytes % % Monocytes % % Eosinophils % % Basophils % % Neutrophils # (1.3-7.7) k/uL Lymphocytes # (1.0-4.8) k/uL Monocytes # (0-1.0) k/uL Eosinophils # (0-0.7) k/uL Basophils # (0-0.2) k/uL Hypochromasia Poikilocytosis PT (9.0-12.0) sec INR (<1.2) APTT (22.0-30.0) sec Sodium (137-145) mmol/L Potassium (3.5-5.1) mmol/L Chloride (98-107) mmol/L Carbon Dioxide (22-30) mmol/L Anion Gap mmol/L BUN (9-20) mg/dL Creatinine (0.66-1.25) mg/dL Est GFR (CKD-EPI)AfAm (>60 ml/min/1.73 sqM) Est GFR (CKD-EPI)NonAf (>60 ml/min/1.73 sqM) BUN/Creatinine Ratio (12.00-20.00) Ratio Glucose (74-99) mg/dL POC Glucose (mg/dL) 191 H (75-99) mg/dL POC Glu Swimming Pool Attendant ID Celestino Cordova Estimated [address] Glu mg/dL Hemoglobin A1c (4.0-6.0) % Calcium (8.4-10.2) mg/dL Total Bilirubin (0.2-1.3) mg/dL AST (17-59) U/L ALT (4-49) U/L Alkaline Phosphatase (38-126) U/L Troponin I <0.012 (0.000-0.034) ng/mL Total Protein (6.3-8.2) g/dL Albumin (3.5-5.0) g/dL Urine Color Yellow Urine Appearance Turbid (Clear) Urine pH 8.5 H (5.0-8.0) Ur Specific [place] 1.021 (1.001-1.035) Urine Protein 4+ H (Negative) Urine Glucose (UA) 1+ H (Negative) Urine Ketones Negative (Negative) Urine Blood Moderate H (Negative) Urine Nitrite Positive (Negative) Urine Bilirubin Negative (Negative) Urine Urobilinogen <2.0 (<2.0) mg/dL Ur Leukocyte Esterase Large H (Negative) Urine RBC >182 H (0-5) /hpf Urine WBC >182 H (0-5) /hpf Urine WBC Clumps Many H (None) /hpf Urine Bacteria Moderate H (None) /hpf Urine Mucus Rare H (None) /hpf 09/30/20 09/30/20 09/30/20 Range/Units 00:00 05:22 05:22 WBC 6.0 (3.8-10.6) k/uL RBC 3.66 L (4.30-5.90) m/uL Hgb 10.7 L (13.0-17.5) gm/dL Hct 32.8 L (39.0-53.0) % MCV 89.5 (80.0-100.0) fL MCH 29.2 (25.0-35.0) pg MCHC 32.6 (31.0-37.0) g/dL RDW 14.4 (11.5-15.5) % Plt Count 231 (150-450) k/uL MPV 7.5 Neutrophils % 71 % Lymphocytes % 17 % Monocytes % 5 % Eosinophils % 4 % Basophils % 1 % Neutrophils # 4.3 (1.3-7.7) k/uL Lymphocytes # 1.0 (1.0-4.8) k/uL Monocytes # 0.3 (0-1.0) k/uL Eosinophils # 0.2 (0-0.7) k/uL Basophils # 0.0 (0-0.2) k/uL Hypochromasia Poikilocytosis PT (9.0-12.0) sec INR (<1.2) APTT (22.0-30.0) sec Sodium (137-145) mmol/L Potassium (3.5-5.1) mmol/L Chloride (98-107) mmol/L Carbon Dioxide (22-30) mmol/L Anion Gap mmol/L BUN (9-20) mg/dL Creatinine (0.66-1.25) mg/dL Est GFR (CKD-EPI)AfAm (>60 ml/min/1.73 sqM) Est GFR (CKD-EPI)NonAf (>60 ml/min/1.73 sqM) BUN/Creatinine Ratio (12.00-20.00) Ratio Glucose (74-99) mg/dL POC Glucose (mg/dL) 186 H (75-99) mg/dL POC Glu Swimming Pool Attendant MK Neel Sarmiento [address] Glu mg/dL 163 Hemoglobin A1c 7.3 H (4.0-6.0) % Calcium (8.4-10.2) mg/dL Total Bilirubin (0.2-1.3) mg/dL AST (17-59) U/L ALT (4-49) U/L Alkaline Phosphatase (38-126) U/L Troponin I (0.000-0.034) ng/mL Total Protein (6.3-8.2) g/dL Albumin (3.5-5.0) g/dL Urine Color Urine Appearance (Clear) Urine pH (5.0-8.0) Ur Specific [place] (1.001-1.035) Urine Protein (Negative) Urine Glucose (UA) (Negative) Urine Ketones (Negative) Urine Blood (Negative) Urine Nitrite (Negative) Urine Bilirubin (Negative) Urine Urobilinogen (<2.0) mg/dL Ur Leukocyte Esterase (Negative) Urine RBC (0-5) /hpf Urine WBC (0-5) /hpf Urine WBC Clumps (None) /hpf Urine Bacteria (None) /hpf Urine Mucus (None) /hpf 09/30/20 09/30/20 09/30/20 Range/Units 05:22 05:58 12:03 WBC (3.8-10.6) k/uL RBC (4.30-5.90) m/uL Hgb (13.0-17.5) gm/dL Hct (39.0-53.0) % MCV (80.0-100.0) fL MCH (25.0-35.0) pg MCHC (31.0-37.0) g/dL RDW (11.5-15.5) % Plt Count (150-450) k/uL MPV Neutrophils % % Lymphocytes % % Monocytes % % Eosinophils % % Basophils % % Neutrophils # (1.3-7.7) k/uL Lymphocytes # (1.0-4.8) k/uL Monocytes # (0-1.0) k/uL Eosinophils # (0-0.7) k/uL Basophils # (0-0.2) k/uL Hypochromasia Poikilocytosis PT (9.0-12.0) sec INR (<1.2) APTT (22.0-30.0) sec Sodium 138 (137-145) mmol/L Potassium 3.6 (3.5-5.1) mmol/L Chloride 103 (98-107) mmol/L Carbon Dioxide 28.3 (22-30) mmol/L Anion Gap 6.70 mmol/L BUN 34.0 H (9-20) mg/dL Creatinine 1.3 (0.66-1.25) mg/dL Est GFR (CKD-EPI)AfAm 65.4 (>60 ml/min/1.73 sqM) Est GFR (CKD-EPI)NonAf 56.5 L (>60 ml/min/1.73 sqM) BUN/Creatinine Ratio 26.15 H (12.00-20.00) Ratio Glucose 153 H (74-99) mg/dL POC Glucose (mg/dL) 177 H 187 H (75-99) mg/dL POC Glu Swimming Pool Attendant ID Laure Dias SanazCassidy elliott [address] Glu mg/dL Hemoglobin A1c (4.0-6.0) % Calcium 8.1 L (8.4-10.2) mg/dL Total Bilirubin (0.2-1.3) mg/dL AST (17-59) U/L ALT (4-49) U/L Alkaline Phosphatase (38-126) U/L Troponin I (0.000-0.034) ng/mL Total Protein (6.3-8.2) g/dL Albumin (3.5-5.0) g/dL Urine Color Urine Appearance (Clear) Urine pH (5.0-8.0) Ur Specific [place] (1.001-1.035) Urine Protein (Negative) Urine Glucose (UA) (Negative) Urine Ketones (Negative) Urine Blood (Negative) Urine Nitrite (Negative) Urine Bilirubin (Negative) Urine Urobilinogen (<2.0) mg/dL Ur Leukocyte Esterase (Negative) Urine RBC (0-5) /hpf Urine WBC (0-5) /hpf Urine WBC Clumps (None) /hpf Urine Bacteria (None) /hpf Urine Mucus (None) /hpf 09/30/20 10/01/20 10/01/20 Range/Units 17:19 00:05 04:35 WBC 4.7 (3.8-10.6) k/uL RBC 3.48 L (4.30-5.90) m/uL Hgb 10.0 L (13.0-17.5) gm/dL Hct 30.5 L (39.0-53.0) % MCV 87.5 (80.0-100.0) fL MCH 28.6 (25.0-35.0) pg MCHC 32.7 (31.0-37.0) g/dL RDW 14.5 (11.5-15.5) % Plt Count 231 (150-450) k/uL MPV 6.8 Neutrophils % 71 % Lymphocytes % 16 % Monocytes % 6 % Eosinophils % 5 % Basophils % 1 % Neutrophils # 3.3 (1.3-7.7) k/uL Lymphocytes # 0.8 L (1.0-4.8) k/uL Monocytes # 0.3 (0-1.0) k/uL Eosinophils # 0.2 (0-0.7) k/uL Basophils # 0.0 (0-0.2) k/uL Hypochromasia Poikilocytosis Slight PT (9.0-12.0) sec INR (<1.2) APTT (22.0-30.0) sec Sodium (137-145) mmol/L Potassium (3.5-5.1) mmol/L Chloride (98-107) mmol/L Carbon Dioxide (22-30) mmol/L Anion Gap mmol/L BUN (9-20) mg/dL Creatinine (0.66-1.25) mg/dL Est GFR (CKD-EPI)AfAm (>60 ml/min/1.73 sqM) Est GFR (CKD-EPI)NonAf (>60 ml/min/1.73 sqM) BUN/Creatinine Ratio (12.00-20.00) Ratio Glucose (74-99) mg/dL POC Glucose (mg/dL) 190 H 160 H (75-99) mg/dL POC Glu Swimming Pool Attendant MK Leal, Denita Garcia [address] Glu mg/dL Hemoglobin A1c (4.0-6.0) % Calcium (8.4-10.2) mg/dL Total Bilirubin (0.2-1.3) mg/dL AST (17-59) U/L ALT (4-49) U/L Alkaline Phosphatase (38-126) U/L Troponin I (0.000-0.034) ng/mL Total Protein (6.3-8.2) g/dL Albumin (3.5-5.0) g/dL Urine Color Urine Appearance (Clear) Urine pH (5.0-8.0) Ur Specific [place] (1.001-1.035) Urine Protein (Negative) Urine Glucose (UA) (Negative) Urine Ketones (Negative) Urine Blood (Negative) Urine Nitrite (Negative) Urine Bilirubin (Negative) Urine Urobilinogen (<2.0) mg/dL Ur Leukocyte Esterase (Negative) Urine RBC (0-5) /hpf Urine WBC (0-5) /hpf Urine WBC Clumps (None) /hpf Urine Bacteria (None) /hpf Urine Mucus (None) /hpf 10/01/20 10/01/20 10/01/20 Range/Units 04:35 05:50 12:04 WBC (3.8-10.6) k/uL RBC (4.30-5.90) m/uL Hgb (13.0-17.5) gm/dL Hct (39.0-53.0) % MCV (80.0-100.0) fL MCH (25.0-35.0) pg MCHC (31.0-37.0) g/dL RDW (11.5-15.5) % Plt Count (150-450) k/uL MPV Neutrophils % % Lymphocytes % % Monocytes % % Eosinophils % % Basophils % % Neutrophils # (1.3-7.7) k/uL Lymphocytes # (1.0-4.8) k/uL Monocytes # (0-1.0) k/uL Eosinophils # (0-0.7) k/uL Basophils # (0-0.2) k/uL Hypochromasia Poikilocytosis PT (9.0-12.0) sec INR (<1.2) APTT (22.0-30.0) sec Sodium 136 (137-145) mmol/L Potassium 3.5 (3.5-5.1) mmol/L Chloride 102 (98-107) mmol/L Carbon Dioxide 25.0 (22-30) mmol/L Anion Gap 9.00 mmol/L BUN 28.0 H (9-20) mg/dL Creatinine 1.1 (0.66-1.25) mg/dL Est GFR (CKD-EPI)AfAm 80.1 (>60 ml/min/1.73 sqM) Est GFR (CKD-EPI)NonAf 69.1 (>60 ml/min/1.73 sqM) BUN/Creatinine Ratio 25.45 H (12.00-20.00) Ratio Glucose 153 H (74-99) mg/dL POC Glucose (mg/dL) 169 H 202 H (75-99) mg/dL POC Glu Swimming Pool Attendant MK DulceDenita Farzaneh [address] Glu mg/dL Hemoglobin A1c (4.0-6.0) % Calcium 7.8 L (8.4-10.2) mg/dL Total Bilirubin (0.2-1.3) mg/dL AST (17-59) U/L ALT (4-49) U/L Alkaline Phosphatase (38-126) U/L Troponin I (0.000-0.034) ng/mL Total Protein (6.3-8.2) g/dL Albumin (3.5-5.0) g/dL Urine Color Urine Appearance (Clear) Urine pH (5.0-8.0) Ur Specific [place] (1.001-1.035) Urine Protein (Negative) Urine Glucose (UA) (Negative) Urine Ketones (Negative) Urine Blood (Negative) Urine Nitrite (Negative) Urine Bilirubin (Negative) Urine Urobilinogen (<2.0) mg/dL Ur Leukocyte Esterase (Negative) Urine RBC (0-5) /hpf Urine WBC (0-5) /hpf Urine WBC Clumps (None) /hpf Urine Bacteria (None) /hpf Urine Mucus (None) /hpf 10/01/20 10/02/20 10/02/20 Range/Units 17:22 00:17 05:43 WBC (3.8-10.6) k/uL RBC (4.30-5.90) m/uL Hgb (13.0-17.5) gm/dL Hct (39.0-53.0) % MCV (80.0-100.0) fL MCH (25.0-35.0) pg MCHC (31.0-37.0) g/dL RDW (11.5-15.5) % Plt Count (150-450) k/uL MPV Neutrophils % % Lymphocytes % % Monocytes % % Eosinophils % % Basophils % % Neutrophils # (1.3-7.7) k/uL Lymphocytes # (1.0-4.8) k/uL Monocytes # (0-1.0) k/uL Eosinophils # (0-0.7) k/uL Basophils # (0-0.2) k/uL Hypochromasia Poikilocytosis PT (9.0-12.0) sec INR (<1.2) APTT (22.0-30.0) sec Sodium 141 (137-145) mmol/L Potassium 3.7 (3.5-5.1) mmol/L Chloride 107 (98-107) mmol/L Carbon Dioxide 19.8 L (22-30) mmol/L Anion Gap 14.20 H mmol/L BUN 19.0 (9-20) mg/dL Creatinine 1.0 (0.66-1.25) mg/dL Est GFR (CKD-EPI)AfAm 89.9 (>60 ml/min/1.73 sqM) Est GFR (CKD-EPI)NonAf 77.5 (>60 ml/min/1.73 sqM) BUN/Creatinine Ratio 19.00 (12.00-20.00) Ratio Glucose 150 H (74-99) mg/dL POC Glucose (mg/dL) 182 H 151 H (75-99) mg/dL POC Glu Swimming Pool Attendant Farzaneh Saucedo Connie [address] Glu mg/dL Hemoglobin A1c (4.0-6.0) % Calcium 8.1 L (8.4-10.2) mg/dL Total Bilirubin (0.2-1.3) mg/dL AST (17-59) U/L ALT (4-49) U/L Alkaline Phosphatase (38-126) U/L Troponin I (0.000-0.034) ng/mL Total Protein (6.3-8.2) g/dL Albumin (3.5-5.0) g/dL Urine Color Urine Appearance (Clear) Urine pH (5.0-8.0) Ur Specific [place] (1.001-1.035) Urine Protein (Negative) Urine Glucose (UA) (Negative) Urine Ketones (Negative) Urine Blood (Negative) Urine Nitrite (Negative) Urine Bilirubin (Negative) Urine Urobilinogen (<2.0) mg/dL Ur Leukocyte Esterase (Negative) Urine RBC (0-5) /hpf Urine WBC (0-5) /hpf Urine WBC Clumps (None) /hpf Urine Bacteria (None) /hpf Urine Mucus (None) /hpf 10/02/20 10/02/20 Range/Units 05:43 06:06 WBC 4.3 (3.8-10.6) k/uL RBC 3.84 L (4.30-5.90) m/uL Hgb 10.9 L (13.0-17.5) gm/dL Hct 34.3 L (39.0-53.0) % MCV 89.3 (80.0-100.0) fL MCH 28.3 (25.0-35.0) pg MCHC 31.7 (31.0-37.0) g/dL RDW 14.0 (11.5-15.5) % Plt Count 228 (150-450) k/uL MPV 8.0 Neutrophils % % Lymphocytes % % Monocytes % % Eosinophils % % Basophils % % Neutrophils # (1.3-7.7) k/uL Lymphocytes # (1.0-4.8) k/uL Monocytes # (0-1.0) k/uL Eosinophils # (0-0.7) k/uL Basophils # (0-0.2) k/uL Hypochromasia Slight Poikilocytosis PT (9.0-12.0) sec INR (<1.2) APTT (22.0-30.0) sec Sodium (137-145) mmol/L Potassium (3.5-5.1) mmol/L Chloride (98-107) mmol/L Carbon Dioxide (22-30) mmol/L Anion Gap mmol/L BUN (9-20) mg/dL Creatinine (0.66-1.25) mg/dL Est GFR (CKD-EPI)AfAm (>60 ml/min/1.73 sqM) Est GFR (CKD-EPI)NonAf (>60 ml/min/1.73 sqM) BUN/Creatinine Ratio (12.00-20.00) Ratio Glucose (74-99) mg/dL POC Glucose (mg/dL) 167 H (75-99) mg/dL POC Glu [employer] Att[employer] ID Denita Cardona Estimated Ave Glu mg/dL Hemoglobin A1c (4.0-6.0) % Calcium (8.4-10.2) mg/dL Total Bilirubin (0.2-1.3) mg/dL AST (17-59) U/L ALT (4-49) U/L Alkaline Phosphatase (38-126) U/L Troponin I (0.000-0.034) ng/mL Total Protein (6.3-8.2) g/dL Albumin (3.5-5.0) g/dL Urine Color Urine Appearance (Clear) Urine pH (5.0-8.0) Ur Specific [place] (1.001-1.035) Urine Protein (Negative) Urine Glucose (UA) (Negative) Urine Ketones (Negative) Urine Blood (Negative) Urine Nitrite (Negative) Urine Bilirubin (Negative) Urine Urobilinogen (<2.0) mg/dL Ur Leukocyte Esterase (Negative) Urine RBC (0-5) /hpf Urine WBC (0-5) /hpf Urine WBC Clumps (None) /hpf Urine Bacteria (None) /hpf Urine Mucus (None) /hpf Disposition Clinical Impression: Altered mental status, UTI (urinary tract infection) Disposition: ADMITTED IP TO THIS HOSP Condition: Good Is patient prescribed a controlled substance at d/c from ED?: No
[2020-09-29] MEDS: HEPARIN SODIUM,PORCINE/PF 5,000 UNIT/0.5 ML SYRINGE SQ SCH ×2 (08:02→16:39)
[2020-09-29] MEDS ORDERED: bisacodyL 10 MG SUPP RECTAL PRN (16:15)
[2020-09-29] MEDS: GABAPENTIN 400 MG CAP PO SCH ×2 (16:56→21:08)
[2020-09-29 17:17] LABS: Glucose,Whole Blood 191 mg/dL (75-99)
[2020-09-29] MEDS: methocarbamoL 500 MG TAB PO SCH (21:08)
[2020-09-29] MEDS: MELATONIN 3 MG TABLET PO SCH (21:08)
[2020-09-29] MEDS: CARBIDOPA-LEVODOPA 10-100 MG 1 EACH TAB PO SCH (21:09)
[2020-09-30 00:01] LABS: Glucose,Whole Blood 186 mg/dL (75-99)
[2020-09-30] MEDS: HEPARIN SODIUM,PORCINE/PF 5,000 UNIT/0.5 ML SYRINGE SQ SCH ×3 (00:30→16:32)
[2020-09-30] MEDS: INSULIN ASPART (NovoLOG) 100 UNIT/ML VIAL SQ SCH ×4 (00:31→17:53)
[2020-09-30] MEDS: GABAPENTIN 400 MG CAP PO SCH ×3 (05:35→21:17)
[2020-09-30] MEDS: CARBIDOPA-LEVODOPA 10-100 MG 1 EACH TAB PO SCH ×3 (05:35→21:16)
[2020-09-30 06:00] LABS: Glucose,Whole Blood 177 mg/dL (75-99)
[2020-09-30 06:22] LABS: Basophils % (A) 1 %; Eosinophils # (A) 0.2 k/uL (0-0.7); Eosinophils % (A) 4 %; HCT 32.8 % (39.0-53.0); HGB 10.7 gm/dL (13.0-17.5); Lymphocytes % (A) 17 %; MCH 29.2 pg (25.0-35.0); MCHC 32.6 g/dL (31.0-37.0); MCV 89.5 fL (80.0-100.0); Mean Platelet Volume 7.5; Monocytes # (A) 0.3 k/uL (0-1.0); Monocytes % (A) 5 %; Neutrophils # (A) 4.3 k/uL (1.3-7.7); Neutrophils % (A) 71 %; Platelet Count 231 k/uL (150-450); RBC 3.66 m/uL (4.30-5.90); RDW 14.4 % (11.5-15.5)
[2020-09-30] MEDS ORDERED: hydroCHLOROthiazide 12.5 MG CAP PO SCH (08:00)
[2020-09-30] MEDS ORDERED: LOSARTAN 25 MG TAB PO SCH (08:00)
[2020-09-30] MEDS: methocarbamoL 500 MG TAB PO SCH ×3 (08:51→21:16)
[2020-09-30 10:32] LABS: African American GFR (CKD) 65.4 (60.0-200.0); Anion Gap 6.7 mmol/L (4.00-12.00); BUN/Creat Ratio 26.15 Ratio (12.00-20.00); Calcium 8.1 mg/dL (8.7-10.3); Carbon Dioxide 28.3 mmol/L (21.6-31.8); Non-African American GFR(CKD) 56.5 (60.0-200.0); Potassium 3.6 mmol/L (3.5-5.5)
[2020-09-30] MEDS: SODIUM CHLORIDE 0.9% 1,000 ML IV SCH (11:25)
[2020-09-30 12:06] LABS: Glucose,Whole Blood 187 mg/dL (75-99)
--- NOTE | 2020-09-30 12:10 | P.GSCN ---
History of Present Illness Consult date: 09/30/20 Reason for Consult: Urinary retention History of present illness: Mr. Adam is a 65-year-old paraplegic with history of chronic urinary rete ntion, being managed with a suprapubic catheter for the past 4 years. Urology is consulted for SPT change, Patient undergoes SPT by home nursing every 2 weeks, tube was last changed 1-2 weeks ago per patient. He indicated he is been having significant debris and leakage around the catheter, he currently has a [address] He is been noticing significant leakage around the catheter and from his penis. Review of Systems - Constitutional Reports weakness, Denies chills, Denies fever, Denies weight loss - Cardiovascular Denies chest pain, Denies shortness of breath - Respiratory Denies cough, Denies 7 - Gastrointestinal Reports as per HPI - Genitourinary Denies dysuria, Denies flank pain - Integumentary Denies rash, Denies unusual bruising - Neurological Denies headaches, Denies syncope Past Medical History Past Medical History: Dementia, Diabetes Mellitus, Deep Vein Thrombosis (DVT), Hyperlipidemia, Hypertension, Memory Impairment, Prostate Disorder Additional Past Medical History / Comment(s): Spouse states pt has pulled out IVs and other equipment and has thrown himself out of bed in the past, DVT B/L LE, insomnia, osteomeylitis- coccyx wound has had hyperbaric tx and wound vac in the past- goes to 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 Supra PUBIC CATH , previous peg tube Past Anesthesia/Blood Transfusion Reactions: Previous Problems w/ Anesthesia Additional Past Anesthesia/Blood Transfusion Reaction / Comm: when pt had 2 sx within a short time from each other ,he had difficulty waking up. Past blood transfusion-no reaction Past Psychological History: Anxiety, Depression Additional Psychological History / Comment(s): Patient currently lives at [facility] Smoking Status: Former smoker Past Alcohol Use History: Rare Additional Past Alcohol Use History / Comment(s): started smoking at age 17 and QUIT SMOKING cigarettes 1992-started smoking cigars and , QUIT CIGARS 2009, no alcohol now Past Drug Use History: None Reported - Past Family History Brother(s) Family Medical History: Cancer Additional Family Medical History / Comment(s): Lung cancer Mother Additional Family Medical History / Comment(s): emphysema Father Additional Family Medical History / Comment(s): emphysema Medications and Allergies Home Medications Medication Instructions Recorded Confirmed Type Apixaban [Eliquis] 5 mg PO BID@0800,1700 07/27/17 09/28/20 History Carbidopa-Levodopa 10-100 mg 1 tab PO TID@0600,1400,2200 04/06/18 09/28/20 History [Sinemet 10-100 mg] Losartan [Cozaar] 25 mg PO DAILY@0800 11/05/19 09/28/20 History methocarbamoL [Robaxin] 500 mg PO TID PRN 11/05/19 09/28/20 History Hydrochlorothiazide 12.5 mg PO DAILY@0800 08/24/20 09/28/20 History [hydroCHLOROthiazide] Insulin Glargine/Lixisenatide 55 units SQ HS@212908/24/20 09/28/20 History [Soliqua 100 Unit-33 Mcg/ml Pen] Melatonin 20 mg PO HS 08/24/20 09/28/20 History Gabapentin [Neurontin] 800 mg PO TID@0600,1400,2200 09/28/20 09/28/20 History INSULIN ASPART (NovoLOG) [NovoLOG See Protocol SQ 09/28/20 09/28/20 History (formulary)] ACHS@07,11,1630,2130 Shiraz Packet 1 packet PO BID@0800,1700 09/28/20 09/28/20 History L.acidoph,Paracasei, B.lactis 1 cap PO DAILY@0800 09/28/20 09/28/20 History [Probiotic] Liquacel 30 ml PO BID@1200,2100 09/28/20 09/28/20 History Magnesium Hydroxide [Milk of 7,200 mg PO Q48H PRN 09/28/20 09/28/20 History Magnesia Concentrate] Na Phos,M-B/Na Phos,Di-Ba [Fleet 133 ml RECTAL DAILY PRN 09/28/20 09/28/20 History Adult] bisacodyL [Bisacodyl] 10 mg RECTAL DAILY PRN 09/28/20 09/28/20 History Allergies Allergy/AdvReac Type Severity Reaction Status Date / Time No Known Allergies Allergy Verified 09/28/20 23:44 Surgical - Exam Vital Signs Temp Pulse Resp BP Pulse Ox 100 F H 88 19 138/75 96 09/28/20 23:20 09/28/20 23:20 09/28/20 23:20 09/28/20 23:20 09/28/20 23:20 - General no distress, no pain - Eyes PERRL, normal ocular movement - ENT normal nares, normal mucosa - Respiratory normal expansion, normal respiratory effort - Abdomen Abdomen: soft, non tender - Genitourinary SPT in place, site clean, draining cloudy urine with sediment - Psychiatric oriented to time, oriented to person, oriented to place Results - Labs 09/30/20 05:22 09/30/20 05:22 Abnormal Lab Results - Last 24 Hours (Table) 09/29/20 09/30/20 09/30/20 Range/Units 17:15 00:00 05:22 RBC 3.66 L (4.30-5.90) m/uL Hgb 10.7 L (13.0-17.5) gm/dL Hct 32.8 L (39.0-53.0) % BUN (9.0-27.0) mg/dL Est GFR (CKD-EPI)NonAf (60.0-200.0) BUN/Creatinine Ratio (12.00-20.00) Ratio Glucose (70-110) mg/dL POC Glucose (mg/dL) 191 H 186 H (75-99) mg/dL Calcium (8.7-10.3) mg/dL 09/30/20 09/30/20 Range/Units 05:22 05:58 RBC (4.30-5.90) m/uL Hgb (13.0-17.5) gm/dL Hct (39.0-53.0) % BUN 34.0 H (9.0-27.0) mg/dL Est GFR (CKD-EPI)NonAf 56.5 L (60.0-200.0) BUN/Creatinine Ratio 26.15 H (12.00-20.00) Ratio Glucose 153 H (70-110) mg/dL POC Glucose (mg/dL) 177 H (75-99) mg/dL Calcium 8.1 L (8.7-10.3) mg/dL Microbiology - Last 24 Hours (Table) 09/28/20 23:35 Blood Culture - Preliminary Blood No Growth after 24 hours 09/28/20 23:50 Blood Culture - Preliminary Blood No Growth after 24 hours 09/29/20 01:10 Urine Culture - Preliminary Urine,Voided Diabetes panel 09/30/20 Range/Units 05:22 Sodium 138 (135-145) mmol/L Potassium 3.6 (3.5-5.5) mmol/L Chloride 103 (96-109) mmol/L Carbon Dioxide 28.3 (21.6-31.8) mmol/L BUN 34.0 H (9.0-27.0) mg/dL Creatinine 1.3 (0.6-1.5) mg/dL Glucose 153 H (70-110) mg/dL Calcium 8.1 L (8.7-10.3) mg/dL Calcium panel 09/30/20 Range/Units 05:22 Calcium 8.1 L (8.7-10.3) mg/dL Pituitary panel 09/30/20 Range/Units 05:22 Sodium 138 (135-145) mmol/L Potassium 3.6 (3.5-5.5) mmol/L Chloride 103 (96-109) mmol/L Carbon Dioxide 28.3 (21.6-31.8) mmol/L BUN 34.0 H (9.0-27.0) mg/dL Creatinine 1.3 (0.6-1.5) mg/dL Glucose 153 H (70-110) mg/dL Calcium 8.1 L (8.7-10.3) mg/dL Adrenal panel 09/30/20 Range/Units 05:22 Sodium 138 (135-145) mmol/L Potassium 3.6 (3.5-5.5) mmol/L Chloride 103 (96-109) mmol/L Carbon Dioxide 28.3 (21.6-31.8) mmol/L BUN 34.0 H (9.0-27.0) mg/dL Creatinine 1.3 (0.6-1.5) mg/dL Glucose 153 H (70-110) mg/dL Calcium 8.1 L (8.7-10.3) mg/dL Assessment and Plan Assessment: 65 yo paraplegic male with hx of chronic retention been managed with 16 Fr SPT. Admitted with AMS, UA concerning for UTI. Urology is consulted for SPT change. He is having significant sediment in the urine and leakage from his penis and around the SPT -SPT was upsized to 18 Fr, Catheter irrigated with return of sediment. His urine leakage around the catheter is also from bladder spasms, will start on Ditropan 15mg XL
--- NOTE | 2020-09-30 13:06 | P.PCN ---
Date of Procedure: 09/30/20 Preoperative Diagnosis: urinary retention Postoperative Diagnosis: same Procedure(s) Performed: suprapubic catheter change, catheter irrigation Surgeon: Eddie Hook Estimated Blood Loss (ml): 1 Pathology: none sent Condition: stable Disposition: PACU Indications for Procedure: 65-year-old male admitted to the hospital with altered mental status, UA concerning for UTI. He has a chronic suprapubic tube to manage his bladder, urology was consulted for suprapubic catheter change Description of Procedure: the previous 16-[place] catheter was removed, under sterile condition a 18-[place] catheter was placed with return of cloudy urine. The balloon was inflated with 10 mL's of saline. The catheter was irrigated using a Snow syringe some sediments was irrigated out of the bladder, the catheter was irrigated without any difficulties. Patient tolerated the procedure well
[2020-09-30 13:53] VITALS: BMI 37.0
[2020-09-30 16:30] LABS: Hemoglobin A1C 7.3 % (4.0-6.0)
[2020-09-30] MEDS ORDERED: VANCOMYCIN IV PER PHARMACY 1 EACH MISC MISCELLANE PRN (16:34)
--- NOTE | 2020-09-30 16:46 | P.HPIM ---
History of Present Illness H&P Date: 09/29/20 Chief Complaint: Change in mental status This is a 65-year-old paraplegic with past medical history of dementia, diabetes mellitus, GERD, hyperlipidemia, hypertension, seizure disorder, DVT , osteomyelitis of the coccyx, status post colostomy, neurogenic bladder status post suprapubic catheter, paraplegia since laminectomy in February 2017 and paralyzed from waist down, previous infection with MRSA/VRE and Parkinson disease, presented to the ER with change in mental status and multiple other medical issues. Patient had recently been discharged from inpatient admitted to subacute rehab . informed ER the patient had decreased oral intake for a few days and since yesterday morning he had developed increased confusion. T-max 100, normal WBC, hemoglobin 10.7, platelets 231, sodium 138, potassium 3.6, bicarb 28.3, BUN 45 , creatinine 1.3. Blood sugars currently 190s. UA reported moderate urine bacteria, greater than 182 WBCs, large leukocytes, positive nitrates moderate blood, 1+ glucose, 4+ protein. Chest x-ray reporting no cardiopulmonary disease, no change. Brain CT reported cerebral atrophy, no acute intracranial abnormality, no change. EKG reported normal sinus rhythm, nonspecific T-wave abnormality. Troponin negative 1. Denies chest pain, palpi tations or shortness of breath. Review of Systems ROS Statement: Those systems with pertinent positive or pertinent negative responses have been documented in the HPI. ROS Other: All systems not noted in ROS Statement are negative. Past Medical History Past Medical History: Dementia, Diabetes Mellitus, Deep Vein Thrombosis (DVT), Hyperlipidemia, Hypertension, Memory Impairment, Prostate Disorder Additional Past Medical History / Comment(s): Spouse states pt has pulled out IVs and other equipment and has thrown himself out of bed in the past-recommends side rails be up at all times, DVT B/L LE, insomnia, osteomeylitis- coccyx wound has had hyerbaric tx and wound vac in the past- goes to [facility] every , colostomy d/t coccyx wound, uti's, guillain barre syndrome, neurogenic bladder has suprapubic cath-last changed 08/24/20, paraplegia SINCE LAMINECTOMY FEB 15, 2017-PARALIZED WAIST DOWN, abd hernia, peg tube previously, limited ROM with neck, NIDDM now diet controlled/possible bilateral foot neuropathy. stated "that the dementia pt has also has parkinson like symptoms". 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 Supra PUBIC CATH (changed last 08/24/20), picc lines-since removed, previous peg tube Past Anesthesia/Blood Transfusion Reactions: Previous Problems w/ Anesthesia Additional Past Anesthesia/Blood Transfusion Reaction / Comment(s): when pt had 2 sx within a short time from each other ,he had diffiuclty waking up. Past blood transfusion-no reaction Past Psychological History: Anxiety, Depression Smoking Status: Former smoker Past Alcohol Use History: Rare Past Drug Use History: None Reported - Past Family History Brother(s) Family Medical History: Cancer Additional Family Medical History / Comment(s): Lung cancer Mother Additional Family Medical History / Comment(s): emphysema Father Additional Family Medical History / Comment(s): emphysema Medications and Allergies Home Medications Medication Instructions Recorded Confirmed Type Apixaban [Eliquis] 5 mg PO BID@0800,1700 07/27/17 09/28/20 History Carbidopa-Levodopa 10-100 mg 1 tab PO TID@0600,1400,2200 04/06/18 09/28/20 History [Sinemet 10-100 mg] Losartan [Cozaar] 25 mg PO DAILY@0811/05/19 09/28/20 History methocarbamoL [Robaxin] 500 mg PO TID PRN 11/05/19 09/28/20 History Hydrochlorothiazide 12.5 mg PO DAILY@0808/24/20 09/28/20 History [hydroCHLOROthiazide] Insulin Glargine/Lixisenatide 55 units SQ HS@2130 08/24/20 09/28/20 History [Soliqua 100 Unit-33 Mcg/ml Pen] Melatonin 20 mg PO HS 08/24/20 09/28/20 History Gabapentin [Neurontin] 800 mg PO TID@0600,1400,2200 09/28/20 09/28/20 History INSULIN ASPART (NovoLOG) [NovoLOG See Protocol SQ 09/28/20 09/28/20 History (formulary)] ACHS@07,11,1630,2130 Shiraz Packet 1 packet PO BID@0800,1700 09/28/20 09/28/20 History L.acidoph,Paracasei, B.lactis 1 cap PO DAILY@0800 09/28/20 09/28/20 History [Probiotic] Liquacel 30 ml PO BID@1200,2100 09/28/20 09/28/20 History Magnesium Hydroxide [Milk of 7,200 mg PO Q48H PRN 09/28/20 09/28/20 History Magnesia Concentrate] Na Phos,M-B/Na Phos,Di-Ba [Fleet 133 ml RECTAL DAILY PRN 09/28/20 09/28/20 History Adult] bisacodyL [Bisacodyl] 10 mg RECTAL DAILY PRN 09/28/20 09/28/20 History Allergies Allergy/AdvReac Type Severity Reaction Status Date / Time No Known Allergies Allergy Verified 09/28/20 23:44 Physical Exam Vitals: Vital Signs Temp Pulse Resp BP Pulse Ox 09/29/20 10:28 98.2 F 75 19 140/73 100 09/29/20 08:04 77 18 140/73 96 09/29/20 05:54 98.8 F 84 19 127/66 98 09/29/20 05:00 84 16 132/69 98 09/29/20 03:49 99.1 F 81 20 136/70 98 09/29/20 01:22 83 18 130/66 95 09/28/20 23:20 100 F H 88 19 138/75 96 Intake and Output 09/28/20 09/29/20 09/29/20 22:59 06:59 14:59 Other: Weight 123.831 kg General: [Patient awake, alert and oriented times 3. Patient in no acute distress.] HEENT: [PERRL. EOMI. No pharyngeal erythema or exudate.] Neck: [No adenopathy.] Cardiac: [Heart regular in rate and rhythm. No S3. No S4. No clicks, rubs. No murmur.] Lungs: [Clear to auscultation bilaterally.] Abdomen: [No mass. No organomegaly. Functioning Colostomy present.Bowel sounds positive all 4 quadrants, suprapubic catheter present. Extremes: Paraplegia, spastic paralysis patient has use of upper extreme. Skin:Sacral/right buttock unstageable, left calf-Stage II, right heel stage II. refer to specific sizing per nursing documentation/pictures Neurologic: [No lateralizing deficits. CN II - XII grossly intact.] Lymphatic: [No adenopathy.] Microbiology 09/29/20 01:10 Urine,Voided Urine Culture - Preliminary Results CBC & Chem 7: 09/30/20 05:22 09/30/20 05:22 Labs: Abnormal Lab Results - Last 24 Hours (Table) 09/28/20 09/28/20 09/29/20 Range/Units 23:50 23:50 01:10 RBC 4.27 L (4.30-5.90) m/uL Hgb 11.9 L (13.0-17.5) gm/dL Hct 37.7 L (39.0-53.0) % BUN 45 H (9-20) mg/dL Glucose 255 H (74-99) mg/dL AST 16 L (17-59) U/L Urine pH 8.5 H (5.0-8.0) Urine Protein 4+ H (Negative) Urine Glucose (UA) 1+ H (Negative) Urine Blood Moderate H (Negative) Ur Leukocyte Esterase Large H (Negative) Urine RBC >182 H (0-5) /hpf Urine WBC >182 H (0-5) /hpf Urine WBC Clumps Many H (None) /hpf Urine Bacteria Moderate H (None) /hpf Urine Mucus Rare H (None) /hpf Microbiology - Last 24 Hours (Table) 09/29/20 01:10 Urine Culture - Preliminary Urine,Voided Assessment and Plan Assessment: Sepsis secondary to recurrent Acute UTI in a patient with an SP catheter, unknown when last changed at [facility]. Acute metabolic encephalopathy secondary to acute UTI, related to chronic suprapubic catheter, present on admission. Culture pending Dehydration secondary to infection Acute renal failure secondary to the above Recently admitted with Acute toxic encephalopathy secondary to suspected side effect of drug, Levaquin. Delirium multifactorial secondary to dementia, Parkinson's disease General medical debility Chronic Pressure ulcers of the right ischium,buttock, left calf stage II, right kaufman & heel, stage II Chronic Urinary retention with SP catheter History of Bladder wall thickness per CT, urology recommending outpatient cystoscopy Diabetes mellitus, hyperglycemia Hypertension Hyperlipidemia GERD History of seizure disorder on Keppra History of DVT on Eliquis Paraplegia Plan: Continue on current medication regime ,monitoring and symptomatic treatment. Urine and blood cultures pending. IV antibiotic, Rocephin ordered. IV fluid hydration. Specialty bed ordered related to wounds. Wound care team consult ordered. Urology ordered to change SP catheter. The impression and plan of care has been dictated as directed. : I performed a history and examination of this patient, discussed the same with the dictator. I agree with the dictator's note ,documented as a scribe. Any additional findings or plans will be noted.
[2020-09-30] MEDS: AMPICILLIN-SULBACTAM 3 GM in SODIUM CHLORIDE 0.9% 100 ML IVPB SCH (16:54)
[2020-09-30] MEDS ORDERED: VANCOMYCIN 2,000 MG in SODIUM CHLORIDE 0.9% 500 ML 500 ML IVPB SCH (17:00)
--- NOTE | 2020-09-30 17:05 | P.PN ---
Subjective Progress Note Date: 09/30/20 This is a 65-year-old paraplegic with past medical history of dementia, diabetes mellitus, GERD, hyperlipidemia, hypertension, seizure disorder, DVT , osteomyelitis of the coccyx, status post colostomy, neurogenic bladder status post suprapubic catheter, paraplegia since laminectomy in February 2017 and pa ralyzed from waist down, previous infection with MRSA/VRE and Parkinson disease, presented to the ER with change in mental status and multiple other medical issues. Patient had recently been discharged from inpatient admitted to subacute rehab . informed ER the patient had decreased oral intake for a few days and since yesterday morning he had developed increased confusion. T-max 100, normal WBC, hemoglobin 10.7, platelets 231, sodium 138, potassium 3.6, bicarb 28.3, BUN 45 , creatinine 1.3. Blood sugars currently 190s. UA reported moderate urine bacteria, greater than 182 WBCs, large leukocytes, positive nitrates moderate blood, 1+ glucose, 4+ protein. Chest x-ray reporting no cardiopulmonary disease, no change. Brain CT reported cerebral atrophy, no acute intracranial abnormality, no change. EKG reported normal sinus rhythm, nonspecific T-wave abnormality. Troponin negative 1. Denies chest pain, palpitations or shortness of breath. 09/30/2020 suprapubic catheter changed this morning per urology, tolerated procedure well. BUN down to 34, creatinine trending up, 1.3. Blood sugars better controlled. Maintained on IV antibiotics, IV fluids. Afebrile, normal WBC. Cultures pending. Reports didn't sleep well. Denies chest pain, palpitations or shortness of breath. Objective - Vital Signs Vital signs: Vital Signs Temp 98.2 F 09/30/20 11:17 Pulse 71 09/30/20 11:17 Resp 16 09/30/20 11:17 BP 158/71 09/30/20 11:17 Pulse Ox 96 09/30/20 11:17 Intake & Output 09/29/20 09/30/20 09/30/20 18:59 06:59 18:59 Intake Total 1050 Output Total 350 700 Balance 700 -700 Weight 123.831 kg 123.831 kg Intake: Intake, IV Titration 950 Amount Sodium Chloride 0.9% 1, 900 000 ml @ 75 mls/hr IV . [id number] [facility] Rx#:[id number] cefTRIAXone 1 gm In 50 Sodium Chloride 0.9% 50 ml @ 100 mls/hr IVPB Q24H [facility] Rx#:[id number] Oral 100 Output: Urine 350 Stool 700 Other: Voiding Method Indwelling Catheter Indwelling Catheter - Exam General: Awake, alert and oriented times 3, no acute distress.] HEENT: [PERRL. EOMI. No pharyngeal erythema or exudate.] Neck: [No adenopathy.] Cardiac: [Heart regular in rate and rhythm. No S3. No S4. No clicks, rubs. No murmur.] Lungs: [Clear to auscultation bilaterally.] Abdomen: [No mass. No organomegaly. Functioning Colostomy present.Bowel sounds positive all 4 quadrants, suprapubic catheter present. Extremes: Paraplegia, spastic paralysis patient has use of upper extreme. Skin:Sacral/right buttock unstageable, left calf-Stage II, right heel stage II. refer to specific sizing per nursing documentation/pictures Neurologic: [Paraplegic, No lateralizing deficits. CN II - XII grossly intact,] - Labs CBC & Chem 7: 09/30/20 05:22 09/30/20 05:22 Labs: Abnormal Lab Results - Last 24 Hours (Table) 09/29/20 09/30/20 09/30/20 Range/Units 17:15 00:00 05:22 RBC (4.30-5.90) m/uL Hgb (13.0-17.5) gm/dL Hct (39.0-53.0) % BUN (9.0-27.0) mg/dL Est GFR (CKD-EPI)NonAf (60.0-200.0) BUN/Creatinine Ratio (12.00-20.00) Ratio Glucose (70-110) mg/dL POC Glucose (mg/dL) 191 H 186 H (75-99) mg/dL Hemoglobin A1c 7.3 H (4.0-6.0) % Calcium (8.7-10.3) mg/dL 09/30/20 09/30/20 09/30/20 Range/Units 05:22 05:22 05:58 RBC 3.66 L (4.30-5.90) m/uL Hgb 10.7 L (13.0-17.5) gm/dL Hct 32.8 L (39.0-53.0) % BUN 34.0 H (9.0-27.0) mg/dL Est GFR (CKD-EPI)NonAf 56.5 L (60.0-200.0) BUN/Creatinine Ratio 26.15 H (12.00-20.00) Ratio Glucose 153 H (70-110) mg/dL POC Glucose (mg/dL) 177 H (75-99) mg/dL Hemoglobin A1c (4.0-6.0) % Calcium 8.1 L (8.7-10.3) mg/dL 09/30/20 Range/Units 12:03 RBC (4.30-5.90) m/uL Hgb (13.0-17.5) gm/dL Hct (39.0-53.0) % BUN (9.0-27.0) mg/dL Est GFR (CKD-EPI)NonAf (60.0-200.0) BUN/Creatinine Ratio (12.00-20.00) Ratio Glucose (70-110) mg/dL POC Glucose (mg/dL) 187 H (75-99) mg/dL Hemoglobin A1c (4.0-6.0) % Calcium (8.7-10.3) mg/dL Microbiology - Last 24 Hours (Table) 09/29/20 01:10 Urine Culture - Preliminary Urine,Voided Gram Neg Bacilli 09/28/20 23:35 Blood Culture - Preliminary Blood No Growth after 24 hours 09/28/20 23:50 Blood Culture - Preliminary Blood No Growth after 24 hours Assessment and Plan Assessment: Sepsis secondary to recurrent Acute UTI in a patient with an SP catheter, unknown when last changed at [facility]. SP catheter changed out as per urology 09/30/20. Acute metabolic encephalopathy secondary to acute UTI, related to chronic suprapubic catheter, present on admission. Improved. Culture pending Dehydration secondary to infection Acute renal failure secondary to the above Recently admitted with Acute toxic encephalopathy secondary to suspected side effect of drug, Levaquin. Delirium multifactorial secondary to dementia, Parkinson's disease General medical debility Chronic Pressure ulcers of the right ischium,buttock, left calf stage II, right kaufman & heel, stage II Chronic Urinary retention with SP catheter History of Bladder wall thickness per CT, urology recommending outpatient cystoscopy Diabetes mellitus, hyperglycemia, hemoglobin A1c 7.3 Hypertension Hyperlipidemia GERD History of seizure disorder on Keppra History of DVT on Eliquis Paraplegia Plan: Continue on current medication regime ,monitoring and symptomatic treatment. Creatinine rising, hydrochlorothiazide, cozaar discontinued. Close monitoring of renal function with repeat labs ordered for a.m. Urine and blood cultures pending. Obtain repeat urine culture from [facility] [place] as SP catheter changed this morning. IV antibiotics adjusted to Unasyn. ID consulted .IV fluid hydration. Wound care team consult ordered. The impression and plan of care has been dictated as directed. : I performed a history and examination of this patient, discussed the same with the dictator. I agree with the dictator's note ,documented as a scribe. Any additional findings or plans will be noted.
[2020-09-30 17:23] LABS: Glucose,Whole Blood 190 mg/dL (75-99)
[2020-09-30] MEDS: PANTOPRAZOLE 40 MG/10 ML VIAL IVP SCH (17:53)
[2020-09-30] MEDS: MELATONIN 3 MG TABLET PO SCH (21:17)
[2020-10-01 05:31] LABS: Basophils % (A) 1 %; Eosinophils # (A) 0.2 k/uL (0-0.7); Eosinophils % (A) 5 %; HCT 30.5 % (39.0-53.0); Lymphocytes # (A) 0.8 k/uL (1.0-4.8); Lymphocytes % (A) 16 %; MCH 28.6 pg (25.0-35.0); MCHC 32.7 g/dL (31.0-37.0); MCV 87.5 fL (80.0-100.0); Mean Platelet Volume 6.8; Monocytes # (A) 0.3 k/uL (0-1.0); Monocytes % (A) 6 %; Neutrophils # (A) 3.3 k/uL (1.3-7.7); Neutrophils % (A) 71 %; Platelet Count 231 k/uL (150-450); Poikilocytosis Slight; RBC 3.48 m/uL (4.30-5.90); RDW 14.5 % (11.5-15.5); WBC 4.7 k/uL (3.8-10.6)
[2020-10-01 05:57] LABS: Glucose,Whole Blood 160 mg/dL (75-99)
[2020-10-01 06:03] LABS: Glucose,Whole Blood 169 mg/dL (75-99)
[2020-10-01] MEDS: AMPICILLIN-SULBACTAM 3 GM in SODIUM CHLORIDE 0.9% 100 ML IVPB SCH ×4 (06:56→17:36)
[2020-10-01] MEDS: HEPARIN SODIUM,PORCINE/PF 5,000 UNIT/0.5 ML SYRINGE SQ SCH ×3 (06:56→15:27)
[2020-10-01] MEDS: INSULIN ASPART (NovoLOG) 100 UNIT/ML VIAL SQ SCH ×4 (06:57→17:35)
[2020-10-01] MEDS: CARBIDOPA-LEVODOPA 10-100 MG 1 EACH TAB PO SCH ×3 (06:57→21:44)
[2020-10-01] MEDS: GABAPENTIN 400 MG CAP PO SCH ×3 (06:57→20:48)
[2020-10-01] MEDS: SODIUM CHLORIDE 0.9% 1,000 ML IV SCH ×2 (06:57→13:47)
[2020-10-01] MEDS: methocarbamoL 500 MG TAB PO SCH ×3 (08:17→21:44)
[2020-10-01] MEDS: PANTOPRAZOLE 40 MG/10 ML VIAL IVP SCH (08:17)
[2020-10-01] MEDS: OXYBUTYNIN 15 MG TAB.ER.24 PO SCH (08:18)
[2020-10-01 12:08] LABS: Glucose,Whole Blood 202 mg/dL (75-99)
[2020-10-01 12:16] LABS: African American GFR (CKD) 80.1 (60.0-200.0); BUN/Creat Ratio 25.45 Ratio (12.00-20.00); Calcium 7.8 mg/dL (8.7-10.3); Non-African American GFR(CKD) 69.1 (60.0-200.0); Potassium 3.5 mmol/L (3.5-5.5)
--- NOTE | 2020-10-01 12:39 | P.PN ---
Subjective Progress Note Date: 10/01/20 This is a 65-year-old paraplegic with past medical history of dementia, diabetes mellitus, GERD, hyperlipidemia, hypertension, seizure disorder, DVT , osteomyelitis of the coccyx, status post colostomy, neurogenic bladder status post suprapubic catheter, paraplegia since laminectomy in February 2017 and pa ralyzed from waist down, previous infection with MRSA/VRE and Parkinson disease, presented to the ER with change in mental status and multiple other medical issues. Patient had recently been discharged from inpatient admitted to subacute rehab . informed ER the patient had decreased oral intake for a few days and since yesterday morning he had developed increased confusion. T-max 100, normal WBC, hemoglobin 10.7, platelets 231, sodium 138, potassium 3.6, bicarb 28.3, BUN 45 , creatinine 1.3. Blood sugars currently 190s. UA reported moderate urine bacteria, greater than 182 WBCs, large leukocytes, positive nitrates moderate blood, 1+ glucose, 4+ protein. Chest x-ray reporting no cardiopulmonary disease, no change. Brain CT reported cerebral atrophy, no acute intracranial abnormality, no change. EKG reported normal sinus rhythm, nonspecific T-wave abnormality. Troponin negative 1. Denies chest pain, palpitations or shortness of breath. 09/30/2020 suprapubic catheter changed this morning per urology, tolerated procedure well. BUN down to 34, creatinine trending up, 1.3. Blood sugars better controlled. Maintained on IV antibiotics, IV fluids. Afebrile, normal WBC. Cultures pending. Reports didn't sleep well. Denies chest pain, palpitations or shortness of breath. 10/01/2020 maintained on Unasyn IV antibiotics.initial urine culture reporting gram-negative bacilli .Afebrile, normal WBC. Repeat urine culture post change of SP catheter pending. Creatinine pending. Leaking around SP catheter secondary to bladder spasms, Ditropan added to med regimen yesterday. Staff reports patient was disoriented to place last night, thought he was in [place]. Objective - Vital Signs Vital signs: Vital Signs Temp 98.6 F 10/01/20 05:00 Pulse 69 10/01/20 05:00 Resp 20 10/01/20 05:00 BP 130/60 10/01/20 05:00 Pulse Ox 96 10/01/20 05:00 Intake & Output 09/30/20 10/01/20 10/01/20 18:59 06:59 18:59 Intake Total 300 Output Total 1000 200 Balance -1000 100 Weight 123.831 kg Intake: Oral 300 Output: Urine 200 Suprapubic 100 Stool 1000 Other: Voiding Method Indwelling Catheter Indwelling Catheter - Exam General: Awake, alert and oriented times 2, disoriented to year.sleepy,no acute distress.] HEENT: [PERRL. EOMI. No pharyngeal erythema or exudate.] Neck: [No adenopathy.] Cardiac: [Heart regular in rate and rhythm. No S3. No S4. No clicks, rubs. No murmur.] Lungs: [Clear to auscultation bilaterally.] Abdomen: [No mass. No organomegaly. Functioning Colostomy present.Bowel sounds positive all 4 quadrants, suprapubic catheter present-leaking around catheter, abd pads present with brief. Extremes: Paraplegia, spastic paralysis patient has use of upper extreme. Skin:Sacral/right buttock unstageable, left calf-Stage II, right heel stage II. refer to specific sizing per nursing documentation/pictures Neurologic: [Paraplegic, No lateralizing deficits. CN II - XII grossly intact,] Microbiology 09/30/20 17:57 Urine,Catheterized Urine Culture - Preliminary 09/28/20 23:35 Blood Blood Culture - Preliminary No Growth after 48 hours 09/28/20 23:50 Blood Blood Culture - Preliminary No Growth after 48 hours 09/29/20 01:10 Urine,Voided Urine Culture - Preliminary Gram Neg Bacilli - Labs CBC & Chem 7: 10/01/20 04:35 10/01/20 04:35 Labs: Abnormal Lab Results - Last 24 Hours (Table) 09/30/20 09/30/20 09/30/20 Range/Units 05:22 05:22 12:03 RBC (4.30-5.90) m/uL Hgb (13.0-17.5) gm/dL Hct (39.0-53.0) % Lymphocytes # (1.0-4.8) k/uL BUN 34.0 H (9.0-27.0) mg/dL Est GFR (CKD-EPI)NonAf 56.5 L (60.0-200.0) BUN/Creatinine Ratio 26.15 H (12.00-20.00) Ratio Glucose 153 H (70-110) mg/dL POC Glucose (mg/dL) 187 H (75-99) mg/dL Hemoglobin A1c 7.3 H (4.0-6.0) % Calcium 8.1 L (8.7-10.3) mg/dL 09/30/20 10/01/20 10/01/20 Range/Units 17:19 00:05 04:35 RBC 3.48 L (4.30-5.90) m/uL Hgb 10.0 L (13.0-17.5) gm/dL Hct 30.5 L (39.0-53.0) % Lymphocytes # 0.8 L (1.0-4.8) k/uL BUN (9.0-27.0) mg/dL Est GFR (CKD-EPI)NonAf (60.0-200.0) BUN/Creatinine Ratio (12.00-20.00) Ratio Glucose (70-110) mg/dL POC Glucose (mg/dL) 190 H 160 H (75-99) mg/dL Hemoglobin A1c (4.0-6.0) % Calcium (8.7-10.3) mg/dL 10/01/20 Range/Units 05:50 RBC (4.30-5.90) m/uL Hgb (13.0-17.5) gm/dL Hct (39.0-53.0) % Lymphocytes # (1.0-4.8) k/uL BUN (9.0-27.0) mg/dL Est GFR (CKD-EPI)NonAf (60.0-200.0) BUN/Creatinine Ratio (12.00-20.00) Ratio Glucose (70-110) mg/dL POC Glucose (mg/dL) 169 H (75-99) mg/dL Hemoglobin A1c (4.0-6.0) % Calcium (8.7-10.3) mg/dL Microbiology - Last 24 Hours (Table) 09/30/20 17:57 Urine Culture - Preliminary Urine,Catheterized 09/28/20 23:35 Blood Culture - Preliminary Blood No Growth after 48 hours 09/28/20 23:50 Blood Culture - Preliminary Blood No Growth after 48 hours 09/29/20 01:10 Urine Culture - Preliminary Urine,Voided Gram Neg Bacilli Assessment and Plan Assessment: Sepsis secondary to recurrent Acute UTI, gram-negative bacilli in a patient with an SP catheter, unknown when last changed at [facility]. SP catheter changed out as per urology 09/30/20. Acute metabolic encephalopathy secondary to acute UTI, related to chronic suprapubic catheter, present on admission. Improved. Culture pending Dehydration secondary to infection Acute renal failure secondary to the above Recently admitted with Acute toxic encephalopathy secondary to suspected side effect of drug, Levaquin. Delirium multifactorial secondary to dementia, Parkinson's disease General medical debility Chronic Pressure ulcers of the right ischium,buttock, left calf stage II, right kaufman & heel, stage II Chronic Urinary retention with SP catheter History of Bladder wall thickness per CT, urology recommending outpatient cystoscopy Diabetes mellitus, hyperglycemia, hemoglobin A1c 7.3 Hypertension Hyperlipidemia GERD History of seizure disorder on Keppra History of DVT on Eliquis Paraplegia Plan: Continue on current medication regime ,monitoring and symptomatic treatm ent. Creatinine /BMP pending. Initial Urine culture finalizing. Repeat urine culture in progress.Blood cultures pending. Maintained IV antibiotics. ID and Wound care team consults in place, recommendations Pending. Discharge planning in progress soon, pending cxs. The impression and plan of care has been dictated as directed. : I performed a history and examination of this patient, discussed the same with the dictator. I agree with the dictator's note ,documented as a scribe. Any additional findings or plans will be noted.
[2020-10-01 17:24] LABS: Glucose,Whole Blood 182 mg/dL (75-99)
[2020-10-01] MEDS: MELATONIN 3 MG TABLET PO SCH (20:48)
--- NOTE | 2020-10-01 22:32 | P.CONS ---
History of Present Illness - Reason for Consult Consult date: 10/01/20 Recurrent urinary tract infection Requesting physician: Lilly Kincaid - Chief Complaint mental status changes x few days - History of Present Illness Patient is a 65-year male with a past medical history significant for recurrent urinary tract infection urinary retention requiring chronic Hagan catheter patient has been brought into the ER on the for evaluation of mental status changes patient noticed patient to have decreased oral intake for few days before presenting to the hospital patient was more disoriented and confused there was no clear history of any fever or any chills patient on presentation to the hospital did have a low-grade fever of 100 Fahrenheit patient did have a normal white count BUN was slightly elevated creatinine was normal liver exams are normal did have a positive UA with large leukocyte esterase more than 1 2 WBC urine cultures currently showing gram-negative patient is being treated with Unasyn 3 g every 6 hours infection was consulted with concern for recurrent urinary tract infection patient has been evaluated by urology yesterday and this patient who did have a irrigation and change of his suprapubic catheter as of this morning the patient is feeling better patient denies having any headache to me no chest pain shortness of breath no cough no abdominal pain and no diarrhea Review of Systems Positive point has been mentioned in the HPI rest of the systems are negative Past Medical History Past Medical History: Dementia, Diabetes Mellitus, Deep Vein Thrombosis (DVT), Hyperlipidemia, Hypertension, Memory Impairment, Prostate Disorder Additional Past Medical History / Comment(s): Spouse states pt has pulled out IVs and other equipment and has thrown himself out of bed in the past-recommends side rails be up at all times, DVT B/L LE, insomnia, osteomeylitis- coccyx wound has had hyerbaric tx and wound vac in the past- goes to [facility] every , colostomy d/t coccyx wound, uti's, guillain barre syndrome, neurogenic bladder has suprapubic cath-last changed 08/24/20, paraplegia SINCE LAMINECTOMY FEB 15, 2017-PARALIZED WAIST DOWN, abd hernia, peg tube previously, limited ROM with neck, NIDDM now diet controlled/possible bilateral foot neuropathy. stated "that the dementia pt has also has parkinson like symptoms". 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 Supra PUBIC CATH (changed last 08/24/20), picc lines-since removed, previous peg tube Past Anesthesia/Blood Transfusion Reactions: Previous Problems w/ Anesthesia Additional Past Anesthesia/Blood Transfusion Reaction / Comm: when pt had 2 sx within a short time from each other ,he had diffiuclty waking up. Past blood transfusion-no reaction Past Psychological History: Anxiety, Depression Smoking Status: Former smoker Past Alcohol Use History: Rare Past Drug Use History: None Reported - Past Family History Brother(s) Family Medical History: Cancer Additional Family Medical History / Comment(s): Lung cancer Mother Additional Family Medical History / Comment(s): emphysema Father Additional Family Medical History / Comment(s): emphysema Medications and Allergies Home Medications Medication Instructions Recorded Confirmed Type Apixaban [Eliquis] 5 mg PO BID@0800,1700 07/27/17 09/28/20 History Carbidopa-Levodopa 10-100 mg 1 tab PO TID@0600,1400,2200 04/06/18 09/28/20 History [Sinemet 10-100 mg] Losartan [Cozaar] 25 mg PO DAILY@0800 11/05/19 09/28/20 History methocarbamoL [Robaxin] 500 mg PO TID PRN 11/05/19 09/28/20 History Hydrochlorothiazide 12.5 mg PO DAILY@0800 08/24/20 09/28/20 History [hydroCHLOROthiazide] Insulin Glargine/Lixisenatide 55 units SQ HS@212908/24/20 09/28/20 History [Soliqua 100 Unit-33 Mcg/ml Pen] Melatonin 20 mg PO HS 08/24/20 09/28/20 History Gabapentin [Neurontin] 800 mg PO TID@0600,1400,2200 09/28/20 09/28/20 History INSULIN ASPART (NovoLOG) [NovoLOG See Protocol SQ 09/28/20 09/28/20 History (formulary)] ACHS@07,11,1630,2130 Shiraz Packet 1 packet PO BID@0800,1700 09/28/20 09/28/20 History L.acidoph,Paracasei, B.lactis 1 cap PO DAILY@0800 09/28/20 09/28/20 History [Probiotic] Liquacel 30 ml PO BID@1200,2100 09/28/20 09/28/20 History Magnesium Hydroxide [Milk of 7,200 mg PO Q48H PRN 09/28/20 09/28/20 History Magnesia Concentrate] Na Phos,M-B/Na Phos,Di-Ba [Fleet 133 ml RECTAL DAILY PRN 09/28/20 09/28/20 History Adult] bisacodyL [Bisacodyl] 10 mg RECTAL DAILY PRN 09/28/20 09/28/20 History Allergies Allergy/AdvReac Type Severity Reaction Status Date / Time levofloxacin [From Levaquin] Allergy Unknown Verified 09/30/20 16:39 Physical Exam Vitals: Vital Signs Temp Pulse Resp BP Pulse Ox 10/01/20 11:12 97.6 F 67 16 120/74 99 10/01/20 05:00 98.6 F 69 20 130/60 96 09/30/20 19:40 98.1 F 69 20 117/65 97 Intake and Output 10/01/20 10/01/20 10/01/20 06:59 14:59 22:59 Intake Total 100 Output Total 200 Balance -100 Intake: Oral 100 Output: Urine 200 Suprapubic 100 Other: Voiding Method Indwelling Catheter GENERAL DESCRIPTION: Elderly male lying in bed, no distress. No tachypnea or accessory muscle of respiration use. HEENT: Shows Pallor , no scleral icterus. Oral mucous membrane is dry. No pharyngeal erythema or thrush NECK: Trachea central, no thyromegaly. LUNGS: Unlabored breathing. Decreased breath sounds at the bases. No wheeze or crackle. HEART: S1, S2, regular rate and rhythm. No loud murmur ABDOMEN: Soft, no tenderness , guarding or rigidity, no organomegaly EXTREMITIES: Diffuse swelling lower extremity SKIN: No rash, no masses palpable. NEUROLOGICAL: The patient is awake, alert, oriented x3, mood and affect normal. Results CBC & Chem 7: 10/01/20 04:35 10/01/20 04:35 Labs: Abnormal Lab Results - Last 24 Hours (Table) 09/30/20 09/30/20 10/01/20 Range/Units 05:22 17:19 00:05 RBC (4.30-5.90) m/uL Hgb (13.0-17.5) gm/dL Hct (39.0-53.0) % Lymphocytes # (1.0-4.8) k/uL BUN (9.0-27.0) mg/dL BUN/Creatinine Ratio (12.00-20.00) Ratio Glucose (70-110) mg/dL POC Glucose (mg/dL) 190 H 160 H (75-99) mg/dL Hemoglobin A1c 7.3 H (4.0-6.0) % Calcium (8.7-10.3) mg/dL 10/01/20 10/01/20 10/01/20 Range/Units 04:35 04:35 05:50 RBC 3.48 L (4.30-5.90) m/uL Hgb 10.0 L (13.0-17.5) gm/dL Hct 30.5 L (39.0-53.0) % Lymphocytes # 0.8 L (1.0-4.8) k/uL BUN 28.0 H (9.0-27.0) mg/dL BUN/Creatinine Ratio 25.45 H (12.00-20.00) Ratio Glucose 153 H (70-110) mg/dL POC Glucose (mg/dL) 169 H (75-99) mg/dL Hemoglobin A1c (4.0-6.0) % Calcium 7.8 L (8.7-10.3) mg/dL 10/01/20 Range/Units 12:04 RBC (4.30-5.90) m/uL Hgb (13.0-17.5) gm/dL Hct (39.0-53.0) % Lymphocytes # (1.0-4.8) k/uL BUN (9.0-27.0) mg/dL BUN/Creatinine Ratio (12.00-20.00) Ratio Glucose (70-110) mg/dL POC Glucose (mg/dL) 202 H (75-99) mg/dL Hemoglobin A1c (4.0-6.0) % Calcium (8.7-10.3) mg/dL Microbiology - Last 24 Hours (Table) 09/30/20 17:57 Urine Culture - Preliminary Urine,Catheterized 09/28/20 23:35 Blood Culture - Preliminary Blood No Growth after 48 hours 09/28/20 23:50 Blood Culture - Preliminary Blood No Growth after 48 hours 09/29/20 01:10 Urine Culture - Preliminary Urine,Voided Gram Neg Bacilli Assessment and Plan Assessment: patient presented to hospital with mental status changes disorientation weakness this patient did have a low-grade fever significantly positive UA sources cath eter associated infection in this patient who did have a suprapubic catheter which has been changed by urology, and his Hagan catheter is the likely risk for his recurrent infection- (1) UTI (urinary tract infection) Current Visit: Yes Status: Acute Code(s): N39.0 - URINARY TRACT INFECTION, SITE NOT SPECIFIED SNOMED Code(s): 53392772 Plan: 1-patient is currently covered with Unasyn to continue while waiting for the culture to finalize 2-more meticulous care of his Hagan catheter and frequent change may help prevent these recurrent UTIs We will follow on clinical condition and cultures to further adjust medication if needed Thank you for this consultation we will follow the patient along with you Time with Patient: Greater than 30
[2020-10-01] MEDS ORDERED: HEPARIN SODIUM,PORCINE/PF 5,000 UNIT/0.5 ML SYRINGE SQ ONE (23:59)
[2020-10-02] MEDS: HEPARIN SODIUM,PORCINE/PF 5,000 UNIT/0.5 ML SYRINGE SQ SCH ×4 (00:05→23:20)
[2020-10-02] MEDS: SODIUM CHLORIDE 0.9% 1,000 ML IV SCH ×2 (00:05→16:11)
[2020-10-02] MEDS: AMPICILLIN-SULBACTAM 3 GM in SODIUM CHLORIDE 0.9% 100 ML IVPB SCH ×5 (00:05→23:20)
[2020-10-02 00:31] LABS: Glucose,Whole Blood 151 mg/dL (75-99)
[2020-10-02] MEDS: INSULIN ASPART (NovoLOG) 100 UNIT/ML VIAL SQ SCH ×5 (01:25→20:21)
[2020-10-02] MEDS: CARBIDOPA-LEVODOPA 10-100 MG 1 EACH TAB PO SCH ×3 (05:34→21:54)
[2020-10-02] MEDS: GABAPENTIN 400 MG CAP PO SCH ×3 (05:34→21:54)
[2020-10-02 06:20] LABS: Glucose,Whole Blood 167 mg/dL (75-99)
[2020-10-02] MEDS: PANTOPRAZOLE 40 MG/10 ML VIAL IVP SCH (09:13)
[2020-10-02] MEDS: OXYBUTYNIN 15 MG TAB.ER.24 PO SCH (09:13)
[2020-10-02] MEDS: methocarbamoL 500 MG TAB PO SCH ×3 (09:13→21:54)
[2020-10-02 09:45] LABS: HCT 34.3 % (39.0-53.0); HGB 10.9 gm/dL (13.0-17.5); Hypochromasia Slight; MCH 28.3 pg (25.0-35.0); MCHC 31.7 g/dL (31.0-37.0); MCV 89.3 fL (80.0-100.0); Platelet Count 228 k/uL (150-450); RBC 3.84 m/uL (4.30-5.90); WBC 4.3 k/uL (3.8-10.6)
--- NOTE | 2020-10-02 12:08 | P.PN ---
Subjective Progress Note Date: 10/02/20 This is a 65-year-old paraplegic with past medical history of dementia, diabetes mellitus, GERD, hyperlipidemia, hypertension, seizure disorder, DVT , osteomyelitis of the coccyx, status post colostomy, neurogenic bladder status post suprapubic catheter, paraplegia since laminectomy in February 2017 and pa ralyzed from waist down, previous infection with MRSA/VRE and Parkinson disease, presented to the ER with change in mental status and multiple other medical issues. Patient had recently been discharged from inpatient admitted to subacute rehab . informed ER the patient had decreased oral intake for a few days and since yesterday morning he had developed increased confusion. T-max 100, normal WBC, hemoglobin 10.7, platelets 231, sodium 138, potassium 3.6, bicarb 28.3, BUN 45 , creatinine 1.3. Blood sugars currently 190s. UA reported moderate urine bacteria, greater than 182 WBCs, large leukocytes, positive nitrates moderate blood, 1+ glucose, 4+ protein. Chest x-ray reporting no cardiopulmonary disease, no change. Brain CT reported cerebral atrophy, no acute intracranial abnormality, no change. EKG reported normal sinus rhythm, nonspecific T-wave abnormality. Troponin negative 1. Denies chest pain, palpitations or shortness of breath. 09/30/2020 suprapubic catheter changed this morning per urology, tolerated procedure well. BUN down to 34, creatinine trending up, 1.3. Blood sugars better controlled. Maintained on IV antibiotics, IV fluids. Afebrile, normal WBC. Cultures pending. Reports didn't sleep well. Denies chest pain, palpitations or shortness of breath. 10/01/2020 maintained on Unasyn IV antibiotics.initial urine culture reporting gram-negative bacilli .Afebrile, normal WBC. Repeat urine culture post change of SP catheter pending. Creatinine pending. Leaking around SP catheter secondary to bladder spasms, Ditropan added to med regimen yesterday. Staff reports patient was disoriented to place last night, thought he was in [place]. 10/02/2020 continues on IV antibiotics of Unasyn, afebrile. Labs pending. Initial urine culture reporting Proteus Mirabellis. Repeat culture in progress. Evaluated by ID with recommendations noted and appreciated. Maintained on Ditropan, leaking continues around SP catheter. Objective - Vital Signs Vital signs: Vital Signs Temp 97.3 F L 10/02/20 04:45 Pulse 65 10/02/20 04:45 Resp 20 10/02/20 04:45 BP 150/77 10/02/20 04:45 Pulse Ox 98 10/02/20 04:45 Intake & Output 10/01/20 10/02/20 10/02/20 18:59 06:59 18:59 Intake Total 1100 1460 Output Total 900 Balance 1100 560 Intake: Intake, IV Titration 1100 1100 Amount Ampicillin-Sulbactam 3 gm 200 200 In Sodium Chloride 0.9% 100 ml @ 200 mls/hr IVPB Q6HR [facility] Rx#:[id number] Sodium Chloride 0.9% 1, 900 900 000 ml @ 75 mls/hr IV . [id number] [facility] Rx#:[id number] Oral 360 Output: Urine 900 Suprapubic 900 Other: Voiding Method Indwelling Catheter Indwelling Catheter - Exam General: Awake, alert and oriented times 2, disoriented to place.no acute distress.] HEENT: [PERRL. EOMI. No pharyngeal erythema or exudate.] Neck: [No adenopathy.] Cardiac: [Heart regular in rate and rhythm. No S3. No S4. No clicks, rubs. No murmur.] Lungs: [Clear to auscultation bilaterally.] Abdomen: [No mass. No organomegaly. Functioning Colostomy present.Bowel sounds positive all 4 quadrants, suprapubic catheter present-leaking around catheter, abd pads present with brief. Extremes: Paraplegia, spastic paralysis patient has use of upper extreme. Skin:Sacral/right buttock unstageable, left calf-Stage II, right heel stage II. refer to specific sizing per nursing documentation/pictures Neurologic: [Paraplegic, No lateralizing deficits. CN II - XII grossly intact,] Microbiology 09/28/20 23:35 Blood Blood Culture - Preliminary No Growth after 72 hours 09/28/20 23:50 Blood Blood Culture - Preliminary No Growth after 72 hours 09/29/20 01:10 Urine,Voided Urine Culture - Final Proteus mirabilis 09/30/20 17:57 Urine,Catheterized Urine Culture - Preliminary - Labs CBC & Chem 7: 10/02/20 05:43 10/01/20 04:35 Labs: Abnormal Lab Results - Last 24 Hours (Table) 10/01/20 10/01/20 10/01/20 Range/Units 04:35 12:04 17:22 BUN 28.0 H (9.0-27.0) mg/dL BUN/Creatinine Ratio 25.45 H (12.00-20.00) Ratio Glucose 153 H (70-110) mg/dL POC Glucose (mg/dL) 202 H 182 H (75-99) mg/dL Calcium 7.8 L (8.7-10.3) mg/dL 10/02/20 10/02/20 Range/Units 00:17 06:06 BUN (9.0-27.0) mg/dL BUN/Creatinine Ratio (12.00-20.00) Ratio Glucose (70-110) mg/dL POC Glucose (mg/dL) 151 H 167 H (75-99) mg/dL Calcium (8.7-10.3) mg/dL Microbiology - Last 24 Hours (Table) 09/28/20 23:35 Blood Culture - Preliminary Blood No Growth after 72 hours 09/28/20 23:50 Blood Culture - Preliminary Blood No Growth after 72 hours 09/29/20 01:10 Urine Culture - Final Urine,Voided Proteus mirabilis 09/30/20 17:57 Urine Culture - Preliminary Urine,Catheterized Assessment and Plan Assessment: Sepsis secondary to recurrent Acute UTI, Proteus Mirabilis in a patient with an SP catheter,SP catheter changed out as per urology 09/30/20. Acute metabolic encephalopathy secondary to acute UTI, related to chronic suprapubic catheter, present on admission. Improved. Repeat Culture pending Dehydration secondary to infection Acute renal failure secondary to the above Recently admitted with Acute toxic encephalopathy secondary to suspected side effect of drug, Levaquin. Delirium multifactorial secondary to dementia, Parkinson's disease General medical debility Chronic Pressure ulcers of the right ischium,buttock, left calf stage II, right kaufman & heel, stage II Chronic Urinary retention with SP catheter History of Bladder wall thickness per CT, urology recommending outpatient cystoscopy Diabetes mellitus, hyperglycemia, hemoglobin A1c 7.3 Hypertension Hyperlipidemia GERD History of seizure disorder on Keppra History of DVT on Eliquis Paraplegia Plan: Continue on current medication regime ,monitoring and symptomatic treatment. Repeat urine culture in progress.Blood cultures pending. Discharge planning in progress soon. The impression and plan of care has been dictated as directed. : I performed a history and examination of this patient, discussed the same with the dictator. I agree with the dictator's note ,documented as a scribe. Any additional findings or plans will be noted.
--- NOTE | 2020-10-02 12:20 | P.CONS ---
History of Present Illness - Reason for Consult Consult date: 10/02/20 wound care - History of Present Illness 65-year-old gentleman known to the wound care center who has been following with Dr. Lopez until recently transferred to a different provider at a different wound care center. She has multiple pressure ulcerations to the bilateral lower extremities the right ischium. Duration 7 treated with Santyl in the past. His past medical history significant for dementia, diabetes mellitus, DVT, hyperlipidemia, hypertension, BPH, osteoarthritis to the coccyx wound I previous hyperbaric treatment in a wound VAC. Original cause of wound was Not Known. The wound is currently classified as a Grade 2 wound with etiology of Diabetic Wound/Ulcer of the Lower Extremity and is located on the Right,Posterior Lower Leg. The wound measures 3.9cm length x 1.4cm width x 0.1cm depth; 4.288cm^2 area and 0.429cm^3 volume. There is no tunneling or undermining noted. There is a medium amount of sanguinous drainage noted. The wound margin is flat and intact. There is large (67-100%) red, pink granulation within the wound bed. There is a small (1-33%) amount of necrotic tissue within the wound bed including Adherent Slough. The periwound skin appearance exhibited: Scarring, Dry/Scaly, Erythema. The periwound skin appearance did not exhibit: Callus, Crepitus, Induration, Rash, Maceration, Atrophie Sandra, Cyanosis, Ecchymosis, Hemosiderin Staining, Mottled, Pallor, Rubor. The surrounding wound skin color is noted with erythema which is circumferential. Periwound temperature was noted as No Abnormality. Original cause of wound was Pressure Injury. The wound is currently classified as a Grade 1 wound with etiology of Diabetic Wound/Ulcer of the Lower Extremity and is located on the Right,Posterior Calcaneus. The wound measures 1.9cm length x 1.3cm width x 0.1cm depth; 1.94cm^2 area and 0.194cm^3 volume. There is a none present amount of drainage noted. The wound margin is indistinct and nonvisible. There is no granulation within the wound bed. There is a large (67-100%) amount of necrotic tissue within the wound bed including Eschar. The periwound skin appearance exhibited: Dry/Scaly. The periwound skin appearance did not exhibit: Callus, Crepitus, Excoriation, Induration, Rash, Scarring, Maceration, Atrophie Sandra, Cyanosis, Ecchymosis, Hemosiderin Staining, Mottled, Pallor, Rubor, Erythema. Original cause of wound was Pressure Injury. The wound is currently classified as a Category/Stage III wound with etiology of Pressure Ulcer and is located on the Right Ischium. The wound measures 1.9cm length x 2.7cm width x 2.9cm depth; 4.029cm^2 area and 11.684cm^3 volume. There is Fat Layer (Subcutaneous Tissue) Exposed exposed. There is no tunneling or undermining noted. There is a medium amount of serosanguineous drainage noted. The wound margin is flat and intact. There is small (1-33%) pink granulation within the wound bed. There is a large (67-100%) amount of necrotic tissue within the wound bed including Eschar and Adherent Slough. The periwound skin appearance exhibited: Scarring. The periwound skin appearance did not exhibit: Callus, Crepitus, Excoriation, Induration, Rash, Dry/Scaly, Maceration, Atrophie Chamberlain, Cyanosis, Ecchymosis, Hemosiderin Staining, Mottled, Pallor, Rubor, Erythema. Original cause of wound was Not Known. The wound is currently classified as a Grade 2 wound with etiologies of Diabetic Wound/Ulcer of the Lower Extremity and Pressure Ulcer and is located on the Left,Posterior Lower Leg. The wound measures 1.1cm length x 0.8cm width x 0.2cm depth; 0.691cm^2 area and 0.138cm^3 volume. There is Fat Layer (Subcutaneous Tissue) Exposed exposed. There is no tunneling or undermining noted. There is a medium amount of serosanguineous drainage noted. The wound margin is indistinct and nonvisible. There is large (67-100%) red granulation within the wound bed. There is a small (1-33%) amount of necrotic tissue within the wound bed including Adherent Slough. The periwound skin appearance exhibited: Scarring, Dry/Scaly. The periwound skin appearance did not exhibit: Callus, Crepitus, Excoriation, Induration, Rash, Maceration, Atrophie Chamberlain, Cyanosis, Ecchymosis, Hemosiderin Staining, Mottled, Pallor, Rubor, Erythema. Periwound temperature was noted as No Abnormality. The periwound has tenderness on palpation. Review Of Systems: Constitutional: No fever, no chills, no night sweats. No weight change. No we akness, fatigue or lethargy. No daytime sleepiness. Integumentary:reports wounds, no lesions. No rash or pruritus. No unusual bruising. No change in hair or nails. Physical exam: General Appearance: Alert, cooperative, no distress, appears stated age. Skin: See HPI all other Skin color, texture, tugor normal, no rashes or lesions. Neurologic: Alert oriented x3 Assessment: 1. Stressed the right buttock stage III 2. Pressure ulcer right ankle stage III 3. Pressure ulcer of left ankle stage III. 4. Pressure ulcer stage II of right heel 5. Diabetes mellitus with foot ulcer 6. Immobility syndrome Plan: 1. Apply Santyl, saline moistened gauze, foam, rolled gauze to the lower extremity ulcerations. To the buttocks ulceration up by Santyl, saline moistened gauze, border foam. Change daily. Turn patient every 2 hours. Thank you or the consultation any questions please contact the wound care center DNP note has been reviewed and discussed with Dr. Berry and the impression and plan of care has been directed as dictated. Past Medical History Past Medical History: Dementia, Diabetes Mellitus, Deep Vein Thrombosis (DVT), Hyperlipidemia, Hypertension, Memory Impairment, Prostate Disorder Additional Past Medical History / Comment(s): Spouse states pt has pulled out IVs and other equipment and has thrown himself out of bed in the past-recommends side rails be up at all times, DVT B/L LE, insomnia, osteomeylitis- coccyx wound has had hyerbaric tx and wound vac in the past- goes to [facility] every , colo stomy d/t coccyx wound, uti's, guillain barre syndrome, neurogenic bladder has suprapubic cath-last changed 08/24/20, paraplegia SINCE LAMINECTOMY FEB 15, 2017- PARALIZED WAIST DOWN, abd hernia, peg tube previously, limited ROM with neck, NIDDM now diet controlled/possible bilateral foot neuropathy. stated "that the dementia pt has also has parkinson like symptoms". 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 Supra PUBIC CATH (changed last 08/24/20), picc lines-since removed, previous peg tube Past Anesthesia/Blood Transfusion Reactions: Previous Problems w/ Anesthesia Additional Past Anesthesia/Blood Transfusion Reaction / Comm: when pt had 2 sx within a short time from each other ,he had diffiuclty waking up. Past blood transfusion-no reaction Past Psychological History: Anxiety, Depression Smoking Status: Former smoker Past Alcohol Use History: Rare Past Drug Use History: None Reported - Past Family History Brother(s) Family Medical History: Cancer Additional Family Medical History / Comment(s): Lung cancer Mother Additional Family Medical History / Comment(s): emphysema Father Additional Family Medical History / Comment(s): emphysema Medications and Allergies Home Medications Medication Instructions Recorded Confirmed Type Apixaban [Eliquis] 5 mg PO BID@0800,1700 07/27/17 09/28/20 History Carbidopa-Levodopa 10-100 mg 1 tab PO TID@0600,1400,2200 04/06/18 09/28/20 History [Sinemet 10-100 mg] Losartan [Cozaar] 25 mg PO DAILY@0800 11/05/19 09/28/20 History methocarbamoL [Robaxin] 500 mg PO TID PRN 11/05/19 09/28/20 History Hydrochlorothiazide 12.5 mg PO DAILY@0800 08/24/20 09/28/20 History [hydroCHLOROthiazide] Insulin Glargine/Lixisenatide 55 units SQ HS@2130 08/24/20 09/28/20 History [Soliqua 100 Unit-33 Mcg/ml Pen] Melatonin 20 mg PO HS 08/24/20 09/28/20 History Gabapentin [Neurontin] 800 mg PO TID@0600,1400,2200 09/28/20 09/28/20 History INSULIN ASPART (NovoLOG) [NovoLOG See Protocol SQ 09/28/20 09/28/20 History (formulary)] ACHS@07,11,1630,2130 Shiraz Packet 1 packet PO BID@0800,1700 09/28/20 09/28/20 History L.acidoph,Paracasei, B.lactis 1 cap PO DAILY@0800 09/28/20 09/28/20 History [Probiotic] Liquacel 30 ml PO BID@1200,2100 09/28/20 09/28/20 History Magnesium Hydroxide [Milk of 7,200 mg PO Q48H PRN 09/28/20 09/28/20 History Magnesia Concentrate] Na Phos,M-B/Na Phos,Di-Ba [Fleet 133 ml RECTAL DAILY PRN 09/28/20 09/28/20 Hist ory Adult] bisacodyL [Bisacodyl] 10 mg RECTAL DAILY PRN 09/28/20 09/28/20 History Allergies Allergy/AdvReac Type Severity Reaction Status Date / Time levofloxacin [From Levaquin] Allergy Unknown Verified 09/30/20 16:39 Physical Exam Vitals: Vital Signs Temp Pulse Resp BP Pulse Ox 10/02/20 04:45 97.3 F L 65 20 150/77 98 10/01/20 19:45 98.4 F 68 20 117/81 97 Intake and Output 10/01/20 10/02/20 10/02/20 22:59 06:59 14:59 Intake Total 1200 1360 Output Total 900 Balance 1200 460 Intake: Intake, IV Titration 1200 1000 Amount Ampicillin-Sulbactam 3 gm 300 100 In Sodium Chloride 0.9% 100 ml @ 200 mls/hr IVPB Q6HR [facility] Rx#:[id number] Sodium Chloride 0.9% 1, 900 900 000 ml @ 75 mls/hr IV . [id number] [facility] Rx#:[id number] Oral 360 Output: Urine 900 Suprapubic 900 Other: Voiding Method Indwelling Catheter Results CBC & Chem 7: 10/02/20 05:43 10/01/20 04:35 Labs: Abnormal Lab Results - Last 24 Hours (Table) 10/01/20 10/01/20 10/02/20 Range/Units 04:35 17:22 00:17 RBC (4.30-5.90) m/uL Hgb (13.0-17.5) gm/dL Hct (39.0-53.0) % BUN 28.0 H (9.0-27.0) mg/dL BUN/Creatinine Ratio 25.45 H (12.00-20.00) Ratio Glucose 153 H (70-110) mg/dL POC Glucose (mg/dL) 182 H 151 H (75-99) mg/dL Calcium 7.8 L (8.7-10.3) mg/dL 10/02/20 10/02/20 Range/Units 05:43 06:06 RBC 3.84 L (4.30-5.90) m/uL Hgb 10.9 L (13.0-17.5) gm/dL Hct 34.3 L (39.0-53.0) % BUN (9.0-27.0) mg/dL BUN/Creatinine Ratio (12.00-20.00) Ratio Glucose (70-110) mg/dL POC Glucose (mg/dL) 167 H (75-99) mg/dL Calcium (8.7-10.3) mg/dL Microbiology - Last 24 Hours (Table) 09/28/20 23:35 Blood Culture - Preliminary Blood No Growth after 72 hours 09/28/20 23:50 Blood Culture - Preliminary Blood No Growth after 72 hours 09/29/20 01:10 Urine Culture - Final Urine,Voided Proteus mirabilis Assessment and Plan (1) Pressure ulcer of right buttock, stage 3 Current Visit: Yes Status: Acute Code(s): L89.313 - PRESSURE ULCER OF RIGHT BUTTOCK, STAGE 3 SNOMED Code(s): 80446290509529516 (2) Pressure ulcer of right ankle, stage 3 Current Visit: Yes Status: Acute Code(s): L89.513 - PRESSURE ULCER OF RIGHT ANKLE, STAGE 3 SNOMED Code(s): 822190183 (3) Pressure ulcer of right heel, stage 2 Current Visit: Yes Status: Acute Code(s): L89.612 - PRESSURE ULCER OF RIGHT HEEL, STAGE 2 SNOMED Code(s): 262963870 (4) Pressure ulcer of left ankle, stage 2 Current Visit: Yes Status: Acute Code(s): L89.522 - PRESSURE ULCER OF LEFT ANKLE, STAGE 2 SNOMED Code(s): 183272077 (5) Diabetic foot ulcer Current Visit: Yes Status: Acute Code(s): E11.621 - TYPE 2 DIABETES MELLITUS WITH FOOT ULCER; L97.509 - NON-PRESSURE CHRONIC ULCER OTH PRT UNSP FOOT W UNSP SEVERITY SNOMED Code(s): 287332173
[2020-10-02 12:27] LABS: Glucose,Whole Blood 174 mg/dL (75-99)
[2020-10-02] MEDS: COLLAGENASE 250 UNIT/GM OINTMENT 30 GM TUBE TOPICAL SCH (13:20)
[2020-10-02 17:21] LABS: Glucose,Whole Blood 161 mg/dL (75-99)
--- NOTE | 2020-10-02 18:54 | PN ---
PROGRESS NOTE DATE OF SERVICE: 10/02/2020 REASON FOR FOLLOWUP: Catheter associated urinary tract infection. INTERVAL HISTORY: Patient is afebrile. The patient is breathing comfortably, feeling better. Denies any chest pain, shortness of breath or cough. No abdominal pain or diarrhea. PHYSICAL EXAMINATION: Blood pressure 126/85, pulse 75, temperature is 97.6. He is 96% on room air. General description is an elderly male lying in bed in no distress. Respiratory system: Unlabored breathing, clear to auscultation anteriorly. Heart S1, S2. Regular rate and rhythm. Abdomen soft, no tenderness. LABS: Hemoglobin is 10.1, white count 4.3. Urine showing Proteus mirabilis. DIAGNOSTIC IMPRESSION AND PLAN: Patient with catheter associated urinary tract infection. Urine showing Proteus mirabilis, sensitive pathogen. Patient is covered with Unasyn, transition to oral antibiotic on discharge. Continue supportive care. MMODL / IJN: [id number] /
[2020-10-02 19:59] LABS: African American GFR (CKD) 89.9 (60.0-200.0); Anion Gap 14.2 mmol/L (4.00-12.00); Calcium 8.1 mg/dL (8.7-10.3); Carbon Dioxide 19.8 mmol/L (21.6-31.8); Non-African American GFR(CKD) 77.5 (60.0-200.0); Potassium 3.7 mmol/L (3.5-5.5)
[2020-10-02 20:12] LABS: Glucose,Whole Blood 155 mg/dL (75-99)
[2020-10-02] MEDS: MELATONIN 3 MG TABLET PO SCH (20:29)
[2020-10-03] MEDS: CARBIDOPA-LEVODOPA 10-100 MG 1 EACH TAB PO SCH ×3 (05:15→22:01)
[2020-10-03] MEDS: GABAPENTIN 400 MG CAP PO SCH ×3 (05:15→22:01)
[2020-10-03] MEDS: AMPICILLIN-SULBACTAM 3 GM in SODIUM CHLORIDE 0.9% 100 ML IVPB SCH ×3 (05:16→17:34)
[2020-10-03] MEDS: SODIUM CHLORIDE 0.9% 1,000 ML IV SCH (05:16)
[2020-10-03 07:29] LABS: Glucose,Whole Blood 147 mg/dL (75-99)
[2020-10-03] MEDS: INSULIN ASPART (NovoLOG) 100 UNIT/ML VIAL SQ SCH ×4 (08:17→21:59)
[2020-10-03] MEDS: PANTOPRAZOLE 40 MG/10 ML VIAL IVP SCH (08:18)
[2020-10-03] MEDS: HEPARIN SODIUM,PORCINE/PF 5,000 UNIT/0.5 ML SYRINGE SQ SCH (08:18)
[2020-10-03] MEDS: methocarbamoL 500 MG TAB PO SCH ×3 (08:18→22:01)
[2020-10-03] MEDS: OXYBUTYNIN 15 MG TAB.ER.24 PO SCH (08:18)
--- NOTE | 2020-10-03 12:15 | P.DS ---
Providers Date of admission: 10/02/20 10:56 Expected date of discharge: 10/03/20 Attending physician: Gilmer Lopez Consults: 09/29/20 15:07 Consult Physician Routine Consulting Provider: Roge Landers Consult Reason/Comments: change sp cath Do you want consulting provider notified?: Yes 09/30/20 16:28 Consult Physician Routine Consulting Provider: Mary Anne Hansen Consult Reason/Comments: recurrent UTI, SP cath. Do you want consulting provider notified?: Yes Primary care physician: Gilmer Lopez Hospital Course: Final Diagnoses; Sepsis secondary to recurrent Acute UTI, Proteus Mirabilis in a patient with an SP catheter,SP catheter changed out as per urology 09/30/20. Acute metabolic encephalopathy multifactorial secondary to acute UTI, related to chronic suprapubic catheter, present on admission. Repeat Culture no growth. Delirium, acute metabolic encephalopathy also related to environmental change in sleep deprivation. Recommend bed by window to help with acclimation. Delirium precautions . Dehydration secondary to infection Acute renal failure secondary to the above Recently admitted with Acute toxic encephalopathy secondary to suspected side effect of drug, Levaquin. Delirium multifactorial secondary to dementia, Parkinson's disease General medical debility worsened by sepsis, infection Chronic Pressure ulcers of the right ischium,buttock, left calf stage II, right kaufman & heel, stage II Chronic Urinary retention with SP catheter History of Bladder wall thickness per CT, urology recommending outpatient cystoscopy Diabetes mellitus, hyperglycemia, hemoglobin A1c 7.3, blood sugars currently controlled. Lantus dose resumed at a lower dose -close monitoring of Accu- Cheks. Hypertension Hyperlipidemia GERD History of seizure disorder on [facility] History of DVT on [facility] Hospital course:This is a 65-year-old paraplegic with past medical history of dementia, diabetes mellitus, GERD, hyperlipidemia, hypertension, seizure disorder, DVT , osteomyelitis of the coccyx, status post colostomy, neurogenic bladder status post suprapubic catheter, paraplegia since laminectomy in February 2017 and paralyzed from waist down, previous infection with MRSA/VRE and Parkinson disease, presented to the ER with change in mental status and multiple other medical issues. Patient had recently been discharged from inpatient admitted to subacute rehab . informed ER the patient had decreased oral intake for a few days and since yesterday morning he had developed increased confusion. T-max 100, normal WBC, hemoglobin 10.7, platelets 231, sodium 138, potassium 3.6, bicarb 28.3, BUN 45 , creatinine 1.3. Blood sugars currently 190s. UA reported moderate urine bacteria, greater than 182 WBCs, large leukocytes, positive nitrates moderate blood, 1+ glucose, 4+ protein. Chest x-ray reporting no cardiopulmonary disease, no change. Brain CT reported cerebral atrophy, no acute intracranial abnormality, no change. EKG reported normal sinus rhythm, nonspecific T-wave abnormality. Troponin negative 1. Denies chest pain, palpitations or shortness of breath. 09/30/2020 suprapubic catheter changed this morning per urology, tolerated procedure well. BUN down to 34, creatinine trending up, 1.3. Blood sugars better controlled. Maintained on IV antibiotics, IV fluids. Afebrile, normal WBC. Cultures pending. Reports didn't sleep well. Denies chest pain, palpitations or shortness of breath. 10/01/2020 maintained on Unasyn IV antibiotics.initial urine culture reporting gram-negative bacilli .Afebrile, normal WBC. Repeat urine culture post change of SP catheter pending. Creatinine pending. Leaking around SP catheter secondary to bladder spasms, Ditropan added to med regimen yesterday. Staff reports patient was disoriented to place last night, thought he was in [place]. 10/02/2020 continues on IV antibiotics of Unasyn, afebrile. Labs pending. Initial urine culture reporting Proteus Mirabellis. Repeat culture in progress. Evaluated by ID with recommendations noted and appreciated. Maintained on Ditropan, leaking continues around SP catheter. Repeat urine culture reported no growth after 18 hours. Afebrile, labs pending. Blood sugars controlled, resuming Lantus at lower dose. Close monitoring of Accu-Cheks. Protein supplements to be administered between meals .Dietitian consulted regarding optimizing protein intake. Significant increased weakness related to medical debility related to sepsis/infection/UTI in addition to underlying chronic medical issues. Recommend also that delirium precautions be maintained including having a bed positioned near a window to facilitate acclimation. Patient will be discharged today to [facility] subacute rehab., In a stable condition with guarded prognosis, pending labs, final DC recommendations/antibiotics and clearance from ID. The impression and plan of care has been dictated as directed. : I performed a history and examination of this patient, discussed the same with the dictator. I agree with the dictator's note ,documented as a scribe. Any additional findings or plans will be noted. Patient Condition at Discharge: Stable Plan - Discharge Summary Discharge Rx Participant: No New Discharge Prescriptions: New Oxybutynin ER [Ditropan Xl] 15 mg PO DAILY tab.er.24 Collagenase [Santyl] 1 applic TOPICAL DAILY applic Acetaminophen Tab [Tylenol] 650 mg PO Q6HR PRN tab PRN Reason: Mild Pain Or Fever > 100.5 Continue Apixaban [Eliquis] 5 mg PO BID@0800,1700 Carbidopa-Levodopa 10-100 mg [Sinemet 10-100 mg] 1 tab PO TID@0600,1400,2200 methocarbamoL [Robaxin] 500 mg PO TID PRN PRN Reason: Pain Losartan [Cozaar] 25 mg PO DAILY@0800 Melatonin 20 mg PO HS Hydrochlorothiazide [hydroCHLOROthiazide] 12.5 mg PO DAILY@0800 Na Phos,M-B/Na Phos,Di-Ba [Fleet Adult] 133 ml RECTAL DAILY PRN PRN Reason: Constipation Magnesium Hydroxide [Milk of Magnesia Concentrate] 7,200 mg PO Q48H PRN PRN Reason: Constipation L.acidoph,Paracasei, B.lactis [Probiotic] 1 cap PO DAILY@0800 INSULIN ASPART (NovoLOG) [NovoLOG (formulary)] See Protocol SQ ACHS@07,11,1630,2130 bisacodyL [Bisacodyl] 10 mg RECTAL DAILY PRN PRN Reason: Constipation Liquacel 30 ml PO BID@1200,2100 #0 Changed Gabapentin [Neurontin] 800 mg PO TID@0600,1400,2200 #18 cap Insulin Glargine/Lixisenatide [Soliqua 100 Unit-33 Mcg/ml Pen] 20 units SQ HS@2130 #0 Discontinued Shiraz Packet 1 packet PO BID@0800,1700 Discharge Medication List Apixaban [Eliquis] 5 mg PO BID@0800,1700 07/27/17 [History] Carbidopa-Levodopa 10-100 mg [Sinemet 10-100 mg] 1 tab PO TID@0600,1400,2200 04/06/18 [History] Losartan [Cozaar] 25 mg PO DAILY@0800 11/05/19 [History] methocarbamoL [Robaxin] 500 mg PO TID PRN 11/05/19 [History] Hydrochlorothiazide [hydroCHLOROthiazide] 12.5 mg PO DAILY@0800 08/24/20 [History] Melatonin 20 mg PO HS 08/24/20 [History] INSULIN ASPART (NovoLOG) [NovoLOG (formulary)] See Protocol SQ ACHS@07,11,1630, 2130 09/28/20 [History] L.acidoph,Paracasei, B.lactis [Probiotic] 1 cap PO DAILY@0800 09/28/20 [History] Magnesium Hydroxide [Milk of Magnesia Concentrate] 7,200 mg PO Q48H PRN 09/28/20 [History] Na Phos,M-B/Na Phos,Di-Ba [Fleet Adult] 133 ml RECTAL DAILY PRN 09/28/20 [History] bisacodyL [Bisacodyl] 10 mg RECTAL DAILY PRN 09/28/20 [History] Acetaminophen Tab [Tylenol] 650 mg PO Q6HR PRN tab 10/03/20 [Rx] Collagenase [Santyl] 1 applic TOPICAL DAILY applic 10/03/20 [Rx] Gabapentin [Neurontin] 800 mg PO TID@0600,1400,2200 #18 cap 10/03/20 [Rx] Insulin Glargine/Lixisenatide [Soliqua 100 Unit-33 Mcg/ml Pen] 20 units SQ HS@2130 #0 10/03/20 [Rx] Liquacel 30 ml PO BID@1200,2100 #0 10/03/20 [Rx] Oxybutynin ER [Ditropan Xl] 15 mg PO DAILY tab.er.24 10/03/20 [Rx] Follow up Appointment(s)/Referral(s): Gilmer Lopez MD [Primary Care Provider] - 3 Days Activity/Diet/Wound Care/Special Instructions: [facility]hab pending labs CBC, BMP Antibiotics as per ID Wound care as ordered per wound care team Specialty mattress/bed secondary to multiple wounds
[2020-10-03 12:16] LABS: Glucose,Whole Blood 165 mg/dL (75-99)
[2020-10-03 12:26] LABS: HGB 10.2 gm/dL (13.0-17.5); Hypochromasia Slight; MCH 29.3 pg (25.0-35.0); MCV 88.7 fL (80.0-100.0); Mean Platelet Volume 8.2; Platelet Count 213 k/uL (150-450); RBC 3.49 m/uL (4.30-5.90); RDW 13.9 % (11.5-15.5)
[2020-10-03] MEDS: APIXABAN 5 MG TAB PO SCH ×2 (12:39→17:34)
[2020-10-03] MEDS: INSULIN DETEMIR (LEVEMIR) 100 UNIT/ML SYR SQ SCH (12:39)
[2020-10-03 13:24] LABS: African American GFR (CKD) 102.1 (60.0-200.0); Anion Gap 10.3 mmol/L (4.00-12.00); BUN/Creat Ratio 13.33 Ratio (12.00-20.00); Calcium 7.8 mg/dL (8.7-10.3); Carbon Dioxide 21.7 mmol/L (21.6-31.8); Non-African American GFR(CKD) 88.1 (60.0-200.0); Potassium 3.5 mmol/L (3.5-5.5)
[2020-10-03] MEDS ORDERED: methocarbamoL 500 MG TAB PO PRN (14:05)
[2020-10-03] MEDS ORDERED: MAGNESIUM HYDROXIDE 2,400 MG/10 ML CUP PO PRN (14:05)
[2020-10-03] MEDS ORDERED: NA PHOS,M-B/NA PHOS,DI-BA 133 ML ENEMA RECTAL PRN (14:05)
[2020-10-03] MEDS: LOSARTAN 25 MG TAB PO SCH (15:38)
[2020-10-03] MEDS: COLLAGENASE 250 UNIT/GM OINTMENT 30 GM TUBE TOPICAL SCH (15:38)
--- NOTE | 2020-10-03 16:37 | PN ---
PROGRESS NOTE DATE OF SERVICE: 10/03/2020 REASON FOR FOLLOWUP: Catheter associated urinary tract infection. INTERVAL HISTORY: The patient is afebrile. He is breathing comfortably. Denies having any chest pain, cough, abdominal pain. No diarrhea. However, the apparently did mention that he has more hallucinations today. PHYSICAL EXAMINATION: Blood pressure 177/83, pulse of 79, temperature 98.1. He is 96% on room air. General description is an elderly male lying in bed in no distress. Respiratory system: Unlabored breathing, clear to auscultation anteriorly. Heart S1, S2. Regular rate and rhythm. Abdomen soft, no tenderness. LABORATORY STUDIES: Hemoglobin 10, white count 4.8. BUN of 12, creatinine 0.9. Urine showing Proteus mirabilis. DIAGNOSTIC IMPRESSION AND PLAN: Patient with proteus mirabilis, catheter associated urinary tract infection. has been negative before the catheter was changed. We will give a short course of oral Ceftin on discharge and close outpatient followup. MMODL / IJN: [id number] /
[2020-10-03] MEDS ORDERED: APIXABAN 5 MG TAB PO SCH (17:00)
[2020-10-03 17:06] LABS: Glucose,Whole Blood 200 mg/dL (75-99)
[2020-10-03 20:05] LABS: Glucose,Whole Blood 173 mg/dL (75-99)
[2020-10-03] MEDS ORDERED: INSULIN DETEMIR (LEVEMIR) 100 UNIT/ML SYR SQ SCH (21:00)
[2020-10-03] MEDS: MELATONIN 5 MG TABLET PO SCH (22:01)
[2020-10-04] MEDS: AMPICILLIN-SULBACTAM 3 GM in SODIUM CHLORIDE 0.9% 100 ML IVPB SCH ×4 (00:11→18:05)
[2020-10-04] MEDS: GABAPENTIN 400 MG CAP PO SCH ×3 (06:14→22:33)
[2020-10-04] MEDS: CARBIDOPA-LEVODOPA 10-100 MG 1 EACH TAB PO SCH ×3 (06:14→22:33)
[2020-10-04 07:20] LABS: Glucose,Whole Blood 132 mg/dL (75-99)
[2020-10-04] MEDS: INSULIN ASPART (NovoLOG) 100 UNIT/ML VIAL SQ SCH ×4 (08:20→21:57)
[2020-10-04] MEDS: PANTOPRAZOLE 40 MG TABLET PO SCH (08:21)
[2020-10-04] MEDS: INSULIN DETEMIR (LEVEMIR) 100 UNIT/ML SYR SQ SCH (08:21)
[2020-10-04] MEDS: LOSARTAN 25 MG TAB PO SCH (08:21)
[2020-10-04] MEDS: APIXABAN 5 MG TAB PO SCH ×2 (08:21→18:07)
[2020-10-04] MEDS: LACTOBACILLUS ACIDOPH & BULGAR 1 EACH PACKET PO SCH (08:21)
[2020-10-04] MEDS: methocarbamoL 500 MG TAB PO SCH ×3 (08:22→22:33)
[2020-10-04] MEDS: OXYBUTYNIN 15 MG TAB.ER.24 PO SCH (08:23)
--- NOTE | 2020-10-04 11:01 | P.DS ---
Providers Date of admission: 10/02/20 10:56 Expected date of discharge: 10/04/20 Attending physician: Gilmer Lopez Consults: 09/29/20 15:07 Consult Physician Routine Consulting Provider: Roge Landers Consult Reason/Comments: change sp cath Do you want consulting provider notified?: Yes 09/30/20 16:28 Consult Physician Routine Consulting Provider: Mary Anne Hansen Consult Reason/Comments: recurrent UTI, SP cath. Do you want consulting provider notified?: Yes Primary care physician: Gilmer Lopez - Discharge Diagnosis(es) (1) Altered mental status Current Visit: Yes Status: Acute (2) Diabetic foot ulcer Current Visit: Yes Status: Acute (3) Pressure ulcer of left ankle, stage 2 Current Visit: Yes Status: Acute (4) Pressure ulcer of right ankle, stage 3 Current Visit: Yes Status: Acute (5) UTI (urinary tract infection) Current Visit: Yes Status: Acute (6) At risk for readmission to hospital Current Visit: No Status: Acute (7) Dehydration Current Visit: No Status: Acute (8) Delirium due to general medical condition Current Visit: No Status: Acute Assessment: See discharge note dated 10/03/2020 Patient Condition at Discharge: Good Plan - Discharge Summary Discharge Rx Participant: No New Discharge Prescriptions: New Oxybutynin ER [Ditropan Xl] 15 mg PO DAILY tab.er.24 Collagenase [Santyl] 1 applic TOPICAL DAILY applic Pantoprazole Sodium [Protonix] 40 mg PO DAILY #1 tablet. Acetaminophen Tab [Tylenol] 650 mg PO Q6HR PRN tab PRN Reason: Mild Pain Or Fever > 100.5 Cefuroxime Axetil [Ceftin] 500 mg PO BID 7 Days #14 tab Continue Apixaban [Eliquis] 5 mg PO BID@0800,1700 Carbidopa-Levodopa 10-100 mg [Sinemet 10-100 mg] 1 tab PO TID@0600,1400,2200 methocarbamoL [Robaxin] 500 mg PO TID PRN PRN Reason: Pain Losartan [Cozaar] 25 mg PO DAILY@0800 Melatonin 20 mg PO HS Hydrochlorothiazide [hydroCHLOROthiazide] 12.5 mg PO DAILY@0800 Na Phos,M-B/Na Phos,Di-Ba [Fleet Adult] 133 ml RECTAL DAILY PRN PRN Reason: Constipation Magnesium Hydroxide [Milk of Magnesia Concentrate] 7,200 mg PO Q48H PRN PRN Reason: Constipation L.acidoph,Paracasei, B.lactis [Probiotic] 1 cap PO DAILY@0800 INSULIN ASPART (NovoLOG) [NovoLOG (formulary)] See Protocol SQ ACHS@07,11,1630,2130 bisacodyL [Bisacodyl] 10 mg RECTAL DAILY PRN PRN Reason: Constipation Liquacel 30 ml PO BID@1200,2100 #0 Changed Gabapentin [Neurontin] 800 mg PO TID@0600,1400,2200 #18 cap Insulin Glargine/Lixisenatide [Soliqua 100 Unit-33 Mcg/ml Pen] 20 units SQ HS@0 #0 Discontinued Shiraz Packet 1 packet PO BID@0800,1700 Discharge Medication List Apixaban [Eliquis] 5 mg PO BID@0800,1700 07/27/17 [History] Carbidopa-Levodopa 10-100 mg [Sinemet 10-100 mg] 1 tab PO TID@0600,1400,2200 04/06/18 [History] Losartan [Cozaar] 25 mg PO DAILY@0800 11/05/19 [History] methocarbamoL [Robaxin] 500 mg PO TID PRN 11/05/19 [History] Hydrochlorothiazide [hydroCHLOROthiazide] 12.5 mg PO DAILY@0800 08/24/20 [History] Melatonin 20 mg PO HS 08/24/20 [History] INSULIN ASPART (NovoLOG) [NovoLOG (formulary)] See Protocol SQ ACHS@07,11,1630,0 09/28/20 [History] L.acidoph,Paracasei, B.lactis [Probiotic] 1 cap PO DAILY@0800 09/28/20 [History] Magnesium Hydroxide [Milk of Magnesia Concentrate] 7,200 mg PO Q48H PRN 09/28/20 [History] Na Phos,M-B/Na Phos,Di-Ba [Fleet Adult] 133 ml RECTAL DAILY PRN 09/28/20 [History] bisacodyL [Bisacodyl] 10 mg RECTAL DAILY PRN 09/28/20 [History] Acetaminophen Tab [Tylenol] 650 mg PO Q6HR PRN tab 10/03/20 [Rx] Cefuroxime Axetil [Ceftin] 500 mg PO BID 7 Days #14 tab 10/03/20 [Rx] Collagenase [Santyl] 1 applic TOPICAL DAILY applic 10/03/20 [Rx] Gabapentin [Neurontin] 800 mg PO TID@0600,1400,2200 #18 cap 10/03/20 [Rx] Insulin Glargine/Lixisenatide [Soliqua 100 Unit-33 Mcg/ml Pen] 20 units SQ HS@2130 #0 10/03/20 [Rx] Liquacel 30 ml PO BID@1200,2100 #0 10/03/20 [Rx] Oxybutynin ER [Ditropan Xl] 15 mg PO DAILY tab.er.24 10/03/20 [Rx] Pantoprazole Sodium [Protonix] 40 mg PO DAILY #1 tablet. 10/03/20 [Rx] Follow up Appointment(s)/Referral(s): Gilmer Lopez MD [Primary Care Provider] - 3 Days Activity/Diet/Wound Care/Special Instructions: [facility] pending labs CBC, BMP in 3 days Antibiotics as per ID Wound care as ordered per wound care team Specialty mattress/bed secondary to multiple wounds Diet:Chopped, Consistent carb, Heart healthy, Shiraz BID
[2020-10-04 11:42] LABS: Glucose,Whole Blood 174 mg/dL (75-99)
[2020-10-04] MEDS: COLLAGENASE 250 UNIT/GM OINTMENT 30 GM TUBE TOPICAL SCH (12:30)
--- NOTE | 2020-10-04 16:35 | PN ---
PROGRESS NOTE DATE OF SERVICE: 10/04/2020. REASON FOR FOLLOWUP: ( ) infection. INTERVAL HISTORY: The patient is afebrile. The patient has been breathing comfortably. He is hemodynamically stable. No vomiting or diarrhea has been reported by nursing staff. PHYSICAL EXAMINATION: Blood pressure 150/80 with a pulse of 53, temperature ( ). He is 100% on room air. General description is an elderly male lying in bed in no distress. Respiratory system: Unlabored breathing, clear to auscultation anteriorly. Heart S1, S2. Regular rate and rhythm. Abdomen soft, no tenderness. LABS: No new labs have been obtained today. DIAGNOSTIC IMPRESSION AND PLAN: Patient with catheter associated urinary tract infection ( ) Proteus. Overall improvement on oral Ceftin. at the bedside, questions were answered. MMODL / IJN: [id number] /
[2020-10-04 17:31] LABS: Glucose,Whole Blood 158 mg/dL (75-99)
[2020-10-04 20:59] LABS: Glucose,Whole Blood 132 mg/dL (75-99)
[2020-10-04] MEDS: MELATONIN 5 MG TABLET PO SCH (22:33)
[2020-10-05] MEDS: AMPICILLIN-SULBACTAM 3 GM in SODIUM CHLORIDE 0.9% 100 ML IVPB SCH ×5 (00:18→23:37)
[2020-10-05] MEDS: GABAPENTIN 400 MG CAP PO SCH ×3 (05:58→21:13)
[2020-10-05] MEDS: CARBIDOPA-LEVODOPA 10-100 MG 1 EACH TAB PO SCH ×3 (05:59→21:14)
[2020-10-05 07:34] LABS: Glucose,Whole Blood 115 mg/dL (75-99)
[2020-10-05] MEDS: INSULIN ASPART (NovoLOG) 100 UNIT/ML VIAL SQ SCH ×4 (07:41→21:14)
[2020-10-05] MEDS: LOSARTAN 25 MG TAB PO SCH (10:16)
[2020-10-05] MEDS: LACTOBACILLUS ACIDOPH & BULGAR 1 EACH PACKET PO SCH (10:16)
[2020-10-05] MEDS: PANTOPRAZOLE 40 MG TABLET PO SCH (10:16)
[2020-10-05] MEDS: INSULIN DETEMIR (LEVEMIR) 100 UNIT/ML SYR SQ SCH (10:16)
[2020-10-05] MEDS: APIXABAN 5 MG TAB PO SCH ×2 (10:16→17:12)
[2020-10-05] MEDS: methocarbamoL 500 MG TAB PO SCH ×3 (10:17→21:14)
[2020-10-05] MEDS: OXYBUTYNIN 15 MG TAB.ER.24 PO SCH (10:17)
[2020-10-05] MEDS: COLLAGENASE 250 UNIT/GM OINTMENT 30 GM TUBE TOPICAL SCH (10:26)
[2020-10-05 11:49] LABS: Glucose,Whole Blood 165 mg/dL (75-99)
--- NOTE | 2020-10-05 13:08 | P.PN ---
Progress Note - Text Progress Note Date: 10/05/20 Patient was discharged yesterday however [facility], and his certification was not approved until October 05 or . He subsequently because he is a quadriplegic we kept him on the IV antibiotics for next day and will arrange transfer tomorrow General: [Patient awake, alert and oriented times 3. Patient in no acute distress.] HEENT: [PERRL. EOMI. No pharyngeal erythema or exudate.] Neck: [No adenopathy.] Cardiac: [Heart regular in rate and rhythm. No S3. No S4. No clicks, rubs. No murmur.] Lungs: [Clear to auscultation bilaterally.] Abdomen: [No mass. No organomegaly. Bowel sounds presnt and normoactive in all 4 quadrants.] Extremes: [No edema no cyanosis no claudication normal pulses] PICC line in the left biceps, patient is a known paraplegic with decubitus ulcer Normal male genitalia : Suprapubic catheter changed and working urine clear Musculoskeletal: [No joint erythema, edema or tenderness.] Skin: [No rash.] Neurologic: [No lateralizing deficits. CN II - XII grossly intact.] Lymphatic: [No adenopathy.]
[2020-10-05 17:45] LABS: Glucose,Whole Blood 167 mg/dL (75-99)
--- NOTE | 2020-10-05 19:44 | PN ---
PROGRESS NOTE DATE OF SERVICE: 10/05/2020 REASON FOR FOLLOWUP: Proteus mirabilis catheter associated UTI. INTERVAL HISTORY: Patient is currently afebrile. The patient is breathing comfortably. Denies having any chest pain or cough. No abdominal pain. No diarrhea. PHYSICAL EXAMINATION: Blood pressure 153/86, pulse of 69. Temperature is 97.7. He is 97% on room air. General description is an elderly male lying in bed in no distress. Respiratory system: Unlabored breathing, clear to auscultation anteriorly. Heart S1, S2. Regular rate and rhythm. Abdomen soft, no tenderness. LABS: No new labs have been obtained today. DIAGNOSTIC IMPRESSION AND PLAN: Patient with Proteus mirabilis catheter associated urinary tract infection. Patient is currently covered with Unasyn to transition to a short course of oral Ceftin on discharge and close outpatient follow up. MMODL / IJN: [id number] /
[2020-10-05 20:26] LABS: Glucose,Whole Blood 146 mg/dL (75-99)
[2020-10-05] MEDS: MELATONIN 5 MG TABLET PO SCH (21:13)
[2020-10-05 22:20] VITALS: RESP 20
[2020-10-06 05:23] VITALS: BP 153/70; PULSE 59; TEMP 98.7
[2020-10-06] MEDS: CARBIDOPA-LEVODOPA 10-100 MG 1 EACH TAB PO SCH (05:53)
[2020-10-06] MEDS: AMPICILLIN-SULBACTAM 3 GM in SODIUM CHLORIDE 0.9% 100 ML IVPB SCH ×2 (05:53→12:13)
[2020-10-06] MEDS: GABAPENTIN 400 MG CAP PO SCH (05:54)
[2020-10-06 07:59] LABS: Glucose,Whole Blood 145 mg/dL (75-99)
[2020-10-06] MEDS: INSULIN ASPART (NovoLOG) 100 UNIT/ML VIAL SQ SCH ×2 (08:33→12:34)
[2020-10-06] MEDS: INSULIN DETEMIR (LEVEMIR) 100 UNIT/ML SYR SQ SCH (08:33)
[2020-10-06] MEDS: LOSARTAN 25 MG TAB PO SCH (08:34)
[2020-10-06] MEDS: PANTOPRAZOLE 40 MG TABLET PO SCH (08:34)
[2020-10-06] MEDS: LACTOBACILLUS ACIDOPH & BULGAR 1 EACH PACKET PO SCH (08:34)
[2020-10-06] MEDS: APIXABAN 5 MG TAB PO SCH (08:34)
[2020-10-06] MEDS: methocarbamoL 500 MG TAB PO SCH (08:34)
[2020-10-06] MEDS: OXYBUTYNIN 15 MG TAB.ER.24 PO SCH (08:36)
[2020-10-06] MEDS: COLLAGENASE 250 UNIT/GM OINTMENT 30 GM TUBE TOPICAL SCH (08:37)
[2020-10-06 12:29] LABS: Glucose,Whole Blood 202 mg/dL (75-99)
== END 2020-10-06 12:59 | DRG 698 ==
LOC: EC 23:19 → 5NMEDONC 09-29 04:18 → OBSVTOIN 10-02 10:56
PROVIDERS: ADMIT Family Medicine; ATTEND Family Medicine
PROC: 0T2BX0Z Change Drainage Device in Bladder, External Approach (ICD-10-PCS; principal; 2020-09-30)
DX: T83.518A Infection and inflammatory reaction due to other urinary catheter, initial encounter (principal); L89.513 Pressure ulcer of right ankle, stage 3; L89.313 Pressure ulcer of right buttock, stage 3; L89.523 Pressure ulcer of left ankle, stage 3; A41.9 Sepsis, unspecified organism; G93.41 Metabolic encephalopathy; N39.0 Urinary tract infection, site not specified; G61.0 Guillain-Barre syndrome; G82.20 Paraplegia, unspecified; N17.9 Acute kidney failure, unspecified; F05 Delirium due to known physiological condition; Z79.4 Long term (current) use of insulin; Z79.01 Long term (current) use of anticoagulants; F02.80 Dementia in other diseases classified elsewhere, unspecified severity, without behavioral disturbance, psychotic disturbance, mood disturbance, and anxiety; E78.5 Hyperlipidemia, unspecified; N31.9 Neuromuscular dysfunction of bladder, unspecified; G20 Parkinson's disease; Z87.891 Personal history of nicotine dependence; Z20.822 Contact with and (suspected) exposure to COVID-19; Z80.1 Family history of malignant neoplasm of trachea, bronchus and lung; Z82.5 Family history of asthma and other chronic lower respiratory diseases; E86.0 Dehydration; L89.612 Pressure ulcer of right heel, stage 2; R33.9 Retention of urine, unspecified; E11.65 Type 2 diabetes mellitus with hyperglycemia; K21.9 Gastro-esophageal reflux disease without esophagitis; G40.909 Epilepsy, unspecified, not intractable, without status epilepticus; Z86.718 Personal history of other venous thrombosis and embolism; Z87.440 Personal history of urinary (tract) infections; E11.621 Type 2 diabetes mellitus with foot ulcer; Z86.14 Personal history of Methicillin resistant Staphylococcus aureus infection; Z93.3 Colostomy status; Z93.59 Other cystostomy status; Z72.820 Sleep deprivation; Z95.1 Presence of aortocoronary bypass graft; Z79.899 Other long term (current) drug therapy; N40.0 Benign prostatic hyperplasia without lower urinary tract symptoms; N32.89 Other specified disorders of bladder; M62.3 Immobility syndrome (paraplegic); E11.622 Type 2 diabetes mellitus with other skin ulcer; F41.9 Anxiety disorder, unspecified; F32.9 Major depressive disorder, single episode, unspecified; I10 Essential (primary) hypertension; B96.4 Proteus (mirabilis) (morganii) as the cause of diseases classified elsewhere; Y84.6 Urinary catheterization as the cause of abnormal reaction of the patient, or of later complication, without mention of misadventure at the time of the procedure
CPT/HCPCS: 36415; 70450; 71045; 80048; 80053; 81001; 83036; 84484; 85025; 85027; 85610; 85730; 87040; 87077; 87086; 87186; 87635; 93005; 99285

== ENCOUNTER 2020-11-06 11:54 | Observation (INO) | payer MEDICARE ==
[2020-11-06] MEDS ORDERED: SODIUM CHLORIDE 0.9% 1,000 ML IV STA (12:31)
--- NOTE | 2020-11-06 12:36 | ED ---
General Adult HPI - General Chief complaint: Altered Mental Status Stated complaint: altered mental status Time Seen by Provider: 11/06/20 11:58 Source: EMS Mode of arrival: EMS Limitations: altered mental status - History of Present Illness Initial comments: Dictation was produced using [employer] dictation software. please excuse any grammatical, word or spelling errors. Chief Complaint: 65-year-old demented and had bound male presents to the emergency department for increased confusion, lethargy. Patient allegedly alert and oriented 4 over the last several days patient has been alert and oriented 1. History of Present Illness: 65-year-old male. He is a poor historian. History of present illness is obtained from this receded from EMS. Patient was allegedly discharged from [facility] several weeks ago. Since being at home he is been having declining medical status. Over the last several days been having worsening lethargy, confusion. Patient is bedbound. He has suprapubic catheter. Supposedly patient is alert and oriented 4. Unclear when patient's symptoms began. Patient unable to find history of present illness at this time secondary to mental status. The ROS documented in this emergency department record has been reviewed and confirmed by me. Those systems with pertinent positive or negative responses have been documented in the HPI. All other systems are other negative and/or noncontributory. PHYSICAL EXAM: General Impression: Eyes open, responsive, able to complete 2 word sentences, tremulous, malodorous HEENT: Normocephalic atraumatic, extra-ocular movements intact, pupils equal and reactive to light bilaterally, dry mucous membranes Cardiovascular: Heart regular rate and rhythm Chest: Able to complete full sentences, no retractions, no tachypnea Abdomen: abdomen soft, non-tender, non-distended, no organomegaly, suprapubic catheter in place there does appear to be some purulent drainage coming from the suprapubic site without any significant surrounding erythema Motor: no focal deficits noted Neurological: CN II-XII grossly intact, no focal motor or sensory deficits noted Skin: Multiple decubitus ulcers to the sacrum that appear to be stage IIIII, no surrounding cellulitic erythema. ED course: 65-year-old male with multiple comorbidities. He is bedbound. He presents to the emergency department for increased lethargy, changes in mental status. Vital signs upon arrival shows temperature 100.0, rest of vital signs within acceptable limits. Rectal temperature is 98.6. Case was discussed with Dr. Lopez. He is very familiar with the patient. He talked to patient's who was concerned about his suprapubic catheter being nonfunctioning. Dr. Lopez states that it's the 's wishes to have this suprapubic catheter replaced and to obtain a hospice consult if possible in the emergency department Hospitalist was contacted by our audio visual secretary and states that they will come and evaluate him prior to discharge back home. EKG interpretation: Ventricular rate 84, normal sinus rhythm,. 160, QRS 116, QTC 460. No MA prolongation, no QTC prolongation, no ST or T-wave changes noted. Overall, this EKG is unremarkable Multiple attempts was made by nurse to change suprapubic catheter. She reports that the catheter is easily place however there is thick purulent discharge that is obstructing the catheter. was contacted reports that she would prefer that patient be placed in the hospital for troubleshooting of the suprapubic catheter. Patient will have hospice consult. Laboratory evaluation obtained. CBC, coag panel, metabolic panel is all within acceptable limits. Rotavirus is negative. Chest x-ray brain CT shows no acute processes. Case discussed Dr. Lopez is A patient's care to observation. Urology will be consulted. - Related Data Home Medications Medication Instructions Recorded Confirmed Apixaban [Eliquis] 5 mg PO BID 07/27/17 11/06/20 Carbidopa-Levodopa 10-100 mg 1 tab PO TID 04/06/18 11/06/20 [Sinemet 10-100 mg] Losartan [Cozaar] 25 mg PO DAILY 11/05/19 11/06/20 methocarbamoL [Robaxin] 500 mg PO HS 11/05/19 11/06/20 Hydrochlorothiazide 12.5 mg PO DAILY 08/24/20 11/06/20 [hydroCHLOROthiazide] Gabapentin [Neurontin] 800 mg PO Q8H 11/06/20 11/06/20 Insulin Aspart [NovoLOG Flexpen] See Protocol SQ AC-TID 11/06/20 11/06/20 Insulin Glargine/Lixisenatide 55 units SQ HS 11/06/20 11/06/20 [Soliqua 100 Unit-33 Mcg/ml Pen] Previous Rx's Medication Instructions Recorded Oxybutynin ER [Ditropan Xl] 15 mg PO DAILY tab.er.24 10/03/20 Pantoprazole Sodium [Protonix] 40 mg PO DAILY #1 tablet. 10/03/20 Allergies Allergy/AdvReac Type Severity Reaction Status Date / Time levofloxacin [From Levaquin] Allergy Unknown Verified 11/06/20 13:24 Review of Systems ROS Statement: Those systems with pertinent positive or pertinent negative responses have been documented in the HPI. ROS Other: All systems not noted in ROS Statement are negative. Past Medical History Past Medical History: Dementia, Diabetes Mellitus, Deep Vein Thrombosis (DVT), Hyperlipidemia, Hypertension, Memory Impairment, Prostate Disorder Additional Past Medical History / Comment(s): Spouse states pt has pulled out IVs and other equipment and has thrown himself out of bed in the past-recommends side rails be up at all times, DVT B/L LE, insomnia, osteomeylitis- coccyx wound has had hyerbaric tx and wound vac in the past- goes to [facility] , colostomy d/t coccyx wound, uti's, guillain barre syndrome, neurogenic bladder has suprapubic cath-last changed 08/24/20, paraplegia SINCE LAMINECTOMY FEB 15, 2017-PARALIZED WAIST DOWN, abd hernia, peg tube previously, limited ROM with neck, NIDDM now diet controlled/possible bilateral foot neuropathy. stated "that the dementia pt has also has parkinson like symptoms". 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 Supra PUBIC CATH (changed last 08/24/20), picc lines-since removed, previous peg tube Past Anesthesia/Blood Transfusion Reactions: Previous Problems w/ Anesthesia Additional Past Anesthesia/Blood Transfusion Reaction / Comment(s): when pt had 2 sx within a short time from each other ,he had diffiuclty waking up. Past blood transfusion-no reaction Past Psychological History: Anxiety, Depression Smoking Status: Former smoker Past Alcohol Use History: Rare Past Drug Use History: None Reported - Past Family History Brother(s) Family Medical History: Cancer Additional Family Medical History / Comment(s): Lung cancer Mother Additional Family Medical History / Comment(s): emphysema Father Additional Family Medical History / Comment(s): emphysema General Exam Limitations: altered mental status Course Vital Signs 11/06/20 11/06/20 12:00 15:43 Temperature 100.0 F H Pulse Rate 90 62 Respiratory 20 18 Rate Blood Pressure 110/60 110/72 O2 Sat by Pulse 98 96 Oximetry Medical Decision Making - Lab Data Result diagrams: 11/06/20 13:05 11/06/20 13:05 Lab Results 11/06/20 11/06/20 11/06/20 Range/Units 13:05 13:05 13:05 WBC 10.4 (3.8-10.6) k/uL RBC 4.05 L (4.30-5.90) m/uL Hgb 11.7 L (13.0-17.5) gm/dL Hct 34.6 L (39.0-53.0) % MCV 85.5 (80.0-100.0) fL MCH 28.9 (25.0-35.0) pg MCHC 33.8 (31.0-37.0) g/dL RDW 15.1 (11.5-15.5) % Plt Count 355 (150-450) k/uL MPV 7.1 Neutrophils % 85 % Lymphocytes % 8 % Monocytes % 5 % Eosinophils % 1 % Basophils % 0 % Neutrophils # 8.9 H (1.3-7.7) k/uL Lymphocytes # 0.8 L (1.0-4.8) k/uL Monocytes # 0.5 (0-1.0) k/uL Eosinophils # 0.1 (0-0.7) k/uL Basophils # 0.0 (0-0.2) k/uL PT 12.3 H (9.0-12.0) sec INR 1.2 H (<1.2) APTT 28.3 (22.0-30.0) sec Sodium 137 (137-145) mmol/L Potassium 4.0 (3.5-5.1) mmol/L Chloride 100 (98-107) mmol/L Carbon Dioxide 24 (22-30) mmol/L Anion Gap 13 mmol/L BUN 44 H (9-20) mg/dL Creatinine 1.56 H (0.66-1.25) mg/dL Est GFR (CKD-EPI)AfAm 52 (>60 ml/min/1.73 sqM) Est GFR (CKD-EPI)NonAf 45 (>60 ml/min/1.73 sqM) Glucose 164 H (74-99) mg/dL Plasma Lactic Acid Stanley (0.7-2.0) mmol/L Calcium 8.6 (8.4-10.2) mg/dL Magnesium 2.3 (1.6-2.3) mg/dL Total Bilirubin 0.9 (0.2-1.3) mg/dL AST 24 (17-59) U/L ALT 12 (4-49) U/L Alkaline Phosphatase 90 (38-126) U/L Total Protein 7.5 (6.3-8.2) g/dL Albumin 3.6 (3.5-5.0) g/dL Coronavirus (PCR) (Not Detectd) 11/06/20 11/06/20 Range/Units 13:05 14:05 WBC (3.8-10.6) k/uL RBC (4.30-5.90) m/uL Hgb (13.0-17.5) gm/dL Hct (39.0-53.0) % MCV (80.0-100.0) fL MCH (25.0-35.0) pg MCHC (31.0-37.0) g/dL RDW (11.5-15.5) % Plt Count (150-450) k/uL MPV Neutrophils % % Lymphocytes % % Monocytes % % Eosinophils % % Basophils % % Neutrophils # (1.3-7.7) k/uL Lymphocytes # (1.0-4.8) k/uL Monocytes # (0-1.0) k/uL Eosinophils # (0-0.7) k/uL Basophils # (0-0.2) k/uL PT (9.0-12.0) sec INR (<1.2) APTT (22.0-30.0) sec Sodium (137-145) mmol/L Potassium (3.5-5.1) mmol/L Chloride (98-107) mmol/L Carbon Dioxide (22-30) mmol/L Anion Gap mmol/L BUN (9-20) mg/dL Creatinine (0.66-1.25) mg/dL Est GFR (CKD-EPI)AfAm (>60 ml/min/1.73 sqM) Est GFR (CKD-EPI)NonAf (>60 ml/min/1.73 sqM) Glucose (74-99) mg/dL Plasma Lactic Acid Stanley 1.6 (0.7-2.0) mmol/L Calcium (8.4-10.2) mg/dL Magnesium (1.6-2.3) mg/dL Total Bilirubin (0.2-1.3) mg/dL AST (17-59) U/L ALT (4-49) U/L Alkaline Phosphatase (38-126) U/L Total Protein (6.3-8.2) g/dL Albumin (3.5-5.0) g/dL Coronavirus (PCR) Not Detected (Not Detectd) Disposition Clinical Impression: Suprapubic catheter dysfunction Disposition: ADMITTED IP TO THIS HOSP Condition: Fair Referrals: Gilmer Lopez MD [Primary Care Provider] - 1-2 days
[2020-11-06 13:43] LABS: Albumin 3.6 g/dL (3.5-5.0); Calcium 8.6 mg/dL (8.4-10.2); INR 1.2 (<1.2); Magnesium 2.3 mg/dL (1.6-2.3); Partial Thromboplastin Time 28.3 sec (22.0-30.0); Prothrombin Time 12.3 sec (9.0-12.0); Total Bilirubin 0.9 mg/dL (0.2-1.3); Total Protein 7.5 g/dL (6.3-8.2)
[2020-11-06 13:49] LABS: Basophils % (A) 0 %; Eosinophils # (A) 0.1 k/uL (0-0.7); Eosinophils % (A) 1 %; HCT 34.6 % (39.0-53.0); HGB 11.7 gm/dL (13.0-17.5); Lymphocytes # (A) 0.8 k/uL (1.0-4.8); Lymphocytes % (A) 8 %; MCH 28.9 pg (25.0-35.0); MCHC 33.8 g/dL (31.0-37.0); MCV 85.5 fL (80.0-100.0); Mean Platelet Volume 7.1; Monocytes # (A) 0.5 k/uL (0-1.0); Monocytes % (A) 5 %; Neutrophils # (A) 8.9 k/uL (1.3-7.7); Neutrophils % (A) 85 %; Platelet Count 355 k/uL (150-450); RBC 4.05 m/uL (4.30-5.90); RDW 15.1 % (11.5-15.5); WBC 10.4 k/uL (3.8-10.6)
--- NOTE | 2020-11-06 13:54 | XR ---
EXAMINATION TYPE: XR chest 1V portable DATE OF EXAM: 11/06/2020 COMPARISON: Chest x-ray September 29, 2020 HISTORY: Unresponsive and weak. TECHNIQUE: Single frontal view of the chest is obtained. FINDINGS: Overlying Sternal wires and mediastinal clips redemonstrated. Persistent low lung volumes a nd chronic parenchymal changes. There is no new suspicious focal air space opacity, pleural effusion, or pneumothorax seen. The cardiac silhouette size is stable and enlarged. The osseous structures are intact. IMPRESSION: Chronic changes and low lung volumes with cardiomegaly without acute pulmonary process. No significant change from prior.
--- NOTE | 2020-11-06 13:54 | CT ---
EXAMINATION TYPE: CT brain wo con DATE OF EXAM: 11/06/2020 COMPARISON: CT brain 09/29/2020 HISTORY: altered mental status CT DLP: 1063.4 mGycm Automated exposure control for dose reduction was used. Helical imaging through the brain FINDINGS: Calvarium is intact. Paranasal sinuses and mastoid air cells as visualized are normal. There is no he morrhage or hydrocephalus. Periventricular white matter shows patchy low attenuation. There is some c ortical atrophy present. Cerebral vascular calcifications are present. IMPRESSION: AGE-RELATED CHANGES OF ATROPHY AND CHRONIC SMALL VESSEL ISCHEMIA ARE STABLE., CONSIDER BRAIN MRI I NDICATED
[2020-11-06] MEDS ORDERED: NALOXONE 0.4 MG/ML 1 ML VIAL IV PRN (16:03)
[2020-11-06] MEDS ORDERED: MORPHINE SULFATE 4 MG/ML SYRINGE IV STA (16:51)
[2020-11-06] MEDS: GABAPENTIN 400 MG CAP PO SCH ×2 (17:07→21:24)
[2020-11-06] MEDS ORDERED: ACETAMINOPHEN IV (For NPO) 1,000 MG in EMPTY BAG 1 BAG IVPB ONE (18:34)
[2020-11-06] MEDS ORDERED: methocarbamoL 500 MG TAB PO SCH (21:00)
[2020-11-06 21:19] VITALS: BP 134/69; PULSE 94; RESP 16; TEMP 98.9
[2020-11-06] MEDS: CARBIDOPA-LEVODOPA 10-100 MG 1 EACH TAB PO SCH (21:24)
[2020-11-06] MEDS: APIXABAN 5 MG TAB PO SCH (21:24)
[2020-11-07] MEDS: SODIUM CHLORIDE 0.9% 1,000 ML IV SCH ×2 (05:37→07:58)
[2020-11-07] MEDS ORDERED: PANTOPRAZOLE 40 MG TABLET PO SCH (07:30)
[2020-11-07] MEDS ORDERED: LOSARTAN 25 MG TAB PO SCH (09:00)
[2020-11-07] MEDS ORDERED: hydroCHLOROthiazide 12.5 MG CAP PO SCH (09:00)
[2020-11-07] MEDS ORDERED: OXYBUTYNIN 15 MG TAB.ER.24 PO SCH (09:00)
[2020-11-07] MEDS: GABAPENTIN 400 MG CAP PO SCH (09:28)
[2020-11-07] MEDS: APIXABAN 5 MG TAB PO SCH (09:28)
[2020-11-07] MEDS: CARBIDOPA-LEVODOPA 10-100 MG 1 EACH TAB PO SCH (09:28)
[2020-11-07] MEDS ORDERED: LORazepam 2 MG/ML INJ IV STA (11:02)
[2020-11-07] MEDS ORDERED: MORPHINE SULFATE 4 MG/ML SYRINGE IVP STA (11:02)
[2020-11-07 11:35] VITALS: BMI 35.9
--- NOTE | 2020-11-07 11:58 | P.HPIM ---
History of Present Illness H&P Date: 11/07/20 Chief Complaint: Failure to thrive, depression ,malfunctioning S/P catheter History and Physical and Discharge Summary This is a 65-year-old paraplegic with past medical history of dementia, diabetes mellitus, GERD, hyperlipidemia, hypertension, seizure disorder, DVT , osteomyelitis of the coccyx, status post colostomy, neurogenic bladder status post suprapubic catheter, paraplegia since laminectomy in February 2017 and paralyzed from waist down, previous infection with MRSA/VRE and Parkinson disease, recently admitted with sepsis secondary to recurrent acute UTI, Proteus Mirabilis, discharged to [facility] subacute rehab. reports that patient was very happy [facility], thriving, until there was a outbreak of covid with subsequent prohibited visitation. Patient was not even able to have a window visit. Patient became significantly depressed, quit eating, declined and brought him home last week. Received home care. As the week progressed, increased confusion and weakness with minimal diet intake-bites. Unable to take his medications over the last couple of days. reports patient asked her to stop encouraging him to eat and take meds. reports home care team recommending palliative care/hospice and PT reported significant decline compared to one year ago. Also reports malfunctioning suprapubic catheter, leaking. PCP, Dr. Lopez informed ER that requesting suprapubic catheter be replaced as well as initiate hospice consult. On arrival, temperature 100, T-max 100.6, currently 98.9. WBC within normal limits, hemoglobin 11.7, platelets 355. BUN 44, creatinine 1.56, glucose 164 and the lactic acid 1.6, magnesium 2.3. Coronavirus not detected. Wound and urine cultures obtained. Evaluated by Urology, suprapubic catheter exchanged this morning, tolerated procedure well. Hospice met with the patient and during the night. requesting discharge home with hospice. Patient currently in deep sleep. Staff reported -alert and oriented 1, minimally conversing with a couple of words. Receiving IV fluid hydration. Review of Systems ROS Statement: Those systems with pertinent positive or pertinent negative responses have been documented in the HPI. ROS Other: All systems not noted in ROS Statement are negative. Past Medical History Past Medical History: Dementia, Diabetes Mellitus, Deep Vein Thrombosis (DVT), Hyperlipidemia, Hypertension, Memory Impairment, Prostate Disorder Additional Past Medical History / Comment(s): DVT B/L LE, insomnia, osteomeylit is- coccyx wound has had hyerbaric tx and wound vac in the past- goes to [facility] every , colostomy d/t coccyx wound, uti's, guillain barre syndrome, neurogenic bladder has suprapubic cath-last changed 08/24/20, paraplegia SINCE LAMINECTOMY FEB 15, 2017-PARALIZED WAIST DOWN, abd hernia, peg tube previously, limited ROM with neck, NIDDM now diet controlled/possible bilateral foot neuropathy. stated "that the dementia pt has also has parkinson like symptoms". History of Any Multi-Drug Resistant Organisms: MRSA, VRE Date of last positivie culture/infection: 08/26/20 MRSA;07/28/17 VRE MDRO Source:: Urine-MRSA; Hip- VRE Past Surgical History: Back Surgery, Bowel Resection, Coronary Bypass/CABG, Heart Catheterization Additional Past Surgical History / Comment(s): LAMINECTOMY 02/15/17-has had total of 4 sx (cervical and lumbar), 2015 CABG-5 vessel, piccs-none now, CO LONOSCOPY, COLOSTOMY(was done d/t non healing coccyx wound. Supra PUBIC CATH (changed last 08/24/20), picc lines-since removed, previous peg tube Past Anesthesia/Blood Transfusion Reactions: Previous Problems w/ Anesthesia Additional Past Anesthesia/Blood Transfusion Reaction / Comment(s): when pt had 2 sx within a short time from each other ,he had diffiuclty waking up. Past blood transfusion-no reaction Past Psychological History: Anxiety, Depression Additional Psychological History / Comment(s): Patient currently lives at [facility] Smoking Status: Former smoker Past Alcohol Use History: Rare Additional Past Alcohol Use History / Comment(s): started smoking at age 17 and QUIT SMOKING cigarettes 1992-started smoking cigars and , QUIT CIGARS 2009, no alcohol now Past Drug Use History: None Reported - Past Family History Brother(s) Family Medical History: Cancer Additional Family Medical History / Comment(s): Lung cancer Mother Additional Family Medical History / Comment(s): emphysema Father Additional Family Medical History / Comment(s): emphysema Medications and Allergies Home Medications Medication Instructions Recorded Confirmed Type Apixaban [Eliquis] 5 mg PO BID 07/27/17 11/06/20 History Losartan [Cozaar] 25 mg PO DAILY 11/05/19 11/06/20 History Oxybutynin ER [Ditropan Xl] 15 mg PO DAILY tab.er.24 10/03/20 11/06/20 Rx Insulin Aspart [NovoLOG Flexpen] See Protocol SQ AC-TID 11/06/20 11/06/20 History Allergies Allergy/AdvReac Type Severity Reaction Status Date / Time levofloxacin [From Levaquin] Allergy Unknown Verified 11/06/20 13:24 Physical Exam Vitals: Vital Signs Temp Pulse Pulse Resp BP BP Pulse Ox 11/06/20 20:00 98.9 F 94 16 134/69 98 11/06/20 18:44 100.6 F H 11/06/20 18:37 97 20 112/65 97 11/06/20 17:00 14 11/06/20 15:43 62 18 110/72 96 11/06/20 12:00 100.0 F H 90 20 110/60 98 Intake and Output 11/06/20 11/07/20 11/07/20 22:59 06:59 14:59 Intake Total 750 Output Total 400 Balance 350 Intake: Intake, IV Titration 750 Amount Sodium Chloride 0.9% 1, 750 000 ml @ 75 mls/hr IV . [id number] [facility] Rx#:[id number] Output: Urine 400 Other: Voiding Method Indwelling Catheter Indwelling Catheter Weight 113.398 kg - Exam General: Lying in bed, deep sleep, appears comfortable Neck: Supple, no JVD Cardiac: [Heart regular in rate and rhythm. No S3. No S4. No clicks, rubs. No murmur.] Lungs: [Clear to auscultation bilaterally, bilateral bases diminished.] Abdomen: [No mass. No organomegaly. Functioning Colostomy present.Bowel sounds positive all 4 quadrants, suprapubic catheter present with hematuria. Skin:Sacral/right buttock unstageable, left calf-Stage II, right heel stage II. refer to specific sizing per nursing documentation/pictures Neurologic: Limited exam, Paraplegic. Results CBC & Chem 7: 11/06/20 13:05 11/06/20 13:05 Labs: Abnormal Lab Results - Last 24 Hours (Table) 11/06/20 11/06/20 11/06/20 Range/Units 13:05 13:05 13:05 RBC 4.05 L (4.30-5.90) m/uL Hgb 11.7 L (13.0-17.5) gm/dL Hct 34.6 L (39.0-53.0) % Neutrophils # 8.9 H (1.3-7.7) k/uL Lymphocytes # 0.8 L (1.0-4.8) k/uL PT 12.3 H (9.0-12.0) sec INR 1.2 H (<1.2) BUN 44 H (9-20) mg/dL Creatinine 1.56 H (0.66-1.25) mg/dL Glucose 164 H (74-99) mg/dL Microbiology - Last 24 Hours (Table) 11/06/20 14:14 Gram Stain - Preliminary Tissue - Other Wound Culture - Preliminary 11/06/20 14:14 Anaerobic Culture - Preliminary Tissue - Other Thrombosis Risk Factor Assmnt - Choose All That Apply Any of the Below Risk Factors Present?: No Other Risk Factors: Yes Each Risk Factor Represents 2 Points: Age 61-74 years Each Risk Factor Represents 3 Points: History of DVT/PE Other congenital or acquired thrombophilia - If yes, enter type in comment: No Thrombosis Risk Factor Assessment Total Risk Factor Score: 5 Thrombosis Risk Factor Assessment Level: High Risk Assessment and Plan Assessment: Failure to thrive, medical debility ,depression, in a patient with advanced dementia, Parkinson's disease, paraplegia, in the process of converting to hospice Mal-functioning SP catheter-changed this morning as per urology Acute metabolic encephalopathy multifactorial secondary to all the above Recent sepsis secondary to recurrent Acute UTI, Proteus Mirabilis in a patient with an SP catheter,SP catheter last changed out as per urology 09/30/20. Dehydration Acute renal failure secondary to the above Parkinson's disease, dementia Chronic Pressure ulcers of the right ischium,buttock, left calf stage II, right kaufman & heel, stage II Chronic Urinary retention with SP catheter History of Bladder wall thickness per CT, urology recommending outpatient cystoscopy Diabetes mellitus Hypertension Hyperlipidemia GERD History of seizure disorder on Keppra History of DVT on Eliquis Paraplegia No code, no CPR, no intubation Hospice pending Plan: Continue on current medication regime ,monitoring and symptomatic treatment. Patient's reports she has discussed with Dr. Lopez, her wishes to proceed with hospice care given patient's significant decline and quality of life. Spiritual care offered, states she will obtain once home. Patient will be discharged home today with [facility] opening once home. Prognosis guarded given multiple complex medical issues. The impression and plan of care has been dictated as directed. : I performed a history and examination of this patient, discussed the same with the dictator. I agree with the dictator's note ,documented as a scribe. Any additional findings or plans will be noted.
--- NOTE | 2020-11-07 15:25 | P.GSCN ---
History of Present Illness Consult date: 11/07/20 Reason for Consult: Leaking suprapubic tube Requesting physician: Gilmer Lopez History of present illness: Mr. Adam is a 65-year-old male with a neurogenic bladder and paraplegia, being managed with a suprapubic catheter for the past 4 years. His reports that he has recently experienced increased urinary leakage around the catheter, and she is concerned it is malfunctioning. Review of Systems - Genitourinary Reports as per HPI Past Medical History Past Medical History: Dementia, Diabetes Mellitus, Deep Vein Thrombosis (DVT), Hyperlipidemia, Hypertension, Memory Impairment, Prostate Disorder Additional Past Medical History / Comment(s): DVT B/L LE, insomnia, osteomeylitis- coccyx wound has had hyerbaric tx and wound vac in the past- goes to [facility] every , colostomy d/t coccyx wound, uti's, guillain barre syndrome, neurogenic bladder has suprapubic cath-last changed 08/24/20, paraplegia SINCE LAMINECTOMY FEB 15, 2017-PARALIZED WAIST DOWN, abd hernia, peg tube previously, limited ROM with neck, NIDDM now diet controlled/possible bilateral foot neuropathy. stated "that the dementia pt has also has parkinson like symptoms". History of Any Multi-Drug Resistant Organisms: MRSA, VRE Year Discovered:: 08/26/20 MRSA;07/28/17 VRE MDRO Source:: Urine-MRSA; Hip- VRE Past Surgical History: Back Surgery, Bowel Resection, Coronary Bypass/CABG, Heart Catheterization Additional Past Surgical History / Comment(s): LAMINECTOMY 02/15/17-has had total of 4 sx (cervical and lumbar), 2016 CABG-5 vessel, piccs-none now, COLONOSCOPY, COLOSTOMY(was done d/t non healing coccyx wound. Supra PUBIC CATH (changed last 08/24/20), picc lines-since removed, previous peg tube Past Anesthesia/Blood Transfusion Reactions: Previous Problems w/ Anesthesia Additional Past Anesthesia/Blood Transfusion Reaction / Comm: when pt had 2 sx within a short time from each other ,he had diffiuclty waking up. Past blood transfusion-no reaction Past Psychological History: Anxiety, Depression Additional Psychological History / Comment(s): Patient currently lives at [facility] Smoking Status: Former smoker Past Alcohol Use History: Rare Additional Past Alcohol Use History / Comment(s): started smoking at age 17 and QUIT SMOKING cigarettes 1992-started smoking cigars and , QUIT CIGARS 2009, no alcohol now Past Drug Use History: None Reported - Past Family History Brother(s) Family Medical History: Cancer Additional Family Medical History / Comment(s): Lung cancer Mother Additional Family Medical History / Comment(s): emphysema Father Additional Family Medical History / Comment(s): emphysema Medications and Allergies Home Medications Medication Instructions Recorded Confirmed Type Apixaban [Eliquis] 5 mg PO BID 07/27/17 11/06/20 History Losartan [Cozaar] 25 mg PO DAILY 11/05/19 11/06/20 History Oxybutynin ER [Ditropan Xl] 15 mg PO DAILY tab.er.24 10/03/20 11/06/20 Rx Insulin Aspart [NovoLOG Flexpen] See Protocol SQ AC-TID 11/06/20 11/06/20 History Allergies Allergy/AdvReac Type Severity Reaction Status Date / Time levofloxacin [From Levaquin] Allergy Unknown Verified 11/06/20 13:24 Surgical - Exam Vital Signs Temp Pulse Resp BP Pulse Ox 100.0 F H 90 20 110/60 98 11/06/20 12:00 11/06/20 12:00 11/06/20 12:00 11/06/20 12:00 11/06/20 12:00 - General well developed, well nourished, no distress - Respiratory normal respiratory effort - Abdomen Soft, non-distended. A 16-Irish SP catheter intact. - Psychiatric oriented to time, oriented to person, oriented to place, speech is normal, memory intact Results - Labs 11/06/20 13:05 11/06/20 13:05 Abnormal Lab Results - Last 24 Hours (Table) 11/06/20 11/06/20 11/06/20 Range/Units 13:05 13:05 13:05 RBC 4.05 L (4.30-5.90) m/uL Hgb 11.7 L (13.0-17.5) gm/dL Hct 34.6 L (39.0-53.0) % Neutrophils # 8.9 H (1.3-7.7) k/uL Lymphocytes # 0.8 L (1.0-4.8) k/uL PT 12.3 H (9.0-12.0) sec INR 1.2 H (<1.2) BUN 44 H (9-20) mg/dL Creatinine 1.56 H (0.66-1.25) mg/dL Glucose 164 H (74-99) mg/dL Microbiology - Last 24 Hours (Table) 11/06/20 14:14 Gram Stain - Preliminary Tissue - Other Wound Culture - Preliminary 11/06/20 14:14 Anaerobic Culture - Preliminary Tissue - Other Diabetes panel 11/06/20 Range/Units 13:05 Sodium 137 (137-145) mmol/L Potassium 4.0 (3.5-5.1) mmol/L Chloride 100 (98-107) mmol/L Carbon Dioxide 24 (22-30) mmol/L BUN 44 H (9-20) mg/dL Creatinine 1.56 H (0.66-1.25) mg/dL Glucose 164 H (74-99) mg/dL Calcium 8.6 (8.4-10.2) mg/dL AST 24 (17-59) U/L ALT 12 (4-49) U/L Alkaline Phosphatase 90 (38-126) U/L Total Protein 7.5 (6.3-8.2) g/dL Albumin 3.6 (3.5-5.0) g/dL Calcium panel 11/06/20 Range/Units 13:05 Calcium 8.6 (8.4-10.2) mg/dL Albumin 3.6 (3.5-5.0) g/dL Pituitary panel 11/06/20 Range/Units 13:05 Sodium 137 (137-145) mmol/L Potassium 4.0 (3.5-5.1) mmol/L Chloride 100 (98-107) mmol/L Carbon Dioxide 24 (22-30) mmol/L BUN 44 H (9-20) mg/dL Creatinine 1.56 H (0.66-1.25) mg/dL Glucose 164 H (74-99) mg/dL Calcium 8.6 (8.4-10.2) mg/dL Adrenal panel 11/06/20 Range/Units 13:05 Sodium 137 (137-145) mmol/L Potassium 4.0 (3.5-5.1) mmol/L Chloride 100 (98-107) mmol/L Carbon Dioxide 24 (22-30) mmol/L BUN 44 H (9-20) mg/dL Creatinine 1.56 H (0.66-1.25) mg/dL Glucose 164 H (74-99) mg/dL Calcium 8.6 (8.4-10.2) mg/dL Total Bilirubin 0.9 (0.2-1.3) mg/dL AST 24 (17-59) U/L ALT 12 (4-49) U/L Alkaline Phosphatase 90 (38-126) U/L Total Protein 7.5 (6.3-8.2) g/dL Albumin 3.6 (3.5-5.0) g/dL Assessment and Plan (1) Suprapubic catheter dysfunction Status: Acute Code(s): T83.010A - BREAKDOWN (MECHANICAL) OF CYSTOSTOMY CATHETER, INIT ENCNTR SNOMED Code(s): 130006844 (2) Neurogenic bladder Status: Chronic Code(s): N31.9 - NEUROMUSCULAR DYSFUNCTION OF BLADDER, UNSPECIFIED SNOMED Code(s): 249925652 Plan: I reassured the patient's that leakage around a suprapubic cystostomy tube is not unusual. Under sterile conditions, I exchanged the 16-Irish catheter for an 18-Irish catheter. Please notify me if I can be of further assistance.
== END 2020-11-07 12:42 | disposition hospice, home (50) ==
LOC: EC 11:54 → 5NMEDONC 16:03
PROVIDERS: ADMIT Family Medicine; ATTEND Family Medicine
DX: R62.7 Adult failure to thrive (principal); F32.9 Major depressive disorder, single episode, unspecified; F02.80 Dementia in other diseases classified elsewhere, unspecified severity, without behavioral disturbance, psychotic disturbance, mood disturbance, and anxiety; G20 Parkinson's disease; G93.41 Metabolic encephalopathy; E86.0 Dehydration; N17.9 Acute kidney failure, unspecified; E78.5 Hyperlipidemia, unspecified; I10 Essential (primary) hypertension; E11.40 Type 2 diabetes mellitus with diabetic neuropathy, unspecified; L89.310 Pressure ulcer of right buttock, unstageable; L89.612 Pressure ulcer of right heel, stage 2; L89.892 Pressure ulcer of other site, stage 2; T83.090A Other mechanical complication of cystostomy catheter, initial encounter; R33.9 Retention of urine, unspecified; R41.3 Other amnesia; G47.00 Insomnia, unspecified; G61.0 Guillain-Barre syndrome; N31.9 Neuromuscular dysfunction of bladder, unspecified; G82.20 Paraplegia, unspecified; F41.9 Anxiety disorder, unspecified; K21.9 Gastro-esophageal reflux disease without esophagitis; G40.909 Epilepsy, unspecified, not intractable, without status epilepticus; R31.9 Hematuria, unspecified; Z20.822 Contact with and (suspected) exposure to COVID-19; Z74.01 Bed confinement status; Z79.01 Long term (current) use of anticoagulants; Z79.899 Other long term (current) drug therapy; Z79.4 Long term (current) use of insulin; Z88.1 Allergy status to other antibiotic agents; Z93.3 Colostomy status; Z86.718 Personal history of other venous thrombosis and embolism; Z87.440 Personal history of urinary (tract) infections; Z86.14 Personal history of Methicillin resistant Staphylococcus aureus infection; Z16.24 Resistance to multiple antibiotics; Z95.1 Presence of aortocoronary bypass graft; Z87.891 Personal history of nicotine dependence; Z86.19 Personal history of other infectious and parasitic diseases; Z86.711 Personal history of pulmonary embolism; Z90.49 Acquired absence of other specified parts of digestive tract; Z66 Do not resuscitate; Y73.8 Miscellaneous gastroenterology and urology devices associated with adverse incidents, not elsewhere classified; Z80.1 Family history of malignant neoplasm of trachea, bronchus and lung; Z82.5 Family history of asthma and other chronic lower respiratory diseases
CPT/HCPCS: 96376; 96361 ×2; 96375; 96374; 99285; 36415; 80053; 83605; 83735; 85025; 85610; 85730; 87070; 87086; 87205; 87075; 87077 ×2; 87186 ×2; 87635; 71045; 70450; G0378 ×2; J2060; J2270 ×2; 93005